=== PATIENT | male | born 1980 | race African-American/Black ===

== ENCOUNTER 2022-10-16 18:13 | Inpatient (IN) | payer OTHER, SELFPAY ==
[2022-10-16] VITALS (7 sets, daily range): BP systolic 97–111; BP diastolic 53–78; PULSE 119–149; RESP 14–24; TEMP 37.5; O2SAT 94–99
--- NOTE | ~2022-10-16 | XR_ITS ---
EXAMINATION: XR chest 1V portable DATE: 10/25/2022 06:12 INDICATION: Intubated. TECHNIQUE: A single frontal view of the chest was obtained. COMPARISON: Chest single view 10/24/2022, CT abdomen and pelvis 11/15/2022 FINDINGS: There are airspace opacities in the mid and lower lung zones. No pleural effusion or pneumo thorax. The heart size is normal. The endotracheal tube tip is 2.5 cm above the chel. The nasogastr ic tube tip is in the stomach. A right internal jugular central venous catheter is seen with tip at t he superior cavoatrial junction. IMPRESSION: 1. Airspace opacities in the mid and lower lung zones with improvement on the right, consistent with atelectasis versus pneumonia. Reviewed, dictated and finalized at location A. D WASTE COLLECTOR IMPRESSION: 1. Airspace opacities in the mid and lower lung zones with improvement on the r ight, consistent with atelectasis versus pneumonia.
--- NOTE | ~2022-10-16 | XR_ITS ---
XR chest 1V portable 10/27/2022 06:39 Indication: Respiratory failure Procedure: AP portable chest Comparison: Comparison to multiple prior studies sequentially, with oldest reviewed study dated 09/26. Findings: Endotracheal tube tip 2.8 cm above the chel. NG tube in the stomach. Right IJ central alejandra e tip near the cavoatrial junction. Heart size normal. Right perihilar and bibasilar airspace disease . Small right pleural effusion. No pneumothorax. Impression: 1: Stable right perihilar and bibasilar airspace disease which may represent pneumonia and/or atelect asis 2: Small right pleural effusion.. Reviewed, dictated and finalized at location A. ISH PROFESSOR Impression: 1: Stable right perihilar and bibasilar airspace disease which may represent pn eumonia and/or atelectasis 2: Small right pleural effusion..
--- NOTE | ~2022-10-16 | XR_ITS ---
EXAMINATION: XR chest 1V portable DATE: 10/28/2022 06:26 INDICATION: Respiratory failure TECHNIQUE: frontal view of the chest was obtained. COMPARISON: Chest radiograph dated 10/27/2022 FINDINGS: Endotracheal tube tip 2.5 cm above the chel. Nasogastric tube tip in proximal side port in the body of the stomach. Right internal jugular central venous catheter with distal tip at the superior cavoa trial junction. Opacities in the bilateral mid and lower lung zones with interval increase in the left perihilar cyndi on. No pneumothorax or definitive pleural effusion. The cardiomediastinal silhouette is within normal limits conifer rightward rotation of the patient. IMPRESSION: 1. Opacities in the bilateral mid and lower lung zones with increasing left perihilar region which co uld represent pneumonia, pulmonary edema, atelectasis or some combination thereof. Reviewed, dictated and finalized at location A. COORDINATOR IMPRESSION: 1. Opacities in the bilateral mid and lower lung zones with increasing left per ihilar region which could represent pneumonia, pulmonary edema, atelectasis or some combination thereof.
--- NOTE | ~2022-10-16 | XR_ITS ---
EXAMINATION: XR chest 1V portable DATE: 10/30/2022 06:19 INDICATION: Respiratory failure TECHNIQUE: frontal view of the chest was obtained. COMPARISON: Chest radiograph dated 10/29/22 FINDINGS: Reason increased lucency with architectural distortion prominent than the left lung and right upper l raul zone consistent with emphysema. Subtle increased opacities in the right lower lung zone. Mild alejandra ear atelectasis/scarring at the left lung base. No pleural effusion or pneumothorax. The cardiomedias tinal silhouette is normal. IMPRESSION: 1. Opacities in the right lower lung zone consistent with atelectasis and/or pneumonia. 2. Emphysema. Reviewed, dictated and finalized at location A. OWNER OPERATOR IMPRESSION: 1. Opacities in the right lower lung zone consistent with atelectasis and/or pn eumonia. 2. Emphysema.
--- NOTE | ~2022-10-16 | XR_ITS ---
EXAMINATION: XR chest 1V portable INDICATION: Central line position assessment TECHNIQUE: Portable AP chest at 0409 hours COMPARISON: 10/30/2022 FINDINGS: A right internal jugular central venous catheter is partially retracted but remains in the proximal superior vena cava. There is a small right pleural effusion. No pneumothorax is identified. Right basilar airspace opacities persist with slight worsening. The cardiomediastinal silhouette is s table. The patient is rotated. IMPRESSION: 1. Partially retracted right internal jugular central venous catheter with its tip in the proximal bird perior vena cava. 2. Small right pleural effusion. 3. Right basilar airspace opacity with slight worsening, consistent with atelectasis versus pneumonia . Reviewed, dictated and finalized at location A. TH ASSESSMENT AND TREATMENT TEACHER IMPRESSION: 1. Partially retracted right internal jugular central venous catheter with its tip in the proximal superior vena cava. 2. Small right pleural effusion. 3. Right basilar airspace opacity with slight worsening, consistent with atelec tasis versus pneumonia.
--- NOTE | ~2022-10-16 | XR_ITS ---
EXAMINATION: XR chest 1V portable DATE: 10/31/2022 09:04 INDICATION: Central line adjustment. TECHNIQUE: A single frontal view of the chest was obtained. COMPARISON: Chest single view at 8:42 AM FINDINGS: There are lucencies and interstitial opacities in the lungs, consistent with emphysema. The re are airspace opacities at the lung bases. There are small pleural effusions. No pneumothorax. The heart size is normal. The heart is centered in the right chest, which is chronic. A right upper extre mity peripherally inserted central venous catheter (PICC) is seen with tip in the superior cavoatrial junction. IMPRESSION: 1. PICC tip at the superior cavoatrial junction. 2. Stable airspace opacities at the lung bases, consistent with atelectasis versus pneumonia. 3. Stable small pleural effusions. 4. Emphysema. Reviewed, dictated and finalized at location E. ETING ENGINEER IMPRESSION: 1. PICC tip at the superior cavoatrial junction. 2. Stable airspace opacities at the lung bases, consistent with atelectasis tavo jose pneumonia. 3. Stable small pleural effusions. 4. Emphysema.
--- NOTE | ~2022-10-16 | XR_ITS ---
EXAMINATION: XR chest 1V portable Exam Date/Time: 10/16/2022 20:50 TEXTILE ENGRAVER HISTORY: ams Comparison: CT abdomen and pelvis, same date. RESULT: Lines, tubes, and devices: None. Lungs and pleura: Medial bullae, larger in the left lung. Right basilar linear and subsegmental opac ities. Left medial basal subsegmental atelectasis/consolidation. Cardiomediastinal silhouette: Stable. Other: No acute osseous or upper abdominal finding. IMPRESSION: Anteromedial pulmonary bullae. Right basilar scar/atelectasis. Left medial basal atelectasis/consolid ation. Reviewed, dictated and finalized at location K. ILE ENGRAVER IMPRESSION: Anteromedial pulmonary bullae. Right basilar scar/atelectasis. Left medial basa l atelectasis/consolidation.
--- NOTE | ~2022-10-16 | CT_ITS ---
EXAMINATION: CT abdomen pelvis wo con DATE: 10/16/2022 20:49 INDICATION: Abdominal pain in an autistic, nonverbal patient. TECHNIQUE: Computed tomography (CT) of the abdomen and pelvis was performed without intravenous contr ast. Automated exposure control and iterative reconstruction technique were employed. The dose-length product was 427.12 mGy-cm. COMPARISON: None. FINDINGS: Lower thorax: Anteromedial pulmonary air cysts and bullae, large and extensive on the left. Left basi lar atelectasis/consolidation Liver: Normal. Biliary/Gallbladder: Gallbladder is normal. No bile duct dilation. Pancreas: No mass or duct dilation. Spleen: Normal. Adrenals:No mass. Kidneys: No suspicious mass, stone, or hydronephrosis. Left lower pole simple cyst. GI tract: Severe distal sigmoid and rectal dilation up to 9.4 cm, with a large volume of formed stool . Severe distal sigmoid and rectal wall edema with mild surrounding inflammatory change. No small bow el dilation. Normal appendix. Mesentery/Peritoneum: No ascites, mass, or free air. Retroperitoneum: No mass. Pelvis: Pelvic organs are within normal limits. Soft Tissues: Soft tissues and body wall unremarkable. Bones: No acute osseous finding. IMPRESSION: Marked fecal impaction of the sigmoid and rectum, with CT findings concerning for stercoral colitis. Reviewed, dictated and finalized at location K. INSTRUCTOR IMPRESSION: Marked fecal impaction of the sigmoid and rectum, with CT findings concerning f or stercoral colitis.
--- NOTE | ~2022-10-16 | XR_ITS ---
XR abdomen NG/feed tube insert DATE: 10/19/2022 13:54 INDICATION: Reinsertion of NG tube after patient pulling out the tube TECHNIQUE: Portable AP view on 10/19/2022 at 1349 hours COMPARISON: 10/18/2022 KUB at 2256 hours FINDINGS: NG tube is present within the body of the stomach, the proximal side-port well beyond the d iaphragmatic hiatus. [place] overlie the abdomen. Right internal jugular central venous ET tube in satisfactory position. Catheter tip overlies the right atrium. Heart size is normal. There is atelectasis of the right lung with rightward shift of heart and mediastinum. IMPRESSION: NG tube in body of stomach in satisfactory position Reviewed, dictated and finalized at Location A. Reviewed, dictated and finalized at location A. E HOST
--- NOTE | ~2022-10-16 | CT_ITS ---
EXAMINATION: CT chest abdomen pelvis w con DATE: 11/01/2022 09:21 INDICATION: Leukocytosis. Cutaneous drainage of a prior postoperative abscess. TECHNIQUE: Computed tomography (CT) of the chest, abdomen, and pelvis was performed without intraveno us contrast. Automated exposure control and iterative reconstruction technique were employed. The dos e-length product was 335.71 mGy-cm. COMPARISON: CT dated 10/25/2022 FINDINGS: CHEST CT: Emphysema with prominent bullous changes at the apices and along the anterior margins of the right up per lobe lobes and anterior margin of the entire left lung patchy consolidation groundglass opacities in the right lower lobe and dependent right middle lobe with appearance and distribution suggesting aspiration and/or pneumonia. Small left pleural effusion. Opacities at the posterior medial left lowe r lobe more likely related to compressive atelectasis. Heart size is normal. No pericardial effusion. Thoracic aorta is normal in caliber with no dissection. Mild likely reactive bilateral hilar and med iastinal lymphadenopathy. Small sliding-type hiatal hernia. Bones are unremarkable. Right upper extre mity peripherally inserted central venous catheter (PICC) tip at the superior cavoatrial junction.. ABDOMEN/PELVIS CT: Portal venous thrombosis in a branch of the right portal vein supplying segment 5 of the liver. 9 mm low-attenuation lesion also in segment 5 of the liver most likely hepatic cyst or hemangioma. Decompr essed gallbladder, spleen, pancreas, bilateral adrenal glands and right kidney are normal. 1.2 cm lef t renal cyst. Gas and a Cardona catheter within the decompressed bladder which appears to demonstrate a dditional wall thickening with some surrounding inflammatory stranding suspicious for cystitis. Posto perative change of recent partial sigmoid colon resection with suture line along a Lowe's pouch co ntaining a small amount of residual stool in the pelvis. There is a left lower quadrant and colostomy with associated parastomal herniation of fat. Midline skin lencho along the anterior abdomen and pe lvis. Diffuse wall thickening of the remaining colon consistent with colitis. No dilated bowel to sug gest obstruction. A percutaneous abscess drain remains in place with no residual abscess or extra-ali mentaric gas. There is edema in the mesenteric and extraperitoneal fat in the pelvis with minimal non loculated ascites. There is enhancement of the draining veins arising from the distal colon at the an astomosis which meets a nonopacified vein arising from deep in the pelvis likely associated with the Lowe's pouch before draining into the patent inferior mesenteric vein. It is unclear whether the n onopacified veins are related to phase of contrast or additional venous thrombosis. No pathologically enlarged abdominal or pelvic lymphadenopathy. Bones are unremarkable. IMPRESSION: 1. Consolidation and groundglass opacities in the dependent right middle and lower lobes which could represent aspiration and/or pneumonia. 2. Severe bullous emphysema. 3. Small left pleural effusion with mild dependent consolidation the left lower lobe with appearance favoring atelectasis over pneumonia. 4. Portal venous thrombosis of a portal vein branch supplying segment 5 of the liver. Possible additi onal portal venous thrombosis along the branches of the inferior mesenteric vein draining the sigmoid colon distal to the site of recent partial sigmoid colectomy with left lower quadrant and colostomy. 5. Pelvic abscess drain remains in place with no residual abscess. 6. Diffuse wall thickening of the colon consistent with colitis which could be infectious, inflammato ry or ischemic in etiology. Reviewed, dictated and finalized at location A. OGRAPHIC SPOTTER IMPRESSION:
--- NOTE | ~2022-10-16 | XR_ITS ---
EXAMINATION: XR chest 1V portable DATE: 10/18/2022 14:42 INDICATION: Hypoxia TECHNIQUE: frontal view of the chest was obtained. COMPARISON: Chest radiograph dated 10/17/[address] dated 10/16/2022 FINDINGS: Right internal jugular central venous catheter with distal tip at the high right atrium. Nasogastric tube with tip in proximal side port in the body of the stomach. There is rightward deviation of the h eart and mediastinum and increased lucency at the medial left lung which on prior CT results from emp hysema with a large paramediastinal bulla with subtle curvilinear atelectasis along its lateral venessa n in the right lower lung zone. Additional lucencies likely related to emphysema at the right lung ba se and along the mid right side of the mediastinum. No focal airspace opacities, pulmonary edema, ple ural effusion or pneumothorax. Heart size is normal. IMPRESSION: 1. Emphysema with mild linear atelectasis left lower lung zone along the margin of a large paramedias tinal bulla are appreciated on prior CT. Reviewed, dictated and finalized at location A. RUCTIONAL SPECIALIST IMPRESSION: 1. Emphysema with mild linear atelectasis left lower lung zone along the margin of a large paramediastinal bulla are appreciated on prior CT.
--- NOTE | ~2022-10-16 | XR_ITS ---
EXAMINATION: XR chest 1V portable DATE: 10/23/2022 06:18 INDICATION: Respiratory failure. TECHNIQUE: A single frontal view of the chest was obtained. COMPARISON: Chest single view 10/22/2022 FINDINGS: There are airspace opacities in the mid and lower lung zones with a perihilar predominance. There are lucencies in the lungs, consistent with emphysema. No pleural effusion or pneumothorax. Th e heart size is normal. The heart is centered in the right chest, which is chronic. The endotracheal tube tip is 2.2 cm above the chel. The nasogastric tube tip is in the stomach. A right internal jug ular central venous catheter is seen with tip in the right atrium. IMPRESSION: 1. Stable airspace opacities in the mid and lower lung zones with a perihilar predominance, consisten t with atelectasis versus pneumonia. 2. Emphysema. Reviewed, dictated and finalized at location A. T HOLE PUNCHER IMPRESSION: 1. Stable airspace opacities in the mid and lower lung zones with a perihilar p redominance, consistent with atelectasis versus pneumonia. 2. Emphysema.
--- NOTE | ~2022-10-16 | XR_ITS ---
EXAMINATION: XR chest 1V portable INDICATION: Respiratory failure TECHNIQUE: Portable AP chest at 0533 hours COMPARISON: 10/23/2022 FINDINGS: The endotracheal tube ends approximately 1.9 cm above the chel. The nasogastric tube is i n the stomach. A right internal jugular catheter ends with its tip in the right atrium. The heart siz e is normal. There is mild elevation of the right hemidiaphragm. No pleural effusion or pneumothorax identified. Airspace opacities persist in the mid and lower lung zones without significant change. IMPRESSION: 1. Stable airspace opacities of the mid and lower lung zones, consistent with atelectasis versus pneu monia. Reviewed, dictated and finalized at location A. MBLY DEPARTMENT SUPERVISOR IMPRESSION: 1. Stable airspace opacities of the mid and lower lung zones, consistent with a telectasis versus pneumonia.
--- NOTE | ~2022-10-16 | US_ITS ---
EXAMINATION: US abdomen limited DATE: 10/24/2022 08:31 INDICATION: Abnormal liver function tests. TECHNIQUE: Multiple grayscale and Doppler ultrasound images of the abdomen were obtained. COMPARISON: CT abdomen and pelvis 10/16/2022 FINDINGS: The pancreas is obscured by bowel gas. The liver is normal without focal lesion. There is n ormal flow in main portal vein. The gallbladder is contracted. No gallstones, gallbladder wall thicke krish, or sonographic Gill sign. The common duct is normal and measures 3 mm. IMPRESSION: 1. No etiology for abnormal liver function tests. Reviewed, dictated and finalized at location A. OL COMMANDER
--- NOTE | ~2022-10-16 | XR_ITS ---
EXAMINATION: XR chest PICC line DATE: 10/31/2022 09:04 INDICATION: Central line placement. TECHNIQUE: A single frontal view of the chest was obtained. COMPARISON: Chest single view at 4:30 AM, CT abdomen and pelvis 10/25/2022 FINDINGS: There are lucencies and interstitial opacities in the lungs, consistent with emphysema. The re are airspace opacities at the lung bases. There are small pleural effusions. No pneumothorax. The heart size is normal. The heart is centered in the right chest, which is chronic. A right upper extre mity peripherally inserted central venous catheter (PICC) is seen with tip in the proximal right atri um. IMPRESSION: 1. PICC tip in the proximal right atrium. 2. Stable airspace opacities at the lung bases, consistent with atelectasis versus pneumonia. 3. Emphysema. Reviewed, dictated and finalized at location E. DENT CARE AID IMPRESSION: 1. PICC tip in the proximal right atrium. 2. Stable airspace opacities at the lung bases, consistent with atelectasis tavo jose pneumonia. 3. Emphysema.
--- NOTE | ~2022-10-16 | XR_ITS ---
EXAMINATION: XR abdomen obstructive series DATE: 10/23/2022 09:01 INDICATION: Abdominal distention. TECHNIQUE: Upright and supine views of the abdomen were obtained. COMPARISON: Abdomen radiographs 10/19/2022 FINDINGS: The small bowel is normal caliber. There is distention of the colon. No free intraperitonea l gas. Skin lencho are noted. The nasogastric tube tip is in the stomach. The endotracheal tube tip is 2.1 cm above the chel. There is a central venous catheter tip in right atrium. IMPRESSION: 1. Distended colon, consistent with adynamic ileus. Reviewed, dictated and finalized at location A. ICAL SAFETY MANAGER
--- NOTE | ~2022-10-16 | XR_ITS ---
XR chest 1V portable DATE: 10/20/2022 06:03 INDICATION: Mechanical ventilation. Respiratory failure. TECHNIQUE: Portable AP chest on 10/20/2022 0545 hours COMPARISON: 10/19/2022 portable AP chest at 0922 hours FINDINGS: ET tube in satisfactory position 2.5 cm above chel. NG tube in satisfactory position in g astric fundus. Right internal jugular central venous catheter tip overlies the right atrium. There is right lung volume loss and infiltrate and/atelectasis in the right mid and lower lung zones, with mild improvement since 10/19/2022. Minimal infiltrate or atelectasis left mid and lower lung zones. IMPRESSION: Right lung volume loss and right lung infiltrate/atelectasis, mildly improved since 10/19 Reviewed, dictated and finalized at location A. ING MACHINE OPERATOR IMPRESSION: Right lung volume loss and right lung infiltrate/atelectasis, mildl y improved since 10/19/2022
--- NOTE | ~2022-10-16 | XR_ITS ---
XR chest 1V portable DATE: 10/19/2022 09:00 INDICATION: Respiratory failure TECHNIQUE: Portable supine AP chest on 10/19/2022 0856 hours COMPARISON: 10/18/2022 portable AP chest at 1437 hours FINDINGS: There is interval right lung atelectasis and infiltrate with rightward shift of heart and m ediastinum since 10/18/2022. NG tube in satisfactory position in stomach. Right internal jugular central venous catheter with tip overlying right atrium. Heart size is normal. No pneumothorax. Diffuse osteopenia. IMPRESSION: Right lung atelectasis with rightward shift of heart and mediastinum Reviewed, dictated and finalized at location A. M SECURITY OR SURVEILLANCE MONITOR IMPRESSION: Right lung atelectasis with rightward shift of heart and mediastinu m
--- NOTE | ~2022-10-16 | XR_ITS ---
EXAM: XR abdomen obstructive series DATE: 10/30/2022 14:31 HISTORY: Multiple episodes of vomiting . COMPARISON: None available. FINDINGS: A drain or catheter projects over the lower midline abdomen. Left lower quadrant ostomy. Mu ltiple midline skin lencho Clear lung bases. Normal bowel gas pattern. No organomegaly. No abnormal abdominal calcification. Lumbar scoliosis. IMPRESSION: No radiographic evidence of obstruction or ileus. Reviewed, dictated and finalized at location K. AL MEDIA SPECIALIST
--- NOTE | ~2022-10-16 | XR_ITS ---
XR chest 1V portable 10/26/2022 06:16 Indication: Respiratory distress. Intubation. Procedure: AP portable chest Comparison: 10/25/2022 and 10/24/2022 Findings: Endotracheal tube tip just above the chel. Recommend retraction 3 cm. Bibasilar infiltrat es may represent atelectasis or pneumonia. Right IJ central line tip in the SVC near the cavoatrial j unction. NG tube in the stomach. No pneumothorax. Impression: 1: Bibasilar infiltrates may represent atelectasis and/or pneumonia. 2: Endotracheal tube just above the chel. Recommend retraction approximately 3 cm. Reviewed, dictated and finalized at location A. MBLY INSPECTOR Impression: 1: Bibasilar infiltrates may represent atelectasis and/or pneumonia. 2: Endotracheal tube just above the chel. Recommend retraction approximately 3 cm.
--- NOTE | ~2022-10-16 | XR_ITS ---
. XR chest ET placement DATE: 10/17/2022 01:07 INDICATION: ET and NG tube placement TECHNIQUE: Portable AP chest on 10/13/2022 at 0102 hours COMPARISON: 10/16/2022 portable AP chest at 2051 hours FINDINGS: ET tube in satisfactory position 4.5 cm above chel. NG tube in gastric fundus, the proxim al side-port 7 cm distal to the diaphragmatic hiatus. Right internal jugular central venous catheter tip is situated in the lower superior vena cava. Bilateral bullous emphysema, some associated rightward shift of the heart mediastinum due to a promin ent bulla along the left cardiac margin. There is mild atelectasis at the lung bases. The lungs otherwise appear clear of consolidation. No pl eural effusion or pneumothorax is evident. IMPRESSION: ET and NG tubes in satisfactory position Right internal jugular central venous catheter in lower superior vena cava Bibasilar atelectasis Reviewed, dictated and finalized at Location A. Reviewed, dictated and finalized at location A. ICAL CARE NURSE SPECIALIST
--- NOTE | ~2022-10-16 | US_ITS ---
EXAMINATION:US venous doppler LE BI INDICATION:Evaluate for deep venous thrombosis TECHNIQUE: Multiple grayscale, color flow and Doppler images of the right and left lower extremity de ep venous systems were obtained and reviewed. COMPARISON:No prior studies for comparison. FINDINGS: The common femoral, superficial femoral and popliteal veins demonstrate normal respiratory variation, augmentation and compressibility. Color flow is also seen within the posterior tibial, pe roneal, greater saphenous and profunda veins. IMPRESSION: 1: No lower extremity deep venous thrombosis. Reviewed, dictated and finalized at location A. ER TIRE CURER
--- NOTE | ~2022-10-16 | CT_ITS ---
EXAMINATION: CT guide absc cath placement DATE: 10/25/2022 17:11 INDICATION: Abdominal abscess. Valorie pouch anastomosis leak. TECHNIQUE: Consent was obtained. The skin overlying the abdomen was prepped and draped in usual steri le fashion. Anesthetic was administered with 1% lidocaine subcutaneously. An 18 gauge trochar needle was inserted into the abdominal abscess with CT guidance. The needle was exchanged over a wire for 6 Namibian, 8 Namibian, and 9 Namibian dilators and then for an 8.5 Namibian pigtail catheter. The catheter wa s stitched to the skin, and a sterile dressing was applied. The mA was adjusted according to patient size. Iterative reconstruction technique was employed. The dose-length product was 177.03 mGy-cm. The re were no immediate complications. FINDINGS: CT images demonstrate the catheter within the abdominal abscess. Fluid was not sent for cul ture. IMPRESSION: 1. Successful CT-guided abscess drainage adjacent to the Valorie pouch. Reviewed, dictated and finalized at location A. ATANT DIVER QUALIFIED
--- NOTE | ~2022-10-16 | XR_ITS ---
EXAMINATION: XR abdomen NG/feed tube insert DATE: 10/18/2022 23:00 INDICATION: Nasogastric tube insertion TECHNIQUE: A supine view of the abdomen and lower chest was obtained for evaluation of feeding tube placement. COMPARISON: CT dated 10/16/2022 FINDINGS: Is a gastric tube tip in proximal side port in the body of the stomach. Surgical clips along the midl ine of the lower abdominal wall. Multiple loops of gas-filled large and small bowel without madhu dil ation and would favor postoperative ileus over obstruction. Mild discoid atelectasis at the lateral l eft lung base. Heart size is normal. IMPRESSION: 1. Nasogastric tube in the stomach with likely postoperative ileus. Reviewed, dictated and finalized at location A. STRETCHER
--- NOTE | ~2022-10-16 | XR_ITS ---
EXAMINATION: XR chest 1V portable DATE: 10/22/2022 05:46 INDICATION: Respiratory failure. TECHNIQUE: A single frontal view of the chest was obtained. COMPARISON: Chest single view 10/21/2022 FINDINGS: There are lucencies in the lungs, consistent with emphysema. There are airspace opacities i n the mid and lower lung zones. No pleural effusion or pneumothorax. The heart size is normal. The he art is centered in the right chest, which is chronic. The endotracheal tube tip is 2.0 cm above the c marianela. The nasogastric tube tip is in the stomach. A right internal jugular central venous catheter i s seen with tip at the superior cavoatrial junction. IMPRESSION: 1. Mildly worsened airspace opacities in the mid and lower lung zones, consistent with atelectasis ve rsus pneumonia. 2. Emphysema. Reviewed, dictated and finalized at location A. LAYER IMPRESSION: 1. Mildly worsened airspace opacities in the mid and lower lung zones, consiste nt with atelectasis versus pneumonia. 2. Emphysema.
--- NOTE | ~2022-10-16 | XR_ITS ---
EXAMINATION: XR chest 1V portable INDICATION: Respiratory failure TECHNIQUE: Portable AP chest at 0510 hours COMPARISON: 10/28/2022 FINDINGS: The endotracheal tube ends approximately 3.0 cm above the chel. The nasogastric tube is i n the stomach. A right internal jugular central venous catheter ends with this tip in the distal supe rior vena cava. No pleural effusion or pneumothorax. Airspace opacities in the right mid and lower leonie ng zones demonstrates slight interval worsening. Opacities of the left mid and lower lung zones have improved. IMPRESSION: 1. Improved airspace opacities of the left mid and lower lung zones and worsening airspace opacities of the right mid and lower lung zones, consistent with atelectasis versus pneumonia versus pulmonary edema. Reviewed, dictated and finalized at location A. SHOP FLOORPERSON IMPRESSION: 1. Improved airspace opacities of the left mid and lower lung zones and worseni ng airspace opacities of the right mid and lower lung zones, consistent with at electasis versus pneumonia versus pulmonary edema.
--- NOTE | ~2022-10-16 | XR_ITS ---
EXAMINATION: XR chest 1V portable DATE: 10/21/2022 05:42 INDICATION: Respiratory failure. TECHNIQUE: A single frontal view of the chest was obtained. COMPARISON: Chest single view 10/20/2022, CT abdomen and pelvis 10/16/2022 FINDINGS: The patient is rotated to his right. There are lucencies in the lungs, consistent with emph ysema. There are airspace opacities in right mid and lower lung zones and left lower lung zone. No pl eural effusion or pneumothorax. The heart size is normal. The endotracheal tube tip is in 2.6 cm abov e the chel. A nasogastric tube tip is in the stomach. A right internal jugular central venous charo ter is seen with tip in the right atrium. Abdominal skin lencho are noted. IMPRESSION: 1. Stable airspace opacities in right mid and lower lung zones and left lower lung zone, consistent w ith atelectasis versus pneumonia. 2. Emphysema. Reviewed, dictated and finalized at location A. NITIES INSTRUCTOR IMPRESSION: 1. Stable airspace opacities in right mid and lower lung zones and left lower l raul zone, consistent with atelectasis versus pneumonia. 2. Emphysema.
--- NOTE | ~2022-10-16 | CT_ITS ---
EXAMINATION: CT abdomen pelvis wo con DATE: 10/25/2022 13:07 INDICATION: Sepsis. TECHNIQUE: Computed tomography (CT) of the abdomen and pelvis was performed without intravenous contr ast. The dose-length product was 331.23 mGy-cm. Automated exposure control and iterative reconstructi on technique were employed. COMPARISON: CT dated 10/16/2022. FINDINGS: Interval partial colon resection with colostomy in the left mid abdomen. There is a gas col lection adjacent to the anastomotic site, suspicious for abscess. There is mild surrounding phlegmono us change. Heart size normal. There is an NG tube in the stomach. There are bullous emphysematous changes in the lung bases. There is bibasilar atelectasis. Small pleural effusions. The liver, spleen, pancreas, adrenal glands and kidneys are unremarkable. Gallbladder is present. No biliary dilatation. No acute osseous abnormality. IMPRESSION: 1. Interval partial colectomy. New development of gas collection with surrounding phlegmonous change adjacent to the anastomotic site, suspicious for developing infection with possible leak 2: Small pleural effusions. Bibasilar dependent airspace disease which may represent atelectasis or developing pneumonia.. Reviewed, dictated and finalized at location A. MICS AX TECHNICAL ARCHITECT IMPRESSION: 1. Interval partial colectomy. New development of gas collection with surroundi ng phlegmonous change adjacent to the anastomotic site, suspicious for developi ng infection with possible leak 2: Small pleural effusions. Bibasilar dependent airspace disease which may rep resent atelectasis or developing pneumonia..
--- NOTE | ~2022-10-16 | XR_ITS ---
XR chest ET placement DATE: 10/19/2022 09:28 INDICATION: Intubation TECHNIQUE: Portable AP view on 10/19/2022 at 0922 hours COMPARISON: 10/19/2022 portable AP chest at 0856 hours FINDINGS: There is ET tube placement, the tip 2.4 cm above the chel. NG tube in stomach. Right internal jugular central venous catheter tip overlies the upper right atrium. No pneumothorax. There is increased right lung infiltrate and atelectasis since 0856 hours with rightward shift of the heart mediastinum. IMPRESSION: ET tube placement in satisfactory position Right lung atelectasis and infiltrate, rightward shift of heart and mediastinum Reviewed, dictated and finalized at Location A. Reviewed, dictated and finalized at location A. ON WRAPPER
[2022-10-16 18:51] LABS: Hemoglobin 15.3 g/dL (14.0-18.0); Mean Corpuscular HGB Conc 29.4 g/dl (32-36); Mean Corpuscular Hemoglobin 24.1 pg (26-34); Mean Platelet Volume 8.6 fl (7.4-10.4); Platelet Count Result 456 k/mm3 (150-375); Red Blood Count 6.34 M/mm3 (4.6-6.20); Red Cell Distribution Width 19.7 % (11.5-14.5); White Blood Count 37.1 K/mm3 (4.5-10.0)
--- NOTE | 2022-10-16 19:04 | ED.GENADULT ---
HPI - General Adult General Chief complaint: Nausea/Vomiting/Diarrhea Stated complaint: n/v/d Time Seen by Provider: 10/16/22 18:59 Source: RN notes reviewed History of Present Illness HPI narrative: Patient presents emergency department from [facility] via EMS for nausea vomiting. Per staff the patient has autism is nonverbal at baseline. The patient has been noted to have nausea and vomiting as well as a distended abdomen per the staff the patient also was noted to be having loose stools. Patient currently is unable to give any history as he is nonverbal at baseline. No measured fevers per staff at [facility] Related Data Home Medications Medication Instructions Recorded Confirmed bisacodyl 5 mg tablet,delayed 5 mg PO DAILY PRN Constipation 10/16/22 10/17/22 release pantoprazole 40 mg tablet,delayed 40 mg PO DAILY 10/16/22 10/17/22 release Allergies Allergy/AdvReac Type Severity Reaction Status Date / Time No Known Allergies Allergy Verified 10/16/22 19:27 Review of Systems Review of Systems: Unable to obtain review of systems secondary to nonverbal baseline ROS unobtainable: Yes unobtainable due to medical condition [facility] Past Medical History Medical History (Updated 10/17/22 @ 05:27 by Westley Myles DO) Autism Social History Social History (Updated 10/16/22 @ 19:05 by Westley Myles DO) Smoking status: Never smoker Alcohol intake: never Substance use: never Spiritual care concerns: No Exam Narrative: APPEARANCE: No acute distress, nontoxic, resting in bed EYES: EOMI HEENT: Normocephalic, atraumatic, OMM RESPIRATORY: No respiratory distress Clear to auscultation bilaterally with no rhonchi wheezing or rales. CARDIOVASCULAR: Tachycardic and regular without murmurs rubs or gallops. ABDOMINAL: Soft, nontender, nondistended, no rebound or guarding MUSCULOSKELETAl: Moves all extremities. No clubbing, cyanosis or edema. NEURO: Laying in bed with eyes open nonverbal, does not follow commands SKIN:: Warm, dry. No rashes lesions or abrasions PSYCHIATRIC: Normal affect/mood, Course Course Emergency Course: Patient is uncooperative with lines of attempt to start IVs continually moving in bed unable to be redirected he is awake but does not follow commands will give Ativan at this time Called and discussed with patient's sister Samia updated on results of work-up and need for OR she states that the patient is a full code and that the family would want everything done states that her father Man is the POA I called discussed with Man he also reiterates that the patient is a full code Discussed with Dr. Perez who come to emergency department to evaluate the patient with plan to take patient to the OR Patient has had blood work drawn x2 both times blood work has coagulated and need for redraw. Patient this time is very agitated with any attempts at drawing blood and uncooperative with arm having to be held Dr. Perez in emergency room to evaluate patient. At this time will take patient to the ER he states he will place central line or line in OR Vital Signs Vital signs: Vital Signs Pulse Rate 138 H 10/16/22 18:36 Respiratory Rate 24 H 10/16/22 18:36 Blood Pressure 97/65 L 10/16/22 18:36 Pulse Oximetry 98 10/16/22 18:36 Oxygen Delivery Room Air 10/16/22 18:36 Temperature 98.1 F 10/17/22 04:00 Pulse Rate 119 H 10/17/22 05:14 Respiratory Rate 18 10/17/22 04:00 Blood Pressure 94/58 L 10/17/22 04:00 Pulse Oximetry 100 10/17/22 05:14 Oxygen Delivery Mechanical Ventilation 10/17/22 05:14 Fraction of Inspired Oxygen 50 10/17/22 05:14 Medical Decision Making Vital Signs Vital Signs: Vital Signs Pulse Rate 138 H 10/16/22 18:36 Respiratory Rate 24 H 10/16/22 18:36 Blood Pressure 97/65 L 10/16/22 18:36 Pulse Oximetry 98 10/16/22 18:36 Oxygen Delivery Room Air 10/16/22 18:36 Temperature 98.1 F 10/17/22 04:00 Pulse Rate 119
--- NOTE | 2022-10-16 19:05 | ECG_ITS ---
Measurements Intervals [place] Rate: 141 P: 53 NH: 128 QRS: 63 QRSD: 72 T: 80 QT: 256 QTc: 393 Interpretive Statements SINUS TACHYCARDIA BORDERLINE T WAVE ABNORMALITY- HIGH LATERAL LEADS ABNORMAL ECG NO PREVIOUS ECG AVAILABLE FOR COMPARISON Electronically Signed On 10-17-2022 8:22:49 RECRUIT INSTRUCTOR by Jose Cruz Nunez D.O.
[2022-10-16 19:08] LABS: Band Neutrophils Percent 15 % (0-6); Lymphocytes Absolute Manual 2.59 K/mm3 (1.1-4.5); Monocytes Absolute Manual 1.85 K/mm3 (0.1-0.90); Monocytes Percent Manual 5 % (3-9); Neutrophils Absolute Manual 32.64 K/mm3 (1.3-6.7); Neutrophils Percent Manual 73 % (46-73); Total Cells Counted 100
[2022-10-16 19:09] LABS: Anisocytosis 2+ (NORMAL); Platelet Estimate Increased (Adequate); Schistocytes None Seen (NORMAL)
[2022-10-16 19:10] LABS: Hypochromasia 1+ (NORMAL)
--- NOTE | 2022-10-16 19:17 | PC.NURSE ---
attempted IV x2, pt combative and uncooperative for IV attempt. Dr. Sorensen notified
[2022-10-16] MEDS: LORazepam INJ (*CRX) 2 MG/ML VIAL 0.5 MG IM (19:30)
[2022-10-16 19:36] LABS: Lactic Acid Reflex 5.1 mmol/L (0.7-2.0)
[2022-10-16 19:55] LABS: Influenza A QL RT-PCR Positive (Negative); Influenza B QL RT-PCR Negative (Negative); SARS-CoV-2 RNA PCR Negative
[2022-10-16] MEDS: SODIUM CHLORIDE 0.9% IV 1,000 ML 999 ML IV CONT ×2 (20:27→21:39)
--- NOTE | 2022-10-16 22:09 | WPDANESEPPF ---
Anes - Initial Pre Proc Eval Procedure: Operation Date: 10/16/22 22:00 Proposed Procedures p Exploratory Laparotomy, Pos Bowel Resec - Minnie Perez MD Date/Time: 10/16/22 22:09 Surgeon: Minnie Perez MD Pre Op Diagnosis: n/v/d Patient Data Age: 42 Gender: M Height: 1.65 m Weight: 54.5 kg Last Vital Signs Temp 37.5 C 10/16/22 19:11 Pulse 119 H 10/16/22 21:45 Resp 14 10/16/22 21:45 BP 97/53 L 10/16/22 21:45 Pulse Ox 99 10/16/22 21:45 O2 Del Method Room Air 10/16/22 18:36 Allergies Allergy/AdvReac Type Severity Reaction Status Date / Time No Known Allergies Allergy Verified 10/16/22 19:27 Home Medications Medication Instructions Recorded Confirmed Type bisacodyl 5 mg tablet,delayed mg PO 10/16/22 History release pantoprazole 40 mg tablet,delayed mg PO 10/16/22 History release Laboratory Tests 10/16/22 10/16/22 10/16/22 18:44 18:44 19:09 WBC 37.1 K/mm3 H K/mm3 (4.5-10.0) RBC 6.34 M/mm3 H M/mm3 (4.6-6.20) Hgb 15.3 g/dL g/dL (14.0-18.0) Hct 52.0 % % (42.0-52.0) MCV 82.0 fl fl (80-100) MCH 24.1 pg L pg (26-34) MCHC 29.4 g/dl L g/dl (32-36) RDW 19.7 % H % (11.5-14.5) Plt Count 456 k/mm3 H k/mm3 (150-375) MPV 8.6 fl fl (7.4-10.4) Immature Gran % (Auto) Not Reportable Neut % (Auto) Not Reportable Lymph % (Auto) Not Reportable [place] % (Auto) Not Reportable Eos % (Auto) Not Reportable Baso % (Auto) Not Reportable Lymph # (Auto) Not Reportable [place] # (Auto) Not Reportable Eos # (Auto) Not Reportable Baso # (Auto) Not Reportable Abs Immat Gran (auto) Not Reportable Absolute Neuts (auto) Not Reportable Absolute Nucleated RBC Not Reportable Total Counted 100 Neutrophils % (Manual) 73 % % (46-73) Band Neutrophils % 15 % H % (0-6) Lymphocytes % (Manual) 7.0 % L % (18-44) Monocytes % (Manual) 5 % % (3-9) Nucleated RBC % Not Reportable Abs Neuts (Manual) 32.64 K/mm3 H K/mm3 (1.3-6.7) Abs Lymphs (Manual) 2.59 K/mm3 K/mm3 (1.1-4.5) Abs Monocytes (Manual) 1.85 K/mm3 H K/mm3 (0.1-0.90) Platelet Estimate Increased (Adequate) Hypochromasia 1+ (NORMAL) Anisocytosis 2+ (NORMAL) Schistocytes None seen (NORMAL) Sodium Pending Potassium Pending Chloride Pending Carbon Dioxide Pending Anion Gap Pending BUN Pending Creatinine Pending Estim Creat Clear Calc Pending Estimated GFR Pending Glucose Pending Lactic Acid 5.1 mmol/L H* mmol/L (0.7-2.0) Calcium Pending Total Bilirubin Pending AST Pending ALT Pending Alkaline Phosphatase Pending Total Protein Pending Albumin Pending Lipase Pending Influenza A (RT-PCR) Influenza B (RT-PCR) SARS-CoV-2 RNA (RT-PCR) Blood Type Antibody Screen 10/16/22 10/16/22 19:09 21:37 WBC RBC Hgb Hct MCV MCH MCHC RDW Plt Count MPV Immature Gran % (Auto) Neut % (Auto) Lymph % (Auto) [place] % (Auto) Eos % (Auto) Baso % (Auto) Lymph # (Auto) [place] # (Auto) Eos # (Auto) Baso # (Auto) Abs Immat Gran (auto) Absolute Neuts (auto) Absolute Nucleated RBC Total Counted Neutrophils % (Manual) Band Neutrophils %
--- NOTE | 2022-10-16 22:12 | PM.IMHP ---
H&P: HPI History of Present Illness Date/Time: 10/16/22 22:12 Chief Complaint: stercoral colitis Narrative: Pt is a 42 y/o M c h/o developmental delay, autism, non-verbal presenting from [facility] c N/V, abd pain/distention over last wk. Pt apparently has had poor appetite and diarrhea over this time. Pt does not have anyone present at this time and all history is obtained via chart. Pt found to be in shock in ED and imaging and workup suggestive of massive fecal impaction, stercoral colitis, possible ischemic colitis. Review of Systems Review of Systems: ROS unobtainable: Yes unobtainable due to mental status PMFSH Past Medical History Medical History (Updated 10/16/22 @ 22:26 by Minnie Perez MD) Autism Social History Social History (Updated 10/16/22 @ 19:05 by Westley Myles DO) Smoking status: Never smoker Comments unobtainable Meds Home Medications and Allergies Home Medications Medication Instructions Recorded Confirmed Type bisacodyl 5 mg tablet,delayed mg PO 10/16/22 History release pantoprazole 40 mg tablet,delayed mg PO 10/16/22 History release Allergies Allergy/AdvReac Type Severity Reaction Status Date / Time No Known Allergies Allergy Verified 10/16/22 19:27 Vital Signs Vital Signs - 24 hr 10/16/22 18:36 10/16/22 19:11 10/16/22 20:07 Temperature 37.5 C Pulse Rate 138 H 149 H 147 H Respiratory Rate 24 H 20 19 Blood Pressure 97/65 L 105/78 Pulse Oximetry 98 99 Oxygen Delivery Room Air 10/16/22 20:30 10/16/22 21:00 10/16/22 21:35 Temperature Pulse Rate 135 H 130 H 124 H Respiratory Rate 18 17 22 H Blood Pressure 105/67 99/67 L 111/74 Pulse Oximetry 94 97 97 Oxygen Delivery 10/16/22 21:45 Temperature Pulse Rate 119 H Respiratory Rate 14 Blood Pressure 97/53 L Pulse Oximetry 99 Oxygen Delivery Exam Const: General: acute distress severe, ill appearing, lethargic, uncomfortable, cachectic and malnourished Nutritional Appearance: cachectic and malnourished Orientation/consciousness: patient obtunded and lethargic Limitations: behavioral limitations HENMT: Head: normal to inspection, normocephalic and atraumatic Eyes: General: appearance normal, both eyes and all related structures Neck: Neck: normal visual inspection, full ROM and no lymphadenopathy Resp: Auscultation: clear to auscultation bilaterally Cardio: Rate: tachycardic Rhythm: regular rhythm GI: Inspection: normal to inspection and distended GI Palp: Yes abdominal tenderness, Yes Soft to palpation, Yes Firmness to palpation present (GI), Yes Tenderness to palpation present (GI) and Yes Rigid due to palpation Skin: General skin exam: normal color and no rashes or lesions noted Neuro: General: moves all extremities Extrem: General: normal to inspection and full ROM H&P: Results Labs Labs: Short CBC 10/16/22 Range/Units 18:44 WBC 37.1 H (4.5-10.0) K/mm3 Hgb 15.3 (14.0-18.0) g/dL Hct 52.0 (42.0-52.0) % Plt Count 456 H (150-375) k/mm3 Assessment and Plan Assessment and plan (1) Stercoral colitis: Code(s): K52.89 - Other specified noninfective gastroenteritis and colitis Status: Acute Assessment and Plan: massive impaction causing shock, ischemia, d/w father (POA) and wishes to proceed c surgical intervention and likely resection, ostomy (2) Septic shock: Code(s): A41.9 - Sepsis, unspecified organism; R65.21 - Severe sepsis with septic shock Status: Acute Assessment and Plan: secondary to colitis, emergent OR, cont resus, IV abx
[2022-10-16 22:17] LABS: Reflex Lactic Acid Yes or No Add Lactic
--- NOTE | 2022-10-16 22:29 | WPDHPUPDATE1 ---
History and Physical Update Update Date/Time: 10/16/22 22:29 History and Physical has been reviewed, including an updated exam of the patient. There are NO changes in the patient's condition. Risks, benefits, and alternatives have been discussed and questions answered. Patient agrees to proceed with procedure.
--- NOTE | 2022-10-16 23:35 | WPDANESACPN ---
Arterial Cath Proc Note Consent: I have discussed with the patient/family/POA, the non-emergent placement of an arterial catheter, including its clinical necessity/indication and associated potential risks and complications. The patient/family/POA and/or understand(s) and acknowledge(s) the need to proceed with the arterial catheter insertion as an important element of the patient's clinical management. Given emergent patient conditions, temporal constraints may have precluded informed consent. Time-Out: A pre-procedural Time-Out was completed immediately before starting the procedure and confirmed: Patient Identification, Site, Procedure, Patient Position and the Availability of Requisite Equipment. Procedure Note Problems: hypotension Patient position: supine Insertion site: left radial Method of insertion: surface landmarks Advertising Sales Agent prep: sterile gloves, mask and hat Site prep: chlorahexadine Skin anesthesia: general anesthesia Gauge: 20 gauge Length (cm): 4.4 cm Closure/Dressing: antimicrobial disc and tegaderm Complications: None immediately noted/suspected.
--- NOTE | 2022-10-16 23:36 | P.PCNANE_ITS ---
Anes - Cent Venous Cath Note Consent: I have discussed with the patient/family/POA, the non-emergent placement of a central venous catheter, including its clinical necessity/indication and associated potential risks and complications. The patient/family/POA understand(s) and acknowledge(s) the need to proceed with central venous catheter insertion as an important element of the patient's clinical management given emergent patient conditions, temporal constraints may have precluded informed consent. Time-Out: A pre-procedural Time-Out was completed immediately before starting the procedure and confirmed: Patient Identification, Site, Procedure, Patient Position and the Availability of Requisite Equipment. Procedure Note Clinical Indications: sepsis, anticipated hypotension Patient position: trendelenburg Central venous catheter insertion site: right internal jugular CVC method of insertion: ultrasound-guided Hand hygiene/Aseptic technique: Hand hygiene procedures were performed. Aseptic technique was maintained throughout the procedure. Sterile barrier precautions: Maximal sterile barrier precautions, including use of a cap, mask, sterile gown, sterile gloves and a sterile full body drape. Site prep: chlorhexidine Skin anesthesia: placed under general anesthesia Filipino: 7 Lumen: 3 Length (cm): 20 cm Depth of insertion (cm): 16 Closure/Dressing: suture, biopatch and tegaderm Complications: None immediately noted/suspected. Chest X Ray: Ordered/review to follow.
[2022-10-17] VITALS (33 sets, daily range): BP systolic 82–135; BP diastolic 58–87; PULSE 93–129; RESP 13–20; TEMP 36.3–37.7; O2SAT 93–100; BMI 14.5
[2022-10-17 00:21] LABS: Alanine Aminotransferase 37 U/L (6-50); Albumin Level 3.3 g/dL (3.5-5.1); Alkaline Phosphatase 76 U/L (38-126); Anion Gap 10 mmol/L (8-16); Aspartate Amino Transferase 33 U/L (17-59); Bilirubin,Total 0.8 mg/dL (0.2-1.3); Blood Urea Nitrogen 29 mg/dL (9-20); Calcium 7.3 mg/dL (8.4-10.2); Carbon Dioxide 22 mmol/L (22-30); Chloride 103 mmol/L (98-107); Estimated CRCL calculation 80 ml/min; Estimated Glomerular Filt Rate > 60; Glucose 122 mg/dL (65-110); Lipase 32 U/L (23-300); Potassium 4.8 mmol/L (3.4-5.0); Sodium 135 mmol/L (137-145)
[2022-10-17 00:22] LABS: Lactic Acid 2.6 mmol/L (0.7-2.0)
[2022-10-17 00:24] LABS: INR 1.4; Prothrombin Time 16.6 Seconds (11.1-14.7)
[2022-10-17 00:25] LABS: Partial Thromboplastin Time 35.3 SECONDS (22.3-36.8)
--- NOTE | 2022-10-17 00:34 | P.OP_ITS ---
Procedure Note - Detailed Date of Procedure 10/17/22 Pre-op Diagnosis Septic shock, ischemic stercoral colitis Post-op Diagnosis Same Procedure Performed Exploratory laparotomy, sigmoid colectomy, creation of end colostomy Surgeon Minnie Perez MD Anesthesia General Indications 42-year-old male with developmental delay, autism presenting from residential with septic shock. Workup, including imaging, significant for fecal impaction with massively distended colon causing ischemic stercoral colitis Findings Massively distended sigmoid colon with evidence of ischemia, colitis Description of Procedure The patient was taken to the operating room placed in the supine position. After adequate induction of general anesthesia, the patient was prepped and draped in the normal sterile fashion. A time-out was done to verify the patient's identity, as well as the procedure being performed. Prior to the procedure being started, Anesthesia placed a arterial line as well as a central line. I then made a generous midline incision through a previous scar. This was carried down into the peritoneal cavity. Once into the peritoneal cavity, there was noted to be a massively dilated sigmoid colon. There was noted to be ischemic changes near the distal sigmoid colon, upper rectum given the amount of distention and inflammation. The proximal sigmoid colon was also very distended although not ischemic. The rest of the colon was examined and noted to be largely unremarkable, although slightly and distended. Given these findings, the decision was made to perform a sigmoid colectomy and end colostomy. I then took down the lateral attachments to the sigmoid colon along the white line of Toldt using the Bovie cautery. I then used the LigaSure to take down the mesenteric attachments to the sigmoid colon, making sure to stay close to the colon. Once to the distal sigmoid, upper rectum I was able to circumferentially get around this area. Using the echelon 60 stapler I transected this area. Of note given the massive distention, this took approximately 5 staple loads. The upper rectum looked to be viable after transection. I then transected the proximal sigmoid distal descending colon with the echelon staple load. The specimen was then sent to pathology for further review. I then made a circular incision in the left mid abdomen taking a disc of skin and subcutaneous tissue. I then open the fascia in a crucifix manner and split the rectus in the direction of its fibers. The posterior fascia was also then opened. I enlarged the incision to allow 2 finger breaths. The descending colon was then brought through this incision and prepared for colostomy creation. I then copiously irrigated the abdomen and no other pathology was noted. I then closed the fascia of the midline incision with a running looped 0 PDS suture. The skin was then closed with skin lencho. I then matured the colostomy with interrupted 2- 0 Vicryl sutures in a [place] fashion. Ostomy appliance was then placed and sterile dressing was placed on the wound. The patient tolerated the procedure relatively well and will be transferred to the ICU in critical condition. Estimated Blood Loss 50 Drains No Packing No Pathology Yes Complications No immediate complications Condition Critical Disposition ICU [facility] Billing Surgery - Charge Forward: Surgery Billing
--- NOTE | 2022-10-17 00:50 | ADMGEN ---
This patient, Ricky Swanson, was admitted to Intensive Care Unit-10. Patient/family oriented to hospital policies and general routines including ID bracelet, bed and alarms, visiting hours, pain management, procedures, bathroom and other care routines, personal items, smoking policy, room service/diet, and visiting hours. Information on how to activate the Rapid Response Team has been discussed. Patient/Family are encouraged to report perceived risks to care and to ask questions if they do not understand what they are told or what they should do.
--- NOTE | 2022-10-17 01:04 | PCRCNOTE ---
Received pt from surgery, placed on C2 vent. Settings vt 400/peep 5/rate [address] Esteban.
[2022-10-17] MEDS: LACTATED RINGERS 1,000 ML 125 ML IV CONT ×3 (01:30→18:14)
[2022-10-17] MEDS: FENTANYL 2,500MCG/NS250ML(*CRX 2,500 MCG/250 ML BAG IV CONT (01:43)
[2022-10-17] MEDS: MIDAZOLAM 100MG/NS 100ML(*CRX) 100 MG/100 ML BAG IV CONT (01:44)
[2022-10-17] MEDS: NOREPINEPHRINE 8 MG/D5W 250 ML 8 MG/250 ML BAG 9.38 MG IV CONT (02:14)
[2022-10-17 02:16] LABS: Alveolar/Arterial O2 Gradient 152.9 mmHg; Base Excess ABG -3.1 mEq/l (+/-2.0); Carboxyhemoglobin 0.6 % THb (0-2.0); Fractional Inspired Oxygen 45 %; Methemoglobin ABG 0.3 %THb (0-1.5); Oxygen Content ABG 17.2 %vol (16.0-22.0); Oxygen Saturation ABG 98.8 % (95.0-100.0); Oxyhemoglobin 97.5 % THb (90.0-100.0); PO2 ABG 133.8 mmHg (80.0-100.0); PO2 FiO2 Ratio Arterial Blood 2.97 %; Reduced Hemoglobin 1.6 %THb (0-5.0); Total Hemoglobin 12.4 g/dL (12.0-18.0); pH ABG 7.441 (7.350-7.450)
[2022-10-17 02:17] LABS: Device VENTILATOR; Modified Allen's Test Unable to perform; Site Drawn ARTLINE
[2022-10-17 02:18] LABS: Arterial Blood Gas PEEP 5 cmH2O; Arterial Blood Gas Tidal Volume 400 ml; Arterial Blood Gas Vent Mode CMV; Arterial Blood Gas Ventilator rate 18 /MIN
[2022-10-17 05:29] LABS: Base Excess ABG -0.4 mEq/l (+/-2.0); Carboxyhemoglobin 0.7 % THb (0-2.0); Fractional Inspired Oxygen 35 %; Methemoglobin ABG 0.3 %THb (0-1.5); Oxygen Content ABG 16.7 %vol (16.0-22.0); Oxygen Saturation ABG 98.5 % (95.0-100.0); Oxyhemoglobin 97.1 % THb (90.0-100.0); PCO2 ABG 29.5 mmHg (35.0-45.0); PO2 ABG 114.3 mmHg (80.0-100.0); PO2 FiO2 Ratio Arterial Blood 3.27 %; Reduced Hemoglobin 1.9 %THb (0-5.0); Total Hemoglobin 12.1 g/dL (12.0-18.0); pH ABG 7.491 (7.350-7.450)
[2022-10-17 05:30] LABS: Arterial Blood Gas PEEP 5 cmH2O; Arterial Blood Gas Tidal Volume 400 ml; Arterial Blood Gas Vent Mode CMV; Arterial Blood Gas Ventilator rate 16 /MIN; Device VENTILATOR; Modified Allen's Test Unable to perform; Site Drawn ARTLINE
[2022-10-17 05:43] LABS: Add Urine Microscopic? YES; Appearance Urine Turbid (Clear); Bilirubin Urine 1+ (Negative); Blood Urine 2+ (Negative); Color Urine Brown (Yellow); Glucose Urine UA Negative (Negative); Ketones Urine Trace mg/dL (Negative); Leukocyte Esterase Ur Negative LEU/UL (Negative); Nitrate Urine Negative (Negative); Protein Urine Trace mg/dL (Negative); Specific Grav Ur 1.025 (1.001-1.035); pH Urine 5.5 (5.0-9.0)
[2022-10-17 05:45] LABS: Hematocrit 35.8 % (42.0-52.0); Hemoglobin 11.3 g/dL (14.0-18.0); Mean Corpuscular HGB Conc 31.6 g/dl (32-36); Mean Platelet Volume 8.4 fl (7.4-10.4); Platelet Count Result 353 k/mm3 (150-375); Red Blood Count 4.71 M/mm3 (4.6-6.20); Red Cell Distribution Width 17.7 % (11.5-14.5); White Blood Count 22.1 K/mm3 (4.5-10.0)
[2022-10-17 05:47] LABS: Bacteria Urine Trace /hpf; Mucus Urine Rare /lpf; RBC Urine 21-50 /hpf (0-2); WBC Urine 0-3 /hpf
[2022-10-17 05:51] LABS: Anion Gap 12 mmol/L (8-16); Blood Urea Nitrogen 20 mg/dL (9-20); Calcium 7.4 mg/dL (8.4-10.2); Carbon Dioxide 19 mmol/L (22-30); Chloride 102 mmol/L (98-107); Estimated CRCL calculation 88 ml/min; Estimated Glomerular Filt Rate > 60; Glucose 170 mg/dL (65-110); Magnesium 2.6 mg/dL (1.6-2.3); Phosphorus 3.5 mg/dL (2.5-4.5); Potassium 3.9 mmol/L (3.4-5.0); Sodium 133 mmol/L (137-145)
[2022-10-17] MEDS: LACTATED RINGERS 1,000 ML 999 ML IV CONT (08:13)
[2022-10-17] MEDS: dexmedeTOMIDine 400 MCG/100 ML 400 MCG/100 ML BAG 5.75 MCG IV CONT (08:22)
[2022-10-17] MEDS: ENOXAPARIN 40 MG/0.4 ML SYRINGE SUB-Q (08:32)
[2022-10-17] MEDS: FAMOTIDINE 20 MG/2 ML VIAL IV PUSH ×2 (08:32→21:38)
[2022-10-17] MEDS: CALCIUM GLUC 2,000 MG/NS 100ML 2,000 MG/100 ML BAG 100 MG IVPB (08:44)
[2022-10-17] MEDS: polyethylene glycoL 3350 17 GM POWD.PACK PO (08:59)
[2022-10-17] MEDS: OSELTAMIVIR PHOSPHATE 75 MG CAPSULE PO ×2 (08:59→21:38)
[2022-10-17] MEDS: MINERAL OIL/WHITE PETROLATUM OINTMENT 1 APPLIC EACH EYE ×2 (11:22→21:38)
--- NOTE | 2022-10-17 11:23 | WPDANESPN ---
Anes - Prog Note Post-Op Date/Time: 10/17/22 11:23 Cardiovascular status: other (Tachycardic) Respiratory status: other (pt self extubated today, 6L NC SpO2 100%) Airway patency: other (6L NC) Mental status: other (sedated on Precedex infusion) Post-Op hydration status: other (management per ICU team) Vital Signs: Last Vital Signs Temp 37.1 C 10/17/22 06:00 Pulse 119 H 10/17/22 10:00 Resp 16 10/17/22 10:00 BP 124/75 10/17/22 10:00 Pulse Ox 99 10/17/22 10:00 O2 Del Method Mechanical Ventilation 10/17/22 08:25 FiO2 50 10/17/22 08:25 Pain Score (VAS): 12/03, sedated I/O: Intake & Output 10/16/22 10/17/22 10/17/22 23:59 07:59 15:59 Intake Total 2150 50 1150 Output Total 550 Balance 2150 -500 1150 Laboratory Tests 10/17/22 05:23 10/17/22 05:23 10/16/22 10/16/22 10/16/22 18:44 19:09 19:09 WBC 37.1 H RBC 6.34 H Hgb 15.3 Hct 52.0 MCV 82.0 MCH 24.1 L MCHC 29.4 L RDW 19.7 H Plt Count 456 H MPV 8.6 Immature Gran % (Auto) Not Reportable Neut % (Auto) Not Reportable Lymph % (Auto) Not Reportable [place] % (Auto) Not Reportable Eos % (Auto) Not Reportable Baso % (Auto) Not Reportable Lymph # (Auto) Not Reportable [place] # (Auto) Not Reportable Eos # (Auto) Not Reportable Baso # (Auto) Not Reportable Abs Immat Gran (auto) Not Reportable Absolute Neuts (auto) Not Reportable Absolute Nucleated RBC Not Reportable Total Counted 100 Neutrophils % (Manual) 73 Band Neutrophils % 15 H Lymphocytes % (Manual) 7.0 L Monocytes % (Manual) 5 Nucleated RBC % Not Reportable Abs Neuts (Manual) 32.64 H Abs Lymphs (Manual) 2.59 Abs Monocytes (Manual) 1.85 H Platelet Estimate Increased Hypochromasia 1+ Anisocytosis 2+ Schistocytes None seen PT INR APTT Puncture Site ABG pH ABG pCO2 ABG pO2 ABG PO2/FiO2 Ratio ABG HCO3 ABG O2 Saturation ABG O2 Content ABG Base Excess A-a Gradient Oxyhemoglobin Carboxyhemoglobin Methemoglobin Reduced Hemoglobin Total Hemoglobin O2 Delivery Device O2 Liters/Min Minute Volume Vent Rate Vent Mode FiO2 Tidal Volume PEEP Peak Inspir Pressure Pressure Support Sodium Potassium Chloride Carbon Dioxide Anion Gap BUN Creatinine Estim Creat Clear Calc Estimated GFR Glucose Lactic Acid 5.1 H* Calcium Phosphorus Magnesium Total Bilirubin AST ALT Alkaline Phosphatase Total Protein Albumin Lipase Urine Color Urine Appearance Urine pH Ur Specific [place] Urine Protein Urine Glucose (UA) Urine Ketones Ur Blood (Man) Urine Nitrate Urine Bilirubin Urine Urobilinogen Leukocyte Esterase Rfl Urine RBC Urine WBC Urine Bacteria Hyaline Casts Urine Mucus Influenza A (RT-PCR) Positive Influenza B (RT-PCR) Negative SARS-CoV-2 RNA (RT-PCR) Negative Blood Type Antibody Screen 10/16/22 10/16/22 10/16/22 21:37 23:48 23:48 WBC RBC Hgb Hct MCV MCH MCHC RDW Plt Count MPV Immature Gran % (Auto) Neut % (Auto) Lymph % (Auto) [place] % (Auto) Eos % (Auto) Baso % (Auto) Lymph # (Auto) [place] # (Auto) Eos # (Auto) Baso # (Auto) Abs Immat Gran (auto) Absolute Neuts (auto) Absolute Nucleated RBC Total Counted Neutrophils % (Manual) Band Neutrophils % Lymphocytes % (Manual) Monocytes % (Manual) Nucleated RBC % Abs Neuts (Manual) Abs Lymphs (Manual) Abs Monocytes (Manual) Platelet Estimate Hypochromasia Anisocytosis Schistocytes PT 16.6 H INR 1.4 APTT 35.3 Puncture Site ABG pH ABG pCO2 ABG pO2 ABG PO2/FiO2 Ratio ABG HCO3 ABG O2 Saturation ABG O2 Content ABG Base Excess A-a Gradie
--- NOTE | 2022-10-17 11:24 | WPDCNINT ---
Assessment and Plan Assessment and plan (1) Stercoral colitis: Code(s): K52.89 - Other specified noninfective gastroenteritis and colitis Status: Acute Assessment and Plan: Ischemic stercoral colitis secondary to chronic constipation and dilation of sigmoid colon Now status post Exploratory laparotomy, sigmoid colectomy, creation of end colostomy Management per General surgery Dr. Thompson has evaluated and examined the colostomy today Pain control MiraLax and Dulcolax for chronic constipation (2) Septic shock: Code(s): A41.9 - Sepsis, unspecified organism; R65.21 - Severe sepsis with septic shock Status: Acute Assessment and Plan: Secondary to ischemic colitis Patient received 3 L of IV fluid bolus on admission and on LR Will give additional 1 L bolus this morning as patient is still fairly tachycardic which could be from pain Check lactic acid level Continue Zosyn Cultures are pending (3) Acute respiratory failure: Code(s): J96.00 - Acute respiratory failure, unspecified whether with hypoxia or hypercapnia Status: Acute Assessment and Plan: Patient was intubated and placed on mechanical ventilation for general anesthesia Chest x-ray ABG and vent settings were reviewed this morning I placed patient on PSV SBT weaning trial but patient became apneic hence he was placed back on CMV. Sedation was discontinued and patient was started on Precedex for anxiety lytic defect as patient is nonverbal with severe autism understand staff and directions. Patient eventually woke up and self-extubated himself. No stridor on exam patient maintaining his saturation with nasal cannula. I will continue to monitor closely and I hope the patient will stay off the ventilator and will not require intubation. Continue NPO (4) Influenza A: Code(s): J10.1 - Influenza due to other identified influenza virus with other respiratory manifestations Status: Acute Assessment and Plan: Patient tested positive for influenza A. Not sure if it is symptomatic as patient is unable to provide history Will start five-day course of Tamiflu Plan DVT prophylaxis -Lovenox Stress ulcer prophylaxis -Pepcid Nutrition -NPO Code Status - Full Code Total Critical Care Time - 35 minutes Due to a high probability of clinically significant, life threatening deterioration, the patient required my highest level of preparedness to intervene emergently and I personally spent this critical care time directly and personally managing the patient. This critical care time included obtaining a history; examining the patient; pulse oximetry; ordering and review of studies; arranging urgent treatment with development of a management plan; evaluation of patient's response to treatment; frequent reassessment; and discussions with other providers. It was exclusive of separately billable procedures and treating other patients and teaching time. Please see Assessment and Plan section and the rest of the note for further information on patient assessment and treatment Disease Case Manager Rn Consult Note Consult date: 10/17/22 Reason for consult: Acute respiratory failure, sepsis HPI: Ricky Swanson is a 42 year old male with past medical history of constipation, developmental delay, autism, non-verbal who is a resident of [facility] presented to ER with chief complaint of N/V, abd pain/distention over last wk.? CT scan of the abdomen showed Marked fecal impaction of the sigmoid and rectum, with CT findings concerning for stercoral colitis. Patient had elevated WBC count and lactic acid level suggesting ischemic colitis. Patient was uncooperative and would not follow commands. He was unable to provide any meaningful history Was emergently taken to operating room where he underwent central venous catheter and arterial line placement. Patient underwent Exploratory laparotomy, sigmoid colectomy, creation of end colostomy. Postop patient was ad
--- NOTE | 2022-10-17 11:25 | PC.NURSE ---
Pt self extubated. Pt oxygenated via bag mask and SPO2 around 98%. RT, primary RN, and MD at bedside. Pt placed on NC at 6L and maintained saturations. Pt agitated and per MD increase Precedex to 0.7. Artline discontinued per order. pressure held for 5 mins, and pressure dressing applied to site. RT titrated oxygen down to 4L NC and pt remaining at 97%.
--- NOTE | 2022-10-17 11:30 | PCRCNOTE ---
pt self extubated around 10:45 AM, currently on 4L nasal cannula
--- NOTE | 2022-10-17 12:19 | PM.PNGS ---
Progress Note: A&P Assessment and Plan (1) Stercoral colitis: Code(s): K52.89 - Other specified noninfective gastroenteritis and colitis Status: Acute Assessment and Plan: s/p sigmoid colectomy, end colostomy, labs and vitals improved, cont to await ostomy fxn, cont abx (2) Septic shock: Code(s): A41.9 - Sepsis, unspecified organism; R65.21 - Severe sepsis with septic shock Status: Acute Assessment and Plan: improved, cont abx Subjective Subjective Date/Time Seen: 10/17/22 12:19 self extubated this am Review of Systems Review of Systems: ROS unobtainable: Yes unobtainable due to medical condition and unobtainable due to mental status Exam Const: General: ill appearing and uncomfortable Resp: Auscultation: diminished lung sounds Cardio: Rate: tachycardic Rhythm: regular rhythm GI: Inspection: normal to inspection, distended and incision GI Palp: Yes abdominal tenderness, Yes Soft to palpation, Yes Tenderness to palpation present (GI), No Guarding due to palpation present (GI) and No Rigid due to palpation Other: ostomy - pink/viable Objective Data Vital Signs Vital Signs: Vital Signs - 24 hr 10/16/22 18:36 10/16/22 19:11 10/16/22 20:07 Temperature 37.5 C Pulse Rate 138 H 149 H 147 H Respiratory Rate 24 H 20 19 Blood Pressure 97/65 L 105/78 Pulse Oximetry 98 99 Oxygen Delivery Room Air Fraction of Inspired Oxygen 10/16/22 20:30 10/16/22 21:00 10/16/22 21:35 Temperature Pulse Rate 135 H 130 H 124 H Respiratory Rate 18 17 22 H Blood Pressure 105/67 99/67 L 111/74 Pulse Oximetry 94 97 97 Oxygen Delivery Fraction of Inspired Oxygen 10/16/22 21:45 10/17/22 01:00 10/17/22 01:34 Temperature 36.3 C L Pulse Rate 119 H 102 H 98 Respiratory Rate 14 18 Blood Pressure 97/53 L 85/71 L Pulse Oximetry 99 99 100 Oxygen Delivery Mechanical Ventilation Fraction of Inspired Oxygen 50 10/17/22 01:38 10/17/22 01:38 10/17/22 01:43 Temperature Pulse Rate 98 98 98 Respiratory Rate 18 18 Blood Pressure 135/81 Pulse Oximetry 100 Oxygen Delivery Fraction of Inspired Oxygen 10/17/22 01:44 10/17/22 02:12 10/17/22 02:14 Temperature 36.3 C L Pulse Rate 98 97 98 Respiratory Rate 18 18 Blood Pressure 119/74 82/71 L Pulse Oximetry 100 Oxygen Delivery Fraction of Inspired Oxygen 10/17/22 02:15 10/17/22 02:15 10/17/22 02:04 Temperature Pulse Rate 98 98 98 Respiratory Rate 20 Blood Pressure 122/76 Pulse Oximetry 100 Oxygen Delivery Mechanical Ventilation Fraction of Inspired Oxygen 50 10/17/22 04:00 10/17/22 04:00 10/17/22 04:00 Temperature Pulse Rate 113 H 115 H Respiratory Rate 18 Blood Pressure Pulse Oximetry Oxygen Delivery Mechanical Ventilation Fraction of Inspired Oxygen 35 35 10/17/22 04:00 10/17/22 05:14 10/17/22 06:00 Temperature 36.7 C Pulse Rate 115 H 119 H 123 H Respiratory Rate 18 Blood Pressure 94/58 L Pulse Oximetry 100 100 Oxygen Delivery Mechanical Ventilation Fraction of Inspired Oxygen 50 10/17/22 06:00 10/17/22 06:14 10/17/22 08:22 Temperature 37.1 C Pulse Rate 122 H 125 H 129 H Respiratory Rate 16 16 Blood Pressure 127/78 127/77 Pulse Oximetry 100 Oxygen Delivery Fraction of Inspired Oxygen 10/17/22 08:25 10/17/22 09:11 10/17/22 09:11 Temperature Pulse Rate 128 H 126 H 123 H Respiratory Rate 16 16 Blood Pressure Pulse Oximetry 98 Oxygen Delivery Mechanical Ventilation Fraction of Inspired Oxygen 50 10/17/22 08:00 10/17/22 08:00 10/17/22 09:22 Temperature Pulse Rate 123 H 123 H Respiratory Rate 16 16 Blood Pressure Pulse Oximetry 98 Oxygen Delivery Mechanical Ventilation Fraction of Inspired Oxygen 50 50 10/17/22 08:00 10/17/22 08:00 10/17/22 10:00 Temperature Pulse Rate 128 H 128 H 119 H Respiratory Rate 16 16 Blood Pressure 114/87 124/75 Pulse Oxime
[2022-10-17] MEDS: MORPHINE SULFATE (*CRX) 2 MG/ML INJ IV PUSH ×2 (13:31→18:17)
[2022-10-17] MEDS: ACETAMINOPHEN ELIXIR 325 MG/10.15 ML UDC 650 MG PO (15:51)
[2022-10-18] VITALS (21 sets, daily range): BP systolic 92–122; BP diastolic 60–77; PULSE 94–128; RESP 13–20; TEMP 36.8–38.3; O2SAT 92–100; BMI 14.5
[2022-10-18] MEDS: dexmedeTOMIDine 400 MCG/100 ML 400 MCG/100 ML BAG 5.75 MCG IV CONT (00:41)
[2022-10-18] MEDS: MORPHINE SULFATE (*CRX) 4 MG/ML INJ IV PUSH ×4 (02:36→22:34)
[2022-10-18] MEDS: LACTATED RINGERS 1,000 ML 125 ML IV CONT (02:43)
[2022-10-18 05:12] LABS: Hematocrit 28.3 % (42.0-52.0); Hemoglobin 8.6 g/dL (14.0-18.0); Mean Corpuscular HGB Conc 30.4 g/dl (32-36); Mean Corpuscular Hemoglobin 23.6 pg (26-34); Mean Corpuscular Volume 77.7 fl (80-100); Mean Platelet Volume 9.4 fl (7.4-10.4); Platelet Count Result 235 k/mm3 (150-375); Red Blood Count 3.64 M/mm3 (4.6-6.20); Red Cell Distribution Width 17.4 % (11.5-14.5); White Blood Count 19.3 K/mm3 (4.5-10.0)
[2022-10-18 05:14] LABS: Alanine Aminotransferase 25 U/L (6-50); Albumin Level 2.6 g/dL (3.5-5.1); Alkaline Phosphatase 72 U/L (38-126); Anion Gap 4 mmol/L (8-16); Aspartate Amino Transferase 41 U/L (17-59); Blood Urea Nitrogen 10 mg/dL (9-20); Calcium 7.4 mg/dL (8.4-10.2); Carbon Dioxide 28 mmol/L (22-30); Chloride 102 mmol/L (98-107); Estimated CRCL calculation 67 ml/min; Estimated Glomerular Filt Rate > 60; Glucose 108 mg/dL (65-110); Phosphorus 2.9 mg/dL (2.5-4.5); Potassium 3.8 mmol/L (3.4-5.0); Sodium 134 mmol/L (137-145)
[2022-10-18 06:41] LABS: Band Neutrophils Percent 7 % (0-6); Lymphocytes Absolute Manual 1.54 K/mm3 (1.1-4.5); Monocytes Absolute Manual 1.15 K/mm3 (0.1-0.90); Monocytes Percent Manual 6 % (3-9); Neutrophils Absolute Manual 16.59 K/mm3 (1.3-6.7); Neutrophils Percent Manual 79 % (46-73); Platelet Estimate Adequate (Adequate); Schistocytes None Seen (NORMAL); Total Cells Counted 100
[2022-10-18] MEDS: ACETAMINOPHEN ELIXIR 325 MG/10.15 ML UDC 650 MG PO ×2 (08:48→15:34)
[2022-10-18] MEDS: KCL 20 MEQ/D5/0.45% SOD CHL 1,000 ML 75 ML IV CONT ×2 (08:48→21:42)
[2022-10-18] MEDS: FAMOTIDINE 20 MG/2 ML VIAL IV PUSH ×2 (08:50→21:36)
[2022-10-18] MEDS: OSELTAMIVIR PHOSPHATE 75 MG CAPSULE PO ×2 (08:50→21:39)
[2022-10-18] MEDS: ENOXAPARIN 40 MG/0.4 ML SYRINGE SUB-Q (08:50)
[2022-10-18] MEDS: polyethylene glycoL 3350 17 GM POWD.PACK PO (08:52)
[2022-10-18] MEDS: MORPHINE SULFATE (*CRX) 2 MG/ML INJ IV PUSH (09:22)
--- NOTE | 2022-10-18 09:39 | WPDINTPN ---
Progress Note: A&P Assessment and Plan (1) Stercoral colitis: Code(s): K52.89 - Other specified noninfective gastroenteritis and colitis Status: Acute Assessment and Plan: Ischemic stercoral colitis secondary to chronic constipation and dilation of sigmoid colon Now status post Exploratory laparotomy, sigmoid colectomy, creation of end colostomy Minimal serosanguineous liquid output from ostomy and ostomy appears slightly prolapse. -Management per General surgery Pain control MiraLax and Dulcolax for chronic constipation (2) Septic shock: Code(s): A41.9 - Sepsis, unspecified organism; R65.21 - Severe sepsis with septic shock Status: Acute Assessment and Plan: Secondary to ischemic colitis Patient received 3 L of IV fluid bolus on admission and was on LR. He was given additional fluid bolus in the ICU Continue Zosyn Cultures are negative for now Continue but decrease IV fluids (3) Acute respiratory failure: Code(s): J96.00 - Acute respiratory failure, unspecified whether with hypoxia or hypercapnia Status: Acute Assessment and Plan: Patient was intubated and placed on mechanical ventilation for general anesthesia 10/17 extubated Maintaining oxygenation on nasal cannula Monitor Patient will not be able to do incentive spirometry (4) Influenza A: Code(s): J10.1 - Influenza due to other identified influenza virus with other respiratory manifestations Status: Acute Assessment and Plan: Patient tested positive for influenza A. Not sure if it is symptomatic as patient is unable to provide history Continue five-day course of Tamiflu Plan DVT prophylaxis -Lovenox Stress ulcer prophylaxis -Pepcid Nutrition -NPO. Diet per General surgery Code Status - Full Code Transfer out of ICU today Subjective Date/time seen: 10/18/22 Patient extubated yesterday. Overnight events reviewed. Hemodynamically stable. Adequate urine output. Afebrile Minimal output from ostomy Patient is unable to provide any meaningful history. He just nodes his head to every question, is nonverbal, does not follow directions or commands and tries to resist exam Review of Systems Review of Systems: ROS unobtainable: Yes unobtainable due to medical condition Exam Narrative: General: Pt is awake and in NAD. Nonverbal Lungs/Chest: Trachea central Clear BS B/L, No crackles or wheezing. Cardiac: RRR. Normal S1 S2. No murmurs Circulation: Feet are warm : Cardona in place Neurologic: Patient is awake, moves all 4 extremity, does not answer any question or follow any commands, resists exam PERRL Skin: No Rash Abdomen: Decreased but bowel sounds. Will left lower quadrant colostomy with serosanguineous watery output. Soft. Mild diffuse tenderness to palpation, mildly distended Extremities: No clubbing, cyanosis or edema. Warm right IJ central venous catheter Objective Data Vital Signs Vital Signs: Vital Signs - 24 hr 10/17/22 10:00 10/17/22 10:00 10/17/22 11:00 Temperature Pulse Rate 119 H 119 H 116 H Respiratory Rate 16 16 Blood Pressure 124/75 Pulse Oximetry 99 Oxygen Delivery Oxygen Flow Rate 10/17/22 12:00 10/17/22 12:00 10/17/22 12:00 Temperature 36.7 C Pulse Rate 112 H 111 H 112 H Respiratory Rate 13 16 Blood Pressure 99/67 L Pulse Oximetry 97 99 Oxygen Delivery Nasal Cannula Oxygen Flow Rate 4 10/17/22 13:44 10/17/22 14:00 10/17/22 14:00 Temperature 37.7 C H Pulse Rate 108 H 110 H 110 H Respiratory Rate 17 19 Blood Pressure 97/73 L Pulse Oximetry 98 Oxygen Delivery Oxygen Flow Rate 10/17/22 14:52 10/17/22 15:38 10/17/22 15:51 Temperature 37.7 C H Pulse Rate 107 H 106 H Respiratory Rate 16 16 Blood Pressure Pulse Oximetry 97 Oxygen Delivery Nasal Cannula Oxygen Flow Rate 4 10/17/22 16:00 10/17/22 16:00 10/17/22 18:00 Temperature Pulse Rate 105 H 105 H 97 Respiratory Rate
--- NOTE | 2022-10-18 11:58 | PM.PNGS ---
Progress Note: A&P Assessment and Plan (1) Stercoral colitis: Code(s): K52.89 - Other specified noninfective gastroenteritis and colitis Status: Acute Assessment and Plan: slowly improving, await ostomy fxn, cont abx, ok to transfer to IMU Subjective Subjective Date/Time Seen: 10/18/22 11:58 extubated yesterday, no acute issues Review of Systems Review of Systems: ROS unobtainable: Yes unobtainable due to mental status Exam Const: General: cooperative, comfortable and no acute distress Resp: Auscultation: clear to auscultation bilaterally Cardio: Rate: tachycardic Rhythm: regular rhythm GI: Inspection: normal to inspection, distended and incision GI Palp: Yes abdominal tenderness, Yes Soft to palpation, Yes Tenderness to palpation present (GI), No Guarding due to palpation present (GI) and No Rigid due to palpation Other: ostomy - pink, viable Objective Data Vital Signs Vital Signs: Vital Signs - 24 hr 10/17/22 12:00 10/17/22 12:00 10/17/22 12:00 Temperature 36.7 C Pulse Rate 112 H 111 H 112 H Respiratory Rate 13 16 Blood Pressure 99/67 L Pulse Oximetry 97 99 Oxygen Delivery Nasal Cannula Oxygen Flow Rate 4 10/17/22 13:44 10/17/22 14:00 10/17/22 14:00 Temperature 37.7 C H Pulse Rate 108 H 110 H 110 H Respiratory Rate 17 19 Blood Pressure 97/73 L Pulse Oximetry 98 Oxygen Delivery Oxygen Flow Rate 10/17/22 14:52 10/17/22 15:38 10/17/22 15:51 Temperature 37.7 C H Pulse Rate 107 H 106 H Respiratory Rate 16 16 Blood Pressure Pulse Oximetry 97 Oxygen Delivery Nasal Cannula Oxygen Flow Rate 4 10/17/22 16:00 10/17/22 16:00 10/17/22 18:00 Temperature Pulse Rate 105 H 105 H 97 Respiratory Rate 17 Blood Pressure 99/62 L Pulse Oximetry 98 Oxygen Delivery Oxygen Flow Rate 10/17/22 18:00 10/17/22 18:30 10/17/22 18:50 Temperature 36.7 C Pulse Rate 97 93 Respiratory Rate 14 13 Blood Pressure 106/63 Pulse Oximetry 100 97 Oxygen Delivery Nasal Cannula Oxygen Flow Rate 3 10/17/22 20:00 10/17/22 20:00 10/17/22 20:00 Temperature 36.9 C Pulse Rate 93 93 101 H Respiratory Rate 13 14 Blood Pressure 97/70 L Pulse Oximetry 97 93 Oxygen Delivery Nasal Cannula Oxygen Flow Rate 3 10/17/22 22:00 10/17/22 22:00 10/17/22 23:52 Temperature 37.6 C Pulse Rate 97 99 101 H Respiratory Rate 13 Blood Pressure 92/63 L Pulse Oximetry 94 Oxygen Delivery Oxygen Flow Rate 10/18/22 00:00 10/18/22 00:00 10/18/22 00:41 Temperature 37.0 C Pulse Rate 101 H 98 97 Respiratory Rate 13 14 13 Blood Pressure 105/74 Pulse Oximetry 94 96 Oxygen Delivery Nasal Cannula Oxygen Flow Rate 3 10/18/22 02:00 10/18/22 02:00 10/18/22 03:51 Temperature Pulse Rate 97 99 99 Respiratory Rate 14 Blood Pressure 100/74 Pulse Oximetry 94 Oxygen Delivery Oxygen Flow Rate 10/18/22 03:54 10/18/22 03:57 10/18/22 06:00 Temperature 36.8 C Pulse Rate 99 94 105 H Respiratory Rate 14 14 Blood Pressure 102/68 Pulse Oximetry 96 96 Oxygen Delivery Nasal Cannula Oxygen Flow Rate 3 10/18/22 06:00 10/18/22 08:00 10/18/22 08:00 Temperature 37.2 C 37.0 C Pulse Rate 105 H 105 H 113 H Respiratory Rate 20 20 14 Blood Pressure 102/72 112/69 Pulse Oximetry 99 99 97 Oxygen Delivery Nasal Cannula Oxygen Flow Rate 3 Intake/Output Intake/Output: Intake & Output 10/15/22 10/16/22 10/17/22 10/18/22 23:59 23:59 23:59 23:59 Intake Total 2150 3300 1200 Output Total 1750 1550 Balance 2150 1550 -350 Meds/Results Medications: Active Medications Generic Name Dose Route Start Last Admin Trade Name Freq PRN Reason Stop Dose Admin Acetaminophen 650 mg 10/17/22 15:36 10/18/22 08:48 Acetaminophen Elixir 325 Mg/10.15 Ml Udc PO 650 mg Q4H PRN Administration Mild Pain (1-3) or Fever Bisacodyl 5 mg 10/17/22 07:31 Bisacodyl 5 Mg Tablet Ec
[2022-10-18 13:46] LABS: Hematocrit 29.7 % (42.0-52.0)
[2022-10-18] MEDS: ONDANSETRON INJ 4 MG/2 ML VIAL IV PUSH (15:38)
[2022-10-18] MEDS: LACTATED RINGERS 500 ML 999 ML IV CONT (16:34)
[2022-10-18 17:45] LABS: Hematocrit 29.7 % (42.0-52.0); Hemoglobin 8.8 g/dL (14.0-18.0)
--- NOTE | 2022-10-18 18:03 | PC.NURSE ---
Multiple attempts by this nurse during this shift to off mouth care/ice chips. Patient refused, turned face away from nurse, would not open mouth.
--- NOTE | 2022-10-18 19:45 | PC.NURSE ---
Attempted to change ostomy device, per wound nurse instructions, but I was unable to change device. The two-piece devise was not wide enough to adequately fit the stoma site. The initial, one-piece device was left in place. Reported this to oncoming RN.
[2022-10-18] MEDS: MINERAL OIL/WHITE PETROLATUM OINTMENT 1 APPLIC EACH EYE (21:39)
[2022-10-19] VITALS (90 sets, daily range): BP systolic 63–125; BP diastolic 50–86; PULSE 83–146; RESP 16–42; TEMP 36.5–38.9; O2SAT 86–100
--- NOTE | 2022-10-19 00:33 | PC.NURSE ---
10/18/22 at 2200. While I was in another patient's room, sitter notified me that patient had pulled out his NG tube despite having restraints in place. The restraints had been assessed when I made my initial rounds. Attempted to replace a new NG tube, but patient is very strong and combative, thrashing in the bed. Morphine 4mg IV given for sedation. NG was again attempted with the assist of 2 RNs and a tech. Successfully placed through left nare. Taped at 60cm. Placement verified by auscultation and aspiration. KUB of the abdomen obtained, and the report shows the tip to be in the stomach.
[2022-10-19] MEDS: MORPHINE SULFATE (*CRX) 4 MG/ML INJ IV PUSH (02:57)
[2022-10-19 05:47] LABS: Hemoglobin 8.6 g/dL (14.0-18.0); Mean Corpuscular HGB Conc 29.7 g/dl (32-36); Mean Corpuscular Hemoglobin 23.8 pg (26-34); Mean Corpuscular Volume 80.3 fl (80-100); Platelet Count Result 237 k/mm3 (150-375); Red Blood Count 3.61 M/mm3 (4.6-6.20); Red Cell Distribution Width 17.4 % (11.5-14.5); White Blood Count 21.3 K/mm3 (4.5-10.0)
[2022-10-19 06:00] LABS: Alanine Aminotransferase 26 U/L (6-50); Alkaline Phosphatase 90 U/L (38-126); Anion Gap 5 mmol/L (8-16); Aspartate Amino Transferase 42 U/L (17-59); Blood Urea Nitrogen 5 mg/dL (9-20); Calcium 7.5 mg/dL (8.4-10.2); Carbon Dioxide 31 mmol/L (22-30); Chloride 100 mmol/L (98-107); Estimated CRCL calculation 88 ml/min; Estimated Glomerular Filt Rate > 60; Glucose 126 mg/dL (65-110); Phosphorus 2.6 mg/dL (2.5-4.5); Potassium 3.5 mmol/L (3.4-5.0); Sodium 136 mmol/L (137-145)
[2022-10-19] MEDS: FENTANYL 2,500MCG/NS250ML(*CRX 2,500 MCG/250 ML BAG IV CONT (09:10)
[2022-10-19] MEDS: ETOMIDATE 20 MG/10 ML AMPUL IV PUSH (09:32)
[2022-10-19] MEDS: SUCCINYLCHOLINE CHLORIDE 20 MG/ML 10 ML VIAL 99.8 MG IV PUSH (09:32)
[2022-10-19] MEDS: LORazepam INJ (*CRX) 2 MG/ML VIAL IV PUSH (09:33)
[2022-10-19] MEDS: dexmedeTOMIDine 400 MCG/100 ML 400 MCG/100 ML BAG 6.24 MCG IV CONT (09:33)
[2022-10-19] MEDS: MIDAZOLAM HCL (*CRX) 2 MG/2 ML VIAL 4 MG IV PUSH (09:34)
--- NOTE | 2022-10-19 09:35 | WPDINTPN ---
Progress Note: A&P Assessment and Plan (1) Acute respiratory failure: Code(s): J96.00 - Acute respiratory failure, unspecified whether with hypoxia or hypercapnia Status: Acute Assessment and Plan: Patient was intubated and placed on mechanical ventilation for general anesthesia 10/17 extubated 10/18 downgraded to step-down unit, CPT was ordered 10/19 Increased oxygen requirement overnight. Hypoxic this morning. Patient has been pulling off his oxygen repeatedly bite restrained. He also pulled NG tube out. He has not been clearing his secretions. He resists any attempts to suction him. On my arrival patient was hypoxic with low saturation. Despite placement of Airvo, sats remain low. Secretions could be easily heard in his upper airway. Patient clench his teeth whenever we try to suction him. Decreased air movement throughout lungs on exam. Patient was given some sedatives which did allow suction was oral airway but his saturations remained low. Patient is full code and decision was made to intubate patient at this time to protect his airway and treat his hypoxia Patient was reintubated. She chest x-ray shows ET tube in acceptable position with right lung atelectasis and infiltrate which could have progress to pneumonia Patient placed on CMV 350 tidal volume 16 rate 10 of PEEP 100% FiO2 Check ABG Continue Zosyn which should cover for any aspiration (2) Stercoral colitis: Code(s): K52.89 - Other specified noninfective gastroenteritis and colitis Status: Acute Assessment and Plan: Ischemic stercoral colitis secondary to chronic constipation and dilation of sigmoid colon Now status post Exploratory laparotomy, sigmoid colectomy, creation of end colostomy Minimal serosanguineous liquid output from ostomy and ostomy appears slightly prolapse. -Management per General surgery Pain control MiraLax and Dulcolax for chronic constipation Will start tube feeds if okay with General surgery (3) Septic shock: Code(s): A41.9 - Sepsis, unspecified organism; R65.21 - Severe sepsis with septic shock Status: Acute Assessment and Plan: Secondary to ischemic colitis Patient received 3 L of IV fluid bolus on admission and was on LR. He was given additional fluid bolus in the ICU Continue Zosyn Cultures are negative for now Hold IV fluids (4) Influenza A: Code(s): J10.1 - Influenza due to other identified influenza virus with other respiratory manifestations Status: Acute Assessment and Plan: Patient tested positive for influenza A. Not sure if it is symptomatic as patient is unable to provide history Continue five-day course of Tamiflu Plan DVT prophylaxis -Lovenox Stress ulcer prophylaxis -Pepcid Nutrition -NPO. Diet per General surgery Code Status - Full Code I spoke to patient's sister Samia by phone and updated her with patient's current status including re-intubation from worsening respiratory failure and current treatment. I answered all her questions Total Critical Care Time - 35 minutes Due to a high probability of clinically significant, life threatening deterioration, the patient required my highest level of preparedness to intervene emergently and I personally spent this critical care time directly and personally managing the patient. This critical care time included obtaining a history; examining the patient; pulse oximetry; ordering and review of studies; arranging urgent treatment with development of a management plan; evaluation of patient's response to treatment; frequent reassessment; and discussions with other providers. It was exclusive of separately billable procedures and treating other patients and teaching time. Please see Assessment and Plan section and the rest of the note for further information on patient assessment and treatment Subjective Date/time seen: 10/19/22 Patient was downgraded to step-down unit yesterday. Increased oxygen requi
[2022-10-19] MEDS: fentaNYL CITRATE INJ (*CRX) 100 MCG/2 ML VIAL 50 MCG IV PUSH (09:36)
--- NOTE | 2022-10-19 09:49 | WPDPROCEDUR ---
Procedures Intubation Intubation Date: 10/19/22 Intubation Time: 09:00 Consent: Patient was full code, he is unable to provide any consent as he is disabled and nonverbal. Procedure was done as medical necessity A pre-procedural Time-Out was completed immediately before starting the procedure and confirmed: Patient Identification, Site, Procedure, Patient Position and the Availability of Requisite Equipment: Yes Sedative: etomidate Mg given: 20 Paralytic: succinylcholine Mg given: 100 Laryngoscope: fiber optic video scope Assist device used: fiber optic device ET tube size: cuffed Tube secured depth (cm): 23 Tube secured location: lips Tube placement confirmation: visualized tube passing through cords, equal breath sounds bilaterally, no breath sounds over epigastrium and confirmation by capnometry Patient tolerated procedure: well Intubation complications: hypoxia Additional comments: Chest x-ray reviewed. ET tube in good position
[2022-10-19] MEDS: MINERAL OIL/WHITE PETROLATUM OINTMENT 1 APPLIC EACH EYE ×2 (10:02→20:20)
[2022-10-19] MEDS: OSELTAMIVIR PHOSPHATE 75 MG CAPSULE PO ×2 (10:02→20:21)
[2022-10-19] MEDS: ENOXAPARIN 40 MG/0.4 ML SYRINGE SUB-Q (10:03)
[2022-10-19] MEDS: FAMOTIDINE 20 MG/2 ML VIAL IV PUSH ×2 (10:03→20:20)
[2022-10-19] MEDS: polyethylene glycoL 3350 17 GM POWD.PACK PO (10:15)
[2022-10-19 10:29] LABS: Alveolar/Arterial O2 Gradient 566.2 mmHg; Base Excess ABG 2.5 mEq/l (+/-2.0); Fractional Inspired Oxygen 100 %; HCO3 ABG 27.6 mEq/l (22.0-26.0); Oxygen Content ABG 14.7 %vol (16.0-22.0); Oxygen Saturation ABG 97.7 % (95.0-100.0); Oxyhemoglobin 96.7 % THb (90.0-100.0); PCO2 ABG 44.7 mmHg (35.0-45.0); PO2 ABG 102.1 mmHg (80.0-100.0); PO2 FiO2 Ratio Arterial Blood 1.02 %; Total Hemoglobin 10.7 g/dL (12.0-18.0); pH ABG 7.408 (7.350-7.450)
[2022-10-19 10:31] LABS: Device VENTILATOR; Site Drawn LEFT BRACHIAL
[2022-10-19 10:32] LABS: Arterial Blood Gas PEEP 10 cmH2O; Arterial Blood Gas Pressure Support 0 cmH2O; Arterial Blood Gas Tidal Volume 350 ml; Arterial Blood Gas Vent Mode CMV; Arterial Blood Gas Ventilator rate 16 /MIN
[2022-10-19] MEDS: LACTATED RINGERS 1,000 ML 999 ML IV CONT (11:51)
--- NOTE | 2022-10-19 11:58 | PM.PNGS ---
Progress Note: A&P Assessment and Plan (1) Stercoral colitis: Code(s): K52.89 - Other specified noninfective gastroenteritis and colitis Status: Acute Assessment and Plan: await GI fxn, will start trophic feeds thru NG (2) Acute respiratory failure: Code(s): J96.00 - Acute respiratory failure, unspecified whether with hypoxia or hypercapnia Status: Acute Assessment and Plan: reintubated, mgmt per knuckle bender Subjective Subjective Date/Time Seen: 10/19/22 11:58 events noted, now intubated, sedated Review of Systems Review of Systems: ROS unobtainable: Yes unobtainable due to endotracheal tube, unobtainable due to medical condition and unobtainable due to mental status Exam Const: General: ill appearing Resp: Auscultation: diminished lung sounds Cardio: Rate: regular rate Rhythm: regular rhythm GI: Inspection: normal to inspection, distended and incision GI Palp: Yes abdominal tenderness, Yes Soft to palpation, Yes Tenderness to palpation present (GI), No Guarding due to palpation present (GI) and No Rigid due to palpation Other: ostomy - pink/viable, little output Objective Data Vital Signs Vital Signs: Vital Signs - 24 hr 10/18/22 12:00 10/18/22 14:00 10/18/22 14:00 Temperature 37.0 C Pulse Rate 114 H 116 H 117 H Respiratory Rate 15 Blood Pressure 112/72 Pulse Oximetry 98 Oxygen Delivery Oxygen Flow Rate Fraction of Inspired Oxygen 10/18/22 14:37 10/18/22 17:28 10/18/22 17:00 Temperature 38.3 C H Pulse Rate 117 H 124 H Respiratory Rate 15 16 Blood Pressure 118/76 Pulse Oximetry 98 99 99 Oxygen Delivery High Flow Nasal Cannula Nasal Cannula Oxygen Flow Rate 7 5 Fraction of Inspired Oxygen 10/18/22 16:00 10/18/22 18:00 10/18/22 16:00 Temperature Pulse Rate 126 H 128 H 123 H Respiratory Rate 17 Blood Pressure Pulse Oximetry 100 Oxygen Delivery Nasal Cannula Oxygen Flow Rate 5 Fraction of Inspired Oxygen 10/18/22 19:07 10/18/22 19:37 10/18/22 20:00 Temperature 38.3 C H 37.2 C Pulse Rate 126 H Respiratory Rate Blood Pressure Pulse Oximetry Oxygen Delivery Oxygen Flow Rate Fraction of Inspired Oxygen 10/18/22 20:00 10/18/22 20:00 10/18/22 22:00 Temperature 37.2 C Pulse Rate 110 H 110 H 124 H Respiratory Rate 17 17 Blood Pressure 122/77 Pulse Oximetry 92 92 Oxygen Delivery Nasal Cannula Oxygen Flow Rate 5 Fraction of Inspired Oxygen 10/19/22 00:00 10/19/22 00:00 10/19/22 00:00 Temperature 37.3 C Pulse Rate 127 H 127 H 125 H Respiratory Rate 20 20 Blood Pressure 114/80 Pulse Oximetry 99 99 Oxygen Delivery Nasal Cannula Oxygen Flow Rate 5 Fraction of Inspired Oxygen 10/19/22 02:00 10/19/22 02:00 10/19/22 03:59 Temperature 38.3 C H Pulse Rate 126 H 126 H Respiratory Rate 24 H Blood Pressure 120/82 Pulse Oximetry 94 Oxygen Delivery Oxygen Flow Rate Fraction of Inspired Oxygen 10/19/22 04:00 10/19/22 04:00 10/19/22 04:00 Temperature 38.3 C H Pulse Rate 127 H 125 H 125 H Respiratory Rate 24 H 24 H Blood Pressure 125/86 Pulse Oximetry 95 95 Oxygen Delivery High Flow Nasal Cannula Oxygen Flow Rate 10 Fraction of Inspired Oxygen 10/18/22 20:20 10/19/22 05:00 10/19/22 04:29 Temperature 36.5 C Pulse Rate Respiratory Rate Blood Pressure Pulse Oximetry 93 94 Oxygen Delivery Nasal Cannula High Flow Nasal Cannula Oxygen Flow Rate 5 8 Fraction of Inspired Oxygen 10/19/22 06:00 10/19/22 08:00 10/19/22 08:00 Temperature 38.1 C H Pulse Rate 123 H 108 H Respiratory Rate 22 H Blood Pressure 110/77 Pulse Oximetry 98 95 Oxygen Delivery High Flow Nasal Cannula Oxygen Flow Rate 10 Fraction of Inspired Oxygen 10/19/22 08:52 10/19/22 09:10 10/19/22 09:25 Temperature Pulse Rate 136 H 133 H 143 H Respiratory Rate 19 16 21 H Blood Pressure 111/82 Pu
--- NOTE | 2022-10-19 11:59 | PC.NURSE ---
Addendum entered by Sissy Bryant RN 10/19/22 12:07: Time for this event was 0840. Original Note: apparatus engineering technologist taking vitals and spO2 was 77%-82%. Tech notified RN, and RN to bedside and place patient on 15L HF. RN notified Respiratory, who came with an airvo. RN notified Dr. webster. RN apply venteri mask on top of 15L HF NC. Oxygen saturation came up to 88%. Airvo applied. Chest Xray taken. Oxygenation not improving. Dr. webster decided to intubate patient. Patient placed on vent CMV TV- 350, Rate-16, FiO2 -100%, Peep-10. Will continue to monitor per ICU protocols.
--- NOTE | 2022-10-19 14:06 | PM.IMCN ---
Assessment and Plan Assessment and plan (1) Acute respiratory failure: Code(s): J96.00 - Acute respiratory failure, unspecified whether with hypoxia or hypercapnia Status: Acute Assessment and Plan: patient was hypoxic on emergently intubated (2) Stercoral colitis: Code(s): K52.89 - Other specified noninfective gastroenteritis and colitis Status: Acute Assessment and Plan: Ricky Swanson is a 42 year old male with mental illiness, developmentally delay, autism, non-verbal was sent to ER with abdominal pain and distention, poor appetite and diarrhea, CT scan abdomen concerning for massive fecal impaction, stercoral colitis, possible ischemic colitis. patient was seen by general surgeon and had post Exploratory laparotomy, sigmoid colectomy, creation of end colostomy POD # 2, today patient was hypoxic in ICU and was intubated by slab polisher and emergent necessity and currently on vent and uable to provide and history or ROS, we are consulted for medical management, patient seen by slab polisher and appreciate HPI Data of Consult Consult date: 10/19/22 Requesting Physician: Minnie Perez MD Primary Care Provider: Harmony PalmaMD Consult Narrative Narrative: Ricky Swanson is a 42 year old male with mental illiness, developmentally delay, autism, non-verbal was sent to ER with abdominal pain and distention, poor appetite and diarrhea, CT scan abdomen concerning for massive fecal impaction, stercoral colitis, possible ischemic colitis. patient was seen by general surgeon and had post Exploratory laparotomy, sigmoid colectomy, creation of end colostomy POD # 2, today patient was hypoxic in ICU and was intubated by slab polisher and emergent necessity and currently on vent and uable to provide and history or ROS, we are consulted for medical management, Review of Systems Review of Systems: ROS unobtainable: Yes unobtainable due to endotracheal tube PMFSH Past Medical History Medical History Autism Social History Social History Smoking status: Never smoker Alcohol intake: never Substance use: never Spiritual care concerns: No Meds Home Medications and Allergies Home Medications Medication Instructions Recorded Confirmed Type bisacodyl 5 mg tablet,delayed 5 mg PO DAILY PRN Constipation 10/16/22 10/17/22 History release pantoprazole 40 mg tablet,delayed 40 mg PO DAILY 10/16/22 10/17/22 History release lactulose 10 gram/15 mL oral 20 g PO TID 10/17/22 10/17/22 History solution Allergies Allergy/AdvReac Type Severity Reaction Status Date / Time No Known Allergies Allergy Verified 10/16/22 19:27 Vital Signs Vital Signs - 24 hr 10/18/22 14:37 10/18/22 17:28 10/18/22 17:00 Temperature 101.0 F H Pulse Rate 117 H 124 H Respiratory Rate 15 16 Blood Pressure 118/76 Pulse Oximetry 98 99 99 Oxygen Delivery High Flow Nasal Cannula Nasal Cannula Oxygen Flow Rate 7 5 Fraction of Inspired Oxygen 10/18/22 16:00 10/18/22 18:00 10/18/22 16:00 Temperature Pulse Rate 126 H 128 H 123 H Respiratory Rate 17 Blood Pressure Pulse Oximetry 100 Oxygen Delivery Nasal Cannula Oxygen Flow Rate 5 Fraction of Inspired Oxygen 10/18/22 19:07 10/18/22 19:37 10/18/22 20:00 Temperature 101.0 F H 99 F Pulse Rate 126 H Respiratory Rate Blood Pressure Pulse Oximetry Oxygen Delivery Oxygen Flow Rate Fraction of Inspired Oxygen 10/18/22 20:00 10/18/22 20:00 10/18/22 22:00 Temperature 99.0 F Pulse Rate 110 H 110 H 124 H Respiratory Rate 17 17 Blood Pressure 122/77 Pulse Oximetry 92 92 Oxygen Delivery Nasal Cannula Oxygen Flow Rate 5 Fraction of Inspired Oxygen 10/19/22 00:00 10/19/22 00:00 10/19/22 00:00 Temperature 99.1 F Pulse Rate 127 H 127 H 125 H Respiratory Rate 20 20
[2022-10-19] MEDS: MIDAZOLAM HCL (*CRX) 2 MG/2 ML VIAL IV PUSH (15:10)
[2022-10-19] MEDS: MIDAZOLAM 100MG/NS 100ML(*CRX) 100 MG/100 ML BAG IV CONT (15:49)
[2022-10-20] VITALS (29 sets, daily range): BP systolic 99–120; BP diastolic 57–79; PULSE 100–135; RESP 14–17; TEMP 36.8–38.4; O2SAT 91–100
[2022-10-20 05:03] LABS: Hematocrit 24.3 % (42.0-52.0); Hemoglobin 7.2 g/dL (14.0-18.0); Mean Corpuscular HGB Conc 29.6 g/dl (32-36); Platelet Count Result 292 k/mm3 (150-375)
[2022-10-20 05:17] LABS: Alanine Aminotransferase 24 U/L (6-50); Albumin Level 2.6 g/dL (3.5-5.1); Alkaline Phosphatase 77 U/L (38-126); Anion Gap 5 mmol/L (8-16); Aspartate Amino Transferase 49 U/L (17-59); Bilirubin,Total 0.8 mg/dL (0.2-1.3); Blood Urea Nitrogen 7 mg/dL (9-20); Calcium 6.7 mg/dL (8.4-10.2); Carbon Dioxide 28 mmol/L (22-30); Chloride 103 mmol/L (98-107); Estimated CRCL calculation 112 ml/min; Estimated Glomerular Filt Rate > 60; Glucose 132 mg/dL (65-110); Magnesium 2.2 mg/dL (1.6-2.3); Phosphorus 1.8 mg/dL (2.5-4.5); Potassium 3.3 mmol/L (3.4-5.0); Sodium 136 mmol/L (137-145)
[2022-10-20 05:17] LABS: Alveolar/Arterial O2 Gradient 285.6 mmHg; Base Excess ABG 7.4 mEq/l (+/-2.0); Carboxyhemoglobin 0.3 % THb (0-2.0); Fractional Inspired Oxygen 60 %; HCO3 ABG 31.6 mEq/l (22.0-26.0); Methemoglobin ABG 0.7 %THb (0-1.5); Oxygen Content ABG 6.2 %vol (16.0-22.0); Oxygen Saturation ABG 97.6 % (95.0-100.0); PCO2 ABG 43.6 mmHg (35.0-45.0); PO2 ABG 94.2 mmHg (80.0-100.0); PO2 FiO2 Ratio Arterial Blood 1.57 %; pH ABG 7.478 (7.350-7.450)
[2022-10-20 05:18] LABS: Device VENTILATOR; Modified Allen's Test Unable to perform; Site Drawn RIGHT RADIAL
[2022-10-20 05:19] LABS: Arterial Blood Gas PEEP 10 cmH2O; Arterial Blood Gas Tidal Volume 350 ml; Arterial Blood Gas Vent Mode CMV; Arterial Blood Gas Ventilator rate 16 /MIN
--- NOTE | 2022-10-20 08:14 | WPDINTPN ---
Progress Note: A&P Assessment and Plan (1) Acute respiratory failure: Code(s): J96.00 - Acute respiratory failure, unspecified whether with hypoxia or hypercapnia Status: Acute Assessment and Plan: Patient was intubated and placed on mechanical ventilation for general anesthesia 10/17 extubated 10/18 downgraded to step-down unit, CPT was ordered 10/19 Increased oxygen requirement overnight. Hypoxic this morning. Patient has been pulling off his oxygen repeatedly bite restrained. He also pulled NG tube out. He has not been clearing his secretions. He resists any attempts to suction him. On my arrival patient was hypoxic with low saturation. Despite placement of Airvo, sats remain low. Secretions could be easily heard in his upper airway. Patient clench his teeth whenever we try to suction him. Decreased air movement throughout lungs on exam. Patient was given some sedatives which did allow suction was oral airway but his saturations remained low. Patient is full code and decision was made to intubate patient at this time to protect his airway and treat his hypoxia Patient was reintubated. She chest x-ray shows ET tube in acceptable position with right lung atelectasis and infiltrate which could have progress to pneumonia Patient placed on CMV 350 tidal volume 16 rate 10 of PEEP 100% FiO2 10/20 ABG reviewed Wean FiO2 to 50% continue PEEP of 10 at this time. Decrease rate to 14 Chest x-ray reviewed Continue Zosyn which should cover for any aspiration (2) Stercoral colitis: Code(s): K52.89 - Other specified noninfective gastroenteritis and colitis Status: Acute Assessment and Plan: Ischemic stercoral colitis secondary to chronic constipation and dilation of sigmoid colon Now status post Exploratory laparotomy, sigmoid colectomy, creation of end colostomy Brown liquid output from ostomy and ostomy appears slightly prolapse. -Management per General surgery Pain control MiraLax and Dulcolax for chronic constipation Continue tube feeds and advance if okay with General surgery (3) Septic shock: Code(s): A41.9 - Sepsis, unspecified organism; R65.21 - Severe sepsis with septic shock Status: Acute Assessment and Plan: Secondary to ischemic colitis Patient received 3 L of IV fluid bolus on admission and was on LR. He was given additional fluid bolus in the ICU Continue Zosyn Cultures are negative for now Continue IV fluids Continue Levophed titration to maintain map (4) Influenza A: Code(s): J10.1 - Influenza due to other identified influenza virus with other respiratory manifestations Status: Acute Assessment and Plan: Patient tested positive for influenza A. Not sure if it is symptomatic as patient is unable to provide history Continue five-day course of Tamiflu (5) Electrolyte abnormality: Code(s): E87.8 - Other disorders of electrolyte and fluid balance, not elsewhere classified Status: Acute Assessment and Plan: Replace low potassium calcium and phosphate Plan DVT prophylaxis -Lovenox Stress ulcer prophylaxis -Pepcid Nutrition -on trickle tube feeds Code Status - Full Code 10/19 I spoke to patient's sister Samia by phone and updated her with patient's current status including re-intubation from worsening respiratory failure and current treatment. I answered all her questions Total Critical Care Time - 32 minutes Due to a high probability of clinically significant, life threatening deterioration, the patient required my highest level of preparedness to intervene emergently and I personally spent this critical care time directly and personally managing the patient. This critical care time included obtaining a history; examining the patient; pulse oximetry; ordering and review of studies; arranging urgent treatment with development of a management plan; evaluation of patient's response to treatment; frequent reassessment; and discussions w
[2022-10-20] MEDS: FAMOTIDINE 20 MG/2 ML VIAL IV PUSH ×2 (08:52→20:07)
[2022-10-20] MEDS: OSELTAMIVIR PHOSPHATE 75 MG CAPSULE PO ×2 (08:52→20:08)
[2022-10-20] MEDS: MINERAL OIL/WHITE PETROLATUM OINTMENT 1 APPLIC EACH EYE ×2 (08:52→20:07)
[2022-10-20] MEDS: ENOXAPARIN 40 MG/0.4 ML SYRINGE SUB-Q (08:52)
[2022-10-20] MEDS: polyethylene glycoL 3350 17 GM POWD.PACK PO (09:03)
[2022-10-20] MEDS: POTASSIUM CHLORIDE 20 MEQ PACKET (FOR LIQUID) 40 MEQ FEED TUBE (09:03)
[2022-10-20] MEDS: CALCIUM GLUC 2,000 MG/NS 100ML 2,000 MG/100 ML BAG 100 MG IVPB (09:07)
[2022-10-20] MEDS: FENTANYL 2,500MCG/NS250ML(*CRX 2,500 MCG/250 ML BAG 10 MCG IV CONT (09:31)
[2022-10-20 12:15] LABS: Glucose Point of Care 100 mg/dl (65-105)
--- NOTE | 2022-10-20 14:47 | PM.PNGS ---
Progress Note: A&P Assessment and Plan (1) Stercoral colitis: Code(s): K52.89 - Other specified noninfective gastroenteritis and colitis Status: Acute Assessment and Plan: exam benign, +ostomy output, yin trophic feeds, slowly up feeds to goal (2) Septic shock: Code(s): A41.9 - Sepsis, unspecified organism; R65.21 - Severe sepsis with septic shock Status: Acute Assessment and Plan: likely now secondary to aspiration PNA, cont abx (3) Acute respiratory failure: Code(s): J96.00 - Acute respiratory failure, unspecified whether with hypoxia or hypercapnia Status: Acute Assessment and Plan: see above, vent mgmt per bilingual student tutor Subjective Subjective Date/Time Seen: 10/20/22 14:47 a little better today, off pressors Review of Systems Review of Systems: ROS unobtainable: Yes unobtainable due to endotracheal tube, unobtainable due to medical condition and unobtainable due to mental status Exam Const: General: ill appearing Other: intubated, sedated Resp: Auscultation: diminished lung sounds Cardio: Rate: tachycardic Rhythm: regular rhythm GI: Inspection: normal to inspection, distended and incision GI Palp: Yes abdominal tenderness Other: ostomy - + fxn Objective Data Vital Signs Vital Signs: Vital Signs - 24 hr 10/19/22 14:48 10/19/22 15:01 10/19/22 15:49 Temperature 37.7 C H Pulse Rate 98 99 97 Respiratory Rate 16 16 Blood Pressure 106/67 Pulse Oximetry 100 100 Oxygen Delivery Mechanical Ventilation Fraction of Inspired Oxygen 70 10/19/22 16:00 10/19/22 17:12 10/19/22 16:00 Temperature Pulse Rate 88 83 Respiratory Rate Blood Pressure Pulse Oximetry 96 96 Oxygen Delivery Mechanical Ventilation Mechanical Ventilation Fraction of Inspired Oxygen 70 60 10/19/22 18:00 10/19/22 18:00 10/19/22 20:00 Temperature 37.2 C 37.3 C Pulse Rate 98 96 117 H Respiratory Rate 16 19 Blood Pressure 112/81 118/72 Pulse Oximetry 100 97 Oxygen Delivery Fraction of Inspired Oxygen 10/19/22 20:47 10/19/22 20:00 10/19/22 20:00 Temperature Pulse Rate 115 H 115 H 115 H Respiratory Rate 19 Blood Pressure Pulse Oximetry 99 99 Oxygen Delivery Mechanical Ventilation Mechanical Ventilation Fraction of Inspired Oxygen 60 60 10/19/22 22:36 10/19/22 22:36 10/19/22 22:43 Temperature 38.8 C H Pulse Rate 135 H 135 H Respiratory Rate 17 Blood Pressure Pulse Oximetry 91 91 Oxygen Delivery Mechanical Ventilation Fraction of Inspired Oxygen 60 10/19/22 22:00 10/19/22 22:00 10/19/22 23:05 Temperature Pulse Rate 135 H 133 H 135 H Respiratory Rate 16 Blood Pressure 100/69 100/69 Pulse Oximetry 99 Oxygen Delivery Fraction of Inspired Oxygen 10/20/22 00:00 10/20/22 00:00 10/20/22 00:00 Temperature 38.4 C H Pulse Rate 122 H 135 H 121 H Respiratory Rate 17 16 Blood Pressure 103/68 Pulse Oximetry 91 100 Oxygen Delivery Mechanical Ventilation Fraction of Inspired Oxygen 60 10/20/22 02:00 10/20/22 02:00 10/20/22 02:37 Temperature Pulse Rate 107 H 107 H 109 H Respiratory Rate 16 Blood Pressure 102/66 Pulse Oximetry 100 100 Oxygen Delivery Mechanical Ventilation Fraction of Inspired Oxygen 60 10/20/22 04:00 10/20/22 04:00 10/20/22 04:00 Temperature 36.8 C Pulse Rate 106 H 109 H 106 H Respiratory Rate 16 16 Blood Pressure 119/71 Pulse Oximetry 100 100 Oxygen Delivery Mechanical Ventilation Fraction of Inspired Oxygen 60 10/20/22 04:30 10/20/22 06:18 10/20/22 06:00 Temperature Pulse Rate 102 H 100 100 Respiratory Rate Blood Pressure 114/75 Pulse Oximetry 100 Oxygen Delivery Mechanical Ventilation Fraction of Inspired Oxygen 60 10/20/22 06:00 10/20/22 08:31 10/20/22 08:00 Temperature 36.9 C Pulse Rate 100 112 H 103 H Respiratory Rate 16 16 Blood Pressure 114/75 110/72 Pulse Oximetry 100 99 1
[2022-10-20] MEDS: MIDAZOLAM 100MG/NS 100ML(*CRX) 100 MG/100 ML BAG IV CONT (16:01)
[2022-10-20 17:43] LABS: Glucose Point of Care 129 mg/dl (65-105)
[2022-10-21] VITALS (29 sets, daily range): BP systolic 104–127; BP diastolic 69–86; PULSE 105–132; RESP 14–21; TEMP 36.9–38.3; O2SAT 95–99; BMI 16.5
[2022-10-21 00:21] LABS: Glucose Point of Care 110 mg/dl (65-105)
[2022-10-21 04:49] LABS: Mean Corpuscular HGB Conc 29.2 g/dl (32-36); Mean Corpuscular Hemoglobin 23.8 pg (26-34); Mean Corpuscular Volume 81.6 fl (80-100); Mean Platelet Volume 9.5 fl (7.4-10.4); Platelet Count Result 314 k/mm3 (150-375); Red Blood Count 2.94 M/mm3 (4.6-6.20); Red Cell Distribution Width 18.3 % (11.5-14.5); White Blood Count 16.1 K/mm3 (4.5-10.0)
[2022-10-21 04:58] LABS: Alanine Aminotransferase 25 U/L (6-50); Albumin Level 2.7 g/dL (3.5-5.1); Alkaline Phosphatase 228 U/L (38-126); Anion Gap 3 mmol/L (8-16); Aspartate Amino Transferase 37 U/L (17-59); Bilirubin,Total 0.5 mg/dL (0.2-1.3); Blood Urea Nitrogen 7 mg/dL (9-20); Calcium 7.3 mg/dL (8.4-10.2); Carbon Dioxide 30 mmol/L (22-30); Chloride 107 mmol/L (98-107); Estimated CRCL calculation 96 ml/min; Estimated Glomerular Filt Rate > 60; Glucose 136 mg/dL (65-110); Potassium 3.7 mmol/L (3.4-5.0); Sodium 140 mmol/L (137-145)
[2022-10-21 04:59] LABS: Base Excess ABG 7.1 mEq/l (+/-2.0); Carboxyhemoglobin 0.5 % THb (0-2.0); Fractional Inspired Oxygen 35 %; HCO3 ABG 31.6 mEq/l (22.0-26.0); Methemoglobin ABG 0.2 %THb (0-1.5); Oxygen Content ABG 10.9 %vol (16.0-22.0); Oxygen Saturation ABG 95.9 % (95.0-100.0); Oxyhemoglobin 94.5 % THb (90.0-100.0); PCO2 ABG 45.4 mmHg (35.0-45.0); PO2 ABG 76.8 mmHg (80.0-100.0); PO2 FiO2 Ratio Arterial Blood 2.19 %; Reduced Hemoglobin 4.8 %THb (0-5.0); Total Hemoglobin 8.1 g/dL (12.0-18.0); pH ABG 7.461 (7.350-7.450)
[2022-10-21 05:00] LABS: Device VENTILATOR; Modified Allen's Test Unable to perform; Site Drawn RIGHT RADIAL
[2022-10-21 05:01] LABS: Arterial Blood Gas PEEP 10 cmH2O; Arterial Blood Gas Tidal Volume 350 ml; Arterial Blood Gas Vent Mode CMV; Arterial Blood Gas Ventilator rate 14 /MIN
[2022-10-21 05:02] LABS: Magnesium 2.1 mg/dL (1.6-2.3); Phosphorus 2.5 mg/dL (2.5-4.5)
[2022-10-21 05:30] LABS: Glucose Point of Care 113 mg/dl (65-105)
--- NOTE | 2022-10-21 09:02 | WPDINTPN ---
Progress Note: A&P Assessment and Plan (1) Acute respiratory failure: Code(s): J96.00 - Acute respiratory failure, unspecified whether with hypoxia or hypercapnia Status: Acute Assessment and Plan: Patient was intubated and placed on mechanical ventilation for general anesthesia 10/17 extubated 10/18 downgraded to step-down unit, CPT was ordered 10/19 Increased oxygen requirement overnight. Hypoxic this morning. Patient has been pulling off his oxygen repeatedly bite restrained. He also pulled NG tube out. He has not been clearing his secretions. He resists any attempts to suction him. On my arrival patient was hypoxic with low saturation. Despite placement of Airvo, sats remain low. Secretions could be easily heard in his upper airway. Patient clench his teeth whenever we try to suction him. Decreased air movement throughout lungs on exam. Patient was given some sedatives which did allow suction was oral airway but his saturations remained low. Patient is full code and decision was made to intubate patient at this time to protect his airway and treat his hypoxia Patient was reintubated. She chest x-ray shows ET tube in acceptable position with right lung atelectasis and infiltrate which could have progress to pneumonia Patient placed on CMV 350 tidal volume 14 rate 10 of PEEP 135% FiO2 10/20 ABG reviewed decrease PEEP to 8 Chest x-ray reviewed Continue Zosyn which should cover for any aspiration (2) Stercoral colitis: Code(s): K52.89 - Other specified noninfective gastroenteritis and colitis Status: Acute Assessment and Plan: Ischemic stercoral colitis secondary to chronic constipation and dilation of sigmoid colon Now status post Exploratory laparotomy, sigmoid colectomy, creation of end colostomy Brown liquid output from ostomy and ostomy appears slightly prolapse. -Management per General surgery Pain control MiraLax and Dulcolax for chronic constipation Continue tube feeds and advance Roshan with General surgery (3) Septic shock: Code(s): A41.9 - Sepsis, unspecified organism; R65.21 - Severe sepsis with septic shock Status: Acute Assessment and Plan: Secondary to ischemic colitis and pneumonia Blood cultures are growing 1/2 Leuconostoc mesenteroides ssp cremoris which is likely contaminant Off Levophed WBCs improving as patient is afebrile this morning Continue IV fluids Continue Zosyn Continue Levophed titration to maintain map (4) Influenza A: Code(s): J10.1 - Influenza due to other identified influenza virus with other respiratory manifestations Status: Acute Assessment and Plan: Patient tested positive for influenza A. Not sure if it is symptomatic as patient is unable to provide history Continue five-day course of Tamiflu (5) Electrolyte abnormality: Code(s): E87.8 - Other disorders of electrolyte and fluid balance, not elsewhere classified Status: Acute Assessment and Plan: Replace low potassium calcium (6) Anemia: Code(s): D64.9 - Anemia, unspecified Status: Acute Assessment and Plan: Hemoglobin has been trending down No obvious signs of bleeding Recheck CBC later in the day Transfuse if needed Repeat coags Plan DVT prophylaxis -Lovenox Stress ulcer prophylaxis -Pepcid Nutrition - tube feeds Code Status - Full Code 10/19 I spoke to patient's sister Samia by phone and updated her with patient's current status including re-intubation from worsening respiratory failure and current treatment. I answered all her questions Total Critical Care Time - 30 minutes Due to a high probability of clinically significant, life threatening deterioration, the patient required my highest level of preparedness to intervene emergently and I personally spent this critical care time directly and personally managing the patient. This critical care time included obtaining a history; examining the patient; pulse oxi
[2022-10-21] MEDS: POTASSIUM CHLORIDE 20 MEQ PACKET (FOR LIQUID) 40 MEQ FEED TUBE (09:15)
[2022-10-21] MEDS: ENOXAPARIN 40 MG/0.4 ML SYRINGE SUB-Q (09:15)
[2022-10-21] MEDS: MINERAL OIL/WHITE PETROLATUM OINTMENT 1 APPLIC EACH EYE ×2 (09:15→21:11)
[2022-10-21] MEDS: FAMOTIDINE 20 MG/2 ML VIAL IV PUSH ×2 (09:16→21:12)
[2022-10-21] MEDS: OSELTAMIVIR PHOSPHATE 75 MG CAPSULE PO ×2 (09:16→21:12)
[2022-10-21] MEDS: CALCIUM GLUC 2,000 MG/NS 100ML 2,000 MG/100 ML BAG 100 MG IVPB (09:51)
--- NOTE | 2022-10-21 10:27 | PCFNICU ---
ICU Rounding Note: Pt current nutrition is Vital 1.2 @ 30 ml/h. Nutrition recommendation: Advance to goal rate. New goal rate of 55 ml/h to meet protein energy needs. Provides 1450 kcals, 91 g protein, 981 ml free water. Flushes 30 ml q 4 hours. Total water 1160 ml/day. Last recorded weight is 52.1 kg. Bowel Motility: + BMs per ostomy. Liquid and formed stool. Labs Reviewed: hGB 7.0, hCT 24.0, aLB 2.7, bun 7, cREAT 0.6, gLU 136 Meds Noted: Fentanyl, versed Skin: incision to abdomen Additional Notes: Intubated and started on Vital 1.2 AF. No pressors. MAP 84. New goal rate Vital 1.2 AF @ goal rate 55 ml/h to provides 100% of EER and estimated protein needs. Following daily in ICU rounds. Monitoring plan of care, weights, labs, intakes, tolerance
[2022-10-21] MEDS: MIDAZOLAM 100MG/NS 100ML(*CRX) 100 MG/100 ML BAG IV CONT (11:35)
[2022-10-21] MEDS: FENTANYL 2,500MCG/NS250ML(*CRX 2,500 MCG/250 ML BAG 10 MCG IV CONT (11:36)
[2022-10-21] MEDS: polyethylene glycoL 3350 17 GM POWD.PACK PO (11:37)
--- NOTE | 2022-10-21 11:47 | PM.PNGS ---
Progress Note: A&P Assessment and Plan (1) Stercoral colitis: Code(s): K52.89 - Other specified noninfective gastroenteritis and colitis Status: Acute Assessment and Plan: POD4 and ostomy is functioning well, continue to increase tube feeding to goal. Wound care going by today to re-evaluate ostomy appliance for 2-piece with the prolapse. (2) Septic shock: Code(s): A41.9 - Sepsis, unspecified organism; R65.21 - Severe sepsis with septic shock Status: Acute Assessment and Plan: Secondary to ischemic stercoral colitis vs pneumonia vs multifactorial, continue antibiotics, off vasopressors, WBC trending down (3) Acute respiratory failure: Code(s): J96.00 - Acute respiratory failure, unspecified whether with hypoxia or hypercapnia Status: Acute Assessment and Plan: On mechanical ventilator in ICU. Wean vent as tolerated per Vice President Of Marketing. Plan I have discussed the patient's case and plan of care with Dr. Perez. Subjective Subjective Date/Time Seen: 10/21/22 11:47 Post Op day: 4 (Ex lap, sigmoidectomy with creation end colostomy) Interval history: Chart reviewed. Patient seen in the ICU. He is on the mechanical ventilator and unable to answer questions. Per nursing, no acute events overnight or issues this morning. Tolerating tube feedings at 40 mL/hr. Ostomy functioning well. The nurse changed the midline incision dressing this morning and reports the incision was dry and lencho intact without any concerns. Review of Systems Review of Systems: ROS unobtainable: Yes unobtainable due to endotracheal tube Exam Const: General: ill appearing Orientation/consciousness: patient obtunded (sedated on a vent) Resp: Effort & Inspection: abnormal respiratory pattern (mechanical ventilator) Cardio: Rate: tachycardic Rhythm: regular rhythm GI: Inspection: distended and incision (dressing dry and intact) GI Palp: Yes Soft to palpation and No Guarding due to palpation present (GI) Other: Ostomy with stoma slightly prolapsed but viable and functioning well with large amount of stool in bag Urinary Catheter: Urinary Catheter: patent and draining and urine clear Objective Data Vital Signs Vital Signs: Vital Signs - 24 hr 10/20/22 12:00 10/20/22 12:00 10/20/22 12:17 Temperature 100.7 F H Pulse Rate 130 H Respiratory Rate Blood Pressure Pulse Oximetry 99 Oxygen Delivery Mechanical Ventilation Fraction of Inspired Oxygen 45 10/20/22 14:20 10/20/22 14:00 10/20/22 14:00 Temperature Pulse Rate 123 H 130 H 130 H Respiratory Rate 14 Blood Pressure 99/57 L Pulse Oximetry 99 99 Oxygen Delivery Mechanical Ventilation Fraction of Inspired Oxygen 35 10/20/22 16:00 10/20/22 16:00 10/20/22 12:00 Temperature 99.0 F Pulse Rate 119 H 129 H Respiratory Rate 17 14 Blood Pressure 110/65 Pulse Oximetry 97 97 Oxygen Delivery Mechanical Ventilation Fraction of Inspired Oxygen 35 10/20/22 14:00 10/20/22 16:00 10/20/22 16:00 Temperature Pulse Rate 129 H 120 H 116 H Respiratory Rate 14 16 Blood Pressure Pulse Oximetry Oxygen Delivery Fraction of Inspired Oxygen 10/20/22 17:21 10/20/22 18:00 10/20/22 18:00 Temperature Pulse Rate 120 H 116 H 116 H Respiratory Rate 15 Blood Pressure 107/69 Pulse Oximetry 98 97 Oxygen Delivery Mechanical Ventilation Fraction of Inspired Oxygen 35 10/20/22 19:59 10/20/22 20:00 10/20/22 20:00 Temperature 98.8 F Pulse Rate 116 H 116 H Respiratory Rate 15 Blood Pressure 107/68 Pulse Oximetry 99 99 Oxygen Delivery Mechanical Ventilation Fraction of Inspired Oxygen 35 10/20/22 20:50 10/20/22 22:00 10/20/22 22:00 Temperature Pulse Rate 120 H 119 H 119 H Respiratory Rate 15 Blood Pressure 105/63 Pulse Oximetry 96 96 Oxygen Delivery Mechanical Ventilation Fraction of Inspired Oxygen 35 10/20/22 22:49 10/21/22 00:00 10/21/22
[2022-10-21 13:09] LABS: Glucose Point of Care 98 mg/dl (65-105)
[2022-10-21 13:58] LABS: Total Hemoglobin 4.4 g/dL (12.0-18.0)
[2022-10-21 14:32] LABS: Hematocrit 26.5 % (42.0-52.0); Hemoglobin 7.7 g/dL (14.0-18.0); Mean Corpuscular HGB Conc 29.1 g/dl (32-36); Mean Corpuscular Hemoglobin 23.1 pg (26-34); Mean Corpuscular Volume 79.3 fl (80-100); Mean Platelet Volume 9.8 fl (7.4-10.4); Platelet Count Result 357 k/mm3 (150-375); Red Blood Count 3.34 M/mm3 (4.6-6.20); Red Cell Distribution Width 18.6 % (11.5-14.5); White Blood Count 19.8 K/mm3 (4.5-10.0)
[2022-10-21 14:37] LABS: INR 1.1; Prothrombin Time 13.8 Seconds (11.1-14.7)
[2022-10-21] MEDS: CENTRAL LINE FLUSH 10 ML IV PUSH ×3 (14:41→21:11)
[2022-10-21 18:57] LABS: Glucose Point of Care 118 mg/dl (65-105)
[2022-10-21 23:29] LABS: Glucose Point of Care 115 mg/dl (65-105)
[2022-10-22] VITALS (54 sets, daily range): BP systolic 97–122; BP diastolic 64–77; PULSE 108–132; RESP 14–20; TEMP 37.1–37.4; O2SAT 90–98
[2022-10-22 04:28] LABS: Hematocrit 25.7 % (42.0-52.0); Hemoglobin 7.4 g/dL (14.0-18.0); Mean Corpuscular HGB Conc 28.8 g/dl (32-36); Mean Corpuscular Hemoglobin 23.6 pg (26-34); Mean Corpuscular Volume 82.1 fl (80-100); Mean Platelet Volume 10.4 fl (7.4-10.4); Platelet Count Result 381 k/mm3 (150-375); Red Blood Count 3.13 M/mm3 (4.6-6.20); Red Cell Distribution Width 18.6 % (11.5-14.5); White Blood Count 15.8 K/mm3 (4.5-10.0)
[2022-10-22 04:46] LABS: Alanine Aminotransferase 33 U/L (6-50); Alkaline Phosphatase 116 U/L (38-126); Anion Gap 8 mmol/L (8-16); Aspartate Amino Transferase 41 U/L (17-59); Bilirubin,Total 0.4 mg/dL (0.2-1.3); Blood Urea Nitrogen 10 mg/dL (9-20); Calcium 7.5 mg/dL (8.4-10.2); Carbon Dioxide 29 mmol/L (22-30); Chloride 102 mmol/L (98-107); Estimated CRCL calculation 117 ml/min; Estimated Glomerular Filt Rate > 60; Glucose 133 mg/dL (65-110); Phosphorus 3.2 mg/dL (2.5-4.5); Potassium 3.8 mmol/L (3.4-5.0); Sodium 139 mmol/L (137-145)
[2022-10-22] MEDS: CENTRAL LINE FLUSH 10 ML IV PUSH ×4 (05:01→20:50)
[2022-10-22 05:53] LABS: Alveolar/Arterial O2 Gradient 117.4 mmHg; Base Excess ABG 6.5 mEq/l (+/-2.0); Carboxyhemoglobin 0.6 % THb (0-2.0); Fractional Inspired Oxygen 35 %; HCO3 ABG 30.5 mEq/l (22.0-26.0); Methemoglobin ABG 0.1 %THb (0-1.5); Oxygen Content ABG 11.4 %vol (16.0-22.0); Oxygen Saturation ABG 96.9 % (95.0-100.0); Oxyhemoglobin 95.6 % THb (90.0-100.0); PCO2 ABG 41.7 mmHg (35.0-45.0); PO2 ABG 83.7 mmHg (80.0-100.0); PO2 FiO2 Ratio Arterial Blood 2.39 %; Reduced Hemoglobin 3.7 %THb (0-5.0); Total Hemoglobin 8.4 g/dL (12.0-18.0); pH ABG 7.482 (7.350-7.450)
[2022-10-22 05:54] LABS: Device VENTILATOR; Modified Allen's Test Pass; Site Drawn RIGHT RADIAL
[2022-10-22 05:55] LABS: Arterial Blood Gas PEEP 8 cmH2O; Arterial Blood Gas Tidal Volume 350 ml; Arterial Blood Gas Vent Mode CMV; Arterial Blood Gas Ventilator rate 14 /MIN
[2022-10-22 06:38] LABS: Glucose Point of Care 107 mg/dl (65-105)
[2022-10-22] MEDS: MIDAZOLAM 100MG/NS 100ML(*CRX) 100 MG/100 ML BAG IV CONT (07:44)
[2022-10-22] MEDS: FENTANYL 2,500MCG/NS250ML(*CRX 2,500 MCG/250 ML BAG 12.5 MCG IV CONT (07:45)
--- NOTE | 2022-10-22 09:38 | WPDINTPN ---
Progress Note: A&P Assessment and Plan (1) Acute respiratory failure: Code(s): J96.00 - Acute respiratory failure, unspecified whether with hypoxia or hypercapnia Status: Acute Assessment and Plan: Patient was intubated and placed on mechanical ventilation for general anesthesia 10/17 extubated 10/18 downgraded to step-down unit, CPT was ordered 10/19 Increased oxygen requirement overnight. Hypoxic this morning. Patient has been pulling off his oxygen repeatedly bite restrained. He also pulled NG tube out. He has not been clearing his secretions. He resists any attempts to suction him. On my arrival patient was hypoxic with low saturation. Despite placement of Airvo, sats remain low. Secretions could be easily heard in his upper airway. Patient clench his teeth whenever we try to suction him. Decreased air movement throughout lungs on exam. Patient was given some sedatives which did allow suction was oral airway but his saturations remained low. Patient is full code and decision was made to intubate patient at this time to protect his airway and treat his hypoxia Patient was reintubated. She chest x-ray shows ET tube in acceptable position with right lung atelectasis and infiltrate which could have progress to pneumonia Patient on CMV. Will decrease PEEP to 5 and tidal volume to 320. Currently on FiO2 of 35% ABG reviewed Chest x-ray reviewed Continue Zosyn which should cover for any aspiration (2) Stercoral colitis: Code(s): K52.89 - Other specified noninfective gastroenteritis and colitis Status: Acute Assessment and Plan: Ischemic stercoral colitis secondary to chronic constipation and dilation of sigmoid colon Now status post Exploratory laparotomy, sigmoid colectomy, creation of end colostomy Brown liquid output from ostomy and ostomy appears slightly prolapse. -Management per General surgery Pain control MiraLax and Dulcolax for chronic constipation Continue tube feeds and advance to goal (3) Septic shock: Code(s): A41.9 - Sepsis, unspecified organism; R65.21 - Severe sepsis with septic shock Status: Acute Assessment and Plan: Secondary to ischemic colitis and pneumonia Blood cultures are growing 1/2 Leuconostoc mesenteroides ssp cremoris which is likely contaminant Off Levophed WBCs improving as patient is afebrile this morning Continue IV fluids Continue Zosyn Continue Levophed titration to maintain map (4) Influenza A: Code(s): J10.1 - Influenza due to other identified influenza virus with other respiratory manifestations Status: Acute Assessment and Plan: Patient tested positive for influenza A. Not sure if it is symptomatic as patient is unable to provide history Completed a five-day course of Tamiflu (5) Electrolyte abnormality: Code(s): E87.8 - Other disorders of electrolyte and fluid balance, not elsewhere classified Status: Acute Assessment and Plan: Replace low potassium calcium (6) Anemia: Code(s): D64.9 - Anemia, unspecified Status: Acute Assessment and Plan: Hemoglobin has been trending down No obvious signs of bleeding Recheck CBC later in the day Transfuse if needed Coags normal Plan DVT prophylaxis -Lovenox Stress ulcer prophylaxis -Pepcid Nutrition - tube feeds Code Status - Full Code 10/19 I spoke to patient's sister Samia by phone and updated her with patient's current status including re-intubation from worsening respiratory failure and current treatment. I answered all her questions Total Critical Care Time - 30 minutes Due to a high probability of clinically significant, life threatening deterioration, the patient required my highest level of preparedness to intervene emergently and I personally spent this critical care time directly and personally managing the patient. This critical care time included obtaining a history; examining the patient; pulse oximetry; ordering an
[2022-10-22] MEDS: POTASSIUM CHLORIDE 20 MEQ PACKET (FOR LIQUID) FEED TUBE (10:08)
[2022-10-22] MEDS: ENOXAPARIN 40 MG/0.4 ML SYRINGE SUB-Q (10:08)
[2022-10-22] MEDS: CALCIUM GLUC 2,000 MG/NS 100ML 2,000 MG/100 ML BAG 100 MG IVPB (10:08)
[2022-10-22] MEDS: FAMOTIDINE 20 MG/2 ML VIAL IV PUSH ×2 (10:08→20:50)
[2022-10-22] MEDS: polyethylene glycoL 3350 17 GM POWD.PACK PO (10:09)
[2022-10-22] MEDS: MINERAL OIL/WHITE PETROLATUM OINTMENT 1 APPLIC EACH EYE ×2 (10:09→20:50)
--- NOTE | 2022-10-22 12:12 | PM.PNGS ---
Progress Note: A&P Assessment and Plan (1) Stercoral colitis: Code(s): K52.89 - Other specified noninfective gastroenteritis and colitis Status: Acute Assessment and Plan: POD5 and ostomy is functioning well. Tolerating tube feeding at goal. Continues daily gauze dressing changes to incision. (2) Septic shock: Code(s): A41.9 - Sepsis, unspecified organism; R65.21 - Severe sepsis with septic shock Status: Acute Assessment and Plan: Secondary to ischemic stercoral colitis vs pneumonia vs multifactorial, continue antibiotics, off vasopressors, WBC trending down, afebrile this morning (3) Acute respiratory failure: Code(s): J96.00 - Acute respiratory failure, unspecified whether with hypoxia or hypercapnia Status: Acute Assessment and Plan: On mechanical ventilator in ICU. Wean vent as tolerated per Celery Packer. Plan I have discussed the patient's case and plan of care with Dr. Perez. Subjective Subjective Date/Time Seen: 10/22/22 12:12 Interval history: Patient seen in the ICU. He is on the mechanical ventilator and unable to answer questions. Per nursing, no acute events overnight or issues this morning. Tolerating tube feedings at goal. Ostomy functioning well. Review of Systems Review of Systems: ROS unobtainable: Yes unobtainable due to endotracheal tube Exam Const: General: ill appearing and patient obtunded (sedated on a vent) GI: Inspection: non-distended and incision (lencho intact, scant amount of atwood drainage below umbilicus, no erythema) GI Palp: Yes Soft to palpation and No Guarding due to palpation present (GI) Auscultation: normal bowel sounds Other: Ostomy with stoma slightly prolapsed but viable and functioning well with large amount of stool in bag Urinary Catheter: Urinary Catheter: patent and draining and urine clear Neuro: General: patient obtunded (sedated on a vent) Objective Data Vital Signs Vital Signs: Vital Signs - 24 hr 10/21/22 14:23 10/21/22 14:00 10/21/22 14:00 Temperature Pulse Rate 120 H 126 H 127 H Respiratory Rate 15 Blood Pressure 127/77 Pulse Oximetry 96 96 Oxygen Delivery Mechanical Ventilation Fraction of Inspired Oxygen 35 10/21/22 12:30 10/21/22 12:30 10/21/22 14:45 Temperature Pulse Rate 130 H 130 H 120 H Respiratory Rate 20 20 15 Blood Pressure Pulse Oximetry Oxygen Delivery Fraction of Inspired Oxygen 10/21/22 14:45 10/21/22 16:00 10/21/22 16:00 Temperature 100.8 F H Pulse Rate 120 H 121 H 121 H Respiratory Rate 15 14 14 Blood Pressure 121/73 Pulse Oximetry 96 97 Oxygen Delivery Mechanical Ventilation Fraction of Inspired Oxygen 35 10/21/22 16:29 10/21/22 16:29 10/21/22 16:00 Temperature Pulse Rate 120 H 120 H 120 H Respiratory Rate 14 14 Blood Pressure Pulse Oximetry Oxygen Delivery Fraction of Inspired Oxygen 10/21/22 17:13 10/21/22 18:00 10/21/22 18:00 Temperature Pulse Rate 124 H 120 H 124 H Respiratory Rate 16 Blood Pressure 110/72 Pulse Oximetry 98 97 Oxygen Delivery Mechanical Ventilation Fraction of Inspired Oxygen 35 10/21/22 20:00 10/21/22 20:00 10/21/22 21:00 Temperature 100.3 F H Pulse Rate 115 H 115 H 114 H Respiratory Rate 16 Blood Pressure 113/71 Pulse Oximetry 96 96 Oxygen Delivery Mechanical Ventilation Fraction of Inspired Oxygen 35 10/21/22 20:00 10/21/22 20:00 10/21/22 22:57 Temperature Pulse Rate 115 H 115 H 112 H Respiratory Rate 16 Blood Pressure Pulse Oximetry 95 95 Oxygen Delivery Mechanical Ventilation Mechanical Ventilation Fraction of Inspired Oxygen 35 35 10/21/22 22:00 10/21/22 22:00 10/22/22 00:00 Temperature 98.9 F Pulse Rate 114 H 114 H 115 H Respiratory Rate 16 Blood Pressure 104/69 Pulse Oximetry 97 Oxygen Delivery Fraction of Inspired Oxygen 10/22/22 00:00 10/22/22 00:00 10/22/22 03:11 Temperature 99.2
--- NOTE | 2022-10-22 12:37 | PCNFU ---
Nutrition Follow-Up Complete: Inadequate oral intake related to altered GI function as evidenced by recent colectomy with end colostomy. Goal: Meet estimated nutrition needs when medically able Patient is meeting current goal. We will continue current goal. Pt current nutrition is Vital AF 1.2 at 55 ml/hr Last recorded weight is 52.9 kg, up from 46 kg on admit. Bowel Motility: ostomy Labs Reviewed:Glu 133, Cr 0.5, Alb 3.0,Hct 25.7,Hgb 7.4 Meds Noted:Zosyn,Versed, Fentanyl, Miralax,Lovenox, Pepcid. Skin: WNL Additional Notes: Patient remains on mechanical vent and tube feedings of Vital AF 1.2 at 55 ml/hr and tolerating. Current tube feeding is providing 1452 kcals/91 gms protein/980 ml water. Meeting 93% caloric needs at 30 kcal/kg and 100% protein needs. Flush 30 ml q 4hours. Monitoring plan of care, weights, labs, intakes, tolerance every Friday and Friday. Follow up daily in ICU rounds
[2022-10-23] VITALS (71 sets, daily range): BP systolic 109–138; BP diastolic 62–100; PULSE 107–131; RESP 12–34; TEMP 36.8–38; O2SAT 94–100
[2022-10-23 00:06] LABS: Glucose Point of Care 113 mg/dl (65-105)
--- NOTE | 2022-10-23 00:29 | PC.NURSE ---
10/22 1945 New ostomy bag applied due to current bag leaking. Drsg removed from mid abdominal incision. Incision cleansed and left open to air.
[2022-10-23] MEDS: MIDAZOLAM 100MG/NS 100ML(*CRX) 100 MG/100 ML BAG IV CONT ×2 (02:10→22:02)
[2022-10-23] MEDS: FENTANYL 2,500MCG/NS250ML(*CRX 2,500 MCG/250 ML BAG 15 MCG IV CONT ×2 (02:12→18:47)
[2022-10-23 05:19] LABS: Alanine Aminotransferase 62 U/L (6-50); Albumin Level 3.2 g/dL (3.5-5.1); Alkaline Phosphatase 106 U/L (38-126); Anion Gap 4 mmol/L (8-16); Aspartate Amino Transferase 78 U/L (17-59); Bilirubin,Total 0.3 mg/dL (0.2-1.3); Blood Urea Nitrogen 8 mg/dL (9-20); Calcium 7.7 mg/dL (8.4-10.2); Carbon Dioxide 30 mmol/L (22-30); Chloride 97 mmol/L (98-107); Estimated CRCL calculation 119 ml/min; Estimated Glomerular Filt Rate > 60; Glucose 124 mg/dL (65-110); Phosphorus 3.2 mg/dL (2.5-4.5); Potassium 3.8 mmol/L (3.4-5.0); Sodium 131 mmol/L (137-145)
[2022-10-23 05:31] LABS: Hemoglobin 7.6 g/dL (14.0-18.0); Mean Corpuscular HGB Conc 29.2 g/dl (32-36); Mean Corpuscular Hemoglobin 23.6 pg (26-34); Mean Corpuscular Volume 80.7 fl (80-100); Mean Platelet Volume 9.8 fl (7.4-10.4); Platelet Count Result 425 k/mm3 (150-375); Red Blood Count 3.22 M/mm3 (4.6-6.20); Red Cell Distribution Width 18.6 % (11.5-14.5); White Blood Count 15.6 K/mm3 (4.5-10.0)
[2022-10-23 05:50] LABS: Alveolar/Arterial O2 Gradient 142.4 mmHg; Base Excess ABG 4.7 mEq/l (+/-2.0); Carboxyhemoglobin 0.3 % THb (0-2.0); Fractional Inspired Oxygen 35 %; HCO3 ABG 28.5 mEq/l (22.0-26.0); Methemoglobin ABG 0.1 %THb (0-1.5); Oxygen Content ABG 11.6 %vol (16.0-22.0); Oxygen Saturation ABG 93.2 % (95.0-100.0); Oxyhemoglobin 90.9 % THb (90.0-100.0); PCO2 ABG 39.1 mmHg (35.0-45.0); PO2 ABG 61.7 mmHg (80.0-100.0); PO2 FiO2 Ratio Arterial Blood 1.76 %; Reduced Hemoglobin 8.7 %THb (0-5.0); pH ABG 7.481 (7.350-7.450)
[2022-10-23 05:52] LABS: Arterial Blood Gas Ventilator rate 14 /MIN; Device VENTILATOR; Modified Allen's Test Pass; Site Drawn RIGHT BRACHIAL
[2022-10-23 05:53] LABS: Arterial Blood Gas PEEP 5 cmH2O; Arterial Blood Gas Tidal Volume 320 ml; Arterial Blood Gas Vent Mode CMV
[2022-10-23] MEDS: CENTRAL LINE FLUSH 10 ML IV PUSH ×4 (06:18→22:56)
[2022-10-23] MEDS: ENOXAPARIN 40 MG/0.4 ML SYRINGE SUB-Q (08:17)
[2022-10-23] MEDS: FAMOTIDINE 20 MG/2 ML VIAL IV PUSH ×2 (08:17→22:56)
[2022-10-23] MEDS: MINERAL OIL/WHITE PETROLATUM OINTMENT 1 APPLIC EACH EYE ×2 (08:17→22:55)
[2022-10-23] MEDS: polyethylene glycoL 3350 17 GM POWD.PACK PO (08:18)
--- NOTE | 2022-10-23 10:40 | PM.PNGS ---
Progress Note: A&P Assessment and Plan (1) Stercoral colitis: Code(s): K52.89 - Other specified noninfective gastroenteritis and colitis Status: Acute Assessment and Plan: Patient doing well from surgical standpoint. Tolerating tube feeding at goal. Incision healing well. (2) Septic shock: Code(s): A41.9 - Sepsis, unspecified organism; R65.21 - Severe sepsis with septic shock Status: Acute Assessment and Plan: Secondary to ischemic stercoral colitis vs pneumonia vs multifactorial, continue antibiotics, WBC trending down, afebrile since 10/21 (3) Acute respiratory failure: Code(s): J96.00 - Acute respiratory failure, unspecified whether with hypoxia or hypercapnia Status: Acute Assessment and Plan: On mechanical ventilator in ICU. Wean vent as tolerated per Sleever. Plan I have discussed the patient's case and plan of care with Dr. Perez. Subjective Subjective Date/Time Seen: 10/23/22 10:07 Post Op day: 6 (exploratory laparotomy, sigmoidectomy with end colostomy) Interval history: Patient seen in the ICU. He is on the mechanical ventilator and unable to answer questions. Per nursing, no acute events overnight or issues this morning. Tolerating tube feedings at goal. Ostomy functioning well. Review of Systems Review of Systems: ROS unobtainable: Yes unobtainable due to endotracheal tube Exam Const: General: ill appearing and patient obtunded (sedated on a vent) GI: Inspection: non-distended and incision (dry and lencho intact, no erthema) GI Palp: Yes Soft to palpation Auscultation: normal bowel sounds Other: Ostomy with stoma slightly prolapsed but viable and functioning well with large amount of stool in bag Urinary Catheter: Urinary Catheter: patent and draining and urine clear Neuro: General: patient obtunded (sedated on a vent) Objective Data Vital Signs Vital Signs: Vital Signs - 24 hr 10/22/22 11:25 10/22/22 12:00 10/22/22 12:00 Temperature Pulse Rate 109 H 116 H 116 H Respiratory Rate 16 Blood Pressure Pulse Oximetry 94 92 Oxygen Delivery Mechanical Ventilation Mechanical Ventilation Fraction of Inspired Oxygen 35 35 10/22/22 12:00 10/22/22 12:00 10/22/22 12:00 Temperature 99.3 F Pulse Rate 116 H 116 H 116 H Respiratory Rate 16 16 16 Blood Pressure 117/69 Pulse Oximetry 92 Oxygen Delivery Fraction of Inspired Oxygen 10/22/22 14:00 10/22/22 14:00 10/22/22 14:50 Temperature Pulse Rate 113 H 113 H 113 H Respiratory Rate 16 Blood Pressure 117/73 Pulse Oximetry 92 90 Oxygen Delivery Mechanical Ventilation Fraction of Inspired Oxygen 35 10/22/22 16:00 10/22/22 16:00 10/22/22 16:00 Temperature 98.7 F Pulse Rate 117 H 117 H 117 H Respiratory Rate 17 17 Blood Pressure 112/68 Pulse Oximetry 95 95 Oxygen Delivery Mechanical Ventilation Fraction of Inspired Oxygen 35 10/22/22 16:00 10/22/22 16:30 10/22/22 17:40 Temperature Pulse Rate 113 H 116 H 111 H Respiratory Rate 16 16 Blood Pressure Pulse Oximetry 97 Oxygen Delivery Mechanical Ventilation Fraction of Inspired Oxygen 35 10/22/22 18:00 10/22/22 18:00 10/22/22 20:00 Temperature 99.2 F Pulse Rate 122 H 117 H 128 H Respiratory Rate 17 18 Blood Pressure 117/75 112/71 Pulse Oximetry 95 95 Oxygen Delivery Fraction of Inspired Oxygen 10/22/22 20:00 10/22/22 20:00 10/22/22 20:31 Temperature Pulse Rate 128 H 128 H 132 H Respiratory Rate 18 18 Blood Pressure Pulse Oximetry 95 Oxygen Delivery Mechanical Ventilation Fraction of Inspired Oxygen 35 10/22/22 21:07 10/22/22 22:00 10/22/22 22:00 Temperature Pulse Rate 118 H 122 H 122 H Respiratory Rate 16 Blood Pressure 117/76 Pulse Oximetry 95 96 Oxygen Delivery Mechanical Ventilation Fraction of Inspired Oxygen 35 10/22/22 23:46 10/23/22 00:00 10/23/22 00:00 Temperature 98.3 F Pulse Rate
--- NOTE | 2022-10-23 11:20 | PCFNICU ---
ICU Rounding Note: Pt current nutrition is Vital AF 1.2 at 55 ml/hr. Last recorded weight is 49.9 kg. Bowel Motility: ostomy Labs Reviewed:Glu 133, Cr 0.5,Alb 3.0,Hgb 7.4,Hct 25.7 Meds Noted:Zosyn,Versed, Fentanyl, Miralax,Lovenox, Pepcid. Skin: WNL Additional Notes: Patient remains on mechanical vent and tube feedings of Vital AF 1.2 at 55 ml/hr and tolerating per nursing. Flush 30 ml q 4 hours. Agree with diet orders. Following daily in ICU rounds. Monitoring plan of care, weights, labs, intakes, tolerance every Friday and Friday.
[2022-10-23 11:56] LABS: Glucose Point of Care 123 mg/dl (65-105)
--- NOTE | 2022-10-23 13:22 | WPDINTPN ---
Progress Note: A&P Assessment and Plan (1) Acute respiratory failure: Code(s): J96.00 - Acute respiratory failure, unspecified whether with hypoxia or hypercapnia Status: Acute Assessment and Plan: Patient was intubated and placed on mechanical ventilation for general anesthesia 10/17 extubated 10/18 downgraded to step-down unit, CPT was ordered 10/19 Increased oxygen requirement overnight. Patient was hypoxic and pulling is oxygenating and biting on his restraints. He was re-intubated was unable to clear his secretions, was hypoxic on Airvo, he was also resisting suctioning for secretions. -chest x-ray this morning shows Stable airspace opacities in the mid and lower lung zones with a perihilar predominance, consistent with atelectasis versus pneumonia.. Emphysema - Patient on CMV. Currently on peep of 5, 35% FiO2 ABG reviewed Continue Zosyn (10/17) which should for aspiration pneumonia (2) Stercoral colitis: Code(s): K52.89 - Other specified noninfective gastroenteritis and colitis Status: Acute Assessment and Plan: Ischemic stercoral colitis secondary to chronic constipation and dilation of sigmoid colon 10/17/2022 status post Exploratory laparotomy, sigmoid colectomy, creation of end colostomy Brown liquid output from ostomy and ostomy appears slightly prolapsed, surgery aware Pain control MiraLax and Dulcolax for chronic constipation Continue tube feeds and advance to goal (3) Septic shock: Code(s): A41.9 - Sepsis, unspecified organism; R65.21 - Severe sepsis with septic shock Status: Acute Assessment and Plan: Secondary to ischemic colitis and pneumonia Blood cultures are growing 1/2 Leuconostoc mesenteroides ssp cremoris which is likely contaminant Off Levophed WBCs improving as patient is afebrile this morning Continue IV fluids Continue Zosyn (4) Influenza A: Code(s): J10.1 - Influenza due to other identified influenza virus with other respiratory manifestations Status: Acute Assessment and Plan: Patient tested positive for influenza A. Not sure if it is symptomatic as patient is unable to provide history Completed a five-day course of Tamiflu (5) Electrolyte abnormality: Code(s): E87.8 - Other disorders of electrolyte and fluid balance, not elsewhere classified Status: Acute Assessment and Plan: Potassium normalized after replacement (6) Anemia: Code(s): D64.9 - Anemia, unspecified Status: Acute Assessment and Plan: Hemoglobin has been trending down No obvious signs of bleeding Hemoglobin has been stable Transfuse if hemoglobin < 7.0 Coags normal Plan DVT prophylaxis -Lovenox Stress ulcer prophylaxis -Pepcid Nutrition - tube feeds, tolerating Code Status - Full Code 10/19 I spoke to patient's sister Samia by phone and updated her with patient's current status including re-intubation from worsening respiratory failure and current treatment. I answered all her questions Total Critical Care Time - 34 minutes Due to a high probability of clinically significant, life threatening deterioration, the patient required my highest level of preparedness to intervene emergently and I personally spent this critical care time directly and personally managing the patient. This critical care time included obtaining a history; examining the patient; pulse oximetry; ordering and review of studies; arranging urgent treatment with development of a management plan; evaluation of patient's response to treatment; frequent reassessment; and discussions with other providers. It was exclusive of separately billable procedures and treating other patients and teaching time. Please see Assessment and Plan section and the rest of the note for further information on patient assessment and treatment Subjective Date/time seen: 10/23/22 13:22 Interval history: Reason for consult: 10/17/2022: Status post Exploratory la
[2022-10-23 18:26] LABS: Glucose Point of Care 120 mg/dl (65-105)
[2022-10-23] MEDS: ACETAMINOPHEN ELIXIR 325 MG/10.15 ML UDC 650 MG PO (18:46)
[2022-10-24] VITALS (83 sets, daily range): BP systolic 108–136; BP diastolic 65–82; PULSE 102–134; RESP 14–23; TEMP 37.5–37.7; O2SAT 91–100
[2022-10-24 00:56] LABS: Glucose Point of Care 119 mg/dl (65-105)
[2022-10-24] MEDS: CENTRAL LINE FLUSH 10 ML IV PUSH ×4 (05:43→20:05)
[2022-10-24 06:05] LABS: Alveolar/Arterial O2 Gradient 116.1 mmHg; Base Excess ABG 7.3 mEq/l (+/-2.0); Carboxyhemoglobin 0.5 % THb (0-2.0); Fractional Inspired Oxygen 35 %; HCO3 ABG 32.3 mEq/l (22.0-26.0); Methemoglobin ABG 0.1 %THb (0-1.5); Oxygen Content ABG 10.5 %vol (16.0-22.0); Oxygen Saturation ABG 95.4 % (95.0-100.0); Oxyhemoglobin 93.9 % THb (90.0-100.0); PCO2 ABG 49.5 mmHg (35.0-45.0); PO2 ABG 75.9 mmHg (80.0-100.0); PO2 FiO2 Ratio Arterial Blood 2.17 %; Reduced Hemoglobin 5.5 %THb (0-5.0); Total Hemoglobin 7.9 g/dL (12.0-18.0); pH ABG 7.433 (7.350-7.450)
[2022-10-24 06:06] LABS: Arterial Blood Gas PEEP 5 cmH2O; Arterial Blood Gas Tidal Volume 320 ml; Arterial Blood Gas Vent Mode CMV; Arterial Blood Gas Ventilator rate 14 /MIN; Device VENTILATOR; Modified Allen's Test Pass; Site Drawn RIGHT RADIAL
[2022-10-24 06:46] LABS: Alanine Aminotransferase 147 U/L (6-50); Albumin Level 3.1 g/dL (3.5-5.1); Alkaline Phosphatase 116 U/L (38-126); Anion Gap 1 mmol/L (8-16); Aspartate Amino Transferase 169 U/L (17-59); Bilirubin,Total 0.2 mg/dL (0.2-1.3); Blood Urea Nitrogen 11 mg/dL (9-20); Calcium 7.8 mg/dL (8.4-10.2); Carbon Dioxide 32 mmol/L (22-30); Chloride 99 mmol/L (98-107); Estimated CRCL calculation 111 ml/min; Estimated Glomerular Filt Rate > 60; Glucose 121 mg/dL (65-110); Magnesium 2.2 mg/dL (1.6-2.3); Phosphorus 2.9 mg/dL (2.5-4.5); Potassium 4.2 mmol/L (3.4-5.0); Sodium 132 mmol/L (137-145)
[2022-10-24 07:03] LABS: Hemoglobin 7.6 g/dL (14.0-18.0); Mean Corpuscular HGB Conc 29.2 g/dl (32-36); Mean Corpuscular Volume 78.8 fl (80-100); Mean Platelet Volume 10.7 fl (7.4-10.4); Platelet Count Result 474 k/mm3 (150-375); Red Cell Distribution Width 18.8 % (11.5-14.5); White Blood Count 15.5 K/mm3 (4.5-10.0)
[2022-10-24] MEDS: ENOXAPARIN 40 MG/0.4 ML SYRINGE SUB-Q (08:37)
[2022-10-24] MEDS: FAMOTIDINE 20 MG/2 ML VIAL IV PUSH ×2 (08:37→20:01)
[2022-10-24] MEDS: MINERAL OIL/WHITE PETROLATUM OINTMENT 1 APPLIC EACH EYE ×2 (08:37→20:01)
[2022-10-24 08:45] LABS: Hepatitis B Surface Antigen Negative (Negative)
[2022-10-24 08:51] LABS: HAV RESULT Negative (Negative); Hepatitis B Core IgM Result Negative (Negative)
[2022-10-24] MEDS: polyethylene glycoL 3350 17 GM POWD.PACK PO (08:51)
[2022-10-24 09:02] LABS: Hepatitis C Virus Antibody Negative (Negative)
--- NOTE | 2022-10-24 11:33 | PM.PNGS ---
Progress Note: A&P Assessment and Plan (1) Stercoral colitis: Code(s): K52.89 - Other specified noninfective gastroenteritis and colitis Status: Acute Assessment and Plan: Patient doing well from surgical standpoint. Tolerating tube feeding at goal. Incision healing well. LFTs noted to be up slightly yesterday and today, RUQ US this morning normal. (2) Septic shock: Code(s): A41.9 - Sepsis, unspecified organism; R65.21 - Severe sepsis with septic shock Status: Acute Assessment and Plan: Secondary to ischemic stercoral colitis vs pneumonia vs multifactorial, continue antibiotics, WBC still at 15,000 today, started to have a low grade fever yesterday and this morning. (3) Acute respiratory failure: Code(s): J96.00 - Acute respiratory failure, unspecified whether with hypoxia or hypercapnia Status: Acute Assessment and Plan: On mechanical ventilator in ICU. Wean vent as tolerated per Or Rn. Plan I have discussed the patient's case and plan of care with Dr. Perez. Subjective Subjective Date/Time Seen: 10/24/22 11:33 Post Op day: 7 (exploratory laparotomy, sigmoidectomy with end colostomy) Interval history: Patient seen in the ICU. He is on the mechanical ventilator and unable to answer questions. Per nursing, no acute events overnight or issues this morning. Tolerating tube feedings at goal. Ostomy functioning well. Review of Systems Review of Systems: ROS unobtainable: Yes unobtainable due to endotracheal tube Exam Const: General: ill appearing Orientation/consciousness: patient obtunded (sedated on a vent) GI: Inspection: non-distended and incision (dry and lencho intact, no erthema) GI Palp: Yes Soft to palpation Auscultation: normal bowel sounds Other: Ostomy with stoma slightly prolapsed but viable and functioning well with large amount of stool in bag Urinary Catheter: Urinary Catheter: patent and draining and urine clear Neuro: General: patient obtunded (sedated on a vent) Extrem: General: normal to inspection Objective Data Vital Signs Vital Signs: Vital Signs - 24 hr 10/23/22 11:50 10/23/22 12:00 10/23/22 12:00 Temperature Pulse Rate 119 H 120 H 120 H Respiratory Rate 14 Blood Pressure Pulse Oximetry 99 97 Oxygen Delivery Mechanical Ventilation Mechanical Ventilation Fraction of Inspired Oxygen 35 35 10/23/22 14:00 10/23/22 12:00 10/23/22 14:04 Temperature 99.7 F H Pulse Rate 120 H 120 H 129 H Respiratory Rate 15 Blood Pressure 121/71 Pulse Oximetry 97 97 Oxygen Delivery Mechanical Ventilation Fraction of Inspired Oxygen 35 10/23/22 11:46 10/23/22 13:09 10/23/22 13:15 Temperature Pulse Rate 123 H 117 H 116 H Respiratory Rate 16 15 15 Blood Pressure Pulse Oximetry 98 96 97 Oxygen Delivery Fraction of Inspired Oxygen 10/23/22 14:00 10/23/22 16:00 10/23/22 14:15 Temperature Pulse Rate 128 H 122 H 128 H Respiratory Rate 17 19 16 Blood Pressure 138/100 H Pulse Oximetry 95 98 96 Oxygen Delivery Mechanical Ventilation Fraction of Inspired Oxygen 35 10/23/22 15:22 10/23/22 16:37 10/23/22 16:51 Temperature Pulse Rate 127 H 119 H 118 H Respiratory Rate 34 H 15 Blood Pressure Pulse Oximetry 97 97 Oxygen Delivery Mechanical Ventilation Fraction of Inspired Oxygen 35 10/23/22 18:00 10/23/22 17:08 10/23/22 17:15 Temperature Pulse Rate 109 H 115 H 117 H Respiratory Rate 15 14 Blood Pressure Pulse Oximetry 97 98 Oxygen Delivery Fraction of Inspired Oxygen 10/23/22 17:30 10/23/22 17:45 10/23/22 18:00 Temperature Pulse Rate 113 H 112 H 109 H Respiratory Rate 14 14 14 Blood Pressure 109/69 Pulse Oximetry 97 98 98 Oxygen Delivery Fraction of Inspired Oxygen 10/23/22 18:01 10/23/22 18:15 10/23/22 18:46 Temperature 100.4 F H Pulse Rate 108 H 107 H Respiratory Rate 14 14 Blood Pressure Pulse Oximetry 98 98
--- NOTE | 2022-10-24 11:55 | PCFNICU ---
ICU Rounding Note: Pt current nutrition is Vital AF 1.2 at 55 ml/hr. Last recorded weight is 49.5 kg. Bowel Motility:ostomy Labs Reviewed:Glu 121, Cr 0.5,Alb 3.1,Na 132, Hct 6.0,Hgb 7.6 Meds Noted:Fentanyl, Versed, Zosyn, Pepcid, Miralax. Skin: WNL Additional Notes: Patient remains on mechanical vent and tube feedings of Vital AF 1.2 at 55 ml/hr and tolerating per nursing. Flush 30 ml q 4 hours. Agree with diet orders. Following daily in ICU rounds. Monitoring plan of care, weights, labs, intakes, tolerance every Friday and Friday.
[2022-10-24] MEDS: FENTANYL 2,500MCG/NS250ML(*CRX 2,500 MCG/250 ML BAG 15 MCG IV CONT (12:15)
[2022-10-24] MEDS: FUROSEMIDE INJ 40 MG/4 ML VIAL IV PUSH (12:18)
--- NOTE | 2022-10-24 13:22 | WPDINTPN ---
Progress Note: A&P Assessment and Plan (1) Acute respiratory failure: Code(s): J96.00 - Acute respiratory failure, unspecified whether with hypoxia or hypercapnia Status: Acute Assessment and Plan: Patient was intubated and placed on mechanical ventilation for general anesthesia 10/17 extubated 10/18 downgraded to step-down unit, CPT was ordered 10/19 Increased oxygen requirement overnight. Patient was hypoxic and pulling is oxygenating and biting on his restraints. He was re-intubated was unable to clear his secretions, was hypoxic on Airvo, he was also resisting suctioning for secretions. -chest x-ray this morning shows Stable airspace opacities of the mid and lower lung zones, consistent with atelectasis versus pneumonia - Patient on CMV. Currently on peep of 5, 35% FiO2 ABG reviewed Continue Zosyn (10/17) which should cover for aspiration pneumonia (2) Stercoral colitis: Code(s): K52.89 - Other specified noninfective gastroenteritis and colitis Status: Acute Assessment and Plan: Ischemic stercoral colitis secondary to chronic constipation and dilation of sigmoid colon 10/17/2022 status post Exploratory laparotomy, sigmoid colectomy, creation of end colostomy Brown liquid output from ostomy and ostomy appears slightly prolapsed, surgery aware Pain control MiraLax and Dulcolax for chronic constipation Continue tube feeds and advance to goal (3) Septic shock: Code(s): A41.9 - Sepsis, unspecified organism; R65.21 - Severe sepsis with septic shock Status: Acute Assessment and Plan: Secondary to ischemic colitis and pneumonia Blood cultures are growing 1/2 Leuconostoc mesenteroides ssp cremoris which is likely contaminant Off Levophed WBCs improving as patient is afebrile this morning Continue IV fluids Continue Zosyn (4) Influenza A: Code(s): J10.1 - Influenza due to other identified influenza virus with other respiratory manifestations Status: Acute Assessment and Plan: Patient tested positive for influenza A. Not sure if it is symptomatic as patient is unable to provide history Completed a five-day course of Tamiflu (5) Electrolyte abnormality: Code(s): E87.8 - Other disorders of electrolyte and fluid balance, not elsewhere classified Status: Acute Assessment and Plan: Potassium normalized after replacement (6) Anemia: Code(s): D64.9 - Anemia, unspecified Status: Acute Assessment and Plan: Hemoglobin has been trending down No obvious signs of bleeding Hemoglobin has been stable Transfuse if hemoglobin < 7.0 Coags normal (7) Elevated LFTs: Code(s): R79.89 - Other specified abnormal findings of blood chemistry Status: Acute Assessment and Plan: Right upper quadrant ultrasound with no etiology for abnormal liver function tests -hepatitis panel was negative -continue to monitor liver enzymes Plan DVT prophylaxis -Lovenox Stress ulcer prophylaxis -Pepcid Nutrition - tube feeds, tolerating Code Status - Full Code 10/19 Dr Esteban spoke to patient's sister Samia by phone and updated her with patient's current status including re-intubation from worsening respiratory failure and current treatment. I answered all her questions Total Critical Care Time - 33 minutes Due to a high probability of clinically significant, life threatening deterioration, the patient required my highest level of preparedness to intervene emergently and I personally spent this critical care time directly and personally managing the patient. This critical care time included obtaining a history; examining the patient; pulse oximetry; ordering and review of studies; arranging urgent treatment with development of a management plan; evaluation of patient's response to treatment; frequent reassessment; and discussions with other providers. It was exclusive of separately billable procedures and treating other patients and t
[2022-10-24] MEDS: MIDAZOLAM 100MG/NS 100ML(*CRX) 100 MG/100 ML BAG IV CONT (15:07)
[2022-10-25] VITALS (30 sets, daily range): BP systolic 102–140; BP diastolic 68–94; PULSE 76–130; RESP 14–20; TEMP 36.6–38.2; O2SAT 90–100
[2022-10-25 00:44] LABS: Glucose Point of Care 134 mg/dl (65-105)
[2022-10-25] MEDS: FENTANYL 2,500MCG/NS250ML(*CRX 2,500 MCG/250 ML BAG 17.5 MCG IV CONT ×2 (03:31→17:49)
[2022-10-25] MEDS: CENTRAL LINE FLUSH 10 ML IV PUSH ×4 (05:14→21:32)
[2022-10-25 05:29] LABS: Alveolar/Arterial O2 Gradient 88.2 mmHg; Base Excess ABG 8.9 mEq/l (+/-2.0); Fractional Inspired Oxygen 35 %; HCO3 ABG 34.1 mEq/l (22.0-26.0); Oxygen Content ABG 12.3 %vol (16.0-22.0); Oxygen Saturation ABG 97.8 % (95.0-100.0); Oxyhemoglobin 97.2 % THb (90.0-100.0); PCO2 ABG 50.6 mmHg (35.0-45.0); PO2 ABG 102.5 mmHg (80.0-100.0); PO2 FiO2 Ratio Arterial Blood 2.93 %; Total Hemoglobin 8.9 g/dL (12.0-18.0); pH ABG 7.446 (7.350-7.450)
[2022-10-25 05:38] LABS: Hematocrit 26.5 % (42.0-52.0); Hemoglobin 7.7 g/dL (14.0-18.0); Mean Corpuscular HGB Conc 29.1 g/dl (32-36); Mean Corpuscular Hemoglobin 23.3 pg (26-34); Mean Corpuscular Volume 80.3 fl (80-100); Mean Platelet Volume 10.8 fl (7.4-10.4); Platelet Count Result 524 k/mm3 (150-375); Red Cell Distribution Width 18.9 % (11.5-14.5)
[2022-10-25 05:41] LABS: Alanine Aminotransferase 246 U/L (6-50); Albumin Level 3.5 g/dL (3.5-5.1); Alkaline Phosphatase 167 U/L (38-126); Anion Gap 6 mmol/L (8-16); Aspartate Amino Transferase 177 U/L (17-59); Bilirubin,Total 0.3 mg/dL (0.2-1.3); Blood Urea Nitrogen 16 mg/dL (9-20); Calcium 8.4 mg/dL (8.4-10.2); Carbon Dioxide 33 mmol/L (22-30); Chloride 96 mmol/L (98-107); Estimated CRCL calculation 113 ml/min; Estimated Glomerular Filt Rate > 60; Glucose 156 mg/dL (65-110); Potassium 3.8 mmol/L (3.4-5.0); Sodium 135 mmol/L (137-145)
[2022-10-25 05:52] LABS: Device VENTILATOR; Modified Allen's Test Pass; Site Drawn RIGHT RADIAL
[2022-10-25 05:53] LABS: Arterial Blood Gas PEEP 5 cmH2O; Arterial Blood Gas Tidal Volume 320 ml; Arterial Blood Gas Vent Mode CMV; Arterial Blood Gas Ventilator rate 14 /MIN
[2022-10-25] MEDS: MIDAZOLAM 100MG/NS 100ML(*CRX) 100 MG/100 ML BAG 6 MG IV CONT (06:32)
[2022-10-25 08:54] LABS: Glucose Point of Care 143 mg/dl (65-105)
[2022-10-25] MEDS: polyethylene glycoL 3350 17 GM POWD.PACK PO (09:38)
[2022-10-25] MEDS: ENOXAPARIN 40 MG/0.4 ML SYRINGE SUB-Q (09:38)
[2022-10-25] MEDS: MINERAL OIL/WHITE PETROLATUM OINTMENT 1 APPLIC EACH EYE ×2 (09:38→21:32)
[2022-10-25] MEDS: FAMOTIDINE 20 MG/2 ML VIAL IV PUSH ×2 (09:38→21:31)
--- NOTE | 2022-10-25 11:17 | PM.PNGS ---
Progress Note: A&P Assessment and Plan (1) Stercoral colitis: Code(s): K52.89 - Other specified noninfective gastroenteritis and colitis Status: Acute Assessment and Plan: exam benign, +bowel fxn, yin TFs at goal, increasing leukocytosis, will get CT to r/o intraabdominal source Subjective Subjective Date/Time Seen: 10/25/22 11:17 no acute issues, still intubated, sedated Review of Systems Review of Systems: ROS unobtainable: Yes unobtainable due to endotracheal tube and unobtainable due to mental status Exam Narrative: intubated, sedated Resp: Auscultation: diminished lung sounds Cardio: Rate: tachycardic Rhythm: regular rhythm GI: Inspection: normal to inspection, non-distended and incision GI Palp: No abdominal tenderness and Yes Soft to palpation Other: ostomy - +fxn, wound looks good, no s/s infection Objective Data Vital Signs Vital Signs: Vital Signs - 24 hr 10/24/22 12:00 10/24/22 12:00 10/24/22 14:00 Temperature Pulse Rate 104 H 134 H Respiratory Rate 14 Blood Pressure Pulse Oximetry 99 Oxygen Delivery Mechanical Ventilation Fraction of Inspired Oxygen 35 35 10/24/22 11:27 10/24/22 12:15 10/24/22 12:00 Temperature Pulse Rate 126 H 126 H 110 H Respiratory Rate 23 H 23 H Blood Pressure Pulse Oximetry 95 Oxygen Delivery Mechanical Ventilation Fraction of Inspired Oxygen 35 10/24/22 14:51 10/24/22 15:07 10/24/22 15:07 Temperature Pulse Rate 118 H 123 H 123 H Respiratory Rate 14 14 Blood Pressure Pulse Oximetry 95 Oxygen Delivery Mechanical Ventilation Fraction of Inspired Oxygen 35 10/24/22 11:43 10/24/22 12:30 10/24/22 12:45 Temperature Pulse Rate 118 H 111 H 116 H Respiratory Rate 17 15 14 Blood Pressure Pulse Oximetry 94 96 96 Oxygen Delivery Fraction of Inspired Oxygen 10/24/22 14:04 10/24/22 14:15 10/24/22 14:30 Temperature Pulse Rate 123 H 126 H 126 H Respiratory Rate 14 14 14 Blood Pressure Pulse Oximetry 95 95 96 Oxygen Delivery Fraction of Inspired Oxygen 10/24/22 14:45 10/24/22 17:13 10/24/22 16:00 Temperature Pulse Rate 125 H 128 H 128 H Respiratory Rate 15 16 Blood Pressure Pulse Oximetry 97 95 93 Oxygen Delivery Mechanical Ventilation Mechanical Ventilation Fraction of Inspired Oxygen 35 35 10/24/22 16:00 10/24/22 16:00 10/24/22 16:00 Temperature Pulse Rate 128 H 130 H Respiratory Rate 15 Blood Pressure 131/76 Pulse Oximetry 95 Oxygen Delivery Fraction of Inspired Oxygen 35 10/24/22 16:01 10/24/22 16:33 10/24/22 17:03 Temperature Pulse Rate 130 H 131 H 127 H Respiratory Rate 17 15 15 Blood Pressure Pulse Oximetry 93 93 93 Oxygen Delivery Fraction of Inspired Oxygen 10/24/22 18:00 10/24/22 18:00 10/24/22 19:52 Temperature Pulse Rate 128 H 128 H 133 H Respiratory Rate 15 22 H Blood Pressure 132/75 Pulse Oximetry 94 Oxygen Delivery Fraction of Inspired Oxygen 10/24/22 19:52 10/24/22 20:22 10/24/22 20:00 Temperature Pulse Rate 133 H 134 H 133 H Respiratory Rate 22 H 19 Blood Pressure Pulse Oximetry Oxygen Delivery Fraction of Inspired Oxygen 10/24/22 20:00 10/24/22 20:00 10/24/22 20:00 Temperature 37.5 C Pulse Rate 134 H Respiratory Rate 17 Blood Pressure 136/81 Pulse Oximetry 98 98 Oxygen Delivery Mechanical Ventilation Fraction of Inspired Oxygen 35 35 10/24/22 22:00 10/24/22 22:00 10/25/22 00:00 Temperature 38.2 C H Pulse Rate 127 H 127 H 128 H Respiratory Rate 14 14 Blood Pressure 119/77 116/72 Pulse Oximetry 93 96 Oxygen Delivery Fraction of Inspired Oxygen 10/25/22 00:00 10/25/22 00:00 10/25/22 00:00 Temperature Pulse Rate 128 H Respiratory Rate Blood Pressure Pulse Oximetry 96 Oxygen Delivery Mechanical Ventilation Fraction of Inspired Oxygen 35 35 10/25/22 00:00 10/25/22 00:00 12
[2022-10-25 11:29] LABS: Glucose Point of Care 126 mg/dl (65-105)
--- NOTE | 2022-10-25 12:06 | PCNFU ---
Nutrition Follow-Up Complete: Inadequate oral intake related to altered GI function as evidenced by recent colectomy with end colostomy. Goal:Meet estimated nutrition needs when medically able Patient is progressing towards goal. We will continue current goal. Pt current nutrition is Vital AF 1.2 at 55 ml/hr. Last recorded weight is 50.3 kg. Bowel Motility:ostomy Labs Reviewed: Glu 156, Cr 0.5, Na 135 Meds Noted:Fentanyl, Versed, Zosyn, Pepcid, Miralax. Skin: WNL Additional Notes: Patient remains on mechanical vent. Tube feedings on hold for CT scan. Tube feedings at goal rate are providing 1452 kcals/91 gms protein/ 981 ml water. Meeting 93% caloric needs and 100% protein needs at 30 kcal/kg. 30 ml flush q 4 hours. Agree with diet orders. Monitoring plan of care, weights, labs, intakes, tolerance every Friday and Friday. Follow up daily in ICU rounds
--- NOTE | 2022-10-25 14:44 | WPDINTPN ---
Progress Note: A&P Assessment and Plan (1) Acute respiratory failure: Code(s): J96.00 - Acute respiratory failure, unspecified whether with hypoxia or hypercapnia Status: Acute Assessment and Plan: Patient was intubated and placed on mechanical ventilation for general anesthesia 10/17 extubated 10/18 downgraded to step-down unit, CPT was ordered 10/19 Increased oxygen requirement overnight. Patient was hypoxic and pulling is oxygenating and biting on his restraints. He was re-intubated was unable to clear his secretions, was hypoxic on Airvo, he was also resisting suctioning for secretions. -chest x-ray this morning shows Stable airspace opacities of the mid and lower lung zones, consistent with atelectasis versus pneumonia - Patient on CMV. Currently on peep of 5, 35% FiO2 ABG reviewed (2) Stercoral colitis: Code(s): K52.89 - Other specified noninfective gastroenteritis and colitis Status: Acute Assessment and Plan: Ischemic stercoral colitis secondary to chronic constipation and dilation of sigmoid colon 10/17/2022 status post Exploratory laparotomy, sigmoid colectomy, creation of end colostomy Brown liquid output from ostomy and ostomy appears slightly prolapsed, surgery aware Pain control MiraLax and Dulcolax for chronic constipation -will hold tube feeds, NG to low intermittent suction (3) Septic shock: Code(s): A41.9 - Sepsis, unspecified organism; R65.21 - Severe sepsis with septic shock Status: Acute Assessment and Plan: Secondary to ischemic colitis and pneumonia Blood cultures are growing 1/2 Leuconostoc mesenteroides ssp cremoris which is likely contaminant Off Levophed WBCs improving as patient is afebrile this morning Continue IV fluids 10/25/2022 CT scan of the abdomen: ?Interval partial colectomy. New development of gas collection with surrounding phlegmonous change adjacent to the anastomotic site, suspicious for developing infection with possible leak.? Small pleural effusions. Bibasilar dependent airspace disease which may represent atelectasis or developing pneumonia. Discussed with surgery, recommended percutaneous drainage by IR -discontinue Zosyn, will switch to imipenem and vancomycin (10/25) (4) Influenza A: Code(s): J10.1 - Influenza due to other identified influenza virus with other respiratory manifestations Status: Acute Assessment and Plan: Patient tested positive for influenza A. Not sure if it is symptomatic as patient is unable to provide history Completed a five-day course of Tamiflu (5) Electrolyte abnormality: Code(s): E87.8 - Other disorders of electrolyte and fluid balance, not elsewhere classified Status: Acute Assessment and Plan: Potassium normalized after replacement (6) Anemia: Code(s): D64.9 - Anemia, unspecified Status: Acute Assessment and Plan: Hemoglobin has been trending down No obvious signs of bleeding Hemoglobin has been stable Transfuse if hemoglobin < 7.0 Coags normal (7) Elevated LFTs: Code(s): R79.89 - Other specified abnormal findings of blood chemistry Status: Acute Assessment and Plan: Right upper quadrant ultrasound with no etiology for abnormal liver function tests -hepatitis panel was negative -continue to monitor liver enzymes Plan DVT prophylaxis -Lovenox Stress ulcer prophylaxis -Pepcid Nutrition - tube feeds, tolerating Discussed with surgery Code Status - Full Code Total Critical Care Time - 33 minutes Due to a high probability of clinically significant, life threatening deterioration, the patient required my highest level of preparedness to intervene emergently and I personally spent this critical care time directly and personally managing the patient. This critical care time included obtaining a history; examining the patient; pulse oximetry; ordering and review of studies; arranging urgent treatment with
[2022-10-25 17:48] LABS: Glucose Point of Care 102 mg/dl (65-105)
[2022-10-25] MEDS: LORazepam INJ (*CRX) 2 MG/ML VIAL IV PUSH (18:48)
[2022-10-25] MEDS: MIDAZOLAM 100MG/NS 100ML(*CRX) 100 MG/100 ML BAG 8 MG IV CONT (22:49)
[2022-10-25 23:12] LABS: Glucose Point of Care 130 mg/dl (65-105)
[2022-10-26] VITALS (37 sets, daily range): BP systolic 100–116; BP diastolic 59–79; PULSE 90–112; RESP 1–16; TEMP 37–37.2; O2SAT 95–100
[2022-10-26 04:47] LABS: Hematocrit 23.1 % (42.0-52.0); Mean Corpuscular HGB Conc 29.4 g/dl (32-36); Mean Corpuscular Hemoglobin 23.7 pg (26-34); Mean Corpuscular Volume 80.5 fl (80-100); Platelet Count Result 603 k/mm3 (150-375); Red Blood Count 2.87 M/mm3 (4.6-6.20); Red Cell Distribution Width 19.2 % (11.5-14.5); White Blood Count 20.8 K/mm3 (4.5-10.0)
[2022-10-26] MEDS: LORazepam INJ (*CRX) 2 MG/ML VIAL IV PUSH (04:55)
[2022-10-26 04:57] LABS: Alanine Aminotransferase 205 U/L (6-50); Albumin Level 3.4 g/dL (3.5-5.1); Alkaline Phosphatase 157 U/L (38-126); Anion Gap 6 mmol/L (8-16); Aspartate Amino Transferase 118 U/L (17-59); Bilirubin,Total 0.3 mg/dL (0.2-1.3); Blood Urea Nitrogen 12 mg/dL (9-20); Calcium 8.3 mg/dL (8.4-10.2); Carbon Dioxide 31 mmol/L (22-30); Chloride 97 mmol/L (98-107); Estimated CRCL calculation 113 ml/min; Estimated Glomerular Filt Rate > 60; Glucose 104 mg/dL (65-110); Potassium 3.9 mmol/L (3.4-5.0); Sodium 134 mmol/L (137-145)
[2022-10-26 05:05] LABS: Hemoglobin 6.8 g/dL (14.0-18.0)
[2022-10-26 06:15] LABS: Alveolar/Arterial O2 Gradient 12.8 mmHg; Base Excess ABG 6.7 mEq/l (+/-2.0); HCO3 ABG 31.3 mEq/l (22.0-26.0); Oxygen Content ABG 10.7 %vol (16.0-22.0); Oxygen Saturation ABG 96.6 % (95.0-100.0); Oxyhemoglobin 95.4 % THb (90.0-100.0); PCO2 ABG 45.2 mmHg (35.0-45.0); PO2 ABG 82.8 mmHg (80.0-100.0); PO2 FiO2 Ratio Arterial Blood 3.94 %; Total Hemoglobin 7.9 g/dL (12.0-18.0); pH ABG 7.458 (7.350-7.450)
[2022-10-26 06:17] LABS: Arterial Blood Gas PEEP 5 cmH2O; Arterial Blood Gas Tidal Volume 320 ml; Arterial Blood Gas Vent Mode CMV; Arterial Blood Gas Ventilator rate 14 /MIN; Device VENTILATOR; Fractional Inspired Oxygen 40 %; Modified Allen's Test Pass; Site Drawn LEFT RADIAL
[2022-10-26] MEDS: CENTRAL LINE FLUSH 10 ML IV PUSH ×4 (06:19→20:30)
[2022-10-26] MEDS: FENTANYL 2,500MCG/NS250ML(*CRX 2,500 MCG/250 ML BAG 20 MCG IV CONT ×2 (06:20→18:58)
[2022-10-26] MEDS: SODIUM CHLORIDE 0.9% IV 250 ML 30 ML IV CONT (08:55)
[2022-10-26] MEDS: MINERAL OIL/WHITE PETROLATUM OINTMENT 1 APPLIC EACH EYE ×2 (08:56→20:29)
[2022-10-26] MEDS: FAMOTIDINE 20 MG/2 ML VIAL IV PUSH ×2 (08:57→20:29)
[2022-10-26] MEDS: polyethylene glycoL 3350 17 GM POWD.PACK PO (09:00)
[2022-10-26] MEDS: MIDAZOLAM 100MG/NS 100ML(*CRX) 100 MG/100 ML BAG 8 MG IV CONT ×2 (10:51→23:51)
[2022-10-26] MEDS: SCOPOLAMINE 1.5 MG PATCH TRANSDERM (11:24)
[2022-10-26 12:24] LABS: Glucose Point of Care 115 mg/dl (65-105)
--- NOTE | 2022-10-26 13:34 | WPDINTPN ---
Progress Note: A&P Assessment and Plan (1) Acute respiratory failure: Code(s): J96.00 - Acute respiratory failure, unspecified whether with hypoxia or hypercapnia Status: Acute Assessment and Plan: Patient was intubated and placed on mechanical ventilation for general anesthesia 10/17 extubated 10/18 downgraded to step-down unit, CPT was ordered 10/19 Increased oxygen requirement overnight. Patient was hypoxic and pulling is oxygenating and biting on his restraints. He was re-intubated was unable to clear his secretions, was hypoxic on Airvo, he was also resisting suctioning for secretions. -chest x-ray this morning shows Bibasilar infiltrates may represent atelectasis and/or pneumonia.:? Endotracheal tube just above the chel. Recommend retraction approximately 3 cm -10/26: endotracheal tube was retracted - Patient on CMV. Currently on peep of 5, 40% FiO2 ABG reviewed Requiring increasing amount of fentanyl Versed infusion (2) Stercoral colitis: Code(s): K52.89 - Other specified noninfective gastroenteritis and colitis Status: Acute Assessment and Plan: Ischemic stercoral colitis secondary to chronic constipation and dilation of sigmoid colon 10/17/2022 status post Exploratory laparotomy, sigmoid colectomy, creation of end colostomy Brown liquid output from ostomy and ostomy appears slightly prolapsed, surgery aware Pain control MiraLax and Dulcolax for chronic constipation -will hold tube feeds, NG/OG to low intermittent suction (3) Septic shock: Code(s): A41.9 - Sepsis, unspecified organism; R65.21 - Severe sepsis with septic shock Status: Acute Assessment and Plan: Secondary to ischemic colitis and pneumonia Blood cultures are growing 1/2 Leuconostoc mesenteroides ssp cremoris which is likely contaminant Off Levophed Leukocytosis improving Place on maintenance IV fluids since patient off tube feeds 10/25/2022 CT scan of the abdomen: ?Interval partial colectomy. New development of gas collection with surrounding phlegmonous change adjacent to the anastomotic site, suspicious for developing infection with possible leak.? Small pleural effusions. Bibasilar dependent airspace disease which may represent atelectasis or developing pneumonia. 10/25/[address]-guided abscess drainage adjacent Valorie pouch with catheter placement -discontinue Zosyn, will switch to imipenem and vancomycin (10/25) (4) Influenza A: Code(s): J10.1 - Influenza due to other identified influenza virus with other respiratory manifestations Status: Acute Assessment and Plan: Patient tested positive for influenza A. Not sure if it is symptomatic as patient is unable to provide history Completed a five-day course of Tamiflu (5) Electrolyte abnormality: Code(s): E87.8 - Other disorders of electrolyte and fluid balance, not elsewhere classified Status: Acute Assessment and Plan: Potassium normalized after replacement (6) Anemia: Code(s): D64.9 - Anemia, unspecified Status: Acute Assessment and Plan: Hemoglobin has been trending down No obvious signs of bleeding Hemoglobin has been stable Transfuse if hemoglobin < 7.0 10/26/2022: Hemoglobin 6.8 this morning, 1 unit of packed RBCs being transfused Will repeat coags in the morning (7) Elevated LFTs: Code(s): R79.89 - Other specified abnormal findings of blood chemistry Status: Acute Assessment and Plan: Right upper quadrant ultrasound with no etiology for abnormal liver function tests -hepatitis panel was negative -LFTs trending down, continue to monitor (8) Intra-abdominal abscess: Code(s): K65.1 - Peritoneal abscess Status: Acute Assessment and Plan: CT scan of the abdomen and pelvis as above -10/25/[address]-guided abscess drainage adjacent Valorie pouch with catheter placement -surgery following the patient -antibioti
[2022-10-26] MEDS: SODIUM CHLORIDE 0.9% IV 1,000 ML 75 ML IV CONT (14:40)
--- NOTE | 2022-10-26 15:08 | PM.IMPN ---
Progress Note: A&P Assessment and Plan (1) Acute respiratory failure: Code(s): J96.00 - Acute respiratory failure, unspecified whether with hypoxia or hypercapnia Status: Acute Assessment and Plan: Patient was intubated and placed on mechanical ventilation for general anesthesia 10/17 extubated 10/18 downgraded to step-down unit, CPT was ordered 10/19 Increased oxygen requirement overnight. Patient was hypoxic and pulling is oxygenating and biting on his restraints. He was re-intubated was unable to clear his secretions, was hypoxic on Airvo, he was also resisting suctioning for secretions. patient remains intubated. On full ventilatory support Vent management per extension course counselor. (2) Stercoral colitis: Code(s): K52.89 - Other specified noninfective gastroenteritis and colitis Status: Acute Assessment and Plan: Ischemic stercoral colitis secondary to chronic constipation and dilation of sigmoid colon 10/17/2022 status post Exploratory laparotomy, sigmoid colectomy, creation of end colostomy Brown liquid output from ostomy and ostomy appears slightly prolapsed, surgery aware Pain control MiraLax and Dulcolax for chronic constipation -will hold tube feeds, NG/OG to low intermittent suction (3) Septic shock: Code(s): A41.9 - Sepsis, unspecified organism; R65.21 - Severe sepsis with septic shock Status: Acute Assessment and Plan: Secondary to ischemic colitis and pneumonia Blood cultures are growing 1/2 Leuconostoc mesenteroides ssp cremoris which is likely contaminant Off Levophed Leukocytosis improving 10/25/2022 CT scan of the abdomen: ?Interval partial colectomy. New development of gas collection with surrounding phlegmonous change adjacent to the anastomotic site, suspicious for developing infection with possible leak.? Small pleural effusions. Bibasilar dependent airspace disease which may represent atelectasis or developing pneumonia. 10/25/[address]-guided abscess drainage adjacent Valorie pouch with catheter placement -discontinue Zosyn, Antibiotics switched to imipenem and vancomycin (10/25) (4) Influenza A: Code(s): J10.1 - Influenza due to other identified influenza virus with other respiratory manifestations Status: Acute Assessment and Plan: Patient tested positive for influenza A. Not sure if it is symptomatic as patient is unable to provide history Completed a five-day course of Tamiflu (5) Electrolyte abnormality: Code(s): E87.8 - Other disorders of electrolyte and fluid balance, not elsewhere classified Status: Acute Assessment and Plan: Potassium normalized after replacement (6) Anemia: Code(s): D64.9 - Anemia, unspecified Status: Acute Assessment and Plan: Hemoglobin trended down. H&H 6.8 and planned for 1 unit of PRBC transfusion No obvious signs of bleeding Hemoglobin has been stable Transfuse if hemoglobin < 7.0 (7) Elevated LFTs: Code(s): R79.89 - Other specified abnormal findings of blood chemistry Status: Acute Assessment and Plan: Right upper quadrant ultrasound with no etiology for abnormal liver function tests -hepatitis panel was negative -LFTs trending down, continue to monitor (8) Intra-abdominal abscess: Code(s): K65.1 - Peritoneal abscess Status: Acute Assessment and Plan: CT scan of the abdomen and pelvis as above -10/25/[address]-guided abscess drainage adjacent Valorie pouch with catheter placement -surgery following the patient -antibiotics as above Plan DVT prophylaxis -Lovenox currently on hold due to anemia, continue SCDs Stress ulcer prophylaxis -Pepcid Nutrition -tube feeds currently on hold, NG/OG to suction Code Status - Full Code Subjective Date/time seen: 10/26/22 15:08 Interval history: Chart reviewed. Discussed with extension course counselor. Intubated and sedated on vent. Drain placed yesterday f
--- NOTE | 2022-10-26 16:14 | PM.PNGS ---
Progress Note: A&P Assessment and Plan (1) Intra-abdominal abscess: Code(s): K65.1 - Peritoneal abscess Status: Acute Assessment and Plan: adjacent to rectal stump status post Valorie procedure. No output recorded. Serosanguineous fluid in the drain at present. White blood cell count has decreased from 22,000 to 20,800 today. Continue antibiotics and critical care management. Subjective Subjective Date/Time Seen: 10/26/22 16:14 Patient reports: other ( Nonverbal, nonresponsive) Review of Systems Review of Systems: ROS unobtainable: Yes unobtainable due to medical condition Exam GI: Inspection: incision ( dry and healing well) and other ( good colostomy output, serosanguineous drain output) GI Palp: Yes Soft to palpation Objective Data Vital Signs Vital Signs: Vital Signs - 24 hr 10/25/22 17:26 10/25/22 17:49 10/25/22 17:49 Temperature Pulse Rate 126 H 123 H 123 H Respiratory Rate 14 14 Blood Pressure Pulse Oximetry 92 Oxygen Delivery Mechanical Ventilation Fraction of Inspired Oxygen 35 10/25/22 18:00 10/25/22 18:00 10/25/22 19:40 Temperature Pulse Rate 121 H 121 H 130 H Respiratory Rate 14 18 Blood Pressure 111/76 Pulse Oximetry 93 Oxygen Delivery Fraction of Inspired Oxygen 10/25/22 20:45 10/25/22 20:50 10/25/22 21:30 Temperature Pulse Rate 125 H 120 H 130 H Respiratory Rate 20 18 Blood Pressure Pulse Oximetry 90 Oxygen Delivery Mechanical Ventilation Fraction of Inspired Oxygen 40 10/25/22 20:00 10/25/22 20:00 10/25/22 20:00 Temperature 37.3 C Pulse Rate 126 H 126 H 130 H Respiratory Rate 14 18 Blood Pressure 126/94 H Pulse Oximetry 94 90 Oxygen Delivery Mechanical Ventilation Fraction of Inspired Oxygen 40 10/25/22 22:00 10/25/22 22:00 10/25/22 20:00 Temperature Pulse Rate 76 118 H Respiratory Rate 14 Blood Pressure 109/76 Pulse Oximetry 100 Oxygen Delivery Fraction of Inspired Oxygen 40 10/25/22 22:28 10/25/22 22:42 10/25/22 22:49 Temperature Pulse Rate 116 H 113 H 112 H Respiratory Rate 14 16 16 Blood Pressure Pulse Oximetry Oxygen Delivery Fraction of Inspired Oxygen 10/25/22 23:46 10/26/22 00:00 10/26/22 00:00 Temperature 37.1 C Pulse Rate 108 H 108 H Respiratory Rate 14 14 Blood Pressure 107/75 Pulse Oximetry 100 100 Oxygen Delivery Mechanical Ventilation Fraction of Inspired Oxygen 40 40 10/26/22 00:00 10/26/22 00:42 10/26/22 00:42 Temperature Pulse Rate 109 H 107 H 108 H Respiratory Rate 14 14 Blood Pressure Pulse Oximetry Oxygen Delivery Fraction of Inspired Oxygen 10/25/22 23:44 10/26/22 02:00 10/26/22 02:00 Temperature Pulse Rate 125 H 112 H 110 H Respiratory Rate 14 Blood Pressure 107/73 Pulse Oximetry 100 100 Oxygen Delivery Mechanical Ventilation Fraction of Inspired Oxygen 45 10/26/22 02:45 10/26/22 02:45 10/26/22 04:00 Temperature 37.1 C Pulse Rate 112 H 112 H 110 H Respiratory Rate 14 14 15 Blood Pressure 114/68 Pulse Oximetry 100 Oxygen Delivery Fraction of Inspired Oxygen 10/26/22 04:00 10/26/22 04:00 10/26/22 06:00 Temperature 37.1 C Pulse Rate 110 H 106 H Respiratory Rate 15 14 Blood Pressure 101/63 Pulse Oximetry 100 100 Oxygen Delivery Mechanical Ventilation Fraction of Inspired Oxygen 40 40 10/26/22 06:20 10/26/22 06:20 10/26/22 03:00 Temperature Pulse Rate 108 H 107 H 104 H Respiratory Rate 14 14 Blood Pressure Pulse Oximetry 100 Oxygen Delivery Mechanical Ventilation Fraction of Inspired Oxygen 45 10/26/22 06:05 10/26/22 04:00 10/26/22 06:00 Temperature Pulse Rate 106 H 105 H 102 H Respiratory Rate Blood Pressure Pulse Oximetry 99 Oxygen Delivery Mechanical Ventilation Fraction of Inspired Oxygen 40 10/26/22 04:15 10/26/22 06:05 10/26/22 07:00 Temperature Pulse Rate 105
[2022-10-26 18:53] LABS: Glucose Point of Care 97 mg/dl (65-105)
[2022-10-27] VITALS (34 sets, daily range): BP systolic 95–108; BP diastolic 56–74; PULSE 83–108; RESP 14–17; TEMP 37.2–37.7; O2SAT 94–100
[2022-10-27 05:12] LABS: Alveolar/Arterial O2 Gradient 103.2 mmHg; Base Excess ABG 3.2 mEq/l (+/-2.0); Carboxyhemoglobin 0.3 % THb (0-2.0); Fractional Inspired Oxygen 30 %; HCO3 ABG 27.3 mEq/l (22.0-26.0); Oxygen Content ABG 11.2 %vol (16.0-22.0); Oxygen Saturation ABG 93.7 % (95.0-100.0); Oxyhemoglobin 92.2 % THb (90.0-100.0); PCO2 ABG 39.2 mmHg (35.0-45.0); PO2 ABG 64.6 mmHg (80.0-100.0); PO2 FiO2 Ratio Arterial Blood 2.15 %; Reduced Hemoglobin 7.5 %THb (0-5.0); Total Hemoglobin 8.6 g/dL (12.0-18.0)
[2022-10-27] MEDS: CENTRAL LINE FLUSH 10 ML IV PUSH ×4 (05:35→20:09)
[2022-10-27 05:49] LABS: Hematocrit 25.5 % (42.0-52.0); Hemoglobin 7.5 g/dL (14.0-18.0); Mean Corpuscular HGB Conc 29.4 g/dl (32-36); Mean Corpuscular Hemoglobin 24.4 pg (26-34); Mean Corpuscular Volume 83.1 fl (80-100); Mean Platelet Volume 9.8 fl (7.4-10.4); Platelet Count Result 586 k/mm3 (150-375); Red Blood Count 3.07 M/mm3 (4.6-6.20); White Blood Count 16.4 K/mm3 (4.5-10.0)
[2022-10-27 06:00] LABS: INR 1.2; Prothrombin Time 15.2 Seconds (11.1-14.7)
[2022-10-27 06:01] LABS: Partial Thromboplastin Time 41.1 SECONDS (22.3-36.8)
[2022-10-27 06:26] LABS: Alanine Aminotransferase 124 U/L (6-50); Alkaline Phosphatase 107 U/L (38-126); Anion Gap 6 mmol/L (8-16); Aspartate Amino Transferase 51 U/L (17-59); Band Neutrophils Percent 4 % (0-6); Bilirubin,Total 0.3 mg/dL (0.2-1.3); Blood Urea Nitrogen 6 mg/dL (9-20); Calcium 7.8 mg/dL (8.4-10.2); Carbon Dioxide 26 mmol/L (22-30); Chloride 101 mmol/L (98-107); Estimated CRCL calculation 106 ml/min; Estimated Glomerular Filt Rate > 60; Glucose 88 mg/dL (65-110); Monocytes Absolute Manual 0.32 K/mm3 (0.1-0.90); Monocytes Percent Manual 2 % (3-9); Neutrophils Absolute Manual 14.26 K/mm3 (1.3-6.7); Neutrophils Percent Manual 83 % (46-73); Phosphorus 3.2 mg/dL (2.5-4.5); Potassium 3.5 mmol/L (3.4-5.0); Sodium 133 mmol/L (137-145); Total Cells Counted 100
[2022-10-27 06:27] LABS: Anisocytosis 1+ (NORMAL); Hypochromasia 1+ (NORMAL); Macrocytosis 1+ (NORMAL); Platelet Estimate Increased (Adequate); Polychromasia 1+ (NORMAL); Schistocytes None Seen (NORMAL)
[2022-10-27] MEDS: MIDAZOLAM 100MG/NS 100ML(*CRX) 100 MG/100 ML BAG 8 MG IV CONT ×2 (08:09→19:56)
[2022-10-27] MEDS: FENTANYL 2,500MCG/NS250ML(*CRX 2,500 MCG/250 ML BAG 20 MCG IV CONT ×2 (08:10→19:55)
[2022-10-27] MEDS: MINERAL OIL/WHITE PETROLATUM OINTMENT 1 APPLIC EACH EYE ×2 (08:22→20:09)
[2022-10-27] MEDS: FAMOTIDINE 20 MG/2 ML VIAL IV PUSH ×2 (08:23→20:09)
[2022-10-27] MEDS: polyethylene glycoL 3350 17 GM POWD.PACK PO (08:29)
--- NOTE | 2022-10-27 11:39 | WPDINTPN ---
Progress Note: A&P Assessment and Plan (1) Acute respiratory failure: Code(s): J96.00 - Acute respiratory failure, unspecified whether with hypoxia or hypercapnia Status: Acute Assessment and Plan: Patient was intubated and placed on mechanical ventilation for general anesthesia 10/17 extubated 10/18 downgraded to step-down unit, CPT was ordered 10/19 Increased oxygen requirement overnight. Patient was hypoxic and pulling is oxygenating and biting on his restraints. He was re-intubated was unable to clear his secretions, was hypoxic on Airvo, he was also resisting suctioning for secretions. -chest x-ray this morning shows: Stable right perihilar and bibasilar airspace disease which may represent pneumonia and/or atelectasis.? Small right pleural effusion.. -10/26: endotracheal tube was retracted - Patient on CMV. Currently on peep of 5, 30% FiO2 ABG reviewed Requiring increasing amount of fentanyl Versed infusion (2) Stercoral colitis: Code(s): K52.89 - Other specified noninfective gastroenteritis and colitis Status: Acute Assessment and Plan: Ischemic stercoral colitis secondary to chronic constipation and dilation of sigmoid colon 10/17/2022 status post Exploratory laparotomy, sigmoid colectomy, creation of end colostomy Brown liquid output from ostomy and ostomy appears slightly prolapsed, surgery aware Pain control MiraLax and Dulcolax for chronic constipation -NG currently to suction, abdominal distension has decreased, improved bowel sounds -will restart tube feeds today (3) Septic shock: Code(s): A41.9 - Sepsis, unspecified organism; R65.21 - Severe sepsis with septic shock Status: Acute Assessment and Plan: Secondary to ischemic colitis and pneumonia Blood cultures are growing 1/2 Leuconostoc mesenteroides ssp cremoris which is likely contaminant Off Levophed Leukocytosis improving Place on maintenance IV fluids since patient off tube feeds 10/25/2022 CT scan of the abdomen: ?Interval partial colectomy. New development of gas collection with surrounding phlegmonous change adjacent to the anastomotic site, suspicious for developing infection with possible leak.? Small pleural effusions. Bibasilar dependent airspace disease which may represent atelectasis or developing pneumonia. 10/25/[address]-guided abscess drainage adjacent Valorie pouch with catheter placement -continue imipenem and vancomycin (10/25) (4) Influenza A: Code(s): J10.1 - Influenza due to other identified influenza virus with other respiratory manifestations Status: Acute Assessment and Plan: Patient tested positive for influenza A. Not sure if it is symptomatic as patient is unable to provide history Completed a five-day course of Tamiflu (5) Electrolyte abnormality: Code(s): E87.8 - Other disorders of electrolyte and fluid balance, not elsewhere classified Status: Acute Assessment and Plan: Potassium normalized after replacement (6) Anemia: Code(s): D64.9 - Anemia, unspecified Status: Acute Assessment and Plan: Hemoglobin has been trending down No obvious signs of bleeding Hemoglobin has been stable Transfuse if hemoglobin < 7.0 10/26/2022: Hemoglobin 6.8 this morning, 1 unit of packed RBCs being transfused 10/27: Hemoglobin stable, INR 1.2 (7) Elevated LFTs: Code(s): R79.89 - Other specified abnormal findings of blood chemistry Status: Acute Assessment and Plan: Right upper quadrant ultrasound with no etiology for abnormal liver function tests -hepatitis panel was negative -LFTs trending down, continue to monitor (8) Intra-abdominal abscess: Code(s): K65.1 - Peritoneal abscess Status: Acute Assessment and Plan: CT scan of the abdomen and pelvis as above -10/25/[address]-guided abscess drainage adjacent Valorie pouch with catheter placement -surgery followi
[2022-10-27 12:26] LABS: Glucose Point of Care 118 mg/dl (65-105)
[2022-10-27] MEDS: ALTEPLASE 2 MG VIAL (CATHFLO) IV PUSH (13:53)
--- NOTE | 2022-10-27 15:14 | PM.PNGS ---
Progress Note: A&P Assessment and Plan (1) Intra-abdominal abscess: Code(s): K65.1 - Peritoneal abscess Status: Acute Assessment and Plan: Little output from drain. Probably not having much affect. Continue IV antibiotics. White blood cell count down to 16,000 today. Remains intubated. Subjective Subjective Date/Time Seen: 10/27/22 15:14 Patient reports: other ( intubated, no response to verbal or physical stimulus) Review of Systems Review of Systems: ROS unobtainable: Yes unobtainable due to endotracheal tube and unobtainable due to medical condition Exam Const: General: patient obtunded GI: Inspection: incision ( dry and healing, colostomy working well), scaphoid and other ( serosanguineous in pigtail catheter, no output yesterday either.) GI Palp: Yes Firmness to palpation present (GI) Objective Data Vital Signs Vital Signs: Vital Signs - 24 hr 10/26/22 15:30 10/26/22 17:00 10/26/22 16:00 Temperature Pulse Rate 102 H 109 H 99 Respiratory Rate Blood Pressure Pulse Oximetry 100 99 Oxygen Delivery Mechanical Ventilation Mechanical Ventilation Fraction of Inspired Oxygen 40 40 10/26/22 16:00 10/26/22 16:00 10/26/22 16:00 Temperature 37.1 C Pulse Rate 99 99 Respiratory Rate 14 14 Blood Pressure 112/74 Pulse Oximetry 100 100 Oxygen Delivery Mechanical Ventilation Fraction of Inspired Oxygen 40 40 10/26/22 18:00 10/26/22 18:00 10/26/22 16:00 Temperature Pulse Rate 105 H 105 H 98 Respiratory Rate 14 14 Blood Pressure 112/66 Pulse Oximetry 100 Oxygen Delivery Fraction of Inspired Oxygen 10/26/22 17:00 10/26/22 18:00 10/26/22 18:58 Temperature Pulse Rate 99 103 H 107 H Respiratory Rate 14 14 14 Blood Pressure Pulse Oximetry Oxygen Delivery Fraction of Inspired Oxygen 10/26/22 16:00 10/26/22 17:00 10/26/22 18:00 Temperature Pulse Rate 96 99 103 H Respiratory Rate 14 14 14 Blood Pressure Pulse Oximetry Oxygen Delivery Fraction of Inspired Oxygen 10/26/22 18:51 10/26/22 18:58 10/26/22 20:00 Temperature 37.2 C Pulse Rate 107 H 107 H 97 Respiratory Rate 14 14 16 Blood Pressure 105/66 Pulse Oximetry 99 Oxygen Delivery Fraction of Inspired Oxygen 10/26/22 20:00 10/26/22 20:00 10/26/22 20:00 Temperature Pulse Rate 97 97 Respiratory Rate 16 Blood Pressure Pulse Oximetry 99 Oxygen Delivery Mechanical Ventilation Fraction of Inspired Oxygen 40 40 10/26/22 21:18 10/26/22 22:00 10/26/22 22:00 Temperature Pulse Rate 101 H 101 H 101 H Respiratory Rate 16 Blood Pressure 100/59 L Pulse Oximetry 100 95 Oxygen Delivery Mechanical Ventilation Fraction of Inspired Oxygen 40 10/26/22 23:22 10/26/22 23:51 10/27/22 00:00 Temperature Pulse Rate 91 91 100 Respiratory Rate 14 14 Blood Pressure Pulse Oximetry Oxygen Delivery Fraction of Inspired Oxygen 10/27/22 00:00 10/27/22 00:00 10/27/22 00:00 Temperature 37.3 C Pulse Rate 91 100 Respiratory Rate 14 15 Blood Pressure 102/71 Pulse Oximetry 95 100 Oxygen Delivery Mechanical Ventilation Fraction of Inspired Oxygen 40 40 10/27/22 02:00 10/27/22 02:00 10/26/22 23:36 Temperature Pulse Rate 92 92 94 Respiratory Rate 14 Blood Pressure 95/56 L Pulse Oximetry 94 99 Oxygen Delivery Mechanical Ventilation Fraction of Inspired Oxygen 40 10/27/22 03:15 10/27/22 04:00 10/27/22 04:00 Temperature Pulse Rate 86 95 86 Respiratory Rate 14 Blood Pressure Pulse Oximetry 94 94 Oxygen Delivery Mechanical Ventilation Mechanical Ventilation Fraction of Inspired Oxygen 40 40 10/27/22 04:00 10/27/22 04:00 10/27/22 05:20 Temperature 37.3 C Pulse Rate 96 83 Respiratory Rate 17 Blood Pressure 107/66 Pulse Oximetry 96 95 Oxygen Delivery Mechanical Ventilation Fraction of Inspired Oxygen 40 40 10/27/22 06:00 10/27/22
[2022-10-27 17:57] LABS: Glucose Point of Care 83 mg/dl (65-105)
[2022-10-28] VITALS (40 sets, daily range): BP systolic 90–111; BP diastolic 53–78; PULSE 72–119; RESP 14–19; TEMP 37.2–39.6; O2SAT 92–100
[2022-10-28 05:01] LABS: Basophils Absolute Auto 0.1 K/mm3 (0.0-0.1); Basophils Percent Auto 0.4 % (0.2-1.2); Eosinophils Absolute Auto 0.2 K/mm3 (0-0.3); Eosinophils Percent Auto 1.7 % (0-4.4); Hemoglobin 7.7 g/dL (14.0-18.0); Immature Granulocyte Absolute 0.63 K/mm3 (0.00-0.031); Immature Granulocyte Percent A 4.5 % (0-0.5); Lymphocytes Absolute Auto 1.83 K/mm3 (0.9-3.2); Lymphocytes Percent Auto 13.2 % (18.3-44.2); Mean Corpuscular HGB Conc 29.6 g/dl (32-36); Mean Corpuscular Hemoglobin 24.5 pg (26-34); Mean Corpuscular Volume 82.8 fl (80-100); Mean Platelet Volume 9.8 fl (7.4-10.4); Monocytes Absolute Auto 0.9 K/mm3 (0.1-0.6); Monocytes Percent Auto 6.5 % (2.6-8.5); Neutrophils Absolute Auto 10.2 K/mm3 (1.3-6.7); Neutrophils Percent Auto 73.7 % (45.5-73.1); Nucleated Red Blood Cells Absolute Auto 0.1 K/mm3 (0.0-0.012); Nucleated Red Blood Cells Perc 0.5 % (0.0-0.2); Platelet Count Result 580 k/mm3 (150-375); Red Blood Count 3.14 M/mm3 (4.6-6.20); Red Cell Distribution Width 18.9 % (11.5-14.5); White Blood Count 13.9 K/mm3 (4.5-10.0)
[2022-10-28 05:24] LABS: Alanine Aminotransferase 92 U/L (6-50); Albumin Level 2.9 g/dL (3.5-5.1); Alkaline Phosphatase 106 U/L (38-126); Anion Gap 5 mmol/L (8-16); Aspartate Amino Transferase 44 U/L (17-59); Bilirubin,Total 0.2 mg/dL (0.2-1.3); Blood Urea Nitrogen 7 mg/dL (9-20); Calcium 7.7 mg/dL (8.4-10.2); Carbon Dioxide 27 mmol/L (22-30); Chloride 103 mmol/L (98-107); Estimated CRCL calculation 139 ml/min; Estimated Glomerular Filt Rate > 60; Glucose 108 mg/dL (65-110); Magnesium 1.8 mg/dL (1.6-2.3); Phosphorus 3.1 mg/dL (2.5-4.5); Potassium 3.2 mmol/L (3.4-5.0); Sodium 135 mmol/L (137-145)
[2022-10-28 05:35] LABS: Anisocytosis 2+ (NORMAL); Hypochromasia 1+ (NORMAL); Macrocytosis 1+ (NORMAL); Microcytosis 2+ (NORMAL)
[2022-10-28 05:36] LABS: Poikilocytosis 1+ (NORMAL)
[2022-10-28 05:37] LABS: Platelet Estimate Increased (Adequate); Schistocytes 1+ (NORMAL)
[2022-10-28 05:38] LABS: Alveolar/Arterial O2 Gradient 109.6 mmHg; Base Excess ABG 6.9 mEq/l (+/-2.0); Carboxyhemoglobin 0.6 % THb (0-2.0); Fractional Inspired Oxygen 30 %; HCO3 ABG 31.2 mEq/l (22.0-26.0); Methemoglobin ABG 0.3 %THb (0-1.5); Oxygen Content ABG 14.5 %vol (16.0-22.0); Oxygen Saturation ABG 89.8 % (95.0-100.0); PCO2 ABG 43.1 mmHg (35.0-45.0); PO2 ABG 53.7 mmHg (80.0-100.0); PO2 FiO2 Ratio Arterial Blood 1.79 %; Reduced Hemoglobin 13.3 %THb (0-5.0); pH ABG 7.477 (7.350-7.450)
[2022-10-28 05:42] LABS: Device VENTILATOR; Modified Allen's Test Unable to perform; Oxyhemoglobin 85.8 % THb (90.0-100.0); Site Drawn LEFT RADIAL
[2022-10-28 05:43] LABS: Arterial Blood Gas PEEP 5 cmH2O; Arterial Blood Gas Tidal Volume 320 ml; Arterial Blood Gas Vent Mode CMV; Arterial Blood Gas Ventilator rate 14 /MIN
[2022-10-28] MEDS: CENTRAL LINE FLUSH 10 ML IV PUSH ×4 (05:45→20:14)
[2022-10-28] MEDS: FENTANYL 2,500MCG/NS250ML(*CRX 2,500 MCG/250 ML BAG 20 MCG IV CONT (08:42)
[2022-10-28] MEDS: MIDAZOLAM 100MG/NS 100ML(*CRX) 100 MG/100 ML BAG 8 MG IV CONT (08:42)
[2022-10-28] MEDS: FUROSEMIDE INJ 40 MG/4 ML VIAL IV PUSH (08:46)
[2022-10-28] MEDS: MAGNESIUM SULF 2 GM/WATER 50ML 2 GM/50 ML BAG IVPB (08:46)
[2022-10-28] MEDS: POTASSIUM CHLORIDE 20 MEQ PACKET (FOR LIQUID) 40 MEQ FEED TUBE (08:46)
[2022-10-28] MEDS: MINERAL OIL/WHITE PETROLATUM OINTMENT 1 APPLIC EACH EYE ×2 (08:52→20:14)
[2022-10-28] MEDS: polyethylene glycoL 3350 17 GM POWD.PACK PO (08:52)
[2022-10-28] MEDS: FAMOTIDINE 20 MG/2 ML VIAL IV PUSH ×2 (08:52→20:14)
[2022-10-28] MEDS: dexmedeTOMIDine 400 MCG/100 ML 400 MCG/100 ML BAG 6.25 MCG IV CONT (11:46)
--- NOTE | 2022-10-28 12:24 | PCFNICU ---
ICU Rounding Note: Pt current nutrition is Vital 1.2 @ 55 ml/h with flushes 30 ml H2O q 4 h. Nutrition recommendation: Continue same tube feeding orders and care plan Last recorded weight is 50 kg. Up from 46 kg 10/18/22. +8.8 lb Bowel Motility: No BMs charted Labs Reviewed: Hgb 7.7, Hct 26.0, Alb 2.9, Na 135, K+ 3.2, BUN 7, Creat 0.4 Meds Noted: Sedation with Versed, precedex, Fentanyl, ativan Skin: Incision to abdomen Additional Notes: Patient remains on mechanical vent. Tube feedings at goal rate are providing 1452 kcals/91 gms protein/ 981 ml water. 30 ml flush q 4 hours. Tolerating TF. Agree with diet orders. Following daily in ICU rounds. Monitoring plan of care, weights, labs, intakes, tolerance Follow up daily in ICU rounds.
[2022-10-28 12:25] LABS: Vancomycin Trough 10.5 ug/mL (10.0-20.0)
[2022-10-28 13:08] LABS: Glucose Point of Care 132 mg/dl (65-105)
--- NOTE | 2022-10-28 13:27 | WPDINTPN ---
Progress Note: A&P Assessment and Plan (1) Acute respiratory failure: Code(s): J96.00 - Acute respiratory failure, unspecified whether with hypoxia or hypercapnia Status: Acute Assessment and Plan: Patient was intubated and placed on mechanical ventilation for general anesthesia 10/17 extubated 10/18 downgraded to step-down unit, CPT was ordered 10/19 Increased oxygen requirement overnight. Patient was hypoxic and pulling is oxygenating and biting on his restraints. He was re-intubated was unable to clear his secretions, was hypoxic on Airvo, he was also resisting suctioning for secretions. -chest x-ray this morning shows:Opacities in the bilateral mid and lower lung zones with increasing left perihilar region which could represent pneumonia, pulmonary edema, atelectasis or some combination thereof. -10/26: endotracheal tube was retracted - Patient on CMV. Currently on peep of 5, 30% FiO2 ABG reviewed Requiring increasing amount of fentanyl and Versed infusion. Will start Precedex infusion wean fentanyl and Versed, once he is more awake will put him on a breathing trial (2) Stercoral colitis: Code(s): K52.89 - Other specified noninfective gastroenteritis and colitis Status: Acute Assessment and Plan: Ischemic stercoral colitis secondary to chronic constipation and dilation of sigmoid colon 10/17/2022 status post Exploratory laparotomy, sigmoid colectomy, creation of end colostomy Brown liquid output from ostomy and ostomy appears slightly prolapsed, surgery aware Pain control MiraLax and Dulcolax for chronic constipation -NG currently to suction, abdominal distension has decreased, improved bowel sounds -tube feeds have been restarted, tolerating (3) Septic shock: Code(s): A41.9 - Sepsis, unspecified organism; R65.21 - Severe sepsis with septic shock Status: Acute Assessment and Plan: Secondary to ischemic colitis and pneumonia Blood cultures are growing 1/2 Leuconostoc mesenteroides ssp cremoris which is likely contaminant Off Levophed 10/25/2022, patient developed leukocytosis, abdominal distension 10/25/2022 CT scan of the abdomen: ?Interval partial colectomy. New development of gas collection with surrounding phlegmonous change adjacent to the anastomotic site, suspicious for developing infection with possible leak.? Small pleural effusions. Bibasilar dependent airspace disease which may represent atelectasis or developing pneumonia. 10/25/[address]-guided abscess drainage adjacent Valorie pouch with catheter placement -continue imipenem and vancomycin (10/25) -10/23/2022 blood cultures negative x2 -10/26/2022: Sputum cultures growing normal oropharyngeal nayeli -11/22/2022 urine culture negative -10/28/2022 blood cultures pending 10/28/2022 WBC count trending down (4) Influenza A: Code(s): J10.1 - Influenza due to other identified influenza virus with other respiratory manifestations Status: Acute Assessment and Plan: Patient tested positive for influenza A. Not sure if it is symptomatic as patient is unable to provide history Completed a five-day course of Tamiflu (5) Electrolyte abnormality: Code(s): E87.8 - Other disorders of electrolyte and fluid balance, not elsewhere classified Status: Acute Assessment and Plan: Replace potassium (6) Anemia: Code(s): D64.9 - Anemia, unspecified Status: Acute Assessment and Plan: Hemoglobin has been trending down No obvious signs of bleeding Hemoglobin has been stable Transfuse if hemoglobin < 7.0 10/26/2022: Hemoglobin 6.8 this morning, 1 unit of packed RBCs being transfused 10/28: Hemoglobin stable (7) Elevated LFTs: Code(s): R79.89 - Other specified abnormal findings of blood chemistry Status: Acute Assessment and Plan: Right upper quadrant ultrasound with no etiology for abnormal liver function tests -hepatitis panel
--- NOTE | 2022-10-28 15:02 | PM.PNGS ---
Progress Note: A&P Assessment and Plan (1) Stercoral colitis: Code(s): K52.89 - Other specified noninfective gastroenteritis and colitis Status: Acute Assessment and Plan: stable, clinically cont to slowly improved, TF at goal, ostomy working well, plan for weaning trails soon Subjective Subjective Date/Time Seen: 10/28/22 15:02 no acute issues, cont to be intubated, sedated Review of Systems Review of Systems: ROS unobtainable: Yes unobtainable due to endotracheal tube, unobtainable due to medical condition and unobtainable due to mental status Exam Const: General: comfortable Other: intubated, sedated Resp: Auscultation: diminished lung sounds Cardio: Rate: regular rate Rhythm: regular rhythm GI: Inspection: normal to inspection GI Palp: Yes Soft to palpation Other: drain c minimal s/s drainage, ostomy - +fxn Objective Data Vital Signs Vital Signs: Vital Signs - 24 hr 10/27/22 15:27 10/27/22 15:27 10/27/22 16:00 Temperature Pulse Rate 96 96 96 Respiratory Rate 14 14 14 Blood Pressure Pulse Oximetry 94 Oxygen Delivery Mechanical Ventilation Fraction of Inspired Oxygen 40 10/27/22 16:00 10/27/22 16:00 10/27/22 16:00 Temperature 37.2 C Pulse Rate 86 85 Respiratory Rate 14 Blood Pressure 108/74 Pulse Oximetry 99 Oxygen Delivery Fraction of Inspired Oxygen 40 10/27/22 16:10 10/27/22 16:10 10/27/22 17:03 Temperature Pulse Rate 85 85 83 Respiratory Rate 14 14 14 Blood Pressure Pulse Oximetry Oxygen Delivery Fraction of Inspired Oxygen 10/27/22 17:03 10/27/22 18:00 10/27/22 18:00 Temperature Pulse Rate 83 90 90 Respiratory Rate 14 14 Blood Pressure 108/73 Pulse Oximetry 98 Oxygen Delivery Fraction of Inspired Oxygen 10/27/22 18:00 10/27/22 18:00 10/27/22 17:40 Temperature Pulse Rate 90 90 93 Respiratory Rate 14 14 Blood Pressure Pulse Oximetry 98 Oxygen Delivery Mechanical Ventilation Fraction of Inspired Oxygen 30 10/27/22 18:51 10/27/22 18:51 10/27/22 19:55 Temperature Pulse Rate 96 96 92 Respiratory Rate 14 14 14 Blood Pressure Pulse Oximetry Oxygen Delivery Fraction of Inspired Oxygen 10/27/22 19:55 12/04/22 19:56 10/27/22 19:56 Temperature Pulse Rate 92 96 96 Respiratory Rate 14 14 14 Blood Pressure Pulse Oximetry Oxygen Delivery Fraction of Inspired Oxygen 10/27/22 20:00 10/27/22 20:00 10/27/22 20:00 Temperature 37.7 C H Pulse Rate 100 100 100 Respiratory Rate 17 17 Blood Pressure 101/59 L Pulse Oximetry 97 97 Oxygen Delivery Mechanical Ventilation Fraction of Inspired Oxygen 30 10/27/22 20:00 10/27/22 21:32 10/27/22 21:32 Temperature Pulse Rate 96 96 Respiratory Rate 14 Blood Pressure Pulse Oximetry 98 98 Oxygen Delivery Mechanical Ventilation Mechanical Ventilation Fraction of Inspired Oxygen 30 30 30 10/27/22 22:00 10/27/22 22:00 10/28/22 00:00 Temperature Pulse Rate 92 92 99 Respiratory Rate 14 Blood Pressure 100/62 Pulse Oximetry 95 Oxygen Delivery Fraction of Inspired Oxygen 10/28/22 00:00 10/28/22 00:00 10/28/22 00:00 Temperature 37.5 C Pulse Rate 92 99 Respiratory Rate 14 17 Blood Pressure 106/62 Pulse Oximetry 95 97 Oxygen Delivery Mechanical Ventilation Fraction of Inspired Oxygen 30 30 10/28/22 00:17 10/28/22 00:17 10/28/22 02:00 Temperature Pulse Rate 102 H 102 H 96 Respiratory Rate 15 Blood Pressure Pulse Oximetry 96 96 Oxygen Delivery Mechanical Ventilation Mechanical Ventilation Fraction of Inspired Oxygen 30 30 10/28/22 02:00 10/28/22 02:32 10/28/22 02:32 Temperature Pulse Rate 96 96 96 Respiratory Rate 15 15 Blood Pressure 98/53 L Pulse Oximetry 93 99 99 Oxygen Delivery Mechanical Ventilation Mechanical Ventilation Fraction of Inspired Oxygen 30 30 10/28/22 04:00 10/28/22 04:00
[2022-10-28] MEDS: ONDANSETRON INJ 4 MG/2 ML VIAL IV PUSH (16:50)
[2022-10-28] MEDS: ACETAMINOPHEN ELIXIR 325 MG/10.15 ML UDC 650 MG PO (16:53)
[2022-10-28 18:29] LABS: Glucose Point of Care 114 mg/dl (65-105)
[2022-10-28] MEDS: dexmedeTOMIDine 400 MCG/100 ML 400 MCG/100 ML BAG 18.75 MCG IV CONT ×2 (19:06→23:51)
[2022-10-28 23:49] LABS: Glucose Point of Care 109 mg/dl (65-105)
[2022-10-29] VITALS (49 sets, daily range): BP systolic 92–107; BP diastolic 56–70; PULSE 66–95; RESP 12–30; TEMP 36.6–37.1; O2SAT 91–100
[2022-10-29] MEDS: dexmedeTOMIDine 400 MCG/100 ML 400 MCG/100 ML BAG 18.75 MCG IV CONT ×3 (04:52→16:06)
[2022-10-29 05:05] LABS: Alanine Aminotransferase 85 U/L (6-50); Albumin Level 3.2 g/dL (3.5-5.1); Alkaline Phosphatase 106 U/L (38-126); Anion Gap 7 mmol/L (8-16); Aspartate Amino Transferase 73 U/L (17-59); Bilirubin,Total 0.3 mg/dL (0.2-1.3); Blood Urea Nitrogen 10 mg/dL (9-20); Calcium 8.2 mg/dL (8.4-10.2); Carbon Dioxide 29 mmol/L (22-30); Chloride 101 mmol/L (98-107); Estimated CRCL calculation 95 ml/min; Estimated Glomerular Filt Rate > 60; Glucose 95 mg/dL (65-110); Magnesium 2.2 mg/dL (1.6-2.3); Phosphorus 3.8 mg/dL (2.5-4.5); Potassium 3.9 mmol/L (3.4-5.0); Sodium 137 mmol/L (137-145)
[2022-10-29 05:26] LABS: Alveolar/Arterial O2 Gradient 101.9 mmHg; Base Excess ABG 5.9 mEq/l (+/-2.0); Carboxyhemoglobin 0.1 % THb (0-2.0); Fractional Inspired Oxygen 30 %; Methemoglobin ABG 0.3 %THb (0-1.5); Oxygen Content ABG 11.6 %vol (16.0-22.0); Oxygen Saturation ABG 93.5 % (95.0-100.0); Oxyhemoglobin 90.5 % THb (90.0-100.0); PCO2 ABG 41.6 mmHg (35.0-45.0); PO2 ABG 63.1 mmHg (80.0-100.0); Reduced Hemoglobin 9.1 %THb (0-5.0); Total Hemoglobin 9.1 g/dL (12.0-18.0); pH ABG 7.476 (7.350-7.450)
[2022-10-29 05:29] LABS: Device VENTILATOR; Modified Allen's Test Pass; Site Drawn RIGHT RADIAL
[2022-10-29 05:30] LABS: Arterial Blood Gas PEEP 5 cmH2O; Arterial Blood Gas Tidal Volume 320 ml; Arterial Blood Gas Vent Mode CMV; Arterial Blood Gas Ventilator rate 14 /MIN
[2022-10-29 05:32] LABS: Basophils Absolute Auto 0.1 K/mm3 (0.0-0.1); Basophils Percent Auto 0.4 % (0.2-1.2); Eosinophils Absolute Auto 0.2 K/mm3 (0-0.3); Eosinophils Percent Auto 1.2 % (0-4.4); Hematocrit 26.8 % (42.0-52.0); Immature Granulocyte Absolute 0.28 K/mm3 (0.00-0.031); Immature Granulocyte Percent A 2.1 % (0-0.5); Mean Corpuscular HGB Conc 29.9 g/dl (32-36); Mean Corpuscular Hemoglobin 23.7 pg (26-34); Mean Corpuscular Volume 79.5 fl (80-100); Mean Platelet Volume 9.8 fl (7.4-10.4); Monocytes Percent Auto 7.5 % (2.6-8.5); Neutrophils Absolute Auto 10.6 K/mm3 (1.3-6.7); Neutrophils Percent Auto 77.8 % (45.5-73.1); Nucleated Red Blood Cells Perc 0.1 % (0.0-0.2); Platelet Count Result 539 k/mm3 (150-375); Red Blood Count 3.37 M/mm3 (4.6-6.20); Red Cell Distribution Width 18.9 % (11.5-14.5); White Blood Count 13.6 K/mm3 (4.5-10.0)
[2022-10-29] MEDS: CENTRAL LINE FLUSH 10 ML IV PUSH ×3 (06:13→23:09)
[2022-10-29 06:39] LABS: Platelet Estimate Adequate (Adequate)
[2022-10-29 06:40] LABS: Anisocytosis 1+ (NORMAL); Helmet Cells 1+ (NORMAL); Hypochromasia 2+ (NORMAL); Ovalocytes 2+ (NORMAL); Target Cells 1+ (NORMAL); Tear Drop Cells 1+ (NORMAL)
[2022-10-29 06:41] LABS: Schistocytes 1+ (NORMAL)
[2022-10-29] MEDS: FAMOTIDINE 20 MG/2 ML VIAL IV PUSH ×2 (09:11→21:38)
[2022-10-29] MEDS: MINERAL OIL/WHITE PETROLATUM OINTMENT 1 APPLIC EACH EYE ×2 (09:11→21:38)
[2022-10-29] MEDS: SCOPOLAMINE 1.5 MG PATCH TRANSDERM (09:12)
[2022-10-29] MEDS: polyethylene glycoL 3350 17 GM POWD.PACK PO (09:14)
--- NOTE | 2022-10-29 10:19 | PM.PNGS ---
Progress Note: A&P Assessment and Plan (1) Stercoral colitis: Code(s): K52.89 - Other specified noninfective gastroenteritis and colitis Status: Acute Assessment and Plan: stable, ostomy working well, yin TFs at goal, exam benign (2) Intra-abdominal abscess: Code(s): K65.1 - Peritoneal abscess Status: Acute Assessment and Plan: s/p drain, WBC improving, cont abx (3) Acute respiratory failure: Code(s): J96.00 - Acute respiratory failure, unspecified whether with hypoxia or hypercapnia Status: Acute Assessment and Plan: wean and mgmt per commodity lead Subjective Subjective Date/Time Seen: 10/29/22 10:20 intubated, sedated Review of Systems Review of Systems: ROS unobtainable: Yes unobtainable due to endotracheal tube, unobtainable due to medical condition and unobtainable due to mental status Exam Const: Other: intubated, sedated Resp: Auscultation: diminished lung sounds Cardio: Rate: regular rate Rhythm: regular rhythm GI: Inspection: normal to inspection and incision Other: ostomy - +fxn, drain - minimal s/s drainage Objective Data Vital Signs Vital Signs: Vital Signs - 24 hr 10/28/22 11:46 10/28/22 12:30 10/28/22 12:30 Temperature Pulse Rate 117 H 114 H 114 H Respiratory Rate 14 14 14 Blood Pressure Pulse Oximetry Oxygen Delivery Fraction of Inspired Oxygen 10/28/22 12:30 10/28/22 11:00 10/28/22 11:00 Temperature Pulse Rate 114 H 119 H 119 H Respiratory Rate 14 14 14 Blood Pressure Pulse Oximetry Oxygen Delivery Fraction of Inspired Oxygen 10/28/22 12:00 10/28/22 12:00 10/28/22 12:45 Temperature Pulse Rate 118 H 118 H 103 H Respiratory Rate 14 14 14 Blood Pressure Pulse Oximetry Oxygen Delivery Fraction of Inspired Oxygen 10/28/22 13:00 10/28/22 13:00 10/28/22 13:00 Temperature Pulse Rate 104 H 104 H 104 H Respiratory Rate 14 14 14 Blood Pressure Pulse Oximetry Oxygen Delivery Fraction of Inspired Oxygen 10/28/22 13:30 10/28/22 13:30 10/28/22 13:30 Temperature Pulse Rate 97 97 97 Respiratory Rate 14 14 14 Blood Pressure Pulse Oximetry Oxygen Delivery Fraction of Inspired Oxygen 10/28/22 12:00 10/28/22 14:00 10/28/22 12:00 Temperature 37.9 C H Pulse Rate 117 H 96 117 H Respiratory Rate 14 14 Blood Pressure 111/76 97/66 L Pulse Oximetry 92 94 Oxygen Delivery Fraction of Inspired Oxygen 10/28/22 14:00 10/28/22 12:00 10/28/22 12:00 Temperature Pulse Rate 96 117 H Respiratory Rate 14 Blood Pressure Pulse Oximetry 92 Oxygen Delivery Mechanical Ventilation Fraction of Inspired Oxygen 30 30 10/28/22 14:00 10/28/22 14:00 10/28/22 14:30 Temperature Pulse Rate 96 96 85 Respiratory Rate 14 14 14 Blood Pressure Pulse Oximetry Oxygen Delivery Fraction of Inspired Oxygen 10/28/22 14:30 10/28/22 15:00 10/28/22 15:00 Temperature Pulse Rate 85 82 82 Respiratory Rate 14 14 14 Blood Pressure Pulse Oximetry Oxygen Delivery Fraction of Inspired Oxygen 10/28/22 15:00 10/28/22 15:38 10/28/22 14:00 Temperature Pulse Rate 82 95 99 Respiratory Rate 14 14 Blood Pressure Pulse Oximetry 95 Oxygen Delivery Mechanical Ventilation Fraction of Inspired Oxygen 30 10/28/22 11:03 10/28/22 16:53 10/28/22 17:00 Temperature 39.0 C H Pulse Rate 97 84 Respiratory Rate Blood Pressure Pulse Oximetry 100 97 Oxygen Delivery Mechanical Ventilation Mechanical Ventilation Fraction of Inspired Oxygen 30 30 10/28/22 16:00 10/28/22 16:00 10/28/22 17:53 Temperature 37.4 C Pulse Rate 97 Respiratory Rate Blood Pressure Pulse Oximetry Oxygen Delivery Fraction of Inspired Oxygen 30 10/28/22 17:15 10/28/22 17:15 10/28/22 17:15 Temperature Pulse Rate 101 H 101 H 101 H Respiratory Rate 14 14 14 Blood Pressure
--- NOTE | 2022-10-29 11:52 | PCNFU ---
Nutrition Follow-Up Complete: Inadequate oral intake related to altered GI function as evidenced by recent colectomy with end colostomy. goal: Meet estimated nutrition needs when medically able Patient is meeting current goal. Pt current nutrition is Vital AF 1.2 at 55 ml/hr. Last recorded weight is 46.9 kg. Bowel Motility:ostomy Labs Reviewed:Cr 0.6,Alb 3.2, Hct 26.8, Hgb 8.0 Meds Noted:Miralax, Vancomycin,Imipenem, Precedex,Versed Skin: WNL Additional Notes: Patient remains on mechanical vent and tube feedings of Vital AF 1.2 at 55 ml/hr and tolerating. Tube feedings are providing 1452 kcals/91 gms protein/981 ml water. Meeting 100% protein needs at 30 kcal/kg. 100% protein needs at 1.6 gm/kg protein. Flush 30 ml q 4 hours. Agree with diet orders. Monitoring plan of care, weights, labs, intakes, tolerance Follow up daily in ICU rounds
[2022-10-29] MEDS: ACETAMINOPHEN ELIXIR 325 MG/10.15 ML UDC 650 MG PO (13:25)
[2022-10-29] MEDS: ONDANSETRON INJ 4 MG/2 ML VIAL IV PUSH (13:25)
[2022-10-29 16:25] LABS: Glucose Point of Care 148 mg/dl (65-105)
--- NOTE | 2022-10-29 17:06 | PCRCNOTE ---
pt self extubated, currently on 50% 15L venturi mask. Saturations are 99%
[2022-10-29] MEDS: dexmedeTOMIDine 400 MCG/100 ML 400 MCG/100 ML BAG 11.25 MCG IV CONT (22:58)
[2022-10-29] MEDS: DEXAMETHASONE SOD PHOS INJ 4 MG/ML VIAL IV PUSH (23:09)
[2022-10-30] VITALS (37 sets, daily range): BP systolic 100–117; BP diastolic 61–67; PULSE 73–129; RESP 14–35; TEMP 37.4–37.9; O2SAT 92–100
[2022-10-30 00:23] LABS: Glucose Point of Care 166 mg/dl (65-105)
[2022-10-30 01:25] LABS: Vancomycin Trough 16.2 ug/mL (10.0-20.0)
[2022-10-30] MEDS: DEXAMETHASONE SOD PHOS INJ 4 MG/ML VIAL IV PUSH ×3 (04:47→17:43)
[2022-10-30] MEDS: CENTRAL LINE FLUSH 10 ML IV PUSH ×3 (04:48→21:36)
[2022-10-30 05:00] LABS: Basophils Percent Auto 0.2 % (0.2-1.2); Hematocrit 30.3 % (42.0-52.0); Hemoglobin 8.8 g/dL (14.0-18.0); Immature Granulocyte Absolute 0.32 K/mm3 (0.00-0.031); Immature Granulocyte Percent A 2.2 % (0-0.5); Lymphocytes Absolute Auto 0.87 K/mm3 (0.9-3.2); Lymphocytes Percent Auto 6.1 % (18.3-44.2); Mean Corpuscular Hemoglobin 23.8 pg (26-34); Mean Corpuscular Volume 82.1 fl (80-100); Mean Platelet Volume 9.6 fl (7.4-10.4); Monocytes Absolute Auto 0.3 K/mm3 (0.1-0.6); Monocytes Percent Auto 2.2 % (2.6-8.5); Neutrophils Absolute Auto 12.7 K/mm3 (1.3-6.7); Neutrophils Percent Auto 89.3 % (45.5-73.1); Platelet Count Result 612 k/mm3 (150-375); Red Blood Count 3.69 M/mm3 (4.6-6.20); Red Cell Distribution Width 19.1 % (11.5-14.5); White Blood Count 14.3 K/mm3 (4.5-10.0)
[2022-10-30 05:13] LABS: Alanine Aminotransferase 73 U/L (6-50); Albumin Level 3.4 g/dL (3.5-5.1); Alkaline Phosphatase 94 U/L (38-126); Anion Gap 5 mmol/L (8-16); Aspartate Amino Transferase 55 U/L (17-59); Bilirubin,Total 0.2 mg/dL (0.2-1.3); Blood Urea Nitrogen 11 mg/dL (9-20); Calcium 8.3 mg/dL (8.4-10.2); Carbon Dioxide 29 mmol/L (22-30); Chloride 102 mmol/L (98-107); Estimated CRCL calculation 90 ml/min; Estimated Glomerular Filt Rate > 60; Glucose 160 mg/dL (65-110); Magnesium 2.2 mg/dL (1.6-2.3); Phosphorus 3.4 mg/dL (2.5-4.5); Potassium 3.9 mmol/L (3.4-5.0); Sodium 136 mmol/L (137-145)
[2022-10-30 05:17] LABS: Anisocytosis 1+ (NORMAL); Macrocytosis 1+ (NORMAL); Microcytosis 1+ (NORMAL); Ovalocytes 1+ (NORMAL); Platelet Estimate Increased (Adequate); Poikilocytosis 1+ (NORMAL)
[2022-10-30 05:18] LABS: Hypochromasia 1+ (NORMAL); Schistocytes Rare (NORMAL)
[2022-10-30] MEDS: METOCLOPRAMIDE HCL INJ 10 MG/2 ML VIAL 5 MG IV PUSH ×3 (11:05→23:33)
--- NOTE | 2022-10-30 11:41 | PCSTNOTE ---
Bedside Swallow Evaluation attempted; patient vomited after one sip of water. Testing terminated. Will attempt again tomorrow.
--- NOTE | 2022-10-30 12:00 | PM.PNGS ---
Progress Note: A&P Assessment and Plan (1) Stercoral colitis: Code(s): K52.89 - Other specified noninfective gastroenteritis and colitis Status: Acute Assessment and Plan: exam benign, ostomy working well, yin TF at goal Subjective Subjective Date/Time Seen: 10/30/22 12:00 self extubated yesterday, no acute issues Review of Systems Review of Systems: ROS unobtainable: Yes unobtainable due to medical condition and unobtainable due to mental status Exam Const: General: ill appearing Other: baseline mental status Resp: Auscultation: diminished lung sounds Cardio: Rate: tachycardic Rhythm: regular rhythm GI: Inspection: normal to inspection and incision GI Palp: Yes abdominal tenderness, Yes Soft to palpation, No Guarding due to palpation present (GI) and No Rigid due to palpation Other: ostomy - +fxn drain - s/s drainage Objective Data Vital Signs Vital Signs: Vital Signs - 24 hr 10/29/22 13:15 10/29/22 14:15 10/29/22 14:00 Temperature Pulse Rate 77 69 78 Respiratory Rate 16 14 Blood Pressure Pulse Oximetry 95 Oxygen Delivery Mechanical Ventilation Oxygen Flow Rate Fraction of Inspired Oxygen 30 10/29/22 14:00 10/29/22 14:49 10/29/22 16:06 Temperature Pulse Rate 69 81 72 Respiratory Rate 15 12 Blood Pressure Pulse Oximetry Oxygen Delivery Oxygen Flow Rate Fraction of Inspired Oxygen 10/29/22 16:45 10/29/22 16:45 10/29/22 16:00 Temperature Pulse Rate 90 90 74 Respiratory Rate 22 H 22 H Blood Pressure Pulse Oximetry Oxygen Delivery Oxygen Flow Rate Fraction of Inspired Oxygen 10/29/22 18:00 10/29/22 14:00 10/29/22 16:00 Temperature Pulse Rate 84 66 84 Respiratory Rate 12 22 H Blood Pressure Pulse Oximetry 94 95 Oxygen Delivery Mechanical Ventilation Oxygen Flow Rate Fraction of Inspired Oxygen 30 10/29/22 16:00 10/29/22 16:00 10/29/22 18:00 Temperature 36.9 C Pulse Rate 70 76 Respiratory Rate 13 Blood Pressure 102/61 Pulse Oximetry 93 Oxygen Delivery Oxygen Flow Rate Fraction of Inspired Oxygen 30 10/29/22 20:02 10/29/22 20:06 10/29/22 20:00 Temperature Pulse Rate 69 73 77 Respiratory Rate 21 H 21 H 20 Blood Pressure Pulse Oximetry 98 Oxygen Delivery Nasal Cannula Oxygen Flow Rate 2 Fraction of Inspired Oxygen 10/29/22 20:00 10/29/22 20:00 10/29/22 20:00 Temperature 37.1 C Pulse Rate 74 73 73 Respiratory Rate 21 H 23 H Blood Pressure 104/58 L Pulse Oximetry 98 96 Oxygen Delivery Nasal Cannula Oxygen Flow Rate 2 Fraction of Inspired Oxygen 10/29/22 22:00 10/29/22 22:00 10/29/22 22:58 Temperature Pulse Rate 79 77 76 Respiratory Rate 30 H 26 H Blood Pressure 101/67 Pulse Oximetry 97 Oxygen Delivery Oxygen Flow Rate Fraction of Inspired Oxygen 10/29/22 22:58 10/30/22 00:00 10/30/22 00:00 Temperature 37.9 C H Pulse Rate 71 86 86 Respiratory Rate 25 H 22 H 22 H Blood Pressure 105/67 Pulse Oximetry 99 99 Oxygen Delivery Nasal Cannula Oxygen Flow Rate 2 Fraction of Inspired Oxygen 10/30/22 00:00 10/30/22 02:00 10/30/22 02:00 Temperature Pulse Rate 82 73 76 Respiratory Rate 28 H Blood Pressure 101/62 Pulse Oximetry 98 Oxygen Delivery Oxygen Flow Rate Fraction of Inspired Oxygen 10/30/22 04:00 10/30/22 04:00 10/30/22 04:00 Temperature 37.4 C Pulse Rate 84 84 79 Respiratory Rate 28 H 28 H Blood Pressure 100/61 Pulse Oximetry 97 97 Oxygen Delivery Nasal Cannula Oxygen Flow Rate 2 Fraction of Inspired Oxygen 10/30/22 06:00 10/30/22 06:00 10/30/22 06:34 Temperature Pulse Rate 74 74 79 Respiratory Rate 25 H 26 H Blood Pressure 106/62 Pulse Oximetry 96 Oxygen Delivery Oxygen Flow Rate Fraction of Inspired Oxygen 10/30/22 06:41 10/30/22 08:33 Temperature Pulse Rate 75 Respiratory Rate 28 H Blood
[2022-10-30 12:14] LABS: Device VENTILATOR
[2022-10-30 12:15] LABS: Arterial Blood Gas PEEP 5 cmH2O; Arterial Blood Gas Tidal Volume 320 ml; Arterial Blood Gas Vent Mode CMV; Arterial Blood Gas Ventilator rate 14 /MIN
--- NOTE | 2022-10-30 12:49 | PCFNICU ---
ICU Rounding Note: Pt current nutrition is NPO. Last recorded weight is 46.7 kg. Bowel Motility: ostomy Labs Reviewed:Glu 160, Cr 0.6,Alb 3.4,Na 136, Hgb 8.8,Hct 30.3 Meds Noted:Reglan,Vancomycin,Imipenem, Zofran Skin: WNL Additional Notes: Patient self extubated. Vomiting noted today. Speech Therapy evaluation terminated due to vomiting. Plans to attempt testing tomorrow. At this time patient is NPO. Agree with diet orders. Following daily in ICU rounds. Monitoring plan of care, weights, labs, intakes, tolerance every 3 days.
--- NOTE | 2022-10-30 14:11 | WPDINTPN ---
Progress Note: A&P Assessment and Plan (1) Acute respiratory failure: Code(s): J96.00 - Acute respiratory failure, unspecified whether with hypoxia or hypercapnia Status: Acute Assessment and Plan: Patient was intubated and placed on mechanical ventilation for general anesthesia 10/17 extubated 10/18 downgraded to step-down unit, CPT was ordered 10/19 Increased oxygen requirement overnight. Patient was hypoxic and pulling is oxygenating and biting on his restraints. He was re-intubated was unable to clear his secretions, was hypoxic on Airvo, he was also resisting suctioning for secretions. 10/29: Self extubated, initially was on Ventimask but was placed on 2 L nasal cannula and has been tolerating. Patient has been allowing the bedside RN to do suctioning and oral care -chest x-ray this morning shows:Opacities in the right lower lung zone consistent with atelectasis and/or pneumonia. Emphysema. -continue aggressive pulmonary toilet, even if patient has to be on CPT (2) Stercoral colitis: Code(s): K52.89 - Other specified noninfective gastroenteritis and colitis Status: Acute Assessment and Plan: Ischemic stercoral colitis secondary to chronic constipation and dilation of sigmoid colon 10/17/2022 status post Exploratory laparotomy, sigmoid colectomy, creation of end colostomy Brown liquid output from ostomy and ostomy appears slightly prolapsed, surgery aware Pain control MiraLax and Dulcolax for chronic constipation -patient has been extubated, NG tube is also, at with that -patient has had episodes of vomiting, obtain obstructive series - added small dose of Reglan -will have speech evaluation for bedside swallow (3) Septic shock: Code(s): A41.9 - Sepsis, unspecified organism; R65.21 - Severe sepsis with septic shock Status: Acute Assessment and Plan: Secondary to ischemic colitis and pneumonia Blood cultures are growing 1/2 Leuconostoc mesenteroides ssp cremoris which is likely contaminant Off Levophed 10/25/2022, patient developed leukocytosis, abdominal distension 10/25/2022 CT scan of the abdomen: ?Interval partial colectomy. New development of gas collection with surrounding phlegmonous change adjacent to the anastomotic site, suspicious for developing infection with possible leak.? Small pleural effusions. Bibasilar dependent airspace disease which may represent atelectasis or developing pneumonia. 10/25/[address]-guided abscess drainage adjacent Valorie pouch with catheter placement -continue imipenem and vancomycin (10/25) -10/23/2022 blood cultures negative x2 -10/26/2022: Sputum cultures growing normal oropharyngeal nayeli -11/22/2022 urine culture negative -10/28/2022 blood cultures negative WBC count stable (4) Influenza A: Code(s): J10.1 - Influenza due to other identified influenza virus with other respiratory manifestations Status: Acute Assessment and Plan: Patient tested positive for influenza A. Not sure if it is symptomatic as patient is unable to provide history Completed a five-day course of Tamiflu (5) Electrolyte abnormality: Code(s): E87.8 - Other disorders of electrolyte and fluid balance, not elsewhere classified Status: Acute Assessment and Plan: Potassium normalized after replacement (6) Anemia: Code(s): D64.9 - Anemia, unspecified Status: Acute Assessment and Plan: Hemoglobin has been trending down No obvious signs of bleeding Hemoglobin has been stable Transfuse if hemoglobin < 7.0 10/26/2022: Hemoglobin 6.8 this morning, 1 unit of packed RBCs being transfused Hemoglobin remains stable (7) Elevated LFTs: Code(s): R79.89 - Other specified abnormal findings of blood chemistry Status: Acute Assessment and Plan: Right upper quadrant ultrasound with no etiology for abnormal liver function tests -hepatitis panel was negative -LFTs trending down,
[2022-10-30] MEDS: FAMOTIDINE 20 MG/2 ML VIAL IV PUSH (21:36)
[2022-10-30] MEDS: ONDANSETRON INJ 4 MG/2 ML VIAL IV PUSH (22:27)
[2022-10-31] VITALS (12 sets, daily range): BP systolic 109–151; BP diastolic 64–74; PULSE 74–123; RESP 18–30; TEMP 36.4–38.1; O2SAT 94–100
[2022-10-31 00:38] LABS: Glucose Point of Care 151 mg/dl (65-105)
--- NOTE | 2022-10-31 01:55 | PC.NURSE ---
This patient, Ricky Swanson, was received from ICU 10 on 10/31/22 at 0155. Patient/family oriented to unit policies and routines.
--- NOTE | 2022-10-31 02:05 | PC.NURSE ---
This patient, Ricky Swanson, was transferred to [[id number]] on 10/31/22 at 0155. Personal belongings sent with patient. Report given to [TARYN Robison]. Appropriate documentation sent with patient.
[2022-10-31] MEDS: METOCLOPRAMIDE HCL INJ 10 MG/2 ML VIAL 5 MG IV PUSH ×2 (05:39→19:44)
[2022-10-31] MEDS: CENTRAL LINE FLUSH 10 ML IV PUSH ×4 (05:41→21:40)
[2022-10-31 05:49] LABS: Basophils Absolute Auto 0.1 K/mm3 (0.0-0.1); Basophils Percent Auto 0.2 % (0.2-1.2); Hematocrit 27.8 % (42.0-52.0); Immature Granulocyte Absolute 0.28 K/mm3 (0.00-0.031); Immature Granulocyte Percent A 1.1 % (0-0.5); Lymphocytes Absolute Auto 1.86 K/mm3 (0.9-3.2); Lymphocytes Percent Auto 7.3 % (18.3-44.2); Mean Corpuscular HGB Conc 28.8 g/dl (32-36); Mean Corpuscular Hemoglobin 23.3 pg (26-34); Mean Platelet Volume 9.6 fl (7.4-10.4); Monocytes Absolute Auto 2.1 K/mm3 (0.1-0.6); Monocytes Percent Auto 8.4 % (2.6-8.5); Neutrophils Absolute Auto 21.2 K/mm3 (1.3-6.7); Platelet Count Result 593 k/mm3 (150-375); Red Blood Count 3.43 M/mm3 (4.6-6.20); Red Cell Distribution Width 19.1 % (11.5-14.5); White Blood Count 25.5 K/mm3 (4.5-10.0)
[2022-10-31 05:52] LABS: Alanine Aminotransferase 91 U/L (6-50); Albumin Level 3.3 g/dL (3.5-5.1); Alkaline Phosphatase 95 U/L (38-126); Anion Gap 6 mmol/L (8-16); Aspartate Amino Transferase 70 U/L (17-59); Bilirubin,Total 0.4 mg/dL (0.2-1.3); Blood Urea Nitrogen 12 mg/dL (9-20); Carbon Dioxide 30 mmol/L (22-30); Chloride 105 mmol/L (98-107); Estimated CRCL calculation 89 ml/min; Estimated Glomerular Filt Rate > 60; Glucose 121 mg/dL (65-110); Magnesium 2.3 mg/dL (1.6-2.3); Phosphorus 2.8 mg/dL (2.5-4.5); Potassium 2.9 mmol/L (3.4-5.0); Sodium 141 mmol/L (137-145)
[2022-10-31 07:53] LABS: Hypochromasia 2+ (NORMAL); Platelet Estimate Increased (Adequate); Poikilocytosis 1+ (NORMAL)
[2022-10-31 07:54] LABS: Large Platelets Present; Macrocytosis 1+ (NORMAL)
[2022-10-31 07:55] LABS: Polychromasia 1+ (NORMAL); Schistocytes 1+ (NORMAL)
--- NOTE | 2022-10-31 09:57 | PM.IMPN ---
Progress Note: A&P Assessment and Plan (1) Acute respiratory failure: Code(s): J96.00 - Acute respiratory failure, unspecified whether with hypoxia or hypercapnia Status: Acute Assessment and Plan: Patient was intubated and placed on mechanical ventilation for general anesthesia 10/17 extubated 10/18 downgraded to step-down unit, CPT was ordered 10/19 Increased oxygen requirement overnight. Patient was hypoxic and pulling is oxygenating and biting on his restraints. He was re-intubated was unable to clear his secretions, was hypoxic on Airvo, he was also resisting suctioning for secretions. 10/29: Self extubated, initially was on Ventimask but was placed on 2 L nasal cannula and has been tolerating. Patient has been allowing the bedside RN to do suctioning and oral care 10/31 CXR stable (2) Stercoral colitis: Code(s): K52.89 - Other specified noninfective gastroenteritis and colitis Status: Acute Assessment and Plan: Ischemic stercoral colitis secondary to chronic constipation and dilation of sigmoid colon 10/17/2022 status post Exploratory laparotomy, sigmoid colectomy, creation of end colostomy 10/31 Failed BSS, reattempt tomorrow (3) Septic shock: Code(s): A41.9 - Sepsis, unspecified organism; R65.21 - Severe sepsis with septic shock Status: Acute Assessment and Plan: Secondary to ischemic colitis and pneumonia Blood cultures are growing 1/2 Leuconostoc mesenteroides ssp cremoris which is likely contaminant Off Levophed 10/25/2022, patient developed leukocytosis, abdominal distension 10/25/2022 CT scan of the abdomen: ?Interval partial colectomy. New development of gas collection with surrounding phlegmonous change adjacent to the anastomotic site, suspicious for developing infection with possible leak.? Small pleural effusions. Bibasilar dependent airspace disease which may represent atelectasis or developing pneumonia. 10/25/[address]-guided abscess drainage adjacent Valorie pouch with catheter placement -continue imipenem and vancomycin (10/25) -10/23/2022 blood cultures negative x2 -10/26/2022 Sputum cultures growing normal oropharyngeal nayeli -11/22/2022 urine culture negative -10/28/2022 blood cultures negative 10/31: WBC increased from 12 to 25, unsure of etiology, still on vanc + imipenem, will d/w ID pharm, recheck CT abd/pelvis d/t prior abscess (4) Influenza A: Code(s): J10.1 - Influenza due to other identified influenza virus with other respiratory manifestations Status: Acute Assessment and Plan: Patient tested positive for influenza A. Not sure if it is symptomatic as patient is unable to provide history Completed a five-day course of Tamiflu (5) Electrolyte abnormality: Code(s): E87.8 - Other disorders of electrolyte and fluid balance, not elsewhere classified Status: Acute Assessment and Plan: Potassium normalized after replacement (6) Anemia: Code(s): D64.9 - Anemia, unspecified Status: Acute Assessment and Plan: Hemoglobin has been trending down No obvious signs of bleeding Hemoglobin has been stable Transfuse if hemoglobin < 7.0 10/26/2022: Hemoglobin 6.8 this morning, 1 unit of packed RBCs being transfused Hemoglobin remains stable (7) Elevated LFTs: Code(s): R79.89 - Other specified abnormal findings of blood chemistry Status: Acute Assessment and Plan: Right upper quadrant ultrasound with no etiology for abnormal liver function tests -hepatitis panel was negative 10/31 LFTs trending back up slightly, monitor, unsure of etiology, consider GI consult? (8) Intra-abdominal abscess: Code(s): K65.1 - Peritoneal abscess Status: Acute Assessment and Plan: CT scan of the abdomen and pelvis as above -10/25/[address]-guided abscess drainage adjacent Valorie pouch with catheter placement -surgery following the patient -antibioti
--- NOTE | 2022-10-31 10:23 | PCSTNOTE ---
Therapist spoke with TARYN Saha, who reported that patient had vomited twice already this morning and recommended against attempting BSS today.
--- NOTE | 2022-10-31 11:45 | PM.PNGS ---
Progress Note: A&P Assessment and Plan (1) Stercoral colitis: Code(s): K52.89 - Other specified noninfective gastroenteritis and colitis Status: Acute Assessment and Plan: Multiple episodes of vomiting yesterday and today. Unable to complete bedside swallow with speech due to vomiting. Also with significant increase in WBC count this morning with fevers. Ostomy still functioning. Incision healing well. Keep NPO, start IV fluids, and may need to consider TPN if unable to tolerate oral intake over the next few days. Agree with CT abd/pelvis, will await results. (2) Intra-abdominal abscess: Code(s): K65.1 - Peritoneal abscess Status: Acute Assessment and Plan: Continue perc drain. Repeat CT abd/pelvis today to re-evaluate given elevated WBC count. (3) Leukocytosis: Code(s): D72.829 - Elevated white blood cell count, unspecified Status: Acute Assessment and Plan: WBC up to 25.5 from 14 with fevers. Agree with repeating CT abd/pelvis today, will await results. Continue IV antibiotics. Plan I have discussed the patient's case and plan of care with Dr. Perez. Subjective Subjective Date/Time Seen: 10/31/22 11:45 Post Op day: 14 Patient reports: vomiting and fever Interval history: Chart reviewed since last seen. Patient seen and examined with no family at the bedside. Spoke to nursing who reports patient has vomited x 2 this morning already and vomited multiple times yesterday. Bedside swallow was terminated yesterday due to patient vomiting after only taking in water. Speech recommending to not reattempt swallow study today due to persistent vomiting. Low grade fever overnight. Still having liquid output from ostomy. No other acute issues at this time. Review of Systems Review of Systems: ROS unobtainable: Yes unobtainable due to endotracheal tube Exam Const: General: comfortable, no acute distress and alert Orientation/consciousness: Other orientation findings (nonverbal) Other: baseline mental status GI: Inspection: non-distended and incision (dry and lencho intact) GI Palp: Yes Soft to palpation, No Tenderness to palpation present (GI) (unable to answer if pain but no grimacing) and No Guarding due to palpation present (GI) Auscultation: normal bowel sounds Other: ostomy functioning well Objective Data Vital Signs Vital Signs: Vital Signs - 24 hr 10/30/22 12:00 10/30/22 14:00 10/30/22 16:00 Temperature Pulse Rate 105 H 117 H 105 H Respiratory Rate Blood Pressure Pulse Oximetry Oxygen Delivery Oxygen Flow Rate Fraction of Inspired Oxygen 10/30/22 12:00 10/30/22 16:00 10/30/22 18:00 Temperature Pulse Rate 106 H 106 H 112 H Respiratory Rate 30 H 30 H Blood Pressure Pulse Oximetry 95 95 Oxygen Delivery Nasal Cannula Nasal Cannula Oxygen Flow Rate 2 2 Fraction of Inspired Oxygen 30 10/30/22 11:52 10/30/22 12:00 10/30/22 12:16 Temperature Pulse Rate 111 H 109 H 107 H Respiratory Rate 31 H 34 H 32 H Blood Pressure Pulse Oximetry 98 100 Oxygen Delivery Oxygen Flow Rate Fraction of Inspired Oxygen 10/30/22 12:30 10/30/22 13:29 10/30/22 13:30 Temperature Pulse Rate 129 H 117 H 117 H Respiratory Rate 27 H 31 H 20 Blood Pressure Pulse Oximetry 99 94 95 Oxygen Delivery Oxygen Flow Rate Fraction of Inspired Oxygen 10/30/22 13:45 10/30/22 14:00 10/30/22 14:01 Temperature Pulse Rate 128 H 111 H 113 H Respiratory Rate 30 H 30 H 29 H Blood Pressure 117/65 Pulse Oximetry 95 95 96 Oxygen Delivery Oxygen Flow Rate Fraction of Inspired Oxygen 10/30/22 14:15 10/30/22 14:30 10/30/22 17:05 Temperature Pulse Rate 111 H 107 H 109 H Respiratory Rate 25 H 33 H 32 H Blood Pressure Pulse Oximetry 96 95 94 Oxygen Delivery Oxygen Flow Rate Fraction of Inspired Oxygen 10/30/22 17:15 10/30/22 17:30 10/30/22 17:45 Temperature Pulse
[2022-10-31] MEDS: PANTOPRAZOLE SODIUM IV 40 MG VIAL IV PUSH (12:11)
[2022-10-31] MEDS: POTASSIUM CHLORIDE INJ 40 MEQ in SODIUM CHLORIDE 0.9% IV 500 ML 130 MEQ IVPB (12:12)
[2022-10-31 12:24] LABS: Glucose Point of Care 140 mg/dl (65-105)
[2022-10-31 16:43] LABS: Glucose Point of Care 152 mg/dl (65-105)
[2022-10-31] MEDS: KCL 20 MEQ/D5/0.9% SOD CHL 1,000 ML 100 ML IV CONT (17:17)
[2022-10-31] MEDS: FAMOTIDINE 20 MG/2 ML VIAL IV PUSH ×2 (18:54→21:40)
[2022-11-01] VITALS (12 sets, daily range): BP systolic 121–144; BP diastolic 60–78; PULSE 75–112; RESP 16–18; TEMP 37.3–38.3; O2SAT 95–100
[2022-11-01] MEDS: METOCLOPRAMIDE HCL INJ 10 MG/2 ML VIAL 5 MG IV PUSH ×5 (00:34→23:39)
[2022-11-01 00:36] LABS: Glucose Point of Care 151 mg/dl (65-105)
[2022-11-01] MEDS: KCL 20 MEQ/D5/0.9% SOD CHL 1,000 ML 100 ML IV CONT ×2 (03:57→18:17)
[2022-11-01] MEDS: CENTRAL LINE FLUSH 10 ML IV PUSH ×4 (05:49→20:01)
[2022-11-01 05:55] LABS: Basophils Absolute Auto 0.1 K/mm3 (0.0-0.1); Basophils Percent Auto 0.3 % (0.2-1.2); Eosinophils Percent Auto 0.1 % (0-4.4); Hematocrit 27.8 % (42.0-52.0); Hemoglobin 7.8 g/dL (14.0-18.0); Immature Granulocyte Absolute 0.36 K/mm3 (0.00-0.031); Immature Granulocyte Percent A 1.4 % (0-0.5); Mean Corpuscular HGB Conc 28.1 g/dl (32-36); Mean Corpuscular Hemoglobin 23.7 pg (26-34); Mean Corpuscular Volume 84.5 fl (80-100); Mean Platelet Volume 9.2 fl (7.4-10.4); Monocytes Absolute Auto 1.4 K/mm3 (0.1-0.6); Monocytes Percent Auto 5.1 % (2.6-8.5); Neutrophils Absolute Auto 23.1 K/mm3 (1.3-6.7); Neutrophils Percent Auto 87.1 % (45.5-73.1); Platelet Count Result 486 k/mm3 (150-375); Red Blood Count 3.29 M/mm3 (4.6-6.20); Red Cell Distribution Width 19.1 % (11.5-14.5); White Blood Count 26.5 K/mm3 (4.5-10.0)
[2022-11-01 06:05] LABS: Alanine Aminotransferase 92 U/L (6-50); Albumin Level 3.1 g/dL (3.5-5.1); Alkaline Phosphatase 85 U/L (38-126); Anion Gap 2 mmol/L (8-16); Aspartate Amino Transferase 44 U/L (17-59); Bilirubin,Total 0.5 mg/dL (0.2-1.3); Blood Urea Nitrogen 7 mg/dL (9-20); Calcium 7.8 mg/dL (8.4-10.2); Carbon Dioxide 30 mmol/L (22-30); Chloride 111 mmol/L (98-107); Estimated CRCL calculation 108 ml/min; Estimated Glomerular Filt Rate > 60; Glucose 134 mg/dL (65-110); Potassium 3.7 mmol/L (3.4-5.0); Sodium 143 mmol/L (137-145)
--- NOTE | 2022-11-01 07:52 | PM.IMPN ---
Progress Note: A&P Assessment and Plan (1) Acute respiratory failure: Code(s): J96.00 - Acute respiratory failure, unspecified whether with hypoxia or hypercapnia Status: Acute Assessment and Plan: Patient was intubated and placed on mechanical ventilation for general anesthesia 10/17 extubated 10/18 downgraded to step-down unit, CPT was ordered 10/19 Increased oxygen requirement overnight. Patient was hypoxic and pulling is oxygenating and biting on his restraints. He was re-intubated was unable to clear his secretions, was hypoxic on Airvo, he was also resisting suctioning for secretions. 10/29: Self extubated, initially was on Ventimask but was placed on 2 L nasal cannula and has been tolerating. Patient has been allowing the bedside RN to do suctioning and oral care 10/31 CXR stable 11/01 96% on 5L nc (2) Stercoral colitis: Code(s): K52.89 - Other specified noninfective gastroenteritis and colitis Status: Acute Assessment and Plan: Ischemic stercoral colitis secondary to chronic constipation and dilation of sigmoid colon 10/17/2022 status post Exploratory laparotomy, sigmoid colectomy, creation of end colostomy 10/31 Failed BSS, reattempt tomorrow 11/01 Unable to assess swallowing, cannot cooperate with examiner (3) Septic shock: Code(s): A41.9 - Sepsis, unspecified organism; R65.21 - Severe sepsis with septic shock Status: Acute Assessment and Plan: Secondary to ischemic colitis and pneumonia Blood cultures are growing 1/2 [place] mesenteroides ssp cremoris which is likely contaminant Off Levophed 10/25/2022, patient developed leukocytosis, abdominal distension 10/25/2022 CT scan of the abdomen: ?Interval partial colectomy. New development of gas collection with surrounding phlegmonous change adjacent to the anastomotic site, suspicious for developing infection with possible leak.? Small pleural effusions. Bibasilar dependent airspace disease which may represent atelectasis or developing pneumonia. 10/25/[address]-guided abscess drainage adjacent Valorie pouch with catheter placement -continue imipenem and vancomycin (10/25) -10/23/2022 blood cultures negative x2 -10/26/2022 Sputum cultures growing normal oropharyngeal nayeli -11/22/2022 urine culture negative -10/28/2022 blood cultures negative 10/31: WBC increased from 12 to 25, unsure of etiology, still on vanc + imipenem, will d/w ID pharm, recheck CT abd/pelvis d/t prior abscess 11/01: WBC increased again from 25 to 26, CT did not show any overt infection, unsure of etiology? will change abx today to vanc + cefepime + flagyl for possible abscess formation and aspiration PNA, d/c imipenem (4) Influenza A: Code(s): J10.1 - Influenza due to other identified influenza virus with other respiratory manifestations Status: Acute Assessment and Plan: Patient tested positive for influenza A. Not sure if it is symptomatic as patient is unable to provide history Completed a five-day course of Tamiflu (5) Electrolyte abnormality: Code(s): E87.8 - Other disorders of electrolyte and fluid balance, not elsewhere classified Status: Acute Assessment and Plan: Potassium normalized after replacement (6) Anemia: Code(s): D64.9 - Anemia, unspecified Status: Acute Assessment and Plan: Hemoglobin has been trending down No obvious signs of bleeding Hemoglobin has been stable Transfuse if hemoglobin < 7.0 10/26/2022: Hemoglobin 6.8 this morning, 1 unit of packed RBCs being transfused Hemoglobin remains stable (7) Elevated LFTs: Code(s): R79.89 - Other specified abnormal findings of blood chemistry Status: Acute Assessment and Plan: Right upper quadrant ultrasound with no etiology for abnormal liver function tests -hepatitis panel was negative 10/31 LFTs trending back up slightly, monitor, unsure of etiology, consider GI consult? 11/01 LFTs simba
[2022-11-01 08:11] LABS: Platelet Estimate Increased (Adequate)
[2022-11-01 08:12] LABS: Anisocytosis 3+ (NORMAL); Poikilocytosis 3+ (NORMAL); Schistocytes 2+ (NORMAL); Target Cells 2+ (NORMAL)
[2022-11-01] MEDS: SCOPOLAMINE 1.5 MG PATCH TRANSDERM (10:08)
[2022-11-01] MEDS: metroNIDAZOLE 500 MG/ISO 100ML 500 MG/100 ML BAG 100 MG IVPB ×2 (10:08→19:57)
[2022-11-01] MEDS: PANTOPRAZOLE SODIUM IV 40 MG VIAL IV PUSH (10:08)
[2022-11-01] MEDS: FAMOTIDINE 20 MG/2 ML VIAL IV PUSH ×2 (10:08→20:01)
--- NOTE | 2022-11-01 10:20 | PCSTNOTE ---
Please refer to the Bedside Swallow Evaluation in the EMR. Please note, silent aspiration cannot be ruled out at bedside.
--- NOTE | 2022-11-01 10:38 | PM.PNGS ---
Progress Note: A&P Assessment and Plan (1) Stercoral colitis: Code(s): K52.89 - Other specified noninfective gastroenteritis and colitis Status: Acute Assessment and Plan: abd CT reviewed c radiology, abscess resolved, some mild colitis, needs nutrition and will d/w primary team (2) Aspiration pneumonia: Code(s): J69.0 - Pneumonitis due to inhalation of food and vomit Status: Acute Assessment and Plan: cont abx, mgmt per primary team Subjective Subjective Date/Time Seen: 11/01/22 10:38 no acute issues, NPO since yest for emesis Review of Systems Review of Systems: ROS unobtainable: Yes unobtainable due to medical condition and unobtainable due to mental status Exam Const: General: no acute distress and ill appearing Resp: Auscultation: diminished lung sounds GI: Inspection: normal to inspection and incision GI Palp: No abdominal tenderness, Yes Soft to palpation, No Firmness to palpation present (GI), No Tenderness to palpation present (GI), No Guarding due to palpation present (GI) and No Rigid due to palpation Other: ostomy - +fxn, ELIA minimal s/s Objective Data Vital Signs Vital Signs: Vital Signs - 24 hr 10/31/22 12:00 10/31/22 16:00 10/31/22 12:00 Temperature 37.7 C H 37.7 C H Pulse Rate 113 H 117 H 110 H Respiratory Rate 24 H 24 H Blood Pressure 146/66 H 151/74 H Pulse Oximetry 99 100 Oxygen Delivery Oxygen Flow Rate 10/31/22 14:00 10/31/22 12:00 10/31/22 16:00 Temperature Pulse Rate 115 H Respiratory Rate Blood Pressure Pulse Oximetry 100 94 Oxygen Delivery Nasal Cannula Nasal Cannula Oxygen Flow Rate 5 4 10/31/22 16:00 10/31/22 18:00 10/31/22 20:00 Temperature 38.1 C H Pulse Rate 119 H 120 H 111 H Respiratory Rate 18 Blood Pressure 143/68 H Pulse Oximetry 96 Oxygen Delivery Oxygen Flow Rate 10/31/22 20:00 10/31/22 20:00 10/31/22 22:00 Temperature Pulse Rate 112 H 112 H 123 H Respiratory Rate 18 Blood Pressure Pulse Oximetry 96 Oxygen Delivery Nasal Cannula Oxygen Flow Rate 5 11/01/22 00:00 11/01/22 00:00 11/01/22 00:00 Temperature 37.4 C Pulse Rate 108 H 109 H 112 H Respiratory Rate 18 18 Blood Pressure 122/60 Pulse Oximetry 99 96 Oxygen Delivery Nasal Cannula Oxygen Flow Rate 5 11/01/22 02:00 11/01/22 04:00 11/01/22 04:00 Temperature Pulse Rate 102 H 95 95 Respiratory Rate 18 Blood Pressure Pulse Oximetry 96 Oxygen Delivery Nasal Cannula Oxygen Flow Rate 5 11/01/22 04:00 11/01/22 06:00 11/01/22 08:00 Temperature 37.3 C 38.3 C H Pulse Rate 97 102 H 91 Respiratory Rate 18 16 Blood Pressure 144/65 H 140/65 Pulse Oximetry 98 100 Oxygen Delivery Oxygen Flow Rate Intake/Output Intake/Output: Intake & Output 10/29/22 10/30/22 10/31/22 11/01/22 23:59 23:59 23:59 23:59 Intake Total 2215 1300 1465 1600 Output Total 2550 4300 1525 825 Balance -335 -3000 -60 775 Meds/Results Medications: Active Medications Generic Name Dose Route Start Last Admin Trade Name Freq PRN Reason Stop Dose Admin Bisacodyl 5 mg 10/17/22 07:31 Bisacodyl 5 Mg Tablet Ec PO QAM PRN Constipation Enoxaparin Sodium 40 mg 10/17/22 09:00 10/25/22 09:38 Enoxaparin 40 Mg/0.4 Ml Syringe SUB-Q 40 mg DAILY FARZAD Administration Famotidine 20 mg 10/17/22 09:00 11/01/22 10:08 Famotidine 20 Mg/2 Ml Vial IV PUSH 20 mg Q12HR FARZAD Administration Vancomycin HCl 1,750 mg in 500 mls @ 250 mls/hr 10/28/22 13:00 11/01/22 02:33 Vancomycin 1,750 Mg/D5w 500 Ml IVPB Infused Q12H FARZAD Infusion Potassium Chloride/Dextrose/Sod Cl 1,000 mls @ 100 mls/hr 10/31/22 13:15 11/01/22 03:57 Kcl 20 Meq/D5/0.9% Sod Chl IV CONT 100 mls/hr .Q10H FARZAD Administration Acetaminophen 650 mg in 65 mls @ 260 mls/hr 10/31/22 21:15 10/31/22 21:55 Ofirmev 650 Mg Ivpb IVPB 11/01/22 21:14 Infused Q6H PRN Infusion Chuy
--- NOTE | 2022-11-01 12:46 | PCNFU ---
Nutrition Follow-Up Complete: Inadequate oral intake related to altered GI function as evidenced by recent colectomy with end colostomy. Goal: Meet estimated nutrition needs when medically able - not meeting goal Pt current nutrition is NPO. Nutrition recommendation: Initiate TPN Clinmix 5/15@ 50 ml/h with lipids: 1350 kcals, 60 g protein, 1450 ml total volume. Monitor triglycerides Last recorded weight is 48.1 kg. Bowel Motility: Last BM 10/31/22 per ostomy Labs Reviewed: Hgb 7.8, Hct 27.8, Alb 3.1, Cre 0.5 Meds Noted: Miralax, Zofran, Reglan Skin: incision to abdomen Additional Notes: Spoke to RN re: patient feeding. He self-extubated and was moved to IMU. He is likely to pull out an NG. Per RN, PEG is being discussed. In the meantime, TPN recommended until PEG access can be established to start tube feeding. Recommend Clinmix 5/15 @ 50 ml/h with lipids, 1350 kcals, 60g protein, 1450 ml total volume Monitoring plan of care, weights, labs, intakes, tolerance Follow up daily in ICU rounds
[2022-11-01 14:23] LABS: Glucose Point of Care 139 mg/dl (65-105)
[2022-11-01 17:54] LABS: Glucose Point of Care 117 mg/dl (65-105)
[2022-11-02] VITALS (11 sets, daily range): BP systolic 118–129; BP diastolic 59–68; PULSE 60–106; RESP 16–20; TEMP 36.7–37.4; O2SAT 95–100
[2022-11-02 01:48] LABS: Glucose Point of Care 137 mg/dl (65-105)
[2022-11-02 05:18] LABS: Glucose Point of Care 138 mg/dl (65-105)
[2022-11-02] MEDS: KCL 20 MEQ/D5/0.9% SOD CHL 1,000 ML 100 ML IV CONT ×2 (05:53→18:35)
[2022-11-02] MEDS: METOCLOPRAMIDE HCL INJ 10 MG/2 ML VIAL 5 MG IV PUSH ×3 (05:53→23:37)
[2022-11-02] MEDS: metroNIDAZOLE 500 MG/ISO 100ML 500 MG/100 ML BAG 100 MG IVPB ×3 (05:54→21:40)
[2022-11-02] MEDS: CENTRAL LINE FLUSH 10 ML IV PUSH ×4 (05:54→21:41)
[2022-11-02 06:11] LABS: Estimated CRCL calculation 108 ml/min; Estimated Glomerular Filt Rate > 60
--- NOTE | 2022-11-02 08:05 | PM.PNGS ---
Progress Note: A&P Assessment and Plan (1) Stercoral colitis: Code(s): K52.89 - Other specified noninfective gastroenteritis and colitis Status: Acute Assessment and Plan: abd CT reviewed c radiology, abscess resolved, some mild colitis, needs nutrition and was d/w primary team. At this time it appears discussions were undertaken with the patient's POA and considerations are being made for comfort care and hospice in view of the multiple medical problems revealed including some hepatic vein thrombosis, persistent colitis, repeat pneumonitis secondary to aspiration and evidence of emphysema. (2) Aspiration pneumonia: Code(s): J69.0 - Pneumonitis due to inhalation of food and vomit Status: Acute Assessment and Plan: cont abx, mgmt per primary team If comfort care and hospice not selected and continued pleural care needed would recommend initial start of TPN via PICC line. Keep and patient NPO, and then consider PEG tube for future nutrition when pacing shows that he is stable. Subjective Subjective Date/Time Seen: 11/02/22 08:05 Post Op day: POD# 16 Patient reports: other (Unable to communicate) Interval history: nurses report not much change overnight. Did appear to the night nurse that the ostomy was going to begin leaking so she did change that. CT scan report noted and notes from hospitalist regarding hospice consult and poor prognosis noted. Exam Const: General: no acute distress and ill appearing Resp: Auscultation: diminished lung sounds GI: Inspection: normal to inspection and incision GI Palp: No abdominal tenderness, Yes Soft to palpation, No Firmness to palpation present (GI), No Tenderness to palpation present (GI), No Guarding due to palpation present (GI) and No Rigid due to palpation Other: ostomy - +fxn, ELIA minimal s/s Discussed with nurse regarding better security on the left lower quadrant percutaneous drain since patient has history of pulling on tubes. If family decides to pursue comfort care and hospice this can probably be removed since CT showed the abscess that it was draining is completely collapsed. Objective Data Vital Signs Vital Signs: Vital Signs - 24 hr 11/01/22 12:00 11/01/22 10:00 11/01/22 12:00 Temperature 37.8 C H Pulse Rate 89 95 97 Respiratory Rate 16 Blood Pressure 127/78 Pulse Oximetry 100 Oxygen Delivery Oxygen Flow Rate 11/01/22 14:00 11/01/22 16:00 11/01/22 12:00 Temperature Pulse Rate 92 92 Respiratory Rate Blood Pressure Pulse Oximetry 96 Oxygen Delivery Nasal Cannula Oxygen Flow Rate 4 11/01/22 16:00 11/01/22 16:00 11/01/22 18:00 Temperature 37.4 C Pulse Rate 108 H 100 Respiratory Rate 18 Blood Pressure 128/63 Pulse Oximetry 97 98 Oxygen Delivery Nasal Cannula Oxygen Flow Rate 4 11/01/22 20:00 11/02/22 00:00 11/01/22 20:00 Temperature 37.3 C 37.4 C Pulse Rate 85 80 Respiratory Rate 16 18 Blood Pressure 121/72 125/67 Pulse Oximetry 100 100 99 Oxygen Delivery Nasal Cannula Oxygen Flow Rate 4 11/02/22 00:00 11/01/22 20:00 11/01/22 22:00 Temperature Pulse Rate 75 78 Respiratory Rate Blood Pressure Pulse Oximetry 100 Oxygen Delivery Nasal Cannula Oxygen Flow Rate 4 11/02/22 00:00 11/02/22 01:59 11/02/22 04:00 Temperature 37.3 C Pulse Rate 71 73 72 Respiratory Rate 16 Blood Pressure 123/68 Pulse Oximetry 100 Oxygen Delivery Oxygen Flow Rate 11/02/22 04:00 11/02/22 06:00 11/02/22 04:00 Temperature Pulse Rate 75 60 Respiratory Rate Blood Pressure Pulse Oximetry 99 Oxygen Delivery Nasal Cannula Oxygen Flow Rate 3 Intake/Output Intake/Output: Intake & Output 10/30/22 10/31/22 11/01/22 11/02/22 23:59 23:59 23:59 23:59 Intake Total 1300 1465 3400 1250 Output Total 4300 1525 2000 835 Balance -3000 -60 1400 415 Meds/Results Medications: Active Medications Generic Name Do
[2022-11-02] MEDS: PANTOPRAZOLE SODIUM IV 40 MG VIAL IV PUSH (09:07)
[2022-11-02] MEDS: FAMOTIDINE 20 MG/2 ML VIAL IV PUSH ×2 (09:07→21:39)
--- NOTE | 2022-11-02 11:50 | PM.IMPN ---
Progress Note: A&P Assessment and Plan (1) Acute respiratory failure: Code(s): J96.00 - Acute respiratory failure, unspecified whether with hypoxia or hypercapnia Status: Acute Assessment and Plan: patient self extubated himself currently on 2 L of oxygen saturating well no acute distress (2) Stercoral colitis: Code(s): K52.89 - Other specified noninfective gastroenteritis and colitis Status: Acute Assessment and Plan: Ischemic stercoral colitis secondary to chronic constipation and dilation of sigmoid colon 10/17/2022 status post Exploratory laparotomy, sigmoid colectomy, creation of end colostomy 10/31 Failed BSS, reattempt tomorrow 11/01 Unable to assess swallowing, cannot cooperate with examiner patient not a candidate for a PEG tube placement as he is will likely pull the tube out (3) Septic shock: Code(s): A41.9 - Sepsis, unspecified organism; R65.21 - Severe sepsis with septic shock Status: Acute Assessment and Plan: patient had high leukocyte count and abdominal distention for which he underwent partial colectomy. Status post CT-guided abscess drainage from the adjacent Valorie's pouch catheter was placed there is no drainage from the site anymore. Blood cultures so far negative. WBC count continues to increase etiology of infection is still unclear currently on vancomycin cefepime and Flagyl. Possible cause aspiration pneumonia due to patient's a medical condition (4) Influenza A: Code(s): J10.1 - Influenza due to other identified influenza virus with other respiratory manifestations Status: Acute Assessment and Plan: Patient tested positive for influenza A. Completed a five-day course of Tamiflu (5) Electrolyte abnormality: Code(s): E87.8 - Other disorders of electrolyte and fluid balance, not elsewhere classified Status: Acute Assessment and Plan: back to baseline (6) Anemia: Code(s): D64.9 - Anemia, unspecified Status: Acute Assessment and Plan: Hemoglobin has been trending down No obvious signs of bleeding Hemoglobin has been stable Transfuse if hemoglobin < 7.0 10/26/2022: Hemoglobin 6.8 this morning, 1 unit of packed RBCs being transfused Hemoglobin remains stable will recheck labs in the morning possible cause of anemia could be nutritional (7) Elevated LFTs: Code(s): R79.89 - Other specified abnormal findings of blood chemistry Status: Acute Assessment and Plan: liver ultrasound normal. Monitor liver functions (8) Intra-abdominal abscess: Code(s): K65.1 - Peritoneal abscess Status: Acute Assessment and Plan: as above Plan DVT prophylaxis with Lovenox GI prophylaxis with PPI Code status full code patient has continued to worsen over time his nutritional status is poor also poor respiratory toilet, has severe emphysema risk of aspiration pneumonia, concerned about the G-tube, keeping all of the factors in play, I discussed with family about possible hospice care and comfort measures Hospice consult is ordered and family would like to speak with them tomorrow about options before making any code status decisions. s. Time Spent With Patient Time with patient: 25 - 35 minutes Subjective Date/time seen: 11/02/22 11:50 Interval history: Patient nonverbal lying comfortably in bed eyes wide open little agitated and asking questions Review of Systems Review of Systems: ROS unobtainable: Yes unobtainable due to mental status Exam Const: General: comfortable Other: in a position HENMT: Mouth: Yes moist mucous membranes Eyes: General: appearance normal, both eyes and all related structures Neck: Neck: supple and no JVD Resp: Effort & Inspection: normal respiratory effort Cardio: Rate: regular rate GI: GI Palp: Yes Soft to palpation Auscultation: normal bowel sounds Neuro: Motor exam (neuro): Abno
[2022-11-02 12:02] LABS: Glucose Point of Care 115 mg/dl (65-105)
[2022-11-02 13:06] LABS: Hematocrit 28.5 % (42.0-52.0); Hemoglobin 8.1 g/dL (14.0-18.0); Mean Corpuscular HGB Conc 28.4 g/dl (32-36); Mean Corpuscular Hemoglobin 23.5 pg (26-34); Mean Corpuscular Volume 82.8 fl (80-100); Mean Platelet Volume 9.3 fl (7.4-10.4); Platelet Count Result 474 k/mm3 (150-375); Red Blood Count 3.44 M/mm3 (4.6-6.20); Red Cell Distribution Width 18.5 % (11.5-14.5); White Blood Count 15.1 K/mm3 (4.5-10.0)
[2022-11-02 16:18] LABS: Alanine Aminotransferase 66 U/L (6-50); Albumin Level 2.7 g/dL (3.5-5.1); Alkaline Phosphatase 72 U/L (38-126); Anion Gap 8 mmol/L (8-16); Aspartate Amino Transferase 33 U/L (17-59); Bilirubin,Total 0.4 mg/dL (0.2-1.3); Blood Urea Nitrogen 4 mg/dL (9-20); Calcium 7.2 mg/dL (8.4-10.2); Carbon Dioxide 24 mmol/L (22-30); Chloride 107 mmol/L (98-107); Estimated CRCL calculation 131 ml/min; Estimated Glomerular Filt Rate > 60; Glucose 100 mg/dL (65-110); Potassium 3.5 mmol/L (3.4-5.0); Sodium 139 mmol/L (137-145)
[2022-11-02 17:48] LABS: Glucose Point of Care 121 mg/dl (65-105)
[2022-11-02 23:30] LABS: Glucose Point of Care 108 mg/dl (65-105)
[2022-11-03] VITALS (13 sets, daily range): BP systolic 113–154; BP diastolic 56–72; PULSE 67–103; RESP 14–20; TEMP 36.3–37; O2SAT 91–100
[2022-11-03] MEDS: METOCLOPRAMIDE HCL INJ 10 MG/2 ML VIAL 5 MG IV PUSH ×4 (05:52→23:39)
[2022-11-03] MEDS: metroNIDAZOLE 500 MG/ISO 100ML 500 MG/100 ML BAG 100 MG IVPB ×3 (05:53→21:35)
[2022-11-03] MEDS: CENTRAL LINE FLUSH 10 ML IV PUSH ×4 (05:53→21:36)
[2022-11-03 06:10] LABS: Glucose Point of Care 123 mg/dl (65-105)
[2022-11-03] MEDS: PANTOPRAZOLE SODIUM IV 40 MG VIAL IV PUSH (09:43)
[2022-11-03] MEDS: FAMOTIDINE 20 MG/2 ML VIAL IV PUSH ×2 (09:43→21:35)
[2022-11-03 09:50] LABS: Basophils Absolute Auto 0.1 K/mm3 (0.0-0.1); Basophils Percent Auto 0.4 % (0.2-1.2); Eosinophils Absolute Auto 0.5 K/mm3 (0-0.3); Eosinophils Percent Auto 3.3 % (0-4.4); Hematocrit 28.9 % (42.0-52.0); Hemoglobin 8.4 g/dL (14.0-18.0); Immature Granulocyte Absolute 0.09 K/mm3 (0.00-0.031); Immature Granulocyte Percent A 0.7 % (0-0.5); Lymphocytes Percent Auto 13.8 % (18.3-44.2); Mean Corpuscular HGB Conc 29.1 g/dl (32-36); Mean Corpuscular Hemoglobin 23.9 pg (26-34); Mean Corpuscular Volume 82.3 fl (80-100); Mean Platelet Volume 9.5 fl (7.4-10.4); Monocytes Absolute Auto 0.7 K/mm3 (0.1-0.6); Monocytes Percent Auto 4.9 % (2.6-8.5); Neutrophils Absolute Auto 10.6 K/mm3 (1.3-6.7); Neutrophils Percent Auto 76.9 % (45.5-73.1); Platelet Count Result 541 k/mm3 (150-375); Red Blood Count 3.51 M/mm3 (4.6-6.20); Red Cell Distribution Width 18.3 % (11.5-14.5); White Blood Count 13.8 K/mm3 (4.5-10.0)
[2022-11-03 10:04] LABS: Magnesium 1.9 mg/dL (1.6-2.3)
[2022-11-03] MEDS: KCL 20 MEQ/D5/0.9% SOD CHL 1,000 ML 100 ML IV CONT (11:01)
[2022-11-03 11:51] LABS: Glucose Point of Care 109 mg/dl (65-105)
--- NOTE | 2022-11-03 11:58 | PM.IMPN ---
Progress Note: A&P Assessment and Plan (1) Acute respiratory failure: Code(s): J96.00 - Acute respiratory failure, unspecified whether with hypoxia or hypercapnia Status: Acute Assessment and Plan: patient self extubated himself currently on 2 L of oxygen saturating well no acute distress (2) Stercoral colitis: Code(s): K52.89 - Other specified noninfective gastroenteritis and colitis Status: Acute Assessment and Plan: Ischemic stercoral colitis secondary to chronic constipation and dilation of sigmoid colon 10/17/2022 status post Exploratory laparotomy, sigmoid colectomy, creation of end colostomy 10/31 Failed BSS, reattempt tomorrow 11/01 Unable to assess swallowing, cannot cooperate with examiner patient not a candidate for a PEG tube placement as he is will likely pull the tube out patient continues to appear guarded GI consult from surgery noted plan is to do TPN via PICC line initially and possibly go to pact team placement. Patient not swallowing at all patient needs hall clerk air will call the family that the sister Crystal and discussed further long-term care plans. (3) Septic shock: Code(s): A41.9 - Sepsis, unspecified organism; R65.21 - Severe sepsis with septic shock Status: Acute Assessment and Plan: WBC count continues to increase etiology of infection is still unclear currently on vancomycin cefepime and Flagyl. Possible cause aspiration pneumonia due to patient's a medical condition 11/03 patient not in any septic shock continue current antibiotics vital signs are stable (4) Influenza A: Code(s): J10.1 - Influenza due to other identified influenza virus with other respiratory manifestations Status: Acute Assessment and Plan: Patient tested positive for influenza A. Completed a five-day course of Tamiflu (5) Electrolyte abnormality: Code(s): E87.8 - Other disorders of electrolyte and fluid balance, not elsewhere classified Status: Acute Assessment and Plan: back to baseline (6) Anemia: Code(s): D64.9 - Anemia, unspecified Status: Acute Assessment and Plan: No obvious signs of bleeding Hemoglobin has been stable last hemoglobin and hematocrit 8.1/28.5 Transfuse if hemoglobin < 7.0 will recheck labs in the morning possible cause of anemia could be nutritional (7) Elevated LFTs: Code(s): R79.89 - Other specified abnormal findings of blood chemistry Status: Acute Assessment and Plan: liver ultrasound normal. Monitor liver functions (8) Intra-abdominal abscess: Code(s): K65.1 - Peritoneal abscess Status: Acute Assessment and Plan: as above Plan DVT prophylaxis with Lovenox GI prophylaxis with PPI Code status full code patient has continued to worsen over time his nutritional status is poor also poor respiratory toilet, has severe emphysema risk of aspiration pneumonia, concerned about the G-tube, keeping all of the factors in play, I discussed with family about possible hospice care and comfort measures would like to speak with them tomorrow about options before making any code status decisions. s. Time Spent With Patient Time with patient: 25 - 35 minutes Subjective Date/time seen: 11/03/22 11:58 Interval history: Patient is still nonverbal follows commands may try giving him ice chips , he was unable swallow. Review of Systems Review of Systems: ROS unobtainable: Yes unobtainable due to mental status Exam Narrative: GENERAL: no acute distress. HEAD: Normocephalic, atraumatic. NECK: Supple. No adenopathy, no masses. RESPIRATORY: Airway patent, respirations nonlabored. Clear to auscultation bilaterally, no rales, rhonchi, wheezing. CARDIOVASCULAR: Regular rate and rhythm without murmurs, rubs, or gallops. Peripheral pulses 2+ and equal bilaterally. ABDOMINAL: Soft, nontender, nondistended, no hepatosplenomegaly.
--- NOTE | 2022-11-03 16:55 | PM.PNGS ---
Progress Note: A&P Assessment and Plan (1) Stercoral colitis: Code(s): K52.89 - Other specified noninfective gastroenteritis and colitis Status: Acute Assessment and Plan: abd /pelvic CT showed abscess in pelvis resolved, some mild colitis throughout the colon, needs nutrition and was d/w primary team on Friday by Dr. Perez. At this time it appears discussions were undertaken with the patient's POA and considerations are being made for comfort care and hospice in view of the multiple medical problems revealed including some hepatic vein thrombosis, persistent colitis, repeat pneumonitis secondary to aspiration and evidence of emphysema. repairs the patient will not be able to go back to oral intake. He may meet need evaluation by GI for PEG tube placement full efforts are to be made to continue to treat him. (2) Aspiration pneumonia: Code(s): J69.0 - Pneumonitis due to inhalation of food and vomit Status: Acute Assessment and Plan: cont abx, mgmt per primary team If comfort care and hospice not selected and continued Complete medical care needed would recommend initial start of TPN via his current PICC line. Keep and patient NPO, and then consider GI consultation possiblePEG tube for future nutrition when medically stable to proceed for endoscopic placement. (3) Intra-abdominal abscess: Code(s): K65.1 - Peritoneal abscess Status: Acute Assessment and Plan: CT last Friday showed abscess cavity collapsed down around the drain. Nurses documented 20 cc out for 24 hours on 11/02. Nothing yet documented for 11 03. Possibly could be removed specially if family is deciding patient will go to hospice. Will wait Dr. Miranda decision on Friday has he is more familiar with the patient and will have another 24 hours to see how much drainage is happening.. Subjective Subjective Date/Time Seen: 11/03/22 16:55 Post Op day: POD #17 Patient reports: other ( Patient does not communicate ) Interval history: nurse reports that family was unavailable to make decisions yesterday and they will try again today. Apparently consideration is given to comfort care and hospice at this point. Will await disposition on this. Review of Systems Review of Systems: ROS unobtainable: Yes unobtainable due to medical condition Exam Const: General: no acute distress and ill appearing Resp: Auscultation: diminished lung sounds GI: Inspection: normal to inspection and incision GI Palp: No abdominal tenderness, Yes Soft to palpation, No Firmness to palpation present (GI), No Tenderness to palpation present (GI), No Guarding due to palpation present (GI) and No Rigid due to palpation Auscultation: normal bowel sounds Other: ostomy : [place] and- +fxn, left lower quadrant percutaneous drain minimal out and probably can be removed tomorrow (check with Dr. Perez) Yesterday I discussed with nurse regarding better security on the left lower quadrant percutaneous drain since patient has history of pulling on tubes. It is taped in position better today. If family decides to pursue comfort care and hospice this can probably be removed since CT showed the abscess that it was draining is completely collapsed. Objective Data Vital Signs Vital Signs: Vital Signs - 24 hr 11/02/22 20:00 11/03/22 00:00 11/02/22 20:00 Temperature 37.4 C 37.0 C Pulse Rate 106 H 67 98 Respiratory Rate 18 18 Blood Pressure 127/59 L 120/56 L Pulse Oximetry 97 98 Oxygen Delivery Oxygen Flow Rate 11/02/22 22:00 11/03/22 00:00 11/02/22 20:00 Temperature Pulse Rate 90 75 Respiratory Rate Blood Pressure Pulse Oximetry 96 Oxygen Delivery Nasal Cannula Oxygen Flow Rate 2 11/03/22 00:00 11/03/22 02:00 11/03/22 04:00 Temperature Pulse Rate 86 Respiratory Rate Blood Pressure Pulse Oximetry 95 97 Oxygen Delivery Nasal Cannula Nasal Cannula Oxygen Flow Rate 2 2 10/24
[2022-11-03 18:59] LABS: Glucose Point of Care 124 mg/dl (65-105)
[2022-11-03 23:59] LABS: Glucose Point of Care 103 mg/dl (65-105)
[2022-11-04] VITALS (14 sets, daily range): BP systolic 111–120; BP diastolic 60–71; PULSE 65–101; RESP 14–20; TEMP 36.6–37.2; O2SAT 94–100; BMI 14.7
[2022-11-04] MEDS: KCL 20 MEQ/D5/0.9% SOD CHL 1,000 ML 100 ML IV CONT ×2 (01:19→13:58)
[2022-11-04 05:02] LABS: Estimated CRCL calculation 105 ml/min; Estimated Glomerular Filt Rate > 60
[2022-11-04] MEDS: metroNIDAZOLE 500 MG/ISO 100ML 500 MG/100 ML BAG 100 MG IVPB ×3 (05:11→21:06)
[2022-11-04] MEDS: METOCLOPRAMIDE HCL INJ 10 MG/2 ML VIAL 5 MG IV PUSH ×2 (05:11→12:00)
[2022-11-04] MEDS: CENTRAL LINE FLUSH 10 ML IV PUSH ×4 (05:12→21:06)
[2022-11-04 06:18] LABS: Glucose Point of Care 165 mg/dl (65-105)
[2022-11-04] MEDS: PANTOPRAZOLE SODIUM IV 40 MG VIAL IV PUSH (10:09)
[2022-11-04] MEDS: FAMOTIDINE 20 MG/2 ML VIAL IV PUSH ×2 (10:09→21:06)
[2022-11-04] MEDS: SCOPOLAMINE 1.5 MG PATCH TRANSDERM (10:10)
--- NOTE | 2022-11-04 10:37 | PM.IMPN ---
Progress Note: A&P Assessment and Plan (1) Aspiration pneumonia: Code(s): J69.0 - Pneumonitis due to inhalation of food and vomit Status: Acute Assessment and Plan: cont abx, mgmt per primary team If comfort care and hospice not selected and continued Complete medical care needed would recommend initial start of TPN via his current PICC line. Keep and patient NPO, and then consider GI consultation possiblePEG tube for future nutrition when medically stable to proceed for endoscopic placement. (2) Intra-abdominal abscess: Code(s): K65.1 - Peritoneal abscess Status: Acute Assessment and Plan: CT last Friday showed abscess cavity collapsed down around the drain. Nurses documented 20 cc out for 24 hours on 11/02. Nothing yet documented for 11 03. Possibly could be removed specially if family is deciding patient will go to hospice. Will wait Dr. Miranda decision on Friday has he is more familiar with the patient and will have another 24 hours to see how much drainage is happening.. (3) Acute respiratory failure: Code(s): J96.00 - Acute respiratory failure, unspecified whether with hypoxia or hypercapnia Status: Acute Assessment and Plan: patient self extubated himself currently on 2 L of oxygen saturating well no acute distress (4) Septic shock: Code(s): A41.9 - Sepsis, unspecified organism; R65.21 - Severe sepsis with septic shock Status: Acute Assessment and Plan: WBC count continues to increase etiology of infection is still unclear currently on vancomycin cefepime and Flagyl. Possible cause aspiration pneumonia due to patient's a medical condition 11/03 patient not in any septic shock continue current antibiotics vital signs are stable (5) Influenza A: Code(s): J10.1 - Influenza due to other identified influenza virus with other respiratory manifestations Status: Acute Assessment and Plan: Patient tested positive for influenza A. Completed a five-day course of Tamiflu (6) Electrolyte abnormality: Code(s): E87.8 - Other disorders of electrolyte and fluid balance, not elsewhere classified Status: Acute Assessment and Plan: back to baseline (7) Anemia: Code(s): D64.9 - Anemia, unspecified Status: Acute Assessment and Plan: No obvious signs of bleeding Hemoglobin has been stable last hemoglobin and hematocrit 8.1/28.5 Transfuse if hemoglobin < 7.0 will recheck labs in the morning possible cause of anemia could be nutritional (8) Elevated LFTs: Code(s): R79.89 - Other specified abnormal findings of blood chemistry Status: Acute Assessment and Plan: liver ultrasound normal. Monitor liver functions (9) Stercoral colitis: Code(s): K52.89 - Other specified noninfective gastroenteritis and colitis Status: Acute Assessment and Plan: Ischemic stercoral colitis secondary to chronic constipation and dilation of sigmoid colon 10/17/2022 status post Exploratory laparotomy, sigmoid colectomy, creation of end colostomy 10/31 Failed BSS, reattempt tomorrow 11/01 Unable to assess swallowing, cannot cooperate with examiner patient not a candidate for a PEG tube placement as he is will likely pull the tube out patient continues to appear guarded GI consult is to do TPN via PICC line initially and possibly go to pact team placement. Patient not swallowing at all patient needs warrant clerk air will call the family that the sister Crystal and discussed further long-term care plans. 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
[2022-11-04 11:09] LABS: Alanine Aminotransferase 46 U/L (6-50); Albumin Level 3.1 g/dL (3.5-5.1); Alkaline Phosphatase 73 U/L (38-126); Anion Gap 6 mmol/L (8-16); Aspartate Amino Transferase 33 U/L (17-59); Bilirubin,Total 0.4 mg/dL (0.2-1.3); Blood Urea Nitrogen 5 mg/dL (9-20); Calcium 7.9 mg/dL (8.4-10.2); Carbon Dioxide 26 mmol/L (22-30); Chloride 108 mmol/L (98-107); Estimated CRCL calculation 105 ml/min; Estimated Glomerular Filt Rate > 60; Glucose 118 mg/dL (65-110); Potassium 3.5 mmol/L (3.4-5.0); Sodium 140 mmol/L (137-145)
[2022-11-04 11:16] LABS: Hematocrit 29.5 % (42.0-52.0); Hemoglobin 8.5 g/dL (14.0-18.0); Mean Corpuscular HGB Conc 28.8 g/dl (32-36); Mean Corpuscular Hemoglobin 23.3 pg (26-34); Mean Corpuscular Volume 80.8 fl (80-100); Mean Platelet Volume 9.2 fl (7.4-10.4); Platelet Count Result 562 k/mm3 (150-375); Red Blood Count 3.65 M/mm3 (4.6-6.20); Red Cell Distribution Width 18.1 % (11.5-14.5); White Blood Count 12.8 K/mm3 (4.5-10.0)
[2022-11-04 11:56] LABS: Glucose Point of Care 127 mg/dl (65-105)
--- NOTE | 2022-11-04 13:09 | PM.PNGS ---
Progress Note: A&P Assessment and Plan (1) Stercoral colitis: Code(s): K52.89 - Other specified noninfective gastroenteritis and colitis Status: Acute Assessment and Plan: Over 2 weeks post-op from ex lap, sigmoid colectomy with creation end colostomy. Ostomy functioning well. Still NPO as patient was vomiting last week and has now failed swallow evals. Family and Hospitalist still having conversations regarding comfort measures versus continued aggressive treatment. Patient's father will be visiting today and the patient will have a repeat swallow eval or possibly modified barium swallow as he has been without nutrition for several days. Will need alternate means of nutrition if he fails his swallow and family wants to continue medical treatment. (2) Aspiration pneumonia: Code(s): J69.0 - Pneumonitis due to inhalation of food and vomit Status: Acute Assessment and Plan: Continue abx and management per primary service. (3) Intra-abdominal abscess: Code(s): K65.1 - Peritoneal abscess Status: Acute Assessment and Plan: CT 11/01/22 showed perc drain in place with no residual abscess, but mild colitis throughout the colon. No output from perc drain x [address] Perez and he requested this to be removed. I removed the perc drain at the bedside today without any issues. Continue with medical management for colitis. Plan I have discussed the patient's case and plan of care with Dr. Perez. Subjective Subjective Date/Time Seen: 11/04/22 13:09 Patient reports: afebrile (since 11/01/22) Interval history: Patient seen and examined, no family at the bedside. Chart reviewed. No acute changes overnight. Nursing reports patient is to have a swallow eval today with his father present to installer helper in decision making for plan of care. Still NPO. Ostomy functioning well with the bag leaking upon arrival to the room. No output from perc drain since 11/02/22. Review of Systems Review of Systems: ROS unobtainable: Yes unobtainable due to medical condition Exam Const: General: comfortable and no acute distress Orientation/consciousness: Other orientation findings (at baseline ) GI: Inspection: non-distended and incision (dry and lencho intact, healing well) GI Palp: Yes Soft to palpation, No Tenderness to palpation present (GI) (difficult to assess d/t baselin mental status, no grimacing with palpation) and No Guarding due to palpation present (GI) Other: ostomy functioning well with liquid stool in bag, stoma pink and viable Urinary Catheter: Urinary Catheter: patent and draining Extrem: Other: contracted Psych: Insight: Limited insight present (Psych) Judgement: Limited judgement present (Psych) Objective Data Vital Signs Vital Signs: Vital Signs - 24 hr 11/03/22 14:00 11/03/22 16:00 11/03/22 16:00 Temperature 97.4 F L Pulse Rate 88 97 97 Respiratory Rate 20 Blood Pressure 128/64 Pulse Oximetry 91 Oxygen Delivery Oxygen Flow Rate 11/03/22 16:00 11/03/22 18:00 11/03/22 20:00 Temperature 98.5 F Pulse Rate 101 H 99 Respiratory Rate 14 Blood Pressure 113/71 Pulse Oximetry 97 95 Oxygen Delivery Nasal Cannula Oxygen Flow Rate 2 11/03/22 20:00 11/03/22 20:00 11/03/22 22:00 Temperature Pulse Rate 93 103 H Respiratory Rate Blood Pressure Pulse Oximetry 95 Oxygen Delivery Nasal Cannula Oxygen Flow Rate 2 11/03/22 23:58 11/04/22 00:00 11/04/22 00:00 Temperature 98.1 F Pulse Rate 94 83 Respiratory Rate 18 Blood Pressure 148/72 H Pulse Oximetry 95 95 Oxygen Delivery Nasal Cannula Oxygen Flow Rate 2 11/04/22 02:00 11/04/22 04:00 11/04/22 04:00 Temperature Pulse Rate 93 101 H Respiratory Rate Blood Pressure Pulse Oximetry 97 Oxygen Delivery Nasal Cannula Oxygen Flow Rate 2 11/04/22 04:00 11/04/22 06:00 11/04/22 08:00 Temperature 98.4 F 97.8 F Pulse Rate 94
--- NOTE | 2022-11-04 13:25 | PCNFU ---
Nutrition Follow-Up Complete: Inadequate oral intake related to altered GI function as evidenced by recent colectomy with end colostomy. Goal: Meet estimated nutrition needs when medically able _ not meeting goal, NPO Pt current nutrition is NPO. day 4. Nutrition recommendation: Awaiting decision from family whether to proceed with TPN or PEG placement. Last recorded weight is 46.5 kg. Bowel Motility: Output per ostomy Labs Reviewed: Hgb 8.5, Hct 29.5, Alb 3.1, BUN 5, Cre 0.5 Meds Noted: cefepime, flagyl, protonix, zofran, vanco Skin: incision Additional Notes: To have a repeat swallow eval and decision from family regarding plan of care. TPN recommendations: Clinmix 04/07 E @ 50 ml/h, 1352 kcals, 60 g protein, 1450 ml total volume Monitoring plan of care, weights, labs, intakes, tolerance Follow up daily in ICU rounds
--- NOTE | 2022-11-04 15:30 | PC.NURSE ---
Family to bedside, Dr. Navarro notified. MD currently in ED, states I can get there in 3o minutes. Family updated on when MD will arrive.
[2022-11-04 18:33] LABS: Glucose Point of Care 153 mg/dl (65-105)
[2022-11-04 23:12] LABS: Glucose Point of Care 96 mg/dl (65-105)
[2022-11-05] VITALS (14 sets, daily range): BP systolic 102–123; BP diastolic 49–70; PULSE 68–95; RESP 12–20; TEMP 36.3–37.1; O2SAT 97–100
[2022-11-05] MEDS: KCL 20 MEQ/D5/0.9% SOD CHL 1,000 ML 100 ML IV CONT ×2 (03:07→13:00)
[2022-11-05] MEDS: metroNIDAZOLE 500 MG/ISO 100ML 500 MG/100 ML BAG 100 MG IVPB ×3 (05:23→21:10)
[2022-11-05] MEDS: CENTRAL LINE FLUSH 10 ML IV PUSH ×4 (05:23→21:10)
--- NOTE | 2022-11-05 07:04 | WPDGICN ---
Assessment and Plan Assessment and plan (1) Aspiration pneumonia: Code(s): J69.0 - Pneumonitis due to inhalation of food and vomit Status: Acute Assessment and Plan: he remains on antibiotics and NPO Due to the lack of nutrition he will have PEG tube placement today. (2) Stercoral colitis: Code(s): K52.89 - Other specified noninfective gastroenteritis and colitis Status: Acute Assessment and Plan: he underwent sigmoid colon resection and end colostomy. He subsequently developed a pelvic abscess which has been drained. (3) Septic shock: Code(s): A41.9 - Sepsis, unspecified organism; R65.21 - Severe sepsis with septic shock Status: Acute Assessment and Plan: This was due to the colonic ischemia, peritonitis. He remains on antibiotics. (4) Autism: Code(s): F84.0 - Autistic disorder Status: Acute Assessment and Plan: Is unable to communicate with me. GI Consult Note Consult date/time: 11/05/22 07:04 HPI: Ricky Swanson is a 42 year old Unfortunate male who is a alf resident. He was brought in with septic shock. He had been found have a massive impaction of stool causing ischemic colitis. He had surgical colectomy with end colostomy by Dr. Valverde. He had an abscess cavity that has been drained. He has been on antibiotics, cefepime and metronidazole. He is nonverbal. He has had apparently very poor nutrition and poor oral intake. Nutritional status has been an issue. He could not do a swallow evaluation . He has also developed pneumonia, probably due to aspiration TPN and or tube feedings have been considered in the family I understand his now grade to percutaneous endoscopic gastrostomy. This would then allow for placement in addition to providing nutrition and means of providing medication. Review of Systems Review of Systems: All systems reviewed & are unremarkable except as noted in HPI and below PMFSH Past Medical History Medical History Autism Social History Social History Smoking status: Never smoker Alcohol intake: never Substance use: never Spiritual care concerns: No Meds Home Medications and Allergies Home Medications Medication Instructions Recorded Confirmed Type bisacodyl 5 mg tablet,delayed 5 mg PO DAILY PRN Constipation 10/16/22 10/17/22 History release pantoprazole 40 mg tablet,delayed 40 mg PO DAILY 10/16/22 10/17/22 History release lactulose 10 gram/15 mL oral 20 g PO TID 10/17/22 10/17/22 History solution Allergies Allergy/AdvReac Type Severity Reaction Status Date / Time No Known Allergies Allergy Verified 10/16/22 19:27 Vital Signs Vital Signs - 24 hr 11/04/22 08:00 11/04/22 08:00 11/04/22 08:00 Temperature 36.6 C Pulse Rate 82 83 Respiratory Rate 14 Blood Pressure 117/71 Pulse Oximetry 97 97 Oxygen Delivery Nasal Cannula Oxygen Flow Rate 2 11/04/22 10:00 11/04/22 12:00 11/04/22 12:00 Temperature Pulse Rate 95 65 Respiratory Rate Blood Pressure Pulse Oximetry 97 Oxygen Delivery Nasal Cannula Oxygen Flow Rate 2 11/04/22 14:00 11/04/22 12:00 11/04/22 16:00 Temperature 36.6 C 37.2 C Pulse Rate 77 79 86 Respiratory Rate 14 14 Blood Pressure 113/62 118/70 Pulse Oximetry 100 96 Oxygen Delivery Oxygen Flow Rate 11/04/22 16:00 11/04/22 18:00 11/04/22 16:00 Temperature Pulse Rate 96 90 Respiratory Rate Blood Pressure Pulse Oximetry 97 Oxygen Delivery Nasal Cannula Oxygen Flow Rate 2 11/04/22 20:16 11/04/22 20:00 11/04/22 23:42 Temperature 37.1 C 37.1 C Pulse Rate 84 69 Respiratory Rate 20 20 Blood Pressure 120/60 118/60 Pulse Oximetry 98 97 94 Oxygen Delivery Nasal Cannula Oxygen Flow Rate 2 11/04/22 20:00 11/04/22 22:00 11/05/22 00:00 Temperat
--- NOTE | 2022-11-05 09:00 | PM.IMPN ---
Progress Note: A&P Assessment and Plan (1) Aspiration pneumonia: Code(s): J69.0 - Pneumonitis due to inhalation of food and vomit Status: Acute Assessment and Plan: Complete medical care needed would recommend initial start of TPN via his current PICC line. Keep and patient NPO, and then consider GI consultation possiblePEG tube for future nutrition when medically stable to proceed for endoscopic placement. patient is high risk of aspiration had extensive discussion family yesterday discussed all risks and benefits and he would like to try PEG tube. Spoke to GI patient is scheduled for procedure today (2) Intra-abdominal abscess: Code(s): K65.1 - Peritoneal abscess Status: Acute Assessment and Plan: peritoneal abscess being managed surgically patient has a drain in place (3) Acute respiratory failure: Code(s): J96.00 - Acute respiratory failure, unspecified whether with hypoxia or hypercapnia Status: Acute Assessment and Plan: patient appears very comfortable no signs of acute respiratory failure no jugular anemia lungs good air entry bilaterally (4) Influenza A: Code(s): J10.1 - Influenza due to other identified influenza virus with other respiratory manifestations Status: Acute Assessment and Plan: Patient tested positive for influenza A. Completed a five-day course of Tamiflu (5) Electrolyte abnormality: Code(s): E87.8 - Other disorders of electrolyte and fluid balance, not elsewhere classified Status: Acute Assessment and Plan: back to baseline (6) Anemia: Code(s): D64.9 - Anemia, unspecified Status: Acute Assessment and Plan: No obvious signs of bleeding Hemoglobin has been stable last hemoglobin and hematocrit 8.5/28.5 Transfuse if hemoglobin < 7.0 will recheck labs in the morning possible cause of anemia could be nutritional (7) Elevated LFTs: Code(s): R79.89 - Other specified abnormal findings of blood chemistry Status: Acute Assessment and Plan: liver ultrasound normal. Monitor liver functions (8) Stercoral colitis: Code(s): K52.89 - Other specified noninfective gastroenteritis and colitis Status: Acute Assessment and Plan: Ischemic stercoral colitis secondary to chronic constipation and dilation of sigmoid colon 10/17/2022 status post Exploratory laparotomy, sigmoid colectomy, creation of end colostomy 10/31 Failed BSS, reattempt tomorrow 11/01 Unable to assess swallowing, cannot cooperate with examiner patient not a candidate for a PEG tube placement as he is will likely pull the tube out patient continues to appear guarded GI consult is to do TPN via PICC line initially and possibly go to pact team placement. Patient not swallowing at all patient needs tag clerk air will call the family that the sister Samia and discussed further long-term care plans. 11/05 family decided not to go with hospice have decided to get a PEG tube placed for nutritional. Patient is at risk of pulling the PEG tube out will use strains, eventually being discharged to a long term facility for long-term care Plan DVT prophylaxis with Lovenox GI prophylaxis with PPI Code status full code patient has continued to worsen over time his nutritional status is poor also poor respiratory toilet, has severe risk of aspiration pneumonia, concerned about the G-tube, keeping all of the factors in play, I discussed with family about possible hospice care and comfort measures s. Time Spent With Patient Time with patient: 25 - 35 minutes Subjective Date/time seen: 11/05/22 09:00 Interval history: Patient appears comfortable in bed still nonverbal Review of Systems Review of Systems: ROS unobtainable: Yes unobtainable due to mental status Exam Const: General: underweight and other ( Does not respond verbally.) Orientation/consciousness: patient
[2022-11-05] MEDS: PANTOPRAZOLE SODIUM IV 40 MG VIAL IV PUSH (09:09)
[2022-11-05] MEDS: FAMOTIDINE 20 MG/2 ML VIAL IV PUSH ×2 (09:10→21:11)
--- NOTE | 2022-11-05 09:59 | PCSTNOTE ---
Per nurse patient's family has decided to agree to g-tube placement and bedside swallowing evaluation is cancelled.
[2022-11-05 12:12] LABS: Glucose Point of Care 117 mg/dl (65-105)
--- NOTE | 2022-11-05 13:15 | PCNFU ---
Nutrition Follow-Up Complete: Inadequate oral intake related to altered GI function as evidenced by recent colectomy with end colostomy. Goal:Meet estimated nutrition needs when medically able. Pt not meeting goal. Pt current nutrition is NPO. 5 days now. Nutrition recommendation: Initiate nutrition support Last recorded weight is 46.3 kg - stable Bowel Motility: +BM 11/02 Labs Reviewed: Hgb:8.5, HCT:29.5, BUN:5 Meds Noted: zofran, miralax Skin: no pressure areas Additional Notes: Pt remains NPO, Family has decided to proceed with PEG placement, awaiting GI. Recommend to initiate tube feedings once placed. Recommend Jevity 1.2 at a goal rate of 60ml/hr to provide 1584kcals, 73g protein, 1065ml. Flushes 150ml q 6hrs for a total of 1665ml. *Initiate tube feeding at 20ml/hr, advance by 10ml/hr q 4 hrs until goal. Monitoring plan of care, weights, labs, intakes, tolerance Follow up every /Friday
--- NOTE | 2022-11-05 13:40 | PM.PNGS ---
Progress Note: A&P Assessment and Plan (1) Stercoral colitis: Code(s): K52.89 - Other specified noninfective gastroenteritis and colitis Status: Acute Assessment and Plan: Over 2 weeks post-op from ex lap, sigmoid colectomy with creation end colostomy. Ostomy functioning well. Failed bedside swallow study with speech therapy. Family has decided to proceed with G-tube placement. GI evaluating patient for PEG tube placement. (2) Aspiration pneumonia: Code(s): J69.0 - Pneumonitis due to inhalation of food and vomit Status: Acute Assessment and Plan: Continue abx and management per primary service. (3) Intra-abdominal abscess: Code(s): K65.1 - Peritoneal abscess Status: Acute Assessment and Plan: CT 11/01/22 showed perc drain in place with no residual abscess, but mild colitis throughout the colon. Perc drain removed yesterday. Continue with medical management for colitis. Plan I have discussed the patient's case and plan of care with Dr. Perez. Subjective Subjective Date/Time Seen: 11/05/22 11:40 Interval history: Patient seen and examined, no family at the bedside. Chart reviewed. No acute changes overnight. Ostomy functioning well. Failed bedside swallow eval with speech therapy yesterday. Review of Systems Review of Systems: ROS unobtainable: Yes unobtainable due to mental status Exam Const: General: comfortable and no acute distress Other: baseline mental status GI: Inspection: non-distended and incision (dry and lencho intact, healing well) GI Palp: Yes Soft to palpation, No Tenderness to palpation present (GI) (no grimacing with palpation, limited exam d/t baseline mental status) and No Guarding due to palpation present (GI) Auscultation: normal bowel sounds Other: ostomy functioning well with liquid stool in bag, stoma pink and viable Urinary Catheter: Urinary Catheter: patent and draining Psych: Insight: Limited insight present (Psych) Judgement: Limited judgement present (Psych) Objective Data Vital Signs Vital Signs: Vital Signs - 24 hr 11/04/22 14:00 11/04/22 16:00 11/04/22 16:00 Temperature 99 F Pulse Rate 77 86 96 Respiratory Rate 14 Blood Pressure 118/70 Pulse Oximetry 96 Oxygen Delivery Oxygen Flow Rate 11/04/22 18:00 11/04/22 16:00 11/04/22 20:16 Temperature 98.7 F Pulse Rate 90 84 Respiratory Rate 20 Blood Pressure 120/60 Pulse Oximetry 97 98 Oxygen Delivery Nasal Cannula Oxygen Flow Rate 2 11/04/22 20:00 11/04/22 23:42 11/04/22 20:00 Temperature 98.7 F Pulse Rate 69 80 Respiratory Rate 20 Blood Pressure 118/60 Pulse Oximetry 97 94 Oxygen Delivery Nasal Cannula Oxygen Flow Rate 2 11/04/22 22:00 11/05/22 00:00 11/05/22 00:00 Temperature Pulse Rate 86 74 Respiratory Rate Blood Pressure Pulse Oximetry 97 Oxygen Delivery Nasal Cannula Oxygen Flow Rate 2 11/05/22 02:00 11/05/22 04:00 11/05/22 04:00 Temperature Pulse Rate 92 90 Respiratory Rate Blood Pressure Pulse Oximetry 97 Oxygen Delivery Nasal Cannula Oxygen Flow Rate 2 11/05/22 05:08 11/05/22 06:00 11/05/22 08:00 Temperature 98.6 F 98.4 F Pulse Rate 89 85 71 Respiratory Rate 20 14 Blood Pressure 122/63 123/49 L Pulse Oximetry 97 98 Oxygen Delivery Oxygen Flow Rate 11/05/22 08:00 11/05/22 10:00 11/05/22 08:00 Temperature Pulse Rate 71 69 Respiratory Rate Blood Pressure Pulse Oximetry 98 Oxygen Delivery Room Air Oxygen Flow Rate 11/05/22 12:00 Temperature 98.4 F Pulse Rate 90 Respiratory Rate 12 Blood Pressure 121/70 Pulse Oximetry 100 Oxygen Delivery Oxygen Flow Rate Intake/Output Intake/Output: Intake & Output 11/02/22 11/03/22 11/04/22 11/05/22 23:59 23:59 23:59 23:59 Intake Total 3800 3100 3550 2200 Output Total 3770 3350 3375 900 Balance 30 -049 451 3513 Meds/Results Medications: Active M
[2022-11-05 18:44] LABS: Glucose Point of Care 149 mg/dl (65-105)
[2022-11-06] VITALS (19 sets, daily range): BP systolic 100–134; BP diastolic 46–73; PULSE 16–105; RESP 14–98; TEMP 36.3–37.6; O2SAT 93–100
[2022-11-06 01:11] LABS: Glucose Point of Care 120 mg/dl (65-105)
[2022-11-06] MEDS: KCL 20 MEQ/D5/0.9% SOD CHL 1,000 ML 100 ML IV CONT ×2 (04:22→21:48)
[2022-11-06] MEDS: metroNIDAZOLE 500 MG/ISO 100ML 500 MG/100 ML BAG 100 MG IVPB ×2 (04:25→22:13)
[2022-11-06 04:53] LABS: Hematocrit 29.8 % (42.0-52.0); Hemoglobin 8.6 g/dL (14.0-18.0); Mean Corpuscular HGB Conc 28.9 g/dl (32-36); Mean Corpuscular Hemoglobin 24.1 pg (26-34); Mean Corpuscular Volume 83.5 fl (80-100); Mean Platelet Volume 9.6 fl (7.4-10.4); Platelet Count Result 456 k/mm3 (150-375); Red Blood Count 3.57 M/mm3 (4.6-6.20); Red Cell Distribution Width 19.5 % (11.5-14.5); White Blood Count 12.4 K/mm3 (4.5-10.0)
[2022-11-06 05:06] LABS: Alanine Aminotransferase 31 U/L (6-50); Albumin Level 3.2 g/dL (3.5-5.1); Alkaline Phosphatase 74 U/L (38-126); Anion Gap 4 mmol/L (8-16); Aspartate Amino Transferase 32 U/L (17-59); Bilirubin,Total 0.4 mg/dL (0.2-1.3); Blood Urea Nitrogen 3 mg/dL (9-20); Calcium 7.9 mg/dL (8.4-10.2); Carbon Dioxide 27 mmol/L (22-30); Chloride 104 mmol/L (98-107); Estimated CRCL calculation 104 ml/min; Estimated Glomerular Filt Rate > 60; Glucose 94 mg/dL (65-110); Potassium 3.7 mmol/L (3.4-5.0); Sodium 135 mmol/L (137-145)
[2022-11-06 06:02] LABS: Vancomycin Trough 18.4 ug/mL (10.0-20.0)
[2022-11-06] MEDS: CENTRAL LINE FLUSH 10 ML IV PUSH ×4 (06:05→21:51)
[2022-11-06] MEDS: FAMOTIDINE 20 MG/2 ML VIAL IV PUSH ×2 (08:27→21:50)
[2022-11-06] MEDS: PANTOPRAZOLE SODIUM IV 40 MG VIAL IV PUSH (08:27)
--- NOTE | 2022-11-06 11:09 | PM.IMPN ---
Progress Note: A&P Assessment and Plan (1) Aspiration pneumonia: Code(s): J69.0 - Pneumonitis due to inhalation of food and vomit Status: Acute Assessment and Plan: Complete medical care needed would recommend initial start of TPN via his current PICC line. Keep and patient NPO, and then consider GI consultation possiblePEG tube for future nutrition when medically stable to proceed for endoscopic placement. patient is high risk of aspiration had extensive discussion family yesterday discussed all risks and benefits and he would like to try PEG tube. Spoke to GI patient is scheduled for procedure today 11/06/22- planned for PEG today. Appreciate recommendations from GI. (2) Intra-abdominal abscess: Code(s): K65.1 - Peritoneal abscess Status: Acute Assessment and Plan: Drain removed. Stable. Patient still on cefepime, vancomycin and metronidazole. Will discuss about discontinuation. Appreciate recommendations from General Surgery. (3) Acute respiratory failure: Code(s): J96.00 - Acute respiratory failure, unspecified whether with hypoxia or hypercapnia Status: Acute Assessment and Plan: Adequate oxygen saturation on room air. Will monitor. (4) Influenza A: Code(s): J10.1 - Influenza due to other identified influenza virus with other respiratory manifestations Status: Acute Assessment and Plan: Patient tested positive for influenza A. Completed a five-day course of Tamiflu (5) Electrolyte abnormality: Code(s): E87.8 - Other disorders of electrolyte and fluid balance, not elsewhere classified Status: Acute Assessment and Plan: back to baseline (6) Anemia: Code(s): D64.9 - Anemia, unspecified Status: Acute Assessment and Plan: No obvious signs of bleeding Hemoglobin has been stable last hemoglobin and hematocrit 8.5/28.5 Transfuse if hemoglobin < 7.0 11/06/22 - Hemoglobin stable. (7) Elevated LFTs: Code(s): R79.89 - Other specified abnormal findings of blood chemistry Status: Acute Assessment and Plan: liver ultrasound normal. Monitor liver functions (8) Stercoral colitis: Code(s): K52.89 - Other specified noninfective gastroenteritis and colitis Status: Acute Assessment and Plan: Ischemic stercoral colitis secondary to chronic constipation and dilation of sigmoid colon 10/17/2022 status post Exploratory laparotomy, sigmoid colectomy, creation of end colostomy 10/31 Failed BSS, reattempt tomorrow 11/01 Unable to assess swallowing, cannot cooperate with examiner patient not a candidate for a PEG tube placement as he is will likely pull the tube out patient continues to appear guarded GI consult is to do TPN via PICC line initially and possibly go to pact team placement. Patient not swallowing at all patient needs compilation clerk air will call the family that the sister Crystal and discussed further long-term care plans. 11/05 family decided not to go with hospice have decided to get a PEG tube placed for nutritional. Patient is at risk of pulling the PEG tube out will use strains, eventually being discharged to a longterm facility for long-term care Subjective Date/time seen: 11/06/22 12:09 Patient is nonverbal. Review of Systems Review of Systems: ROS unobtainable: Yes other Constitutional: Comments: Patient nonverbal Exam Narrative: GENERAL: NAD, thin HEENT: Normocephalic, atraumatic, anicteric, nares clear, bitemporal wasting NECK:Supple CV: Normal S1, S2, RRR, No MRG RESP: CTAB, Normal work of breathing. Abdomen: midline incision c/d/i with stable. ostomy with dark liquid output. stoma pink. EXTREMITIES: Warm and well perfused, no clubbing, cyanosis, or edema. Bilateral upper extremities with wrist restraints. SKIN: warm, dry and intact. NEURO: Awake, alert. Objective Data Vital Signs Vital Si
[2022-11-06 12:22] LABS: Glucose Point of Care 99 mg/dl (65-105)
--- NOTE | 2022-11-06 12:29 | SUR.PREOP ---
No additional antibiotic orders for PEG tube placement per Dr Henning.
[2022-11-06] MEDS: LACTATED RINGERS 1,000 ML 150 ML IV CONT (13:27)
--- NOTE | 2022-11-06 13:50 | WPDANESEPPF ---
Anes - Initial Pre Proc Eval Procedure: Operation Date: 10/16/22 22:00 Proposed Procedures p Exploratory Laparotomy, Pos Bowel Resec - Minnie Perez MD Operation Date: 11/06/22 14:45 Proposed Procedures p Percutaneous Endoscopic Gastrostomy - Stone Henning MD Date/Time: 11/06/22 13:50 Surgeon: Minnie Perez MD Pre Op Diagnosis: Ischemic Stercoral Colitis Patient Data Age: 42 Gender: M Height: 1.78 m Weight: 43.8 kg Last Vital Signs Temp 99.6 F 11/06/22 13:24 Pulse 93 11/06/22 13:24 Resp 18 11/06/22 13:24 BP 115/60 11/06/22 13:24 Pulse Ox 94 11/06/22 13:24 O2 Del Method Room Air 11/06/22 13:24 O2 Flow Rate 2 11/06/22 08:00 FiO2 30 10/30/22 12:00 Allergies Allergy/AdvReac Type Severity Reaction Status Date / Time No Known Allergies Allergy Verified 11/06/22 13:21 Home Medications Medication Instructions Recorded Confirmed Type bisacodyl 5 mg tablet,delayed 5 mg PO DAILY PRN Constipation 10/16/22 10/17/22 History release pantoprazole 40 mg tablet,delayed 40 mg PO DAILY 10/16/22 10/17/22 History release lactulose 10 gram/15 mL oral 20 g PO TID 10/17/22 10/17/22 History solution Laboratory Tests 11/05/22 11/05/22 11/06/22 18:23 23:19 04:43 WBC 12.4 K/mm3 H K/mm3 (4.5-10.0) RBC 3.57 M/mm3 L M/mm3 (4.6-6.20) Hgb 8.6 g/dL L g/dL (14.0-18.0) Hct 29.8 % L % (42.0-52.0) MCV 83.5 fl fl (80-100) MCH 24.1 pg L pg (26-34) MCHC 28.9 g/dl L g/dl (32-36) RDW 19.5 % H % (11.5-14.5) Plt Count 456 k/mm3 H k/mm3 (150-375) MPV 9.6 fl fl (7.4-10.4) Sodium Potassium Chloride Carbon Dioxide Anion Gap BUN Creatinine Estim Creat Clear Calc Estimated GFR Glucose POC Capillary Glucose 149 mg/dl H mg/dl 120 mg/dl H mg/dl (65-105) (65-105) Calcium Total Bilirubin AST ALT Alkaline Phosphatase Total Protein Albumin Vancomycin Trough 11/06/22 11/06/22 11/06/22 04:43 04:44 12:07 WBC RBC Hgb Hct MCV MCH MCHC RDW Plt Count MPV Sodium 135 mmol/L L mmol/L (137-145) Potassium 3.7 mmol/L mmol/L (3.4-5.0) Chloride 104 mmol/L mmol/L (98-107) Carbon Dioxide 27 mmol/L mmol/L (22-30) Anion Gap 4 mmol/L L mmol/L (8-16) BUN 3 mg/dL L mg/dL (9-20) Creatinine 0.50 mg/dL L mg/dL (0.7-1.3) Estim Creat Clear Calc 104 ml/min ml/min Estimated GFR > 60 (59 - ) Glucose 94 mg/dL mg/dL (65-110) POC Capillary Glucose 99 mg/dl mg/dl (65-105) Calcium 7.9 mg/dL L mg/dL (8.4-10.2) Total Bilirubin 0.4 mg/dL mg/dL (0.2-1.3) AST 32 U/L U/L (17-59) ALT 31 U/L U/L (6-50) Alkaline Phosphatase 74 U/L U/L (38-126) Total Protein 7.0 g/dL g/dL (6.3-8.2) Albumin 3.2 g/dL L g/dL (3.5-5.1) Vancomycin Trough 18.4 ug/mL ug/mL (10.0-20.0) Patient hx anesthesia problems: none Family hx anesthesia problems: none Results Review: All pre-operative results and documents have been reviewed as part of the pre-operative evaluation. [facility] Past Medical History Medical History Autism Social History Social History Smoking status: Never smoker Alcohol intake: never Substance use: never Spiritual care concerns: No Anes - Eval Final PreProcedure Day of Procedure 11/06/22 13:50 Patient weight:
--- NOTE | 2022-11-06 14:32 | PM.PNGS ---
Progress Note: A&P Assessment and Plan (1) Stercoral colitis: Code(s): K52.89 - Other specified noninfective gastroenteritis and colitis Status: Acute Assessment and Plan: Almost 3 weeks post-op from ex lap, sigmoid colectomy with creation end colostomy. Ostomy functioning well. Will have nurse remove lencho. Failed bedside swallow study with speech therapy. GI proceeding with PEG tube placement today. (2) Aspiration pneumonia: Code(s): J69.0 - Pneumonitis due to inhalation of food and vomit Status: Acute Assessment and Plan: Continue abx and management per primary service. (3) Intra-abdominal abscess: Code(s): K65.1 - Peritoneal abscess Status: Acute Assessment and Plan: CT 11/01/22 showed perc drain in place with no residual abscess, but mild colitis throughout the colon. Perc drain removed yesterday. Continue with medical management for colitis. Plan I have discussed the patient's case and plan of care with Dr. Perez. Subjective Subjective Date/Time Seen: 11/06/22 10:22 Interval history: Patient seen and examined, no family at the bedside. Chart reviewed. No acute changes overnight. Ostomy functioning well. Review of Systems Review of Systems: ROS unobtainable: Yes unobtainable due to mental status Exam Const: General: no acute distress and awake Other: baseline mental status GI: Inspection: non-distended and incision (dry and lencho intact, healing well) GI Palp: Yes Soft to palpation, No Tenderness to palpation present (GI) and No Guarding due to palpation present (GI) Auscultation: normal bowel sounds Other: ostomy functioning well with liquid stool in bag, stoma pink and viable Psych: Insight: Limited insight present (Psych) Judgement: Limited judgement present (Psych) Objective Data Vital Signs Vital Signs: Vital Signs - 24 hr 11/05/22 16:00 11/05/22 16:00 11/05/22 16:00 Temperature 98.7 F Pulse Rate 73 95 Respiratory Rate 18 Blood Pressure 119/64 Pulse Oximetry 98 98 Oxygen Delivery Room Air Oxygen Flow Rate 11/05/22 18:00 11/05/22 20:00 11/05/22 20:00 Temperature 97.7 F Pulse Rate 75 68 73 Respiratory Rate 16 Blood Pressure 113/61 Pulse Oximetry 99 98 Oxygen Delivery Nasal Cannula Oxygen Flow Rate 2 11/05/22 20:00 11/05/22 22:00 11/05/22 23:36 Temperature 97.4 F L Pulse Rate 73 85 75 Respiratory Rate 16 Blood Pressure 102/53 L Pulse Oximetry 100 Oxygen Delivery Oxygen Flow Rate 11/06/22 00:00 11/06/22 00:00 11/06/22 04:00 Temperature 97.3 F L Pulse Rate 78 78 97 Respiratory Rate 15 Blood Pressure 106/66 Pulse Oximetry 99 100 Oxygen Delivery Nasal Cannula Oxygen Flow Rate 2 11/06/22 04:00 11/06/22 04:00 11/06/22 07:53 Temperature 97.9 F Pulse Rate 78 74 92 Respiratory Rate 14 Blood Pressure 118/60 Pulse Oximetry 99 100 Oxygen Delivery Nasal Cannula Oxygen Flow Rate 2 11/06/22 08:00 11/06/22 08:00 11/06/22 12:00 Temperature 97.9 F Pulse Rate 81 75 Respiratory Rate 14 Blood Pressure 109/66 Pulse Oximetry 100 96 Oxygen Delivery Nasal Cannula Oxygen Flow Rate 2 11/06/22 13:24 Temperature 99.6 F Pulse Rate 93 Respiratory Rate 18 Blood Pressure 115/60 Pulse Oximetry 94 Oxygen Delivery Room Air Oxygen Flow Rate Intake/Output Intake/Output: Intake & Output 11/03/22 11/04/22 11/05/22 11/06/22 23:59 23:59 23:59 23:59 Intake Total 3100 3550 3950 150 Output Total 3350 3375 2550 2125 Balance -500 114 9798 -1975 Meds/Results Medications: Active Medications Generic Name Dose Route Start Last Admin Trade Name Shaneq PRN Reason Stop Dose Admin Enoxaparin Sodium 40 mg 10/17/22 09:00 10/25/22 09:38 Enoxaparin 40 Mg/0.4 Ml Syringe SUB-Q 40 mg DAILY FARZAD Administration Famotidine 20 mg 10/17/22 09:00 11/06/22 08:27 Famotidine 20 Mg/2 Ml Vial IV PUSH 20 mg Q12HR FARZAD Administratio
[2022-11-06 18:54] LABS: Glucose Point of Care 172 mg/dl (65-105)
[2022-11-07] VITALS (13 sets, daily range): BP systolic 109–159; BP diastolic 60–71; PULSE 77–116; RESP 14–20; TEMP 36.3–36.9; O2SAT 93–97
[2022-11-07 00:10] LABS: Glucose Point of Care 135 mg/dl (65-105)
[2022-11-07 05:00] LABS: Basophils Absolute Auto 0.1 K/mm3 (0.0-0.1); Basophils Percent Auto 0.5 % (0.2-1.2); Eosinophils Absolute Auto 0.4 K/mm3 (0-0.3); Hematocrit 29.4 % (42.0-52.0); Hemoglobin 8.6 g/dL (14.0-18.0); Immature Granulocyte Absolute 0.24 K/mm3 (0.00-0.031); Lymphocytes Absolute Auto 1.86 K/mm3 (0.9-3.2); Lymphocytes Percent Auto 15.1 % (18.3-44.2); Mean Corpuscular HGB Conc 29.3 g/dl (32-36); Mean Corpuscular Volume 81.9 fl (80-100); Mean Platelet Volume 9.8 fl (7.4-10.4); Monocytes Absolute Auto 1.2 K/mm3 (0.1-0.6); Monocytes Percent Auto 10.1 % (2.6-8.5); Neutrophils Absolute Auto 8.5 K/mm3 (1.3-6.7); Neutrophils Percent Auto 69.3 % (45.5-73.1); Platelet Count Result 492 k/mm3 (150-375); Red Blood Count 3.59 M/mm3 (4.6-6.20); Red Cell Distribution Width 19.5 % (11.5-14.5); White Blood Count 12.3 K/mm3 (4.5-10.0)
[2022-11-07 05:22] LABS: Anisocytosis 1+ (NORMAL); Hypochromasia 1+ (NORMAL); Platelet Estimate Increased (Adequate)
[2022-11-07 05:23] LABS: Ovalocytes 1+ (NORMAL); Schistocytes 1+ (NORMAL)
[2022-11-07 05:27] LABS: Alanine Aminotransferase 27 U/L (6-50); Albumin Level 3.2 g/dL (3.5-5.1); Alkaline Phosphatase 80 U/L (38-126); Anion Gap 5 mmol/L (8-16); Aspartate Amino Transferase 22 U/L (17-59); Bilirubin,Total 0.4 mg/dL (0.2-1.3); Blood Urea Nitrogen 3 mg/dL (9-20); Carbon Dioxide 25 mmol/L (22-30); Chloride 108 mmol/L (98-107); Estimated CRCL calculation 98 ml/min; Estimated Glomerular Filt Rate > 60; Glucose 126 mg/dL (65-110); Potassium 3.3 mmol/L (3.4-5.0); Sodium 138 mmol/L (137-145)
[2022-11-07] MEDS: metroNIDAZOLE 500 MG/ISO 100ML 500 MG/100 ML BAG 100 MG IVPB ×2 (05:32→15:40)
[2022-11-07] MEDS: CENTRAL LINE FLUSH 10 ML IV PUSH ×3 (05:39→21:15)
[2022-11-07] MEDS: KCL 20 MEQ/D5/0.9% SOD CHL 1,000 ML 100 ML IV CONT (08:36)
[2022-11-07] MEDS: ENOXAPARIN 40 MG/0.4 ML SYRINGE SUB-Q (08:40)
[2022-11-07] MEDS: SCOPOLAMINE 1.5 MG PATCH TRANSDERM (08:41)
[2022-11-07] MEDS: PANTOPRAZOLE SODIUM IV 40 MG VIAL IV PUSH (08:41)
[2022-11-07] MEDS: FAMOTIDINE 20 MG/2 ML VIAL IV PUSH (10:00)
[2022-11-07] MEDS: POTASSIUM CHLORIDE INJ 40 MEQ in SODIUM CHLORIDE 0.9% IV 500 ML 130 MEQ IVPB (10:54)
[2022-11-07 11:47] LABS: Glucose Point of Care 117 mg/dl (65-105)
--- NOTE | 2022-11-07 12:06 | PM.IMPN ---
Progress Note: A&P Assessment and Plan (1) Aspiration pneumonia: Code(s): J69.0 - Pneumonitis due to inhalation of food and vomit Status: Acute Assessment and Plan: Complete medical care needed would recommend initial start of TPN via his current PICC line. Keep and patient NPO, and then consider GI consultation possiblePEG tube for future nutrition when medically stable to proceed for endoscopic placement. patient is high risk of aspiration had extensive discussion family yesterday discussed all risks and benefits and he would like to try PEG tube. Spoke to GI patient is scheduled for procedure today 11/06/22- planned for PEG today. Appreciate recommendations from GI. 11/07/22 PEG has tube feeds going at this time. Will need to coordinate with caustics loader what tube feeds are appropriate for discharge. (2) Intra-abdominal abscess: Code(s): K65.1 - Peritoneal abscess Status: Acute Assessment and Plan: Drain removed. Stable. Patient still on cefepime, vancomycin and metronidazole. Discussed antibiotic de-escalation with Surgery, who would like consult with ID pharmacist. Spoke with ID pharmacist, who recommended cefdinir and metronidazole for 7 days starting from the day the drain was removed (11/06). -Cefdinir 300 mg BID per PEG ordered -Metronidazole 500 q8h per PEG ordered -Vancomycin, cefepime and IV metronidazole discontinued (3) Acute respiratory failure: Code(s): J96.00 - Acute respiratory failure, unspecified whether with hypoxia or hypercapnia Status: Acute Assessment and Plan: Adequate oxygen saturation on room air. Will monitor. (4) Influenza A: Code(s): J10.1 - Influenza due to other identified influenza virus with other respiratory manifestations Status: Acute Assessment and Plan: Patient tested positive for influenza A. Completed a five-day course of Tamiflu (5) Electrolyte abnormality: Code(s): E87.8 - Other disorders of electrolyte and fluid balance, not elsewhere classified Status: Acute Assessment and Plan: back to baseline (6) Anemia: Code(s): D64.9 - Anemia, unspecified Status: Acute Assessment and Plan: No obvious signs of bleeding Hemoglobin has been stable. (7) Elevated LFTs: Code(s): R79.89 - Other specified abnormal findings of blood chemistry Status: Acute Assessment and Plan: liver ultrasound normal. Monitor liver functions (8) Stercoral colitis: Code(s): K52.89 - Other specified noninfective gastroenteritis and colitis Status: Acute Assessment and Plan: Ischemic stercoral colitis secondary to chronic constipation and dilation of sigmoid colon 10/17/2022 status post Exploratory laparotomy, sigmoid colectomy, creation of end colostomy 10/31 Failed BSS, reattempt tomorrow 11/01 Unable to assess swallowing, cannot cooperate with examiner patient not a candidate for a PEG tube placement as he is will likely pull the tube out patient continues to appear guarded GI consult is to do TPN via PICC line initially and possibly go to pact team placement. Patient not swallowing at all patient needs insurance clerk air will call the family that the sister Crystal and discussed further long-term care plans. 11/05 family decided not to go with hospice have decided to get a PEG tube placed for nutritional. Patient is at risk of pulling the PEG tube out will use strains, eventually being discharged to a long term facility for long-term care Subjective Date/time seen: 11/07/22 21:06 Patient is nonverbal and again in restraints. Discussed restrains with nursing. Advised that patient restraints need to be removed and should not be renewed under my name. Review of Systems Review of Systems: ROS unobtainable: Yes other Constitutional: Comments: Patient is nonverbal. Exam Narrative: GENERAL: NAD, t
--- NOTE | 2022-11-07 13:49 | PM.PNGS ---
Progress Note: A&P Assessment and Plan (1) Stercoral colitis: Code(s): K52.89 - Other specified noninfective gastroenteritis and colitis Status: Acute Assessment and Plan: Patient is 3 weeks post-op from ex lap, sigmoid colectomy with creation end colostomy. Ostomy functioning well. Incision healing well. S/p PEG tube placement, tolerating tube feeding at current rate, continue advancing per dietitian's recommendations (2) Intra-abdominal abscess: Code(s): K65.1 - Peritoneal abscess Status: Acute Assessment and Plan: Discussed antibiotics with Hospitalist today regarding narrowing treatment. He was on Primaxin/Vancomycin starting 10/25 until 11/01 when he was switched to Cefepime, metronidazole with vancomycin. Recommend ID pharmacist consult. (3) Aspiration pneumonia: Code(s): J69.0 - Pneumonitis due to inhalation of food and vomit Status: Acute Assessment and Plan: Continue abx and management per primary service. Plan I have discussed the patient's case and plan of care with Dr. Perez. Subjective Subjective Date/Time Seen: 11/07/22 13:49 Interval history: Patient seen and examined, no family at the bedside. Chart reviewed. No acute changes overnight. Ostomy functioning well. Plan to take soft wrist restraints off today. Review of Systems Review of Systems: ROS unobtainable: Yes unobtainable due to mental status Exam Const: General: comfortable, no acute distress and awake Other: baseline mental status GI: Inspection: non-distended and incision (dry and healing well, lencho were removed yesterday) GI Palp: Yes Soft to palpation and No Guarding due to palpation present (GI) Auscultation: normal bowel sounds Other: ostomy functioning well with liquid stool in bag Neuro: General: moves all extremities Psych: Insight: Limited insight present (Psych) Judgement: Limited judgement present (Psych) Objective Data Vital Signs Vital Signs: Vital Signs - 24 hr 11/06/22 14:30 11/06/22 14:40 11/06/22 14:50 Temperature Pulse Rate 100 105 H 84 Respiratory Rate 17 23 H 27 H Blood Pressure 105/69 134/46 L 104/61 Pulse Oximetry 98 95 93 Oxygen Delivery Room Air Room Air Room Air Fraction of Inspired Oxygen 11/06/22 16:00 11/06/22 16:00 11/06/22 15:15 Temperature 97.7 F 97.8 F Pulse Rate 92 104 H Respiratory Rate 16 16 Blood Pressure 100/61 111/73 Pulse Oximetry 96 96 100 Oxygen Delivery Room Air Fraction of Inspired Oxygen 30 11/06/22 15:30 11/06/22 16:00 11/06/22 18:00 Temperature 97.7 F Pulse Rate 92 100 102 H Respiratory Rate 16 Blood Pressure 100/61 Pulse Oximetry 96 Oxygen Delivery Fraction of Inspired Oxygen 11/06/22 16:00 11/06/22 16:30 11/06/22 17:30 Temperature 99 F 98.8 F 98.6 F Pulse Rate 16 L 98 95 Respiratory Rate 98 H 16 16 Blood Pressure 104/61 104/60 101/62 Pulse Oximetry 98 96 99 Oxygen Delivery Fraction of Inspired Oxygen 11/06/22 18:30 11/06/22 20:00 11/07/22 00:00 Temperature 98.8 F 97.3 F L 98.4 F Pulse Rate 101 H 94 105 H Respiratory Rate 16 16 16 Blood Pressure 107/62 114/60 124/63 Pulse Oximetry 96 93 93 Oxygen Delivery Fraction of Inspired Oxygen 11/06/22 20:00 11/07/22 00:00 11/06/22 20:00 Temperature Pulse Rate 90 Respiratory Rate Blood Pressure Pulse Oximetry Oxygen Delivery Room Air Room Air Fraction of Inspired Oxygen 11/06/22 22:00 11/07/22 00:00 11/07/22 02:00 Temperature Pulse Rate 95 108 H 82 Respiratory Rate Blood Pressure Pulse Oximetry Oxygen Delivery Fraction of Inspired Oxygen 11/07/22 04:00 11/07/22 04:00 11/07/22 04:00 Temperature 97.9 F Pulse Rate 102 H 77 Respiratory Rate 16 Blood Pressure 135/71 Pulse Oximetry 95 Oxygen Delivery Room Air Fraction of Inspired Oxygen 11/07/22 06:00 11/07/22 08:00 11/07/22 11:45 Temperature 97.4 F L 98.3 F Pulse Rate 93 1
[2022-11-07 14:00] LABS: Glucose Point of Care 108 mg/dl (65-105)
--- NOTE | 2022-11-07 14:51 | IDPHARM ---
Addendum entered by Salazar Diallo PharmD 11/07/22 15:06: Addend the A/R/D section. Potential oral options include cefdinir and metronidazole to continue to cover common GI pathogens like E. coli, Klebsiella spp. and B. fragilis. Original Note: Subjective Pharmacy was consulted by Alcira Miller regarding infectious diseases for Ricky Swanson. Ricky Swanson is a 42 year old M with concerns regarding intra-abdominal infection. Background The patient is currently receiving Cefepime/Metronidazole/Vancomycin. This patient has had a long stay at the hospital with, notably, a percutaneous drain placed for an abscess. This drain was pulled on 11/06 and no culture was obtained. Per the provider, the abscess is seen to be resolved. Additionally, the patient's WBC has come down significantly, but has been stable around 12-13 in the last 4-5 days. Assessment/Recommendation/Discussion Discussed with consulting provider regarding this case. 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 IDSA guidance and STOP-IT trial guidance were reviewed, however it appears that the STOP-IT trial primarily focused on community-based intra-abdominal infections. Thank you for the interesting consult. Salazar Diallo, Katie Infectious Disease/Antimicrobial Stewardship Pharmacist 11/07/22; [id number]
[2022-11-07 18:09] LABS: Glucose Point of Care 138 mg/dl (65-105)
[2022-11-07] MEDS: metroNIDAZOLE 250 MG TABLET 500 MG FEED TUBE (22:09)
[2022-11-08] VITALS (9 sets, daily range): BP systolic 110–121; BP diastolic 55–62; PULSE 57–114; RESP 18–20; TEMP 36.6–37.2; O2SAT 96–100
[2022-11-08 00:59] LABS: Glucose Point of Care 109 mg/dl (65-105)
[2022-11-08 04:58] LABS: Basophils Absolute Auto 0.1 K/mm3 (0.0-0.1); Basophils Percent Auto 0.7 % (0.2-1.2); Eosinophils Absolute Auto 0.4 K/mm3 (0-0.3); Eosinophils Percent Auto 3.8 % (0-4.4); Hematocrit 30.1 % (42.0-52.0); Hemoglobin 8.9 g/dL (14.0-18.0); Immature Granulocyte Absolute 0.29 K/mm3 (0.00-0.031); Immature Granulocyte Percent A 2.8 % (0-0.5); Lymphocytes Absolute Auto 1.87 K/mm3 (0.9-3.2); Lymphocytes Percent Auto 17.8 % (18.3-44.2); Mean Corpuscular HGB Conc 29.6 g/dl (32-36); Mean Corpuscular Hemoglobin 24.2 pg (26-34); Mean Corpuscular Volume 81.8 fl (80-100); Mean Platelet Volume 9.3 fl (7.4-10.4); Monocytes Absolute Auto 1.5 K/mm3 (0.1-0.6); Neutrophils Absolute Auto 6.4 K/mm3 (1.3-6.7); Neutrophils Percent Auto 60.9 % (45.5-73.1); Platelet Count Result 452 k/mm3 (150-375); Red Blood Count 3.68 M/mm3 (4.6-6.20); Red Cell Distribution Width 20.5 % (11.5-14.5); White Blood Count 10.5 K/mm3 (4.5-10.0)
[2022-11-08 05:08] LABS: Alanine Aminotransferase 24 U/L (6-50); Albumin Level 3.3 g/dL (3.5-5.1); Alkaline Phosphatase 85 U/L (38-126); Anion Gap 5 mmol/L (8-16); Aspartate Amino Transferase 32 U/L (17-59); Bilirubin,Total 0.3 mg/dL (0.2-1.3); Blood Urea Nitrogen 4 mg/dL (9-20); Carbon Dioxide 25 mmol/L (22-30); Chloride 103 mmol/L (98-107); Estimated CRCL calculation 106 ml/min; Estimated Glomerular Filt Rate > 60; Glucose 126 mg/dL (65-110); Potassium 3.7 mmol/L (3.4-5.0); Sodium 133 mmol/L (137-145)
[2022-11-08] MEDS: CENTRAL LINE FLUSH 10 ML IV PUSH (05:12)
[2022-11-08] MEDS: metroNIDAZOLE 250 MG TABLET 500 MG FEED TUBE (05:12)
--- NOTE | 2022-11-08 09:11 | PCNFU ---
Nutrition Follow-Up Complete: Inadequate oral intake related to altered GI function as evidenced by recent colectomy with end colostomy. Goal:Meet estimated nutrition needs when medically able. Pt is meeting goal, continue with current goal. Pt current nutrition is Jevity 1.2 @ 60ml/hr. Nutrition recommendation: Continue with current plan of care. Last recorded weight is 46.1 kg - stable at this time. Bowel Motility: No BM recorded at this time Labs Reviewed: NA:133, BUN:4, Cr:0.5, Glu:126, Alb:3.3 Meds Noted: miralax, zofran, reglan Skin: incision Additional Notes: Pt has PEG placed, started on tube feedings, currently running Jevity 1.2 at a goal rate of 60ml/hr to provide 1584kcals, 73g protein, 1065ml per previous RD recommendation. Pt is tolerating. Agree with orders. Monitoring plan of care, weights, labs, intakes, tolerance Follow up every Friday/Friday.
--- NOTE | 2022-11-08 09:19 | PM.IMPN ---
Progress Note: A&P Assessment and Plan (1) Aspiration pneumonia: Code(s): J69.0 - Pneumonitis due to inhalation of food and vomit Status: Acute Assessment and Plan: Complete medical care needed would recommend initial start of TPN via his current PICC line. Keep and patient NPO, and then consider GI consultation possiblePEG tube for future nutrition when medically stable to proceed for endoscopic placement. patient is high risk of aspiration had extensive discussion family yesterday discussed all risks and benefits and he would like to try PEG tube. Spoke to GI patient is scheduled for procedure today 11/06/22- planned for PEG today. Appreciate recommendations from GI. 11/07/22 PEG has tube feeds going at this time. Will need to coordinate with photo finish photographer what tube feeds are appropriate for discharge. (2) Intra-abdominal abscess: Code(s): K65.1 - Peritoneal abscess Status: Acute Assessment and Plan: Drain removed. Stable. Patient still on cefepime, vancomycin and metronidazole. Discussed antibiotic de-escalation with Surgery, who would like consult with ID pharmacist. Spoke with ID pharmacist, who recommended cefdinir and metronidazole for 7 days starting from the day the drain was removed (11/06). -Cefdinir 300 mg BID per PEG ordered -Metronidazole 500 q8h per PEG ordered -Vancomycin, cefepime and IV metronidazole discontinued (3) Acute respiratory failure: Code(s): J96.00 - Acute respiratory failure, unspecified whether with hypoxia or hypercapnia Status: Acute Assessment and Plan: Adequate oxygen saturation on room air. Will monitor. (4) Influenza A: Code(s): J10.1 - Influenza due to other identified influenza virus with other respiratory manifestations Status: Acute Assessment and Plan: Patient tested positive for influenza A. Completed a five-day course of Tamiflu (5) Electrolyte abnormality: Code(s): E87.8 - Other disorders of electrolyte and fluid balance, not elsewhere classified Status: Acute Assessment and Plan: back to baseline (6) Anemia: Code(s): D64.9 - Anemia, unspecified Status: Acute Assessment and Plan: No obvious signs of bleeding Hemoglobin has been stable. (7) Elevated LFTs: Code(s): R79.89 - Other specified abnormal findings of blood chemistry Status: Acute Assessment and Plan: liver ultrasound normal. Monitor liver functions (8) Stercoral colitis: Code(s): K52.89 - Other specified noninfective gastroenteritis and colitis Status: Acute Assessment and Plan: Ischemic stercoral colitis secondary to chronic constipation and dilation of sigmoid colon 10/17/2022 status post Exploratory laparotomy, sigmoid colectomy, creation of end colostomy 10/31 Failed BSS, reattempt tomorrow 11/01 Unable to assess swallowing, cannot cooperate with examiner patient not a candidate for a PEG tube placement as he is will likely pull the tube out patient continues to appear guarded GI consult is to do TPN via PICC line initially and possibly go to pact team placement. Patient not swallowing at all patient needs cash accounting clerk air will call the family that the sister Crystal and discussed further long-term care plans. 11/05 family decided not to go with hospice have decided to get a PEG tube placed for nutritional. Patient is at risk of pulling the PEG tube out will use strains, eventually being discharged to a long-term facility for long-term care Subjective Date/time seen: 11/08/22 09:19 Interval history: Patient is nonverbal lying in bed. Review of Systems Review of Systems: ROS unobtainable: Yes unobtainable due to mental status and other Exam Narrative: GENERAL: NAD, thin HEENT: Normocephalic, atraumatic, anicteric, nares clear, bitemporal wasting NECK:Supple CV: Normal S1, S2, RRR, No MRG RESP: CTAB,
[2022-11-08] MEDS: CEFDINIR 300 MG CAPSULE FEED TUBE (09:55)
[2022-11-08] MEDS: ENOXAPARIN 40 MG/0.4 ML SYRINGE SUB-Q (09:55)
[2022-11-08] MEDS: FAMOTIDINE 20 MG TABLET FEED TUBE (09:55)
--- NOTE | 2022-11-08 11:08 | PM.PNGS ---
Progress Note: A&P Assessment and Plan (1) Stercoral colitis: Code(s): K52.89 - Other specified noninfective gastroenteritis and colitis Status: Acute Assessment and Plan: doing well, yin TFs at goal, exam benign, +ostomy fxn, no further acute surgical issues, ok to dc to ECF from surgical standpoint Subjective Subjective Date/Time Seen: 11/08/22 11:08 no acute issues Review of Systems Review of Systems: ROS unobtainable: Yes unobtainable due to mental status Exam Const: General: comfortable and no acute distress Resp: Auscultation: diminished lung sounds Cardio: Rate: regular rate Rhythm: regular rhythm GI: Inspection: normal to inspection and incision GI Palp: No abdominal tenderness, Yes Soft to palpation, No Tenderness to palpation present (GI), No Guarding due to palpation present (GI) and No Rigid due to palpation Other: ostomy - +fxn PEG - C/D/I Objective Data Vital Signs Vital Signs: Vital Signs - 24 hr 11/07/22 11:45 11/07/22 12:00 11/07/22 12:00 Temperature 36.8 C 36.8 C Pulse Rate 94 81 94 Respiratory Rate 14 14 Blood Pressure 114/63 114/63 Pulse Oximetry 93 93 Oxygen Delivery 11/07/22 14:00 11/07/22 16:00 11/07/22 12:00 Temperature 36.9 C Pulse Rate 97 113 H Respiratory Rate 16 Blood Pressure 109/60 Pulse Oximetry 97 Oxygen Delivery Room Air 11/07/22 16:00 11/07/22 16:00 11/07/22 18:00 Temperature Pulse Rate 116 H 101 H Respiratory Rate Blood Pressure Pulse Oximetry Oxygen Delivery Room Air 11/07/22 20:00 11/07/22 20:00 11/07/22 20:00 Temperature 36.8 C Pulse Rate 88 102 H Respiratory Rate 18 Blood Pressure 159/61 H Pulse Oximetry 95 Oxygen Delivery Room Air 11/07/22 22:00 11/08/22 00:35 11/08/22 00:45 Temperature 36.9 C Pulse Rate 106 H 107 H Respiratory Rate 18 Blood Pressure 121/62 Pulse Oximetry 97 Oxygen Delivery Room Air 11/08/22 00:00 11/08/22 02:00 11/08/22 04:00 Temperature Pulse Rate 108 H 78 Respiratory Rate Blood Pressure Pulse Oximetry Oxygen Delivery Room Air 11/08/22 04:00 11/08/22 04:00 11/08/22 06:00 Temperature 36.6 C Pulse Rate 114 H 103 H 102 H Respiratory Rate 18 Blood Pressure 110/55 L Pulse Oximetry 100 Oxygen Delivery 11/08/22 08:00 11/08/22 08:00 11/08/22 10:00 Temperature 37.2 C Pulse Rate 57 L 114 H 97 Respiratory Rate 20 Blood Pressure 111/61 Pulse Oximetry 96 Oxygen Delivery 11/08/22 08:00 Temperature Pulse Rate Respiratory Rate Blood Pressure Pulse Oximetry Oxygen Delivery Room Air Intake/Output Intake/Output: Intake & Output 11/05/22 11/06/22 11/07/22 11/08/22 23:59 23:59 23:59 23:59 Intake Total 3950 2550 2963 Output Total 2550 3125 2400 1800 Balance 1400 -575 563 -1800 Meds/Results Medications: Active Medications Generic Name Dose Route Start Last Admin Trade Name Freq PRN Reason Stop Dose Admin Cefdinir 300 mg 11/08/22 09:00 11/08/22 09:55 Cefdinir 300 Mg Capsule FEED TUBE 300 mg Q12HR FARZAD Administration Enoxaparin Sodium 40 mg 10/17/22 09:00 11/08/22 09:55 Enoxaparin 40 Mg/0.4 Ml Syringe SUB-Q 40 mg DAILY FARZAD Administration Famotidine 20 mg 11/08/22 09:00 11/08/22 09:55 Famotidine 20 Mg Tablet FEED TUBE 20 mg Q12HR FARZAD Administration Metronidazole 500 mg 11/07/22 22:00 11/08/22 05:12 Metronidazole 250 Mg Tablet FEED TUBE 500 mg Q8HR FARZAD Administration Naloxone HCl 0.1 mg 10/17/22 00:53 Naloxone Hcl 0.4 Mg/Ml Vial IV PUSH Q2M PRN Opiate Reversal Ondansetron HCl 4 mg 10/17/22 00:53 10/30/22 22:27 Ondansetron Inj 4 Mg/2 Ml Vial IV PUSH 4 mg Q4H PRN Administration Nausea And Vomiting Scopolamine 1.5 mg 10/26/22 09:00 11/07/22 08:41 Scopolamine 1.5 Mg Patch TRANSDERM 1.5 mg Q72HR FARZAD Administration Sodium Chloride 10 ml 10/21/22 14:00 11/08/22 05:12 Usman
[2022-11-08 12:46] LABS: Glucose Point of Care 114 mg/dl (65-105)
[2022-11-08 14:05] LABS: EDCOVIDSCREEN Negative (Negative)
--- NOTE | 2022-11-08 15:40 | PC.NURSE ---
Report called to Tess Doe LPN at [facility].
--- NOTE | 2022-12-05 10:24 | PM.DS ---
DS: Admitting Diagnosis Discharge Date 11/08/22 Admitting Diagnosis stercoral/ischemic colitis DS: Discharge Diagnosis Discharge Diagnosis (1) Stercoral colitis: Code(s): K52.89 - Other specified noninfective gastroenteritis and colitis Status: Acute Assessment and Plan: s/p resection and end colostomy, ostomy working well, yin TF (2) Septic shock: Code(s): A41.9 - Sepsis, unspecified organism; R65.21 - Severe sepsis with septic shock Status: Acute Assessment and Plan: resolved at time of discharge (3) Aspiration pneumonia: Code(s): J69.0 - Pneumonitis due to inhalation of food and vomit Status: Acute Assessment and Plan: resolved, had PEG placed, yin TF at goal (4) Autism: Code(s): F84.0 - Autistic disorder Status: Acute Assessment and Plan: poor function overall, non verbal, baseline DS: Summary Hospital Course Reason for hospitalization: sepsis, stercoral colitis Hospital Course: Pt is a 42 y/o M c severe mental delay presenting from [facility] c sepsis, colitis. Given shock, pt taken emergently to OR and sigmoid colectomy and end colostomy done. Please see full operative report for details. Pt transferred to ICU postop c treatment for cont sepsis. Pt did self extubate POD 1, but had aspiration event requiring reintubation. Pt also noted to have intraabdominal abscess requiring perc drain by IR. Pt was eventually able to be extubated and subsequent swallow studies showed cont aspiration. Given this, GI was consulted and PEG was placed. Pt was able to be transferred to floor. Pt was able to yin TF at goal and ostomy was working s issue. Pt will now be transferred to [facility]. Status at Discharge Functional status at discharge: bed bound Overall status at discharge: patient is progressing back to baseline Time Spent with Patient Time attestation: Total time spent providing and/or coordinating discharge services: Exam Const: General: comfortable, no acute distress and ill appearing Resp: Auscultation: clear to auscultation bilaterally Cardio: Rate: regular rate Rhythm: regular rhythm GI: Inspection: normal to inspection, non-distended and incision GI Palp: No abdominal tenderness, Yes Soft to palpation, No Tenderness to palpation present (GI), No Guarding due to palpation present (GI) and No Rigid due to palpation Other: ostomy - working well DS: Data Data Completed and Pending Completed studies during hospitalization: Pending at discharge 10/17/22 00:07 Surgical [PTH] Routine Discharge Plan Discharge Consulting providers: Romain Garcia ; Navjot Esteban ; Stone Henning ; Trenton Silver ; Vivek Navarro ; Miranda Miller ; Juan Pablo Henderson ; Luciano Pantoja ; Shahzad Ramos ; Donald Moseley ; Jose Cruz Nunez ; Rick Renee ; Ilya*,Earle Mcdowell ; Carmen Mcneil ; Thomas Montenegro ; Rosanna Bloom ; Collin Zavala V. ; Karen Cohen Discharging Clinician: Minnie Perez Patient Disposition: OR Fpc/Asst Living Activity: as tolerated Diet: NPO Discharge Instructions: Antibiotics are to be taken until completed. The PEG tube will need to be kept clean and dry. The correction will have to keep the supplies to keep the PEG clean and dry. Patient Instructions: Antibiotic Form, Colostomy Care (GEN) Patient Language: Arabic Stand Alone Forms: General Discharge Information Follow-up/Referrals: Minerva,Harmony Munguia MD [Primary Care Provider] - 1 Week Discharge Medications: New cefdinir 300 mg Capsule 300 mg feeding tube Q12HR 5 Days Qty: 10 0RF metronidazole 250 mg Tablet 500 mg feeding tube Q8HR 5 Days Qty: 30 0RF famotidine 20 mg Tablet 20 mg feeding tube Q12HR 30 Days Qty: 60 0RF Discontinued pantoprazole 40 mg tablet,delayed release (DR/EC) 40 mg PO DAILY bisacodyl 5 mg tablet,delayed release (DR/EC) 5 mg PO DAILY PRN (Reason: Constipation) lactulose 10 gr
== END 2022-11-08 15:06 | DRG 710 ==
LOC: ANHED 20:49 → ANHSURGERY 21:30 → ANHICU 10-17 00:56 → ANHIMU 10-31 01:48
PROVIDERS: Emergency Medicine; Family Medicine; Internal Medicine; Internal Medicine Gastroenterology; Nurse Practitioner Family; Admitting Provider Surgery; Emergency Provider Emergency Medicine; PCP Internal Medicine; Visit Provider Surgery
PROC: (CPT 49000; principal; 2022-10-16 22:00)
PROC: 0DH63UZ Insertion of Feeding Device into Stomach, Percutaneous Approach (ICD-10-PCS; CPT 43246; principal; 2022-11-06 14:45)
DX: A41.9 Sepsis, unspecified organism (principal); J96.01 Acute respiratory failure with hypoxia; J69.0 Pneumonitis due to inhalation of food and vomit; R65.21 Severe sepsis with septic shock; K65.1 Peritoneal abscess; J43.9 Emphysema, unspecified; K55.9 Vascular disorder of intestine, unspecified; F84.0 Autistic disorder; F41.9 Anxiety disorder, unspecified; K59.09 Other constipation; D64.9 Anemia, unspecified; J10.1 Influenza due to other identified influenza virus with other respiratory manifestations; Z20.822 Contact with and (suspected) exposure to COVID-19; R79.89 Other specified abnormal findings of blood chemistry
CPT/HCPCS: 31500; 36415; 36430; 36569; 36600; 43246; 71045; 71260; 74019; 74176; 74177; 75989; 76705; 80048; 80053; 80074; 80202; 81001; 82375; 82565; 82805; 82948; 83050; 83605; 83690; 83735; 84100; 84443; 85014; 85018; 85025; 85027; 85610; 85730; 86850; 86900; 86901; 86923; 87040; 87070; 87077; 87086; 87205; 87426; 87636; 88307; 92610; 93005; 93970; 94002; 94003; 94667; 94669; 96361; 96365; 96372; 96375; 99291; A9270; C1729; C1751; C9113; C9803; J0131; J0330; J0610; J0692; J0743; J1100; J1650; J1940; J2060; J2250; J2270; J2405; J2543; J2704; J2765; J2997; J3010; J3370; J3475; J3480; J7030; J7040; J7050; J7120; P9016; Q9967

== ENCOUNTER 2022-12-13 21:58 | Emergency (ER) | payer OTHER, SELFPAY ==
[2022-12-13] VITALS (8 sets, daily range): BP systolic 99–120; BP diastolic 73–79; PULSE 75–92; RESP 19; TEMP 36.8; O2SAT 92–96
--- NOTE | ~2022-12-13 | XR_ITS ---
EXAMINATION: XR G tube replacement w image DATE: 12/13/2022 23:34 INDICATION: Gastrostomy tube replacement. TECHNIQUE: A supine view of the abdomen was obtained. COMPARISON: Abdomen radiographs 10/30/2022 FINDINGS: The lower abdomen is a slight. There are no dilated loops of bowel. The gastrostomy tube is in the body of the stomach. There is contrast within the stomach and proximal small bowel. No extral uminal contrast. IMPRESSION: 1. Gastrostomy tube in the body of the stomach. Reviewed, dictated and finalized at location A. [facility] FIT[facility]
[2022-12-14] VITALS (10 sets, daily range): BP systolic 95–119; BP diastolic 63–86; PULSE 72; O2SAT 99
--- NOTE | 2022-12-14 00:28 | ED.GENADULT ---
HPI - General Adult General Chief complaint: Unspecified Stated complaint: CLOGGED, BROKEN G-TUBE Time Seen by Provider: 12/13/22 22:51 History of Present Illness HPI narrative: Patient 42-year-old gentleman who presents the emergency department with chief complaint of PEG tube malfunction. The patient has a PEG tube that was placed over a month ago and the tubing had a crack that developed in it. Patient was sent to the emergency department for replacement of the PEG tube. Related Data Allergies Allergy/AdvReac Type Severity Reaction Status Date / Time No Known Allergies Allergy Verified 11/06/22 13:21 Review of Systems Review of Systems: A 10 system review of systems was completed on the patient and is negative except for what is stated in the HPI. Nursing and ancillary documentation was reviewed. PMFSH Past Medical History Medical History Autism Social History Social History Smoking status: Never smoker Alcohol intake: never Substance use: never Spiritual care concerns: No Exam Narrative: GENERAL: Well-appearing, well-nourished, and in no acute distress. HEAD: Normocephalic, atraumatic. EYES: PERRLA and EOMI. ENT: Nares clear, no rhinorrhea or epistaxis. Mucous membranes moist. NECK: Supple. CHEST: Clear to auscultation. No respiratory distress. HEART: Regular rate and rhythm. No murmur heard. Normal peripheral pulses. ABDOMEN: Soft, nontender, nondistended, normal active bowel sounds. Colostomy site present in the left lower quadrant, PEG tube present in the upper abdomen. There is a crack in the tube EXTREMITIES: Normal range of motion. No edema. SKIN: Warm, dry, no rash. NEURO: No focal deficits. Alert to baseline. PSYCH: Normal mood and affect. Course Vital Signs Vital signs: Vital Signs Temperature 36.8 C 12/13/22 22:38 Pulse Rate 92 12/13/22 22:38 Respiratory Rate 19 12/13/22 22:38 Blood Pressure 99/73 L 12/13/22 22:38 Pulse Oximetry 96 12/13/22 22:38 Temperature 36.8 C 12/13/22 22:38 Pulse Rate 92 12/13/22 22:38 Respiratory Rate 19 12/13/22 22:38 Blood Pressure 99/73 L 12/13/22 22:38 Pulse Oximetry 96 12/13/22 22:38 Procedures Feeding Tube Replacement Feeding Tube #1: Feeding Tube Placement Date: 12/14/22 Feeding Tube Placement Time: 00:31 Type of Tube: gastrostomy Insertion Site Prior to Procedure: clean Tube Used for Reinsertion: other (20 Polish PEG tube) Polish Tube Size (F): 20 Balloon size (mL): 20 Verification of Placement: KUB and gastrografin injection Tube Secured by: tape/dressing Patient Tolerated Procedure: well and no complications Medical Decision Making MDM Narrative Medical decision making narrative: Patient's PEG tube showed evidence of a malfunction is approximately 1 month old. The previous PEG tube was a 20 Polish. The old tube was removed and a new 1 was placed Gastrografin tube study was performed which showed Gastrografin in the stomach and adequate placement of the tube. Vital Signs Vital Signs: Vital Signs Temperature 36.8 C 12/13/22 22:38 Pulse Rate 92 12/13/22 22:38 Respiratory Rate 19 12/13/22 22:38 Blood Pressure 99/73 L 12/13/22 22:38 Pulse Oximetry 96 12/13/22 22:38 Temperature 36.8 C 12/13/22 22:38 Pulse Rate 92 12/13/22 22:38 Respiratory Rate 19 12/13/22 22:38 Blood Pressure 99/73 L 12/13/22 22:38 Pulse Oximetry 96 12/13/22 22:38 Discharge Plan Discharge Clinical Impression: Malfunction of percutaneous endoscopic gastrostomy (PEG) tube Patient Disposition: Home, Self-Care Condition: Stable Instructions: Antibiotic Form, How to Use and Care for Your PEG Tube (ED), PEG Tube Insertion (DC) Prescriptions: No Action cefdinir 300 mg Capsule 300 mg feedi
--- NOTE | 2022-12-14 01:23 | PC.NURSE ---
Spoke with patient prison and staff aware of patient coming back per EMS. no questions at time of report.
== END 2022-12-14 04:40 ==
PROVIDERS: Emergency Provider Emergency Medicine; PCP Internal Medicine
DX: K94.23 Gastrostomy malfunction (principal)
CPT/HCPCS: 49450; 99284

== ENCOUNTER 2023-02-18 13:43 | Observation (INO) | payer OTHER, SELFPAY ==
[2023-02-18 13:44] VITALS: BP 129/92; PULSE 110; RESP 15; TEMP 37.1; O2SAT 99
--- NOTE | 2023-02-18 14:31 | ED.ABDPAIN ---
HPI - Abdominal Pain General Chief Complaint: Abdominal Pain Stated Complaint: pulled G tube out Time Seen by Provider: 02/18/23 14:30 Source: patient History of Present Illness HPI narrative: Feeding tube pulled around 9 AM, patient came to the ED 5 hours later. Patient in the feeding tube stoma is closed with scab Related Data Home Medications Medication Instructions Recorded Confirmed hydrocortisone 0.25 % topical cream 1 applic topical TID 02/18/23 02/18/23 ondansetron 4 mg disintegrating See Rx Instructions .Route 02/18/23 02/18/23 tablet .COMPLEX PRN Nausea Allergies Allergy/AdvReac Type Severity Reaction Status Date / Time No Known Allergies Allergy Verified 02/18/23 18:03 Review of Systems Review of Systems: ROS unobtainable: Yes unobtainable due to medical condition and unobtainable due to mental status PMF Past Medical History Medical History (Updated 02/18/23 @ 17:23 by Kelly Hawkins PA-C) Autism Cognitive developmental delay Surgical History Surgical History (Updated 02/18/23 @ 17:20 by Kelly Hawkins PA-C) History of exploratory laparotomy (09/2022) Exploratory laparotomy with sigmoid colon resection and colostomy for ischemic bowel. History of gastrostomy tube placement Family History Family History Other Family history unknown Social History Social History (Updated 02/18/23 @ 17:21 by Kelly Hawkins PA-C) Social History: Surrogate medical decision maker: Man Swanson, father or Samia Hale, sister. Code status: Full code. Smoking status: Never smoker Alcohol intake: never Substance use: never Additional living arrangements comments: Resident at [facility]. Spiritual care concerns: No Exam Narrative: General appearance: Well-developed Skin: Normal color Eyes: Clear conjunctiva Abdomen: Soft, nontender, no organomegaly, quiet bowel sounds, feeding tube stoma is closed with healing scab Neurologic: Alert, disoriented x4 Course Consultations Consultation #1: Dr. Henning Admit to hospitalist Date: 02/18/23 Time: 16:19 Vital Signs Vital signs: Vital Signs Temperature 37.1 C 02/18/23 13:44 Pulse Rate 110 H 02/18/23 13:44 Respiratory Rate 15 02/18/23 13:44 Blood Pressure 129/92 H 02/18/23 13:44 Pulse Oximetry 99 02/18/23 13:44 Oxygen Delivery Room Air 02/18/23 13:44 Temperature 37.1 C 02/18/23 13:44 Pulse Rate 110 H 02/18/23 13:44 Respiratory Rate 15 02/18/23 13:44 Blood Pressure 129/92 H 02/18/23 13:44 Pulse Oximetry 99 02/18/23 13:44 Oxygen Delivery Room Air 02/18/23 13:44 MDM - Abdominal Pain Differential Diagnosis Differential diagnosis: Likely other (Feeding tube rePlacement) Critical Care Time Critical Care Time Critical Care Time: Yes Total Critical Care Time: 30 Discharge Plan Discharge Clinical Impression: Encounter for feeding tube placement Patient Disposition: Still a Patient Condition: Stable
--- NOTE | 2023-02-18 15:56 | PC.NURSE ---
Provider unable to replace G-tube.
--- NOTE | 2023-02-18 16:00 | PC.NURSE ---
This RN spoke with TARYN Devries from [facility] and she states the G-tube was in place at 0830 when she gave him his medications and when she went back in at 1100, the G-tube was out. She is unsure exactly what time it was removed.
[2023-02-18] MEDS: SODIUM CHLORIDE 0.9% IV 1,000 ML 100 ML IV CONT (16:42)
--- NOTE | 2023-02-18 17:15 | PM.IMHP ---
H&P: HPI History of Present Illness Date/Time: 02/18/23 17:15 Chief Complaint: Dislodged G-tube. Narrative: This is a none for 42-year-old male with developmental delay and autism who presented to the emergency department via EMS from [facility] his alf after was discovered that his G-tube became dislodged. He is unable to provide any history. According to documentation his G-tube was found to be dislodged at about 09:00 but unfortunately nothing was inserted into the stoma to keep it open. He was sent to the ED 5 hours later and is being admitted in this setting for G-tube placement tomorrow. At the time my evaluation he is alert and is mostly cooperative although he pushes my hands away when I attempt to examine his abdomen. He does not seem to be in any pain. He is afebrile with stable vital signs. Review of Systems Review of Systems: Unable to assess as he is nonverbal. [facility] Past Medical History Medical History (Updated 02/18/23 @ 17:23 by Kelly Hawkins PA-C) Autism Cognitive developmental delay Surgical History Surgical History (Updated 02/18/23 @ 17:20 by Kelly Hawkins PA-C) History of exploratory laparotomy (09/2022) Exploratory laparotomy with sigmoid colon resection and colostomy for ischemic bowel. History of gastrostomy tube placement Family History Family History (Updated 02/18/23 @ 17:20 by Kelly Hawkins PA-C) Other Family history unknown Social History Social History (Updated 02/18/23 @ 17:21 by Kelly Hawkins PA-C) Social History: Surrogate medical decision maker: Man Swanson, father or Samia Hale, sister. Code status: Full code. Smoking status: Never smoker Alcohol intake: never Substance use: never Additional living arrangements comments: Resident at [facility]. Spiritual care concerns: No Meds Home Medications and Allergies Home Medications Medication Instructions Recorded Confirmed Type cefdinir 300 mg capsule 300 mg feeding tube Q12HR 5 days 11/08/22 Rx #10 caps famotidine 20 mg tablet 20 mg feeding tube Q12HR 30 days 11/08/22 Rx #60 tabs metronidazole 250 mg tablet 500 mg feeding tube Q8HR 5 days 11/08/22 Rx #30 tabs Allergies Allergy/AdvReac Type Severity Reaction Status Date / Time No Known Allergies Allergy Verified 11/06/22 13:21 Vital Signs Vital Signs - 24 hr 02/18/23 13:44 Temperature 98.8 F Pulse Rate 110 H Respiratory Rate 15 Blood Pressure 129/92 H Pulse Oximetry 99 Oxygen Delivery Room Air Exam Narrative: General: Chronically ill-appearing male in the semi-Bob position in bed. Weight: 58.97 kg. HEENT: PERRL. Sclera anicteric. Oral exam not performed as she would not open his mouth. Neck: Supple. Respiratory: Respirations are nonlabored. Lung sounds diminished due to poor effort but are otherwise clear to auscultation anteriorly. Cardiovascular: Regular rate and rhythm with S1-S2. Gastrointestinal: Abdomen is soft and flat. Positive bowel sounds. Colostomy bag contains soft brown stool. G-tube site is closed. Skin: Warm and dry. No rash or lesions on limited exam. Extremities: No cyanosis, clubbing, or edema. Radial and pedal pulses intact. Contractures of the lower extremities. Neurological: Alert. Cranial nerves 2-12 are grossly intact. He does not participate in the neurologic exam. Psychiatric: Cooperative. Unable to assess as he is nonverbal with developmental delay. Assessment and Plan Assessment and plan (1) Dislodged gastrostomy tube: Code(s): T85.528A - Displacement of other gastrointestinal prosthetic devices, implants and grafts, initial encounter Status: Acute (2) Autism: Code(s): F84.0 - Autistic disorder Status: Acute Plan The patient presented to the ED after was discovered his G-tube became dislodged. He will of course be NPO for G-tube placement tomorrow per Dr. Henning. Baseline labs ordered t
[2023-02-18 18:05] VITALS: BMI 18.6
--- NOTE | 2023-02-18 18:15 | ADMGEN ---
This patient, Ricky Swanson, was admitted to Medical Room 256-. Patient/family oriented to hospital policies and general routines including ID bracelet, bed and alarms, visiting hours, pain management, procedures, bathroom and other care routines, personal items, smoking policy, room service/diet, and visiting hours. Information on how to activate the Rapid Response Team has been discussed. Patient/Family are encouraged to report perceived risks to care and to ask questions if they do not understand what they are told or what they should do.
[2023-02-18] MEDS: SODIUM CHLORIDE 0.9% IV 1,000 ML 125 ML IV CONT (18:28)
[2023-02-18 20:02] VITALS: BP 119/85; PULSE 113; RESP 18; TEMP 38.6; O2SAT 95
[2023-02-18 20:50] LABS: Hematocrit 44.9 % (42.0-52.0); Hemoglobin 14.2 g/dL (14.0-18.0); Mean Corpuscular HGB Conc 31.6 g/dl (32-36); Mean Corpuscular Hemoglobin 26.2 pg (26-34); Mean Corpuscular Volume 82.7 fl (80-100); Mean Platelet Volume 10.1 fl (7.4-10.4); Platelet Count Result 242 k/mm3 (150-375); Red Blood Count 5.43 M/mm3 (4.6-6.20); Red Cell Distribution Width 17.2 % (11.5-14.5)
[2023-02-18 21:00] LABS: Anion Gap 9 mmol/L (8-16); Blood Urea Nitrogen 10 mg/dL (9-20); Calcium 8.9 mg/dL (8.4-10.2); Carbon Dioxide 28 mmol/L (22-30); Chloride 99 mmol/L (98-107); Estimated CRCL calculation 161 ml/min; Estimated Glomerular Filt Rate > 60; Glucose 110 mg/dL (65-110); Potassium 5.1 mmol/L (3.4-5.0); Sodium 136 mmol/L (137-145)
[2023-02-18 21:23] VITALS: TEMP 38.6
[2023-02-18 21:53] VITALS: TEMP 37.1
--- NOTE | 2023-02-19 02:52 | PC.NURSE ---
PT PULLED OUT IV ACCESS. PT FIDGETING AND PULLING AT ALL DEVICES ADMITTED FOR PULLING OUT G TUBE. PT HAS VERY LIMITED VEINS FOR IV ACCESS. PT ASSESSED BY 2 NURSES MYSELF AND CHARGE NURSE GUERRERO WELL SAMPLE COLLECTOR. WE WERE ALL UNABLE TO FIND IV ACCESS. IT WAS DECIDED THAT SINCE PT IS RESTLESS AND PULLING AT EVERYTHING IT IS BEST TO WAIT UNTIL CLOSER TO HIS PROCEDURE TO OBTAIN IV ACCESS.
[2023-02-19 06:00] VITALS: BP 122/84; PULSE 107; RESP 18; TEMP 36.4; O2SAT 96
--- NOTE | 2023-02-19 07:04 | WPDGICN ---
Assessment and Plan Assessment and plan (1) Dislodged gastrostomy tube: Code(s): T85.528A - Displacement of other gastrointestinal prosthetic devices, implants and grafts, initial encounter Status: Acute Assessment and Plan: peg tube placement will be done today. Because of the delay in getting to the emergency room his previous G-tube site had closed up completely. (2) Encounter for feeding tube placement: Code(s): Z46.59 - Encounter for fitting and adjustment of other gastrointestinal appliance and device Status: Acute Assessment and Plan: He had tolerated G-tube placement in October. We will place another G-tube today. (3) Autism: Code(s): F84.0 - Autistic disorder Status: Acute Assessment and Plan: he is nonverbal, but watching TV and in no distress. GI Consult Note Consult date/time: 02/19/23 07:04 HPI: Ricky Swanson is a 42 year old male [facility] who is nonverbal. He was hospitalized a few months ago with septic shock. It was noted that his nutrition is very poor. He subsequently had G-tube placement. He was doing well but yesterday morning apparently pulled out his G-tube. He was brought to the emergency room later today. By that point the G-tube site had completely closed, and the staff was unable to insert even a small Cardona catheter. He therefore was admitted and rehydrated and will need replacement of a G-tube today. Review of Systems Review of Systems: All systems reviewed & are unremarkable except as noted in HPI and below PMFSH Past Medical History Medical History Autism Cognitive developmental delay Surgical History Surgical History History of exploratory laparotomy (09/2022) Exploratory laparotomy with sigmoid colon resection and colostomy for ischemic bowel. History of gastrostomy tube placement Family History Family History Other Family history unknown Social History Social History Social History: Surrogate medical decision maker: Man Swanson, father or Samia Hale, sister. Code status: Full code. Smoking status: Never smoker Alcohol intake: never Substance use: never Additional living arrangements comments: Resident at [facility]. Spiritual care concerns: No Meds Home Medications and Allergies Home Medications Medication Instructions Recorded Confirmed Type famotidine 20 mg tablet 20 mg feeding tube Q12HR 30 days 11/08/22 02/18/23 Rx #60 tabs hydrocortisone 0.25 % topical cream 1 applic topical TID 02/18/23 02/18/23 History ondansetron 4 mg disintegrating See Rx Instructions .Route 02/18/23 02/18/23 History tablet .COMPLEX PRN Nausea Allergies Allergy/AdvReac Type Severity Reaction Status Date / Time No Known Allergies Allergy Verified 02/18/23 19:32 Vital Signs Vital Signs - 24 hr 02/18/23 13:44 02/18/23 18:30 02/18/23 20:02 Temperature 37.1 C 38.6 C H Pulse Rate 110 H 113 H Respiratory Rate 15 18 Blood Pressure 129/92 H 119/85 Pulse Oximetry 99 95 Oxygen Delivery Room Air Room Air 02/18/23 21:23 02/18/23 20:00 02/18/23 21:53 Temperature 38.6 C H 37.1 C Pulse Rate Respiratory Rate Blood Pressure Pulse Oximetry Oxygen Delivery Room Air 02/19/23 06:00 Temperature 36.4 C L Pulse Rate 107 H Respiratory Rate 18 Blood Pressure 122/84 Pulse Oximetry 96 Oxygen Delivery Exam Const: General: awake and other ( Unable to communicate) Orientation/consciousness: Other orientation findings ( unable to assess) Resp: Auscultation: clear to auscultation bilaterally Cardio: Rhythm: regular rhythm GI: Inspection: incision ( a small dressing cover C ostomy site which has a small black sca
[2023-02-19 09:21] LABS: Basophils Percent Auto 0.2 % (0.2-1.2); Eosinophils Absolute Auto 0.1 K/mm3 (0-0.3); Eosinophils Percent Auto 0.6 % (0-4.4); Hematocrit 44.9 % (42.0-52.0); Hemoglobin 14.3 g/dL (14.0-18.0); Immature Granulocyte Absolute 0.04 K/mm3 (0.00-0.031); Immature Granulocyte Percent A 0.3 % (0-0.5); Lymphocytes Absolute Auto 1.81 K/mm3 (0.9-3.2); Lymphocytes Percent Auto 11.5 % (18.3-44.2); Mean Corpuscular HGB Conc 31.8 g/dl (32-36); Mean Corpuscular Hemoglobin 26.7 pg (26-34); Mean Corpuscular Volume 83.9 fl (80-100); Mean Platelet Volume 10.7 fl (7.4-10.4); Monocytes Absolute Auto 1.3 K/mm3 (0.1-0.6); Neutrophils Absolute Auto 12.5 K/mm3 (1.3-6.7); Neutrophils Percent Auto 79.4 % (45.5-73.1); Platelet Count Result 211 k/mm3 (150-375); Red Blood Count 5.35 M/mm3 (4.6-6.20); Red Cell Distribution Width 17.5 % (11.5-14.5); White Blood Count 15.8 K/mm3 (4.5-10.0)
[2023-02-19 09:34] LABS: Alanine Aminotransferase 44 U/L (6-50); Albumin Level 4.1 g/dL (3.5-5.1); Alkaline Phosphatase 115 U/L (38-126); Anion Gap 8 mmol/L (8-16); Aspartate Amino Transferase 29 U/L (17-59); Bilirubin,Total 1.1 mg/dL (0.2-1.3); Blood Urea Nitrogen 11 mg/dL (9-20); Calcium 9.1 mg/dL (8.4-10.2); Carbon Dioxide 25 mmol/L (22-30); Chloride 102 mmol/L (98-107); Estimated CRCL calculation 121 ml/min; Estimated Glomerular Filt Rate > 60; Glucose 91 mg/dL (65-110); Potassium 4.7 mmol/L (3.4-5.0); Sodium 135 mmol/L (137-145)
[2023-02-19 10:06] VITALS: BMI 13.9
--- NOTE | 2023-02-19 11:05 | PC.NURSE ---
pt to GI lab via silke
[2023-02-19 11:16] VITALS: BP 117/73; PULSE 116; RESP 20; TEMP 37.1; O2SAT 95
[2023-02-19] MEDS: ceFAZolin 1 GM/NS 50 ML 1 GM/50 ML BAG IVPB (12:27)
[2023-02-19] MEDS: LACTATED RINGERS 1,000 ML 150 ML IV CONT (12:28)
[2023-02-19 12:57] VITALS: BP 98/69; PULSE 111; RESP 24; O2SAT 99
[2023-02-19 13:07] VITALS: BP 116/65; PULSE 109; RESP 20; O2SAT 100
[2023-02-19 13:17] VITALS: BP 118/76; PULSE 113; RESP 22; O2SAT 97
--- NOTE | 2023-02-19 13:28 | PC.NURSE ---
pt returned from GI lab, reviewed plan of care and MD orders, pt transferred to bed and is resting comfortably
--- NOTE | 2023-02-19 14:32 | PM.IMPN ---
Progress Note: A&P Assessment and Plan (1) Dislodged gastrostomy tube: Code(s): T85.528A - Displacement of other gastrointestinal prosthetic devices, implants and grafts, initial encounter Status: Acute Assessment and Plan: The patient presented to the ED after was discovered his G-tube became dislodged. G-tube placement 02/19/[address] Henning. Initiate aspiration precautions. Elevate head of bed. His home medications are currently on hold, transitioned to IV form if possible. Patient started on IV Protonix and p.r.n. IV Zofran IV fluids continued. Patient is tachycardic during this hospital stay but this seems to be his baseline due to previous hospitalization recordings. (2) Autism: Code(s): F84.0 - Autistic disorder Status: Chronic Assessment and Plan: Patient is nonverbal and can be combative. Subjective Date/time seen: 02/19/23 14:32 Interval history: Patient is nonverbal but does not appear to be any distress. Review of Systems Review of Systems: All systems reviewed & are unremarkable except as noted in HPI and below Exam Narrative: GENERAL: Comfortable, no acute distress EYES: EOM intact b/l NECK: no lymphadenopathy RESPIRATORY: clear to auscultation CARDIO: RRR GI: Colostomy bag present and bandage over previous G-tube site, abdomen soft and nontender, bowel sounds present SKIN: no rashes EXTREMITIES: no edema, redness or tenderness Objective Data Vital Signs Vital Signs: Vital Signs - 24 hr 02/18/23 18:30 02/18/23 20:02 02/18/23 21:23 Temperature 101.4 F H 101.4 F H Pulse Rate 113 H Respiratory Rate 18 Blood Pressure 119/85 Pulse Oximetry 95 Oxygen Delivery Room Air Oxygen Flow Rate 02/18/23 20:00 02/18/23 21:53 02/19/23 06:00 Temperature 98.8 F 97.5 F L Pulse Rate 107 H Respiratory Rate 18 Blood Pressure 122/84 Pulse Oximetry 96 Oxygen Delivery Room Air Oxygen Flow Rate 02/19/23 11:16 02/19/23 12:57 02/19/23 13:07 Temperature 98.8 F Pulse Rate 116 H 111 H 109 H Respiratory Rate 20 24 H 20 Blood Pressure 117/73 98/69 L 116/65 Pulse Oximetry 95 99 100 Oxygen Delivery Room Air Nasal Cannula Nasal Cannula Oxygen Flow Rate 2 2 02/19/23 13:17 Temperature Pulse Rate 113 H Respiratory Rate 22 H Blood Pressure 118/76 Pulse Oximetry 97 Oxygen Delivery Room Air Oxygen Flow Rate Intake/Output Intake/Output: Intake & Output 02/16/23 02/17/23 02/18/23 02/19/23 23:59 23:59 23:59 23:59 Intake Total 520 100 Output Total 1050 300 Balance -530 -200 Meds/Results Medications: Active Medications Generic Name Dose Route Start Last Admin Trade Name Freq PRN Reason Stop Dose Admin Acetaminophen 1,000 mg in 100 mls @ 400 mls/hr 02/18/23 16:13 02/18/23 21:38 Ofirmev 1,000 Mg Ivpb IVPB 02/19/23 16:12 Infused Q6H PRN Infusion Mild Pain (1-3) or Fever Sodium Chloride 1,000 mls @ 125 mls/hr 02/18/23 16:15 02/19/23 07:00 Normal Saline Iv IV CONT 0 mls/hr .Q8H FARZAD Infusion Ondansetron HCl 4 mg 02/18/23 16:13 Ondansetron Inj 4 Mg/2 Ml Vial IV PUSH Q4H PRN Nausea Ondansetron HCl 4 mg 02/19/23 08:21 Ondansetron Hcl Odt 4 Mg Tablet XX Q6H PRN Nausea Pantoprazole Sodium 40 mg 02/19/23 09:00 Pantoprazole Sodium Iv 40 Mg Vial IV PUSH Q12HR FARZAD Labs Labs: Laboratory Results - last 24 hr 02/18/23 02/18/23 02/19/23 20:40 20:40 09:14 WBC 22.0 H 15.8 H RBC 5.43 5.35 Hgb 14.2 D 14.3 Hct 44.9 44.9 MCV 82.7 83.9 MCH 26.2 26.7 MCHC 31.6 L 31.8 L RDW 17.2 H 17.5 H Plt Count 242 211 MPV 10.1 10.7 H Immature Gran % (Auto) 0.3 Neut % (Auto) 79.4 H Lymph % (Auto) 11.5 L Sumner % (Auto) 8.0 Eos % (Auto) 0.6 Baso % (Auto) 0.2 Lymph # (Auto) 1.81 Sumner # (Auto) 1.3 H Eos # (Auto) 0.1 Baso # (Auto) 0.0 Abs Immat Gran (auto) 0.04 H Absolute Neuts (au
[2023-02-19] MEDS: ONDANSETRON INJ 4 MG/2 ML VIAL IV PUSH (18:21)
[2023-02-19] MEDS: SODIUM CHLORIDE 0.9% IV 1,000 ML 125 ML IV CONT (18:36)
[2023-02-19] MEDS: PANTOPRAZOLE SODIUM IV 40 MG VIAL IV PUSH (20:05)
[2023-02-20] MEDS: SODIUM CHLORIDE 0.9% IV 1,000 ML 125 ML IV CONT ×2 (02:25→10:59)
[2023-02-20] MEDS: PANTOPRAZOLE SODIUM IV 40 MG VIAL IV PUSH (07:41)
[2023-02-20 08:00] VITALS: PULSE 113; RESP 22; O2SAT 97
[2023-02-20 08:25] VITALS: BP 120/75; PULSE 108; RESP 17; TEMP 37.3; O2SAT 93
[2023-02-20 08:44] LABS: Hematocrit 43.7 % (42.0-52.0); Hemoglobin 13.4 g/dL (14.0-18.0); Mean Corpuscular HGB Conc 30.7 g/dl (32-36); Mean Corpuscular Hemoglobin 26.5 pg (26-34); Mean Corpuscular Volume 86.5 fl (80-100); Platelet Count Result 244 k/mm3 (150-375); Red Blood Count 5.05 M/mm3 (4.6-6.20); Red Cell Distribution Width 17.2 % (11.5-14.5); White Blood Count 16.6 K/mm3 (4.5-10.0)
[2023-02-20 08:47] LABS: Anion Gap 14 mmol/L (8-16); Blood Urea Nitrogen 11 mg/dL (9-20); Calcium 8.3 mg/dL (8.4-10.2); Carbon Dioxide 23 mmol/L (22-30); Chloride 105 mmol/L (98-107); Estimated CRCL calculation 82 ml/min; Estimated Glomerular Filt Rate > 60; Glucose 110 mg/dL (65-110); Potassium 4.4 mmol/L (3.4-5.0); Sodium 142 mmol/L (137-145)
--- NOTE | 2023-02-20 09:45 | WPDANESPN ---
Anes - Prog Note Post-Op Date/Time: 02/20/23 09:45 Cardiovascular status: normal Respiratory status: normal Airway patency: baseline Mental status: baseline Post-Op hydration status: normal Vital Signs: Last Vital Signs Temp 37.3 C 02/20/23 08:25 Pulse 108 H 02/20/23 08:25 Resp 17 02/20/23 08:25 BP 120/75 02/20/23 08:25 Pulse Ox 93 02/20/23 08:25 O2 Del Method Room Air 02/20/23 08:00 O2 Flow Rate 2 02/19/23 13:07 Pain Score (VAS): Patient asleep, no nonverbal signs of pain present at this time. I/O: Intake & Output 02/19/23 02/20/23 02/20/23 23:59 07:59 15:59 Intake Total 1000 1000 Output Total 900 Balance 1000 100 Laboratory Tests 02/20/23 08:02 02/20/23 02/20/23 08:02 08:02 WBC Pending RBC Pending Hgb Pending Hct Pending MCV Pending MCH Pending MCHC Pending RDW Pending Plt Count Pending MPV Pending Sodium 142 Potassium 4.4 Chloride 105 Carbon Dioxide 23 Anion Gap 14 BUN 11 Creatinine 0.60 L Estim Creat Clear Calc 82 Estimated GFR > 60 Glucose 110 Calcium 8.3 L Post-procedural complaints: none Patient Feedback: Patient satisfied with anesthetic care.
--- NOTE | 2023-02-20 11:30 | PM.IMPN ---
Progress Note: A&P Assessment and Plan (1) Dislodged gastrostomy tube: Code(s): T85.528A - Displacement of other gastrointestinal prosthetic devices, implants and grafts, initial encounter Status: Acute Assessment and Plan: The patient presented to the ED after was discovered his G-tube became dislodged. G-tube placement 02/19/[address] Henning. Initiate aspiration precautions. Elevate head of bed. His home medications are currently on hold, transitioned to IV form if possible. Patient started on IV Protonix and p.r.n. IV Zofran IV fluids continued. Patient is tachycardic during this hospital stay but this seems to be his baseline due to previous hospitalization recordings. (2) Autism: Code(s): F84.0 - Autistic disorder Status: Chronic Assessment and Plan: Patient is nonverbal and can be combative. Subjective Date/time seen: 02/20/23 11:30 Exam Narrative: GENERAL: Comfortable, no acute distress EYES: EOM intact b/l NECK: no lymphadenopathy RESPIRATORY: clear to auscultation CARDIO: RRR GI: Colostomy bag present and bandage over previous G-tube site, abdomen soft and nontender, bowel sounds present SKIN: no rashes EXTREMITIES: no edema, redness or tenderness Objective Data Vital Signs Vital Signs: Vital Signs - 24 hr 02/19/23 12:57 02/19/23 13:07 02/19/23 13:17 Temperature Pulse Rate 111 H 109 H 113 H Respiratory Rate 24 H 20 22 H Blood Pressure 98/69 L 116/65 118/76 Pulse Oximetry 99 100 97 Oxygen Delivery Nasal Cannula Nasal Cannula Room Air Oxygen Flow Rate 2 2 02/19/23 20:00 02/20/23 08:25 02/20/23 08:00 Temperature 99.1 F Pulse Rate 108 H 113 H Respiratory Rate 17 22 H Blood Pressure 120/75 Pulse Oximetry 93 97 Oxygen Delivery Room Air Room Air Oxygen Flow Rate Intake/Output Intake/Output: Intake & Output 02/17/23 02/18/23 02/19/23 02/20/23 23:59 23:59 23:59 23:59 Intake Total 520 1100 2000 Output Total 1050 900 900 Balance -173 913 1936 Meds/Results Medications: Active Medications Generic Name Dose Route Start Last Admin Trade Name Freq PRN Reason Stop Dose Admin Sodium Chloride 1,000 mls @ 125 mls/hr 02/18/23 16:15 02/20/23 10:59 Normal Saline Iv IV CONT 125 mls/hr .Q8H FARZAD Administration Ondansetron HCl 4 mg 02/18/23 16:13 02/19/23 18:21 Ondansetron Inj 4 Mg/2 Ml Vial IV PUSH 4 mg Q4H PRN Administration Nausea Ondansetron HCl 4 mg 02/19/23 08:21 Ondansetron Hcl Odt 4 Mg Tablet XX Q6H PRN Nausea Pantoprazole Sodium 40 mg 02/19/23 09:00 02/20/23 07:41 Pantoprazole Sodium Iv 40 Mg Vial IV PUSH 40 mg Q12HR FARZAD Administration Labs Labs: Laboratory Results - last 24 hr 02/20/23 02/20/23 08:02 08:02 WBC 16.6 H RBC 5.05 Hgb 13.4 L Hct 43.7 MCV 86.5 MCH 26.5 MCHC 30.7 L RDW 17.2 H Plt Count 244 MPV 11.0 H Sodium 142 Potassium 4.4 Chloride 105 Carbon Dioxide 23 Anion Gap 14 BUN 11 Creatinine 0.60 L Estim Creat Clear Calc 82 Estimated GFR > 60 Glucose 110 Calcium 8.3 L
--- NOTE | 2023-02-20 11:32 | PM.DS ---
DS: Admitting Diagnosis Discharge Date 02/20/23 Admitting Diagnosis G-tube dislodgement DS: Discharge Diagnosis Discharge Diagnosis (1) Dislodged gastrostomy tube: Code(s): T85.528A - Displacement of other gastrointestinal prosthetic devices, implants and grafts, initial encounter Status: Acute Assessment and Plan: The patient presented to the ED after was discovered his G-tube became dislodged. G-tube placement 02/19/[address] Henning. Initiate aspiration precautions. Elevate head of bed. His home medications are currently on hold, transitioned to IV form if possible. Patient started on IV Protonix and p.r.n. IV Zofran IV fluids continued. Patient is tachycardic during this hospital stay but this seems to be his baseline due to previous hospitalization recordings. (2) Autism: Code(s): F84.0 - Autistic disorder Status: Chronic Assessment and Plan: Patient is nonverbal and can be combative. DS: Summary Hospital Course Reason for hospitalization: G-tube displacement Hospital Course: This is a 42-year-old male with history of developmental delay and autism presents to the ED from [facility] after patient was found with his G-tube dislodged. Patient is nonverbal and unable to provide history. Patient was admitted in evaluated by GI. Patient had G-tube reinserted on 02/19/2023. It is recommended that patient be put in an abdominal binder to help prevent G-tube removal from reoccurring. Patient was mildly tachycardic during his hospital stay although when looking back at previous stays this seems to be normal for him. Patient is stable after procedure performed and after discussing with GI he has been cleared to be discharged back into the care of his detention. Time Spent with Patient Time attestation: Total time spent providing and/or coordinating discharge services: Exam Narrative: GENERAL: Comfortable, no acute distress EYES: EOM intact b/l NECK: no lymphadenopathy RESPIRATORY: clear to auscultation CARDIO: RRR GI: Colostomy bag present and bandage over previous G-tube site, abdomen soft and nontender, bowel sounds present SKIN: no rashes EXTREMITIES: no edema, redness or tenderness DS: Data Data Completed and Pending Labs on day of discharge: Labs from last 24 hours 02/20/23 02/20/23 08:02 08:02 WBC 16.6 H RBC 5.05 Hgb 13.4 L Hct 43.7 MCV 86.5 MCH 26.5 MCHC 30.7 L RDW 17.2 H Plt Count 244 MPV 11.0 H Sodium 142 Potassium 4.4 Chloride 105 Carbon Dioxide 23 Anion Gap 14 BUN 11 Creatinine 0.60 L Estim Creat Clear Calc 82 Estimated GFR > 60 Glucose 110 Calcium 8.3 L Discharge Plan Discharge Attending physician on discharge: Almas Daly Consulting providers: Stone Henning Discharging Clinician: Shayy Sanchez Patient Disposition: NH Usp/Asst Living Activity: as tolerated Diet: tube feeding Discharge Instructions: Discharge disposition: Take medications as prescribed Monitor blood pressures Avoid social areas, you wear a mask when in social settings Encouraged to continue with yearly vaccinations Return to the emergency department if he developed sudden shortness of breath, chest pain, nausea, vomiting, upset stomach or intractable diarrhea Return to the emergency department if you develop fever greater than 100.4 Follow-up with the primary care physician within 1-2 weeks Thank you for [facility] for your healthcare needs Patient Instructions: Antibiotic Form Stand Alone Forms: General Discharge Information Follow-up/Referrals: Minerva,Harmony Munguia MD [Primary Care Provider] - Discharge Medications: Continued famotidine 20 mg Tablet 20 mg feeding tube Q12HR 30 Days Qty: 60 0RF ondansetron 4 mg Tablet,Disintegrating See Rx Instructions .ROUTE .COMPLEX PRN (Reason: Nausea) Rx Instructions: 4 mg via
[2023-02-20 12:24] LABS: EDCOVIDSCREEN Negative (Negative)
[2023-02-20 14:36] VITALS: BP 130/77; PULSE 100; RESP 17; TEMP 37.3; O2SAT 94
[2023-02-20 20:00] VITALS: BP 121/77; PULSE 104; RESP 18; TEMP 37.2; O2SAT 93
== END 2023-02-21 01:07 ==
LOC: ANHED 16:02 → ANH2MED 17:26
PROVIDERS: Internal Medicine Critical Care Medicine; Internal Medicine Gastroenterology; Physician Assistant; Admitting Provider Student in an Organized Health Care Education/Training Program; Emergency Provider Emergency Medicine; PCP Internal Medicine; Visit Provider Internal Medicine
PROC: 0DH63UZ Insertion of Feeding Device into Stomach, Percutaneous Approach (ICD-10-PCS; CPT 43246; principal; 2023-02-19 13:15)
DX: T85.528A Displacement of other gastrointestinal prosthetic devices, implants and grafts, initial encounter (principal); Z46.59 Encounter for fitting and adjustment of other gastrointestinal appliance and device; R13.19 Other dysphagia; F84.0 Autistic disorder; F81.9 Developmental disorder of scholastic skills, unspecified; Z20.822 Contact with and (suspected) exposure to COVID-19; Z79.899 Other long term (current) drug therapy
CPT/HCPCS: 36415; 43246; 80048; 80053; 83735; 85025; 85027; 87426; 96360; 96361; 96374; 99285; A9270; C9113; C9803; G0378; G0379; J0131; J0690; J2405; J2704; J7030; J7120

== ENCOUNTER 2023-03-01 06:00 | Emergency (ER) | payer OTHER, SELFPAY ==
--- NOTE | ~2023-03-01 | XR_ITS ---
XR G tube replacement w image DATE: 03/01/2023 07:32 INDICATION: Gastrostomy tube replacement TECHNIQUE: Portable supine AP view on March 01, 2023 and 0710 hours COMPARISON: December 13, 2022 portable supine AP view FINDINGS: Gastrostomy tube overlies the body of the stomach. Contrast material in the tube and gastri c lumen in very proximal duodenum. No extravasated contrast material is noted. Prominent fecal material in the colon. IMPRESSION: Gastrostomy tube in stomach Reviewed, dictated and finalized at [facility] Reviewed, dictated and finalized at [facility]. IMPRESSION: Gastrostomy tube in stomach
[2023-03-01 06:03] VITALS: BP 125/85; PULSE 105; RESP 18; TEMP 36.6; O2SAT 95
--- NOTE | 2023-03-01 06:15 | ED.GENADULT ---
HPI - General Adult General Chief complaint: Unspecified <Naeem Beach MD - Last Filed: 03/01/23 06:45> Stated complaint: removed g tube <Naeem Beach MD - Last Filed: 03/01/23 06:45> History of Present Illness HPI narrative: Nonverbal 42-year-old male presenting ED for removed G-tube. No other information was provided from the group home. The patient is nonverbal. G-tube was placed Three months ago and should have a mature tract. <Naeem Beach MD - Last Filed: 03/01/23 06:45> Related Data Home medications: Home Medications Medication Instructions Recorded Confirmed hydrocortisone 0.25 % topical cream 1 applic topical TID 02/18/23 02/18/23 ondansetron 4 mg disintegrating See Rx Instructions .Route 02/18/23 02/18/23 tablet .COMPLEX PRN Nausea <Naeem Beach MD - Last Filed: 03/01/23 06:45> Allergies/adverse reactions: Allergies Allergy/AdvReac Type Severity Reaction Status Date / Time No Known Allergies Allergy Verified 02/19/23 11:15 <Naeem Beach MD - Last Filed: 03/01/23 06:45> [facility] Past Medical History Medical History: Medical History Autism Cognitive developmental delay <Naeem Beach MD - Last Filed: 03/01/23 06:45> Surgical History Surgical History: Surgical History History of exploratory laparotomy (09/2022) Exploratory laparotomy with sigmoid colon resection and colostomy for ischemic bowel. History of gastrostomy tube placement <Naeem Beach MD - Last Filed: 03/01/23 06:45> Family History Family History: Family History Other Family history unknown <Naeem Beach MD - Last Filed: 03/01/23 06:45> Social History Social History: Social History Social History: Surrogate medical decision maker: Man Swanson, father or Samia Hale, sister. Code status: Full code. Smoking status: Never smoker Alcohol intake: never Substance use: never Additional living arrangements comments: Resident at [facility]. Spiritual care concerns: No <Naeem Beach MD - Last Filed: 03/01/23 06:45> Exam Narrative: APPEARANCE: No apparent distress. Head: atraumatic. EYES: EOMI, NOSE: Atraumatic NECK: Trachea midline RESPIRATORY: No increased rate of breathing, clear to auscultation CARDIOVASCULAR: regular rate and rhythm ABDOMINAL: G-tube in place, no surrounding erythema or cellulitis. Colostomy bag in place. Abdomen is soft nontender. MUSCULOSKELETAl: Contracted NEURO: Alert. Alert moving 4 4 extremities. Nonverbal SKIN:: Warm, dry. Normal color PSYCHIATRIC: autistic/nonverbal <Naeem Beach MD - Last Filed: 03/01/23 06:45> Course Reevaluation(s) Reevaluation #1: Patient care was signed out to me by Dr. Beach with anticipated discharge after confirmation of a functioning G-tube. Patient is a 42-year-old male presenting from [facility] for evaluation of a G-tube. Patient's G-tube was found to be functional and a confirming x-ray showed proper G-tube placement. Patient was discharged back to his care facility. <Gabo Boswell MD - Last Filed: 03/01/23 18:49> Vital Signs Vital signs: Vital Signs Temperature 97.9 F 03/01/23 06:03 Pulse Rate 105 H 03/01/23 06:03 Respiratory Rate 18 03/01/23 06:03 Blood Pressure 125/85 03/01/23 06:03 Pulse Oximetry 95 03/01/23 06:03 Oxygen Delivery Room Air 03/01/23 06:03 Temperature 97.9 F 03/01/23 06:03 Pulse Rate 85 03/01/23 10:16 Respiratory Rate 16 03/01/23 10:16 Blood Pressure 122/77 03/01/23 10:16 Pulse Oximetry 100 03/01/23 10:16 Oxygen Delivery Room Air 03/01/23 06:03 <Naeem Beach MD - Last Filed: 03/01/23 06:45> Vital Signs Temperature
[2023-03-01 10:16] VITALS: BP 122/77; PULSE 85; RESP 16; O2SAT 100
== END 2023-03-01 10:52 ==
PROVIDERS: Emergency Provider Emergency Medicine; PCP Internal Medicine
DX: K94.23 Gastrostomy malfunction (principal); F84.0 Autistic disorder
CPT/HCPCS: 49450; 99283

== ENCOUNTER 2023-09-05 10:13 | Inpatient (IN) | payer OTHER, SELFPAY ==
[2023-09-05] VITALS (10 sets, daily range): BP systolic 115–138; BP diastolic 73–82; PULSE 115–139; RESP 18–26; TEMP 36.4–37.2; O2SAT 94–98
--- NOTE | ~2023-09-05 | CT_ITS ---
EXAMINATION: CT abdomen pelvis wo con DATE: 09/05/2023 12:20 INDICATION: Weakness, renal failure TECHNIQUE: Computed tomography (CT) of the abdomen and pelvis was performed without intravenous contr ast. The dose-length product (DLP) was 11/01/2022 mGy-cm. Automated exposure control and iterative rec onstruction technique were employed. COMPARISON: 11/01/2022 FINDINGS: Minimal dependent atelectasis is present in the lung bases. The heart size is normal. Emphy sema and large bullae are again noted in the visualized lower lobes. There is a small sliding hiatal hernia. There is a 3 mm cyst of the liver. The spleen, pancreas, gallbladder, and adrenal glands are normal. A gastrostomy tube is noted. There is mild bilateral hydroureteronephrosis. The right ureter traverses and unexpected course crossing the midline to the left abdomen in its proximal portion. The re is a moderate volume of urine in the bladder. A Cardona catheter is also noted. There is mild fat st randing surrounding the urinary bladder. There is a small volume of stool in the rectal stump. There is a left lower quadrant ostomy. IMPRESSION: 1. Moderate distention of the urinary bladder with surrounding fat stranding suspicious for cystitis. Reviewed, dictated and finalized at location B. IMPRESSION: 1. Moderate distention of the urinary bladder with surrounding fat stranding bird spicious for cystitis.
--- NOTE | ~2023-09-05 | XR_ITS ---
EXAMINATION: XR abdomen gastric tube rechec DATE: 09/06/2023 11:44 INDICATION: Gastrostomy tube placement. TECHNIQUE: A supine view of the abdomen was obtained. COMPARISON: Abdomen radiograph 03/01/2023, CT abdomen and pelvis 09/05/2023 FINDINGS: There is a gastrostomy tube in expected position overlying the stomach. There are mildly di lated loops of small bowel in left abdomen. The colon is normal in caliber. IMPRESSION: 1. Gastrostomy tube in expected position overlying the stomach. 2. Dilated small bowel in left abdomen, likely adynamic ileus. Reviewed, dictated and finalized at location A.
--- NOTE | ~2023-09-05 | XR_ITS ---
Portable chest x-ray Comparison: 10/31/2022 Clinical History: Weakness Findings: Probable linear scar or atelectasis the right lung base. No other definite pulmonary abnor mality seen. Cardiomediastinal silhouette is stable. Bones and soft tissues are unremarkable. Impression: Linear scar or atelectasis right lung base, otherwise clear lungs. Reviewed, dictated and finalized at location . Impression: Linear scar or atelectasis right lung base, otherwise clear lungs.
--- NOTE | ~2023-09-05 | XR_ITS ---
EXAMINATION: XR abdomen gastric tube rechec DATE: 09/06/2023 17:16 INDICATION: Potentially miss placed percutaneous gastrostomy tube TECHNIQUE: A supine view of the abdomen and lower chest was obtained for evaluation of feeding tube placement. COMPARISON: 09/06/2023 FINDINGS: Percutaneous gastrostomy tube bulb projects over the body the stomach. The injected contrast seen maximilian nissa at the proximal body of the stomach with small amount of contrast extending to the region of t he pylorus. No extraluminal extravasation of contrast. There is additional gas scattered throughout s everal not frankly dilated loops of bowel. Round opacity projecting over the left abdomen likely repr esenting an ostomy. Lungs are clear with no pleural effusion or pneumothorax. Heart size is normal. IMPRESSION: 1. Percutaneous gastrostomy tube bulb and injected contrast within the stomach. No extraluminal contr ast extravasation. Reviewed, dictated and finalized at location A. IMPRESSION: 1. Percutaneous gastrostomy tube bulb and injected contrast within the stomach. No extraluminal contrast extravasation.
--- NOTE | ~2023-09-05 | US_ITS ---
EXAMINATION: US renal BI DATE: 09/06/2023 11:17 INDICATION: Acute kidney injury. TECHNIQUE: Multiple ultrasound grayscale images of the kidneys were obtained. COMPARISON: CT abdomen and pelvis 09/05/2023 FINDINGS: The right kidney measures 9.4 x 3.6 x 4.3 cm. The left kidney measures 10.1 x 5.5 x 5.1 cm. The kidne ys demonstrate normal parenchymal echogenicity. There is no hydronephrosis. The bladder is decompress ed by a Cardona catheter. IMPRESSION: 1. Normal kidneys. No hydronephrosis. Reviewed, dictated and finalized at location A.
[2023-09-05 11:28] LABS: Basophils Absolute Auto 0.1 K/mm3 (0.0-0.1); Basophils Percent Auto 0.2 % (0.2-1.2); Hematocrit 47.3 % (42.0-52.0); Hemoglobin 15.3 g/dL (14.0-18.0); Immature Granulocyte Absolute 0.92 K/mm3 (0.00-0.031); Immature Granulocyte Percent A 2.4 % (0-0.5); Lymphocytes Absolute Auto 0.75 K/mm3 (0.9-3.2); Lymphocytes Percent Auto 1.9 % (18.3-44.2); Mean Corpuscular HGB Conc 32.3 g/dl (32-36); Mean Corpuscular Hemoglobin 28.3 pg (26-34); Mean Corpuscular Volume 87.6 fl (80-100); Mean Platelet Volume 8.7 fl (7.4-10.4); Monocytes Absolute Auto 3.1 K/mm3 (0.1-0.6); Monocytes Percent Auto 7.9 % (2.6-8.5); Neutrophils Percent Auto 87.6 % (45.5-73.1); Platelet Count Result 382 k/mm3 (150-375); Red Cell Distribution Width 14.5 % (11.5-14.5); White Blood Count 38.9 K/mm3 (4.5-10.0)
[2023-09-05] MEDS: SODIUM CHLORIDE 0.9% IV 1,000 ML 999 ML IV CONT ×2 (11:28→14:35)
--- NOTE | 2023-09-05 11:28 | ED.WEAKNESS ---
HPI - Weakness General Chief complaint: Weakness <Radha Valdes PA-C - Last Filed: 09/05/23 19:38> Stated complaint: n/v <Radha Valdes PA-C - Last Filed: 09/05/23 19:38> Time Seen by Provider: 09/05/23 10:21 <Radha Valdes PA-C - Last Filed: 09/05/23 19:38> Source: patient and EMS <Radha Valdes PA-C - Last Filed: 09/05/23 19:38> Mode of arrival: EMS <Radha Valdes PA-C - Last Filed: 09/05/23 19:38> Limitations: other (patient is nonverbal, history of autism) <Radha Valdes PA-C - Last Filed: 09/05/23 19:38> History of Present Illness HPI Narrative: This is a 43-year-old male that presents to the emergency department for lethargy. Ongoing over the last 2 days. Patient is nonverbal with history of autism, he provides no further history. <Radha Valdes PA-C - Last Filed: 09/05/23 19:38> Related Data Home medications: Home Medications Medication Instructions Recorded Confirmed ondansetron 4 mg disintegrating See Rx Instructions .Route 02/18/23 09/05/23 tablet .COMPLEX PRN Nausea <Radha Valdes PA-C - Last Filed: 09/05/23 19:38> Allergies/Adverse reactions: Allergies Allergy/AdvReac Type Severity Reaction Status Date / Time No Known Allergies Allergy Verified 09/05/23 12:24 <Radha Valdes PA-C - Last Filed: 09/05/23 19:38> Review of Systems Review of Systems: ROS unobtainable: Yes unobtainable due to medical condition <Radha Valdes PA-C - Last Filed: 09/05/23 19:38> PMFSH Past Medical History Medical History: Medical History Autism Cognitive developmental delay <Radha Valdes PA-C - Last Filed: 09/05/23 19:38> Surgical History Surgical History: Surgical History History of exploratory laparotomy (09/2022) Exploratory laparotomy with sigmoid colon resection and colostomy for ischemic bowel. History of gastrostomy tube placement <Radha Valdes PA-C - Last Filed: 09/05/23 19:38> Family History Family History: Family History Other Family history unknown <Radha Valdes PA-C - Last Filed: 09/05/23 19:38> Social History Social History: Social History Social History: Surrogate medical decision maker: Man Swanson, father or Samia Hale, sister. Code status: Full code. Smoking status: Never smoker Alcohol intake: never Substance use: never Additional living arrangements comments: Resident at [facility]. <Radha Valdes PA-C - Last Filed: 09/05/23 19:38> Exam Narrative: GENERAL: Lethargic, thin, and in no acute distress. HEAD: Normocephalic, atraumatic. EYES: EOMI. CHEST: Clear to auscultation. No respiratory distress. No wheezes rales or rhonchi HEART: Regular rate and rhythm. No murmur heard. Normal peripheral pulses. ABDOMEN: Soft, nontender, nondistended, normal active bowel sounds. No CVA tenderness EXTREMITIES: Normal range of motion. No edema. SKIN: Warm, dry, no rash. NEURO: No focal deficits. Lethargic, will follow some commands. Moving extremities <Radha Valdes PA-C - Last Filed: 09/05/23 19:38> Course Course Emergency Course: Cardona catheter exchanged while in the ED <Radha Valdes PA-C - Last Filed: 09/05/23 19:38> KELLER MACHINE OPERATOR/PA Physician Supervision For this patient encounter, I reviewed the KELLER MACHINE OPERATOR or PA documentation, treatment plan, and I was responsible for the medical decision making; and I had [id number] time with this patient. <Gabo Boswell MD - Last Filed: 09/06/23 06:57> Consultations Consultation #1: Spoke with hospitalist about patient and workup who accepts admission <Radha Valdes PA-C - Last Filed: 09/05/23 19:38> Date: 09/05/23 <Radha Valdes PA-C - Last Filed:
--- NOTE | 2023-09-05 11:35 | ECG_ITS ---
Measurements Intervals [place] Rate: 122 P: 57 MD: 136 QRS: 57 QRSD: 66 T: 70 QT: 317 QTc: 453 Interpretive Statements SINUS TACHYCARDIA SEPTAL MYOCARDIAL INFARCTION , OF INDETERMINATE AGE [40+ ms Q WAVE IN V1/V2] ABNORMAL ECG COMPARED TO ECG 10/16/2022 19:18:30 MYOCARDIAL INFARCT FINDING NOW PRESENT Electronically Signed On 09-05-2023 14:07:56 CDT by Desean Arce M.D.
[2023-09-05 11:39] LABS: Lactic Acid Reflex 2.4 mmol/L (0.7-2.0)
[2023-09-05 11:41] LABS: Alanine Aminotransferase 25 U/L (6-50); Albumin Level 4.6 g/dL (3.5-5.1); Alkaline Phosphatase 103 U/L (38-126); Anion Gap 14 mmol/L (8-16); Aspartate Amino Transferase 39 U/L (17-59); Bilirubin,Total 0.9 mg/dL (0.2-1.3); Blood Urea Nitrogen 35 mg/dL (9-20); Calcium 9.6 mg/dL (8.4-10.2); Carbon Dioxide 20 mmol/L (22-30); Chloride 108 mmol/L (98-107); Estimated CRCL calculation 17 ml/min; Estimated Glomerular Filt Rate 25; Glucose 147 mg/dL (65-110); Lipase 21 U/L (23-300); Potassium 4.3 mmol/L (3.4-5.0); Sodium 142 mmol/L (137-145)
[2023-09-05 11:54] LABS: CRP 17.6 mg/dL (<1.0)
--- NOTE | 2023-09-05 12:09 | PC.NURSE ---
Patient to car scan at this time
[2023-09-05 12:39] LABS: Appearance Urine Turbid (Clear); Bacteria Urine 4+ /hpf; Bilirubin Urine Negative (Negative); Blood Urine 3+ (Negative); Color Urine Yellow (Yellow); Glucose Urine UA Negative (Negative); Ketones Urine Trace mg/dL (Negative); Leukocyte Esterase Ur 3+ LEU/UL (Negative); Mucus Urine Present /lpf; Nitrate Urine Negative (Negative); Non Pathogenic Casts >20; Protein Urine 3+ mg/dL (Negative); RBC Urine >100 /hpf (0-2); Specific Grav Ur 1.014 (1.001-1.035); Squamous Epithelial Cell Urine None seen /hpf (Few); Urobilinogen Urine 0.2 mg/dL (<2.0); WBC Urine >100 /hpf; pH Urine 8.5 (5.0-9.0)
[2023-09-05 12:42] LABS: Add Urine Microscopic? YES
[2023-09-05] MEDS: SODIUM CHLORIDE 0.9% IV 500 ML 999 ML IV CONT (13:04)
[2023-09-05 14:23] LABS: Reflex Lactic Acid Yes or No Add Lactic
--- NOTE | 2023-09-05 14:28 | PM.IMHP ---
H&P: HPI History of Present Illness Date/Time: 09/05/23 14:00 Chief Complaint: Lethargy and vomiting. Narrative: This is a 43-year-old male with developmental delay and autism who presented to the emergency department via EMS from [facility] for evaluation of lethargy and vomiting. He is unable to provide any history. According to documentation he has been less interactive and lethargic the past 48 hours and this morning he had an episode of emesis and he was brought in for evaluation. The patient is not able to express any concerns but he does guard when trying to examine his abdomen. Temperature was 99? on arrival to the ED. Blood pressures have been stable. He has been consistently tachycardic in the 1 teens to 120s. Labs were significant for a WBC count of 38.9, BUN 35, creatinine 3.30, CRP 17.6. Urine was grossly purulent with 3+ leukocyte esterase, greater than 100 wbc's, and 4+ bacteria. Chest x-ray shows linear scar atelectasis in right lung base, otherwise clear lungs. CT of the abdomen pelvis showed moderate distention of the urinary bladder with surrounding fat stranding suspicious for cystitis. He received 2 L normal saline and 1 g of ceftriaxone he is being admitted in this setting for further antibiotics. Review of Systems Review of Systems: Unable to obtain as he is nonverbal as above. [facility] Past Medical History Medical History Autism Cognitive developmental delay Surgical History Surgical History History of exploratory laparotomy (09/2022) Exploratory laparotomy with sigmoid colon resection and colostomy for ischemic bowel. History of gastrostomy tube placement Family History Family History Other Family history unknown Social History Social History Social History: Surrogate medical decision maker: Man Swanson, father or Samia Hale, sister. Code status: Full code. Smoking status: Never smoker Alcohol intake: never Substance use: never Additional living arrangements comments: Resident at [facility]. Spiritual care concerns: No Meds Home Medications and Allergies Home Medications Medication Instructions Recorded Confirmed Type famotidine 20 mg tablet 20 mg feeding tube Q12HR 30 days 11/08/22 02/18/23 Rx #60 tabs hydrocortisone 0.25 % topical cream 1 applic topical TID 02/18/23 02/18/23 History ondansetron 4 mg disintegrating See Rx Instructions .Route 02/18/23 02/18/23 History tablet .COMPLEX PRN Nausea Allergies Allergy/AdvReac Type Severity Reaction Status Date / Time No Known Allergies Allergy Verified 09/05/23 12:24 Vital Signs Vital Signs - 24 hr 09/05/23 10:14 Temperature 99 F Pulse Rate 130 H Respiratory Rate 20 Blood Pressure 127/75 Pulse Oximetry 95 Oxygen Delivery Room Air Exam Narrative: General: Mildly ill-appearing male lying on his right side in bed in no distress. He is nontoxic in appearance. Weight: 46.8 kg. BMI: 19.5. HEENT: Normocephalic, atraumatic. PERRL, EOMI. Sclera anicteric. Oral exam not performed as he would not open his mouth. Neck: Supple. Respiratory: Lungs are clear to auscultation bilaterally. Cardiovascular: Tachycardic with normal S1-S2. Gastrointestinal: Abdomen is soft, nontender, and nondistended with positive bowel sounds. Ostomy bag with minimal output. Cardona catheter draining grossly purulent urine. Skin: Warm and dry. Extremities: No cyanosis, clubbing, or edema. Radial and pedal pulses intact. Neurological: Alert. Cranial nerves 2-12 are grossly intact. He does not participate in the neurologic exam. Psychiatric: Unable to assess. H&P: Results Labs Labs: Short CBC 09/05/23 Range/Units 11:17 WBC 38.9 H (4.5-10.0) K/mm3 Hgb
--- NOTE | 2023-09-05 16:47 | ADMGEN ---
This patient, Ricky Swanson, was admitted to Medical Room 346-01. Patient/family oriented to hospital policies and general routines including ID bracelet, bed and alarms, visiting hours, pain management, procedures, bathroom and other care routines, personal items, smoking policy, room service/diet, and visiting hours. Information on how to activate the Rapid Response Team has been discussed. Patient/Family are encouraged to report perceived risks to care and to ask questions if they do not understand what they are told or what they should do.
[2023-09-05] MEDS: LACTATED RINGERS 1,000 ML 75 ML IV CONT (17:17)
[2023-09-05] MEDS: ONDANSETRON INJ 4 MG/2 ML VIAL IV PUSH (20:56)
[2023-09-06] VITALS (9 sets, daily range): BP systolic 118–130; BP diastolic 76–85; PULSE 102–123; RESP 16–18; TEMP 36.5–36.9; O2SAT 94–96
[2023-09-06] MEDS: MEROPENEM 1 GM/NS 100 ML 1 GM/100 ML BAG IVPB ×3 (00:03→21:39)
[2023-09-06] MEDS: LACTATED RINGERS 1,000 ML 75 ML IV CONT (06:20)
--- NOTE | 2023-09-06 11:20 | PM.IMPN ---
Progress Note: A&P Assessment and Plan (1) Sepsis: Code(s): A41.9 - Sepsis, unspecified organism Status: Acute Assessment and Plan: Present on admission supported by fever, tachycardia, leukocytosis, and elevated lactic acid level. He also has an acute kidney injury. Related to UTI. vital signs stable. Lactic acid level normal. blood and urine cultures pending. Repeat labs pending (2) Urinary tract infection: Code(s): N39.0 - Urinary tract infection, site not specified Status: Acute Assessment and Plan: Patient with a chronic indwelling Cardona catheter. UA noted. Cardona catheter has been exchanged. meropenem has been started. Follow-up on blood and urine cultures. (3) Acute kidney injury: Code(s): N17.9 - Acute kidney failure, unspecified Status: Acute Assessment and Plan: Likely due to a combination of poorly draining Cardona catheter (purulent urine noted when Cardona catheter was replaced), possible ATN from sepsis, dehydration. Renal ultrasound pending. CT scan did show mild bilateral hydroureteronephrosis. Suspect this is related to Cardona obstruction. The right ureter also traverses and expected course. Continue judicious IV fluid rehydration. Avoid nephrotoxic agents. Repeat labs pending (4) Dislodged gastrostomy tube: Code(s): T85.528A - Displacement of other gastrointestinal prosthetic devices, implants and grafts, initial encounter Status: Acute Assessment and Plan: G-tube may be displaced. Check imaging. Resuming tube feeding if GTube in place. Subjective Date/time seen: 09/06/23 11:20 Interval history: 43-year-old male with developmental delay and autism who presented to the emergency department via EMS from [facility] for evaluation of lethargy and vomiting.? Patient unable to provide history. Nursing staff is concerned the G-tube has been pulled out. Review of Systems Review of Systems: ROS unobtainable: Yes unobtainable due to mental status Exam Narrative: AF 97.7 130/77 115 18 94% ra Gen - NARD Chest - clear anteriorly to quiet respirations CV - RRR S1/S2 Abd -soft. Multiple well-healed scars noted. G-tube in place at the 4 cm crys. No surrounding erythema. Ostomy with stool in ostomy bag noted in the left lower quadrant. +BS -fully secured draining clear yellow urine Ext - No pedal edema Neuro -awake and alert. He is nonverbal. He resists most of the exam. Skin - Warm and dry Objective Data Vital Signs Vital Signs: Vital Signs - 24 hr 09/05/23 14:40 09/05/23 11:46 09/05/23 13:30 Temperature Pulse Rate 120 H 129 H Respiratory Rate 18 22 H 20 Blood Pressure 115/79 135/82 Pulse Oximetry 98 Oxygen Delivery 09/05/23 14:30 09/05/23 14:31 09/05/23 16:24 Temperature 98.2 F Pulse Rate 119 H 115 H 130 H Respiratory Rate 20 20 18 Blood Pressure 115/79 138/81 Pulse Oximetry 96 98 Oxygen Delivery 09/05/23 20:42 09/05/23 20:00 09/05/23 20:00 Temperature 97.6 F Pulse Rate 118 H 119 H Respiratory Rate 18 Blood Pressure 138/77 Pulse Oximetry 97 Oxygen Delivery Room Air 09/06/23 00:00 09/06/23 04:00 09/06/23 05:03 Temperature 97.7 F Pulse Rate 108 H 107 H 115 H Respiratory Rate 18 Blood Pressure 130/77 Pulse Oximetry 94 Oxygen Delivery Intake/Output Intake/Output: Intake & Output 09/03/23 09/04/23 09/05/23 09/06/23 23:59 23:59 23:59 23:59 Intake Total 2550 1200 Output Total 1000 1050 Balance 1550 150 Meds/Results Medications: Active Medications Generic Name Dose Route Start Last Admin Trade Name Freq PRN Reason Stop Dose Admin Acetaminophen 650 mg 09/05/23 15:55 Acetaminophen 325 Mg Tablet PO Q6H PRN Mild Pain (1-3) or Fever Enoxaparin Sodium 30 mg 09/06/23 09:00 09/06/23 08:46 Enoxaparin 30 Mg/0.3 Ml Syringe SUB-Q Not Given DAILY FARZAD Lactated Ringer's ,00
[2023-09-06 13:45] LABS: Hematocrit 43.1 % (42.0-52.0); Hemoglobin 13.4 g/dL (14.0-18.0); Mean Corpuscular HGB Conc 31.1 g/dl (32-36); Mean Corpuscular Hemoglobin 28.5 pg (26-34); Mean Corpuscular Volume 91.7 fl (80-100); Mean Platelet Volume 9.2 fl (7.4-10.4); Platelet Count Result 318 k/mm3 (150-375); Red Cell Distribution Width 14.6 % (11.5-14.5)
[2023-09-06 14:23] LABS: Anion Gap 12 mmol/L (8-16); Blood Urea Nitrogen 19 mg/dL (9-20); Calcium 8.8 mg/dL (8.4-10.2); Carbon Dioxide 26 mmol/L (22-30); Chloride 112 mmol/L (98-107); Estimated CRCL calculation 70 ml/min; Estimated Glomerular Filt Rate > 60; Glucose 88 mg/dL (65-110); Magnesium 2.6 mg/dL (1.6-2.3); Sodium 150 mmol/L (137-145)
[2023-09-06 14:35] LABS: Band Neutrophils Percent 3 % (0-6); Lymphocytes Absolute Manual 2.24 K/mm3 (1.1-4.5); Monocytes Absolute Manual 0.32 K/mm3 (0.1-0.90); Monocytes Percent Manual 1 % (3-9); Neutrophils Absolute Manual 29.44 K/mm3 (1.3-6.7); Neutrophils Percent Manual 89 % (46-73); Total Cells Counted 100
[2023-09-06 14:36] LABS: Anisocytosis 1+ (NORMAL); Hypochromasia 1+ (NORMAL); Platelet Estimate Adequate (Adequate); Schistocytes None Seen (NORMAL)
[2023-09-06] MEDS: DEXTROSE 5%/0.45% SOD CHL 1,000 ML 70 ML IV CONT (17:19)
[2023-09-07] VITALS (7 sets, daily range): BP systolic 128–131; BP diastolic 69–91; PULSE 99–119; RESP 18; TEMP 36.2–36.6; O2SAT 94
[2023-09-07] MEDS: MEROPENEM 1 GM/NS 100 ML 1 GM/100 ML BAG IVPB ×2 (08:05→21:42)
[2023-09-07] MEDS: FAMOTIDINE 20 MG TABLET FEED TUBE ×2 (08:05→21:43)
--- NOTE | 2023-09-07 11:42 | PM.IMPN ---
Progress Note: A&P Assessment and Plan (1) Sepsis: Code(s): A41.9 - Sepsis, unspecified organism Status: Acute Assessment and Plan: Present on admission supported by tachycardia, leukocytosis, and elevated lactic acid level. He also has an acute kidney injury. Related to UTI possibly but UCx negative. Vital signs stable now. Lactic acid level normal. Repeat labs pending. Okay to stop tele (2) Urinary tract infection: Code(s): N39.0 - Urinary tract infection, site not specified Status: Acute Assessment and Plan: Patient with a chronic indwelling Cardona catheter. UA noted. Cardona catheter has been exchanged. Meropenem was started. UCx negative. BCx NGTD Symptoms related to obstruction and not infection? Continue abx for now. (3) Acute kidney injury: Code(s): N17.9 - Acute kidney failure, unspecified Status: Acute Assessment and Plan: Cr 3.3 on admission. Normal baseline renal function. Likely due to a combination of poorly draining Cardona catheter (purulent urine noted when Cardona catheter was replaced), possible ATN from sepsis, dehydration. CT scan did show mild bilateral hydroureteronephrosis. Renal ultrasound showing no acute findings. Suspect the hydronephrosis is related to Cardona obstruction and now resolved. Cr back to normal. Stop IV fluids. Repeat labs pending. (4) Dislodged gastrostomy tube: Code(s): T85.528A - Displacement of other gastrointestinal prosthetic devices, implants and grafts, initial encounter Status: Acute Assessment and Plan: Concern G-tube displacement. Imaging showing GTube in position. TF resumed. Monitor. Subjective Date/time seen: 09/07/23 11:42 Interval history: 43-year-old male with developmental delay and autism who presented to the ED via EMS from [facility] for evaluation of lethargy and vomiting.? Patient unable to provide history. TF resumed last night (he gets TF only at night) and he tolerated this well. Exam Narrative: AF 97.8 128/69 112 18 94% ra Gen - NARD Chest - clear anteriorly to quiet respirations CV - RRR S1/S2 Abd -soft. G-tube in place. Ostomy with stool in ostomy bag noted in the left lower quadrant. +BS - Cardona secured draining clear yellow urine Ext - No pedal edema Neuro -awake and alert. He is nonverbal. He resists most of the exam. Skin - Warm and dry Objective Data Vital Signs Vital Signs: Vital Signs - 24 hr 09/06/23 12:00 09/06/23 14:00 09/06/23 16:00 Temperature 98.4 F Pulse Rate 104 H 116 H 102 H Respiratory Rate 16 Blood Pressure 118/85 Pulse Oximetry 95 Oxygen Delivery 09/06/23 20:36 09/06/23 20:00 09/06/23 20:00 Temperature 97.8 F Pulse Rate 110 H 123 H Respiratory Rate 18 Blood Pressure 123/76 Pulse Oximetry 96 Oxygen Delivery Room Air 09/07/23 00:00 09/07/23 04:00 09/07/23 06:00 Temperature 97.8 F Pulse Rate 115 H 119 H 112 H Respiratory Rate 18 Blood Pressure 128/69 Pulse Oximetry 94 Oxygen Delivery Intake/Output Intake/Output: Intake & Output 09/04/23 09/05/23 09/06/23 09/07/23 23:59 23:59 23:59 23:59 Intake Total 2550 1300 897 Output Total 1000 1300 450 Balance 1550 0 447 Meds/Results Medications: Active Medications Generic Name Dose Route Start Last Admin Trade Name Freq PRN Reason Stop Dose Admin Acetaminophen 650 mg 09/05/23 15:55 Acetaminophen 325 Mg Tablet PO Q6H PRN Mild Pain (1-3) or Fever Enoxaparin Sodium 30 mg 09/06/23 09:00 09/07/23 08:17 Enoxaparin 30 Mg/0.3 Ml Syringe SUB-Q Not Given DAILY FARZAD Famotidine 20 mg 09/07/23 09:00 09/07/23 08:05 Famotidine 20 Mg Tablet FEED TUBE 20 mg Q12HR FARZAD Administration Meropenem 1 gm in 100 mls @ 200 mls/hr 09/05/23 23:30 09/07/23 08:35 IVPB Infused Q12HR FARZAD Infusion Ondansetron HCl 4 mg 09/05/23 15:55 09/05/23 20:56 Ondansetron In
[2023-09-07 13:30] LABS: Basophils Absolute Auto 0.1 K/mm3 (0.0-0.1); Basophils Percent Auto 0.3 % (0.2-1.2); Eosinophils Absolute Auto 0.2 K/mm3 (0-0.3); Eosinophils Percent Auto 0.7 % (0-4.4); Hematocrit 41.7 % (42.0-52.0); Hemoglobin 12.5 g/dL (14.0-18.0); Immature Granulocyte Absolute 0.11 K/mm3 (0.00-0.031); Immature Granulocyte Percent A 0.5 % (0-0.5); Lymphocytes Absolute Auto 3.48 K/mm3 (0.9-3.2); Lymphocytes Percent Auto 16.6 % (18.3-44.2); Mean Corpuscular Hemoglobin 28.4 pg (26-34); Mean Corpuscular Volume 94.8 fl (80-100); Monocytes Absolute Auto 1.4 K/mm3 (0.1-0.6); Monocytes Percent Auto 6.8 % (2.6-8.5); Neutrophils Absolute Auto 15.7 K/mm3 (1.3-6.7); Neutrophils Percent Auto 75.1 % (45.5-73.1); Platelet Count Result 302 k/mm3 (150-375); Red Cell Distribution Width 14.4 % (11.5-14.5); White Blood Count 20.9 K/mm3 (4.5-10.0)
[2023-09-07 13:44] LABS: Albumin Level 3.5 g/dL (3.5-5.1); Anion Gap 8 mmol/L (8-16); Blood Urea Nitrogen 14 mg/dL (9-20); Calcium 8.9 mg/dL (8.4-10.2); Carbon Dioxide 29 mmol/L (22-30); Chloride 111 mmol/L (98-107); Estimated CRCL calculation 90 ml/min; Estimated Glomerular Filt Rate > 60; Glucose 100 mg/dL (65-110); Phosphorus 2.2 mg/dL (2.5-4.5); Sodium 148 mmol/L (137-145)
[2023-09-07] MEDS: POTASSIUM/PHOSPHORUS/SODIUM 1.5 GM PACKET 1 PACKET FEED TUBE (18:06)
[2023-09-08 05:18] VITALS: BP 127/68; PULSE 102; RESP 16; TEMP 36.4; O2SAT 94
[2023-09-08 06:13] LABS: Basophils Absolute Auto 0.1 K/mm3 (0.0-0.1); Basophils Percent Auto 0.5 % (0.2-1.2); Eosinophils Absolute Auto 0.4 K/mm3 (0-0.3); Eosinophils Percent Auto 2.8 % (0-4.4); Hematocrit 47.1 % (42.0-52.0); Immature Granulocyte Absolute 0.05 K/mm3 (0.00-0.031); Immature Granulocyte Percent A 0.4 % (0-0.5); Lymphocytes Absolute Auto 3.27 K/mm3 (0.9-3.2); Lymphocytes Percent Auto 25.4 % (18.3-44.2); Mean Corpuscular HGB Conc 29.7 g/dl (32-36); Mean Corpuscular Hemoglobin 28.5 pg (26-34); Mean Corpuscular Volume 95.9 fl (80-100); Mean Platelet Volume 9.2 fl (7.4-10.4); Monocytes Percent Auto 7.4 % (2.6-8.5); Neutrophils Absolute Auto 8.2 K/mm3 (1.3-6.7); Neutrophils Percent Auto 63.5 % (45.5-73.1); Platelet Count Result 309 k/mm3 (150-375); Red Blood Count 4.91 M/mm3 (4.6-6.20); Red Cell Distribution Width 14.3 % (11.5-14.5); White Blood Count 12.9 K/mm3 (4.5-10.0)
[2023-09-08 06:30] LABS: Albumin Level 4.2 g/dL (3.5-5.1); Anion Gap 10 mmol/L (8-16); Blood Urea Nitrogen 14 mg/dL (9-20); Calcium 9.3 mg/dL (8.4-10.2); Carbon Dioxide 32 mmol/L (22-30); Chloride 109 mmol/L (98-107); Estimated CRCL calculation 90 ml/min; Estimated Glomerular Filt Rate > 60; Glucose 99 mg/dL (65-110); Magnesium 2.3 mg/dL (1.6-2.3); Phosphorus 3.8 mg/dL (2.5-4.5); Potassium 4.2 mmol/L (3.4-5.0); Sodium 151 mmol/L (137-145)
[2023-09-08] MEDS: MEROPENEM 1 GM/NS 100 ML 1 GM/100 ML BAG IVPB (08:11)
[2023-09-08] MEDS: FAMOTIDINE 20 MG TABLET FEED TUBE (08:11)
--- NOTE | 2023-09-08 12:52 | PM.DS ---
DS: Admitting Diagnosis Discharge Date 09/08/23 Admitting Diagnosis Lethargy and n/v DS: Discharge Diagnosis Discharge Diagnosis (1) Sepsis: Code(s): A41.9 - Sepsis, unspecified organism Status: Acute (2) Urinary tract infection: Code(s): N39.0 - Urinary tract infection, site not specified Status: Acute (3) Acute kidney injury: Code(s): N17.9 - Acute kidney failure, unspecified Status: Acute (4) Dislodged gastrostomy tube: Code(s): T85.528A - Displacement of other gastrointestinal prosthetic devices, implants and grafts, initial encounter Status: Acute (5) Hypernatremia: Code(s): E87.0 - Hyperosmolality and hypernatremia Status: Acute DS: Summary Hospital Course Reason for hospitalization: 43-year-old male with developmental delay and autism who presented to the ED via EMS from [facility] for evaluation of lethargy and vomiting.?Please see H&P for details. Hospital Course: Sepsis symptoms present on admission supported by tachycardia, leukocytosis and elevated lactic acid level. He also had an acute kidney injury.? Related to UTI possibly but UCx negative. Vital signs stable now.? Lactic acid level normal. Patient with a chronic indwelling Cardona catheter.? Cardona catheter was exchanged. Meropenem was started. BCx NGTD. Symptoms also related to obstruction. Cr 3.3 on admission. he has a normal baseline renal function. RACQUEL likely due to obstruction from poorly draining Cardona catheter (purulent urine noted when Cardona catheter was replaced), ATN from sepsis and dehydration.?CT scan did show mild bilateral hydroureteronephrosis.? Renal ultrasound performed after Cardona exchanged showing no acute findings.?Suspect the hydronephrosis was related to Cardona obstruction and now resolved.?Cr normalized. Nursing was concerned that the G-tube was displaced. Imaging performed showing GTube in position. TF resumed. Mild hypernatremia noted so free water flushes advanced. He had clinical improvement. He was able to be discharged on 09/08/23. Discussed with family and they were updated. Status at Discharge Cognitive/behavioral status at discharge: stable Time Spent with Patient Time attestation: Total time spent providing and/or coordinating discharge services:38 minutes Time spent: Greater than 30 minutes Exam Narrative: AF 97.6 127/68 102 16 94% ra Gen - NARD Chest - clear anteriorly to quiet respirations CV - RRR S1/S2 Abd -soft. G-tube in place. Ostomy with stool in ostomy bag noted in the left lower quadrant. +BS - Cardona secured draining clear yellow urine Ext - No pedal edema Neuro -awake and alert. He is nonverbal. He resists the exam. Skin - Warm and dry DS: Data Data Completed and Pending Labs on day of discharge: Labs from last 24 hours 09/08/23 09/07/23 05:49 13:05 WBC 12.9 H 20.9 H RBC 4.91 4.40 L Hgb 14.0 12.5 L Hct 47.1 41.7 L MCV 95.9 94.8 MCH 28.5 28.4 MCHC 29.7 L 30.0 L RDW 14.3 14.4 Plt Count 309 302 MPV 9.2 9.0 Immature Gran % (Auto) 0.4 0.5 Neut % (Auto) 63.5 75.1 H Lymph % (Auto) 25.4 16.6 L [place] % (Auto) 7.4 6.8 Eos % (Auto) 2.8 0.7 Baso % (Auto) 0.5 0.3 Lymph # (Auto) 3.27 H 3.48 H [place] # (Auto) 1.0 H 1.4 H Eos # (Auto) 0.4 H 0.2 Baso # (Auto) 0.1 0.1 Abs Immat Gran (auto) 0.05 H 0.11 H Absolute Neuts (auto) 8.2 H 15.7 H Absolute Nucleated RBC 0.0 0.0 Nucleated RBC % 0.0 0.0 Sodium 151 H 148 H Potassium 4.2 4.0 Chloride 109 H 111 H Carbon Dioxide 32 H 29 Anion Gap 10 8 BUN 14 14 D Creatinine 0.60 L 0.60 L Estim Creat Clear Calc 90 90 Estimated GFR > 60 > 60 Glucose 99 100 Calcium 9.3 8.9 Phosphorus 3.8 2.2 L Magnesium 2.3 Albumin 4.2 3.5 Preliminary micro results at discharge 09/05/23 11:17 Blood Culture - Preliminary Blood 09/05/23 11:17 Blood Culture - Preliminary Blood Discharge Plan
[2023-09-08 14:00] VITALS: BP 121/87; PULSE 96; RESP 16; TEMP 36.8; O2SAT 95
[2023-09-08 15:17] LABS: SARS-CoV-2 RNA PCR Negative (Negative)
--- NOTE | 2023-09-12 07:03 | PC.NURSE ---
Blood cx are negative. Dr. Malika pat.
== END 2023-09-08 17:00 | DRG 720 ==
LOC: ANHED 16:32 → ANH3MED 16:36
PROVIDERS: Physician Assistant; Admitting Provider Internal Medicine; Emergency Provider Physician Assistant; PCP Hospitalist; Visit Provider Internal Medicine
DX: A41.9 Sepsis, unspecified organism (principal); N13.6 Pyonephrosis; T83.091A Other mechanical complication of indwelling urethral catheter, initial encounter; E87.0 Hyperosmolality and hypernatremia; E86.0 Dehydration; F84.0 Autistic disorder; Z11.52 Encounter for screening for COVID-19; Z93.1 Gastrostomy status; N17.9 Acute kidney failure, unspecified
CPT/HCPCS: 36415; 71045; 74176; 76775; 80048; 80053; 80069; 81001; 83605; 83690; 83735; 85025; 86140; 87040; 87086; 87088; 87635; 93005; 96361; 96365; 99285; A9270; G0378; G0379; J0696; J1650; J2185; J2405; J7030; J7040; J7120

== ENCOUNTER 2023-11-13 12:23 | Inpatient (IN) | payer OTHER, SELFPAY ==
--- NOTE | ~2023-11-13 | CT_ITS ---
EXAMINATION: CT abdomen pelvis w con INDICATION: Coffee-ground emesis TECHNIQUE: Computed tomographic images of the abdomen and pelvis were obtained after the administrati on of 100 cc of Omnipaque 350 intravenous contrast. The dose-length product (DLP) was 338.14 mGy-cm. Automated exposure control and iterative reconstruction technique were employed. COMPARISON: 09/05/2023 FINDINGS: Emphysema and large bullae are again noted in the lower lobes. There is dependent atelectas is of the visualized lung bases. The heart size is normal. There is a small sliding hiatal hernia. A gastrostomy is present in expected position. There is mild wall thickening of the stomach. There is a 3 mm cyst of the liver. The spleen, pancreas, gallbladder, and adrenal glands are normal. Cysts of t he kidneys measure up to 1.4 cm on the left. There is diffuse wall thickening of the urinary bladder. There is mild urothelial enhancement of the distal right ureter. There is a Cardona catheter in the bl adder. A left lower quadrant ostomy is noted. No pathologically enlarged abdominal or pelvic lymph no sharan are identified. No free intraperitoneal gas or evidence of bowel obstruction. IMPRESSION: 1. Mild wall thickening of the stomach which could reflect gastritis. 2. Diffuse wall thickening of the urinary bladder with mild urothelial enhancement of the distal righ t ureter. Findings could reflect cystitis with ascending urinary tract infection. Reviewed, dictated and finalized at location [employer] IMPRESSION: 1. Mild wall thickening of the stomach which could reflect gastritis. 2. Diffuse wall thickening of the urinary bladder with mild urothelial enhancem ent of the distal right ureter. Findings could reflect cystitis with ascending urinary tract infection.
[2023-11-13 12:27] VITALS: BP 113/71; PULSE 130; RESP 19; TEMP 37.2; O2SAT 99
--- NOTE | 2023-11-13 13:54 | PC.NURSE ---
G tube irrigated with water, water returned upon draw back with no evidence of coffee ground substance. Scant gastric contents noted.
[2023-11-13 14:12] VITALS: BP 125/82; PULSE 142; RESP 21; TEMP 37.3
[2023-11-13] MEDS: SODIUM CHLORIDE 0.9% IV 1,000 ML 999 ML IV CONT ×2 (14:33→15:54)
[2023-11-13 14:48] LABS: Basophils Percent Auto 0.2 % (0.2-1.2); Hematocrit 46.3 % (42.0-52.0); Hemoglobin 14.5 g/dL (14.0-18.0); Immature Granulocyte Absolute 0.11 K/mm3 (0.00-0.031); Immature Granulocyte Percent A 0.5 % (0-0.5); Lymphocytes Absolute Auto 1.32 K/mm3 (0.9-3.2); Lymphocytes Percent Auto 5.9 % (18.3-44.2); Mean Corpuscular HGB Conc 31.3 g/dl (32-36); Mean Corpuscular Hemoglobin 27.6 pg (26-34); Mean Corpuscular Volume 88.2 fl (80-100); Mean Platelet Volume 8.5 fl (7.4-10.4); Monocytes Absolute Auto 1.1 K/mm3 (0.1-0.6); Monocytes Percent Auto 5.1 % (2.6-8.5); Neutrophils Absolute Auto 19.8 K/mm3 (1.3-6.7); Neutrophils Percent Auto 88.3 % (45.5-73.1); Platelet Count Result 307 k/mm3 (150-375); Red Blood Count 5.25 M/mm3 (4.6-6.20); Red Cell Distribution Width 13.7 % (11.5-14.5); White Blood Count 22.5 K/mm3 (4.5-10.0)
[2023-11-13 14:55] LABS: Lactic Acid Reflex 2.5 mmol/L (0.7-2.0)
[2023-11-13 14:56] LABS: Potassium 3.8 mmol/L (3.4-5.0)
[2023-11-13 14:58] LABS: Alanine Aminotransferase 24 U/L (6-50); Albumin Level 4.6 g/dL (3.5-5.1); Alkaline Phosphatase 109 U/L (38-126); Anion Gap 11 mmol/L (8-16); Aspartate Amino Transferase 29 U/L (17-59); Bilirubin,Total 0.8 mg/dL (0.2-1.3); Blood Urea Nitrogen 12 mg/dL (9-20); Calcium 9.4 mg/dL (8.4-10.2); Carbon Dioxide 23 mmol/L (22-30); Chloride 102 mmol/L (98-107); Estimated CRCL calculation 78 ml/min; Estimated Glomerular Filt Rate > 60; Glucose 108 mg/dL (65-110); Sodium 136 mmol/L (137-145)
[2023-11-13 15:00] LABS: INR 1.1; Prothrombin Time 14.1 Seconds (11.1-14.7)
[2023-11-13 15:01] LABS: Partial Thromboplastin Time 34.1 SECONDS (22.3-36.8)
--- NOTE | 2023-11-13 15:47 | PC.NURSE ---
Urine bag changed
[2023-11-13 16:19] LABS: Appearance Urine Turbid (Clear); Bacteria Urine 2+ /hpf; Bilirubin Urine Negative (Negative); Blood Urine 2+ (Negative); Color Urine Yellow (Yellow); Glucose Urine UA Negative (Negative); Ketones Urine Trace mg/dL (Negative); Leukocyte Esterase Ur 2+ LEU/UL (Negative); Need Manual Microscopic Reviewed; Nitrate Urine Negative (Negative); Protein Urine Trace mg/dL (Negative); RBC Urine 21-50 /hpf (0-2); Specific Grav Ur 1.059 (1.001-1.035); Squamous Epithelial Cell Urine None seen /hpf (Few); Urobilinogen Urine 0.2 mg/dL (<2.0); WBC Urine >100 /hpf
[2023-11-13 16:20] LABS: Add Urine Microscopic? YES
--- NOTE | 2023-11-13 16:49 | ED.GENADULT ---
HPI - General Adult General Chief complaint: GI Bleed Stated complaint: GI Bleed Time Seen by Provider: 11/13/23 13:30 History of Present Illness HPI narrative: Patient is a 43-year-old male with history of autism who presents ER with concerns for possible coffee-ground emesis. Patient receives feeds through a G-tube. He also has a colostomy. No reports of bloody stool. Patient can provide no history. Patient also has chronic indwelling Cardona catheter. Patient tachycardic on arrival. He appears to be in no distress. Related Data Home Medications Medication Instructions Recorded Confirmed ondansetron 4 mg disintegrating See Rx Instructions .Route 02/18/23 09/05/23 tablet .COMPLEX PRN Nausea Allergies Allergy/AdvReac Type Severity Reaction Status Date / Time No Known Allergies Allergy Verified 09/05/23 12:24 Review of Systems Review of Systems: ROS unobtainable: Yes unobtainable due to medical condition PMFSH Past Medical History Medical History Autism Cognitive developmental delay Surgical History Surgical History History of exploratory laparotomy (09/2022) Exploratory laparotomy with sigmoid colon resection and colostomy for ischemic bowel. History of gastrostomy tube placement Family History Family History Other Family history unknown Social History Social History Social History: Surrogate medical decision maker: Man Swanson, father or Samia Hale, sister. Code status: Full code. Smoking status: Never smoker Alcohol intake: never Substance use: never Additional living arrangements comments: Resident at [facility]. Exam Narrative: GENERAL: Chronically ill- appearing, well-nourished, and in no acute distress. HEAD: Normocephalic, atraumatic. EYES: PERRL and EOMI. ENT: Mucous membranes moist. NECK: Supple. CHEST: Clear to auscultation. No respiratory distress. HEART: Regular rate and rhythm. Normal peripheral pulses. ABDOMEN: Soft, nontender, nondistended. No irritation to G-tube site, LLQ colostomy. EXTREMITIES: Normal range of motion. No edema. SKIN: Warm, dry, no rash. NEURO: Awake alert, intermittently follows commands. At neurologic baseline. Course Course Emergency Course: Admit to hospitalist service. IV antibiotics ordered. Patient with 2 L IV fluid with improvement of heart rate. G-tube flushed and no coffee-ground material. Vital Signs Vital signs: Vital Signs Temperature 99 F 11/13/23 12:27 Pulse Rate 130 H 11/13/23 12:27 Respiratory Rate 19 11/13/23 12:27 Blood Pressure 113/71 11/13/23 12:27 Pulse Oximetry 99 11/13/23 12:27 Oxygen Delivery Room Air 11/13/23 12:27 Temperature 98.9 F 11/13/23 17:42 Pulse Rate 93 11/13/23 19:10 Respiratory Rate 13 11/13/23 19:10 Blood Pressure 110/64 11/13/23 19:10 Pulse Oximetry 98 11/13/23 19:10 Oxygen Delivery Room Air 11/13/23 12:27 Medical Decision Making Vital Signs Vital Signs: Vital Signs Temperature 99 F 11/13/23 12:27 Pulse Rate 130 H 11/13/23 12:27 Respiratory Rate 19 11/13/23 12:27 Blood Pressure 113/71 11/13/23 12:27 Pulse Oximetry 99 11/13/23 12:27 Oxygen Delivery Room Air 11/13/23 12:27 Temperature 98.9 F 11/13/23 17:42 Pulse Rate 93 11/13/23 19:10 Respiratory Rate 13 11/13/23 19:10 Blood Pressure 110/64 11/13/23 19:10 Pulse Oximetry 98 11/13/23 19:10 Oxygen Delivery Room Air 11/13/23 12:27 Lab Data 11/13/23 14:30 11/13/23 14:30 Labs: Lab Results 11/13/23 11/13/23 11/13/23 Range/Units 14:28 14:30 15:48 WBC 22.5 H (4.5-10.0) K/mm3 RBC 5.25 (4.6-6.20) M/mm3 Hgb 14.5 (14.0-18.0) g/dL Hct 46.3 (4
[2023-11-13] MEDS: PANTOPRAZOLE SODIUM IV 40 MG VIAL IV PUSH (17:39)
[2023-11-13] MEDS: SODIUM CHLORIDE 0.9% IV 1,000 ML 125 ML IV CONT (17:41)
[2023-11-13 17:42] VITALS: BP 112/64; PULSE 109; RESP 15; TEMP 37.2; O2SAT 98
[2023-11-13 17:43] LABS: Reflex Lactic Acid Yes or No Add Lactic
[2023-11-13 19:10] VITALS: BP 110/64; PULSE 93; RESP 13; O2SAT 98
--- NOTE | 2023-11-13 20:19 | PM.IMHP ---
H&P: HPI History of Present Illness Date/Time: 11/13/23 20:19 Chief Complaint: Nonverbal Narrative: This is a 43-year-old male who is non verbal past medical history significant for autism patient with PEG tube, colostomy chronic indwelling Cardona catheter. Was brought to the emergency room for evaluation after noted to have coffee-ground emesis. Preliminary workup was significant for urinalysis was numerous WBCs present. EXAMINATION: CT abdomen pelvis w con INDICATION: Coffee-ground emesis TECHNIQUE: Computed tomographic images of the abdomen and pelvis were obtained after the administration of 100 cc of Omnipaque 350 intravenous contrast. The dose-length product (DLP) was 338.14 mGy-cm. Automated exposure control and iterative reconstruction technique were employed. COMPARISON: 09/05/2023 FINDINGS: Emphysema and large bullae are again noted in the lower lobes. There is dependent atelectasis of the visualized lung bases. The heart size is normal. There is a small sliding hiatal hernia. A gastrostomy is present in expected position. There is mild wall thickening of the stomach. There is a 3 mm cyst of the liver. The spleen, pancreas, gallbladder, and adrenal glands are normal. Cysts of the kidneys measure up to 1.4 cm on the left. There is diffuse wall thickening of the urinary bladder. There is mild urothelial enhancement of the distal right ureter. There is a Cardona catheter in the bladder. A left lower quadrant ostomy is noted. No pathologically enlarged abdominal or pelvic lymph nodes are identified. No free intraperitoneal gas or evidence of bowel obstruction. IMPRESSION: 1. Mild wall thickening of the stomach which could reflect gastritis. 2. Diffuse wall thickening of the urinary bladder with mild urothelial enhancement of the distal right ureter. Findings could reflect cystitis with ascending urinary tract infection. Review of Systems Review of Systems: Patient is non verbal [facility] Past Medical History Medical History Autism Cognitive developmental delay Surgical History Surgical History History of exploratory laparotomy (09/2022) Exploratory laparotomy with sigmoid colon resection and colostomy for ischemic bowel. History of gastrostomy tube placement Family History Family History Other Family history unknown Social History Social History Social History: Surrogate medical decision maker: Man Swanson, father or Samia Hale, sister. Code status: Full code. Smoking status: Never smoker Second hand tobacco smoke exposure: No Alcohol intake: never Substance use: never Additional living arrangements comments: Resident at [facility]. Spiritual care concerns: No Meds Home Medications and Allergies Home Medications Medication Instructions Recorded Confirmed Type famotidine 20 mg tablet 20 mg feeding tube Q12HR 30 days 11/08/22 11/13/23 Rx #60 tabs Allergies Allergy/AdvReac Type Severity Reaction Status Date / Time No Known Allergies Allergy Verified 09/05/23 12:24 Vital Signs Vital Signs - 24 hr 11/13/23 12:27 11/13/23 14:12 11/13/23 17:42 Temperature 99 F 99.2 F 98.9 F Pulse Rate 130 H 142 H 109 H Respiratory Rate 19 21 H 15 Blood Pressure 113/71 125/82 112/64 Pulse Oximetry 99 98 Oxygen Delivery Room Air 11/13/23 19:10 Temperature Pulse Rate 93 Respiratory Rate 13 Blood Pressure 110/64 Pulse Oximetry 98 Oxygen Delivery Exam Narrative: Laying in a stretcher Const: General: comfortable, no acute distress, well developed, alert, awake and average body habitus Nutritional Appearance: thin Orientation/consciousness: Other orientation findings (Autism, nonverbal) Limitations: other limitations (Autism,
[2023-11-13 22:32] VITALS: BP 109/86; PULSE 104; RESP 12; TEMP 36.4; O2SAT 93
--- NOTE | 2023-11-13 23:11 | ADMGEN ---
This patient, Ricky Swanson, was admitted to [facility] Room 312-01 at 22:50. Patient oriented to hospital policies and general routines including ID bracelet, bed and alarms, visiting hours, pain management, procedures, bathroom and other care routines, personal items, smoking policy, room service/diet, and visiting hours. Information on how to activate the Rapid Response Team has been discussed. Patient/Family are encouraged to report perceived risks to care and to ask questions if they do not understand what they are told or what they should do.
[2023-11-13 23:20] VITALS: BP 133/77; PULSE 105; RESP 20; TEMP 37.6; O2SAT 98; BMI 19.6
[2023-11-14] MEDS: SODIUM CHLORIDE 0.9% IV 1,000 ML 125 ML IV CONT ×3 (02:00→17:34)
[2023-11-14 03:56] LABS: Lactic Acid 3.2 mmol/L (0.7-2.0)
[2023-11-14 06:00] VITALS: BP 112/91; PULSE 106; RESP 16; TEMP 37.3; O2SAT 96
[2023-11-14] MEDS: PANTOPRAZOLE SODIUM IV 40 MG VIAL IV PUSH ×2 (09:38→17:34)
[2023-11-14] MEDS: FAMOTIDINE 20 MG TABLET FEED TUBE ×2 (09:38→21:12)
[2023-11-14 12:35] VITALS: BMI 19.6
[2023-11-14 14:00] VITALS: BP 127/82; PULSE 100; RESP 14; TEMP 36.8; O2SAT 96
--- NOTE | 2023-11-14 14:26 | PM.IMPN ---
Progress Note: A&P Assessment and Plan (1) Acute UTI: Code(s): N39.0 - Urinary tract infection, site not specified Status: Acute Assessment and Plan: Urine appears infected with turbid appearance, 2+ blood, 2+ LE, 21-50 rbc's, greater than 100 wbc's and 2+ bacteria. Patient has chronic indwelling Cardona catheter and has been hospitalized multiple times for suspected UTI. Patient's previous urine cultures have all come up clear. Patient started on Rocephin. Urine cultures pending. (2) Gastritis: Code(s): K29.70 - Gastritis, unspecified, without bleeding Status: Acute Assessment and Plan: CT scan showing gastritis. Pantoprazole IV b.i.d. (3) Autism: Code(s): F84.0 - Autistic disorder Status: Chronic Assessment and Plan: Supportive care (4) Colostomy care: Code(s): Z43.3 - Encounter for attention to colostomy Status: Acute Assessment and Plan: Colostomy care (5) Chronic indwelling Cardona catheter: Code(s): Z97.8 - Presence of other specified devices Status: Acute Assessment and Plan: Cardona exchange in the ED (6) Status post insertion of percutaneous endoscopic gastrostomy (PEG) tube: Code(s): Z93.1 - Gastrostomy status Status: Acute Assessment and Plan: Continue tube feedings Subjective Date/time seen: 11/14/23 14:26 Interval history: Patient presented to the ED due to coffee ground emesis. patient has not had any episodes of this while in the hospital. After speaking to my nurse she said that she aspirated patient's G-tube and there was no signs of any bleeding. CT of the abdomen pelvis showing possible gastritis. Patient is nonverbal and unable to participate in his care. Exam Narrative: GENERAL: Comfortable, no acute distress EYES: EOM intact b/l RESPIRATORY: clear to auscultation CARDIO: RRR GI: soft, nontender, bowel sounds present , G-tube in place, colostomy in place SKIN: no rashes EXTREMITIES: no edema, redness or tenderness Objective Data Vital Signs Vital Signs: Vital Signs - 24 hr 11/13/23 17:42 11/13/23 19:10 11/13/23 22:32 Temperature 98.9 F 97.5 F L Pulse Rate 109 H 93 104 H Respiratory Rate 15 13 12 Blood Pressure 112/64 110/64 109/86 Pulse Oximetry 98 98 93 Oxygen Delivery 11/13/23 23:20 11/13/23 22:48 11/14/23 06:00 Temperature 99.6 F 99.2 F Pulse Rate 105 H 106 H Respiratory Rate 20 16 Blood Pressure 133/77 112/91 H Pulse Oximetry 98 96 Oxygen Delivery Room Air Intake/Output Intake/Output: Intake & Output 11/11/23 11/12/23 11/13/23 11/14/23 23:59 23:59 23:59 23:59 Intake Total 2049 1999 Output Total 1000 Balance 2049 1000 Meds/Results Medications: Active Medications Generic Name Dose Route Start Last Admin Trade Name Freq PRN Reason Stop Dose Admin Acetaminophen 650 mg 11/13/23 16:58 Acetaminophen 650 Mg Suppository RECTAL Q6H PRN Mild Pain (1-3) or Fever Enoxaparin Sodium 40 mg 11/14/23 09:00 11/14/23 09:38 Enoxaparin 40 Mg/0.4 Ml Syringe SUB-Q Not Given DAILY FARZAD Famotidine 20 mg 11/14/23 09:00 11/14/23 09:38 Famotidine 20 Mg Tablet FEED TUBE 20 mg Q12HR FARZAD Administration Ceftriaxone Sodium 1 gm in 50 mls @ 100 mls/hr 11/14/23 12:00 11/14/23 11:48 Rocephin 1 Gm/Ns 50 Ml IVPB 100 mls/hr Q24H FARZAD Administration Sodium Chloride 1,000 mls @ 125 mls/hr 11/13/23 17:00 11/14/23 09:38 Normal Saline Iv IV CONT 125 mls/hr .Q8H FARZAD Administration Ondansetron HCl 4 mg 11/13/23 16:58 Ondansetron Inj 4 Mg/2 Ml Vial IV PUSH Q4H PRN Nausea Pantoprazole Sodium 40 mg 11/13/23 17:00 11/14/23 09:38 Pantoprazole Sodium Iv 40 Mg Vial IV PUSH 40 mg BID FARZAD Administration Radiology Results: ITS Impressions Abdomen/Pelvis CT 11/13/23 15:32 IMPRESSION: 1. Mild wall thickening of the stomach which could re
[2023-11-14 22:00] VITALS: BP 142/94; PULSE 96; RESP 14; TEMP 36.3; O2SAT 96
--- NOTE | 2023-11-15 04:20 | PC.NURSE ---
pt has a chronic lopez, was replaced in the ER, time of placement unknown
[2023-11-15] MEDS: SODIUM CHLORIDE 0.9% IV 1,000 ML 125 ML IV CONT ×3 (04:54→20:45)
[2023-11-15 05:23] VITALS: BP 138/89; PULSE 96; RESP 12; TEMP 36.9; O2SAT 100
[2023-11-15 08:16] LABS: Basophils Percent Auto 0.3 % (0.2-1.2); Eosinophils Absolute Auto 0.2 K/mm3 (0-0.3); Eosinophils Percent Auto 2.1 % (0-4.4); Hemoglobin 14.3 g/dL (14.0-18.0); Immature Granulocyte Absolute 0.03 K/mm3 (0.00-0.031); Immature Granulocyte Percent A 0.3 % (0-0.5); Immature Platelet Fraction Pct 2.1 % (0.9-11.2); Lymphocytes Absolute Auto 2.11 K/mm3 (0.9-3.2); Lymphocytes Percent Auto 22.8 % (18.3-44.2); Mean Corpuscular HGB Conc 30.4 g/dl (32-36); Mean Corpuscular Hemoglobin 28.1 pg (26-34); Mean Corpuscular Volume 92.5 fl (80-100); Monocytes Absolute Auto 0.8 K/mm3 (0.1-0.6); Monocytes Percent Auto 8.2 % (2.6-8.5); Neutrophils Absolute Auto 6.1 K/mm3 (1.3-6.7); Neutrophils Percent Auto 66.3 % (45.5-73.1); Platelet Count Result 250 k/mm3 (150-375); Red Blood Count 5.08 M/mm3 (4.6-6.20); Red Cell Distribution Width 13.8 % (11.5-14.5); White Blood Count 9.2 K/mm3 (4.5-10.0)
[2023-11-15] MEDS: FAMOTIDINE 20 MG TABLET FEED TUBE ×2 (09:01→20:42)
[2023-11-15] MEDS: PANTOPRAZOLE SODIUM IV 40 MG VIAL IV PUSH ×2 (09:01→16:27)
--- NOTE | 2023-11-15 10:29 | PM.IMPN ---
Progress Note: A&P Assessment and Plan (1) Acute UTI: Code(s): N39.0 - Urinary tract infection, site not specified Status: Acute Assessment and Plan: Urine appears infected with turbid appearance, 2+ blood, 2+ LE, 21-50 rbc's, greater than 100 wbc's and 2+ bacteria. Patient has chronic indwelling Cardona catheter and has been hospitalized multiple times for suspected UTI. Patient's previous urine cultures have all come up clear. Patient started on Rocephin. Urine cultures came back with mixed genital nayeli. Gram-positive cocci in cluster positive in 1 blood culture bottle. Possible contaminant. Will continue to watch. (2) Gastritis: Code(s): K29.70 - Gastritis, unspecified, without bleeding Status: Acute Assessment and Plan: CT scan showing gastritis. Famotidine 20 mg p.o. b.i.d. (3) Autism: Code(s): F84.0 - Autistic disorder Status: Chronic Assessment and Plan: Supportive care (4) Colostomy care: Code(s): Z43.3 - Encounter for attention to colostomy Status: Acute Assessment and Plan: Colostomy care (5) Chronic indwelling Cardona catheter: Code(s): Z97.8 - Presence of other specified devices Status: Acute Assessment and Plan: Cardona exchange in the ED (6) Status post insertion of percutaneous endoscopic gastrostomy (PEG) tube: Code(s): Z93.1 - Gastrostomy status Status: Acute Assessment and Plan: Continue tube feedings Subjective Date/time seen: 11/15/23 10:29 Interval history: patient nonverbal and history unable to be obtained. Plan is to discharge patient home on p.o. antibiotics. Will wait for blood cultures to come back. Blood culture with gram-positive cocci is likely a contaminant. If other bottle remains negative tomorrow will discharge home and monitor further growth and blood cultures. Exam Narrative: GENERAL: Comfortable, no acute distress EYES: EOM intact b/l RESPIRATORY: clear to auscultation CARDIO: RRR GI: soft, nontender, bowel sounds present , G-tube in place, colostomy in place SKIN: no rashes EXTREMITIES: no edema, redness or tenderness Objective Data Vital Signs Vital Signs: Vital Signs - 24 hr 11/14/23 14:00 11/14/23 22:00 11/15/23 05:23 Temperature 98.2 F 97.4 F L 98.5 F Pulse Rate 100 96 96 Respiratory Rate 14 14 12 Blood Pressure 127/82 142/94 H 138/89 Pulse Oximetry 96 96 100 Oxygen Delivery 11/15/23 08:00 Temperature Pulse Rate Respiratory Rate Blood Pressure Pulse Oximetry Oxygen Delivery Room Air Intake/Output Intake/Output: Intake & Output 11/12/23 11/13/23 11/14/23 11/15/23 23:59 23:59 23:59 23:59 Intake Total 2050 3285 1370 Output Total 2800 2785 Balance 2049 485 1415 Meds/Results Medications: Active Medications Generic Name Dose Route Start Last Admin Trade Name Freq PRN Reason Stop Dose Admin Acetaminophen 650 mg 11/13/23 16:58 Acetaminophen 650 Mg Suppository RECTAL Q6H PRN Mild Pain (1-3) or Fever Enoxaparin Sodium 40 mg 11/14/23 09:00 11/15/23 08:59 Enoxaparin 40 Mg/0.4 Ml Syringe SUB-Q Not Given DAILY FARZAD Famotidine 20 mg 11/14/23 09:00 11/15/23 09:01 Famotidine 20 Mg Tablet FEED TUBE 20 mg Q12HR FARZAD Administration Ceftriaxone Sodium 1 gm in 50 mls @ 100 mls/hr 11/14/23 12:00 11/14/23 12:18 Rocephin 1 Gm/Ns 50 Ml IVPB Infused Q24H FARZAD Infusion Sodium Chloride 1,000 mls @ 125 mls/hr 11/13/23 17:00 11/15/23 04:54 Normal Saline Iv IV CONT 125 mls/hr .Q8H FARZAD Administration Ondansetron HCl 4 mg 11/13/23 16:58 Ondansetron Inj 4 Mg/2 Ml Vial IV PUSH Q4H PRN Nausea Pantoprazole Sodium 40 mg 11/13/23 17:00 11/15/23 09:01 Pantoprazole Sodium Iv 40 Mg Vial IV PUSH 40 mg BID FARZAD Administration Radiology Results: ITS Impressions Abdomen/Pelvis CT 11/13/23 15:32 IMPRESSION:
[2023-11-15 13:01] LABS: Alanine Aminotransferase 17 U/L (6-50); Albumin Level 3.7 g/dL (3.5-5.1); Alkaline Phosphatase 77 U/L (38-126); Anion Gap 9 mmol/L (8-16); Aspartate Amino Transferase 26 U/L (17-59); Bilirubin,Total 0.5 mg/dL (0.2-1.3); Blood Urea Nitrogen 5 mg/dL (9-20); Calcium 8.7 mg/dL (8.4-10.2); Carbon Dioxide 22 mmol/L (22-30); Chloride 109 mmol/L (98-107); Estimated CRCL calculation 86 ml/min; Estimated Glomerular Filt Rate > 60; Glucose 93 mg/dL (65-110); Potassium 3.7 mmol/L (3.4-5.0); Sodium 140 mmol/L (137-145)
[2023-11-15 14:00] VITALS: BP 132/92; PULSE 105; RESP 14; TEMP 36.7; O2SAT 96
[2023-11-15 21:36] VITALS: BP 142/93; PULSE 98; RESP 14; TEMP 36.6; O2SAT 96
[2023-11-16] MEDS: SODIUM CHLORIDE 0.9% IV 1,000 ML 125 ML IV CONT (05:27)
[2023-11-16 06:00] VITALS: BP 132/84; PULSE 80; RESP 14; TEMP 36.6; O2SAT 96
[2023-11-16] MEDS: PANTOPRAZOLE SODIUM IV 40 MG VIAL IV PUSH (10:07)
[2023-11-16] MEDS: ENOXAPARIN 40 MG/0.4 ML SYRINGE SUB-Q (10:11)
[2023-11-16] MEDS: FAMOTIDINE 20 MG TABLET FEED TUBE (11:01)
--- NOTE | 2023-11-16 12:06 | PM.DS ---
DS: Admitting Diagnosis Discharge Date 11/16/23 Admitting Diagnosis Nausea vomiting DS: Discharge Diagnosis Discharge Diagnosis (1) Acute UTI: Code(s): N39.0 - Urinary tract infection, site not specified Status: Acute (2) Gastritis: Code(s): K29.70 - Gastritis, unspecified, without bleeding Status: Acute (3) Autism: Code(s): F84.0 - Autistic disorder Status: Chronic (4) Colostomy care: Code(s): Z43.3 - Encounter for attention to colostomy Status: Acute (5) Chronic indwelling Cardona catheter: Code(s): Z97.8 - Presence of other specified devices Status: Acute (6) Status post insertion of percutaneous endoscopic gastrostomy (PEG) tube: Code(s): Z93.1 - Gastrostomy status Status: Acute DS: Summary Hospital Course Hospital Course: This is a 43-year-old male who is nonverbal with past medical history of autism with PEG tube, colostomy and chronic indwelling Cardona catheter the presented to the ED on 11/13/2023 after noted to of had coffee-ground emesis. Preliminary workup revealing gastritis and diffuse wall thickening of the urinary bladder. Patient was started on mode meeting 20 mg b.i.d.. UA appeared infectious and patient was started on Rocephin. Urine culture came back negative for acute infection. Blood culture came back positive with Staph epidermis in 1 bottle and after 72 hours no further growth was noted in 2nd bottle. this is likely contaminant. Patient did have elevated white count upon admission but next day white count was within normal limits. When inspecting patient's previous white blood cell counts it does appear that he could have chronic white blood cell count elevation. Patient could not receive labs every day due to difficulty with drawing them. Patient became very combative. Patient's Cardona catheter was exchanged in the ED. His labs and vital signs did stabilize. Patient is medically clear for discharge at this time. Time Spent with Patient Time attestation: Total time spent providing and/or coordinating discharge services: Exam Narrative: GENERAL: Comfortable, no acute distress EYES: EOM intact b/l RESPIRATORY: clear to auscultation CARDIO: RRR GI: soft, nontender, bowel sounds present , G-tube in place, colostomy in place SKIN: no rashes EXTREMITIES: no edema, redness or tenderness DS: Data Data Completed and Pending Labs on day of discharge: Labs from last 24 hours 11/15/23 12:20 Sodium 140 Potassium 3.7 Chloride 109 H Carbon Dioxide 22 Anion Gap 9 BUN 5 L D Creatinine 0.60 L Estim Creat Clear Calc 86 Estimated GFR > 60 Glucose 93 Calcium 8.7 Total Bilirubin 0.5 AST 26 ALT 17 Alkaline Phosphatase 77 Total Protein 8.0 Albumin 3.7 Preliminary micro results at discharge 11/13/23 17:07 Blood Culture - Preliminary Blood Staphylococcus epidermidis 11/13/23 17:02 Blood Culture - Preliminary Blood Discharge Plan Discharge Attending physician on discharge: Almas Daly Discharging Clinician: Shayy Sanchez Patient Disposition: NH Half-Way/Asst Living Activity: as tolerated Diet: tube feeding Discharge Instructions: Exchange Cardona catheter every 4-6 weeks. Will send home on 3 days of cefdinir. Discharge disposition: Take medications as prescribed Monitor blood pressures Avoid social areas, you wear a mask when in social settings Encouraged to continue with yearly vaccinations Return to the emergency department if he developed sudden shortness of breath, chest pain, nausea, vomiting, upset stomach or intractable diarrhea Return to the emergency department if you develop fever greater than 100.4 Follow-up with the primary care physician within 1-2 weeks Thank you for [facility] for your healthcare needs Patient Instructions: Antibiotic Form Stand Alone Forms: General Discharge Information Follow-up/Refe
[2023-11-16 14:01] LABS: SARS-CoV-2 RNA PCR Negative (Negative)
== END 2023-11-16 16:15 | DRG 241 ==
LOC: ANHED 16:56 → ANH3MEDSUR 22:35
PROVIDERS: Admitting Provider General Practice; Emergency Provider Emergency Medicine; PCP Hospitalist; Visit Provider Internal Medicine Critical Care Medicine
DX: K29.70 Gastritis, unspecified, without bleeding (principal); F84.0 Autistic disorder; Z87.440 Personal history of urinary (tract) infections; Z11.52 Encounter for screening for COVID-19; Z93.1 Gastrostomy status; Z93.3 Colostomy status; E44.0 Moderate protein-calorie malnutrition; Z68.1 Body mass index [BMI] 19.9 or less, adult
CPT/HCPCS: 36415; 74177; 80053; 81001; 83605; 85025; 85055; 85610; 85730; 86850; 86900; 86901; 87040; 87086; 87088; 87147; 87181; 87186; 87635; 96361; 96365; 96375; 99285; A9270; C9113; G0378; G0379; J0696; J1650; J7030; Q9967

== ENCOUNTER 2024-01-09 12:32 | Inpatient (IN) | payer OTHER, SELFPAY ==
[2024-01-09] VITALS (25 sets, daily range): BP systolic 103–147; BP diastolic 68–98; PULSE 90–148; RESP 14–24; TEMP 36.6–37.9; O2SAT 96–100; BMI 19.3
--- NOTE | ~2024-01-09 | CT_ITS ---
EXAMINATION: CT abdomen pelvis w con DATE: 01/09/2024 14:10 INDICATION: Nausea and vomiting TECHNIQUE: Computed tomography (CT) of the abdomen and pelvis was performed with 100 CC Omnipaque 350 intravenous contrast. Automated exposure control and iterative reconstruction technique were employe d. Exam dose: 634.97 mGy-cm total exam DLP. COMPARISON: 11/13/2023 CT abdomen pelvis FINDINGS: Rotation due to suboptimal patient positioning and motion. Prominent bullae of both lungs a re noted. Heart size is normal. No pericardial or pleural effusion. There are some atelectasis and/or consolida tion at the lung bases. Moderately large sliding hiatal hernia. Normal splenic size. The liver is not completely imaged due to positioning and motion artifact. No ob vious hepatic lesion is evident. No intrahepatic or extra hepatic bile duct dilatation or pancreatic duct dilatation is evident. No pancreatic mass lesion or calcification. Normal morphology of the adrenal glands. No urinary tract calculus or hydroureteronephrosis. Approximately 1.3 cm upper pole left renal cyst. 1.2 cm lower pole left renal cyst. There is a Cardona catheter within the urinary bladder. The bladder wall is very prominently thickened throughout, which may be due to neurogenic bladder, cystitis and/or prostatomegaly/bladder outlet obs truction. Prostatomegaly. Normal caliber of the abdominal aorta. No intraperitoneal or retroperitoneal or pelvic mass lesion or adenopathy or ascites. Gastrostomy tube is noted within the gastric lumen. Left lower quadrant colostomy. No bowel obstruction or intraperitoneal free air is detected. No suspicious osteolytic or osteoblastic lesions are noted. IMPRESSION: Limited examination due to positioning and patient motion No bowel obstruction is evident; left lower quadrant colostomy Cardona catheter within urinary bladder There are prominent diffuse thickening of the urinary bladder wall, which may be due to any combinati on of neurogenic bladder, cystitis, prostatomegaly/bladder outlet obstruction Reviewed, dictated and finalized at [facility]. Reviewed, dictated and finalized at location B. VE TAILOR IMPRESSION: Limited examination due to positioning and patient motion No bowel obstruction is evident; left lower quadrant colostomy Cardona catheter within urinary bladder There are prominent diffuse thickening of the urinary bladder wall, which may b e due to any combination of neurogenic bladder, cystitis, prostatomegaly/bladde r outlet obstruction
--- NOTE | ~2024-01-09 | US_ITS ---
EXAMINATION: US abdomen limited DATE: 01/09/2024 17:21 INDICATION: Sepsis, nausea, vomiting and abnormal liver function tests. TECHNIQUE: Multiple grayscale and Doppler ultrasound images of the abdomen were obtained. COMPARISON: CT dated 01/09/2024 FINDINGS: Region of the pancreas is obscured by shadowing bowel gas. Liver has normal echogenicity and contour, with a smooth surface. No liver lesion identified. No intrahepatic biliary duct dilation suspected. Portal venous flow was seen in the hepatopetal, normal direction and has normal Doppler waveform. The gallbladder is incompletely distended along with some shadowing from the or anterior ribs limits jeffery luation. There appears to be some hypoechoic material in the dependent gallbladder. No shadowing chol elithiasis. Normal common bile duct diameter of 1 mm. Per discussion with the waste collection driver a Gill si gn was unable to be reliably assessed as the patient was continually guarding throughout the examinat ion at all locations. IMPRESSION: 1. Small amount of non shadowing hypoechoic material along the dependent wall of the nondilated gallb ladder this likely represents sludge although differential would include a polyp or focal gallbladder wall thickening. Recommend follow-up ultrasound or MRCP when patient's condition improves is more co operative with imaging. 2. No cholelithiasis or intra or extrahepatic biliary ductal dilation. Reviewed, dictated and finalized at location A. RAM MANAGEMENT PROFESSIONAL IMPRESSION: 1. Small amount of non shadowing hypoechoic material along the dependent wall o f the nondilated gallbladder this likely represents sludge although differentia l would include a polyp or focal gallbladder wall thickening. Recommend follow- up ultrasound or MRCP when patient's condition improves is more cooperative wit h imaging. 2. No cholelithiasis or intra or extrahepatic biliary ductal dilation.
--- NOTE | ~2024-01-09 | XR_ITS ---
XR chest 1V portable DATE: 01/09/2024 14:56 INDICATION: Sepsis workup TECHNIQUE: Portable upright AP chest on January 09, 2024 at 1452 hours COMPARISON: 09/22/2023 AP chest 11/01/2022 CT chest abdomen pelvis FINDINGS: There is chronic rightward shift of the heart, stable since 09/05/2023. Bilateral bullous c hanges demonstrated to better advantage on 11/01/2022 CT thorax. No active infiltrate or consolidation, pleural effusion or pulmonary vascular congestion or pneumotho rax is detected. Diffuse osteopenia. Bilateral renal excretion of contrast material is noted. IMPRESSION: No active cardiopulmonary disease Reviewed, dictated and finalized at location B. UTE COORDINATOR
[2024-01-09 13:06] LABS: Hematocrit 50.2 % (42.0-52.0); Hemoglobin 15.6 g/dL (14.0-18.0); Mean Corpuscular HGB Conc 31.1 g/dl (32-36); Mean Corpuscular Volume 86.9 fl (80-100); Mean Platelet Volume 9.5 fl (7.4-10.4); Platelet Count Result 397 k/mm3 (150-375); Red Blood Count 5.78 M/mm3 (4.6-6.20); Red Cell Distribution Width 14.1 % (11.5-14.5); White Blood Count 38.6 K/mm3 (4.5-10.0)
[2024-01-09 13:07] LABS: Alanine Aminotransferase 142 U/L (6-50); Albumin Level 4.7 g/dL (3.5-5.1); Alkaline Phosphatase 185 U/L (38-126); Anion Gap 18 mmol/L (8-16); Aspartate Amino Transferase 51 U/L (17-59); Bilirubin,Total 1.4 mg/dL (0.2-1.3); Blood Urea Nitrogen 23 mg/dL (9-20); Calcium 10.3 mg/dL (8.4-10.2); Carbon Dioxide 29 mmol/L (22-30); Chloride 98 mmol/L (98-107); Estimated Glomerular Filt Rate > 60; Glucose 150 mg/dL (65-110); Lipase 58 U/L (23-300); Potassium 4.3 mmol/L (3.4-5.0); Sodium 145 mmol/L (137-145)
--- NOTE | 2024-01-09 13:14 | ECG_ITS ---
Measurements Intervals [place] Rate: 149 P: MD: 0 QRS: 61 QRSD: 76 T: 78 QT: 271 QTc: 427 Interpretive Statements SINUS TACHYCARDIA ABNORMAL RHYTHM ECG COMPARED TO ECG 09/05/2023 12:30:36 HEART RATE IS INCREASED Electronically Signed On 01-09-2024 15:28:40 SCRAP CUTTER by Dread Correa M.D.
--- NOTE | 2024-01-09 13:15 | ED.NAVMDI ---
HPI - Nausea/Vomiting/Diarrhea General Chief complaint: Nausea/Vomiting/Diarrhea <Sayda Garcia PA-C - Last Filed: 01/09/24 17:36> Stated complaint: N/V <Sayda Garcia PA-C - Last Filed: 01/09/24 17:36> Time Seen by Provider: 01/09/24 12:41 <Sayda Garcia PA-C - Last Filed: 01/09/24 17:36> Source: patient, RN notes reviewed and old records reviewed <Sayda Garcia PA-C - Last Filed: 01/09/24 17:36> Mode of arrival: EMS <Sayda Garcia PA-C - Last Filed: 01/09/24 17:36> Limitations: language barrier and clinical condition <Sayda Garcia PA-C - Last Filed: 01/09/24 17:36> History of Present Illness HPI Narrative: Patient is a 43 y/o male, with pmh of developmental delay and autism/nonverbal status, G-tube, chronic indwelling Cardona catheter, colostomy, who presents to the ED via EMS from [facility] with report of vomiting. [facility] The emesis was described as bile like and green in color. He was then sent here for further evaluation. Patient unable to provide any information. History of frequent UTIs per records. <Sayda Garcia PA-C - Last Filed: 01/09/24 17:36> Related Data Allergies/Adverse reactions: Allergies Allergy/AdvReac Type Severity Reaction Status Date / Time No Known Allergies Allergy Verified 09/05/23 12:24 <Sayda Garcia PA-C - Last Filed: 01/09/24 17:36> Review of Systems Review of Systems: ROS unobtainable: Yes unobtainable due to medical condition <Sayda Garcia PA-C - Last Filed: 01/09/24 17:36> PMFSH Past Medical History Medical History: Medical History Autism Cognitive developmental delay <Sayda Garcia PA-C - Last Filed: 01/09/24 17:36> Surgical History Surgical History: Surgical History History of exploratory laparotomy (09/2022) Exploratory laparotomy with sigmoid colon resection and colostomy for ischemic bowel. History of gastrostomy tube placement <Sayda Garcia PA-C - Last Filed: 01/09/24 17:36> Family History Family History: Family History Other Family history unknown <Syada Garcia PA-C - Last Filed: 01/09/24 17:36> Social History Social History: Social History Social History: Surrogate medical decision maker: Man Swanson, father or Samia Hale, sister. Code status: Full code. Smoking status: Never smoker Second hand tobacco smoke exposure: No Alcohol intake: never Substance use: never Additional living arrangements comments: Resident at [facility]. Spiritual care concerns: No <Sayda Garcia PA-C - Last Filed: 01/09/24 17:36> Exam Narrative: GENERAL: Chronically ill, thin, non-toxic, in no acute distress. HEAD: Normocephalic, atraumatic. RESPIRATORY: Airway patent, respirations nonlabored, tachypneic. Clear to auscultation bilaterally, no rales, rhonchi, wheezing. CARDIOVASCULAR: Tachycardic with regular rhythm without murmurs, rubs, or gallops. ABDOMINAL: Soft, unable to appreciate any tenderness or abdomen, nondistended. G-tube in place. Colostomy in place. MUSCULOSKELETAL: Contractures of extremities. SKIN: Warm, dry, normal color. NEURO: Alert. Nonverbal. Does not follow commands. No ataxic movements. PSYCHIATRIC: Nonverbal <Sayda Garcia PA-C - Last Filed: 01/09/24 17:36> Course CEMETERY MANAGER/PA Physician Supervision This visit was performed by both a physician and an APC. I performed all aspects of the MDM as documented. <Shahid Gutierrez MD - Last Filed: 01/09/24 19:46> Vital Signs Vital signs: Vital Signs Temperature 100
[2024-01-09 13:33] LABS: Band Neutrophils Percent 1 % (0-6); Lymphocytes Absolute Manual 1.15 K/mm3 (1.1-4.5); Monocytes Absolute Manual 1.54 K/mm3 (0.1-0.90); Monocytes Percent Manual 4 % (3-9); Neutrophils Absolute Manual 35.89 K/mm3 (1.3-6.7); Neutrophils Percent Manual 92 % (46-73); Schistocytes None Seen (NORMAL); Total Cells Counted 100
[2024-01-09] MEDS: ONDANSETRON INJ 4 MG/2 ML VIAL IV PUSH (13:44)
[2024-01-09] MEDS: SODIUM CHLORIDE 0.9% IV 1,000 ML 999 ML IV CONT ×2 (13:46→13:47)
[2024-01-09] MEDS: ACETAMINOPHEN 650 MG SUPPOSITORY RECTAL (13:47)
[2024-01-09 14:48] LABS: Appearance Urine Cloudy (Clear); Bacteria Urine Rare /hpf; Bilirubin Urine Negative (Negative); Blood Urine 3+ (Negative); Color Urine Yellow (Yellow); Glucose Urine UA Negative (Negative); Ketones Urine Trace mg/dL (Negative); Leukocyte Esterase Ur 1+ LEU/UL (Negative); Need Manual Microscopic Reviewed; Nitrate Urine Negative (Negative); Protein Urine 2+ mg/dL (Negative); RBC Urine >100 /hpf (0-2); Squamous Epithelial Cell Urine None seen /hpf (Few); Urobilinogen Urine 0.2 mg/dL (<2.0); WBC Urine >100 /hpf
[2024-01-09 14:54] LABS: Add Urine Microscopic? YES
[2024-01-09 15:05] LABS: Influenza A QL RT-PCR Negative (Negative); Influenza B QL RT-PCR Negative (Negative); RSV RNA, RT-PCR Negative (Negative); SARS-CoV-2 RNA PCR Negative (Negative)
[2024-01-09 15:35] LABS: Magnesium 2.9 mg/dL (1.6-2.3)
[2024-01-09 15:47] LABS: Troponin I < 0.012 ng/mL (0.000-0.034)
[2024-01-09 16:11] LABS: Lactic Acid Reflex 2.5 mmol/L (0.7-2.0)
[2024-01-09 16:18] LABS: INR 1.2; Prothrombin Time 15.8 Seconds (11.1-14.7)
[2024-01-09 16:19] LABS: Partial Thromboplastin Time 37.4 SECONDS (22.3-36.8)
--- NOTE | 2024-01-09 17:01 | PM.IMHP ---
H&P: HPI History of Present Illness Date/Time: 01/09/24 18:45 Chief Complaint: Vomiting. Narrative: This is a 43-year-old male with developmental delay and autism who presented to the emergency department via EMS from [facility] for evaluation of vomiting. He is unable to provide any history and thus all of the following is obtained via a review of his EMR. The patient is known to myself and the hospitalist service from previous admissions. According to documentation, he was brought in today for evaluation of dark green emesis. In the ED he was hesitant to allow examination, which was limited. He does not answer questions or follow commands. He had a low-grade fever on arrival and has been tachypneic since presentation. Blood pressures have remained stable. Labs were significant for WBC count of 30.6, BUN 23, lactic acid 2.5, calcium 10.3, total bilirubin 1.4, ALT 142, alkaline phosphatase 185, total protein 11.0. Urine was cloudy with 2+ protein, trace ketones, 3+ blood, 1+ leukocyte esterase, greater than 100 RBC and WBC, and rare bacteria were noted on microscopy. He was negative for influenza, RSV, and COVID. Chest x-ray showed no acute findings. CT of the abdomen pelvis was limited due to positioning and patient motion. Prominent, diffuse thickening of the urinary bladder wall was noted. Review of Systems Review of Systems: Unable to obtain given clinical condition. [facility] Past Medical History Medical History Autism Cognitive developmental delay Surgical History Surgical History History of exploratory laparotomy (09/2022) Exploratory laparotomy with sigmoid colon resection and colostomy for ischemic bowel. History of gastrostomy tube placement Family History Family History Other Family history unknown Social History Social History Social History: Surrogate medical decision maker: Man Swanson, father or Samia Hale, sister. Code status: Full code. Smoking status: Never smoker Second hand tobacco smoke exposure: No Alcohol intake: never Substance use: never Additional living arrangements comments: Resident at [facility]. Spiritual care concerns: No Meds Home Medications and Allergies Home Medications Medication Instructions Recorded Confirmed Type famotidine 20 mg tablet 20 mg feeding tube Q12HR 30 days 11/08/22 11/13/23 Rx #60 tabs cefdinir 300 mg capsule 300 mg PO Q12H #6 caps 11/16/23 Rx ondansetron HCl 4 mg tablet 4 mg PO Q6H PRN nausea and 11/16/23 Rx vomiting #60 tabs Allergies Allergy/AdvReac Type Severity Reaction Status Date / Time No Known Allergies Allergy Verified 09/05/23 12:24 Vital Signs Vital Signs - 24 hr 01/09/24 13:00 01/09/24 14:10 01/09/24 14:19 Temperature 100.3 F H Pulse Rate 148 H 122 H 122 H Respiratory Rate 24 H 20 20 Blood Pressure 120/82 144/98 H 120/78 Pulse Oximetry 96 100 98 Oxygen Delivery Room Air 01/09/24 15:03 01/09/24 15:29 01/09/24 15:46 Temperature 100.1 F H 100.0 F H Pulse Rate 117 H 118 H 120 H Respiratory Rate 20 20 16 Blood Pressure 122/86 118/96 H 147/81 H Pulse Oximetry 97 98 97 Oxygen Delivery 01/09/24 16:31 Temperature Pulse Rate 116 H Respiratory Rate 20 Blood Pressure 119/70 Pulse Oximetry 97 Oxygen Delivery Exam Narrative: General: Moderately ill-appearing male in the semi-Bob position in bed. He is contracted. Weight: 45 kg. BMI: 19.4. HEENT:??PERRL, EOMI. Sclera anicteric. Oral exam not performed as he would not open his mouth. Neck:??Supple. Respiratory:?Lungs are clear to auscultation bilaterally. Cardiovascular:?Tachycardic with normal S1-S2. Gastrointestinal:??Abdomen is soft it does not appear tender or distended.
[2024-01-09] MEDS: SODIUM CHLORIDE 0.9% IV 1,000 ML 100 ML IV CONT (17:35)
[2024-01-09 18:59] LABS: Reflex Lactic Acid Yes or No Add Lactic
--- NOTE | 2024-01-09 23:12 | ADMGEN ---
This patient, Ricky Swanson, was admitted to Medical Room 253-01. Patient/family oriented to hospital policies and general routines including ID bracelet, bed and alarms, visiting hours, pain management, procedures, bathroom and other care routines, personal items, smoking policy, room service/diet, and visiting hours. Information on how to activate the Rapid Response Team has been discussed. Patient/Family are encouraged to report perceived risks to care and to ask questions if they do not understand what they are told or what they should do.
[2024-01-10] VITALS (10 sets, daily range): BP systolic 107–137; BP diastolic 61–69; PULSE 97–119; RESP 16–18; TEMP 36.6–37.1; O2SAT 93–95
--- NOTE | 2024-01-10 05:07 | PC.NURSE ---
PT UNCOMFORTABLE BEING TOUCHED. ATTEMPTED TO HELP LAB GET BLOOD FROM PT. PT CONTINUED TO FIGHT AND SQUIRM HIS HANDS AWAY FROM STAFF. PT ALSO DIGGING NAILS INTO ANYONE TRYING TO TOUCH HIM. NURSES AND PHLEBOTOMY IN ED ALSO HAD THIS PROBLEM WITH THE PT SO LABS WERE CANCELED. MORNING LABS WERE ALSO NOT ABLE TO BE DRAWN.
[2024-01-10] MEDS: polyethylene glycoL 3350 17 GM POWD.PACK FEED TUBE (09:19)
[2024-01-10] MEDS: ENOXAPARIN 40 MG/0.4 ML SYRINGE SUB-Q (09:19)
[2024-01-10] MEDS: FAMOTIDINE 20 MG TABLET FEED TUBE ×2 (09:19→20:01)
[2024-01-10] MEDS: SENNA/DOCUSATE SODIUM TABLET 1 TAB PO ×2 (09:19→18:36)
--- NOTE | 2024-01-10 10:14 | PM.IMPN ---
Progress Note: A&P Assessment and Plan (1) Sepsis: Code(s): A41.9 - Sepsis, unspecified organism Status: Acute Assessment and Plan: - sepsis criteria with fever, tachycardia, leukocytosis, and lactic acidosis, suspect source of infection could be urinary tract. Lactic acid elevated 2.5 negative for influenza, RSV, and COVID. Chest x-ray showed no acute findings. CT of the abdomen pelvis was limited due to positioning and patient motion. Prominent, diffuse thickening of the urinary bladder wall was noted. - repeat Lactic acid per protocol -continue fluid resuscitation -initiate Zosyn 3.375 (2) Dehydration: Code(s): E86.0 - Dehydration Status: Acute Assessment and Plan: -continue fluid resuscitation -LR @100ML/Hr -recheck CBC, CMP in a.m. -monitor/record I&O (3) Abnormal urinalysis: Code(s): R82.90 - Unspecified abnormal findings in urine Status: Acute Assessment and Plan: See UTI (4) Vomiting: Code(s): R11.10 - Vomiting, unspecified Status: Acute Assessment and Plan: -continue fluid resuscitation -initiate aspiration precautions -advance diet as tolerated (5) Elevated LFTs: Code(s): R79.89 - Other specified abnormal findings of blood chemistry Status: Acute Assessment and Plan: ALT 142, alk phos 185 Abdomen ultrasound reveals: Small amount of non shadowing hypoechoic material along the dependent wall of the nondilated gallbladder this likely represents sludge although differential would include a polyp or focal gallbladder wall thickening. Recommend follow-up ultrasound or MRCP when patient's condition improves is more cooperative with imaging. 2. No cholelithiasis or intra or extrahepatic biliary ductal dilation. (6) UTI (urinary tract infection): Qualifiers: Encounter type: initial encounter Indwelling urinary catheter type: indwelling urethral catheter Urinary tract infection type: catheter-associated UTI Qualified Code(s): T83.511A - Infection and inflammatory reaction due to indwelling urethral catheter, initial encounter; N39.0 - Urinary tract infection, site not specified Code(s): N39.0 - Urinary tract infection, site not specified Status: Acute Assessment and Plan: -patient chronic indwelling Cardona catheter ?Urine was cloudy with 2+ protein, trace ketones, 3+ blood, 1+ leukocyte esterase, greater than 100 RBC and WBC, and rare bacteria were noted on microscopy. Urine culture pending -initiate Cardona catheter exchange (7) Lactic acidosis: Code(s): E87.20 - Acidosis, unspecified Status: Acute Assessment and Plan: -recheck labs (8) Autism: Code(s): F84.0 - Autistic disorder Status: Chronic Assessment and Plan: Patient is nonverbal, often does not allow for exam -initiate fall precaution -PT eval and treat (9) Chronic indwelling Cardona catheter: Code(s): Z97.8 - Presence of other specified devices Status: Acute (10) Leukocytosis: Code(s): D72.829 - Elevated white blood cell count, unspecified Status: Acute Assessment and Plan: chronic, last admission pt was found to have elevated WBC suspect secondary to urinary tract infection -repeat CBC, CMP in the a.m. Plan The patient presented to the emergency department from his care facility for evaluation of vomiting as per HPI Continue home medications: VTE Prophylaxis: Enoxaparin subQ DIET: Liquid Anticipated hospital stay: >2 days Code Status: Full Subjective Date/time seen: 01/10/24 10:14 Interval history: Patient unable to provide history Per chart review This is a 43-year-old male with developmental delay and autism who presented to the emergency department via EMS from [facility] for evaluation of vomiting. He is unable to provide any history and thus all of the following is obtained via a review of his EMR. The patient is
[2024-01-10 10:23] LABS: Hematocrit 42.6 % (42.0-52.0); Hemoglobin 12.7 g/dL (14.0-18.0); Mean Corpuscular HGB Conc 29.8 g/dl (32-36); Mean Corpuscular Hemoglobin 26.8 pg (26-34); Mean Corpuscular Volume 89.9 fl (80-100); Mean Platelet Volume 9.3 fl (7.4-10.4); Platelet Count Result 301 k/mm3 (150-375); Red Blood Count 4.74 M/mm3 (4.6-6.20); Red Cell Distribution Width 13.9 % (11.5-14.5); White Blood Count 30.5 K/mm3 (4.5-10.0)
[2024-01-10 10:34] LABS: Lactic Acid Reflex 3.1 mmol/L (0.7-2.0)
[2024-01-10 10:48] LABS: Anion Gap 10 mmol/L (8-16); Blood Urea Nitrogen 11 mg/dL (9-20); Calcium 8.5 mg/dL (8.4-10.2); Carbon Dioxide 24 mmol/L (22-30); Chloride 106 mmol/L (98-107); Estimated CRCL calculation 85 ml/min; Estimated Glomerular Filt Rate > 60; Glucose 134 mg/dL (65-110); Potassium 3.3 mmol/L (3.4-5.0); Sodium 140 mmol/L (137-145)
[2024-01-10] MEDS: SODIUM CHLORIDE 0.9% IV 1,000 ML 100 ML IV CONT (12:37)
[2024-01-10 13:21] LABS: Reflex Lactic Acid Yes or No Add Lactic
[2024-01-10 15:04] LABS: Lactic Acid 4.9 mmol/L (0.7-2.0)
--- NOTE | 2024-01-10 15:30 | PC.NURSE ---
Sample Dye Mixer reviewed and agrees with all assessment findings charted by student, Chris Bryant.
[2024-01-10] MEDS: PIPERACILLN/TAZ 3.375GM/NS50ML 3.375 GM/50 ML BAG IVPB ×2 (16:51→23:06)
[2024-01-10] MEDS: LACTATED RINGERS 1,000 ML 100 ML IV CONT (17:30)
[2024-01-10 21:13] LABS: Lactic Acid Reflex 3.7 mmol/L (0.7-2.0)
[2024-01-11] VITALS (10 sets, daily range): BP systolic 124–152; BP diastolic 74–82; PULSE 98–107; RESP 12–16; TEMP 36.6–36.7; O2SAT 92–94
[2024-01-11] MEDS: LACTATED RINGERS 1,000 ML 100 ML IV CONT ×2 (03:26→16:17)
[2024-01-11] MEDS: PIPERACILLN/TAZ 3.375GM/NS50ML 3.375 GM/50 ML BAG IVPB ×4 (05:06→23:13)
[2024-01-11 08:30] LABS: Basophils Absolute Auto 0.1 K/mm3 (0.0-0.1); Basophils Percent Auto 0.5 % (0.2-1.2); Eosinophils Absolute Auto 0.3 K/mm3 (0-0.3); Eosinophils Percent Auto 1.8 % (0-4.4); Hematocrit 41.8 % (42.0-52.0); Hemoglobin 12.7 g/dL (14.0-18.0); Immature Granulocyte Absolute 0.09 K/mm3 (0.00-0.031); Immature Granulocyte Percent A 0.5 % (0-0.5); Lymphocytes Absolute Auto 2.93 K/mm3 (0.9-3.2); Lymphocytes Percent Auto 15.9 % (18.3-44.2); Mean Corpuscular HGB Conc 30.4 g/dl (32-36); Mean Corpuscular Hemoglobin 27.4 pg (26-34); Mean Corpuscular Volume 90.1 fl (80-100); Mean Platelet Volume 9.2 fl (7.4-10.4); Monocytes Absolute Auto 1.4 K/mm3 (0.1-0.6); Monocytes Percent Auto 7.3 % (2.6-8.5); Neutrophils Absolute Auto 13.7 K/mm3 (1.3-6.7); Platelet Count Result 279 k/mm3 (150-375); Red Blood Count 4.64 M/mm3 (4.6-6.20); Red Cell Distribution Width 14.1 % (11.5-14.5); White Blood Count 18.5 K/mm3 (4.5-10.0)
[2024-01-11 08:41] LABS: Lactic Acid Reflex 1.7 mmol/L (0.7-2.0)
[2024-01-11 08:42] LABS: Alanine Aminotransferase 35 U/L (6-50); Albumin Level 3.6 g/dL (3.5-5.1); Alkaline Phosphatase 112 U/L (38-126); Anion Gap 5 mmol/L (8-16); Aspartate Amino Transferase 24 U/L (17-59); Bilirubin,Total 1.6 mg/dL (0.2-1.3); Blood Urea Nitrogen 4 mg/dL (9-20); Calcium 8.5 mg/dL (8.4-10.2); Carbon Dioxide 28 mmol/L (22-30); Chloride 105 mmol/L (98-107); Estimated CRCL calculation 86 ml/min; Estimated Glomerular Filt Rate > 60; Glucose 104 mg/dL (65-110); Potassium 3.7 mmol/L (3.4-5.0); Sodium 138 mmol/L (137-145)
[2024-01-11 09:29] LABS: Procalcitonin 0.3 ng/mL
[2024-01-11] MEDS: SENNA/DOCUSATE SODIUM TABLET 1 TAB PO ×2 (09:34→16:41)
[2024-01-11] MEDS: FAMOTIDINE 20 MG TABLET FEED TUBE ×2 (09:34→21:16)
[2024-01-11] MEDS: ENOXAPARIN 40 MG/0.4 ML SYRINGE SUB-Q (09:34)
[2024-01-11] MEDS: polyethylene glycoL 3350 17 GM POWD.PACK FEED TUBE (09:34)
[2024-01-11] MEDS: PANTOPRAZOLE SODIUM IV 40 MG VIAL IV PUSH ×2 (09:35→21:16)
--- NOTE | 2024-01-11 11:30 | PM.IMPN ---
Progress Note: A&P Assessment and Plan (1) Sepsis: Code(s): A41.9 - Sepsis, unspecified organism Status: Resolved Assessment and Plan: Lactic acid has normalized negative for influenza, RSV, and COVID. Chest x-ray showed no acute findings. CT of the abdomen pelvis was limited due to positioning and patient motion. Prominent, diffuse thickening of the urinary bladder wall was noted. -continue Zosyn 3.375 (2) Dehydration: Code(s): E86.0 - Dehydration Status: Resolved Assessment and Plan: -continue fluid resuscitation -LR @100ML/Hr -recheck CBC, CMP in a.m. -monitor/record I&O (3) Abnormal urinalysis: Code(s): R82.90 - Unspecified abnormal findings in urine Status: Acute Assessment and Plan: See UTI (4) Vomiting: Code(s): R11.10 - Vomiting, unspecified Status: Resolved Assessment and Plan: -continue fluid resuscitation -initiate aspiration precautions -advance diet as tolerated (5) Elevated LFTs: Code(s): R79.89 - Other specified abnormal findings of blood chemistry Status: Acute Assessment and Plan: ALT 142, alk phos 185 Abdomen ultrasound reveals: Small amount of non shadowing hypoechoic material along the dependent wall of the nondilated gallbladder this likely represents sludge although differential would include a polyp or focal gallbladder wall thickening. Recommend follow-up ultrasound or MRCP when patient's condition improves is more cooperative with imaging. 2. No cholelithiasis or intra or extrahepatic biliary ductal dilation. (6) UTI (urinary tract infection): Qualifiers: Encounter type: initial encounter Indwelling urinary catheter type: indwelling urethral catheter Urinary tract infection type: catheter-associated UTI Qualified Code(s): T83.511A - Infection and inflammatory reaction due to indwelling urethral catheter, initial encounter; N39.0 - Urinary tract infection, site not specified Code(s): N39.0 - Urinary tract infection, site not specified Status: Acute Assessment and Plan: -patient chronic indwelling Cardona catheter ?Urine was cloudy with 2+ protein, trace ketones, 3+ blood, 1+ leukocyte esterase, greater than 100 RBC and WBC, and rare bacteria were noted on microscopy. Urine culture pending -continue Cardona care (7) Lactic acidosis: Code(s): E87.20 - Acidosis, unspecified Status: Resolved Assessment and Plan: -recheck labs (8) Autism: Code(s): F84.0 - Autistic disorder Status: Chronic Assessment and Plan: Patient is nonverbal, often does not allow for exam -initiate fall precaution -PT eval and treat (9) Chronic indwelling Cardona catheter: Code(s): Z97.8 - Presence of other specified devices Status: Acute (10) Leukocytosis: Code(s): D72.829 - Elevated white blood cell count, unspecified Status: Acute Assessment and Plan: WBC initially 38.6 on arrival, now today WBC is 18.5 chronic, last admission pt was found to have elevated WBC suspect secondary to urinary tract infection -repeat CBC, CMP in the a.m. Plan Continue home medications: VTE Prophylaxis: Enoxaparin subQ DIET: Liquid Anticipated hospital stay: >2 days Code Status: Full Subjective Date/time seen: 01/11/24 11:30 Interval history: Interval history: Patient unable to provide history Per chart review This is a 43-year-old male with developmental delay and autism who presented to the emergency department via EMS from [facility] for evaluation of vomiting. He is unable to provide any history and thus all of the following is obtained via a review of his EMR. The patient is known to myself and the hospitalist service from previous admissions. According to documentation, he was brought in today for evaluation of dark green emesis. In the ED he was hesitant to allow examination, which was limited. He
[2024-01-12] VITALS (9 sets, daily range): BP systolic 124–135; BP diastolic 76–81; PULSE 87–102; RESP 16; TEMP 36.6–37.1; O2SAT 94–96; BMI 20.3
[2024-01-12] MEDS: LACTATED RINGERS 1,000 ML 100 ML IV CONT (04:15)
[2024-01-12] MEDS: PIPERACILLN/TAZ 3.375GM/NS50ML 3.375 GM/50 ML BAG IVPB ×3 (05:11→18:00)
[2024-01-12 05:33] LABS: Basophils Absolute Auto 0.1 K/mm3 (0.0-0.1); Basophils Percent Auto 0.5 % (0.2-1.2); Eosinophils Absolute Auto 0.3 K/mm3 (0-0.3); Eosinophils Percent Auto 2.3 % (0-4.4); Hematocrit 39.1 % (42.0-52.0); Hemoglobin 11.9 g/dL (14.0-18.0); Immature Granulocyte Absolute 0.11 K/mm3 (0.00-0.031); Immature Granulocyte Percent A 0.8 % (0-0.5); Lymphocytes Absolute Auto 2.45 K/mm3 (0.9-3.2); Mean Corpuscular HGB Conc 30.4 g/dl (32-36); Mean Corpuscular Hemoglobin 26.7 pg (26-34); Mean Corpuscular Volume 87.7 fl (80-100); Mean Platelet Volume 9.5 fl (7.4-10.4); Monocytes Absolute Auto 1.2 K/mm3 (0.1-0.6); Neutrophils Absolute Auto 10.3 K/mm3 (1.3-6.7); Neutrophils Percent Auto 71.4 % (45.5-73.1); Platelet Count Result 365 k/mm3 (150-375); Red Blood Count 4.46 M/mm3 (4.6-6.20); Red Cell Distribution Width 13.6 % (11.5-14.5); White Blood Count 14.4 K/mm3 (4.5-10.0)
[2024-01-12 05:44] LABS: Alanine Aminotransferase 33 U/L (6-50); Albumin Level 3.7 g/dL (3.5-5.1); Alkaline Phosphatase 106 U/L (38-126); Anion Gap 6 mmol/L (8-16); Aspartate Amino Transferase 26 U/L (17-59); Bilirubin,Total 1.1 mg/dL (0.2-1.3); Blood Urea Nitrogen 3 mg/dL (9-20); Calcium 8.8 mg/dL (8.4-10.2); Carbon Dioxide 26 mmol/L (22-30); Chloride 105 mmol/L (98-107); Estimated CRCL calculation 86 ml/min; Estimated Glomerular Filt Rate > 60; Glucose 100 mg/dL (65-110); Potassium 3.7 mmol/L (3.4-5.0); Sodium 137 mmol/L (137-145)
[2024-01-12] MEDS: FAMOTIDINE 20 MG TABLET FEED TUBE ×2 (09:57→22:20)
[2024-01-12] MEDS: SENNA/DOCUSATE SODIUM TABLET 1 TAB PO ×2 (09:57→17:59)
[2024-01-12] MEDS: PANTOPRAZOLE SODIUM IV 40 MG VIAL IV PUSH ×2 (09:57→22:20)
[2024-01-12] MEDS: polyethylene glycoL 3350 17 GM POWD.PACK FEED TUBE (10:01)
--- NOTE | 2024-01-12 10:21 | PM.IMPN ---
Progress Note: A&P Assessment and Plan (1) Sepsis: Code(s): A41.9 - Sepsis, unspecified organism Status: Resolved Assessment and Plan: Lactic acid has normalized negative for influenza, RSV, and COVID. Chest x-ray showed no acute findings. CT of the abdomen pelvis was limited due to positioning and patient motion. Prominent, diffuse thickening of the urinary bladder wall was noted. -continue Zosyn 3.375 (2) Dehydration: Code(s): E86.0 - Dehydration Status: Resolved Assessment and Plan: -d/c IV -recheck CBC, CMP in a.m. -monitor/record I&O (3) Abnormal urinalysis: Code(s): R82.90 - Unspecified abnormal findings in urine Status: Acute Assessment and Plan: See UTI (4) Vomiting: Code(s): R11.10 - Vomiting, unspecified Status: Resolved Assessment and Plan: -continue aspiration precautions -advance diet as tolerated (5) Elevated LFTs: Code(s): R79.89 - Other specified abnormal findings of blood chemistry Status: Acute Assessment and Plan: Abdomen ultrasound reveals: Small amount of non shadowing hypoechoic material along the dependent wall of the nondilated gallbladder this likely represents sludge although differential would include a polyp or focal gallbladder wall thickening. Recommend follow-up ultrasound or MRCP when patient's condition improves is more cooperative with imaging. 2. No cholelithiasis or intra or extrahepatic biliary ductal dilation. AST, Total bulmaro, AST and ALT have all normalized (6) UTI (urinary tract infection): Qualifiers: Encounter type: initial encounter Indwelling urinary catheter type: indwelling urethral catheter Urinary tract infection type: catheter-associated UTI Qualified Code(s): T83.511A - Infection and inflammatory reaction due to indwelling urethral catheter, initial encounter; N39.0 - Urinary tract infection, site not specified Code(s): N39.0 - Urinary tract infection, site not specified Status: Acute Assessment and Plan: -patient chronic indwelling Lopez catheter urine culture, final reveals superficial bacteria not indicative of uti -continue Lopez care -discussed with ID Pharm, will de-escalate abx in the a.m. to PO (7) Lactic acidosis: Code(s): E87.20 - Acidosis, unspecified Status: Resolved Assessment and Plan: -resolved (8) Autism: Code(s): F84.0 - Autistic disorder Status: Chronic Assessment and Plan: Patient is nonverbal, -initiate fall precaution -PT eval and treat (9) Chronic indwelling Lopez catheter: Code(s): Z97.8 - Presence of other specified devices Status: Chronic Assessment and Plan: -continue lopez care (10) Leukocytosis: Qualifiers: Leukocytosis type: other Qualified Code(s): D72.828 - Other elevated white blood cell count Code(s): D72.829 - Elevated white blood cell count, unspecified Status: Acute Assessment and Plan: WBC continues to trend down today 14.4 chronic, suspect secondary to urinary tract infection -continue to monitor CBC, CMP in the a.m. Plan Continue home medications: VTE Prophylaxis: Enoxaparin subQ DIET: Liquid Anticipated hospital stay: >2 days Code Status: Full Subjective Date/time seen: 01/12/24 10:21 Interval history: Interval history: Patient unable to provide history Per chart review This is a 43-year-old male with developmental delay and autism who presented to the emergency department via EMS from [facility] for evaluation of vomiting. He is unable to provide any history and thus all of the following is obtained via a review of his EMR. The patient is known to myself and the hospitalist service from previous admissions. According to documentation, he was brought in today for evaluation of dark green emesis. In the ED he was hesitant to allow examination, which was
--- NOTE | 2024-01-12 11:33 | PCSTNOTE ---
Please refer to the Bedside Swallow Evaluation in the EMR. Please note, silent aspiration cannot be ruled out at bedside.
--- NOTE | 2024-01-12 12:06 | WPDGICN ---
Assessment and Plan Assessment and plan (1) Hyperbilirubinemia: Code(s): E80.6 - Other disorders of bilirubin metabolism Status: Acute Assessment and Plan: Bilirubin had been elevated but now has normalized. likewise alkaline phosphatase, which was slightly elevated is also normal now. I think it is unlikely at this point that he has common bile duct stones. If sepsis is from biliary tract that would be most likely his gallbladder. If he had cholangitis bilirubin would be elevated consequently, I do not see the need for an MRCP at this time and it would probably be of limited value because it would be so susceptible to motion which was an issue with his previous imaging studies. (2) Lactic acidosis: Code(s): E87.20 - Acidosis, unspecified Status: Resolved Assessment and Plan: on admission he had lactic acid level of 4.9. It has since normalized. (3) Nausea and vomiting: Qualifiers: Vomiting type: unspecified Qualified Code(s): R11.2 - Nausea with vomiting, unspecified Code(s): R11.2 - Nausea with vomiting, unspecified Status: Acute Assessment and Plan: He has lunch tray and is picking at it. (4) Sepsis: Qualifiers: Sepsis acute organ dysfunction status: unspecified Sepsis type: sepsis due to unspecified organism Qualified Code(s): A41.9 - Sepsis, unspecified organism Code(s): A41.9 - Sepsis, unspecified organism Status: Acute Assessment and Plan: He has been started on antibiotics. White blood count has come down from 38,ooo two days ago to 14,000 now. (5) Status post insertion of percutaneous endoscopic gastrostomy (PEG) tube: Code(s): Z93.1 - Gastrostomy status Status: Acute Assessment and Plan: Site looks good Plan given his normalization of enzymes and bilirubin I do not think that MRCP would help us in terms of looking for common bile duct stones. In other words I do not think there is a likely cabrera of him having common bile duct stones. Could it be helpful in terms of looking for cholecystitis? I do not know but I doubt that he would be able to cooperative. GI Consult Note Consult date/time: 01/12/24 12:06 HPI: Ricky Swanson is a 43 year old male Who due to developmental delays and autism is not communicative. He appears comfortable. I was able to get him to nod yes and no to some questions. When examine his abdomen he denied having pain. He was admitted a couple of days ago with elevated lactic acid, marked leukocytosis and suspicion of sepsis. I am asked to see him because of elevation of liver enzymes and the possible need for MRCP. CT scan that was done on admission reveals: FINDINGS: Rotation due to suboptimal patient positioning and motion. Prominent bullae of both lungs are noted. Heart size is normal. No pericardial or pleural effusion. There are some atelectasis and/or consolidation at the lung bases. Moderately large sliding hiatal hernia. Normal splenic size. The liver is not completely imaged due to positioning and motion artifact. No obvious hepatic lesion is evident. No intrahepatic or extra hepatic bile duct dilatation or pancreatic duct dilatation is evident. No pancreatic mass lesion or calcification. Normal morphology of the adrenal glands. No urinary tract calculus or hydroureteronephrosis. Approximately 1.3 cm upper pole left renal cyst. 1.2 cm lower pole left renal cyst. There is a Cardona catheter within the urinary bladder. The bladder wall is very prominently thickened throughout, which may be due to neurogenic bladder, cystitis and/or prostatomegaly/bladder outlet obstruction. Prostatomegaly. Normal caliber of the abdominal aorta. No intraperitoneal or retroperitoneal or pelvic mass lesion or adenopathy or ascites. Gastrostomy tube is noted within the gastric lumen. Left lower quadrant colostomy. No bowel obstruction or intraperitoneal free air is detected.
--- NOTE | 2024-01-12 12:16 | PM.CNGS ---
Assessment and Plan Assessment and plan (1) Abnormal findings on diagnostic imaging of gallbladder: Code(s): R93.2 - Abnormal findings on diagnostic imaging of liver and biliary tract Status: Acute Assessment and Plan: I reviewed the imaging and assessed the patient. I cannot appreciate any abdominal tenderness on exam. He appears to be eating without any worsening symptoms and white blood count has come down with current treatment. Due to his medical history and prior abdominal surgeries, I would not recommend any surgery unless there are clear signs or high suspicion of cholecystitis on imaging. Continue medical treatment for current infection. Okay to return to shelter facility from surgical standpoint. (2) Sepsis: Qualifiers: Sepsis acute organ dysfunction status: unspecified Sepsis type: sepsis due to unspecified organism Qualified Code(s): A41.9 - Sepsis, unspecified organism Code(s): A41.9 - Sepsis, unspecified organism Status: Acute (3) UTI (urinary tract infection): Qualifiers: Encounter type: initial encounter Indwelling urinary catheter type: indwelling urethral catheter Urinary tract infection type: catheter-associated UTI Qualified Code(s): T83.511A - Infection and inflammatory reaction due to indwelling urethral catheter, initial encounter; N39.0 - Urinary tract infection, site not specified Code(s): N39.0 - Urinary tract infection, site not specified Status: Acute (4) Nausea and vomiting: Qualifiers: Vomiting type: unspecified Qualified Code(s): R11.2 - Nausea with vomiting, unspecified Code(s): R11.2 - Nausea with vomiting, unspecified Status: Acute History of Present Illness Consult details Consult date: 01/12/24 Reason for consult: other (abnormal gallbladder imaging) Requesting physician: Beatriz Schroeder, JOCY Narrative: This is a 43-year-old man who I am asked to see for abnormal gallbladder imaging. He has autism and is nonverbal. History is obtained from the chart. He presented to the emergency department from the nursing facility on 01/09/2024 with nausea and vomiting. He was found to have signs of sepsis and a urinary tract infection and was admitted for further workup and treatment. A CT was done in the ED, but imaging was somewhat limited by motion artifact. A gallbladder ultrasound was also obtained which showed likely sludge, but no signs of cholelithiasis or dilated common bile duct. His liver enzymes were slightly elevated on admission but are now normal. He has been eating since being admitted. He does not appear to be tender on exam. Review of Systems Review of Systems: ROS unobtainable: Yes unobtainable due to medical condition and unobtainable due to mental status PMFSH Past Medical History Medical History Autism Cognitive developmental delay Surgical History Surgical History History of exploratory laparotomy (09/2022) Exploratory laparotomy with sigmoid colon resection and colostomy for ischemic bowel. History of gastrostomy tube placement Family History Family History Other Family history unknown Social History Social History Social History: Surrogate medical decision maker: Man Swanson, father or Samia Hale, sister. Code status: Full code. Smoking status: Never smoker Second hand tobacco smoke exposure: No Alcohol intake: never Substance use: never Substance use type: does not use Additional living arrangements comments: Resident at [facility]. Spiritual care concerns: No Meds Home Medications and Allergies Home Medications Medication Instructions Recorded Confirmed Type famotidine 20 mg tablet 20 m
--- NOTE | 2024-01-12 14:54 | PCPTNOTE ---
attempted PT evaluation x2, unable to get any information about past physical ability or consent for physical therapy d/t pt being non-verbal, spoke with case coordination about past physical ability, they are also uncertain of physical ability, care coordination note states he used a lift for mobility at his facility
[2024-01-13] VITALS (11 sets, daily range): BP systolic 111–133; BP diastolic 72–85; PULSE 92–109; RESP 14–18; TEMP 36.2–36.9; O2SAT 94–97
[2024-01-13] MEDS: PIPERACILLN/TAZ 3.375GM/NS50ML 3.375 GM/50 ML BAG IVPB ×2 (00:33→05:45)
--- NOTE | 2024-01-13 05:49 | PC.NURSE ---
Pt removed tube feeding line at unknown time, unknown quantity of tube feed lost during that time. 428ml intake recorded from pump
[2024-01-13 06:03] LABS: Basophils Absolute Auto 0.1 K/mm3 (0.0-0.1); Basophils Percent Auto 0.6 % (0.2-1.2); Eosinophils Absolute Auto 0.4 K/mm3 (0-0.3); Eosinophils Percent Auto 2.6 % (0-4.4); Hematocrit 40.3 % (42.0-52.0); Hemoglobin 12.6 g/dL (14.0-18.0); Immature Granulocyte Absolute 0.11 K/mm3 (0.00-0.031); Immature Granulocyte Percent A 0.8 % (0-0.5); Lymphocytes Absolute Auto 2.57 K/mm3 (0.9-3.2); Lymphocytes Percent Auto 17.9 % (18.3-44.2); Mean Corpuscular HGB Conc 31.3 g/dl (32-36); Mean Corpuscular Volume 86.5 fl (80-100); Mean Platelet Volume 9.3 fl (7.4-10.4); Monocytes Absolute Auto 1.2 K/mm3 (0.1-0.6); Monocytes Percent Auto 8.1 % (2.6-8.5); Neutrophils Absolute Auto 10.1 K/mm3 (1.3-6.7); Platelet Count Result 343 k/mm3 (150-375); Red Blood Count 4.66 M/mm3 (4.6-6.20); Red Cell Distribution Width 13.6 % (11.5-14.5); White Blood Count 14.4 K/mm3 (4.5-10.0)
[2024-01-13 06:09] LABS: Alanine Aminotransferase 32 U/L (6-50); Albumin Level 3.7 g/dL (3.5-5.1); Alkaline Phosphatase 87 U/L (38-126); Anion Gap 6 mmol/L (8-16); Aspartate Amino Transferase 31 U/L (17-59); Bilirubin,Total 0.7 mg/dL (0.2-1.3); Blood Urea Nitrogen 6 mg/dL (9-20); Calcium 8.7 mg/dL (8.4-10.2); Carbon Dioxide 27 mmol/L (22-30); Chloride 106 mmol/L (98-107); Estimated CRCL calculation 89 ml/min; Estimated Glomerular Filt Rate > 60; Glucose 126 mg/dL (65-110); Potassium 3.8 mmol/L (3.4-5.0); Sodium 139 mmol/L (137-145)
[2024-01-13] MEDS: levoFLOXacin 750 MG TABLET FEED TUBE (09:52)
[2024-01-13] MEDS: polyethylene glycoL 3350 17 GM POWD.PACK FEED TUBE (09:55)
--- NOTE | 2024-01-13 11:07 | PM.DS ---
DS: Admitting Diagnosis Discharge Date 01/13/2024 Admitting Diagnosis Vomiting DS: Discharge Diagnosis Discharge Diagnosis (1) Abnormal findings on diagnostic imaging of gallbladder: Code(s): R93.2 - Abnormal findings on diagnostic imaging of liver and biliary tract Status: Acute (2) Elevated LFTs: Code(s): R79.89 - Other specified abnormal findings of blood chemistry Status: Acute (3) Sepsis: Qualifiers: Sepsis acute organ dysfunction status: unspecified Sepsis type: sepsis due to unspecified organism Qualified Code(s): A41.9 - Sepsis, unspecified organism Code(s): A41.9 - Sepsis, unspecified organism Status: Acute (4) UTI (urinary tract infection): Qualifiers: Encounter type: initial encounter Indwelling urinary catheter type: indwelling urethral catheter Urinary tract infection type: catheter-associated UTI Qualified Code(s): T83.511A - Infection and inflammatory reaction due to indwelling urethral catheter, initial encounter; N39.0 - Urinary tract infection, site not specified Code(s): N39.0 - Urinary tract infection, site not specified Status: Acute (5) Lactic acidosis: Code(s): E87.20 - Acidosis, unspecified Status: Resolved (6) Hyperbilirubinemia: Code(s): E80.6 - Other disorders of bilirubin metabolism Status: Acute (7) Nausea and vomiting: Qualifiers: Vomiting type: unspecified Qualified Code(s): R11.2 - Nausea with vomiting, unspecified Code(s): R11.2 - Nausea with vomiting, unspecified Status: Acute (8) Dehydration: Code(s): E86.0 - Dehydration Status: Resolved DS: Summary Hospital Course Reason for hospitalization: This is a 43-year-old male with developmental delay and autism who presented to the emergency department via EMS from [facility] for evaluation of vomiting Hospital Course: Pt is not able to provide reliable HPI: information gathered through chart review Narrative from admission He is unable to provide any history and thus all of the following is obtained via a review of his EMR. The patient is known to myself and the hospitalist service from previous admissions. According to documentation, he was brought in today for evaluation of dark green emesis. In the ED he was hesitant to allow examination, which was limited. He does not answer questions or follow commands. He had a low-grade fever on arrival and has been tachypneic since presentation. Blood pressures have remained stable. Labs were significant for WBC count of 30.6, BUN 23, lactic acid 2.5, calcium 10.3, total bilirubin 1.4, ALT 142, alkaline phosphatase 185, total protein 11.0. Urine was cloudy with 2+ protein, trace ketones, 3+ blood, 1+ leukocyte esterase, greater than 100 RBC and WBC, and rare bacteria were noted on microscopy. He was negative for influenza, RSV, and COVID. Chest x-ray showed no acute findings. CT of the abdomen pelvis was limited due to positioning and patient motion. Prominent, diffuse thickening of the urinary bladder wall was noted. ED Work-up revealed:? Pt had a low-grade fever on arrival and has been tachypneic since presentation. Blood pressures have remained stable. Labs were significant for WBC count of 30.6, BUN 23, lactic acid 2.5, calcium 10.3, total bilirubin 1.4, ALT 142, alkaline phosphatase 185, total protein 11.0. Urine was cloudy with 2+ protein, trace ketones, 3+ blood, 1+ leukocyte esterase, greater than 100 RBC and WBC, and rare bacteria were noted on microscopy. He was negative for influenza, RSV, and COVID. Chest x-ray showed no acute findings. CT of the abdomen pelvis was limited due to positioning and patient motion. Prominent, diffuse thickening of the urinary bladder wall was noted. Interval Hx: 01/10/2024: Pt seen this morning, he is awake, staff is by the bedside. Pt appears in no acute distress, he is self serving himself a drink, he allows for a limited exa
--- NOTE | 2024-01-13 12:51 | PCNFU ---
Nutrition Follow-Up Complete: Inadequate oral intake related to chronic loss of appetite as evidenced by PEG tube and need for supplemental tube feeding Meet estimated nutrition needs Tolerate tube feeding at goal rate Goal: Goals are being met with current tube feeding rate. Continue same goals Pt current nutrition is Rgular diet. Supplemental tube feeding 8 pm-4 am Jevity 1.5@ 60 ml/h. Nutrition recommendation: No new recommendations. Continue current nutrition care plan and orders. Agree with orders. Last recorded weight is 47.2 kg. Bowel Motility:+1 BM 01/12/24 FMS, colostomy Labs Reviewed: Hgb 12. 6, Hct 40.3, BUN 6, Cre 0.6, Glu 126 Meds Noted: Lovenox, Zofran, Protonix, Miralax, Senna Skin: WNL Additional Notes: Meeting about 50% nutrition needs with tube feeding. Oral intakes 50-75% meals. Nutritional ice cream BID for additional 290 kcal and 9 g protein each. Jevity 1.5 @ 60 ml/h (8 hours): 720 kcal, 30 g protein, 364 ml free water. monitoring intakes, weights, labs, tube feeding orders, plan of care Follow up Tuesdays and Fridays per policy
[2024-01-13 17:44] LABS: SARS-CoV-2 RNA PCR Negative (Negative)
[2024-01-14 05:10] LABS: Legionella pneumophila Ag Ur Not Detected (Not Detected)
== END 2024-01-13 21:49 | DRG 466 ==
LOC: ANHED 17:36 → ANH2MED 01-12 09:57 → ANH3MEDSUR 01-14 10:45
PROVIDERS: Emergency Medicine; Admitting Provider Hospitalist; Emergency Provider Physician Assistant; PCP Hospitalist; Visit Provider Nurse Practitioner
DX: T83.511A Infection and inflammatory reaction due to indwelling urethral catheter, initial encounter (principal); A41.9 Sepsis, unspecified organism; N39.0 Urinary tract infection, site not specified; E87.20 Acidosis, unspecified; E80.6 Other disorders of bilirubin metabolism; R93.2 Abnormal findings on diagnostic imaging of liver and biliary tract; E86.0 Dehydration; R11.2 Nausea with vomiting, unspecified; F84.0 Autistic disorder; F81.89 Other developmental disorders of scholastic skills; Z20.822 Contact with and (suspected) exposure to COVID-19; Z93.1 Gastrostomy status
CPT/HCPCS: 36415; 71045; 74177; 76705; 80048; 80053; 81001; 83605; 83690; 83735; 84145; 84484; 85025; 85027; 85610; 85730; 87040; 87086; 87449; 87635; 87637; 92610; 93005; 96361; 96365; 96375; 99285; A9270; C9113; G0378; G0379; J0696; J1650; J2405; J2543; J7030; J7120; Q9967

== ENCOUNTER 2024-03-05 22:44 | Emergency (ER) | payer OTHER, SELFPAY ==
--- NOTE | ~2024-03-05 | XR_ITS ---
EXAMINATION: XR abdomen gastric tube insert DATE: 03/06/2024 00:48 INDICATION: G-tube placement TECHNIQUE: A supine view of the abdomen and lower chest was obtained for evaluation of feeding tube placement. COMPARISON: None. FINDINGS: Percutaneous gastrostomy tube tip and some injected contrast within the proximal body of the stomach. Multiple gas-filled but not frankly dilated loops of bowel. Left lower quadrant ostomy. IMPRESSION: 1. Percutaneous gastrostomy tube tip and injected contrast in the stomach. Reviewed, dictated and finalized at location A.
[2024-03-05 22:42] VITALS: BP 136/80; PULSE 96; RESP 20; TEMP 36.3; O2SAT 95
--- NOTE | 2024-03-05 23:00 | ED.GENADULT ---
HPI - General Adult General Chief complaint: Unspecified Stated complaint: g tube related Time Seen by Provider: 03/05/24 22:50 Source: patient Mode of arrival: ambulatory Limitations: clinical condition History of Present Illness HPI narrative: This is a 43-year-old male with PMH of autism, nonverbal, indwelling Cardona catheter, peg tube who presents to the ED via EMS from [facility] for G-tube dislodgement. Patient is unable to provide any history. Per chart review G-tube has been in place for well over a year and should have mature tract. Related Data Home Medications Medication Instructions Recorded Confirmed polyethylene glycol 3350 17 17 g feeding tube DAILY 01/09/24 01/09/24 gram/dose oral powder (Miralax) sennosides 8.6 mg-docusate sodium 1 tablet PO BID 01/09/24 01/09/24 50 mg tablet (Senna Plus) Allergies Allergy/AdvReac Type Severity Reaction Status Date / Time No Known Allergies Allergy Verified 09/05/23 12:24 Review of Systems Review of Systems: All systems as dictated in [facility] Past Medical History Medical History Autism Cognitive developmental delay Surgical History Surgical History History of exploratory laparotomy (09/2022) Exploratory laparotomy with sigmoid colon resection and colostomy for ischemic bowel. History of gastrostomy tube placement Family History Family History Other Family history unknown Social History Social History Social History: Surrogate medical decision maker: Man Swanson, father or Samia Hale, sister. Code status: Full code. Smoking status: Never smoker Second hand tobacco smoke exposure: No Alcohol intake: never Substance use: never Substance use type: does not use Additional living arrangements comments: Resident at [facility]. Spiritual care concerns: No Exam Narrative: GENERAL: Well-appearing, well-nourished, and in no acute distress. HEAD: Normocephalic, atraumatic. EYES: PERRLA and EOMI. ENT: Nares clear, no rhinorrhea or epistaxis. Mucous membranes moist. Oropharynx without tonsillar hypertrophy exudate or other lesions. NECK: Supple. No adenopathy or masses. CHEST: No respiratory distress. Clear to auscultation. No wheezes rales or rhonchi HEART: Regular rate and rhythm. No murmur heard. Normal peripheral pulses. ABDOMEN: Open G-tube site. Tube has been dislodged. No surrounding erythema. No purulence. Soft, nontender, nondistended, normal active bowel sounds. MSK: Normal range of motion. No edema. SKIN: Warm, dry, no rash. NEURO: Alert. Moving all 4 extremities. PSYCH: Autistic/nonverbal. Course Vital Signs Vital signs: Vital Signs Temperature 97.3 F L 03/05/24 22:42 Pulse Rate 96 03/05/24 22:42 Respiratory Rate 20 03/05/24 22:42 Blood Pressure 136/80 03/05/24 22:42 Pulse Oximetry 95 03/05/24 22:42 Oxygen Delivery Room Air 03/05/24 22:42 Temperature 97.3 F L 03/05/24 22:42 Pulse Rate 86 03/06/24 01:22 Respiratory Rate 16 03/06/24 01:22 Blood Pressure 101/71 03/06/24 01:22 Pulse Oximetry 100 03/06/24 01:22 Oxygen Delivery Room Air 03/05/24 22:42 Procedures Feeding Tube Replacement Feeding Tube #1: Feeding Tube Placement Date: 03/06/24 Feeding Tube Placement Time: 00:57 Type of Tube: gastrostomy Insertion Site Prior to Procedure: clean Tube Used for Reinsertion: other Armenian Tube Size (F): 16 Balloon size (mL): 5 Verification of Placement: KUB and gastrografin injection Tube Secured by: tape/dressing Patient Tolerated Procedure: well and no complications Medical Decision Making MDM Narrative Medical decision making narrative: This is a
[2024-03-05] MEDS: LORazepam INJ (*CRX) 2 MG/ML VIAL 0.5 MG IM (23:27)
[2024-03-06] MEDS: HALOPERIDOL LACTATE 5 MG/ML VIAL IM (00:05)
[2024-03-06] MEDS: LORazepam INJ (*CRX) 2 MG/ML VIAL 0.5 MG IM (00:06)
--- NOTE | 2024-03-06 00:36 | PC.NURSE ---
pt arrived with g tube out of place. facility is unaware of how long g tube has been removed. pt is combative and not willing to let medical staff assess tube site. pt began hitting/ kicking/ pinching staff. pt has urinary catheter in place prior to arrival along with colostomy bag.
[2024-03-06 01:22] VITALS: BP 101/71; PULSE 86; RESP 16; O2SAT 100
== END 2024-03-06 02:00 ==
PROVIDERS: Emergency Provider Physician Assistant; PCP Hospitalist
DX: Z43.1 Encounter for attention to gastrostomy (principal); F84.0 Autistic disorder
CPT/HCPCS: 43762; 96372; 99284; J1630; J2060

== ENCOUNTER 2024-04-06 11:39 | Emergency (ER) | payer OTHER, SELFPAY ==
--- NOTE | ~2024-04-06 | XR_ITS ---
EXAMINATION: XR abdomen gastric tube rechec DATE: 04/06/2024 12:32 INDICATION: G-tube placement TECHNIQUE: A supine view of the abdomen and lower chest was obtained for evaluation of feeding tube placement. COMPARISON: 09/06/2023 FINDINGS: Percutaneous gastrostomy tube likely in the body of the stomach but now projecting over the right upp er quadrant likely due to rightward rotation of the patient. The injected contrast can be seen extend ing throughout multiple loops of normal-appearing small bowel. Lung bases are clear. IMPRESSION: 1. Percutaneous gastrostomy tube likely in the stomach with injected contrast extending throughout mu ltiple loops of small bowel. Reviewed, dictated and finalized at location B. IMPRESSION: 1. Percutaneous gastrostomy tube likely in the stomach with injected contrast e xtending throughout multiple loops of small bowel.
[2024-04-06 11:48] VITALS: BP 124/71; PULSE 92; RESP 18; TEMP 36.4; O2SAT 94
[2024-04-06 11:50] VITALS: O2SAT 94
--- NOTE | 2024-04-06 12:03 | ED.GENADULT ---
HPI - General Adult General Chief complaint: Recheck/Abnormal Lab/Rx Stated complaint: removed g tube Time Seen by Provider: 04/06/24 11:53 History of Present Illness HPI narrative: [age] old male presenting to the emergency department for evaluation for having his G-tube removed. [facility] states that he did removehis G-tube last night. On examination patient does have an intact G-tube with the balloon currently filled. Related Data Home Medications Medication Instructions Recorded Confirmed polyethylene glycol 3350 17 17 g feeding tube DAILY 01/09/24 01/09/24 gram/dose oral powder (Miralax) sennosides 8.6 mg-docusate sodium 1 tablet PO BID 01/09/24 01/09/24 50 mg tablet (Senna Plus) Allergies Allergy/AdvReac Type Severity Reaction Status Date / Time No Known Allergies Allergy Verified 09/05/23 12:24 Review of Systems Review of Systems: All systems reviewed & are unremarkable except as noted in HPI and below PMFSH Past Medical History Medical History Autism Cognitive developmental delay Surgical History Surgical History History of exploratory laparotomy (09/2022) Exploratory laparotomy with sigmoid colon resection and colostomy for ischemic bowel. History of gastrostomy tube placement Family History Family History Other Family history unknown Social History Social History Social History: Surrogate medical decision maker: Man Swanson, father or Samia Hale, sister. Code status: Full code. Smoking status: Never smoker Second hand tobacco smoke exposure: No Alcohol intake: never Substance use: never Substance use type: does not use Additional living arrangements comments: Resident at [facility]. Spiritual care concerns: No Exam Narrative: APPEARANCE: Well appearing, no pain, no distress, well-nourished. HEAD: normocephalic, atraumatic. EYES: PERRLA/EOMI, conjunctivae clear. NOSE: Normal no drainage EARS:TMS clear with good light reflex. THROAT: Pharynx clear, no exudate. NECK: Supple. No adenopathy, no masses. RESPIRATORY: Airway patent, respirations nonlabored. Clear to auscultation bilaterally, no rales, rhonchi, wheezing. CARDIOVASCULAR: Regular rate and rhythm without murmurs rubs or gallops. ABDOMINAL: Soft, nontender, nondistended, normal bowel sounds MUSCULOSKELETAL: Moves all extremities. Strength/ROM intact, No edema, No calf tenderness. NEURO: Normal verbal and at baseline SKIN: Warm, dry. Normal Color Course Course Emergency Course: Patient's G-tube was intact and patient was discharged back to his care facility Vital Signs Vital signs: Vital Signs Temperature 97.5 F L 04/06/24 11:48 Pulse Rate 92 04/06/24 11:48 Respiratory Rate 18 04/06/24 11:48 Blood Pressure 124/71 04/06/24 11:48 Pulse Oximetry 94 04/06/24 11:48 Temperature 97.8 F 04/06/24 13:11 Pulse Rate 90 04/06/24 13:11 Respiratory Rate 18 04/06/24 13:11 Blood Pressure 130/76 04/06/24 13:11 Pulse Oximetry 95 04/06/24 13:11 Medical Decision Making MDM Narrative Medical decision making narrative: [age] old male presenting emergency department for evaluation for a suspected dislodged G-tube. On physical exam patient is G2 is in place and ballooned does feel inflated. X-ray does show expected proper placement of the G-tube. Patient was discharged back to his care facility. Differential Diagnosis Differential Diagnosis: Dislodged G-tube, intact G-tube Vital Signs Vital Signs: Vital Signs Temperature 97.5 F L 04/06/24 11:48 Pulse Rate 92 04/06/24 11:48 Respiratory Rate 18 04/06/24 11:48 Blood Pressure 124/71 04/06/24 11:48 Pulse Oximetry 94 04/06/24 11:48 Temperature 97.8 F
[2024-04-06 13:11] VITALS: BP 130/76; PULSE 90; RESP 18; TEMP 36.6; O2SAT 95
== END 2024-04-06 13:11 ==
PROVIDERS: Emergency Provider Emergency Medicine; PCP Hospitalist
DX: Z43.1 Encounter for attention to gastrostomy (principal); F84.0 Autistic disorder
CPT/HCPCS: 43762; 99283

== ENCOUNTER 2024-05-03 13:28 | Inpatient (IN) | payer OTHER, SELFPAY ==
[2024-05-03] VITALS (14 sets, daily range): BP systolic 111–162; BP diastolic 54–100; PULSE 108–129; RESP 16–24; TEMP 36.7–38.3; O2SAT 95–98
--- NOTE | ~2024-05-03 | CT_ITS ---
EXAMINATION: CT abdomen pelvis w con DATE: 05/03/2024 16:21 INDICATION: nonlocalized abdominal pain TECHNIQUE: Computed tomography (CT) of the abdomen and pelvis was performed with 100 mL Omnipaque-350 intravenous contrast. Automated exposure control and iterative reconstruction technique were employe d. The dose-length product was 592.71 mGy-cm. COMPARISON: 01/09/2024. FINDINGS: Exam limited by beam hardening from arm down positioning. Lower thorax: Stable large bilateral bullae. Dependent atelectasis. Liver: Simple left lobe cyst. Additional subcentimeter hypodensities that are too small to characteri ze. Biliary/Gallbladder: Gallbladder is normal. No bile duct dilation. Pancreas: Atrophy. No mass or duct dilation. Spleen: Normal. Adrenals:No mass. Kidneys: Multiple simple left renal cysts. Mild bilateral pelviectasis and ureterectasis with urothel ial enhancement. GI tract: Uncomplicated appearing G tube. Mild distal esophageal and gastric wall edema. Left lower q uadrant colostomy, with unchanged herniation. No small or large bowel dilation. Appendix not confiden tly visualized. Mesentery/Peritoneum: No ascites, mass, or free air. Retroperitoneum: No mass. Pelvis: Severe urinary bladder wall thickening with surrounding inflammatory changes, increased since the prior study. Moderate urinary bladder distention despite the presence of a Cardona catheter. Cardona balloon is not visualized. Increased size and edematous change in the seminal vesicles. Soft Tissues: Soft tissues and body wall unremarkable. Bones: No acute osseous finding. IMPRESSION: Mild esophagitis/gastritis. Worsening cystitis, with findings concerning for ascending infection. Increasing perinephric strandin g/inflammation around the left kidney could represent pyelonephritis in the appropriate clinical cont ext. Possible seminal vesiculitis. Cardona catheter balloon is not visualized and the bladder is moderately distended, correlate with tube function. Reviewed, dictated and finalized at location K. IMPRESSION: Mild esophagitis/gastritis. Worsening cystitis, with findings concerning for ascending infection. Increasin g perinephric stranding/inflammation around the left kidney could represent leslie lonephritis in the appropriate clinical context. Possible seminal vesiculitis. Cardona catheter balloon is not visualized and the bladder is moderately distende d, correlate with tube function.
--- NOTE | ~2024-05-03 | XR_ITS ---
EXAMINATION: XR chest 1V portable Exam Date/Time: 05/03/2024 14:45 CDT HISTORY: AMS Comparison: 01/09/2024. RESULT: Lines, tubes, and devices: G-tube over the stomach. Lungs and pleura: Chronic right lung volume loss with hyperexpansion on the left, no pneumothorax, e ffusion, or focal consolidation. Bilateral bullae, greater on the left. Minimal bibasilar scar Cardiomediastinal silhouette: Stable rightward mediastinal shift. Other: No acute osseous or upper abdominal finding. IMPRESSION: No acute cardiopulmonary process. Reviewed, dictated and finalized at location K.
--- NOTE | 2024-05-03 14:46 | PC.NURSE ---
Colostomy bag changed. large amount of soft brown stool. Stoma protruding, moist pink.
[2024-05-03 15:19] LABS: Hematocrit 47.7 % (42.0-52.0); Hemoglobin 15.3 g/dL (14.0-18.0); Mean Corpuscular HGB Conc 32.1 g/dl (32-36); Mean Corpuscular Hemoglobin 26.9 pg (26-34); Mean Platelet Volume 8.9 fl (7.4-10.4); Platelet Count Result 305 k/mm3 (150-375); Red Blood Count 5.68 M/mm3 (4.6-6.20); Red Cell Distribution Width 15.1 % (11.5-14.5); White Blood Count 27.5 K/mm3 (4.5-10.0)
[2024-05-03 15:36] LABS: Alanine Aminotransferase 28 U/L (6-50); Albumin Level 4.8 g/dL (3.5-5.1); Alkaline Phosphatase 103 U/L (38-126); Anion Gap 12 mmol/L (4-12); Aspartate Amino Transferase 39 U/L (17-59); Bilirubin,Total 0.6 mg/dL (0.2-1.3); Blood Urea Nitrogen 32 mg/dL (9-20); Calcium 9.5 mg/dL (8.4-10.2); Carbon Dioxide 22 mmol/L (22-30); Chloride 108 mmol/L (98-107); Estimated CRCL calculation 39 ml/min; Estimated Glomerular Filt Rate > 60; Glucose 142 mg/dL (65-110); Lactic Acid Reflex 2.6 mmol/L (0.7-2.0); Potassium 4.8 mmol/L (3.4-5.0); Sodium 142 mmol/L (137-145)
[2024-05-03 15:42] LABS: Band Neutrophils Percent 1 % (0-6); Monocytes Percent Manual 8 % (3-9); Neutrophils Percent Manual 87 % (46-73); Nucleated Red Blood Cells 1 %; Total Cells Counted 100
[2024-05-03 15:43] LABS: Anisocytosis 1+; Platelet Estimate Adequate (Adequate); Schistocytes None Seen
--- NOTE | 2024-05-03 15:58 | ED_ITS ---
HPI - General Adult General Chief complaint: Altered Mental Status Stated complaint: AMS, tachycardia, nonverbal Time Seen by Provider: 05/03/24 14:14 History of Present Illness HPI narrative: Patient is a 43-year-old male who presents ER with altered mental status. Patient is nonverbal and has autism. He also has a G-tube, a Cardona catheter, and a colostomy bag. The Cardona bag has bloody cloudy urine. He is tender in his lower abdomen. There is no other history that can be provided. Patient is tachycardic on arrival. Related Data Home Medications Medication Instructions Recorded Confirmed polyethylene glycol 3350 17 17 g feeding tube DAILY 01/09/24 01/09/24 gram/dose oral powder (Miralax) sennosides 8.6 mg-docusate sodium 1 tablet PO BID 01/09/24 01/09/24 50 mg tablet (Senna Plus) Allergies Allergy/AdvReac Type Severity Reaction Status Date / Time No Known Allergies Allergy Verified 05/03/24 15:35 Review of Systems Review of Systems: ROS unobtainable: Yes unobtainable due to medical condition PMFSH Past Medical History Medical History Autism Cognitive developmental delay Surgical History Surgical History History of exploratory laparotomy (09/2022) Exploratory laparotomy with sigmoid colon resection and colostomy for ischemic bowel. History of gastrostomy tube placement Family History Family History Other Family history unknown Social History Social History Social History: Surrogate medical decision maker: Man Swanson, father or Samia Hale, sister. Code status: Full code. Smoking status: Never smoker Second hand tobacco smoke exposure: No Alcohol intake: never Substance use: never Substance use type: does not use Additional living arrangements comments: Resident at [facility]. Spiritual care concerns: No Exam Narrative: GENERAL: Chronically ill-appearing, well-nourished, and in no acute distress. HEAD: Normocephalic, atraumatic. ENT: Mucous membranes moist. CHEST: Clear to auscultation. No respiratory distress. HEART: tachycardic regular. Normal peripheral pulses. ABDOMEN: Soft, n Tender to palpation right lower quadrant mildly distended. EXTREMITIES: Normal range of motion. No edema. SKIN: Warm, dry, no rash. NEURO: Awake and alert and at neurologic baseline. PSYCH: Normal mood and affect. Course Course Emergency Course: admit to hospitalist service for RACQUEL and pyelonephritis. Aggressive fluid hydration ordered. Patient has received Tylenol through his G-tube. Vital Signs Vital signs: Vital Signs Temperature 98.2 F 05/03/24 13:29 Pulse Rate 118 H 05/03/24 13:29 Respiratory Rate 23 H 05/03/24 13:29 Blood Pressure 162/100 H 05/03/24 13:29 Pulse Oximetry 98 05/03/24 13:29 Oxygen Delivery Room Air 05/03/24 13:29 Temperature 99.8 F H 05/03/24 16:31 Pulse Rate 124 H 05/03/24 16:31 Respiratory Rate 24 H 05/03/24 16:31 Blood Pressure 155/82 H 05/03/24 16:31 Pulse Oximetry 96 05/03/24 16:31 Oxygen Delivery Room Air 05/03/24 15:30 Medical Decision Making Vital Signs Vital Signs: Vital Signs Temperature 98.2 F 05/03/24 13:29 Pulse Rate 118 H 05/03/24 13:29 Respiratory Rate 23 H 05/03/24 13:29 Blood Pressure 162/100 H 05/03/24 13:29 Pulse Oximetry 98 05/03/24 13:29 Oxygen Delivery Room Air 05/03/24 13:29 Temperature 99.8 F H 05/03/24 16:31 Pulse Rate 124 H 05/03/24 16:31 Respiratory Rate 24 H 05/03/24 16:31 Blood Pressure 155/82 H 05/03/24 16:31 Pulse Oximetry 96 05/03/24 16:31 Oxygen Delivery Room Air 05/03/24 15:30 Lab Data 05/03/24 15:10 05/03/24 15:10 Labs: Lab Results 05/03/24 05/03/24 Range/Units 15:10 15:36 WBC 27.5 H (4.5-10.0) K/mm3 RBC 5.68 (4.6-6.20) M/mm3 Hgb 15.3 (14.0-18.0) g/dL Hct 47.7 (42.0-52.0) % MCV 84.0 (80-100) fl MCH 26.9 (26-34) pg MCHC 32.1 (32-36) g/dl RDW 15.1 H (11.5-14.5) % Plt Count 305 (150-375) k/mm3 MPV 8.9 (7.4-10.4) fl Immature Gran % (Auto) Not Reportable Neut % (Auto) Not Reportable Lymph % (Auto) Not Reportable [place] % (Auto) Not Reportable Eos % (Auto) Not Reportable Baso % (Auto) Not Reportable Lymph # (Auto) Not Reportable [place] # (Auto) Not Reportable Eos # (Auto) Not Reportable Baso # (Auto) Not Reportable Abs Immat Gran (auto) Not Reportable Absolute Neuts (auto) Not Reportable Absolute Nucleated RBC Not Reportable Total Counted 100 Neutrophils % (Manual) 87 H (46-73) % Band Neutrophils % 1 (0-6) % Lymphocytes % (Manual) 4.0 L (18-44) % Monocytes % (Manual) 8 (3-9) % Nucleated RBC % Not Reportable Abs Neuts (Manual) 24.20 H (1.3-6.7) K/mm3 Abs Lymphs (Manual) 1.10 (1.1-4.5) K/mm3 Abs Monocytes (Manual) 2.20 H (0.1-0.90) K/mm3 Nucleated RBCs 1 % Platelet Estimate Adequate (Adequate) Anisocytosis 1+ Schistocytes None seen Sodium 142 (137-145) mmol/L Potassium 4.8 (3.4-5.0) mmol/L Chloride 108 H (98-107) mmol/L Carbon Dioxide 22 (22-30) mmol/L Anion Gap 12 (4-12) mmol/L BUN 32 H D (9-20) mg/dL Creatinine 1.50 H (0.7-1.3) mg/dL Estim Creat Clear Calc 39 ml/min Estimated GFR > 60 (59 - ) Glucose 142 H (65-110) mg/dL Lactic Acid 2.6 H (0.7-2.0) mmol/L Calcium 9.5 (8.4-10.2) mg/dL Total Bilirubin 0.6 (0.2-1.3) mg/dL AST 39 (17-59) U/L ALT 28 (6-50) U/L Alkaline Phosphatase 103 (38-126) U/L Total Protein 9.0 H (6.3-8.2) g/dL Albumin 4.8 (3.5-5.1) g/dL Urine Color Red H (Yellow) Urine Appearance Cloudy H (Clear) Urine pH 8.5 (5.0-9.0) Ur Specific [place] 1.013 (1.001-1.035) Urine Protein 3+ H (Negative) mg/dL Urine Glucose (UA) Negative (Negative) mg/dL Urine Ketones Trace H (Negative) mg/dL Ur Blood (Man) 3+ H (Negative) Urine Nitrate Negative (Negative) Urine Bilirubin Negative (Negative) Urine Urobilinogen 0.2 (<2.0) mg/dL Add Ur Microanalysis Reviewed Leukocyte Esterase Rfl 3+ H (Negative) ELLIS/UL Urine RBC >100 H (0-2) /hpf Urine WBC >100 H (0-3) /hpf Ur Squamous Epith Cells Moderate (Few) /hpf Urine Bacteria 4+ /hpf Urine Casts >20 Urine Characteristics Mucus Threads,Purulent,Sediment Imaging Data Radiologist's impression: ITS Impressions Chest X-Ray 05/03/24 15:25 IMPRESSION: No acute cardiopulmonary process. Abdomen/Pelvis CT 05/03/24 16:21 IMPRESSION: Mild esophagitis/gastritis. Worsening cystitis, with findings concerning for ascending infection. Increasing perinephric stranding/inflammation around the left kidney could represent pyelonephritis in the appropriate clinical context. Possible seminal vesiculitis. Cardona catheter balloon is not visualized and the bladder is moderately distended, correlate with tube function. Critical Care Time Critical Care Time Critical Care Time: Yes Total Critical Care Time: 35 Discharge Plan Discharge Clinical Impression: Pyelonephritis, RACQUEL (acute kidney injury) Patient Disposition: Still a Patient Condition: Serious
[2024-05-03 16:13] LABS: Appearance Urine Cloudy (Clear); Bacteria Urine 4+ /hpf; Bilirubin Urine Negative (Negative); Blood Urine 3+ (Negative); Glucose Urine UA Negative (Negative); Ketones Urine Trace mg/dL (Negative); Leukocyte Esterase Ur 3+ LEU/UL (Negative); Need Manual Microscopic Reviewed; Nitrate Urine Negative (Negative); Non Pathogenic Casts >20; Protein Urine 3+ mg/dL (Negative); RBC Urine >100 /hpf (0-2); Specific Grav Ur 1.013 (1.001-1.035); Squamous Epithelial Cell Urine Moderate /hpf (Few); Urobilinogen Urine 0.2 mg/dL (<2.0); WBC Urine >100 /hpf (0-3); pH Urine 8.5 (5.0-9.0)
[2024-05-03 16:14] LABS: Color Urine Red (Yellow)
[2024-05-03 16:15] LABS: Add Urine Microscopic? YES
[2024-05-03] MEDS: ACETAMINOPHEN 325 MG TABLET 650 MG FEED TUBE (16:28)
--- NOTE | 2024-05-03 17:10 | PC.NURSE ---
RN assessed lopez balloon to be functioning appropriately. Dr. Gutierrez informed
--- NOTE | 2024-05-03 17:33 | PC.NURSE ---
Pt more animated at this time. Playing with puppet. Cardona draining clear yellow urine
--- NOTE | 2024-05-03 17:40 | P.HP_ITS ---
H&P: HPI History of Present Illness Date/Time: 05/03/24 17:40 Chief Complaint: altered mental status Narrative: This is a 43-year-old male patient history of severe autism mostly nonverbal G- tube place colostomy in place chronic indwelling Cardona catheter in place patient with altered mental status today found to have sepsis likely of urogenital source. Imaging suggests ascending urinary tract infection/pyelonephritis. Patient started on IV antibiotics and cultures are pending. He is nonverbal unable to provide any further information no family present. Review of Systems Review of Systems: ROS unobtainable: Yes unobtainable due to medical condition and unobtainable due to mental status PMFSH Past Medical History Medical History Autism Cognitive developmental delay Surgical History Surgical History History of exploratory laparotomy (09/2022) Exploratory laparotomy with sigmoid colon resection and colostomy for ischemic bowel. History of gastrostomy tube placement Family History Family History Other Family history unknown Social History Social History Social History: Surrogate medical decision maker: Man Lambws, father or Samia Hale, sister. Code status: Full code. Smoking status: Never smoker Second hand tobacco smoke exposure: No Alcohol intake: never Substance use: never Substance use type: does not use Additional living arrangements comments: Resident at [facility]. Spiritual care concerns: No Meds Home Medications and Allergies Home Medications Medication Instructions Recorded Confirmed Type famotidine 20 mg tablet 20 mg feeding tube Q12HR 30 days 11/08/22 01/09/24 Rx #60 tabs ondansetron HCl 4 mg tablet 4 mg PO Q6H PRN nausea and 11/16/23 01/09/24 Rx vomiting #60 tabs polyethylene glycol 3350 17 17 g feeding tube DAILY 01/09/24 01/09/24 History gram/dose oral powder (Miralax) sennosides 8.6 mg-docusate sodium 1 tablet PO BID 01/09/24 01/09/24 History 50 mg tablet (Senna Plus) levofloxacin 750 mg tablet 750 mg PO DAILY #4 tabs 01/13/24 Rx Allergies Allergy/AdvReac Type Severity Reaction Status Date / Time No Known Allergies Allergy Verified 05/03/24 15:35 Vital Signs Vital Signs - 24 hr 05/03/24 13:29 05/03/24 15:30 05/03/24 16:31 Temperature 36.8 C 37.7 C H Pulse Rate 118 H 124 H Respiratory Rate 23 H 24 H Blood Pressure 162/100 H 155/82 H Pulse Oximetry 98 98 96 Oxygen Delivery Room Air Room Air 05/03/24 13:30 05/03/24 15:35 05/03/24 15:00 Temperature 38.3 C H 37.2 C Pulse Rate 124 H 127 H 129 H Respiratory Rate 20 24 H Blood Pressure 124/75 155/100 H Pulse Oximetry 96 96 Oxygen Delivery 05/03/24 14:30 05/03/24 16:00 Temperature 37.2 C 38.3 C H Pulse Rate 118 H 115 H Respiratory Rate 23 H 20 Blood Pressure 149/92 H 126/88 Pulse Oximetry 96 96 Oxygen Delivery Exam 2 Narrative: GENERAL: Chronically ill-appearing, no acute distress. HEAD: Normocephalic, atraumatic. ENT: Mucous membranes dry. CHEST: Clear to auscultation. No respiratory distress. HEART: tachycardic rate regular rhythm. Normal peripheral pulses. ABDOMEN: Soft, tender to palpation right lower quadrant, mildly distended. Genitourinary: Cardona catheter in place, large chronic dehiscence at the urinary meatus no active bleeding or purulent drainage EXTREMITIES: Normal range of motion. No edema. SKIN: Warm, dry, no rash. NEURO: Awake and alert and at neurologic baseline. H&P: Results Labs Labs: Short CBC 05/03/24 Range/Units 15:10 WBC 27.5 H (4.5-10.0) K/mm3 Hgb 15.3 (14.0-18.0) g/dL Hct 47.7 (42.0-52.0) % Plt Count 305 (150-375) k/mm3 BMP 05/03/24 15:10 Sodium 142 Potassium 4.8 Chloride 108 H Carbon Dioxide 22 BUN 32 H D Creatinine 1.50 H Glucose 142 H Calcium 9.5 Liver Function 05/03/24 Range/Units 15:10 Total Bilirubin 0.6 (0.2-1.3) mg/dL AST 39 (17-59) U/L ALT 28 (6-50) U/L Alkaline Phosphatase 103 (38-126) U/L Albumin 4.8 (3.5-5.1) g/dL Urine 05/03/24 Range/Units 15:36 Urine Color Red H (Yellow) Urine Appearance Cloudy H (Clear) Urine pH 8.5 (5.0-9.0) Ur Specific [place] 1.013 (1.001-1.035) Urine Protein 3+ H (Negative) mg/dL Urine Glucose (UA) Negative (Negative) mg/dL Pulse Oximetry SpO2 results: 94-98% on room air Attestation: I personally reviewed and interpreted this pulse oximetry as follows: Interpretation: No need for supplemental oxygenation at this time Imaging Chest x-ray: Radiologist's impression: EXAMINATION: XR chest 1V portable Exam Date/Time: 05/03/2024 14:45 CDT HISTORY: AMS Comparison: 01/09/2024. RESULT: Lines, tubes, and devices: G-tube over the stomach. Lungs and pleura: Chronic right lung volume loss with hyperexpansion on the left, no pneumothorax, effusion, or focal consolidation. Bilateral bullae, greater on the left. Minimal bibasilar scar Cardiomediastinal silhouette: Stable rightward mediastinal shift. Other: No acute osseous or upper abdominal finding. IMPRESSION: No acute cardiopulmonary process. Reviewed, dictated and finalized at location K. CT scan - abdomen: Radiologist's impression: EXAMINATION: CT abdomen pelvis w con DATE: 05/03/2024 16:21 INDICATION: nonlocalized abdominal pain TECHNIQUE: Computed tomography (CT) of the abdomen and pelvis was performed with 100 mL Omnipaque-350 intravenous contrast. Automated exposure control and iterative reconstruction technique were employed. The dose-length product was 592.71 mGy-cm. COMPARISON: 01/09/2024. FINDINGS: Exam limited by beam hardening from arm down positioning. Lower thorax: Stable large bilateral bullae. Dependent atelectasis. Liver: Simple left lobe cyst. Additional subcentimeter hypodensities that are too small to characterize. Biliary/Gallbladder: Gallbladder is normal. No bile duct dilation. Pancreas: Atrophy. No mass or duct dilation. Spleen: Normal. Adrenals:No mass. Kidneys: Multiple simple left renal cysts. Mild bilateral pelviectasis and ureterectasis with urothelial enhancement. GI tract: Uncomplicated appearing G tube. Mild distal esophageal and gastric wall edema. Left lower quadrant colostomy, with unchanged herniation. No small or large bowel dilation. Appendix not confidently visualized. Mesentery/Peritoneum: No ascites, mass, or free air. Retroperitoneum: No mass. Pelvis: Severe urinary bladder wall thickening with surrounding inflammatory changes, increased since the prior study. Moderate urinary bladder distention despite the presence of a Cardona catheter. Cardona balloon is not visualized. Increased size and edematous change in the seminal vesicles. Soft Tissues: Soft tissues and body wall unremarkable. Bones: No acute osseous finding. IMPRESSION: Mild esophagitis/gastritis. Worsening cystitis, with findings concerning for ascending infection. Increasing perinephric stranding/inflammation around the left kidney could represent pyelonephritis in the appropriate clinical context. Possible seminal vesiculitis. Cardona catheter balloon is not visualized and the bladder is moderately distended, correlate with tube function. Reviewed, dictated and finalized at location K. Assessment and Plan Assessment and plan (1) Sepsis: Qualifiers: Sepsis acute organ dysfunction status: unspecified Sepsis type: sepsis due to unspecified organism Qualified Code(s): A41.9 - Sepsis, unspecified organism Code(s): A41.9 - Sepsis, unspecified organism Status: Acute Assessment and Plan: White blood cell count 27, lactic acid elevated tachycardia tachypnea fever and altered mental status present. Q sofa score 2 Suspected urogenic source, chronic indwelling Cardona catheter. Imaging concern for ascending urinary tract infection as well as distended bladder despite catheter in place. Replace Cardona catheter. Blood cultures urine culture in process Continue IV antibiotics pending culture results Status post IV fluid resuscitation 30 milliliters/kilogram (2) Pyelonephritis: Code(s): N12 - Tubulo-interstitial nephritis, not specified as acute or chronic Status: Acute Assessment and Plan: See above (3) RACQUEL (acute kidney injury): Code(s): N17.9 - Acute kidney failure, unspecified Status: Acute Assessment and Plan: Baseline creatinine 0.6, creatinine 1.5 on admission Continue IV fluids at approximately 2 milliliters/kilogram per hour after IV fluid bolus (4) Status post insertion of percutaneous endoscopic gastrostomy (PEG) tube: Code(s): Z93.1 - Gastrostomy status Status: Acute Assessment and Plan: Stable G-tube in place. Continue tube feedings as appropriate (5) Chronic indwelling Cardona catheter: Code(s): Z97.8 - Presence of other specified devices Status: Chronic Assessment and Plan: Replace Cardona catheter, see above (6) Colostomy care: Code(s): Z43.3 - Encounter for attention to colostomy Status: Acute Assessment and Plan: Continue routine maintenance colostomy care (7) Autism: Code(s): F84.0 - Autistic disorder Status: Chronic Assessment and Plan: Severe autism with cognitive delay G-tube and colostomy present Continue usual care as much as possible Plan Admit to IMU Medication reconciliation not completed Tube feeding not yet restarted, dietitian consult in place Quality VTE Prophylaxis VTE prophylaxis: pharmacologic ordered Hospitalist MIPS Advance Care Plan I have confirmed that the patient's Advanced Care Plan is present, code status is documented, or surrogate decision maker is listed in patient medical record.: Yes Medication Reconciliation I have utilized all available resources to obtain, update and review the patients current medications (includes all prescriptions, OTC, herbals, cannabis, and nutritional supplements).: No The patient is not eligible for med reconciliation; the patient is in a emergent medical situation where delaying treatment would jeopardize the patients health.: Yes
[2024-05-03 18:17] LABS: Reflex Lactic Acid Yes or No Add Lactic
[2024-05-03 19:15] LABS: Lactic Acid 2.6 mmol/L (0.7-2.0)
--- NOTE | 2024-05-03 19:16 | ADMGEN ---
This patient, Ricky Swanson, was admitted to IMU Room 204-01 at 1835. Patient/family oriented to hospital policies and general routines including ID bracelet, bed and alarms, visiting hours, pain management, procedures, bathroom and other care routines, personal items, smoking policy, room service/diet, and visiting hours. Information on how to activate the Rapid Response Team has been discussed. Patient/Family are encouraged to report perceived risks to care and to ask questions if they do not understand what they are told or what they should do.
[2024-05-04] VITALS (16 sets, daily range): BP systolic 117–153; BP diastolic 67–91; PULSE 78–116; RESP 15–20; TEMP 36.9–37.7; O2SAT 95–98; BMI 17.2
[2024-05-04] MEDS: SODIUM CHLORIDE 0.9% IV 1,000 ML 100 ML IV CONT (01:00)
[2024-05-04 04:47] LABS: Basophils Absolute Auto 0.1 K/mm3 (0.0-0.1); Basophils Percent Auto 0.2 % (0.2-1.2); Hemoglobin 13.5 g/dL (14.0-18.0); Immature Granulocyte Absolute 0.21 K/mm3 (0.00-0.031); Immature Granulocyte Percent A 0.9 % (0-0.5); Lymphocytes Absolute Auto 2.22 K/mm3 (0.9-3.2); Lymphocytes Percent Auto 9.2 % (18.3-44.2); Mean Corpuscular HGB Conc 30.7 g/dl (32-36); Mean Corpuscular Hemoglobin 26.7 pg (26-34); Monocytes Absolute Auto 1.8 K/mm3 (0.1-0.6); Monocytes Percent Auto 7.6 % (2.6-8.5); Neutrophils Absolute Auto 19.8 K/mm3 (1.3-6.7); Neutrophils Percent Auto 82.1 % (45.5-73.1); Platelet Count Result 293 k/mm3 (150-375); Red Blood Count 5.06 M/mm3 (4.6-6.20); Red Cell Distribution Width 15.4 % (11.5-14.5); White Blood Count 24.1 K/mm3 (4.5-10.0)
[2024-05-04 05:02] LABS: Alanine Aminotransferase 22 U/L (6-50); Albumin Level 4.1 g/dL (3.5-5.1); Alkaline Phosphatase 87 U/L (38-126); Anion Gap 10 mmol/L (4-12); Aspartate Amino Transferase 30 U/L (17-59); Bilirubin,Total 0.7 mg/dL (0.2-1.3); Blood Urea Nitrogen 19 mg/dL (9-20); Calcium 8.4 mg/dL (8.4-10.2); Carbon Dioxide 23 mmol/L (22-30); Chloride 117 mmol/L (98-107); Estimated CRCL calculation 57 ml/min; Estimated Glomerular Filt Rate > 60; Glucose 102 mg/dL (65-110); Magnesium 2.3 mg/dL (1.6-2.3); Potassium 4.2 mmol/L (3.4-5.0); Sodium 150 mmol/L (137-145)
[2024-05-04 05:27] LABS: Anisocytosis 1+; Burr Cells 1+; Platelet Estimate Adequate (Adequate); Schistocytes None Seen
[2024-05-04] MEDS: ENOXAPARIN 30 MG/0.3 ML SYRINGE SUB-Q (09:47)
[2024-05-04] MEDS: DEXTROSE 5%/0.45% SOD CHL 1,000 ML 100 ML IV CONT (10:55)
--- NOTE | 2024-05-04 12:43 | PCDIET ---
Recommend to change tube feeding orders to 8pm to 8am for a 12hr period to provide 1080kcals, 45g protein and meet 75% of estimated needs, 100% of protein needs. Jevity 1.5 for formula.
--- NOTE | 2024-05-04 13:27 | PM.IMPN ---
Progress Note: A&P Assessment and Plan (1) Pyelonephritis: Code(s): N12 - Tubulo-interstitial nephritis, not specified as acute or chronic Status: Acute (2) RACQUEL (acute kidney injury): Code(s): N17.9 - Acute kidney failure, unspecified Status: Acute Plan 43-year-old male patient history of severe autism mostly nonverbal G-tube place, colostomy in place chronic indwelling Cardona catheter in place presented with altered mental status, found to have sepsis likely of urogenital source. Imaging suggests ascending urinary tract infection/pyelonephritis. 1. Acute pyelonephritis: Continue with ceftriaxone Follow blood culture Follow-up urine culture for Follow-up leukocytosis 2. RACQUEL: Resolved 3. Mild hypernatremia: She switch IV fluids with D5 Recheck BMP in a.m. 4. Mild tachycardia: Will add low-dose metoprolol 5. DVT prophylaxis: Lovenox 6. Code status: Full 7. Disposition: Pending improvement Time Spent With Patient Time with patient: 15 - 25 minutes Subjective Date/time seen: 05/04/24 13:27 Interval history: No acute events overnight Review of Systems Review of Systems: ROS unobtainable: Yes unobtainable due to medical condition and unobtainable due to mental status Exam Narrative: GENERAL: Chronically ill-appearing, no acute distress. HEAD: Normocephalic, atraumatic. ENT: Mucous membranes dry. CHEST: Clear to auscultation. No respiratory distress. HEART: tachycardic rate regular rhythm. ABDOMEN: Soft, tender to palpation right lower quadrant, mildly distended. Genitourinary: Cardona catheter in place, large chronic dehiscence at the urinary meatus no active bleeding or purulent drainage EXTREMITIES: Normal range of motion. No edema. SKIN: Warm, dry, no rash. NEURO: Awake and alert and at neurologic baseline. Objective Data Vital Signs Vital Signs: Vital Signs - 24 hr 05/03/24 13:29 05/03/24 15:30 05/03/24 16:31 Temperature 98.2 F 99.8 F H Pulse Rate 118 H 124 H Respiratory Rate 23 H 24 H Blood Pressure 162/100 H 155/82 H Pulse Oximetry 98 98 96 Oxygen Delivery Room Air Room Air Fraction of Inspired Oxygen 05/03/24 13:30 05/03/24 15:35 05/03/24 15:00 Temperature 101 F H 98.9 F Pulse Rate 124 H 127 H 129 H Respiratory Rate 20 24 H Blood Pressure 124/75 155/100 H Pulse Oximetry 96 96 Oxygen Delivery Fraction of Inspired Oxygen 05/03/24 14:30 05/03/24 16:00 05/03/24 18:49 Temperature 98.9 F 101 F H 100.1 F H Pulse Rate 118 H 115 H 124 H Respiratory Rate 23 H 20 20 Blood Pressure 149/92 H 126/88 115/54 L Pulse Oximetry 96 96 96 Oxygen Delivery Fraction of Inspired Oxygen 05/03/24 19:14 05/03/24 19:44 05/03/24 23:24 Temperature 98.6 F 98.1 F 98.5 F Pulse Rate 126 H 108 H 114 H Respiratory Rate 20 18 16 Blood Pressure 151/89 H 123/76 111/69 Pulse Oximetry 95 96 95 Oxygen Delivery Fraction of Inspired Oxygen 05/04/24 00:00 05/04/24 03:47 05/03/24 20:00 Temperature 98.7 F Pulse Rate 114 H 112 H 111 H Respiratory Rate 16 16 Blood Pressure 117/76 Pulse Oximetry 95 96 Oxygen Delivery Room Air Fraction of Inspired Oxygen 05/03/24 22:00 05/04/24 00:00 05/04/24 02:00 Temperature Pulse Rate 115 H 113 H 100 Respiratory Rate Blood Pressure Pulse Oximetry Oxygen Delivery Fraction of Inspired Oxygen 05/04/24 04:00 05/04/24 04:00 05/04/24 06:00 Temperature Pulse Rate 105 H 105 H 99 Respiratory Rate 16 Blood Pressure Pulse Oximetry 96 Oxygen Delivery Room Air Fraction of Inspired Oxygen 05/04/24 07:59 05/04/24 09:07 05/04/24 08:00 Temperature 98.4 F Pulse Rate 114 H 111 H Respiratory Rate 15 Blood Pressure 123/76 Pulse Oximetry 98 97 Oxygen Delivery Room Air Fraction of Inspired Oxygen 21 05/04/24 10:00 05/04/24 08:00 05/04/24 11:58 Temperature 99.3 F Pulse Rate 116 H 115 H Respiratory Rate 16 Blood Pressure 133/67 Pulse Oximetry 95 Oxygen Delivery Room Air Fraction of Inspired Oxygen 05/04/24 12:00 Temperature Pulse Rate 109 H Respiratory Rate Blood Pressure Pulse Oximetry Oxygen Delivery Fraction of Inspired Oxygen Intake/Output Intake/Output: Intake & Output 05/01/24 05/02/24 05/03/24 05/04/24 23:59 23:59 23:59 23:59 Intake Total 1550 0 Output Total 1000 1650 Balance 550 -1650 Meds/Results Medications: Active Medications Generic Name Dose Route Start Last Admin Trade Name Freq PRN Reason Stop Dose Admin Acetaminophen 650 mg 05/03/24 17:13 Acetaminophen 325 Mg Tablet FEED TUBE Q4H PRN Mild Pain (1-3) or Fever Enoxaparin Sodium 30 mg 05/04/24 09:00 05/04/24 09:47 Enoxaparin 30 Mg/0.3 Ml Syringe SUB-Q 30 mg DAILY FARZAD Administration Ceftriaxone Sodium 1 gm in 50 mls @ 100 mls/hr 05/04/24 16:00 Rocephin 1 Gm/Ns 50 Ml IVPB Q24H FARZAD Dextrose/Sodium Chloride 1,000 mls @ 100 mls/hr 05/04/24 10:00 05/04/24 10:55 Dextrose 5% Sodium Chloride 0.45% IV CONT 100 mls/hr .Q10H FARZAD Administration Ondansetron HCl 4 mg 05/03/24 17:13 Ondansetron Inj 4 Mg/2 Ml Vial IV PUSH Q4H PRN Nausea Radiology Results: ITS Impressions Chest X-Ray 05/03/24 15:25 IMPRESSION: No acute cardiopulmonary process. Abdomen/Pelvis CT 05/03/24 16:21 IMPRESSION: Mild esophagitis/gastritis. Worsening cystitis, with findings concerning for ascending infection. Increasing perinephric stranding/inflammation around the left kidney could represent pyelonephritis in the appropriate clinical context. Possible seminal vesiculitis. Cardona catheter balloon is not visualized and the bladder is moderately distended, correlate with tube function. Labs Labs: Laboratory Results - last 24 hr 05/03/24 05/03/24 05/03/24 15:10 15:36 18:50 WBC 27.5 H RBC 5.68 Hgb 15.3 Hct 47.7 MCV 84.0 MCH 26.9 MCHC 32.1 RDW 15.1 H Plt Count 305 MPV 8.9 Immature Gran % (Auto) Not Reportable Neut % (Auto) Not Reportable Lymph % (Auto) Not Reportable [place] % (Auto) Not Reportable Eos % (Auto) Not Reportable Baso % (Auto) Not Reportable Lymph # (Auto) Not Reportable [place] # (Auto) Not Reportable Eos # (Auto) Not Reportable Baso # (Auto) Not Reportable Abs Immat Gran (auto) Not Reportable Absolute Neuts (auto) Not Reportable Absolute Nucleated RBC Not Reportable Total Counted 100 Neutrophils % (Manual) 87 H Band Neutrophils % 1 Lymphocytes % (Manual) 4.0 L Monocytes % (Manual) 8 Nucleated RBC % Not Reportable Abs Neuts (Manual) 24.20 H Abs Lymphs (Manual) 1.10 Abs Monocytes (Manual) 2.20 H Nucleated RBCs 1 Platelet Estimate Adequate Anisocytosis 1+ [place] Cells Schistocytes None seen Sodium 142 Potassium 4.8 Chloride 108 H Carbon Dioxide 22 Anion Gap 12 BUN 32 H D Creatinine 1.50 H Estim Creat Clear Calc 39 Estimated GFR > 60 Glucose 142 H Lactic Acid 2.6 H 2.6 H Calcium 9.5 Magnesium Total Bilirubin 0.6 AST 39 ALT 28 Alkaline Phosphatase 103 Total Protein 9.0 H Albumin 4.8 Urine Color Red H Urine Appearance Cloudy H Urine pH 8.5 Ur Specific [place] 1.013 Urine Protein 3+ H Urine Glucose (UA) Negative Urine Ketones Trace H Ur Blood (Man) 3+ H Urine Nitrate Negative Urine Bilirubin Negative Urine Urobilinogen 0.2 Add Ur Microanalysis Reviewed Leukocyte Esterase Rfl 3+ H Urine RBC >100 H Urine WBC >100 H Ur Squamous Epith Cells Moderate Urine Bacteria 4+ Urine Casts >20 05/04/24 04:33 WBC 24.1 H RBC 5.06 Hgb 13.5 L Hct 44.0 MCV 87.0 MCH 26.7 MCHC 30.7 L RDW 15.4 H Plt Count 293 MPV 9.0 Immature Gran % (Auto) 0.9 H Neut % (Auto) 82.1 H Lymph % (Auto) 9.2 L [place] % (Auto) 7.6 Eos % (Auto) 0.0 Baso % (Auto) 0.2 Lymph # (Auto) 2.22 [place] # (Auto) 1.8 H Eos # (Auto) 0.0 Baso # (Auto) 0.1 Abs Immat Gran (auto) 0.21 H Absolute Neuts (auto) 19.8 H Absolute Nucleated RBC 0.000 Total Counted Neutrophils % (Manual) Band Neutrophils % Lymphocytes % (Manual) Monocytes % (Manual) Nucleated RBC % 0.0 Abs Neuts (Manual) Abs Lymphs (Manual) Abs Monocytes (Manual) Nucleated RBCs Platelet Estimate Adequate Anisocytosis 1+ [place] Cells 1+ Schistocytes None seen Sodium 150 H Potassium 4.2 Chloride 117 H Carbon Dioxide 23 Anion Gap 10 BUN 19 D Creatinine 1.00 Estim Creat Clear Calc 57 Estimated GFR > 60 Glucose 102 Lactic Acid Calcium 8.4 Magnesium 2.3 Total Bilirubin 0.7 AST 30 ALT 22 Alkaline Phosphatase 87 Total Protein 8.0 Albumin 4.1 Urine Color Urine Appearance Urine pH Ur Specific [place] Urine Protein Urine Glucose (UA) Urine Ketones Ur Blood (Man) Urine Nitrate Urine Bilirubin Urine Urobilinogen Add Ur Microanalysis Leukocyte Esterase Rfl Urine RBC Urine WBC Ur Squamous Epith Cells Urine Bacteria Urine Casts Quality VTE Prophylaxis VTE prophylaxis: pharmacologic ordered
[2024-05-04] MEDS: METOPROLOL TARTRATE 6.25 MG TABLET PO (21:42)
--- NOTE | 2024-05-04 23:03 | PC.NURSE ---
This patient, Ricky Swanson, was transferred to [[id number]] on 05/04/24 at 2304. Personal belongings sent with patient. Report given to [Treasure franco ]. Appropriate documentation sent with patient.
[2024-05-05] VITALS (9 sets, daily range): BP systolic 120–136; BP diastolic 71–90; PULSE 81–113; RESP 16–18; TEMP 36.7–37.1; O2SAT 92–95
[2024-05-05 05:52] LABS: Basophils Absolute Auto 0.1 K/mm3 (0.0-0.1); Basophils Percent Auto 0.5 % (0.2-1.2); Eosinophils Absolute Auto 0.1 K/mm3 (0-0.3); Hematocrit 56.3 % (42.0-52.0); Hemoglobin 15.7 g/dL (14.0-18.0); Immature Granulocyte Absolute 0.05 K/mm3 (0.00-0.031); Immature Granulocyte Percent A 0.4 % (0-0.5); Lymphocytes Absolute Auto 2.31 K/mm3 (0.9-3.2); Mean Corpuscular HGB Conc 27.9 g/dl (32-36); Mean Corpuscular Volume 96.7 fl (80-100); Mean Platelet Volume 9.2 fl (7.4-10.4); Monocytes Percent Auto 7.8 % (2.6-8.5); Neutrophils Absolute Auto 9.3 K/mm3 (1.3-6.7); Neutrophils Percent Auto 72.3 % (45.5-73.1); Platelet Count Result 220 k/mm3 (150-375); Red Blood Count 5.82 M/mm3 (4.6-6.20); Red Cell Distribution Width 16.4 % (11.5-14.5); White Blood Count 12.8 K/mm3 (4.5-10.0)
[2024-05-05 08:58] LABS: Alanine Aminotransferase 21 U/L (6-50); Albumin Level 4.2 g/dL (3.5-5.1); Alkaline Phosphatase 83 U/L (38-126); Anion Gap 8 mmol/L (4-12); Aspartate Amino Transferase 24 U/L (17-59); Bilirubin,Total 0.5 mg/dL (0.2-1.3); Blood Urea Nitrogen 12 mg/dL (9-20); Calcium 9.1 mg/dL (8.4-10.2); Carbon Dioxide 30 mmol/L (22-30); Chloride 114 mmol/L (98-107); Estimated CRCL calculation 74 ml/min; Estimated Glomerular Filt Rate > 60; Glucose 103 mg/dL (65-110); Magnesium 2.5 mg/dL (1.6-2.3); Potassium 3.6 mmol/L (3.4-5.0); Sodium 152 mmol/L (137-145)
--- NOTE | 2024-05-05 09:50 | PC.NURSE ---
call to pharm for missing dose of metoprolol, they will send
[2024-05-05] MEDS: ACETAMINOPHEN 325 MG TABLET 650 MG FEED TUBE (10:01)
[2024-05-05] MEDS: ENOXAPARIN 30 MG/0.3 ML SYRINGE SUB-Q (10:02)
[2024-05-05] MEDS: METOPROLOL TARTRATE 6.25 MG TABLET PO (10:03)
--- NOTE | 2024-05-05 12:00 | PM.IMPN ---
Progress Note: A&P Assessment and Plan (1) Pyelonephritis: Code(s): N12 - Tubulo-interstitial nephritis, not specified as acute or chronic Status: Acute (2) RACQUEL (acute kidney injury): Code(s): N17.9 - Acute kidney failure, unspecified Status: Acute Plan 43-year-old male patient history of severe autism mostly nonverbal G-tube place, colostomy in place chronic indwelling Cardona catheter in place presented with altered mental status, found to have sepsis likely of urogenital source. Imaging suggests ascending urinary tract infection/pyelonephritis. 1. Acute pyelonephritis: Continue with ceftriaxone Follow blood culture Urine culture growing Gram-negative rods Follow-up leukocytosis, improving 2. RACQUEL: Resolved 3. hypernatremia: Not sure why on following D5 based fluid was stopped last night Sodium levels 152 this morning Will start on D5W at 100 cc an hour Recheck BMP in a.m. 4. Mild tachycardia: Continue with low-dose metoprolol 5. DVT prophylaxis: Lovenox 6. Code status: Full 7. Disposition: Pending improvement Time Spent With Patient Time with patient: 15 - 25 minutes Subjective Date/time seen: 05/05/24 12:00 Interval history: No major change clinically, no acute events overnight Review of Systems Review of Systems: ROS unobtainable: Yes unobtainable due to medical condition and unobtainable due to mental status Exam Narrative: GENERAL: Chronically ill-appearing, no acute distress. HEAD: Normocephalic, atraumatic. ENT: Mucous membranes dry. CHEST: Clear to auscultation. No respiratory distress. HEART: tachycardic rate regular rhythm. ABDOMEN: Soft, tender to palpation right lower quadrant, mildly distended. Genitourinary: Cardona catheter in place, large chronic dehiscence at the urinary meatus no active bleeding or purulent drainage EXTREMITIES: Normal range of motion. No edema. SKIN: Warm, dry, no rash. NEURO: Awake and alert and at neurologic baseline. Objective Data Vital Signs Vital Signs: Vital Signs - 24 hr 05/04/24 16:10 05/04/24 16:00 05/04/24 20:25 Temperature 99.9 F H 99.6 F Pulse Rate 109 H 90 109 H Respiratory Rate 20 20 Blood Pressure 153/84 H 132/91 H Pulse Oximetry 95 95 Oxygen Delivery Fraction of Inspired Oxygen 05/04/24 21:42 05/04/24 20:00 05/04/24 20:00 Temperature Pulse Rate 78 107 H 107 H Respiratory Rate 20 Blood Pressure Pulse Oximetry 95 Oxygen Delivery Room Air Fraction of Inspired Oxygen 21 05/05/24 04:00 05/05/24 00:00 05/05/24 04:00 Temperature 98.1 F Pulse Rate 104 H 113 H 90 Respiratory Rate 18 Blood Pressure 121/79 Pulse Oximetry 92 Oxygen Delivery Fraction of Inspired Oxygen 05/05/24 10:03 Temperature Pulse Rate 102 H Respiratory Rate Blood Pressure Pulse Oximetry Oxygen Delivery Fraction of Inspired Oxygen Intake/Output Intake/Output: Intake & Output 05/02/24 05/03/24 05/04/24 05/05/24 23:59 23:59 23:59 23:59 Intake Total 1550 50 602 Output Total 1000 1975 700 Balance 550 -1925 -98 Meds/Results Medications: Active Medications Generic Name Dose Route Start Last Admin Trade Name Freq PRN Reason Stop Dose Admin Acetaminophen 650 mg 05/03/24 17:13 05/05/24 10:01 Acetaminophen 325 Mg Tablet FEED TUBE 650 mg Q4H PRN Administration Mild Pain (1-3) or Fever Enoxaparin Sodium 30 mg 05/04/24 09:00 05/05/24 10:02 Enoxaparin 30 Mg/0.3 Ml Syringe SUB-Q 30 mg DAILY FARZAD Administration Ceftriaxone Sodium 1 gm in 50 mls @ 100 mls/hr 05/04/24 16:00 05/04/24 17:30 Rocephin 1 Gm/Ns 50 Ml IVPB Infused Q24H FARZAD Infusion Dextrose 1,000 mls @ 100 mls/hr 05/05/24 12:00 Dextrose 5% 1,000 Ml IV CONT .Q10H FARZAD Metoprolol Tartrate 6.25 mg 05/04/24 21:00 05/05/24 10:03 Metoprolol Tartrate 6.25 Mg Tablet PO 6.25 mg Q12HR FARZAD Administration Ondansetron HCl 4 mg 05/03/24 17:13 Ondansetron Inj 4 Mg/2 Ml Vial IV PUSH Q4H PRN Nausea Radiology Results: ITS Impressions Chest X-Ray 05/03/24 15:25 IMPRESSION: No acute cardiopulmonary process. Abdomen/Pelvis CT 05/03/24 16:21 IMPRESSION: Mild esophagitis/gastritis. Worsening cystitis, with findings concerning for ascending infection. Increasing perinephric stranding/inflammation around the left kidney could represent pyelonephritis in the appropriate clinical context. Possible seminal vesiculitis. Cardona catheter balloon is not visualized and the bladder is moderately distended, correlate with tube function. Labs Labs: Laboratory Results - last 24 hr 05/05/24 05/05/24 05:36 08:24 WBC 12.8 H RBC 5.82 Hgb 15.7 Hct 56.3 H MCV 96.7 D MCH 27.0 MCHC 27.9 L RDW 16.4 H Plt Count 220 MPV 9.2 Immature Gran % (Auto) 0.4 Neut % (Auto) 72.3 Lymph % (Auto) 18.0 L [place] % (Auto) 7.8 Eos % (Auto) 1.0 Baso % (Auto) 0.5 Lymph # (Auto) 2.31 [place] # (Auto) 1.0 H Eos # (Auto) 0.1 Baso # (Auto) 0.1 Abs Immat Gran (auto) 0.05 H Absolute Neuts (auto) 9.3 H Absolute Nucleated RBC 0.000 Nucleated RBC % 0.0 Sodium 152 H Potassium 3.6 Chloride 114 H Carbon Dioxide 30 Anion Gap 8 BUN 12 D Creatinine 0.70 Estim Creat Clear Calc 74 Estimated GFR > 60 Glucose 103 Calcium 9.1 Magnesium 2.5 H Total Bilirubin 0.5 AST 24 ALT 21 Alkaline Phosphatase 83 Total Protein 8.0 Albumin 4.2 Quality VTE Prophylaxis VTE prophylaxis: pharmacologic ordered
[2024-05-05] MEDS: DEXTROSE 5% 1,000 ML 1,000 ML 100 ML IV CONT ×2 (12:11→22:55)
[2024-05-05] MEDS: METOPROLOL TARTRATE 12.5 MG TABLET PO (20:15)
[2024-05-06] VITALS: BP 128/83; PULSE 89; PULSE 94; RESP 18; TEMP 36.8; O2SAT 93
[2024-05-06 04:00] VITALS: BP 128/83; PULSE 105; PULSE 89; RESP 18; TEMP 36.8; O2SAT 93
[2024-05-06 07:05] LABS: Basophils Percent Auto 0.3 % (0.2-1.2); Eosinophils Absolute Auto 0.5 K/mm3 (0-0.3); Eosinophils Percent Auto 4.2 % (0-4.4); Hematocrit 51.3 % (42.0-52.0); Hemoglobin 15.5 g/dL (14.0-18.0); Immature Granulocyte Absolute 0.07 K/mm3 (0.00-0.031); Immature Granulocyte Percent A 0.6 % (0-0.5); Lymphocytes Absolute Auto 2.97 K/mm3 (0.9-3.2); Lymphocytes Percent Auto 24.4 % (18.3-44.2); Mean Corpuscular HGB Conc 30.2 g/dl (32-36); Mean Corpuscular Volume 89.2 fl (80-100); Monocytes Absolute Auto 0.8 K/mm3 (0.1-0.6); Monocytes Percent Auto 6.7 % (2.6-8.5); Neutrophils Absolute Auto 7.8 K/mm3 (1.3-6.7); Neutrophils Percent Auto 63.8 % (45.5-73.1); Red Blood Count 5.75 M/mm3 (4.6-6.20); Red Cell Distribution Width 15.7 % (11.5-14.5); White Blood Count 12.2 K/mm3 (4.5-10.0)
[2024-05-06 07:22] LABS: Platelet Estimate Adequate (Adequate); Schistocytes None Seen
[2024-05-06 08:00] VITALS: BP 127/85; PULSE 71; PULSE 78; RESP 18; TEMP 36.4; O2SAT 95
[2024-05-06 09:03] VITALS: PULSE 72
[2024-05-06] MEDS: METOPROLOL TARTRATE 12.5 MG TABLET PO (09:03)
[2024-05-06] MEDS: ENOXAPARIN 30 MG/0.3 ML SYRINGE SUB-Q (09:05)
[2024-05-06] MEDS: ACETAMINOPHEN 325 MG TABLET 650 MG FEED TUBE (09:05)
[2024-05-06] MEDS: DEXTROSE 5% 1,000 ML 1,000 ML 100 ML IV CONT (09:06)
[2024-05-06 12:00] VITALS: PULSE 66
[2024-05-06 13:20] LABS: Alanine Aminotransferase 28 U/L (6-50); Albumin Level 3.9 g/dL (3.5-5.1); Alkaline Phosphatase 66 U/L (38-126); Anion Gap 11 mmol/L (4-12); Aspartate Amino Transferase 118 U/L (17-59); Bilirubin,Total 0.8 mg/dL (0.2-1.3); Blood Urea Nitrogen 10 mg/dL (9-20); Calcium 8.8 mg/dL (8.4-10.2); Carbon Dioxide 24 mmol/L (22-30); Chloride 103 mmol/L (98-107); Estimated CRCL calculation 100 ml/min; Estimated Glomerular Filt Rate > 60; Glucose 94 mg/dL (65-110); Magnesium 1.7 mg/dL (1.6-2.3); Potassium 4.1 mmol/L (3.4-5.0); Sodium 138 mmol/L (137-145)
--- NOTE | 2024-05-06 13:45 | PM.DS ---
DS: Admitting Diagnosis Discharge Date 05/06/24 Admitting Diagnosis Acute pyelonephritis DS: Discharge Diagnosis Discharge Diagnosis (1) Pyelonephritis: Code(s): N12 - Tubulo-interstitial nephritis, not specified as acute or chronic Status: Acute (2) RACQUEL (acute kidney injury): Code(s): N17.9 - Acute kidney failure, unspecified Status: Acute DS: Summary Hospital Course Reason for hospitalization: Acute pyelonephritis Hypernatremia Hospital Course: 43-year-old male patient history of severe autism mostly nonverbal G-tube place, colostomy in place chronic indwelling Cardona catheter in place presented with altered mental status, found to have sepsis likely of urogenital source. Imaging suggests ascending urinary tract infection/pyelonephritis. Was started on ceftriaxone, urine culture grew Proteus, was transitioned to Augmentin for additional 10 days upon discharge. Also had hypernatremia, treated with D5W hypernatremia resolved prior to discharge. Also had RACQUEL upon presentation which resolved with IV fluid and supportive treatment. Discharge back to intermediate stable condition. Status at Discharge Functional status at discharge: bed bound Overall status at discharge: patient is progressing back to baseline Time Spent with Patient Time attestation: Total time spent providing and/or coordinating discharge services: Time spent: Greater than 30 minutes Exam Narrative: GENERAL: Chronically ill-appearing, no acute distress. HEAD: Normocephalic, atraumatic. ENT: Mucous membranes dry. CHEST: Clear to auscultation. No respiratory distress. HEART: tachycardic rate regular rhythm. ABDOMEN: Soft, tender to palpation right lower quadrant, mildly distended. Genitourinary: Cardona catheter in place, large chronic dehiscence at the urinary meatus no active bleeding or purulent drainage EXTREMITIES: Normal range of motion. No edema. SKIN: Warm, dry, no rash. NEURO: Awake and alert and at neurologic baseline. DS: Data Data Completed and Pending Labs on day of discharge: Labs from last 24 hours 05/06/24 05/06/24 11:09 06:40 WBC 12.2 H RBC 5.75 Hgb 15.5 Hct 51.3 MCV 89.2 D MCH 27.0 MCHC 30.2 L RDW 15.7 H Plt Count TNP MPV TNP Immature Gran % (Auto) 0.6 H Neut % (Auto) 63.8 Lymph % (Auto) 24.4 [place] % (Auto) 6.7 Eos % (Auto) 4.2 Baso % (Auto) 0.3 Lymph # (Auto) 2.97 [place] # (Auto) 0.8 H Eos # (Auto) 0.5 H Baso # (Auto) 0.0 Abs Immat Gran (auto) 0.07 H Absolute Neuts (auto) 7.8 H Absolute Nucleated RBC 0.000 Nucleated RBC % 0.0 Platelet Estimate Adequate Schistocytes None seen Sodium 138 Potassium 4.1 Chloride 103 Carbon Dioxide 24 Anion Gap 11 BUN 10 Creatinine 0.50 L Estim Creat Clear Calc 100 Estimated GFR > 60 Glucose 94 Calcium 8.8 Magnesium 1.7 Total Bilirubin 0.8 AST 118 H ALT 28 Alkaline Phosphatase 66 Total Protein 8.0 Albumin 3.9 Preliminary micro results at discharge 05/03/24 15:10 Blood Culture - Preliminary Blood 05/03/24 15:10 Blood Culture - Preliminary Blood Discharge Plan Discharge Attending physician on discharge: Chantelle Dumont Discharging Clinician: Chantelle Dumont Anticipated Discharge Date/Time: 05/06/24 13:44 Patient Disposition: [facility] Activity: as tolerated Diet: tube feeding Patient Instructions: Antibiotic Form Stand Alone Forms: General Discharge Information Follow-up/Referrals: Ty Maria MD [Primary Care Provider] - 2 Weeks Discharge Medications: New amoxicillin-pot clavulanate 875-125 mg tablet 1 tablet feeding tube Q12H Qty: 20 0RF Continued famotidine 20 mg Tablet 20 mg feeding tube Q12HR 30 Days Qty: 60 0RF ondansetron HCl 4 mg tablet 4 mg PO Q6H PRN (Reason: nausea and vomiting) Qty: 60 0RF Hold Instructions: Resume on 01/18/24. Hold while taking PO Levofloxacin sennosides-docusate sodium [Senna Plus] 8.6-50 mg Tablet 1 tablet PO BID polyethylene glycol 3350 [Miralax] 17 gram/dose Powder 17 g feeding tube DAILY Date of admission: 05/04/24 10:03 Primary Care Provider: Ty Maria Admitting Provider: Romain Garcia Attending physician on admission: Romain Garcia Condition: Improved
[2024-05-06 15:14] LABS: SARS-CoV-2 RNA PCR Negative (Negative)
[2024-05-06 16:00] VITALS: PULSE 71
== END 2024-05-06 17:43 | DRG 466 ==
LOC: ANHED 14:14 → ANHIMU 18:04 → ANH3MEDSUR 05-04 23:05
PROVIDERS: Nurse Practitioner; Admitting Provider Internal Medicine; Emergency Provider Emergency Medicine; PCP Hospitalist; Visit Provider Internal Medicine
DX: T83.511A Infection and inflammatory reaction due to indwelling urethral catheter, initial encounter (principal); A41.9 Sepsis, unspecified organism; N10 Acute pyelonephritis; N17.9 Acute kidney failure, unspecified; R00.0 Tachycardia, unspecified; F84.0 Autistic disorder; Z11.52 Encounter for screening for COVID-19; Z99.3 Dependence on wheelchair; Z93.1 Gastrostomy status; Z93.3 Colostomy status
CPT/HCPCS: 36415; 71045; 74177; 80053; 81001; 83605; 83735; 85025; 87040; 87077; 87086; 87088; 87186; 87635; 96361; 96365; 96372; 99285; A9270; G0378; J0696; J1650; J7030; J7070; Q9967

== ENCOUNTER 2024-06-05 01:28 | Observation (INO) | payer OTHER, SELFPAY ==
[2024-06-05] VITALS (9 sets, daily range): BP systolic 116–152; BP diastolic 65–110; PULSE 98–120; RESP 14–22; TEMP 36.7–36.9; O2SAT 91–98; BMI 19.1
--- NOTE | ~2024-06-05 | CT_ITS ---
EXAMINATION: CT chest abdomen pelvis w con DATE: 06/05/2024 13:06 INDICATION: Sepsis. Nausea and vomiting. TECHNIQUE: Computed tomography (CT) of the chest, abdomen, and pelvis was performed with 100 mL Omnip aque-350 intravenous contrast. Automated exposure control and iterative reconstruction technique were employed. The dose-length product was 442.35 mGy-cm. COMPARISON: CT dated 05/03/2024 and 11/01/2022 FINDINGS: CHEST CT: Emphysema with prominent bullous changes at the apices and along the anterior margins of the right up per lobe lobes and anterior margin of the entire left lung. Unchanged dependent atelectasis/scarring at the bilateral lower lobes. Unchanged mild discoid atelectasis/scarring in the right middle lobe. H eart size is normal. No pericardial effusion. Thoracic aorta is normal in caliber with no dissection. No pathologically enlarged thoracic lymphadenopathy. Small sliding-type hiatal hernia. There is dif fuse mild wall thickening of the distal esophagus which can be seen with esophagitis such as in the s etting of reflux. Bones are unremarkable. ABDOMEN/PELVIS CT: Percutaneous gastrostomy tube bulb in the body the stomach. 1 cm low-attenuation cyst versus hemangio ma in segment 5 of the liver. Gallbladder, spleen, pancreas, bilateral adrenal glands and right kidne y are normal. 1.6 cm left renal cyst. Status post partial colectomy with left lower quadrant and colo stomy and stool-filled Lowe's pouch in the deep pelvis. No bowel obstruction. There is prominent w all thickening in the bladder which is decompressed around a Cardona catheter. There is also prominent inflammatory stranding in the fat surrounding the bladder suggestive of cystitis. No free intraperito hortencia gas or fluid. No pathologically enlarged abdominal or pelvic lymphadenopathy. Mild thoracolumbar dextroscoliosis with mild spondylosis. IMPRESSION: 1. Prominent bladder wall thickening and surrounding inflammatory stranding suggestive of cystitis. 2. Small sliding-type hiatal hernia with wall thickening the distal esophagus suggesting esophagitis potentially related to reflux. 3. Severe bullous emphysema with chronic atelectasis/scarring at the bilateral lower lungs. Reviewed, dictated and finalized at location A. IMPRESSION: 1. Prominent bladder wall thickening and surrounding inflammatory stranding sug gestive of cystitis. 2. Small sliding-type hiatal hernia with wall thickening the distal esophagus s uggesting esophagitis potentially related to reflux. 3. Severe bullous emphysema with chronic atelectasis/scarring at the bilateral lower lungs.
--- NOTE | ~2024-06-05 | XR_ITS ---
EXAMINATION: XR abdomen/kub 1V DATE: 06/05/2024 11:25 INDICATION: Vomiting TECHNIQUE: A supine view of the abdomen was obtained. COMPARISON: CT dated 05/03/2024 FINDINGS: Percutaneous gastrostomy tube projects over the proximal body of the stomach. Left lower quadrant ost bridget. Moderate amount of stool scattered throughout the colon. No dilated loops of gas-filled bowel to suggest obstruction. Mild upper lumbar dextrocurvature with sacralized L5 segment. IMPRESSION: 1. No dilated bowel to suggest obstruction. Reviewed, dictated and finalized at location A.
--- NOTE | ~2024-06-05 | XR_ITS ---
EXAMINATION: XR chest 1V portable DATE: 06/05/2024 11:26 INDICATION: Sepsis TECHNIQUE: frontal view of the chest was obtained. COMPARISON: Chest radiograph dated 05/03/2024 FINDINGS: Again seen is emphysema with increased lucency and architectural distortion at the right apex and in the paramediastinal anterior lungs, left greater than right. There is mild bandlike discoid atelectas is/scarring at the right costophrenic angle. No other airspace opacities, pulmonary edema, pleural ef fusion or pneumothorax. Heart size is normal with unchanged mild rightward shift likely resulting fro m the left lung predominant emphysema. Scans gastrostomy tube injection of the proximal body of the s tomach. Visualized bones and soft tissues are unremarkable. IMPRESSION: 1. Emphysema with bandlike atelectasis/scarring at the lateral left lung base. Reviewed, dictated and finalized at location A.
--- NOTE | 2024-06-05 02:32 | ED.NAVMDI ---
HPI - Nausea/Vomiting/Diarrhea General Chief complaint: Nausea/Vomiting/Diarrhea Stated complaint: vomiting Time Seen by Provider: 06/05/24 01:45 History of Present Illness HPI Narrative: 43 old male presents to the emergency department for evaluation for nausea vomiting. Patient was transported emergency department by EMS. Upon arrival to the ED patient only had 1 episode emesis. Patient has a Cardona catheter that has a lot of sediment. Patient is nonverbal at baseline. Related Data Home Medications Medication Instructions Recorded Confirmed polyethylene glycol 3350 17 17 g feeding tube DAILY 01/09/24 06/05/24 gram/dose oral powder (Miralax) sennosides 8.6 mg-docusate sodium 1 tablet PO Q12H 01/09/24 06/05/24 50 mg tablet (Senna Plus) Allergies Allergy/AdvReac Type Severity Reaction Status Date / Time No Known Allergies Allergy Verified 05/03/24 15:35 Review of Systems Review of Systems: All systems reviewed & are unremarkable except as noted in HPI and below PMFSH Past Medical History Medical History Autism Cognitive developmental delay Surgical History Surgical History History of exploratory laparotomy (09/2022) Exploratory laparotomy with sigmoid colon resection and colostomy for ischemic bowel. History of gastrostomy tube placement Family History Family History Other Family history unknown Social History Social History Social History: Surrogate medical decision maker: Man Swanson, father or Samia Hale, sister. Code status: Full code. Smoking status: Never smoker Second hand tobacco smoke exposure: No Alcohol intake: never Substance use: never Substance use type: does not use Additional living arrangements comments: Resident at [facility]. Spiritual care concerns: No Exam Narrative: APPEARANCE: nontoxic-appearing HEAD: normocephalic, atraumatic. EYES: PERRLA/EOMI, conjunctivae clear. NOSE: Normal no drainage EARS:TMS clear with good light reflex. THROAT: Pharynx clear, no exudate. NECK: Supple. No adenopathy, no masses. RESPIRATORY: Airway patent, respirations nonlabored. Clear to auscultation bilaterally, no rales, rhonchi, wheezing. CARDIOVASCULAR: Regular rate and rhythm without murmurs rubs or gallops. ABDOMINAL: Soft, nontender, nondistended, normal bowel sounds MUSCULOSKELETAL: Moves all extremities. Strength/ROM intact, No edema, No calf tenderness. NEURO: Alert, nonverbal. Cranial nerves II through XII intact. grossly intact SKIN: Warm, dry. Normal Color Course Course Emergency Course: patient was admitted for pyelonephritis. Patient was initially started on Rocephin was switched to Merrem. Vital Signs Vital signs: Vital Signs Temperature 98.0 F 06/05/24 01:31 Pulse Rate 120 H 06/05/24 01:31 Respiratory Rate 16 06/05/24 01:31 Blood Pressure 152/110 H 06/05/24 01:31 Pulse Oximetry 98 06/05/24 01:31 Oxygen Delivery Room Air 06/05/24 01:31 Temperature 98.5 F 06/05/24 20:50 Pulse Rate 103 H 06/05/24 20:50 Respiratory Rate 16 06/05/24 20:50 Blood Pressure 126/65 06/05/24 20:50 Pulse Oximetry 91 06/05/24 20:50 Oxygen Delivery Room Air 06/05/24 21:00 Fraction of Inspired Oxygen 21 06/05/24 08:20 MDM - Nausea/Vomiting/Diarrhea MDM Narrative Medical decision making narrative: [age] old male that is nonverbal with autism presents emergency department for evaluation for nausea and vomiting. Patient did have emesis the emergency department that was not concerning for coffee-ground emesis. Patient's urine was concerning for a urinary tract infection, patient's Cardona catheter was exchanged. Patient was started on antibiotics in the emergency departme
[2024-06-05 02:33] LABS: Basophils Absolute Auto 0.1 K/mm3 (0.0-0.1); Basophils Percent Auto 0.2 % (0.2-1.2); Hematocrit 46.5 % (42.0-52.0); Hemoglobin 15.1 g/dL (14.0-18.0); Immature Granulocyte Absolute 0.15 K/mm3 (0.00-0.031); Immature Granulocyte Percent A 0.6 % (0-0.5); Lymphocytes Percent Auto 7.6 % (18.3-44.2); Mean Corpuscular HGB Conc 32.5 g/dl (32-36); Mean Corpuscular Hemoglobin 27.2 pg (26-34); Mean Corpuscular Volume 83.6 fl (80-100); Mean Platelet Volume 9.2 fl (7.4-10.4); Monocytes Absolute Auto 2.2 K/mm3 (0.1-0.6); Monocytes Percent Auto 8.7 % (2.6-8.5); Neutrophils Absolute Auto 20.6 K/mm3 (1.3-6.7); Neutrophils Percent Auto 82.9 % (45.5-73.1); Platelet Count Result 277 k/mm3 (150-375); Red Blood Count 5.56 M/mm3 (4.6-6.20); Red Cell Distribution Width 15.2 % (11.5-14.5); White Blood Count 24.9 K/mm3 (4.5-10.0)
[2024-06-05 02:43] LABS: INR 1.1; Prothrombin Time 14.4 Seconds (11.1-14.7)
[2024-06-05 02:44] LABS: Partial Thromboplastin Time 32.8 Seconds (22.3-36.8)
[2024-06-05 02:53] LABS: Alanine Aminotransferase 25 U/L (6-50); Albumin Level 5.2 g/dL (3.5-5.1); Alkaline Phosphatase 109 U/L (38-126); Anion Gap 16 mmol/L (4-12); Aspartate Amino Transferase 39 U/L (17-59); Blood Urea Nitrogen 14 mg/dL (9-20); Calcium 9.6 mg/dL (8.4-10.2); Carbon Dioxide 28 mmol/L (22-30); Chloride 99 mmol/L (98-107); Estimated CRCL calculation 80 ml/min; Estimated Glomerular Filt Rate > 60; Glucose 124 mg/dL (65-110); Potassium 4.3 mmol/L (3.4-5.0); Sodium 143 mmol/L (137-145)
[2024-06-05 02:54] LABS: Add Urine Microscopic? YES; Appearance Urine Turbid (Clear); Bacteria Urine 4+ /hpf; Bilirubin Urine Negative (Negative); Blood Urine 2+ (Negative); Color Urine Yellow (Yellow); Glucose Urine UA Negative (Negative); Ketones Urine 2+ mg/dL (Negative); Leukocyte Esterase Ur 3+ LEU/UL (Negative); Mucus Urine Present /lpf; Need Manual Microscopic Reviewed; Nitrate Urine Negative (Negative); Non Pathogenic Casts >20; Protein Urine 2+ mg/dL (Negative); Specific Grav Ur 1.019 (1.001-1.035); Squamous Epithelial Cell Urine Occasional /hpf (Few); Urobilinogen Urine 0.2 mg/dL (<2.0); WBC Urine >100 /hpf (0-3); pH Urine 8.5 (5.0-9.0)
[2024-06-05] MEDS: ONDANSETRON INJ 4 MG/2 ML VIAL IV PUSH ×2 (03:03→13:06)
[2024-06-05] MEDS: SODIUM CHLORIDE 0.9% IV 1,000 ML 999 ML IV CONT ×2 (03:04→03:12)
[2024-06-05] MEDS: METOCLOPRAMIDE HCL INJ 10 MG/2 ML VIAL IV PUSH (03:11)
--- NOTE | 2024-06-05 03:20 | PC.NURSE ---
original catheter that patient arrived from facility with was a temp lopez that the temp cord was cut off. it appears old as if not changed for a while .pt had lots of thick sediment lining the entire bag as well as the catheter tubing. New lopez placed with the assistance of 5 people.
--- NOTE | 2024-06-05 03:23 | PC.NURSE ---
pt had 1 large episode of green emesis at this time. pt bed linens changed and pt placed in new gown.
--- NOTE | 2024-06-05 04:40 | PC.NURSE ---
rocephin order d/c changed to meropenum
--- NOTE | 2024-06-05 04:41 | PC.NURSE ---
ok to not draw blood cultures per erp judi
[2024-06-05] MEDS: MEROPENEM 1 GM/NS 100 ML 1 GM/100 ML BAG IVPB ×3 (04:44→20:58)
[2024-06-05] MEDS: SODIUM CHLORIDE 0.9% IV 1,000 ML 125 ML IV CONT ×3 (05:25→20:58)
[2024-06-05 05:31] LABS: Reflex Lactic Acid Yes or No Add Lactic
--- NOTE | 2024-06-05 07:07 | PC.NURSE ---
second bag of NS infused, called for lab to draw lactic.
--- NOTE | 2024-06-05 07:54 | ADMGEN ---
This patient, Ricky Swanson, was admitted to [facility] Surg Room 302-01. Patient/family oriented to hospital policies and general routines including ID bracelet, bed and alarms, visiting hours, pain management, procedures, bathroom and other care routines, personal items, smoking policy, room service/diet, and visiting hours. Information on how to activate the Rapid Response Team has been discussed. Patient/Family are encouraged to report perceived risks to care and to ask questions if they do not understand what they are told or what they should do.
--- NOTE | 2024-06-05 09:17 | PC.NURSE ---
Per patient's detention records from [facility], patient is on Jevity 1.5 tube feedings 60mL/hr from 20:00-04:00. Flush with 100 mL water @ 20:00 and 04:00. May substitute with Isosource 1.5 until supply complete. Use 2 cartons of Isosource or Jevity per day. Diet orders: Regular solids/thin liquids: 1:1 assistance at meals, fortified pudding at breakfast and lunch, ice cream at supper, chocolate milk at every meal
--- NOTE | 2024-06-05 10:36 | PM.IMHP ---
H&P: HPI History of Present Illness Date/Time: 06/05/24 10:36 Chief Complaint: Vomiting Narrative: 43-year-old male alf resident severe autism mostly nonverbal G-tube in place colostomy in place chronic indwelling presented with 2 bouts of brown emesis. He was then transferred to the ER for further evaluation. He had history of bowel obstruction the past. Status taken from medical records. He received 2 L IV fluid. Leukocytosis noted in his laboratory evaluation at 24 K lactic acidosis of 3.0 analysis was positive for UTI COVID test was negative. He was admitted for further treatment. Review of Systems Review of Systems: ROS unobtainable: Yes unobtainable due to medical condition PMFSH Past Medical History Medical History Autism Cognitive developmental delay Surgical History Surgical History History of exploratory laparotomy (09/2022) Exploratory laparotomy with sigmoid colon resection and colostomy for ischemic bowel. History of gastrostomy tube placement Family History Family History Other Family history unknown Social History Social History Social History: Surrogate medical decision maker: Man Swanson, father or Samia Hale, sister. Code status: Full code. Smoking status: Never smoker Second hand tobacco smoke exposure: No Alcohol intake: never Substance use: never Substance use type: does not use Additional living arrangements comments: Resident at [facility]. Spiritual care concerns: No Meds Home Medications and Allergies Home Medications Medication Instructions Recorded Confirmed Type famotidine 20 mg tablet 20 mg feeding tube Q12HR 30 days 11/08/22 06/05/24 Rx #60 tabs ondansetron HCl 4 mg tablet 4 mg PO Q6H PRN nausea and 11/16/23 06/05/24 Rx vomiting #60 tabs polyethylene glycol 3350 17 17 g feeding tube DAILY 01/09/24 06/05/24 History gram/dose oral powder (Miralax) sennosides 8.6 mg-docusate sodium 1 tablet PO Q12H 01/09/24 06/05/24 History 50 mg tablet (Senna Plus) Allergies Allergy/AdvReac Type Severity Reaction Status Date / Time No Known Allergies Allergy Verified 05/03/24 15:35 Vital Signs Vital Signs - 24 hr 06/05/24 01:31 06/05/24 07:46 06/05/24 08:20 Temperature 98.0 F Pulse Rate 120 H 114 H Respiratory Rate 16 22 H Blood Pressure 152/110 H 126/88 Pulse Oximetry 98 96 97 Oxygen Delivery Room Air Room Air Fraction of Inspired Oxygen 21 06/05/24 08:00 06/05/24 10:03 Temperature 98.0 F Pulse Rate 115 H Respiratory Rate 14 Blood Pressure 132/86 Pulse Oximetry 98 Oxygen Delivery Room Air Fraction of Inspired Oxygen Exam Narrative: GENERAL: Chronically ill-appearing, no acute distress. Nonverbal HEAD: Normocephalic, atraumatic. ENT: Mucous membranes dry. CHEST: Clear to auscultation. No respiratory distress. HEART: tachycardic rate regular rhythm. ABDOMEN: Soft, nontender, mildly distended. Colostomy in-situ Genitourinary: Cardona catheter in place, EXTREMITIES: Normal range of motion. No edema. SKIN: Warm, dry, no rash. NEURO: Awake and alert and at neurologic baseline. H&P: Results Labs Labs: Short CBC 06/05/24 Range/Units 02:21 WBC 24.9 H (4.5-10.0) K/mm3 Hgb 15.1 (14.0-18.0) g/dL Hct 46.5 (42.0-52.0) % Plt Count 277 (150-375) k/mm3 BMP 06/05/24 02:21 Sodium 143 Potassium 4.3 Chloride 99 Carbon Dioxide 28 BUN 14 Creatinine 0.70 Glucose 124 H Calcium 9.6 Liver Function 06/05/24 Range/Units 02:21 Total Bilirubin 1.0 (0.2-1.3) mg/dL AST 39 (17-59) U/L ALT 25 (6-50) U/L Alkaline Phosphatase 109 (38-126) U/L Albumin 5.2 H (3.5-5.1) g/dL Urine 06/05/24 R
[2024-06-05] MEDS: LORazepam INJ (*CRX) 2 MG/ML VIAL 0.5 MG IV PUSH (13:06)
[2024-06-05] MEDS: SENNA/DOCUSATE SODIUM TABLET 1 TAB FEED TUBE ×2 (13:06→20:58)
[2024-06-05] MEDS: PANTOPRAZOLE SODIUM IV 40 MG VIAL IV PUSH (13:16)
--- NOTE | 2024-06-05 17:56 | PC.NURSE ---
Per Dr. Garcia, hold tube feedings tonight and regular diet orders 06/05/2024 r/t patient's nausea/vomiting. Provider also aware unable to get lab draws r/t patients agitation. IVP ativan ineffective. Ok to cancel blood culture and lactic acid orders. Re-evaluate resuming diet/tube feed tomorrow 06/06/2024.
[2024-06-05] MEDS: FAMOTIDINE 20 MG TABLET FEED TUBE (20:57)
[2024-06-06] VITALS (9 sets, daily range): BP systolic 127–138; BP diastolic 73–80; PULSE 85–113; RESP 13–16; TEMP 36.7–37.3; O2SAT 91–92
[2024-06-06] MEDS: SODIUM CHLORIDE 0.9% IV 1,000 ML 125 ML IV CONT ×2 (03:33→12:30)
[2024-06-06] MEDS: ONDANSETRON INJ 4 MG/2 ML VIAL IV PUSH ×3 (04:24→21:24)
[2024-06-06] MEDS: MEROPENEM 1 GM/NS 100 ML 1 GM/100 ML BAG IVPB ×3 (05:36→21:22)
[2024-06-06 07:12] LABS: Basophils Absolute Auto 0.1 K/mm3 (0.0-0.1); Basophils Percent Auto 0.3 % (0.2-1.2); Eosinophils Absolute Auto 0.1 K/mm3 (0-0.3); Eosinophils Percent Auto 0.3 % (0-4.4); Hematocrit 41.1 % (42.0-52.0); Hemoglobin 12.2 g/dL (14.0-18.0); Immature Granulocyte Absolute 0.09 K/mm3 (0.00-0.031); Immature Granulocyte Percent A 0.5 % (0-0.5); Lymphocytes Absolute Auto 2.89 K/mm3 (0.9-3.2); Lymphocytes Percent Auto 16.3 % (18.3-44.2); Mean Corpuscular HGB Conc 29.7 g/dl (32-36); Mean Corpuscular Hemoglobin 26.6 pg (26-34); Mean Corpuscular Volume 89.7 fl (80-100); Mean Platelet Volume 9.3 fl (7.4-10.4); Monocytes Absolute Auto 1.2 K/mm3 (0.1-0.6); Monocytes Percent Auto 6.6 % (2.6-8.5); Neutrophils Absolute Auto 13.5 K/mm3 (1.3-6.7); Platelet Count Result 231 k/mm3 (150-375); Red Blood Count 4.58 M/mm3 (4.6-6.20); Red Cell Distribution Width 15.4 % (11.5-14.5); White Blood Count 17.8 K/mm3 (4.5-10.0)
[2024-06-06 07:15] LABS: Alanine Aminotransferase 18 U/L (6-50); Alkaline Phosphatase 90 U/L (38-126); Anion Gap 17 mmol/L (4-12); Aspartate Amino Transferase 26 U/L (17-59); Blood Urea Nitrogen 7 mg/dL (9-20); Calcium 7.8 mg/dL (8.4-10.2); Carbon Dioxide 17 mmol/L (22-30); Chloride 107 mmol/L (98-107); Estimated CRCL calculation 80 ml/min; Estimated Glomerular Filt Rate > 60; Glucose 65 mg/dL (65-110); Magnesium 2.1 mg/dL (1.6-2.3); Potassium 3.7 mmol/L (3.4-5.0); Sodium 141 mmol/L (137-145)
[2024-06-06 07:46] LABS: Hypochromasia 1+; Platelet Estimate Adequate (Adequate); Schistocytes None Seen
[2024-06-06] MEDS: ENOXAPARIN 40 MG/0.4 ML SYRINGE SUB-Q (09:14)
[2024-06-06] MEDS: polyethylene glycoL 3350 17 GM POWD.PACK FEED TUBE (09:14)
[2024-06-06] MEDS: FAMOTIDINE 20 MG TABLET FEED TUBE ×2 (09:14→21:25)
[2024-06-06] MEDS: PANTOPRAZOLE SODIUM IV 40 MG VIAL IV PUSH (09:14)
[2024-06-06] MEDS: SENNA/DOCUSATE SODIUM TABLET 1 TAB FEED TUBE ×2 (12:30→21:25)
--- NOTE | 2024-06-06 13:38 | PM.IMPN ---
Progress Note: A&P Assessment and Plan (1) N&V (nausea and vomiting): Code(s): R11.2 - Nausea with vomiting, unspecified Status: Acute (2) Sepsis: Qualifiers: Sepsis acute organ dysfunction status: unspecified Sepsis type: sepsis due to unspecified organism Qualified Code(s): A41.9 - Sepsis, unspecified organism Code(s): A41.9 - Sepsis, unspecified organism Status: Acute (3) UTI (urinary tract infection): Qualifiers: Encounter type: initial encounter Indwelling urinary catheter type: indwelling urethral catheter Urinary tract infection type: catheter-associated UTI Qualified Code(s): T83.511A - Infection and inflammatory reaction due to indwelling urethral catheter, initial encounter; N39.0 - Urinary tract infection, site not specified Code(s): N39.0 - Urinary tract infection, site not specified Status: Acute (4) Lactic acidosis: Code(s): E87.20 - Acidosis, unspecified Status: Resolved (5) Chronic indwelling Cardona catheter: Code(s): Z97.8 - Presence of other specified devices Status: Chronic Plan 43-year-old male longterm resident severe autism mostly nonverbal G-tube in place colostomy in place chronic indwelling presented with 2 bouts of brown emesis. He was then transferred to the ER for further evaluation. He had history of bowel obstruction the past. Status taken from medical records. He received 2 L IV fluid. Leukocytosis noted in his laboratory evaluation at 24 K lactic acidosis of 3.0 urinalysis was positive for UTI COVID test was negative. He was admitted for further treatment. On examination looks benign Further workup for sepsis with tachycardia leukocytosis and lactic acidosis will be done with blood culture x2 which could not be obtained due to patient. He has been started on meropenem IV which will be continued culture to follow. IV fluid and resuscitation as ordered. Cardona catheter has been exchanged in the ER. Chest x-ray with no acute findings. CT chest abdomen pelvis reviewed no bowel obstruction. Diet and tube feeding resumed. Urine culture with Proteus mirabilis susceptibility pending. Leukocytosis improved today will continue to monitor DVT prophylaxis Lovenox Code status full code Subjective Date/time seen: 06/06/24 13:38 Interval history: Culture could not be obtained due to patient being agitated. Urine culture positive for Proteus. Sensitivity pending. Patient seems to be at baseline level mental status manzo Review of Systems Review of Systems: ROS unobtainable: Yes unobtainable due to medical condition Exam Narrative: GENERAL: Chronically ill-appearing, no acute distress. Nonverbal HEAD: Normocephalic, atraumatic. ENT: Mucous membranes dry. CHEST: Clear to auscultation. No respiratory distress. HEART: tachycardic rate regular rhythm. ABDOMEN: Soft, nontender, mildly distended. Colostomy in-situ Genitourinary: Cardona catheter in place, EXTREMITIES: Normal range of motion. No edema. SKIN: Warm, dry, no rash. NEURO: Awake and alert and at neurologic baseline. Objective Data Vital Signs Vital Signs: Vital Signs - 24 hr 06/05/24 14:00 06/05/24 16:00 06/05/24 20:50 Temperature 98.4 F 98.5 F Pulse Rate 110 H 107 H 103 H Respiratory Rate 16 16 Blood Pressure 116/73 126/65 Pulse Oximetry 96 91 Oxygen Delivery 06/05/24 20:00 06/05/24 21:00 06/06/24 00:00 Temperature Pulse Rate 101 H 95 Respiratory Rate Blood Pressure Pulse Oximetry Oxygen Delivery Room Air 06/06/24 04:00 06/06/24 05:54 Temperature 98.1 F Pulse Rate 113 H 111 H Respiratory Rate 13 Blood Pressure 138/80 Pulse Oximetry 91 Oxygen Delivery Intake/Output Intake/Output: Intake & Output 06/03/24 06/04/24 06/05/24 06/06/24 23:59 23:59 23:59 23:59 Intake Total 4047.9 1156.3 Output Total 750 1000 Balance 3297.9 156.3 Meds/Results Medications: Acti
[2024-06-06] MEDS: SODIUM CHLORIDE 0.9% IV 1,000 ML 75 ML IV CONT (21:28)
[2024-06-07] VITALS (7 sets, daily range): BP systolic 113–129; BP diastolic 70–79; PULSE 83–97; RESP 16–18; TEMP 36.8–37.2; O2SAT 93–94; BMI 19.1
[2024-06-07] MEDS: MEROPENEM 1 GM/NS 100 ML 1 GM/100 ML BAG IVPB (05:15)
[2024-06-07 06:28] LABS: Basophils Absolute Auto 0.1 K/mm3 (0.0-0.1); Basophils Percent Auto 0.4 % (0.2-1.2); Eosinophils Absolute Auto 0.2 K/mm3 (0-0.3); Eosinophils Percent Auto 1.2 % (0-4.4); Hematocrit 45.1 % (42.0-52.0); Hemoglobin 14.2 g/dL (14.0-18.0); Immature Granulocyte Absolute 0.12 K/mm3 (0.00-0.031); Immature Granulocyte Percent A 0.9 % (0-0.5); Lymphocytes Percent Auto 13.5 % (18.3-44.2); Mean Corpuscular HGB Conc 31.5 g/dl (32-36); Mean Corpuscular Hemoglobin 27.4 pg (26-34); Mean Corpuscular Volume 87.1 fl (80-100); Mean Platelet Volume 9.2 fl (7.4-10.4); Monocytes Percent Auto 6.8 % (2.6-8.5); Neutrophils Absolute Auto 10.9 K/mm3 (1.3-6.7); Neutrophils Percent Auto 77.2 % (45.5-73.1); Platelet Count Result 218 k/mm3 (150-375); Red Blood Count 5.18 M/mm3 (4.6-6.20); Red Cell Distribution Width 14.7 % (11.5-14.5); White Blood Count 14.1 K/mm3 (4.5-10.0)
[2024-06-07 06:52] LABS: Alanine Aminotransferase 17 U/L (6-50); Albumin Level 4.3 g/dL (3.5-5.1); Alkaline Phosphatase 83 U/L (38-126); Anion Gap 19 mmol/L (4-12); Aspartate Amino Transferase 30 U/L (17-59); Bilirubin,Total 1.7 mg/dL (0.2-1.3); Blood Urea Nitrogen 4 mg/dL (9-20); Calcium 8.2 mg/dL (8.4-10.2); Carbon Dioxide 16 mmol/L (22-30); Chloride 102 mmol/L (98-107); Estimated CRCL calculation 109 ml/min; Estimated Glomerular Filt Rate > 60; Glucose 58 mg/dL (65-110); Magnesium 2.1 mg/dL (1.6-2.3); Potassium 4.1 mmol/L (3.4-5.0); Sodium 137 mmol/L (137-145)
[2024-06-07] MEDS: DEXTROSE 50% 25 GM/50 ML SYRINGE IV PUSH (07:06)
[2024-06-07 08:03] LABS: Glucose Point of Care 143 mg/dl (65-105)
[2024-06-07] MEDS: FAMOTIDINE 20 MG TABLET FEED TUBE ×2 (09:57→20:59)
[2024-06-07] MEDS: polyethylene glycoL 3350 17 GM POWD.PACK FEED TUBE (09:57)
--- NOTE | 2024-06-07 09:57 | PC.NURSE ---
Jevity 1.5 started @ 20cc/hr. 30cc flush Q4hr per Dr Garcia. Awaiting audio visual coordinator to come evaluate patient, will adjust cont. feedings as needed
[2024-06-07] MEDS: ENOXAPARIN 40 MG/0.4 ML SYRINGE SUB-Q (10:00)
[2024-06-07] MEDS: PANTOPRAZOLE SODIUM IV 40 MG VIAL IV PUSH (10:00)
[2024-06-07 11:54] LABS: Glucose Point of Care 79 mg/dl (65-105)
--- NOTE | 2024-06-07 12:15 | PCSTNOTE ---
Please refer to the Bedside Swallow Evaluation in the EMR. Please note, silent aspiration cannot be ruled out at bedside.
[2024-06-07] MEDS: SENNA/DOCUSATE SODIUM TABLET 1 TAB FEED TUBE ×2 (13:07→20:59)
--- NOTE | 2024-06-07 14:41 | PM.IMPN ---
Progress Note: A&P Assessment and Plan (1) N&V (nausea and vomiting): Code(s): R11.2 - Nausea with vomiting, unspecified Status: Acute (2) Sepsis: Qualifiers: Sepsis acute organ dysfunction status: unspecified Sepsis type: sepsis due to unspecified organism Qualified Code(s): A41.9 - Sepsis, unspecified organism Code(s): A41.9 - Sepsis, unspecified organism Status: Acute (3) UTI (urinary tract infection): Qualifiers: Encounter type: initial encounter Indwelling urinary catheter type: indwelling urethral catheter Urinary tract infection type: catheter-associated UTI Qualified Code(s): T83.511A - Infection and inflammatory reaction due to indwelling urethral catheter, initial encounter; N39.0 - Urinary tract infection, site not specified Code(s): N39.0 - Urinary tract infection, site not specified Status: Acute (4) Lactic acidosis: Code(s): E87.20 - Acidosis, unspecified Status: Resolved (5) Chronic indwelling Cardona catheter: Code(s): Z97.8 - Presence of other specified devices Status: Chronic Plan 43-year-old male [facility] resident severe autism mostly nonverbal G-tube in place colostomy in place chronic indwelling presented with 2 bouts of brown emesis. He was then transferred to the ER for further evaluation. He had history of bowel obstruction the past. Status taken from medical records. He received 2 L IV fluid. Leukocytosis noted in his laboratory evaluation at 24 K lactic acidosis of 3.0 urinalysis was positive for UTI COVID test was negative. He was admitted for further treatment. On examination looks benign Further workup for sepsis with tachycardia leukocytosis and lactic acidosis will be done with blood culture x2 which could not be obtained due to patient. He has been started on meropenem IV which will be continued culture to follow. IV fluid and resuscitation as ordered. Cardona catheter has been exchanged in the ER. Chest x-ray with no acute findings. CT chest abdomen pelvis reviewed no bowel obstruction. Diet and tube feeding resumed. Urine culture with Proteus mirabilis susceptibility susceptible to Augmentin. Leukocytosis continues to improve will continue to monitor DVT prophylaxis Lovenox. Speech to see and did well. Will resume regular oral diet and tube feed at night Code status full code Subjective Date/time seen: 06/07/24 14:41 Interval history: Patient was hypoglycemic this a.m.. Hypoglycemic protocol was started no other events reported WBC count improving. Review of Systems Review of Systems: ROS unobtainable: Yes unobtainable due to medical condition Exam Narrative: GENERAL: Chronically ill-appearing, no acute distress. Nonverbal HEAD: Normocephalic, atraumatic. ENT: Mucous membranes dry. CHEST: Clear to auscultation. No respiratory distress. HEART: tachycardic rate regular rhythm. ABDOMEN: Soft, nontender, mildly distended. Colostomy in-situ Genitourinary: Cardona catheter in place, EXTREMITIES: Normal range of motion. No edema. SKIN: Warm, dry, no rash. NEURO: Awake and alert and at neurologic baseline. Objective Data Vital Signs Vital Signs: Vital Signs - 24 hr 06/06/24 16:00 06/06/24 20:01 06/06/24 21:33 Temperature 99.2 F Pulse Rate 97 98 85 Respiratory Rate 16 Blood Pressure 127/78 Pulse Oximetry 92 Oxygen Delivery 06/06/24 21:33 06/07/24 00:00 06/07/24 04:00 Temperature Pulse Rate 92 83 Respiratory Rate Blood Pressure Pulse Oximetry Oxygen Delivery Room Air 06/07/24 06:00 06/07/24 08:00 06/07/24 12:00 Temperature 98.9 F Pulse Rate 96 96 92 Respiratory Rate 16 Blood Pressure 129/79 Pulse Oximetry 94 Oxygen Delivery 06/07/24 14:00 Temperature 98.6 F Pulse Rate 94 Respiratory Rate 16 Blood Pressure 113/77 Pulse Oximetry 94 Oxygen Delivery Intake/Output Intake/Output: Intake & Output
[2024-06-07] MEDS: AMOXICILLIN/CLAVULANATE K 875-125 MG TAB 1 TABLET BY MOUTH (20:59)
[2024-06-08 00:05] LABS: Glucose Point of Care 118 mg/dl (65-105)
[2024-06-08 05:47] VITALS: BP 109/79; PULSE 88; RESP 16; TEMP 37.1; O2SAT 90
[2024-06-08 05:47] LABS: Glucose Point of Care 118 mg/dl (65-105)
[2024-06-08 06:45] LABS: Basophils Percent Auto 0.4 % (0.2-1.2); Eosinophils Absolute Auto 0.3 K/mm3 (0-0.3); Eosinophils Percent Auto 2.3 % (0-4.4); Hematocrit 46.1 % (42.0-52.0); Hemoglobin 14.9 g/dL (14.0-18.0); Immature Granulocyte Absolute 0.06 K/mm3 (0.00-0.031); Immature Granulocyte Percent A 0.5 % (0-0.5); Lymphocytes Absolute Auto 2.01 K/mm3 (0.9-3.2); Lymphocytes Percent Auto 18.1 % (18.3-44.2); Mean Corpuscular HGB Conc 32.3 g/dl (32-36); Mean Corpuscular Hemoglobin 27.1 pg (26-34); Mean Platelet Volume 9.3 fl (7.4-10.4); Neutrophils Absolute Auto 7.7 K/mm3 (1.3-6.7); Neutrophils Percent Auto 69.7 % (45.5-73.1); Platelet Count Result 223 k/mm3 (150-375); Red Blood Count 5.49 M/mm3 (4.6-6.20); Red Cell Distribution Width 14.5 % (11.5-14.5); White Blood Count 11.1 K/mm3 (4.5-10.0)
[2024-06-08 07:05] LABS: Alanine Aminotransferase 14 U/L (6-50); Albumin Level 4.2 g/dL (3.5-5.1); Alkaline Phosphatase 84 U/L (38-126); Anion Gap 10 mmol/L (4-12); Aspartate Amino Transferase 26 U/L (17-59); Bilirubin,Total 1.3 mg/dL (0.2-1.3); Blood Urea Nitrogen 4 mg/dL (9-20); Calcium 8.4 mg/dL (8.4-10.2); Carbon Dioxide 27 mmol/L (22-30); Chloride 99 mmol/L (98-107); Estimated CRCL calculation 109 ml/min; Estimated Glomerular Filt Rate > 60; Glucose 104 mg/dL (65-110); Magnesium 2.2 mg/dL (1.6-2.3); Potassium 4.4 mmol/L (3.4-5.0); Sodium 136 mmol/L (137-145)
[2024-06-08] MEDS: PANTOPRAZOLE 40 MG TABLET PO (08:27)
[2024-06-08] MEDS: AMOXICILLIN/CLAVULANATE K 875-125 MG TAB 1 TABLET BY MOUTH (08:27)
[2024-06-08] MEDS: FAMOTIDINE 20 MG TABLET FEED TUBE (08:27)
--- NOTE | 2024-06-08 08:36 | PC.NURSE ---
Patients medications (excluding Protonix) were crushed this morning and mixed with apple sauce, patient ate about half of the med/applesauce before he began pocketing and not swallowing. not all of the medications were taken this morning.
[2024-06-08] MEDS: polyethylene glycoL 3350 17 GM POWD.PACK FEED TUBE (10:09)
[2024-06-08 12:07] LABS: Glucose Point of Care 93 mg/dl (65-105)
--- NOTE | 2024-06-08 12:36 | PM.DS ---
DS: Admitting Diagnosis Discharge Date 06/08/2024 Admitting Diagnosis Sepsis DS: Discharge Diagnosis Discharge Diagnosis (1) N&V (nausea and vomiting): Code(s): R11.2 - Nausea with vomiting, unspecified Status: Acute (2) Sepsis: Qualifiers: Sepsis acute organ dysfunction status: unspecified Sepsis type: sepsis due to unspecified organism Qualified Code(s): A41.9 - Sepsis, unspecified organism Code(s): A41.9 - Sepsis, unspecified organism Status: Acute (3) UTI (urinary tract infection): Qualifiers: Encounter type: initial encounter Indwelling urinary catheter type: indwelling urethral catheter Urinary tract infection type: catheter-associated UTI Qualified Code(s): T83.511A - Infection and inflammatory reaction due to indwelling urethral catheter, initial encounter; N39.0 - Urinary tract infection, site not specified Code(s): N39.0 - Urinary tract infection, site not specified Status: Acute (4) Lactic acidosis: Code(s): E87.20 - Acidosis, unspecified Status: Resolved (5) Chronic indwelling Cardona catheter: Code(s): Z97.8 - Presence of other specified devices Status: Chronic DS: Summary Hospital Course Hospital Course: 43-year-old male long term resident severe autism mostly nonverbal G-tube in place colostomy in place chronic indwelling presented with 2 bouts of brown emesis. He was then transferred to the ER for further evaluation. He had history of bowel obstruction the past. History taken from medical records. He received 2 L IV fluid. Leukocytosis noted in his laboratory evaluation at 24 K lactic acidosis of 3.0 urinalysis was positive for UTI COVID test was negative. He was admitted for further treatment. On examination his abdomen looks benign. Further workup for sepsis with tachycardia leukocytosis and lactic acidosis will be done with blood culture x2 which could not be obtained due to patient agitation. He has been started on meropenem IV which will be continued culture to follow. IV fluid and resuscitation as ordered. Tachycardia improved and sepsis resolved. Cardona catheter has been exchanged in the ER. Chest x-ray with no acute findings. CT chest abdomen pelvis reviewed no bowel obstruction. Showed findings of GERD. Diet and tube feeding resumed. Urine culture with Proteus mirabilis susceptibility susceptible to Augmentin. Leukocytosis continues to improve will continue to monitor. He will continue Augmentin at discharge DVT prophylaxis Lovenox. Speech to see and did well. Will resume regular oral diet and tube feed at night Code status full code Time Spent with Patient Time attestation: Total time spent providing and/or coordinating discharge services: 35 minutes Exam Narrative: GENERAL: Chronically ill-appearing, no acute distress. Nonverbal HEAD: Normocephalic, atraumatic. ENT: Mucous membranes dry. CHEST: Clear to auscultation. No respiratory distress. HEART: tachycardic rate regular rhythm. ABDOMEN: Soft, nontender, mildly distended. Colostomy in-situ Genitourinary: Cardona catheter in place, EXTREMITIES: Normal range of motion. No edema. SKIN: Warm, dry, no rash. NEURO: Awake and alert and at neurologic baseline. DS: Data Data Completed and Pending Labs on day of discharge: Labs from last 24 hours 06/08/24 06/08/24 06/08/24 12:04 05:44 04:30 WBC 11.1 H RBC 5.49 Hgb 14.9 Hct 46.1 MCV 84.0 MCH 27.1 MCHC 32.3 RDW 14.5 Plt Count 223 MPV 9.3 Immature Gran % (Auto) 0.5 Neut % (Auto) 69.7 Lymph % (Auto) 18.1 L [place] % (Auto) 9.0 H Eos % (Auto) 2.3 Baso % (Auto) 0.4 Lymph # (Auto) 2.01 [place] # (Auto) 1.0 H Eos # (Auto) 0.3 Baso # (Auto) 0.0 Abs Immat Gran (auto) 0.06 H Absolute Neuts (auto) 7.7 H Absolute Nucleated RBC 0.000 Nucleated RBC % 0.0 Sodium 136 L Potassium 4.4 Chloride 99 Carbon Di
[2024-06-08 14:00] VITALS: BP 112/76; PULSE 83; RESP 16; TEMP 36.6; O2SAT 93
== END 2024-06-08 15:20 ==
LOC: ANHED 02:58 → ANH3MEDSUR 06-06 14:56
PROVIDERS: Admitting Provider Internal Medicine; Emergency Provider Emergency Medicine; PCP Internal Medicine; Visit Provider Internal Medicine
DX: A41.9 Sepsis, unspecified organism (principal); N39.0 Urinary tract infection, site not specified; E87.20 Acidosis, unspecified; T83.511A Infection and inflammatory reaction due to indwelling urethral catheter, initial encounter; R11.2 Nausea with vomiting, unspecified; F84.0 Autistic disorder; Z90.49 Acquired absence of other specified parts of digestive tract; Z93.3 Colostomy status; Z93.1 Gastrostomy status; Z20.822 Contact with and (suspected) exposure to COVID-19
CPT/HCPCS: 36415; 71045; 71260; 74018; 74177; 80053; 81001; 82948; 83605; 83735; 85025; 85610; 85730; 87077; 87086; 87186; 92610; 96361; 96365; 96366; 96375; 96376; 99285; A9270; G0378; G0379; J1650; J2060; J2185; J2405; J2470; J2765; J7030; Q9967

== ENCOUNTER 2024-07-01 01:50 | Inpatient (IN) | payer OTHER, SELFPAY ==
[2024-07-01] VITALS (18 sets, daily range): BP systolic 93–159; BP diastolic 59–97; PULSE 108–147; RESP 12–20; TEMP 36.3–38.8; O2SAT 93–100; BMI 18.9
--- NOTE | ~2024-07-01 | CT_ITS ---
CT of the Abdomen and Pelvis: Indication: Abdominal pain Technique: 2.5 mm axial scans were obtained through the abdomen and pelvis following intravenous adm inistration of 62 cc of Omnipaque 350. Dose reduction technique was used on this scan by utilizing au tomated exposure control and iterative reconstruction technique. The dose-length product (DLP) was 20 4.72 mGy-cm. COMPARISON: 06/05/2024 Findings: Scans through the lung bases demonstrates stable extensive bullous change at the lingula a nd right middle lobe. There is mild bibasilar atelectatic change.. The liver, spleen, pancreas, gallbladder, and adrenal glands are within normal limits. There is mild bilateral hydroureteronephrosis diffusely. No radiopaque stones identified. No evidence of aortic ane urysm. No bowel obstruction or bowel wall thickening. Percutaneous gastrostomy tube in place. Status post di stal partial colectomy with left lower quadrant ostomy present. There is no evidence to suggest acute appendicitis. Images through the pelvis were performed. Probable diffuse urinary bladder wall thickening despite de compression with Cardona catheter. There is mild perivesical inflammatory stranding. Prostate gland enl arged. No ascites. A single borderline enlarged left external iliac/common femoral lymph node measuri ng 1 cm short axis (axial image 158). Impression: Findings most compatible cystitis, as detailed above. Correlate with urinalysis. Mild bilateral hydroureteronephrosis. Single borderline enlarged left external iliac/common femoral lymph node, as above, nonspecific, sarabjit lar to prior exam. Severe bullous emphysema at the lung bases, as detailed above. Reviewed, dictated [place] [facility] [place] Impression: Findings most compatible cystitis, as detailed above. Correlate with urinalysis . Mild bilateral hydroureteronephrosis. Single borderline enlarged left external iliac/common femoral lymph node, as ab ove, nonspecific, similar to prior exam. Severe bullous emphysema at the lung bases, as detailed above.
--- NOTE | ~2024-07-01 | XR_ITS ---
EXAMINATION: XR chest 1V portable DATE: 07/01/2024 08:15 INDICATION: Leukocytosis. TECHNIQUE: A single frontal view of the chest was obtained. COMPARISON: CT abdomen and pelvis 07/01/2024, chest single view 06/05/2024 FINDINGS: There is mild atelectasis in right lower lung zone. No pleural effusion or pneumothorax. Th e heart size is normal. IMPRESSION: 1. Mild atelectasis in right lower lung zone. Reviewed, dictated and finalized at location A.
--- NOTE | ~2024-07-01 | XR_ITS ---
EXAMINATION: XR chest 1V portable DATE: 07/03/2024 12:22 INDICATION: Leukocytosis. TECHNIQUE: A single frontal view of the chest was obtained. COMPARISON: Chest single view 07/01/2024 FINDINGS: There are lucencies in the lungs, consistent with emphysema. There are airspace opacities i n the mid and lower lung zones, right worse than left. No pleural effusion or pneumothorax. The heart size is normal. IMPRESSION: 1. Emphysema. 2. Airspace opacities in the mid and lower lung zones, right worse than left, likely atelectasis. Reviewed, dictated and finalized at location A. IMPRESSION: 1. Emphysema. 2. Airspace opacities in the mid and lower lung zones, right worse than left, l ikely atelectasis.
[2024-07-01 02:41] LABS: Hematocrit 47.6 % (42.0-52.0); Hemoglobin 15.5 g/dL (14.0-18.0); Mean Corpuscular HGB Conc 32.6 g/dl (32-36); Mean Corpuscular Hemoglobin 27.9 pg (26-34); Mean Corpuscular Volume 85.6 fl (80-100); Mean Platelet Volume 8.7 fl (7.4-10.4); Platelet Count Result 309 k/mm3 (150-375); Red Blood Count 5.56 M/mm3 (4.6-6.20); Red Cell Distribution Width 15.3 % (11.5-14.5); White Blood Count 34.4 K/mm3 (4.5-10.0)
[2024-07-01 03:05] LABS: Band Neutrophils Percent 5 % (0-6); Lymphocytes Absolute Manual 1.72 K/mm3 (1.1-4.5); Monocytes Absolute Manual 0.68 K/mm3 (0.1-0.90); Monocytes Percent Manual 2 % (3-9); Neutrophils Absolute Manual 31.99 K/mm3 (1.3-6.7); Neutrophils Percent Manual 88 % (46-73); Total Cells Counted 100
[2024-07-01 03:06] LABS: Acanthocytes 1+; Anisocytosis 1+; Ovalocytes 1+; Platelet Estimate Adequate (Adequate); Schistocytes Rare
[2024-07-01 03:09] LABS: Lactic Acid Reflex 3.3 mmol/L (0.7-2.0)
[2024-07-01 03:15] LABS: Procalcitonin 0.7 ng/mL
[2024-07-01 03:18] LABS: Alanine Aminotransferase 22 U/L (6-50); Albumin Level 4.9 g/dL (3.5-5.1); Alkaline Phosphatase 105 U/L (38-126); Anion Gap 21 mmol/L (4-12); Aspartate Amino Transferase 30 U/L (17-59); Blood Urea Nitrogen 23 mg/dL (9-20); Calcium 9.4 mg/dL (8.4-10.2); Carbon Dioxide 19 mmol/L (22-30); Chloride 101 mmol/L (98-107); Estimated CRCL calculation 36 ml/min; Estimated Glomerular Filt Rate 53; Glucose 154 mg/dL (65-110); Lipase 46 U/L (23-300); Magnesium 1.8 mg/dL (1.6-2.3); Potassium 4.8 mmol/L (3.4-5.0); Sodium 141 mmol/L (137-145)
[2024-07-01 03:24] LABS: Influenza A QL RT-PCR Negative (Negative); Influenza B QL RT-PCR Negative (Negative); RSV RNA, RT-PCR Negative (Negative); SARS-CoV-2 RNA PCR Negative (Negative)
[2024-07-01 04:14] LABS: Add Urine Microscopic? YES; Appearance Urine Turbid (Clear); Bacteria Urine 4+ /hpf; Bilirubin Urine Negative (Negative); Blood Urine 3+ (Negative); Color Urine Yellow (Yellow); Glucose Urine UA Negative (Negative); Ketones Urine 2+ mg/dL (Negative); Leukocyte Esterase Ur 3+ LEU/UL (Negative); Need Manual Microscopic Reviewed; Nitrate Urine Negative (Negative); Non Pathogenic Casts >20; Protein Urine 3+ mg/dL (Negative); RBC Urine >100 /hpf (0-2); Specific Grav Ur 1.015 (1.001-1.035); Squamous Epithelial Cell Urine None Seen /hpf (Few); Urobilinogen Urine 0.2 mg/dL (<2.0); WBC Urine >100 /hpf (0-3); pH Urine 7.5 (5.0-9.0)
[2024-07-01 04:42] LABS: INR 1.2; Prothrombin Time 15.4 Seconds (11.1-14.7)
[2024-07-01 04:43] LABS: Partial Thromboplastin Time 32.6 Seconds (22.3-36.8)
[2024-07-01] MEDS: LORazepam INJ (*CRX) 2 MG/ML VIAL 1 MG IV PUSH (04:45)
--- NOTE | 2024-07-01 05:21 | ED.GENADULT ---
HPI - General Adult General Chief complaint: Nausea/Vomiting/Diarrhea Stated complaint: gi bleed Time Seen by Provider: 07/01/24 01:53 History of Present Illness HPI narrative: Patient is a 43-year-old gentleman who presents emergency department from [facility] with nausea vomiting. The patient has history of autism and is nonverbal at baseline of the patient has diverting colostomy and the staff noticed what appeared to be dark colored vomitus. The patient has had no blood in his ostomy output. Patient was febrile upon arrival Related Data Home Medications Medication Instructions Recorded Confirmed polyethylene glycol 3350 17 17 g feeding tube DAILY 01/09/24 06/05/24 gram/dose oral powder (Miralax) sennosides 8.6 mg-docusate sodium 1 tablet PO Q12H 01/09/24 06/05/24 50 mg tablet (Senna Plus) Allergies Allergy/AdvReac Type Severity Reaction Status Date / Time No Known Allergies Allergy Verified 05/03/24 15:35 Review of Systems Review of Systems: A 10 system review of systems was completed on the patient and is negative except for what is stated in the HPI. Nursing and ancillary documentation was reviewed. [facility] Past Medical History Medical History Autism Cognitive developmental delay Surgical History Surgical History History of exploratory laparotomy (09/2022) Exploratory laparotomy with sigmoid colon resection and colostomy for ischemic bowel. History of gastrostomy tube placement Family History Family History Other Family history unknown Social History Social History Social History: Surrogate medical decision maker: Man Swanson, father or Samia Hale, sister. Code status: Full code. Smoking status: Never smoker Second hand tobacco smoke exposure: No Alcohol intake: never Substance use: never Substance use type: does not use Additional living arrangements comments: Resident at [facility]. Spiritual care concerns: No Exam Narrative: GENERAL: Ill-appearing, well-nourished, and in no acute distress. HEAD: Normocephalic, atraumatic. EYES: PERRLA and EOMI. ENT: Nares clear, no rhinorrhea or epistaxis. Mucous membranes moist. NECK: Supple. CHEST: Clear to auscultation. No respiratory distress. HEART: Tachycardic rate and rhythm. No murmur heard. Normal peripheral pulses. ABDOMEN: Soft, nontender, nondistended, normal active bowel sounds. Colostomy present EXTREMITIES: Normal range of motion. No edema. SKIN: Warm, dry, no rash. NEURO: No focal deficits. Alert and nonverbal. PSYCH: Normal mood and affect. Course Vital Signs Vital signs: Vital Signs Temperature 38.2 C H 07/01/24 01:51 Pulse Rate 126 H 07/01/24 01:51 Respiratory Rate 20 07/01/24 01:51 Blood Pressure 159/97 H 07/01/24 01:51 Pulse Oximetry 96 07/01/24 01:51 Temperature 38.3 C H 07/01/24 05:42 Pulse Rate 123 H 07/01/24 06:36 Respiratory Rate 15 07/01/24 06:36 Blood Pressure 109/87 07/01/24 06:36 Pulse Oximetry 95 07/01/24 06:36 Medical Decision Making MDM Narrative Medical decision making narrative: Differential defect was includes pyelonephritis, bowel obstruction, Patient received IV fluids antipyretics, started on cefepime CT scan showed evidence of bowel obstruction. The case was discussed with hospitalist the patient received further care the inpatient setting Vital Signs Vital Signs: Vital Signs Temperature 38.2 C H 07/01/24 01:51 Pulse Rate 126 H 07/01/24 01:51 Respiratory Rate 20 07/01/24 01:51 Blood Pressure 159/97 H 07/01/24 01:51 Pulse Oximetry 96 07/01/24 01:51 Temperature 38.3 C H 07/01/24 05:42 Pulse Rate 123 H 07/01/24 06:36
[2024-07-01] MEDS: IBUPROFEN IV 800 MG/200 ML 800 MG/200 ML BAG 400 MG IVPB (05:33)
[2024-07-01 05:57] LABS: Reflex Lactic Acid Yes or No Add Lactic
[2024-07-01] MEDS: CEFEPIME 2 GM/NS 50 ML 2 GM/50 ML BAG IVPB (06:10)
[2024-07-01] MEDS: SODIUM CHLORIDE 0.9% IV 1,000 ML 999 ML IV CONT ×2 (06:56→06:57)
--- NOTE | 2024-07-01 07:11 | PM.IMHP ---
H&P: HPI History of Present Illness Date/Time: 07/01/24 07:11 Chief Complaint: dark colored emesis Narrative: This is a 43-year-old male with a past medical history significant for autism with cognitive developmental delay, with chronic colostomy and indwelling Cardona catheter who resides at a half-way. The patient is nonverbal in the history use obtained through chart review. He presented to the emergency room via EMS after staff found him with dark brown emesis. He had a recent hospitalization at this hospital from 06/05-06/08 with a similar presentation. At that time he was positive for UTI with sepsis. His urine culture grew Proteus mirabilis susceptible to Augmentin. In the emergency room, labs were significant for white count 34, hemoglobin 15.5, a creatinine 1.70, BUN 23, PT 15.4, and glucose 154. UA showed turbid colored urine with 3+ protein, 3+ blood, 3+ leukocytes, pyuria, and 4+ bacteria. Viral respiratory panel was negative. He scored for sepsis being febrile 101.9, lactic 3.3, and tachycardic with a UTI. He received 2 L of normal saline bolus for 30 ml/kg fluid resuscitation, urine culture was obtained and he was started on Cefepime. Blood cultures have since been ordered. CT abdomen and pelvis showed findings of cystitis and mild bilateral hydroureteronephrosis. He was admitted to the medical floor in this setting for further work up of sepsis, IV antibiotics, IV fluids, and work up of possible GI bleed. Review of Systems Review of Systems: ROS unobtainable: Yes other (non-verbal, autistic ) [facility] Past Medical History Medical History (Updated 07/01/24 @ 15:06 by Trish Restrepo APRN) Autism Chronic indwelling Cardona catheter Cognitive developmental delay Surgical History Surgical History History of exploratory laparotomy (09/2022) Exploratory laparotomy with sigmoid colon resection and colostomy for ischemic bowel. History of gastrostomy tube placement Family History Family History Other Family history unknown Social History Social History (Updated 07/01/24 @ 15:08 by Trish Restrepo APRN) Social History: Patient lives in [facility]. Surrogate medical decision maker: Man Swanson, father or Samia Hale, sister. Code status: Full code. Smoking status: Never smoker Second hand tobacco smoke exposure: No Alcohol intake: never Substance use: never Substance use type: does not use Additional living arrangements comments: Resident at [facility]. Spiritual care concerns: No Meds Home Medications and Allergies Home Medications Medication Instructions Recorded Confirmed Type famotidine 20 mg tablet 20 mg feeding tube Q12HR 30 days 11/08/22 07/01/24 Rx #60 tabs ondansetron HCl 4 mg tablet 4 mg PO Q6H PRN nausea and 11/16/23 07/01/24 Rx vomiting #60 tabs polyethylene glycol 3350 17 17 g feeding tube DAILY 01/09/24 07/01/24 History gram/dose oral powder (Miralax) sennosides 8.6 mg-docusate sodium 1 tablet PO Q12H 01/09/24 07/01/24 History 50 mg tablet (Senna Plus) Allergies Allergy/AdvReac Type Severity Reaction Status Date / Time No Known Allergies Allergy Verified 05/03/24 15:35 Vital Signs Vital Signs - 24 hr 07/01/24 01:51 07/01/24 02:58 07/01/24 05:33 Temperature 100.8 F H 100.9 F H Pulse Rate 126 H 124 H Respiratory Rate 20 14 Blood Pressure 159/97 H 136/96 H Pulse Oximetry 96 95 07/01/24 05:42 07/01/24 04:00 07/01/24 06:36 Temperature 100.9 F H 101.9 F H Pulse Rate 121 H 111 H 123 H Respiratory Rate 14 12 15 Blood Pressure 133/69 154/88 H 109/87 Pulse Oximetry 100 96 95 Exam Narrative: General: resting with eyes closed, thin, appears stated age. HEENT: normocephalic, atraumatic. Mucous membranes moist. EOMI, PERRLA, bilateral sclera anicteric, no conjunctival injection. Neck bird
[2024-07-01 07:32] LABS: Lactic Acid 1.5 mmol/L (0.7-2.0)
[2024-07-01] MEDS: PANTOPRAZOLE SODIUM IV 40 MG VIAL IV PUSH ×2 (09:41→18:23)
--- NOTE | 2024-07-01 09:59 | ADMGEN ---
This patient, Ricky Swanson, was admitted to [facility] Surg Room 333-01. Patient/family oriented to hospital policies and general routines including ID bracelet, bed and alarms, visiting hours, pain management, procedures, bathroom and other care routines, personal items, smoking policy, room service/diet, and visiting hours. Information on how to activate the Rapid Response Team has been discussed. Patient/Family are encouraged to report perceived risks to care and to ask questions if they do not understand what they are told or what they should do.
[2024-07-01] MEDS: SODIUM CHLORIDE 0.9% IV 1,000 ML 100 ML IV CONT ×2 (10:00→20:22)
[2024-07-01] MEDS: CEFEPIME 1 GM/NS 50 ML 1 GM/50 ML BAG IVPB (18:28)
--- NOTE | 2024-07-01 18:46 | PC.NURSE ---
On 07/01/24, the CHAIRMAN AND CHIEF EXECUTIVE OFFICER, Sissy Sims, provided care and completed [employer] documentation on this patient. I have reviewed the CHAIRMAN AND CHIEF EXECUTIVE OFFICER's documentation and agree with the findings.
[2024-07-01] MEDS: LORazepam INJ (*CRX) 2 MG/ML VIAL 0.5 MG IV PUSH (21:08)
--- NOTE | 2024-07-01 22:28 | ECG_ITS ---
Test Date: 2024-07-01 23:21:04 Measurements Intervals Brule Rate: 134 P: 49 IN: 125 QRS: 56 QRSD: 80 T: 74 QT: 331 QTc: 495 Interpretive Statements SINUS TACHYCARDIA NONSPECIFIC T-WAVE ABNORMALITY ABNORMAL RHYTHM ECG No previous ECG available for comparison Electronically Signed On 07-02-2024 14:56:00 CDT by Dread Correa M.D.
[2024-07-02] VITALS (13 sets, daily range): BP systolic 110–126; BP diastolic 62–76; PULSE 105–131; RESP 14–18; TEMP 36.7–37.6; O2SAT 91–95
--- NOTE | 2024-07-02 00:49 | PC.NURSE ---
Spoke with Cuca at the start of this shift, regarding pt's elevated HR (150s). Cuca gave a 1x dose of ativan, with no decrease in HR. Notified Dr Aden 1 hour later as instructed, if no improvement. Dr Aden decreased fluids from 100/hr to 45/hr. Pt currently in the 120s. Will call Dr Aden back in 2 hours if HR continues to be elevated, as instructed.
[2024-07-02] MEDS: ACETAMINOPHEN 650 MG SUPPOSITORY RECTAL (02:30)
--- NOTE | 2024-07-02 03:46 | PC.NURSE ---
Pt continues to have an elevated HR, however it is down from the 150's to the 120's. Dr Aden aware, no more new orders at this time.
[2024-07-02] MEDS: CEFEPIME 1 GM/NS 50 ML 1 GM/50 ML BAG IVPB ×2 (05:11→16:00)
[2024-07-02 06:06] LABS: Basophils Absolute Auto 0.1 K/mm3 (0.0-0.1); Basophils Percent Auto 0.4 % (0.2-1.2); Eosinophils Absolute Auto 0.1 K/mm3 (0-0.3); Eosinophils Percent Auto 0.3 % (0-4.4); Hemoglobin 11.9 g/dL (14.0-18.0); Immature Granulocyte Absolute 0.21 K/mm3 (0.00-0.031); Immature Granulocyte Percent A 0.8 % (0-0.5); Lymphocytes Absolute Auto 1.78 K/mm3 (0.9-3.2); Lymphocytes Percent Auto 6.8 % (18.3-44.2); Mean Corpuscular HGB Conc 31.3 g/dl (32-36); Mean Corpuscular Hemoglobin 28.2 pg (26-34); Mean Platelet Volume 8.9 fl (7.4-10.4); Monocytes Absolute Auto 1.2 K/mm3 (0.1-0.6); Monocytes Percent Auto 4.7 % (2.6-8.5); Neutrophils Absolute Auto 22.8 K/mm3 (1.3-6.7); Platelet Count Result 220 k/mm3 (150-375); Red Blood Count 4.22 M/mm3 (4.6-6.20); Red Cell Distribution Width 15.4 % (11.5-14.5); White Blood Count 26.2 K/mm3 (4.5-10.0)
[2024-07-02 06:20] LABS: Alanine Aminotransferase 14 U/L (6-50); Albumin Level 3.4 g/dL (3.5-5.1); Alkaline Phosphatase 83 U/L (38-126); Anion Gap 11 mmol/L (4-12); Aspartate Amino Transferase 19 U/L (17-59); Bilirubin,Total 0.8 mg/dL (0.2-1.3); Blood Urea Nitrogen 14 mg/dL (9-20); Carbon Dioxide 22 mmol/L (22-30); Chloride 111 mmol/L (98-107); Estimated CRCL calculation 82 ml/min; Estimated Glomerular Filt Rate > 60; Glucose 138 mg/dL (65-110); Magnesium 2.1 mg/dL (1.6-2.3); Potassium 3.4 mmol/L (3.4-5.0); Sodium 144 mmol/L (137-145)
--- NOTE | 2024-07-02 09:06 | PM.IMPN ---
Progress Note: A&P Assessment and Plan (1) Sepsis: Code(s): A41.9 - Sepsis, unspecified organism Status: Acute Assessment and Plan: Present on admission with lactic acidosis 3.3, leukocytosis 34, febrile 101.9, and tachycardic 120's. Suspected source of infection is urinary tract. U/A showed +3 leukocytes, pyuria, and +[address] abdomen/pelvis shows mild bilateral hydroureteronephrosis. Patient received fluid resuscitation and 30 mls per kilos: 2 L normal saline Lactic cleared Urine cultures growing proteus mirabilis, blood culture with no growth to date. Patient was started on cefepime Previous urine culture from last admission grew Proteus mirabilis Chronic Cardona catheter in place. Will make sure this was exchanged Tachycardic overnight to the 140s. Patient was started on maintenance fluids at 45 mL an hour. Will give a L bolus this morning. (2) Acute pyelonephritis: Code(s): N10 - Acute pyelonephritis Status: Acute Assessment and Plan: Concern for acute pyelonephritis given presence of UTI, nausea, and vomiting. Mild bilateral hydroureteronephrosis seen on CT imaging. See 1 For plan. (3) RACQUEL (acute kidney injury): Code(s): N17.9 - Acute kidney failure, unspecified Status: Acute Assessment and Plan: Creatinine is usually normal. Creatinine on admission is 1.70. Suspect elevation secondary to hypovolemia with vomiting. Likely pre renal Status post fluid resuscitation and on maintenance fluids 45 mL/hour Repeat BMP Creatinine elevation resolved (4) Nausea and vomiting: Qualifiers: Vomiting type: unspecified Qualified Code(s): R11.2 - Nausea with vomiting, unspecified Code(s): R11.2 - Nausea with vomiting, unspecified Status: Acute Assessment and Plan: Per chart review patient had dark-colored emesis which is what prompted emergency room visit. Patient had previous admission with similar complaint. Low suspicion for GI bleed given hemoglobin 15.5 g/dL-->11.9 g/dL Ostomy output without concerns for blood Protonix 40 mg b.i.d. Zofran p.r.n. Patient was seen by speech this admission and tolerated regular diet with regular fluids. Regular diet to resume now. He normally has tube feedings at night. Reviewed recommendations from Nutrition during last admission. Will continue with Jevity 1.5 at 60 mils per hour from 8:00 p.m. to 6:00 a.m.. Plan DVT prophylaxis: SCD's, holding on Lovenox given possibility GI bleed GI prophylaxis: Protonix b.i.d. Glycemic control: blood glucose 154 on a.m. labs Code Status: Full code Disposition: This is an autistic nonverbal until who presents in the detention when presented after staff found him with dark colored emesis. Arrival to the emergency room he was septic. UTI suspected source. He is on IV antibiotics and IV fluids. Anticipate discharge back to his previous living arrangements and greater than 2 days. Medication reconciliation obtained via the following: Nurse completed on admission The file time of this note does not necessarily represent the time the patient was seen. Advance Care Plan I have confirmed that the patient's Advanced Care Plan is present, code status is documented, or surrogate decision maker is listed in patient medical record.: Yes Medication Reconciliation I have utilized all available resources to obtain, update and review the patients current medications (includes all prescriptions, OTC, herbals, cannabis, and nutritional supplements).: Yes Subjective Date/time seen: 07/02/24 09:06 Interval history: This is a 43-year-old male with a past medical history significant for autism with cognitive developmental delay, with chronic colostomy an
--- NOTE | 2024-07-02 09:07 | PCNFU ---
Nutrition Follow-Up Complete: Potential for inadequate oral intake related to chronic medical condition as evidenced by PO intake, need for partial tube feeding to meet nutrition needs Goal: Meet estimated nutrition needs - meeting about 50% estimated needs with tube feeding. PO intakes not meeting needs, 0-10% yesterday Pt current nutrition is Jevity 1.5 @ 60 ml/h run time 10 hours (8pm-6am): 900 kcal, 38 g protein, 456 ml free water. Regular diet during the day. Ensure Enlive TID for additional 350 kcal and 20 g protein each. Nutrition recommendation: No new nutrition recommendations. Encourage intake of meals, oral nutrition supplement. Last recorded weight is 50 kg. Bowel Motility: No bowel movement charted. Diverting colostomy Labs Reviewed: Hgb 11.9, Hct 38, Alb 3.4, Glu 138 Meds Noted: Zofran, Miralax, senna, pepcid, NS Skin: No pressure injuries Additional Notes: Pt has not had any weight loss so intakes at the NM may be better than during this admission. Tolerates tube feeding well, continue at current rate with no increase and just encourage/assist with eating and drinking supplements. Monitoring intakes, weights, labs, supplement tolerance, tube feeding tolerance, plan of care Follow up Tuesdays and Fridays per policy
[2024-07-02] MEDS: SODIUM CHLORIDE 0.9% IV 1,000 ML 999 ML IV CONT (11:49)
[2024-07-02] MEDS: SODIUM CHLORIDE 0.9% IV 1,000 ML 45 ML IV CONT (15:51)
[2024-07-02] MEDS: FAMOTIDINE 20 MG TABLET FEED TUBE (20:31)
[2024-07-03] VITALS (7 sets, daily range): BP systolic 117–128; BP diastolic 72–80; PULSE 90–112; RESP 14–18; TEMP 36.7–37.2; O2SAT 92–94
[2024-07-03] MEDS: CEFEPIME 1 GM/NS 50 ML 1 GM/50 ML BAG IVPB ×2 (04:29→16:43)
[2024-07-03 06:40] LABS: Alanine Aminotransferase 16 U/L (6-50); Albumin Level 3.7 g/dL (3.5-5.1); Alkaline Phosphatase 93 U/L (38-126); Anion Gap 13 mmol/L (4-12); Aspartate Amino Transferase 25 U/L (17-59); Bilirubin,Total 1.3 mg/dL (0.2-1.3); Blood Urea Nitrogen 7 mg/dL (9-20); Calcium 8.1 mg/dL (8.4-10.2); Carbon Dioxide 21 mmol/L (22-30); Chloride 106 mmol/L (98-107); Estimated CRCL calculation 94 ml/min; Estimated Glomerular Filt Rate > 60; Glucose 105 mg/dL (65-110); Potassium 3.5 mmol/L (3.4-5.0); Sodium 140 mmol/L (137-145)
[2024-07-03 09:02] LABS: Basophils Absolute Auto 0.1 K/mm3 (0.0-0.1); Basophils Percent Auto 0.2 % (0.2-1.2); Eosinophils Absolute Auto 0.1 K/mm3 (0-0.3); Eosinophils Percent Auto 0.5 % (0-4.4); Hemoglobin 12.5 g/dL (14.0-18.0); Immature Granulocyte Absolute 0.13 K/mm3 (0.00-0.031); Immature Granulocyte Percent A 0.6 % (0-0.5); Lymphocytes Absolute Auto 3.39 K/mm3 (0.9-3.2); Lymphocytes Percent Auto 14.6 % (18.3-44.2); Mean Corpuscular HGB Conc 31.3 g/dl (32-36); Mean Corpuscular Hemoglobin 27.3 pg (26-34); Mean Corpuscular Volume 87.3 fl (80-100); Monocytes Absolute Auto 1.5 K/mm3 (0.1-0.6); Monocytes Percent Auto 6.3 % (2.6-8.5); Neutrophils Absolute Auto 18.1 K/mm3 (1.3-6.7); Neutrophils Percent Auto 77.8 % (45.5-73.1); Platelet Count Result 221 k/mm3 (150-375); Red Blood Count 4.58 M/mm3 (4.6-6.20); White Blood Count 23.3 K/mm3 (4.5-10.0)
[2024-07-03] MEDS: FAMOTIDINE 20 MG TABLET FEED TUBE ×2 (10:23→21:11)
--- NOTE | 2024-07-03 13:05 | P.PNIM_ITS ---
Progress Note: A&P Assessment and Plan (1) Sepsis: Code(s): A41.9 - Sepsis, unspecified organism Status: Acute Assessment and Plan: Present on admission with lactic acidosis 3.3, leukocytosis 34, febrile 101.9, and tachycardic 120's. Suspected source of infection is urinary tract. U/A showed +3 leukocytes, pyuria, and +[address] abdomen/pelvis shows mild bilateral hydroureteronephrosis. * Patient received fluid resuscitation and 30 mls per kilos: 2 L normal saline * Lactic cleared * Urine cultures growing proteus mirabilis, blood culture with no growth to date. * Patient was started on cefepime * Previous urine culture from last admission grew Proteus mirabilis * Chronic Cardona catheter in place. Will make sure this was exchanged * Still slightly tachycardic in the 100's. * Chest x-ray repeated today. Shows emphysema and atelectasis (2) Acute pyelonephritis: Code(s): N10 - Acute pyelonephritis Status: Acute Assessment and Plan: Concern for acute pyelonephritis given presence of UTI, nausea, and vomiting. Mild bilateral hydroureteronephrosis seen on CT imaging. See 1 For plan. (3) RACQUEL (acute kidney injury): Code(s): N17.9 - Acute kidney failure, unspecified Status: Acute Assessment and Plan: Creatinine is usually normal. Creatinine on admission is 1.70. Suspect elevation secondary to hypovolemia with vomiting. * Likely pre renal * Status post fluid resuscitation and on maintenance fluids 45 mL/hour---stopping maintenance fluids as he is taking PO now * Repeat BMP * Creatinine elevation resolved (4) Nausea and vomiting: Qualifiers: Vomiting type: unspecified Qualified Code(s): R11.2 - Nausea with vomiting, unspecified Code(s): R11.2 - Nausea with vomiting, unspecified Status: Acute Assessment and Plan: Per chart review patient had dark-colored emesis which is what prompted emergency room visit. Patient had previous admission with similar complaint. * Low suspicion for GI bleed given hemoglobin 15.5 g/dL-->11.9 g/dL * Ostomy output without concerns for blood * Protonix 40 mg b.i.d. * Zofran p.r.n. * Patient was seen by speech this admission and tolerated regular diet with regular fluids. Regular diet to resume now. He normally has tube feedings at night. Reviewed recommendations from Nutrition during last admission. Will continue with Jevity 1.5 at 60 mils per hour from 8:00 p.m. to 6:00 a.m.. * Patient removed G-tube. Dr Ortega with GI exchanged tube at the bedside. Plan DVT prophylaxis: SCD's, holding on Lovenox given possibility GI bleed GI prophylaxis: Protonix b.i.d. Glycemic control: blood glucose 154 on a.m. labs Code Status: Full code Disposition: This is an autistic nonverbal until who presents in the detention when presented after staff found him with dark colored emesis. Arrival to the emergency room he was septic. UTI suspected source. He is on IV antibiotics and IV fluids. Anticipate discharge back to his previous living arrangements and greater than 2 days. Medication reconciliation obtained via the following: Nurse completed on admission The file time of this note does not necessarily represent the time the patient was seen. Advance Care Plan I have confirmed that the patient's Advanced Care Plan is present, code status is documented, or surrogate d
--- NOTE | 2024-07-03 13:21 | WPDGICN ---
Assessment and Plan Assessment and plan (1) Malfunction of gastrostomy tube: Code(s): K94.23 - Gastrostomy malfunction Status: Inactive Assessment and Plan: I replaced G-tube at bedside, ostomy still wide open (previous G-tube size was 14Fr). No issues and new one in position, balloon inflated with 6ml water. ok to start using make sure that patient does not pull it out again (2) Sepsis: Code(s): A41.9 - Sepsis, unspecified organism Status: Acute Assessment and Plan: on abx (3) Acute pyelonephritis: Code(s): N10 - Acute pyelonephritis Status: Acute (4) N&V (nausea and vomiting): Code(s): R11.2 - Nausea with vomiting, unspecified Status: Acute Assessment and Plan: improved monitor (5) RACQUEL (acute kidney injury): Code(s): N17.9 - Acute kidney failure, unspecified Status: Acute Assessment and Plan: on treatment (6) Autism: Code(s): F84.0 - Autistic disorder Status: Chronic GI Consult Note Consult date/time: 07/03/24 13:21 Reason for consult: malfunctioning G-tube HPI: Ricky Swanson is a 43 year old male with significant history of autism with cognitive developmental delay, with chronic colostomy, G-tube and indwelling Cardona catheter who resides at a halfway. The patient is nonverbal in the history use obtained through chart review. He is admitted after noted dark brown emesis and found to have sepsis with pyelonephritis, racquel and started on antibiotics. clinical staff rn few minutes ago just noted that G-tube has been removed and I was called. Review of Systems Review of Systems: ROS unobtainable: Yes unobtainable due to mental status PMFSH Past Medical History Medical History (Updated 07/01/24 @ 15:06 by Trish Restrepo APRN) Autism Chronic indwelling Cardona catheter Cognitive developmental delay Surgical History Surgical History History of exploratory laparotomy (09/2022) Exploratory laparotomy with sigmoid colon resection and colostomy for ischemic bowel. History of gastrostomy tube placement Family History Family History Other Family history unknown Social History Social History (Updated 07/01/24 @ 15:08 by Trish Restrepo APRN) Social History: Patient lives in [facility]. Surrogate medical decision maker: Man Swanson, father or Samia Hale, sister. Code status: Full code. Smoking status: Never smoker Second hand tobacco smoke exposure: No Alcohol intake: never Substance use: never Substance use type: does not use Additional living arrangements comments: Resident at [facility]. Spiritual care concerns: No Meds Home Medications and Allergies Home Medications Medication Instructions Recorded Confirmed Type famotidine 20 mg tablet 20 mg feeding tube Q12HR 30 days 11/08/22 07/01/24 Rx #60 tabs ondansetron HCl 4 mg tablet 4 mg PO Q6H PRN nausea and 11/16/23 07/01/24 Rx vomiting #60 tabs polyethylene glycol 3350 17 17 g feeding tube DAILY 01/09/24 07/01/24 History gram/dose oral powder (Miralax) sennosides 8.6 mg-docusate sodium 1 tablet PO Q12H 01/09/24 07/01/24 History 50 mg tablet (Senna Plus) Allergies Allergy/AdvReac Type Severity Reaction Status Date / Time No Known Allergies Allergy Verified 05/03/24 15:35 Vital Signs Vital Signs - 24 hr 07/02/24 14:00 07/02/24 16:03 07/02/24 21:22 Temperature 99.2 F 99.6 F Pulse Rate 107 H 105 H 125 H Respiratory Rate 16 14 Blood Pressure 126/76 123/71 Pulse Oximetry 95 91 Oxygen Delivery Fraction of Inspired Oxygen 07/02/24 20:00 07/02/24 20:00 07/03/24 00:00 Temperature Pulse Rate 125 H 121 H 112 H Respiratory Rate 14 Blood Pressure Pulse Oximetry 91 Oxygen Delivery Room Air Fraction of Inspired Oxygen 07/03/24 05:46
--- NOTE | 2024-07-03 13:26 | W.PM.PROC2 ---
Procedure Note - Detailed Date of Procedure 07/03/24 Pre-op Diagnosis uti,sepsis Post-op Diagnosis Same Procedure Performed replacement of G-tube Surgeon Suleman Mei MD Anesthesia None Indications previous G-tube was pulled out Description of Procedure I used 18 Fr G-tube, used same gastrostomy site and secured in position at 3.5cm, balloon inflated with 6 ml water. Noted gastric contents in tubing. Complications No immediate complications
--- NOTE | 2024-07-03 14:04 | PC.NURSE ---
Assuming care for pt
--- NOTE | 2024-07-03 16:22 | PC.NURSE ---
Care assumed from TARYN Montelongo.
[2024-07-04] MEDS: CEFEPIME 1 GM/NS 50 ML 1 GM/50 ML BAG IVPB ×2 (04:47→17:43)
[2024-07-04 06:00] VITALS: BP 135/85; PULSE 100; RESP 18; TEMP 36.8; O2SAT 94
[2024-07-04 06:11] LABS: Basophils Percent Auto 0.2 % (0.2-1.2); Eosinophils Absolute Auto 0.2 K/mm3 (0-0.3); Eosinophils Percent Auto 1.1 % (0-4.4); Hemoglobin 14.4 g/dL (14.0-18.0); Immature Granulocyte Absolute 0.08 K/mm3 (0.00-0.031); Immature Granulocyte Percent A 0.5 % (0-0.5); Lymphocytes Absolute Auto 1.93 K/mm3 (0.9-3.2); Mean Corpuscular HGB Conc 30.6 g/dl (32-36); Mean Corpuscular Hemoglobin 26.8 pg (26-34); Mean Corpuscular Volume 87.5 fl (80-100); Mean Platelet Volume 9.7 fl (7.4-10.4); Monocytes Percent Auto 5.9 % (2.6-8.5); Neutrophils Absolute Auto 12.9 K/mm3 (1.3-6.7); Neutrophils Percent Auto 80.3 % (45.5-73.1); Platelet Count Result 233 k/mm3 (150-375); Red Blood Count 5.37 M/mm3 (4.6-6.20); Red Cell Distribution Width 15.1 % (11.5-14.5); White Blood Count 16.1 K/mm3 (4.5-10.0)
[2024-07-04 06:30] LABS: Alanine Aminotransferase 25 U/L (6-50); Albumin Level 4.4 g/dL (3.5-5.1); Alkaline Phosphatase 103 U/L (38-126); Anion Gap 12 mmol/L (4-12); Aspartate Amino Transferase 35 U/L (17-59); Bilirubin,Total 0.7 mg/dL (0.2-1.3); Blood Urea Nitrogen 13 mg/dL (9-20); Calcium 9.2 mg/dL (8.4-10.2); Carbon Dioxide 28 mmol/L (22-30); Chloride 104 mmol/L (98-107); Estimated CRCL calculation 94 ml/min; Estimated Glomerular Filt Rate > 60; Glucose 128 mg/dL (65-110); Magnesium 2.1 mg/dL (1.6-2.3); Potassium 4.2 mmol/L (3.4-5.0); Sodium 144 mmol/L (137-145)
[2024-07-04] MEDS: FAMOTIDINE 20 MG TABLET FEED TUBE ×2 (09:25→21:16)
--- NOTE | 2024-07-04 09:36 | WPDGIPROGNO ---
Progress Note: A&P Assessment and Plan (1) Status post insertion of percutaneous endoscopic gastrostomy (PEG) tube: Code(s): Z93.1 - Gastrostomy status Status: Acute Assessment and Plan: replaced and working ok will follow as needed (2) N&V (nausea and vomiting): Code(s): R11.2 - Nausea with vomiting, unspecified Status: Acute Assessment and Plan: resolved (3) Acute pyelonephritis: Code(s): N10 - Acute pyelonephritis Status: Acute Assessment and Plan: on iv abx (4) Sepsis: Code(s): A41.9 - Sepsis, unspecified organism Status: Acute Assessment and Plan: resolved (5) Autism: Code(s): F84.0 - Autistic disorder Status: Chronic Subjective Date/time seen: 07/04/24 09:36 Interval history: new g-tube working ok no changes Review of Systems Review of Systems: All systems reviewed & are unremarkable except as noted in HPI and below Exam Narrative: General: alert, thin, appears stated age. HEENT: normocephalic, atraumatic. Neck supple Respiratory: clear to auscultation bilaterally. No rales/rhonic/wheezes. Cardiovascular: Regular rate and rhythm, normal S1-S2 upon auscultation. Abdomen: Soft, flat, no pulsatile masses, nondistended and nontender. No rebound, no guarding. G-tube in place. Colostomy with brown stool. Bowel sounds present. Extremities: No cyanosis, clubbing, or edema present. Neuro: Alert, non-verbal, Skin: Warm, dry, and intact, without rash, erythema, or lesion. Lines: PIV Incisions: N/A Psych: non-verbal autistic Objective Data Vital Signs Vital Signs: Vital Signs - 24 hr 07/03/24 14:00 07/03/24 20:00 07/03/24 21:32 Temperature 98.0 F 98.9 F Pulse Rate 90 90 106 H Respiratory Rate 14 14 18 Blood Pressure 120/80 128/75 Pulse Oximetry 92 92 93 Oxygen Delivery Room Air Fraction of Inspired Oxygen 21 07/04/24 06:00 Temperature 98.2 F Pulse Rate 100 Respiratory Rate 18 Blood Pressure 135/85 Pulse Oximetry 94 Oxygen Delivery Fraction of Inspired Oxygen Intake/Output Intake/Output: Intake & Output 08/08/24 07/02/24 07/03/24 07/04/24 23:59 23:59 23:59 23:59 Intake Total 3300 2060 660 150 Output Total 1350 2300 1800 475 Balance 3528 -771 -1140 -649 Meds/Results Medications: Active Medications Generic Name Dose Route Start Last Admin Trade Name Freq PRN Reason Stop Dose Admin Acetaminophen 650 mg 07/01/24 06:54 07/02/24 02:30 Acetaminophen 650 Mg Suppository RECTAL 650 mg Q6H PRN Administration Mild Pain (1-3) or Fever Famotidine 20 mg 07/02/24 21:00 07/04/24 09:25 Famotidine 20 Mg Tablet FEED TUBE 20 mg Q12HR FARZAD Administration Cefepime HCl 1 gm in 50 mls @ 100 mls/hr 07/01/24 17:00 07/04/24 07:00 Maxipime 1 Gm/Ns 50 Ml IVPB Infused Q12H FARZAD Infusion Ondansetron HCl 4 mg 07/01/24 06:54 Ondansetron Inj 4 Mg/2 Ml Vial IV PUSH Q4H PRN Nausea Ondansetron HCl 4 mg 07/02/24 09:08 Ondansetron Hcl Odt 4 Mg Tablet PO Q6H PRN nausea and vomiting Polyethylene Glycol 17 gm 07/02/24 15:29 Polyethylene Glycol 3350 17 Gm Powd.Pack FEED TUBE DAILY PRN Constipation Senna/Docusate Sodium 1 tab 07/02/24 15:29 Senna/Docusate Sodium Tablet PO Q12HR PRN Constipation Radiology Results: ITS Impressions Abdomen/Pelvis CT 07/01/24 05:57 Impression: Findings most compatible cystitis, as detailed above. Correlate with urinalysis. Mild bilateral hydroureteronephrosis. Single borderline enlarged left external iliac/common femoral lymph node, as above, nonspecific, similar to prior exam. Severe bullous emphysema at the lung bases, as detailed above. Chest X-Ray 07/03/24 12:24 IMPRESSION: 1. Emphysema. 2. Airspace opacities in the mid and lower lung zones, right worse than left, likely atelectasis. Labs Labs: Laboratory Results -
--- NOTE | 2024-07-04 10:31 | PM.IMPN ---
Progress Note: A&P Assessment and Plan (1) Sepsis: Code(s): A41.9 - Sepsis, unspecified organism Status: Acute Assessment and Plan: Present on admission with lactic acidosis 3.3, leukocytosis 34, febrile 101.9, and tachycardic 120's. Suspected source of infection is urinary tract. U/A showed +3 leukocytes, pyuria, and +[address] abdomen/pelvis shows mild bilateral hydroureteronephrosis. Patient received fluid resuscitation and 30 mls per kilos: 2 L normal saline Lactic cleared Urine cultures growing proteus mirabilis, blood culture with no growth to date. Patient was started on cefepime Previous urine culture from last admission grew Proteus mirabilis Chronic Cardona catheter in place. Will make sure this was exchanged Still slightly tachycardic in the 100's. Chest x-ray repeated today. Shows emphysema and atelectasis (2) Acute pyelonephritis: Code(s): N10 - Acute pyelonephritis Status: Acute Assessment and Plan: Concern for acute pyelonephritis given presence of UTI, nausea, and vomiting. Mild bilateral hydroureteronephrosis seen on CT imaging. See 1 For plan. (3) RACQUEL (acute kidney injury): Code(s): N17.9 - Acute kidney failure, unspecified Status: Acute Assessment and Plan: Creatinine is usually normal. Creatinine on admission is 1.70. Suspect elevation secondary to hypovolemia with vomiting. Likely pre renal Status post fluid resuscitation and on maintenance fluids 45 mL/hour---stopping maintenance fluids as he is taking PO now Repeat BMP Creatinine elevation resolved (4) Nausea and vomiting: Qualifiers: Vomiting type: unspecified Qualified Code(s): R11.2 - Nausea with vomiting, unspecified Code(s): R11.2 - Nausea with vomiting, unspecified Status: Acute Assessment and Plan: Per chart review patient had dark-colored emesis which is what prompted emergency room visit. Patient had previous admission with similar complaint. Low suspicion for GI bleed given hemoglobin 15.5 g/dL-->11.9 g/dL Ostomy output without concerns for blood Protonix 40 mg b.i.d. Zofran p.r.n. Patient was seen by speech this admission and tolerated regular diet with regular fluids. Regular diet to resume now. He normally has tube feedings at night. Reviewed recommendations from Nutrition during last admission. Will continue with Jevity 1.5 at 60 mils per hour from 8:00 p.m. to 6:00 a.m.. Patient removed G-tube. Dr Ortega with GI exchanged tube at the bedside. Plan DVT prophylaxis: SCD's, holding on Lovenox given possibility GI bleed GI prophylaxis: Protonix b.i.d. Glycemic control: blood glucose 154 on a.m. labs Code Status: Full code Disposition: This is an autistic nonverbal until who presents in the half-way when presented after staff found him with dark colored emesis. Arrival to the emergency room he was septic. UTI suspected source. He is on IV antibiotics and IV fluids. Anticipate discharge back to his previous living arrangements and greater than 2 days. Medication reconciliation obtained via the following: Nurse completed on admission The file time of this note does not necessarily represent the time the patient was seen. Advance Care Plan I have confirmed that the patient's Advanced Care Plan is present, code status is documented, or surrogate decision maker is listed in patient medical record.: Yes Medication Reconciliation I have utilized all available resources to obtain, update and review the patients current medications (includes all prescriptions, OTC, herbals, cannabis, and nutritional supplements).: Yes Subjective Date/time seen: 07/04/24 10:31 Interval history: This is a 43-year-old male with
[2024-07-04 14:00] VITALS: BP 130/68; PULSE 97; RESP 19; TEMP 36.8; O2SAT 94
--- NOTE | 2024-07-04 18:10 | PC.NURSE ---
This RN, PCT, Amelia, and RN Santa, attempted catheter care and change stat-lock on pt @1745, pt resisted care; knees drawn up, pushing staff away. Unsuccessful in attempt.
[2024-07-04 21:14] VITALS: BP 120/77; PULSE 102; RESP 16; TEMP 36.6; O2SAT 93
[2024-07-05 05:14] VITALS: BP 132/79; PULSE 97; RESP 16; TEMP 36.3; O2SAT 93
[2024-07-05] MEDS: CEFEPIME 1 GM/NS 50 ML 1 GM/50 ML BAG IVPB (05:48)
[2024-07-05 06:36] LABS: Basophils Absolute Auto 0.1 K/mm3 (0.0-0.1); Basophils Percent Auto 0.5 % (0.2-1.2); Eosinophils Absolute Auto 0.5 K/mm3 (0-0.3); Eosinophils Percent Auto 3.5 % (0-4.4); Hematocrit 46.6 % (42.0-52.0); Hemoglobin 14.4 g/dL (14.0-18.0); Immature Granulocyte Absolute 0.12 K/mm3 (0.00-0.031); Immature Granulocyte Percent A 0.9 % (0-0.5); Lymphocytes Absolute Auto 2.58 K/mm3 (0.9-3.2); Lymphocytes Percent Auto 19.5 % (18.3-44.2); Mean Corpuscular HGB Conc 30.9 g/dl (32-36); Mean Corpuscular Hemoglobin 27.5 pg (26-34); Mean Corpuscular Volume 88.9 fl (80-100); Monocytes Absolute Auto 1.4 K/mm3 (0.1-0.6); Monocytes Percent Auto 10.6 % (2.6-8.5); Neutrophils Absolute Auto 8.6 K/mm3 (1.3-6.7); Platelet Count Result 266 k/mm3 (150-375); Red Blood Count 5.24 M/mm3 (4.6-6.20); Red Cell Distribution Width 15.2 % (11.5-14.5); White Blood Count 13.2 K/mm3 (4.5-10.0)
[2024-07-05] MEDS: FAMOTIDINE 20 MG TABLET FEED TUBE (08:30)
[2024-07-05 08:36] VITALS: PULSE 102; O2SAT 97
[2024-07-05 14:21] VITALS: BP 131/73; PULSE 102; RESP 16; TEMP 36.8; O2SAT 93
--- NOTE | 2024-07-05 14:57 | PM.DS ---
DS: Admitting Diagnosis Discharge Date 07/05/24 Admitting Diagnosis 07/05 DS: Discharge Diagnosis Discharge Diagnosis (1) Sepsis: Code(s): A41.9 - Sepsis, unspecified organism Status: Acute Assessment and Plan: Present on admission with lactic acidosis 3.3, leukocytosis 34, febrile 101.9, and tachycardic 120's. Suspected source of infection is urinary tract. U/A showed +3 leukocytes, pyuria, and +[address] abdomen/pelvis shows mild bilateral hydroureteronephrosis. Patient received fluid resuscitation and 30 mls per kilos: 2 L normal saline Lactic cleared Urine cultures growing proteus mirabilis, blood culture with no growth to date. Patient was started on cefepime Previous urine culture from last admission grew Proteus mirabilis Chronic Cardona catheter in place. Will make sure this was exchanged Still slightly tachycardic in the 100's. Chest x-ray repeated today. Shows emphysema and atelectasis (2) Acute pyelonephritis: Code(s): N10 - Acute pyelonephritis Status: Acute Assessment and Plan: Concern for acute pyelonephritis given presence of UTI, nausea, and vomiting. Mild bilateral hydroureteronephrosis seen on CT imaging. See 1 For plan. (3) RACQUEL (acute kidney injury): Code(s): N17.9 - Acute kidney failure, unspecified Status: Acute Assessment and Plan: Creatinine is usually normal. Creatinine on admission is 1.70. Suspect elevation secondary to hypovolemia with vomiting. Likely pre renal Status post fluid resuscitation and on maintenance fluids 45 mL/hour---stopping maintenance fluids as he is taking PO now Repeat BMP Creatinine elevation resolved (4) Nausea and vomiting: Qualifiers: Vomiting type: unspecified Qualified Code(s): R11.2 - Nausea with vomiting, unspecified Code(s): R11.2 - Nausea with vomiting, unspecified Status: Acute Assessment and Plan: Per chart review patient had dark-colored emesis which is what prompted emergency room visit. Patient had previous admission with similar complaint. Low suspicion for GI bleed given hemoglobin 15.5 g/dL-->11.9 g/dL Ostomy output without concerns for blood Protonix 40 mg b.i.d. Zofran p.r.n. Patient was seen by speech this admission and tolerated regular diet with regular fluids. Regular diet to resume now. He normally has tube feedings at night. Reviewed recommendations from Nutrition during last admission. Will continue with Jevity 1.5 at 60 mils per hour from 8:00 p.m. to 6:00 a.m.. Patient removed G-tube. Dr Ortega with GI exchanged tube at the bedside. Plan DVT prophylaxis: SCD's, holding on Lovenox given possibility GI bleed GI prophylaxis: Protonix b.i.d. Glycemic control: blood glucose 154 on a.m. labs Code Status: Full code Disposition: This is an autistic nonverbal until who presents in the [facility] when presented after staff found him with dark colored emesis. Arrival to the emergency room he was septic. UTI suspected source. He is on IV antibiotics and IV fluids. Anticipate discharge back to his previous living arrangements and greater than 2 days. Medication reconciliation obtained via the following: Nurse completed on admission The file time of this note does not necessarily represent the time the patient was seen. Advance Care Plan I have confirmed that the patient's Advanced Care Plan is present, code status is documented, or surrogate decision maker is listed in patient medical record.: Yes Medication Reconciliation I have utilized all available resources to obtain, update and review the patients current medications (includes all prescriptions, OTC, herbals, cannabis, and nutritional supplements).: Yes DS: Summary H
== END 2024-07-05 14:20 | DRG 466 ==
LOC: ANHED 07:08 → ANH3MEDSUR 09:40
PROVIDERS: Admitting Provider Internal Medicine; Emergency Provider Emergency Medicine; PCP Internal Medicine; Visit Provider Nurse Practitioner Acute Care
DX: T83.511A Infection and inflammatory reaction due to indwelling urethral catheter, initial encounter (principal); A41.9 Sepsis, unspecified organism; N13.6 Pyonephrosis; B96.4 Proteus (mirabilis) (morganii) as the cause of diseases classified elsewhere; K94.29 Other complications of gastrostomy; N17.9 Acute kidney failure, unspecified; F84.0 Autistic disorder; Z20.822 Contact with and (suspected) exposure to COVID-19
CPT/HCPCS: 36415; 71045; 74177; 80053; 81001; 83605; 83690; 83735; 84145; 85025; 85610; 85730; 86850; 86900; 86901; 87040; 87077; 87086; 87088; 87186; 87637; 93005; 96361; 96365; 96367; 96375; 99285; A9270; G0379; J0692; J1741; J2060; J2470; J7030; Q9967

== ENCOUNTER 2024-08-23 10:40 | Emergency (ER) | payer OTHER, SELFPAY ==
[2024-08-23] VITALS (9 sets, daily range): BP systolic 114–118; BP diastolic 76–98; PULSE 78–95; RESP 14–20; TEMP 36.6–36.7; O2SAT 96–100
--- NOTE | ~2024-08-23 | XR_ITS ---
EXAMINATION: XR abdomen gastric tube rechec DATE: 08/23/2024 13:23 INDICATION: Gastrostomy tube dysfunction. TECHNIQUE: A supine view of the abdomen was obtained. COMPARISON: CT abdomen and pelvis 07/01/2024 FINDINGS: There are no dilated loops of bowel. There is contrast in the stomach and proximal small joe wel. The gastrostomy tube is partially opacified with contrast. The tip is in the body of the stomach . IMPRESSION: 1. Gastrostomy tube in expected position. Reviewed, dictated and finalized at location A.
--- NOTE | 2024-08-23 12:30 | ED.GENADULT ---
HPI - General Adult General Chief complaint: Unspecified Stated complaint: g-tube pulled out Time Seen by Provider: 08/23/24 11:59 History of Present Illness HPI narrative: 43 old male presenting to the emergency department from longterm for multiple complaints. Patient is nonverbal at baseline. Patient does have a G-tube and a colostomy tube along with a Cardona catheter. Personal most concerned because the ostomy bag was not seated properly and was leaking. Patient did pull out his Cardona catheter. Nursing was also concerned about an unknown issue associated with the patient's feeding tube. Related Data Home Medications Medication Instructions Recorded Confirmed polyethylene glycol 3350 17 17 g feeding tube DAILY 01/09/24 07/01/24 gram/dose oral powder (Miralax) sennosides 8.6 mg-docusate sodium 1 tablet PO Q12H 01/09/24 07/01/24 50 mg tablet (Senna Plus) Allergies Allergy/AdvReac Type Severity Reaction Status Date / Time No Known Allergies Allergy Verified 05/03/24 15:35 Review of Systems Review of Systems: ROS unobtainable: Yes unobtainable due to medical condition PMFSH Past Medical History Medical History (Updated 08/23/24 @ 16:14 by Gabo Boswell MD) Autism Chronic indwelling Cardona catheter Cognitive developmental delay Surgical History Surgical History History of exploratory laparotomy (09/2022) Exploratory laparotomy with sigmoid colon resection and colostomy for ischemic bowel. History of gastrostomy tube placement Family History Family History Other Family history unknown Social History Social History (Updated 07/01/24 @ 15:08 by Trish Restrepo APRN) Social History: Patient lives in [facility]. Surrogate medical decision maker: Man Swanson, father or Samia Hale, sister. Code status: Full code. Smoking status: Never smoker Second hand tobacco smoke exposure: No Alcohol intake: never Substance use: never Substance use type: does not use Additional living arrangements comments: Resident at [facility]. Spiritual care concerns: No Exam Narrative: APPEARANCE: Well appearing, no pain, no distress, well-nourished. HEAD: normocephalic, atraumatic. EYES: PERRLA/EOMI, conjunctivae clear. NOSE: Normal no drainage EARS:TMS clear with good light reflex. THROAT: Pharynx clear, no exudate. NECK: Supple. No adenopathy, no masses. RESPIRATORY: Airway patent, respirations nonlabored. Clear to auscultation bilaterally, no rales, rhonchi, wheezing. CARDIOVASCULAR: Regular rate and rhythm without murmurs rubs or gallops. ABDOMINAL: G-tube appears to be in place, colostomy bag appears to be unseated in the right lower quadrant MUSCULOSKELETAL: Moves all extremities. Strength/ROM intact, No edema, No calf tenderness. NEURO: Moving all limbs equally, at his previous neuro baseline. Alert SKIN: Warm, dry. Normal Color Course Vital Signs Vital signs: Vital Signs Temperature 97.9 F 08/23/24 10:39 Pulse Rate 95 08/23/24 10:39 Respiratory Rate 20 08/23/24 10:39 Blood Pressure 118/79 08/23/24 10:39 Pulse Oximetry 100 08/23/24 10:39 Oxygen Delivery Room Air 08/23/24 10:39 Temperature 98.1 F 08/23/24 16:02 Pulse Rate 78 08/23/24 16:02 Respiratory Rate 16 08/23/24 16:02 Blood Pressure 116/78 08/23/24 16:02 Pulse Oximetry 98 08/23/24 16:02 Oxygen Delivery Room Air 08/23/24 10:[address] [facility] Narrative Medical decision making narrative: 43-year-old male presents to the emergency department for evaluation of multiple issues. Patient's Cardona catheter was replaced and is functioning properly Patient's G-tube was evaluated and showed proper placement. Patient did have evaluation by the ostomy nurse and patient's ostomy was properly seated. Patient is being discharged
== END 2024-08-23 16:48 ==
PROVIDERS: Emergency Provider Emergency Medicine; PCP Internal Medicine
DX: K94.03 Colostomy malfunction (principal); Z46.6 Encounter for fitting and adjustment of urinary device; Z93.1 Gastrostomy status; F84.0 Autistic disorder; Z90.49 Acquired absence of other specified parts of digestive tract; R62.50 Unspecified lack of expected normal physiological development in childhood
CPT/HCPCS: 51702; 99283

== ENCOUNTER 2024-09-19 14:07 | Emergency (ER) | payer OTHER, SELFPAY ==
--- NOTE | ~2024-09-19 | XR_ITS ---
XR abdomen gastric tube insert DATE: 09/19/2024 14:40 INDICATION: Gastrostomy tube replacement TECHNIQUE: Single portable supine AP exposure of the abdomen after injection of 30 CC Omnipaque 350 c ontrast material through the replaced gastrostomy 2 COMPARISON: 03/06/2024 KUB FINDINGS: A gastrostomy tube overlies the lower body of the stomach. Radiopaque contrast material is noted within the gastric lumen. No extravasated contrast material is noted. No evidence of bowel obstruction or visceromegaly or significant abnormal calcification of the abdome n or pelvis. IMPRESSION: Successful gastrostomy tube placement in lower body of stomach Reviewed, dictated and finalized at Location [facility]. Reviewed, dictated and finalized at location A.
[2024-09-19 14:10] VITALS: BP 106/91; PULSE 84; RESP 18; TEMP 36.6; O2SAT 98
--- NOTE | 2024-09-19 14:20 | ED_ITS ---
HPI - General Adult General Chief complaint: Unspecified Stated complaint: ?chewed thru g tube Time Seen by Provider: 09/19/24 14:12 History of Present Illness HPI narrative: Patient is a 44-year-old male who presents ER with G-tube issues. He chewed through the proximal portion of his feeding to have and now any feeds would not be able going to his abdomen. Balloon is still inflated. Patient is nonverbal due to cognitive delay. Related Data Home Medications Medication Instructions Recorded Confirmed polyethylene glycol 3350 17 17 g feeding tube DAILY 01/09/24 07/01/24 gram/dose oral powder (Miralax) sennosides 8.6 mg-docusate sodium 1 tablet PO Q12H 01/09/24 07/01/24 50 mg tablet (Senna Plus) Allergies Allergy/AdvReac Type Severity Reaction Status Date / Time No Known Allergies Allergy Verified 09/19/24 14:17 Review of Systems Review of Systems: ROS unobtainable: Yes unobtainable due to mental status PMFSH Past Medical History Medical History (Updated 09/19/24 @ 14:25 by Shahid Gutierrez MD) Autism Chronic indwelling Cardona catheter Cognitive developmental delay Surgical History Surgical History History of exploratory laparotomy (09/2022) Exploratory laparotomy with sigmoid colon resection and colostomy for ischemic bowel. History of gastrostomy tube placement Family History Family History Other Family history unknown Social History Social History (Updated 07/01/24 @ 15:08 by Trish Restrepo APRN) Social History: Patient lives in [facility]. Surrogate medical decision maker: Man Swanson, father or Samia Hale, sister. Code status: Full code. Smoking status: Never smoker Second hand tobacco smoke exposure: No Alcohol intake: never Substance use: never Substance use type: does not use Additional living arrangements comments: Resident at [facility]. Spiritual care concerns: No Exam Narrative: GENERAL: Well-appearing, well-nourished, and in no acute distress. HEAD: Normocephalic, atraumatic. ENT: Mucous membranes moist. CHEST: Clear to auscultation. No respiratory distress. HEART: Regular rate and rhythm. Normal peripheral pulses. ABDOMEN: Soft, nontender, nondistended. G-tube site normal but g-tube does have a chewed out section. EXTREMITIES: Normal range of motion. No edema. PSYCH: Normal mood and affect. Course Course Emergency Course: G-tube exchange. Placement confirmed by x-ray. Discharge. Vital Signs Vital signs: Vital Signs Temperature 97.9 F 09/19/24 14:10 Pulse Rate 84 09/19/24 14:10 Respiratory Rate 18 09/19/24 14:10 Blood Pressure 106/91 H 09/19/24 14:10 Pulse Oximetry 98 09/19/24 14:10 Oxygen Delivery Room Air 09/19/24 14:10 Temperature 97.9 F 09/19/24 14:10 Pulse Rate 84 09/19/24 14:10 Respiratory Rate 18 09/19/24 14:10 Blood Pressure 106/91 H 09/19/24 14:10 Pulse Oximetry 98 09/19/24 14:10 Oxygen Delivery Room Air 09/19/24 14:10 Procedures Feeding Tube Replacement Feeding Tube #1: Feeding Tube Placement Date: 09/19/24 Feeding Tube Placement Time: 14:20 Type of Tube: gastrostomy Insertion Site Prior to Procedure: clean Tube Used for Reinsertion: other (gastrostomy) Romanian Tube Size (F): 16 Balloon size (mL): 5 Verification of Placement: KUB and gastrografin injection Tube Secured by: tape/dressing Patient Tolerated Procedure: well Medical Decision Making Vital Signs Vital Signs: Vital Signs Temperature 97.9 F 09/19/24 14:10 Pulse Rate 84 09/19/24 14:10 Respiratory Rate 18 09/19/24 14:10 Blood Pressure 106/91 H 09/19/24 14:10 Pulse Oximetry 98 09/19/24 14:10 Oxygen Delivery Room Air 09/19/24 14:10 Temperature 97.9 F 09/19/24 14:10 Pulse Rate 84 09/19/24 14:10 Respiratory Rate 18 09/19/24 14:10 Blood Pressure 106/91 H 09/19/24 14:10 Pulse Oximetry 98 09/19/24 14:10 Oxygen Delivery Room Air 09/19/24 14:10 Imaging Data Radiologist's impression: ITS Impressions Abdomen X-Ray 09/19/24 15:04 IMPRESSION: Successful gastrostomy tube placement in lower body of stomach Discharge Plan Discharge Clinical Impression: Malfunction of gastrostomy tube Patient Disposition: Home, Self-Care Condition: Stable Additional Instructions: Return the ER if you have additional issues with your feeding tube. Prescriptions: No Action famotidine 20 mg Tablet 20 mg feeding tube Q12HR 30 Days Qty: 60 0RF ondansetron HCl 4 mg tablet 4 mg PO Q6H PRN (Reason: nausea and vomiting) Qty: 60 0RF Hold Instructions: Resume on 01/18/24. Hold while taking PO Levofloxacin amoxicillin-pot clavulanate 875-125 mg tablet 1 tablet PO Q12H Qty: 5 0RF sennosides-docusate sodium [Senna Plus] 8.6-50 mg Tablet 1 tablet PO Q12H polyethylene glycol 3350 [Miralax] 17 gram/dose Powder 17 g feeding tube DAILY Follow-up/Referrals: Kal,MD Thomas [Primary Care Provider] - 1 Week
--- NOTE | 2024-09-19 14:32 | PC.NURSE ---
G-tube changed by Dr. Gutierrez.
--- NOTE | 2024-09-19 14:54 | PC.NURSE ---
Called report to Maged at [facility] [place], [place].
== END 2024-09-19 16:59 ==
PROVIDERS: Emergency Provider Emergency Medicine; PCP Internal Medicine
DX: K94.23 Gastrostomy malfunction (principal); F84.0 Autistic disorder
CPT/HCPCS: 43762; 99283

== ENCOUNTER 2024-10-06 09:52 | Day surgery (SDC) | payer OTHER, SELFPAY ==
[2024-10-06 09:51] VITALS: BP 131/88; PULSE 103; RESP 15; TEMP 36.4; O2SAT 96
--- NOTE | 2024-10-06 10:08 | ED_ITS ---
HPI - General Adult General Chief complaint: Unspecified Stated complaint: pulled out g-tube Time Seen by Provider: 10/06/24 09:59 History of Present Illness HPI narrative: 44-year-old male G-tube dependent presents to the emergency department again for having dislodged G-tube. Patient was just evaluated emergency department for having dislodged G-tube and this was replaced by GI. shelter states that the patient pulled out his G-tube but sometime today. Patient is autistic and is opposed to any physical interaction. Patient's last G-tube was a 20 [place]. Related Data Home Medications Medication Instructions Recorded Confirmed polyethylene glycol 3350 17 17 g feeding tube DAILY 01/09/24 09/28/24 gram/dose oral powder (Miralax) sennosides 8.6 mg-docusate sodium 1 tablet PO Q12H 01/09/24 09/28/24 50 mg tablet (Senna Plus) hydroxyzine pamoate 25 mg capsule 25 mg PO BID 09/28/24 09/28/24 promethazine 12.5 mg tablet 12.5 mg feeding tube DAILY 09/28/24 09/28/24 Allergies Allergy/AdvReac Type Severity Reaction Status Date / Time No Known Allergies Allergy Verified 10/06/24 12:34 Review of Systems Review of Systems: All systems reviewed & are unremarkable except as noted in HPI and below PMFSH Past Medical History Medical History (Updated 10/06/24 @ 19:26 by Gabo Boswell MD) Autism Chronic indwelling Cardona catheter Cognitive developmental delay Surgical History Surgical History History of exploratory laparotomy (09/2022) Exploratory laparotomy with sigmoid colon resection and colostomy for ischemic bowel. History of gastrostomy tube placement Family History Family History Other Family history unknown Social History Social History (Updated 07/01/24 @ 15:08 by Trish Restrepo APRN) Social History: Patient lives in [facility]. Surrogate medical decision maker: Man Swanson, father or Samia Hale, sister. Code status: Full code. Smoking status: Never smoker Second hand tobacco smoke exposure: No Alcohol intake: never Substance use: never Substance use type: does not use Additional living arrangements comments: Resident at [facility]. Spiritual care concerns: No Exam Narrative: APPEARANCE: well-appearing HEAD: normocephalic, atraumatic. EYES: PERRLA/EOMI, conjunctivae clear. NOSE: Normal no drainage EARS:TMS clear with good light reflex. THROAT: Pharynx clear, no exudate. NECK: Supple. No adenopathy, no masses. RESPIRATORY: Airway patent, respirations nonlabored. Clear to auscultation bilaterally, no rales, rhonchi, wheezing. CARDIOVASCULAR: Regular rate and rhythm without murmurs rubs or gallops. ABDOMINAL: Soft, nontender, nondistended, normal bowel sounds, G-tube site well-appearing but without G-tube MUSCULOSKELETAL: Moves all extremities. Strength/ROM intact, No edema, No calf tenderness. NEURO: Alert. SKIN: Warm, dry. Normal Color Course Vital Signs Vital signs: Vital Signs Temperature 97.6 F 10/06/24 09:51 Pulse Rate 103 H 10/06/24 09:51 Respiratory Rate 15 10/06/24 09:51 Blood Pressure 131/88 10/06/24 09:51 Pulse Oximetry 96 10/06/24 09:51 Oxygen Delivery Room Air 10/06/24 09:51 Temperature 96.9 F L 10/06/24 12:35 Pulse Rate 104 H 10/06/24 12:35 Respiratory Rate 16 10/06/24 12:35 Blood Pressure 120/66 10/06/24 12:35 Pulse Oximetry 97 10/06/24 12:35 Oxygen Delivery Room Air 10/06/24 12:35 Medical Decision Making [facility] Narrative Medical decision making narrative: 44-year-old male presents emergency department for evaluation for a G-tube dislodged. Patient is very opposed to having the G-tube replaced. Patient was treated with 2 mg IM Ativan and this did not help to replace the tube. Patient is also being given 5 mg of IM Haldol in this was also not sufficient to allow for placement of the G-tube. Case was discussed with GI and patient will be taken to the operating room to have the G-tube placed. Differential Diagnosis Differential Diagnosis: Vital Signs Vital Signs: Vital Signs Temperature 97.6 F 10/06/24 09:51 Pulse Rate 103 H 10/06/24 09:51 Respiratory Rate 15 10/06/24 09:51 Blood Pressure 131/88 10/06/24 09:51 Pulse Oximetry 96 10/06/24 09:51 Oxygen Delivery Room Air 10/06/24 09:51 Temperature 96.9 F L 10/06/24 12:35 Pulse Rate 104 H 10/06/24 12:35 Respiratory Rate 16 10/06/24 12:35 Blood Pressure 120/66 10/06/24 12:35 Pulse Oximetry 97 10/06/24 12:35 Oxygen Delivery Room Air 10/06/24 12:35 Discharge Plan Discharge Clinical Impression: Dislodged gastrostomy tube Patient Disposition: Still a Patient Condition: Stable
[2024-10-06] MEDS: LORazepam INJ (*CRX) 2 MG/ML VIAL IM (10:14)
[2024-10-06] MEDS: HALOPERIDOL LACTATE 5 MG/ML VIAL IM (10:30)
[2024-10-06 10:32] VITALS: BP 131/88; PULSE 107; RESP 15; O2SAT 97
--- NOTE | 2024-10-06 11:45 | PC.NURSE ---
Pt sister Samia Hale contacted about pt being brought to ED who requests we call with any updates
[2024-10-06 11:51] VITALS: BP 114/75; PULSE 103; RESP 14; O2SAT 96
[2024-10-06 12:28] VITALS: BP 120/66; PULSE 112; RESP 15; TEMP 36.5; O2SAT 97
--- NOTE | 2024-10-06 12:33 | PC.NURSE ---
RN called pt sister Samia Hale and informed her that pt was being taken to GI lab for G tube replacement. Rn also called and spoke with Samia at [facility] and informed her that the pt was being taken to the GI lab for G tube replacement
[2024-10-06 12:35] VITALS: BP 120/66; PULSE 104; RESP 16; TEMP 36.1; O2SAT 97
--- NOTE | 2024-10-06 12:46 | SUR.PREOP ---
Times - 1240 Time Out Called: 1241 Procedure Start: 1241 Procedure End:1245 Position and Devices - Right lateral Position: Positioning Devices: Pre-Procedure Assessment - Site and Procedure Verified w Patient and/or Others as Appropriate: Yes Verification Coincides w Consent, H&P, Endoscopy Schedule, and Pre-Op Orders: Yes X-Rays/Imaging Studies in Room and/or Implants on Site:Yes Verified Operative Side Marked YES When Applicable: Yes Preop Assessment Completed By: Sujatha Ribeiro Time Out - Entire Operative Team Participates and Confirms: Yes Correct Patient, Procedure, Side/Site and Position: Yes Availability of Implants, Special Equipment and Requests: Yes Preop Antibiotics Given within 1 Hour of Incision: N/A Assessment of Skin Prep Dry Time: N/A Prep = Surgery Prep Solution: Site Prepped: Prepped By: Staff - Bag Shaker: Lakesha Rdz Lumber Driver: Non Pharmacy Medications - Time: Name: Strength: Dose: Route: Site: Given By: Lot Number: Expiration Date: Actual Procedures - Description: Successful replacement of Gastrostomy tube Side: Wound Class: Surgeon: Dr. Ortega Severity: Preop Diagnosis: G-tube dislodged Postop Diagnosis: Gastrostomy tube replaced Transfer Data - [facility] Transfer Method: Ambulance Complications: [place] Events: Report Given To: Completed Date/Time: 10/06/2024 1257 Completed By: Sujatha Ribeiro
--- NOTE | 2024-10-06 12:48 | P.HP_ITS ---
History of Present Illness History of Present Illness Consent: Risks, benefits, and alternatives have been discussed and questions answered. Patient agrees to proceed with procedure. Chief complaint: pulled out g-tube Narrative: Ricky Swanson is a 44 year old male significant history of autism with cognitive developmental delay, with colostomy, previous G-tube and indwelling Cardona catheter who resides at a senior care and just pulled g-tube Review of Systems Review of Systems: All systems reviewed & are unremarkable except as noted in HPI and below PMFSH Past Medical History Medical History (Updated 09/28/24 @ 16:24 by Suleman Mei MD) Autism Chronic indwelling Cardona catheter Cognitive developmental delay Surgical History Surgical History History of exploratory laparotomy (09/2022) Exploratory laparotomy with sigmoid colon resection and colostomy for ischemic bowel. History of gastrostomy tube placement Family History Family History Other Family history unknown Social History Social History (Updated 07/01/24 @ 15:08 by Trish Restrepo APRN) Social History: Patient lives in [facility]. Surrogate medical decision maker: Man Swanson, father or Samia Hale, sister. Code status: Full code. Smoking status: Never smoker Second hand tobacco smoke exposure: No Alcohol intake: never Substance use: never Substance use type: does not use Additional living arrangements comments: Resident at [facility]. Spiritual care concerns: No Meds Home Medications and Allergies Home Medications Medication Instructions Recorded Confirmed Type famotidine 20 mg tablet 20 mg feeding tube Q12HR 30 days 11/08/22 09/28/24 Rx #60 tabs polyethylene glycol 3350 17 17 g feeding tube DAILY 01/09/24 09/28/24 History gram/dose oral powder (Miralax) sennosides 8.6 mg-docusate sodium 1 tablet PO Q12H 01/09/24 09/28/24 History 50 mg tablet (Senna Plus) hydroxyzine pamoate 25 mg capsule 25 mg PO BID 09/28/24 09/28/24 History promethazine 12.5 mg tablet 12.5 mg feeding tube DAILY 09/28/24 09/28/24 History Allergies Allergy/AdvReac Type Severity Reaction Status Date / Time No Known Allergies Allergy Verified 10/06/24 12:34 Vital Signs Vital Signs - 24 hr 10/06/24 09:51 10/06/24 10:32 10/06/24 11:51 Temperature 97.6 F Pulse Rate 103 H 107 H 103 H Respiratory Rate 15 15 14 Blood Pressure 131/88 131/88 114/75 Pulse Oximetry 96 97 96 Oxygen Delivery Room Air 10/06/24 12:28 10/06/24 12:35 Temperature 97.7 F 96.9 F L Pulse Rate 112 H 104 H Respiratory Rate 15 16 Blood Pressure 120/66 120/66 Pulse Oximetry 97 97 Oxygen Delivery Room Air Exam Narrative: APPEARANCE: Well appearing, no pain, no distress. HEAD: normocephalic, atraumatic. EYES: PERRLA/EOMI, conjunctivae clear. NOSE: Normal no drainage NECK: Supple. RESPIRATORY: Airway patent, respirations nonlabored. Clear to auscultation bilaterally, no rales, rhonchi, wheezing. CARDIOVASCULAR: Regular rate. ABDOMINAL: Colostomy bag intact, gastrostomy site NEURO: autism, not following commands SKIN: Warm, dry. Normal Color Assessment and Plan Assessment and plan (1) Dislodged gastrostomy tube: Code(s): T85.528A - Displacement of other gastrointestinal prosthetic devices, implants and grafts, initial encounter Status: Acute Assessment and Plan: will try to replace at bedside, if unable then we have to repeat EGD
--- NOTE | 2024-10-06 13:12 | SUR.PREOP ---
Gave report to Samia CENTENO at [facility] for patient to return to facility.
--- NOTE | 2024-10-06 13:15 | SUR.PREOP ---
Spoke with patient's sister, Samia, informed that G tube was able to be replaced at bedside and Ricky will be able to be discharged back to facility.
--- NOTE | 2024-10-06 14:27 | W.PM.PROC2 ---
Procedure Note - Detailed Date of Procedure 10/06/24 Pre-op Diagnosis pulled out g-tube Post-op Diagnosis Same Procedure Performed g-tube replacement Surgeon Suleman Mei MD Anesthesia None Description of Procedure I used 18 Fr G-tube and advanced through same gastrostomy site and secured in position at 2.5cm, balloon inflated with 20 ml water. Ok to start using and he can discharged back to [facility]. Please use abdominal binder to prevent pulling it out again.
== END 2024-10-06 14:16 ==
LOC: ANHED 10:02 → ANHSURGERY 12:19
PROVIDERS: Emergency Provider Emergency Medicine; PCP Internal Medicine; Visit Provider Internal Medicine Gastroenterology
PROC: 0DP08DZ Removal of Intraluminal Device from Upper Intestinal Tract, Via Natural or Artificial Opening Endoscopic (ICD-10-PCS; CPT 43247; principal; 2024-10-06 15:30)
DX: T85.528A Displacement of other gastrointestinal prosthetic devices, implants and grafts, initial encounter (principal); Y83.3 Surgical operation with formation of external stoma as the cause of abnormal reaction of the patient, or of later complication, without mention of misadventure at the time of the procedure; F84.0 Autistic disorder
CPT/HCPCS: 43762; 99211; G0463; J1630; J2060

== ENCOUNTER 2025-01-07 23:53 | Emergency (ER) | payer OTHER, SELFPAY ==
--- NOTE | ~2025-01-07 | XR_ITS ---
EXAMINATION: XR abdomen gastric tube rechec DATE: 01/08/2025 01:09 INDICATION: Leaking percutaneous gastrostomy tube TECHNIQUE: A supine view of the abdomen and lower chest was obtained for evaluation of feeding tube placement. COMPARISON: 08/23/2024 FINDINGS: Percutaneous gastrostomy tube with tip at the body the stomach with injected contrast seen throughout the stomach and into the proximal duodenum. No extraluminal contrast extravasation. No dilated loops of gas-filled bowel to suggest obstruction. Left lower quadrant ostomy. Visualized lung bases are cl ear. Heart size is normal. IMPRESSION: 1. Presents gastrostomy tube tip and injected contrast in the stomach with no extraluminal extravasat ion. Reviewed, dictated and finalized at location [facility]. [facility] IMPRESSION: 1. Presents gastrostomy tube tip and injected contrast in the stomach with no e xtraluminal extravasation.
[2025-01-07 23:57] VITALS: BP 132/79; PULSE 86; RESP 15; TEMP 36.6; O2SAT 97
[2025-01-08] MEDS: WATER FOR IRRIGATION, STERILE 500 ML BOTTLE (00:30)
--- NOTE | 2025-01-08 00:30 | PC.NURSE ---
This RN checked Gtube for patency. When irrigating with sterile water, water came out of another lumen that has a missing cap. The cap appears to be tore off. When pinching off the lumen, this RN is able to flush tube and aspirate stomach contents.
--- NOTE | 2025-01-08 00:33 | ED_ITS ---
HPI - General Adult General Chief complaint: Unspecified <KOBE Parnell Last Filed: 01/08/25 02:25> Stated complaint: LEAKING G-TUBE <KOBE Parnell Last Filed: 01/08/25 02:25> Time Seen by Provider: 01/08/25 00:00 <KOBE Parnell Last Filed: 01/08/25 02:25> Source: patient and old records reviewed <KOBE Parnell Last Filed: 01/08/25 02:25> Mode of arrival: EMS <KOBE Parnell Last Filed: 01/08/25 02:25> Limitations: clinical condition <KOBE Parnell Last Filed: 01/08/25 02:25> History of Present Illness HPI narrative: Patient is a 44 y/o male, with PMH of autism, cognitive impairment, colostomy, chronic indwelling Cardona catheter, who presents to the ED via EMS with report of G-tube malfunction. Patient is a resident of [facility]. Per [facility] report, patient's G-tube was leaking today. Sent here for further evaluation. Per records, patient has had issues with G-tube in the past and required replacement in the OR x2 in September last year. It appears that patient's G-tube size was an 18F most recently. Patient presents today with 12F tube. <KOBE Parnell Last Filed: 01/08/25 02:25> Related Data Home medications: Home Medications ?Medication ?Instructions ?Recorded ?Confirmed ?Last Taken ?Type polyethylene glycol 3350 17 17 g feeding tube DAILY 01/09/24 09/28/24 Unknown History gram/dose oral powder (Miralax) sennosides 8.6 mg-docusate sodium 1 tablet PO Q12H 01/09/24 09/28/24 Unknown History 50 mg tablet (Senna Plus) hydroxyzine pamoate 25 mg capsule 25 mg PO BID 09/28/24 09/28/24 Unknown History promethazine 12.5 mg tablet 12.5 mg feeding tube DAILY 09/28/24 09/28/24 Unknown History <Sayda Garcia PA-C - Last Filed: 01/08/25 02:25> Allergies/adverse reactions: Allergies Allergy/AdvReac Type Severity Reaction Status Date / Time No Known Allergies Allergy Verified 01/08/25 00:02 <Sayda Garcia PA-C - Last Filed: 01/08/25 02:25> Review of Systems Review of Systems: All systems reviewed & are unremarkable except as noted in HPI. <Sayda Garcia PA-C - Last Filed: 01/08/25 02:25> All systems reviewed & are unremarkable except as noted in HPI and below <Sayda Garcia PA-C - Last Filed: 01/08/25 02:25> [facility] Past Medical History Medical History: Medical History Chronic indwelling Cardona catheter Cognitive developmental delay Autism <Sayda Garcia PA-C - Last Filed: 01/08/25 02:25> Surgical History Surgical History: Surgical History History of gastrostomy tube placement History of exploratory laparotomy (09/2022) Exploratory laparotomy with sigmoid colon resection and colostomy for ischemic bowel. <Sayda Garcia PA-C - Last Filed: 01/08/25 02:25> Family History Family History: Family History Other Family history unknown <Sayda Garcia PA-C - Last Filed: 01/08/25 02:25> Social History Social History: Social History Social History: Patient lives in [facility]. Surrogate medical decision maker: Man Swanson, father or Samia Hale, sister. Code status: Full code. Smoking status: Never smoker Second hand tobacco smoke exposure: No Alcohol intake: never Substance use: never Substance use type: does not use Additional living arrangements comments: Resident at [facility]. Spiritual care concerns: No <Sayda Garcia PA-C - Last Filed: 01/08/25 02:25> Exam Narrative: GENERAL: Well appearing, non-toxic, in no acute distress. HEAD: Normocephalic, atraumatic. RESPIRATORY: Airway patent, respirations nonlabored. CARDIOVASCULAR: Regular rate and rhythm without murmurs, rubs, or gallops. ABDOMINAL: Soft, no appreciable tenderness, nondistended. G-tube in left upper quadrant. Area surrounding stoma appears clean dry and intact. No significant drainage or erythema. Colostomy bag in left lower quadrant. MUSCULOSKELETAL: Moves all extremities. No gross deformities. SKIN: Warm, dry, normal color. NEURO: Alert, follows commands, nonverbal. No ataxic movements. PSYCHIATRIC: Nonverbal but follows commands. <Sayda Garcia PA-C - Last Filed: 01/08/25 02:25> Course [facility]/PA Physician Supervision I agree with midlevel documentation; I performed the medical decision making component of this evaluation. Pt here w/ malfunctioning Gtube; We do not have the 12Fr G tube to replace the tube entirely unfortunately. On examination it appears one of the accessory ports cap broke off; after replacing the end of it with a stopcock, the actual G tube itself functions fine, as tested with drawing back stomach contents and it flushing without issue; also confirmed on KUB with no extravasation of contrast. Patient can f/u with their GI outpt for replacement for a custodial solution. Stable for dc back to [place]. <Pia Fu MD - Last Filed: 01/08/25 02:35> Vital Signs Vital signs: Vital Signs Temperature 97.9 F 01/07/25 23:57 Pulse Rate 86 01/07/25 23:57 Respiratory Rate 15 01/07/25 23:57 Blood Pressure 132/79 01/07/25 23:57 Pulse Oximetry 97 01/07/25 23:57 Oxygen Delivery Room Air 01/07/25 23:57 Temperature 97.9 F 01/07/25 23:57 Pulse Rate 86 01/07/25 23:57 Respiratory Rate 15 01/07/25 23:57 Blood Pressure 132/79 01/07/25 23:57 Pulse Oximetry 97 01/07/25 23:57 Oxygen Delivery Room Air 01/07/25 23:57 <Sayda Garcia PA-C - Last Filed: 01/08/25 02:25> Vital Signs Temperature 97.9 F 01/07/25 23:57 Pulse Rate 86 01/07/25 23:57 Respiratory Rate 15 01/07/25 23:57 Blood Pressure 132/79 01/07/25 23:57 Pulse Oximetry 97 01/07/25 23:57 Oxygen Delivery Room Air 01/07/25 23:57 Temperature 97.9 F 01/07/25 23:57 Pulse Rate 86 01/07/25 23:57 Respiratory Rate 15 01/07/25 23:57 Blood Pressure 132/79 01/07/25 23:57 Pulse Oximetry 97 01/07/25 23:57 Oxygen Delivery Room Air 01/07/25 23:57 <Pia Fu MD - Last Filed: 01/08/25 02:35> Medical Decision Making MDM Narrative Medical decision making narrative: Per records, patient has had issues with G-tube replacements being very difficult in the past, both due to difficulty passing tubing/contrast exstravasation and due to patient resistance to physical interaction r/t cognitive delay. Patient did require OR g-tube replacement under general anesthesia twice in September of last year. At that time, 18 British tube was used. Patient presents today with a 12 British G-tube. Unfortunately we do not have this sized tube here... Patient's current tube is missing a cap to one of the ports, which was causing feeding/fluid to leak out of that port. When the port opening is clamped shut, the tube is functional w/o leakage. I did confirm this with XR contrast imaging with port clamped. No contrast extravasation. We were able to find a stop cock to close off port opening that is missing the cap. With the stop cock in place, again, the tube is functional. Confirmed this with ED nurse, able to flush fluids easily, able to pull back gastric fluid. No leakage. Given that we do not have the appropriate sized tubing here to completely r eplace G-tube and that tube is now functional again without leakage, will avoid any further manipulation of tube to avoid complications or potential need for OR. There is no emergent need for G-tube replacement or GI consultation as tube is functional. Patient will need to follow-up with GI as an outpatient for with further replacement with 12 British tube. [facility] shelter was made aware of adaptation. Discussed return precautions. Discharged in stable condition. <Sayda Garcia PA-C - Last Filed: 01/08/25 02:25> Medical Records Medical records reviewed: Yes I reviewed the external patient's medical records. <Sayda Garcia PA-C - Last Filed: 01/08/25 02:25> Vital Signs Vital Signs: Vital Signs Temperature 97.9 F 01/07/25 23:57 Pulse Rate 86 01/07/25 23:57 Respiratory Rate 15 01/07/25 23:57 Blood Pressure 132/79 01/07/25 23:57 Pulse Oximetry 97 01/07/25 23:57 Oxygen Delivery Room Air 01/07/25 23:57 Temperature 97.9 F 01/07/25 23:57 Pulse Rate 86 01/07/25 23:57 Respiratory Rate 15 01/07/25 23:57 Blood Pressure 132/79 01/07/25 23:57 Pulse Oximetry 97 01/07/25 23:57 Oxygen Delivery Room Air 01/07/25 23:57 <Sayda Garcia PA-C - Last Filed: 01/08/25 02:25> Vital Signs Temperature 97.9 F 01/07/25 23:57 Pulse Rate 86 01/07/25 23:57 Respiratory Rate 15 01/07/25 23:57 Blood Pressure 132/79 01/07/25 23:57 Pulse Oximetry 97 01/07/25 23:57 Oxygen Delivery Room Air 01/07/25 23:57 Temperature 97.9 F 01/07/25 23:57 Pulse Rate 86 01/07/25 23:57 Respiratory Rate 15 01/07/25 23:57 Blood Pressure 132/79 01/07/25 23:57 Pulse Oximetry 97 01/07/25 23:57 Oxygen Delivery Room Air 01/07/25 23:57 <Pia Fu MD - Last Filed: 01/08/25 02:35> Imaging Data Attestation: I personally reviewed and interpreted this imaging study as follows: <Sayda Garcia PA-C - Last Filed: 01/08/25 02:25> Radiologist's impression: XR abdomen: PEG tube terminates in the stomach. <ANAIS Parnell Last Filed: 01/08/25 02:25> Discharge Plan Discharge Clinical Impression: Malfunction of gastrostomy tube <KOBE Parnell Filed: 01/08/25 02:25> Patient Disposition: [facility] <KOBE Parnell Last Filed: 01/08/25 02:25> Condition: Stable <KOBE Parnell Last Filed: 01/08/25 02:25> Instructions: Antibiotic Form, How to Use and Care for Your PEG Tube (DC) <KOBE Parnell Filed: 01/08/25 02:25> Additional Instructions: Patient's G-tube is functional with stopcock placed in extra port with broken cap. Patient will need to follow up with GI for official replacement of his correctly sized G-tube, but it is currently functional and patent as is. Call office on Friday to make appointment. Return to an ED for new or worsening concerns. <KOBE Parnell Last Filed: 01/08/25 02:25> Patient Language: Danish <KOBE Parnell Last Filed: 01/08/25 02:25> Prescriptions: No Action famotidine 20 mg Tablet 20 mg feeding tube Q12HR 30 Days Qty: 60 0RF sennosides-docusate sodium [Senna Plus] 8.6-50 mg Tablet 1 tablet PO Q12H polyethylene glycol 3350 [Miralax] 17 gram/dose Powder 17 g feeding tube DAILY promethazine 12.5 mg tablet 12.5 mg feeding tube DAILY hydroxyzine pamoate 25 mg capsule 25 mg PO BID <KOBE Parnell Last Filed: 01/08/25 02:25> Follow-up/Referrals: Kal,MD Thomas [Primary Care Provider] - Suleman Mei MD [Physician] - (GI) <ANAIS ParnellC - Last Filed: 01/08/25 02:25> Time of Disposition: 01:51 <Sayda Garcia PA-C - Last Filed: 01/08/25 02:25> 01:51 <Pia Fu MD - Last Filed: 01/08/25 02:35>
[2025-01-08 03:39] VITALS: BP 126/71; PULSE 79; RESP 15; O2SAT 99
[2025-01-08 06:52] VITALS: BP 125/104; PULSE 91; RESP 14; O2SAT 98
[2025-01-08 07:28] VITALS: BP 101/51; PULSE 86; RESP 14; TEMP 36.4; O2SAT 98
== END 2025-01-08 09:25 ==
PROVIDERS: Emergency Provider Physician Assistant; PCP Internal Medicine
DX: K94.23 Gastrostomy malfunction (principal); F84.0 Autistic disorder; Z93.3 Colostomy status; Z90.49 Acquired absence of other specified parts of digestive tract
CPT/HCPCS: 43762; 99283

== ENCOUNTER 2025-01-21 14:48 | Observation (INO) | payer OTHER, SELFPAY ==
[2025-01-21 14:51] VITALS: BP 119/78; PULSE 102; RESP 16; TEMP 36.9; O2SAT 100
--- NOTE | 2025-01-21 16:52 | ED_ITS ---
HPI - General Adult General Chief complaint: Unspecified Stated complaint: dislodged g tube Time Seen by Provider: 01/21/25 16:18 Source: EMS Mode of arrival: EMS History of Present Illness HPI narrative: 44 YEARS OLD MALE CAME FROM [facility] BY AMBULANCE BECAUSE HIS G-TUBE YOU BEING DISLODGED. SENIOR CARE UNSURE WHEN IT WAS REMOVED. PATIENT IS NONVERBAL AT BASELINE. Related Data Home Medications ?Medication ?Instructions ?Recorded ?Confirmed ?Last Taken ?Type polyethylene glycol 3350 17 17 g feeding tube DAILY 01/09/24 09/28/24 Unknown History gram/dose oral powder (Miralax) sennosides 8.6 mg-docusate sodium 1 tablet PO Q12H 01/09/24 09/28/24 Unknown History 50 mg tablet (Senna Plus) hydroxyzine pamoate 25 mg capsule 25 mg PO BID 09/28/24 09/28/24 Unknown History promethazine 12.5 mg tablet 12.5 mg feeding tube DAILY 09/28/24 09/28/24 Unknown History Allergies Allergy/AdvReac Type Severity Reaction Status Date / Time No Known Allergies Allergy Verified 01/08/25 00:02 Review of Systems Review of Systems: ROS unobtainable: Yes unobtainable due to mental status PMFSH Past Medical History Medical History Chronic indwelling Cardona catheter Cognitive developmental delay Autism Surgical History Surgical History History of gastrostomy tube placement History of exploratory laparotomy (09/2022) Exploratory laparotomy with sigmoid colon resection and colostomy for ischemic bowel. Family History Family History Other Family history unknown Social History Social History Social History: Patient lives in [facility]. Surrogate medical decision maker: Man Swanson, father or Samia Hale, sister. Code status: Full code. Smoking status: Never smoker Second hand tobacco smoke exposure: No Alcohol intake: never Substance use: never Substance use type: does not use Additional living arrangements comments: Resident at [facility]. Spiritual care concerns: No Exam Narrative: GENERAL APPEARANCE: WELL-DEVELOPED, WELL-NOURISHED, CONTRACTED ALL OVER SKIN: NORMAL COLOR HEAD: NORMOCEPHALIC, NONTRAUMATIC CHEST AND RESPIRATORY: AIRWAY PATENT, NO RESPIRATORY DISTRESS, NO ACCESSORY MUSCLE USE HEART: REGULAR RATE/RHYTHM ABDOMEN: FEEDING TUBE STOMA IS COMPLETELY CLOSED AND HAVE SCAB ON IT, GUARDING OF THE ABDOMINAL WALL DURING EXAM BECAUSE OF TENDERNESS AT THE STOMA, COLOSTOMY BAG IN PLACE NEUROLOGIC: PATIENT IS NONVERBAL Course Consultations Consultation #1: DR. ALVARADO ADMIT TO HOSPITALIST Date: 01/21/25 Vital Signs Vital signs: Vital Signs Temperature 36.9 C 01/21/25 14:51 Pulse Rate 102 H 01/21/25 14:51 Respiratory Rate 16 01/21/25 14:51 Blood Pressure 119/78 01/21/25 14:51 Pulse Oximetry 100 01/21/25 14:51 Oxygen Delivery Room Air 01/21/25 14:51 Temperature 36.9 C 01/21/25 14:51 Pulse Rate 102 H 01/21/25 14:51 Respiratory Rate 16 01/21/25 14:51 Blood Pressure 119/78 01/21/25 14:51 Pulse Oximetry 100 01/21/25 14:51 Oxygen Delivery Room Air 01/21/25 14:51 Medical Decision Making MDM Narrative Medical decision making narrative: PATIENT CAME WITH DISLODGED FEEDING TUBE OF UNKNOWN DURATION, PHYSICAL EXAMINATION SHOWING THAT THE FEEDING TUBE EXIT IS COMPLETELY CLOSED, AND HAVE SCAB ON IT ADMIT TO HOSPITALIST, DISCUSSED WITH DR. ALVARADO. Vital Signs Vital Signs: Vital Signs Temperature 36.9 C 01/21/25 14:51 Pulse Rate 102 H 01/21/25 14:51 Respiratory Rate 16 01/21/25 14:51 Blood Pressure 119/78 01/21/25 14:51 Pulse Oximetry 100 01/21/25 14:51 Oxygen Delivery Room Air 01/21/25 14:51 Temperature 36.9 C 01/21/25 14:51 Pulse Rate 102 H 01/21/25 14:51 Respiratory Rate 16 01/21/25 14:51 Blood Pressure 119/78 01/21/25 14:51 Pulse Oximetry 100 01/21/25 14:51 Oxygen Delivery Room Air 01/21/25 14:51 Critical Care Time Critical Care Time Critical Care Time: No Discharge Plan Discharge Clinical Impression: Encounter for feeding tube placement Patient Disposition: Still a Patient Condition: Stable Patient Language: Kiswahili Prescriptions: No Action famotidine 20 mg Tablet 20 mg feeding tube Q12HR 30 Days Qty: 60 0RF sennosides-docusate sodium [Senna Plus] 8.6-50 mg Tablet 1 tablet PO Q12H polyethylene glycol 3350 [Miralax] 17 gram/dose Powder 17 g feeding tube DAILY promethazine 12.5 mg tablet 12.5 mg feeding tube DAILY hydroxyzine pamoate 25 mg capsule 25 mg PO BID Follow-up/Referrals: Kal,MD Thomas [Primary Care Provider] -
[2025-01-21 19:07] VITALS: BP 119/84; PULSE 98; RESP 18; O2SAT 99
[2025-01-21] MEDS: SODIUM CHLORIDE 0.9% IV 1,000 ML 999 ML IV CONT (19:11)
[2025-01-21] MEDS: DEXTROSE 5%/0.45% SOD CHL 1,000 ML 100 ML IV CONT (21:07)
[2025-01-21 21:09] LABS: Basophils Percent Auto 0.4 % (0.2-1.2); Eosinophils Absolute Auto 0.1 K/mm3 (0-0.3); Eosinophils Percent Auto 1.1 % (0-4.4); Hemoglobin 14.8 g/dL (14.0-18.0); Immature Granulocyte Absolute 0.04 K/mm3 (0.00-0.031); Immature Granulocyte Percent A 0.4 % (0-0.5); Lymphocytes Absolute Auto 3.22 K/mm3 (0.9-3.2); Lymphocytes Percent Auto 28.7 % (18.3-44.2); Mean Corpuscular HGB Conc 31.5 g/dl (32-36); Mean Corpuscular Hemoglobin 27.2 pg (26-34); Mean Corpuscular Volume 86.4 fl (80-100); Mean Platelet Volume 8.9 fl (7.4-10.4); Monocytes Percent Auto 8.7 % (2.6-8.5); Neutrophils Absolute Auto 6.8 K/mm3 (1.3-6.7); Neutrophils Percent Auto 60.7 % (45.5-73.1); Platelet Count Result 255 k/mm3 (150-375); Red Blood Count 5.44 M/mm3 (4.6-6.20); Red Cell Distribution Width 15.4 % (11.5-14.5); White Blood Count 11.2 K/mm3 (4.5-10.0)
[2025-01-21 21:20] VITALS: BP 114/68; PULSE 93; RESP 18; TEMP 37.1; O2SAT 95
--- NOTE | 2025-01-21 21:20 | ADMGEN ---
This patient, Ricky Swanson, was admitted to Medical Room 251-01. Patient/family oriented to hospital policies and general routines including ID bracelet, bed and alarms, visiting hours, pain management, procedures, bathroom and other care routines, personal items, smoking policy, room service/diet, and visiting hours. Information on how to activate the Rapid Response Team has been discussed. Patient/Family are encouraged to report perceived risks to care and to ask questions if they do not understand what they are told or what they should do.
--- NOTE | 2025-01-21 21:23 | PM.IMHP ---
H&P: HPI History of Present Illness Date/Time: 01/21/25 21:23 Chief Complaint: G-Tube Dislodged Narrative: 44 y/o M presents here with dislodged g-tube with PMH of cognitive developmental delay, autism, chronic indwelling Cardona, and chronic G-tube. The patient presents here from [facility] via EMS for evaluation of a dislodged g-tube. senior care was unsure when the G-tube was dislodged. The patient is nonverbal at baseline, therefore unable to contribute to HPI. Last presented with a 12 [place] tube on 01/08/2025 for reported G-tube malfunction i.e. leaking. A stopcock was replaced and the patient was discharged back to his facility. However today, the site appears scabbed over/closed. ED provider unable to replace G-tube. Initial VS at presentation: 98.5? F, HR 102, RR 16, 119/78, and 100% on RA. ED workup showed: WBC 11.2, no anemia, creatinine 0.69 and the normal GFR, glucose 92. Review of Systems Review of Systems: ROS unobtainable: Yes unobtainable due to mental status (Nonverbal) [facility] Past Medical History Medical History Chronic indwelling Cardona catheter Cognitive developmental delay Autism Surgical History Surgical History History of gastrostomy tube placement History of exploratory laparotomy (09/2022) Exploratory laparotomy with sigmoid colon resection and colostomy for ischemic bowel. Family History Family History Other Family history unknown Social History Social History Social History: Patient lives in [place] senior care. Surrogate medical decision maker: Man Swanson, father or Samia Hale, sister. Code status: Full code. Smoking status: Never smoker Second hand tobacco smoke exposure: No Alcohol intake: never Substance use: never Substance use type: does not use Additional living arrangements comments: Resident at [facility]. Spiritual care concerns: No Meds Home Medications and Allergies Home Medications ?Medication ?Instructions ?Recorded ?Confirmed ?Type famotidine 20 mg tablet 20 mg feeding tube Q12HR 30 days 11/08/22 01/21/25 Rx #60 tabs polyethylene glycol 3350 17 17 g feeding tube DAILY 01/09/24 01/21/25 History gram/dose oral powder (Miralax) sennosides 8.6 mg-docusate sodium 1 tablet PO Q12H 01/09/24 01/21/25 History 50 mg tablet (Senna Plus) promethazine 12.5 mg tablet 12.5 mg feeding tube DAILY 09/28/24 01/21/25 History Allergies Allergy/AdvReac Type Severity Reaction Status Date / Time No Known Allergies Allergy Verified 01/08/25 00:02 Vital Signs Vital Signs - 24 hr 01/21/25 14:51 01/21/25 19:07 01/21/25 21:20 Temperature 98.5 F 98.8 F Pulse Rate 102 H 98 93 Respiratory Rate 16 18 18 Blood Pressure 119/78 119/84 114/68 Pulse Oximetry 100 99 95 Oxygen Delivery Room Air Exam Const: General: comfortable and no acute distress Other: , male, nontoxic appearance. HENMT: Face/Nose/Sinus: Normal nares present Mouth: Yes moist mucous membranes Eyes: General: appearance normal, both eyes and all related structures Sclera: sclerae normal Pupils: Equal, round and reactive pupils present Other: difficult eye exam, noncompliant Resp: Effort & Inspection: normal respiratory effort Auscultation: clear to auscultation bilaterally Cardio: Rate: regular rate Rhythm: regular rhythm Other: no murmur, no rub, no ectopy GI: Other: abdomen soft, nondistended, nontender. Ostomy present, CDI. stoma pink and moist. g-tube site with dried blood and appears closed, difficult to assess as patient did not want to be touched. Skin: General skin exam: normal color and no rashes or lesions noted Wounds: no wounds Neuro: Other: nonverbal, moves all extremities. will nod briefly to simple questions. Extrem: General: normal to inspection Psych: Other: anxious/agitated with touch. flat affect. H&P: Results Labs Labs: Short CBC 01/21/25 Range/Units 21:04 WBC 11.2 H (4.5-10.0) K/mm3 Hgb 14.8 (14.0-18.0) g/dL Hct 47.0 (42.0-52.0) % Plt Count 255 (150-375) k/mm3 Assessment and Plan Assessment and plan (1) Dislodged gastrostomy tube: Code(s): T85.528A - Displacement of other gastrointestinal prosthetic devices, implants and grafts, initial encounter Status: Acute Assessment and Plan: - G-tube dislodged for an unknown amount of time, Site currently scabbed over - GI consulted for replacement - Q 6 Accu-Cheks with hypoglycemia protocol - D5 half saline at 100 mL/hour - home medications held, resume when tube replaced Plan Diet: NPO GI Prophylaxis: Not currently indicated DVT Prophylaxis: SCDs Lines: Peripheral Code Status: Full code Quality VTE Prophylaxis VTE prophylaxis: mechanical ordered Hospitalist MIPS Advance Care Plan I have confirmed that the patient's Advanced Care Plan is present, code status is documented, or surrogate decision maker is listed in patient medical record.: Yes Medication Reconciliation I have utilized all available resources to obtain, update and review the patients current medications (includes all prescriptions, OTC, herbals, cannabis, and nutritional supplements).: Yes
[2025-01-21 21:25] LABS: Alanine Aminotransferase 28 U/L (6-50); Albumin Level 4.1 g/dL (3.5-5.1); Alkaline Phosphatase 88 U/L (38-126); Anion Gap 13 mmol/L (4-12); Aspartate Amino Transferase 31 U/L (17-59); Bilirubin,Total 0.7 mg/dL (0.2-1.3); Blood Urea Nitrogen 18 mg/dL (9-20); Calcium 9.2 mg/dL (8.4-10.2); Carbon Dioxide 19 mmol/L (22-30); Chloride 105 mmol/L (98-107); Estimated CRCL calculation 74 ml/min; Estimated Glomerular Filt Rate > 60; Glucose 92 mg/dL (65-110); Potassium 4.5 mmol/L (3.4-5.0); Sodium 137 mmol/L (137-145)
[2025-01-22 00:36] LABS: Glucose Point of Care 101 mg/dl (65-105)
[2025-01-22 05:17] VITALS: BP 125/75; PULSE 90; RESP 18; TEMP 36.8; O2SAT 92
[2025-01-22 05:31] LABS: Glucose Point of Care 88 mg/dl (65-105)
--- NOTE | 2025-01-22 07:32 | P.PNIM_ITS ---
Progress Note: A&P Assessment and Plan (1) Dislodged gastrostomy tube: Code(s): T85.528A - Displacement of other gastrointestinal prosthetic devices, implants and grafts, initial encounter Status: Acute Assessment and Plan: - G-tube dislodged for an unknown amount of time, Site currently scabbed over - GI consulted for replacement - Q 6 Accu-Cheks with hypoglycemia protocol - D5 half saline at 100 mL/hour - home medications held, resume when tube replaced Plan Diet: NPO GI Prophylaxis: Not currently indicated DVT Prophylaxis: SCDs Lines: Peripheral Code Status: Full code Subjective Date/time seen: 01/22/25 07:32 Interval history: 44 y/o M presents here with dislodged g-tube with PMH of cognitive developmental delay, autism, chronic indwelling Cardona, and chronic G-tube. Discussed with equal opportunity director. PEG tube placement tomorrow. Review of Systems Review of Systems: ROS unobtainable: Yes unobtainable due to mental status (Nonverbal) Exam Const: General: comfortable and no acute distress Other: , male, nontoxic appearance. HENMT: Face/Nose/Sinus: Normal nares present Mouth: Yes moist mucous membranes Eyes: General: appearance normal, both eyes and all related structures S clera: sclerae normal Pupils: Equal, round and reactive pupils present Other: difficult eye exam, noncompliant Resp: Effort & Inspection: normal respiratory effort Auscultation: clear to auscultation bilaterally Cardio: Rate: regular rate Rhythm: regular rhythm Other: no murmur, no rub, no ectopy GI: Other: abdomen soft, nondistended, nontender. Ostomy present, CDI. stoma pink and moist. g-tube site with dried blood and appears closed, difficult to assess as patient did not want to be touched. Skin: General skin exam: normal color and no rashes or lesions noted Wounds: no wounds Neuro: Cranial nerves: Yes Equal, round and reactive pupils present Other: nonverbal, moves all extremities. will nod briefly to simple questions. Extrem: General: normal to inspection Psych: Other: anxious/agitated with touch. flat affect. Objective Data Vital Signs Vital Signs: Vital Signs - 24 hr 01/21/25 14:51 01/21/25 19:07 01/21/25 21:20 Temperature 98.5 F 98.8 F Pulse Rate 102 H 98 93 Respiratory Rate 16 18 18 Blood Pressure 119/78 119/84 114/68 Pulse Oximetry 100 99 95 Oxygen Delivery Room Air 01/21/25 23:00 01/22/25 05:17 Temperature 98.3 F Pulse Rate 90 Respiratory Rate 18 Blood Pressure 125/75 Pulse Oximetry 92 Oxygen Delivery Room Air Intake/Output Intake/Output: Intake & Output 01/19/25 01/20/25 01/21/25 01/22/25 23:59 23:59 23:59 23:59 Intake Total 1000 0 Balance 1000 0 Meds/Results Medications: Active Medications Generic Name Dose Route Start Last Admin Trade Name Freq PRN Reason Stop Dose Admin Dextrose 12.5 gm 01/21/25 20:59 Dextrose 50% 25 Gm/50 Ml Syringe IV PUSH PRN PRN Hypoglycemia Protocol Glucagon 1 mg 01/21/25 20:59 Glucagon For Inj 1 Mg Vial IM PRN PRN Hypoglycemia Protocol Glucose 15 gm 01/21/25 20:59 Glucose Oral Gel 15 Gm Of Glucse In 37.5 Gm Tube PO PRN PRN Hypoglycemia Protocol Dextrose/Sodium Chloride 1,000 mls @ 100 mls/hr 01/21/25 18:45 01/21/25 21:07 Dextrose 5% Sodium Chloride 0.45% IV CONT 100 mls/hr .Q10H FARZAD Administration Dextrose 1,000 mls @ 100 mls/hr 01/21/25 20:59 Dextrose 5% 1,000 Ml IVPB PRN PRN Hypoglycemia Protocol Labs Labs: Laboratory Results - last 24 hr 01/21/25 01/21/25 01/22/25 21:04 23:57 05:27 WBC 11.2 H RBC 5.44 Hgb 14.8 Hct 47.0 MCV 86.4 MCH 27.2 MCHC 31.5 L RDW 15.4 H Plt Count 255 MPV 8.9 Immature Gran % (Auto) 0.4 Neut % (Auto) 60.7 Lymph % (Auto) 28.7 [place] % (Auto) 8.7 H Eos % (Auto) 1.1 Baso % (Auto) 0.4 Lymph # (Auto) 3.22 H [place] # (Auto) 1.0 H Eos # (Auto) 0.1 Baso # (Auto) 0.0 Abs Immat Gran (auto) 0.04 H Absolute Neuts (auto) 6.8 H Absolute Nucleated RBC 0.000 Nucleated RBC % 0.0 Sodium 137 Potassium 4.5 Chloride 105 Carbon Dioxide 19 L Anion Gap 13 H BUN 18 Creatinine 0.69 L Estim Creat Clear Calc 74 Estimated GFR > 60 Glucose 92 POC Capillary Glucose 101 88 Calcium 9.2 Total Bilirubin 0.7 AST 31 ALT 28 Alkaline Phosphatase 88 Total Protein 8.0 Albumin 4.1 Quality VTE Prophylaxis VTE prophylaxis: mechanical ordered Hospitalist MIPS Advance Care Plan I have confirmed that the patient's Advanced Care Plan is present, code status is documented, or surrogate decision maker is listed in patient medical record.: Yes Medication Reconciliation I have utilized all available resources to obtain, update and review the patients current medications (includes all prescriptions, OTC, herbals, cannabi s, and nutritional supplements).: Yes
[2025-01-22] MEDS: DEXTROSE 5%/0.45% SOD CHL 1,000 ML 100 ML IV CONT ×2 (07:33→18:22)
[2025-01-22 08:18] VITALS: O2SAT 96
[2025-01-22 08:48] LABS: Glucose Point of Care 101 mg/dl (65-105)
--- NOTE | 2025-01-22 09:35 | WPDGICN ---
Assessment and Plan Assessment and plan (1) Dislodged gastrostomy tube: Code(s): T85.528A - Displacement of other gastrointestinal prosthetic devices, implants and grafts, initial encounter Status: Acute Assessment and Plan: unfortunately site is closed, we have to place a new one endoscopically- will do it tomorrow order abx prior G-tube then we can start tube feeding again, will need abdominal binder to protect from pulling out again (2) Constipation: Code(s): K59.00 - Constipation, unspecified Status: Acute (3) Autism: Code(s): F84.0 - Autistic disorder Status: Chronic (4) Cognitive developmental delay: Code(s): F81.9 - Developmental disorder of scholastic skills, unspecified Status: Acute GI Consult Note Consult date/time: 01/22/25 09:35 Reason for consult: G-tube dislodged HPI: Ricky Swanson is a 44 year old male with significant history of autism with cognitive developmental delay, with colostomy, previous G-tube and indwelling Cardona catheter who resides at a intermediate. The patient is nonverbal in the history use obtained through chart review. He is well known to our service, he has pulled out his G-tube previously, last time I replaced with 18 Fr on 09/2024 and just recently in the ER with leaking but had 12 Taiwanese tube size on 01/08/2025, ER physician replaced stopcock and was discharged back to his facility. G-tube is not in position anymore and the site appears scabbed over/closed Review of Systems Review of Systems: ROS unobtainable: Yes unobtainable due to mental status PMFSH Past Medical History Medical History Chronic indwelling Cardona catheter Cognitive developmental delay Autism Surgical History Surgical History History of gastrostomy tube placement History of exploratory laparotomy (09/2022) Exploratory laparotomy with sigmoid colon resection and colostomy for ischemic bowel. Family History Family History Other Family history unknown Social History Social History Social History: Patient lives in [facility]. Surrogate medical decision maker: Man Swanson, father or Samia Hale, sister. Code status: Full code. Smoking status: Unknown if ever smoked Second hand tobacco smoke exposure: No Alcohol intake: never Substance use: never Substance use type: does not use Additional living arrangements comments: Resident at [facility]. Spiritual care concerns: No Meds Home Medications and Allergies Home Medications ?Medication ?Instructions ?Recorded ?Confirmed ?Type famotidine 20 mg tablet 20 mg feeding tube Q12HR 30 days 11/08/22 01/21/25 Rx #60 tabs polyethylene glycol 3350 17 17 g feeding tube DAILY 01/09/24 01/21/25 History gram/dose oral powder (Miralax) sennosides 8.6 mg-docusate sodium 1 tablet PO Q12H 01/09/24 01/21/25 History 50 mg tablet (Senna Plus) promethazine 12.5 mg tablet 12.5 mg feeding tube DAILY 09/28/24 01/21/25 History Allergies Allergy/AdvReac Type Severity Reaction Status Date / Time No Known Allergies Allergy Verified 01/08/25 00:02 Vital Signs Vital Signs - 24 hr 01/21/25 14:51 01/21/25 19:07 01/21/25 21:20 Temperature 98.5 F 98.8 F Pulse Rate 102 H 98 93 Respiratory Rate 16 18 18 Blood Pressure 119/78 119/84 114/68 Pulse Oximetry 100 99 95 Oxygen Delivery Room Air 01/21/25 23:00 01/22/25 05:17 01/22/25 08:18 Temperature 98.3 F Pulse Rate 90 Respiratory Rate 18 Blood Pressure 125/75 Pulse Oximetry 92 96 Oxygen Delivery Room Air Room Air Exam Const: General: comfortable and no acute distress Other: , male, nontoxic appearance. HENMT: Face/Nose/Sinus: Normal nares present Mouth: Yes moist mucous membranes Eyes: General: appearance normal, both eyes and all related structures Neck: Neck: supple Resp: Effort & Inspection: normal respiratory effort Auscultation: clear to auscultation bilaterally Cardio: Rate: regular rate Rhythm: regular rhythm GI: GI Palp: Yes Soft to palpation and No Guarding due to palpation present (GI) Auscultation: normal bowel sounds Other: Ostomy present, CDI. stoma pink and moist. g-tube site with dried blood and appears closed Skin: General skin exam: normal color and no rashes or lesions noted Wounds: no wounds Neuro: Cranial nerves: Yes Equal, round and reactive pupils present Other: nonverbal, moves all extremities. will nod briefly to simple questions. Extrem: General: normal to inspection Psych: Other: anxious/agitated with touch. flat affect. Results Labs 01/21/25 21:04 01/21/25 21:04 Labs: Short CBC 01/21/25 Range/Units 21:04 WBC 11.2 H (4.5-10.0) K/mm3 Hgb 14.8 (14.0-18.0) g/dL Hct 47.0 (42.0-52.0) % Plt Count 255 (150-375) k/mm3 BMP 01/21/25 21:04 Sodium 137 Potassium 4.5 Chloride 105 Carbon Dioxide 19 L BUN 18 Creatinine 0.69 L Glucose 92 Calcium 9.2 Liver Function 01/21/25 Range/Units 21:04 Total Bilirubin 0.7 (0.2-1.3) mg/dL AST 31 (17-59) U/L ALT 28 (6-50) U/L Alkaline Phosphatase 88 (38-126) U/L Albumin 4.1 (3.5-5.1) g/dL
[2025-01-22 12:29] LABS: Glucose Point of Care 89 mg/dl (65-105)
[2025-01-22 14:00] VITALS: BP 149/82; PULSE 83; RESP 16; TEMP 36.3; O2SAT 97
[2025-01-22 17:23] LABS: Glucose Point of Care 93 mg/dl (65-105)
[2025-01-22 20:00] VITALS: PULSE 80; RESP 18; O2SAT 95
--- NOTE | 2025-01-22 21:15 | PC.NURSE ---
On 01/22/25, the WINDOWS [employer] ADMINISTRATOR, Sissy Sims, provided care and completed [facility] documentation on this patient. I have reviewed the WINDOWS [employer] ADMINISTRATOR's documentation and agree with the findings.
[2025-01-22 22:00] VITALS: BP 133/84; PULSE 80; RESP 18; TEMP 36.6; O2SAT 95
[2025-01-23] VITALS (10 sets, daily range): BP systolic 94–141; BP diastolic 55–78; PULSE 80–114; RESP 16–20; TEMP 36.3–36.8; O2SAT 95–98
[2025-01-23 00:08] LABS: Glucose Point of Care 108 mg/dl (65-105)
[2025-01-23] MEDS: DEXTROSE 5%/0.45% SOD CHL 1,000 ML 100 ML IV CONT ×2 (04:30→16:11)
[2025-01-23 06:59] LABS: Glucose Point of Care 107 mg/dl (65-105)
[2025-01-23] MEDS: ceFAZolin 1 GM/NS 50 ML 1 GM/50 ML BAG IVPB (07:52)
[2025-01-23] MEDS: LACTATED RINGERS 1,000 ML 150 ML IV CONT (08:42)
--- NOTE | 2025-01-23 10:26 | PC.NURSE ---
0814 initial attempt for morning assessment, patient is not in their room. 0950 patient returns from surgery after G tube placement. Per surgery, okay to feed in 4 hrs . Consult to child health associate ordered. Patient calm and cooperative for assessment. IV fluids restarted. Abdominal binder in place, CDI. Waiting on orders from child health associate regarding feeding. Trio round with .
[2025-01-23 12:11] LABS: Glucose Point of Care 129 mg/dl (65-105)
--- NOTE | 2025-01-23 13:34 | PM.IMPN ---
Progress Note: A&P Assessment and Plan (1) Dislodged gastrostomy tube: Code(s): T85.528A - Displacement of other gastrointestinal prosthetic devices, implants and grafts, initial encounter Status: Acute Assessment and Plan: - G-tube dislodged for an unknown amount of time, Site currently scabbed over - GI consulted and placed PEG tube on 01/23 - Q 6 Accu-Cheks with hypoglycemia protocol - Will start feeding in 6 hours - Will DC D5 half saline at 100 mL/hour - home medications held, resume when tube replaced Plan Diet: NPO GI Prophylaxis: Not currently indicated DVT Prophylaxis: SCDs Lines: Peripheral Code Status: Full code Subjective Date/time seen: 01/23/25 13:34 Interval history: Placed PEG tube. Will start feeding in 6 hours. Consulted accounts receivable associate for PEG tube feeding recommendation. Review of Systems Review of Systems: ROS unobtainable: Yes unobtainable due to mental status (Nonverbal) Exam Const: General: comfortable and no acute distress Other: , male, nontoxic appearance. HENMT: Face/Nose/Sinus: Normal nares present Mouth: Yes moist mucous membranes Eyes: General: appearance normal, both eyes and all related structures Sclera: sclerae normal Pupils: Equal, round and reactive pupils present Other: difficult eye exam, noncompliant Resp: Effort & Inspection: normal respiratory effort Auscultation: clear to auscultation bilaterally Cardio: Rate: regular rate Rhythm: regular rhythm Other: no murmur, no rub, no ectopy GI: Other: abdomen soft, nondistended, nontender. Ostomy present, CDI. stoma pink and moist. g-tube site with dried blood and appears closed, difficult to assess as patient did not want to be touched. Skin: General skin exam: normal color and no rashes or lesions noted Wounds: no wounds Neuro: Cranial nerves: Yes Equal, round and reactive pupils present Other: nonverbal, moves all extremities. will nod briefly to simple questions. Extrem: General: normal to inspection Psych: Other: anxious/agitated with touch. flat affect. Objective Data Vital Signs Vital Signs: Vital Signs - 24 hr 01/22/25 14:00 01/22/25 20:00 01/22/25 22:00 Temperature 97.3 F L 97.8 F Pulse Rate 83 80 80 Respiratory Rate 16 18 18 Blood Pressure 149/82 H 133/84 Pulse Oximetry 97 95 95 Oxygen Delivery Room Air Oxygen Flow Rate 01/23/25 06:00 01/23/25 07:50 01/23/25 08:58 Temperature 97.5 F L 98.2 F Pulse Rate 80 95 95 Respiratory Rate 18 18 16 Blood Pressure 134/68 123/76 94/55 L Pulse Oximetry 95 95 95 Oxygen Delivery Room Air Nasal Cannula Oxygen Flow Rate 4 01/23/25 09:08 01/23/25 09:18 01/23/25 09:45 Temperature 97.4 F L Pulse Rate 100 98 100 Respiratory Rate 16 18 20 Blood Pressure 118/58 L 117/78 141/76 H Pulse Oximetry 97 97 98 Oxygen Delivery Room Air Room Air Oxygen Flow Rate 01/23/25 10:00 01/23/25 10:30 01/23/25 12:00 Temperature 98.1 F 97.7 F 98.3 F Pulse Rate 96 99 113 H Respiratory Rate 16 16 16 Blood Pressure 131/75 111/72 135/76 Pulse Oximetry 96 96 95 Oxygen Delivery Oxygen Flow Rate Intake/Output Intake/Output: Intake & Output 01/20/25 01/21/25 01/22/25 01/23/25 23:59 23:59 23:59 23:59 Intake Total 1000 1999 1050 Balance 1000 1999 1050 Meds/Results Medications: Active Medications Generic Name Dose Route Start Last Admin Trade Name Freq PRN Reason Stop Dose Admin Dextrose 12.5 gm 01/21/25 20:59 Dextrose 50% 25 Gm/50 Ml Syringe IV PUSH PRN PRN Hypoglycemia Protocol Glucagon 1 mg 01/21/25 20:59 Glucagon For Inj 1 Mg Vial IM PRN PRN Hypoglycemia Protocol Glucose 15 gm 01/21/25 20:59 Glucose Oral Gel 15 Gm Of Glucse In 37.5 Gm Tube PO PRN PRN Hypoglycemia Protocol Dextrose/Sodium Chloride 1,000 mls @ 100 mls/hr 01/21/25 18:45 01/23/25 04:30 Dextrose 5% Sodium Chloride 0.45% IV CONT 100 mls/hr .Q10H FARZAD Administration Dextrose 1,000 mls @ 100 mls/hr 01/21/25 20:59 Dextrose 5% 1,000 Ml IVPB PRN PRN Hypoglycemia Protocol Labs Labs: Laboratory Results - last 24 hr 01/22/25 01/23/2501/23/25 17:18 00:05 06:57 POC Capillary Glucose 93 108 H 107 H 01/23/25 12:01 POC Capillary Glucose 129 H Quality VTE Prophylaxis VTE prophylaxis: mechanical ordered Hospitalist MIPS Advance Care Plan I have confirmed that the patient's Advanced Care Plan is present, code status is documented, or surrogate decision maker is listed in patient medical record.: Yes Medication Reconciliation I have utilized all available resources to obtain, update and review the patients current medications (includes all prescriptions, OTC, herbals, cannabis, and nutritional supplements).: Yes
[2025-01-23 17:19] LABS: Glucose Point of Care 126 mg/dl (65-105)
[2025-01-24] VITALS: BP 120/72; PULSE 100; RESP 16; TEMP 36.9; O2SAT 96
[2025-01-24 00:36] LABS: Glucose Point of Care 126 mg/dl (65-105)
[2025-01-24] MEDS: DEXTROSE 5%/0.45% SOD CHL 1,000 ML 100 ML IV CONT (03:06)
[2025-01-24 05:45] VITALS: BP 127/62; PULSE 96; RESP 16; TEMP 37.6; O2SAT 94
[2025-01-24 06:34] LABS: Glucose Point of Care 122 mg/dl (65-105)
[2025-01-24] MEDS: ONDANSETRON INJ 4 MG/2 ML VIAL IV PUSH (06:34)
[2025-01-24 08:00] VITALS: BP 138/74; PULSE 88; RESP 16; TEMP 36.8; O2SAT 96
--- NOTE | 2025-01-24 08:55 | PM.DS ---
DS: Admitting Diagnosis Discharge Date 01/24/2025 Admitting Diagnosis PEG tube dislodgement DS: Discharge Diagnosis Discharge Diagnosis (1) Dislodged gastrostomy tube: Code(s): T85.528A - Displacement of other gastrointestinal prosthetic devices, implants and grafts, initial encounter Status: Acute Assessment and Plan: - G-tube dislodged for an unknown amount of time, Site currently scabbed over - GI consulted and placed PEG tube on 01/23 - Q 6 Accu-Cheks with hypoglycemia protocol - Will start feeding in 6 hours - Will DC D5 half saline at 100 mL/hour - home medications held, resume when tube replaced -Restart regular diet, Jevity 1.5 at 60 mL/hr from 8:00 p.m. to 4:00 a.m. with 100 mL flush at 8:00 p.m. and 4:00 a.m. DS: Summary Hospital Course Hospital Course: 44 y/o M presents here with dislodged g-tube with PMH of cognitive developmental delay, autism, chronic indwelling Cardona, and chronic G-tube. The patient presents here from [facility] via EMS for evaluation of a dislodged g-tube. custodial was unsure when the G-tube was dislodged. The patient is nonverbal at baseline, therefore unable to contribute to HPI. Last presented with a 12 Mauritanian tube on 01/08/2025 for reported G-tube malfunction i.e. leaking. A stopcock was replaced and the patient was discharged back to his facility. However today, the site appears scabbed over/closed. ED provider unable to replace G-tube. Initial VS at presentation: 98.5? F, HR 102, RR 16, 119/78, and 100% on RA. ED workup showed: WBC 11.2, no anemia, creatinine 0.69 and the normal GFR, glucose 92. As per the previous nutrition recommendation I would recommend regular diet, Jevity 1.5 at 60 mL/hr from 8:00 p.m. to 4:00 a.m. with 100 mL flush at 8:00 p.m. and 4:00 a.m. patient underwent endoscopy yesterday 0 3/0 2 and was placed percutaneous gastrostomy tube. Patient was not started on tube feeding yesterday. Status at Discharge Cognitive/behavioral status at discharge: Stable Time Spent with Patient Time attestation: Total time spent providing and/or coordinating discharge services: 45 minutes Exam Narrative: GENERAL APPEARANCE: WELL-DEVELOPED, WELL-NOURISHED, CONTRACTED ALL OVER SKIN: NORMAL COLOR HEAD: NORMOCEPHALIC, NONTRAUMATIC CHEST AND RESPIRATORY: AIRWAY PATENT, NO RESPIRATORY DISTRESS, NO ACCESSORY MUSCLE USE HEART: REGULAR RATE/RHYTHM ABDOMEN: FEEDING TUBE STOMA IS COMPLETELY CLOSED AND HAVE SCAB ON IT, GUARDING OF THE ABDOMINAL WALL DURING EXAM BECAUSE OF TENDERNESS AT THE STOMA, COLOSTOMY BAG IN PLACE NEUROLOGIC: PATIENT IS NONVERBAL Const: General: comfortable and no acute distress Other: , male, nontoxic appearance. HENMT: Face/Nose/Sinus: Normal nares present Mouth: Yes moist mucous membranes Eyes: General: appearance normal, both eyes and all related structures Sclera: sclerae normal Pupils: Equal, round and reactive pupils present Other: difficult eye exam, noncompliant Neck: Neck: supple Resp: Effort & Inspection: normal respiratory effort Auscultation: clear to auscultation bilaterally Cardio: Rate: regular rate Rhythm: regular rhythm Other: no murmur, no rub, no ectopy GI: Auscultation: normal bowel sounds Other: abdomen soft, nondistended, nontender. Ostomy present, CDI. stoma pink and moist. g-tube site with dried blood and appears closed, difficult to assess as patient did not want to be touched. Skin: General skin exam: normal color and no rashes or lesions noted Wounds: no wounds Neuro: Cranial nerves: Yes Equal, round and reactive pupils present Other: nonverbal, moves all extremities. will nod briefly to simple questions. Extrem: General: normal to inspection Psych: Other: anxious/agitated with touch. flat affect. DS: Data Data Completed and Pending Labs on day of discharge: Labs from last 24 hours 01/24/25 01/23/25 01/23/25 06:26 23:58 16:54 POC Capillary Glucose 122 H 126 H 126 H 01/23/25 12:01 POC Capillary Glucose 129 H Discharge Plan Discharge Attending physician on discharge: Lul Thomason Consulting providers: Suleman Mei Discharging Clinician: Lul Thomason Anticipated Discharge Date/Time: 01/24/25 09:07 Patient Disposition: [facility] Activity: other - see discharge instructions Diet: other - see discharge instructions Patient Instructions: Antibiotic Form Patient Language: Uzbek Stand Alone Forms: General Discharge Information Discharge Medications: No Action famotidine 20 mg Tablet 20 mg feeding tube Q12HR 30 Days Qty: 60 0RF sennosides-docusate sodium [Senna Plus] 8.6-50 mg Tablet 1 tablet PO Q12H polyethylene glycol 3350 [Miralax] 17 gram/dose Powder 17 g feeding tube DAILY promethazine 12.5 mg tablet 12.5 mg feeding tube DAILY Date of admission: 01/21/25 18:43 Primary Care Provider: AnamariaThomas Admitting Provider: Almas Daly Attending physician on admission: Almas Daly Condition: Stable
--- NOTE | 2025-01-24 09:12 | PM.IMPN ---
Progress Note: A&P Assessment and Plan (1) Dislodged gastrostomy tube: Code(s): T85.528A - Displacement of other gastrointestinal prosthetic devices, implants and grafts, initial encounter Status: Acute Assessment and Plan: -01/24: Yesterday, I consulted a waitangi tribunal member and was not notified that the patient had not started on tube feed. Today, the nurse reports that the patient had episodes of projectile vomiting early in the morning, and there had been some leakage from the PEG tube stoma site. The nurse has notified and recommends Zofran 4mg q 4hrs. Today started tube feeding and patient is able to tolerate the feeding. Still not at goal. Possible dc tomorrow. - G-tube dislodged for an unknown amount of time, Site currently scabbed over - GI consulted and placed PEG tube on 01/23 - Q 6 Accu-Cheks with hypoglycemia protocol - Will start feeding in 6 hours - Will DC D5 half saline at 100 mL/hour - home medications held, resume when tube replaced -Restart regular diet, Jevity 1.5 at 60 mL/hr from 8:00 p.m. to 4:00 a.m. with 100 mL flush at 8:00 p.m. and 4:00 a.m. Subjective Date/time seen: 01/24/25 09:12 Interval history: Yesterday, I consulted a waitangi tribunal member and was not notified that the patient had not started on tube feed. Today, the nurse reports that the patient had episodes of projectile vomiting early in the morning, and there had been some leakage from the PEG tube stoma site. The nurse has notified and recommends Zofran 4mg q 4hrs. Started feeding and able to tolerate feeding. Will dc tomorrow.Still not at goal. Possible dc tomorrow. Review of Systems Review of Systems: ROS unobtainable: Yes unobtainable due to mental status (Nonverbal) Exam Narrative: GENERAL APPEARANCE: WELL-DEVELOPED, WELL-NOURISHED, CONTRACTED ALL OVER SKIN: NORMAL COLOR HEAD: NORMOCEPHALIC, NONTRAUMATIC CHEST AND RESPIRATORY: AIRWAY PATENT, NO RESPIRATORY DISTRESS, NO ACCESSORY MUSCLE USE HEART: REGULAR RATE/RHYTHM ABDOMEN: FEEDING TUBE STOMA IS COMPLETELY CLOSED AND HAVE SCAB ON IT, GUARDING OF THE ABDOMINAL WALL DURING EXAM BECAUSE OF TENDERNESS AT THE STOMA, COLOSTOMY BAG IN PLACE NEUROLOGIC: PATIENT IS NONVERBAL Const: General: comfortable and no acute distress Other: , male, nontoxic appearance. HENMT: Face/Nose/Sinus: Normal nares present Mouth: Yes moist mucous membranes Eyes: General: appearance normal, both eyes and all related structures Sclera: sclerae normal Pupils: Equal, round and reactive pupils present Other: difficult eye exam, noncompliant Neck: Neck: supple Resp: Effort & Inspection: normal respiratory effort Auscultation: clear to auscultation bilaterally Cardio: Rate: regular rate Rhythm: regular rhythm Other: no murmur, no rub, no ectopy GI: Auscultation: normal bowel sounds Other: abdomen soft, nondistended, nontender. Ostomy present, CDI. stoma pink and moist. g-tube site with dried blood and appears closed, difficult to assess as patient did not want to be touched. Skin: General skin exam: normal color and no rashes or lesions noted Wounds: no wounds Neuro: Cranial nerves: Yes Equal, round and reactive pupils present Other: nonverbal, moves all extremities. will nod briefly to simple questions. Extrem: General: normal to inspection Psych: Other: anxious/agitated with touch. flat affect. Objective Data Vital Signs Vital Signs: Vital Signs - 24 hr 01/23/25 09:18 01/23/25 09:45 01/23/25 10:00 Temperature 97.4 F L 98.1 F Pulse Rate 98 100 96 Respiratory Rate 18 20 16 Blood Pressure 117/78 141/76 H 131/75 Pulse Oximetry 97 98 96 Oxygen Delivery Room Air 01/23/25 10:30 01/23/25 12:00 01/23/25 16:00 Temperature 97.7 F 98.3 F 97.4 F L Pulse Rate 99 113 H 114 H Respiratory Rate 16 16 20 Blood Pressure 111/72 135/76 131/61 Pulse Oximetry 96 95 95 Oxygen Delivery 01/23/25 20:00 01/24/25 00:00 01/24/25 05:45 Temperature 98.4 F 99.7 F H Pulse Rate 100 96 Respiratory Rate 16 16 Blood Pressure 120/72 127/62 Pulse Oximetry 96 94 Oxygen Delivery Room Air Intake/Output Intake/Output: Intake & Output 01/21/25 01/22/25 01/23/2525 23:59 23:59 23:59 23:59 Intake Total 1000 1999 2049 1000 Balance 1000 1999 2049 1000 Meds/Results Medications: Active Medications Generic Name Dose Route Start Last Admin Trade Name Freq PRN Reason Stop Dose Admin Dextrose 12.5 gm 01/21/25 20:59 Dextrose 50% 25 Gm/50 Ml Syringe IV PUSH PRN PRN Hypoglycemia Protocol Glucagon 1 mg 01/21/25 20:59 Glucagon For Inj 1 Mg Vial IM PRN PRN Hypoglycemia Protocol Glucose 15 gm 01/21/25 20:59 Glucose Oral Gel 15 Gm Of Glucse In 37.5 Gm Tube PO PRN PRN Hypoglycemia Protocol Dextrose/Sodium Chloride 1,000 mls @ 100 mls/hr 01/21/25 18:45 01/24/25 03:06 Dextrose 5% Sodium Chloride 0.45% IV CONT 100 mls/hr .Q10H FARZAD Administration Dextrose 1,000 mls @ 100 mls/hr 01/21/25 20:59 Dextrose 5% 1,000 Ml IVPB PRN PRN Hypoglycemia Protocol Ondansetron HCl 4 mg 01/24/25 06:28 01/24/25 06:34 Ondansetron Inj 4 Mg/2 Ml Vial IV PUSH 4 mg Q4H PRN Administration Nausea And Vomiting Labs Labs: Laboratory Results - last 24 hr 01/23/25 01/23/25 01/23/25 12:01 16:54 23:58 POC Capillary Glucose 129 H 126 H 126 H 01/24/25 06:26 POC Capillary Glucose 122 H Hospitalist MIPS Advance Care Plan I have confirmed that the patient's Advanced Care Plan is present, code status is documented, or surrogate decision maker is listed in patient medical record.: Yes Medication Reconciliation I have utilized all available resources to obtain, update and review the patients current medications (includes all prescriptions, OTC, herbals, cannabis, and nutritional supplements).: Yes
[2025-01-24 14:56] VITALS: BMI 15.5
--- NOTE | 2025-01-24 15:48 | PC.NURSE ---
10AM Began tube feed at 10ml/hour (not 20ml hour as originally ordered) as directed by spar machine operator helper since patient experienced vomiting in am. 1400 Increased tube feed to 20ml/hr no vomiting thus far
[2025-01-24 16:00] VITALS: BP 130/62; PULSE 88; RESP 17; TEMP 36.6; O2SAT 96
--- NOTE | 2025-01-24 16:19 | WPDGIPROGNO ---
Progress Note: A&P Assessment and Plan (1) Status post insertion of percutaneous endoscopic gastrostomy (PEG) tube: Code(s): Z93.1 - Gastrostomy status Status: Acute Assessment and Plan: we had to place a new one endoscopically advance tube feeding rate as tolerated (2) N&V (nausea and vomiting): Code(s): R11.2 - Nausea with vomiting, unspecified Status: Acute Assessment and Plan: on antiemetics, monitor (3) Autism: Code(s): F84.0 - Autistic disorder Status: Chronic Subjective Date/time seen: 01/24/25 16:19 Interval history: g-tube placed yesterday early today had emesis, now is comfortable and tube feeding running at 20ml/h Review of Systems Review of Systems: All systems reviewed & are unremarkable except as noted in HPI and below Exam Const: General: comfortable and no acute distress Other: , male, nontoxic appearance. HENMT: Face/Nose/Sinus: Normal nares present Eyes: General: appearance normal, both eyes and all related structures Neck: Neck: supple Resp: Effort & Inspection: normal respiratory effort Auscultation: clear to auscultation bilaterally Cardio: Rate: regular rate Rhythm: regular rhythm GI: GI Palp: Yes Soft to palpation and No Guarding due to palpation present (GI) Auscultation: normal bowel sounds Other: Ostomy present, CDI. stoma pink and moist. g-tube in place Skin: General skin exam: normal color Neuro: Other: nonverbal, moves all extremities. will nod briefly to simple questions. Extrem: General: normal to inspection Psych: Other: flat affect. Objective Data Vital Signs Vital Signs: Vital Signs - 24 hr 01/23/25 20:00 01/24/25 00:00 01/24/25 05:45 Temperature 98.4 F 99.7 F H Pulse Rate 100 96 Respiratory Rate 16 16 Blood Pressure 120/72 127/62 Pulse Oximetry 96 94 Oxygen Delivery Room Air 01/24/25 08:00 01/24/25 08:00 Temperature 98.2 F Pulse Rate 88 Respiratory Rate 16 Blood Pressure 138/74 Pulse Oximetry 96 Oxygen Delivery Room Air Intake/Output Intake/Output: Intake & Output 01/21/25 01/22/25 01/23/25 01/24/25 23:59 23:59 23:59 23:59 Intake Total 1000 1999 2049 1000 Balance 1000 1999 2049 1000 Meds/Results Medications: Active Medications Generic Name Dose Route Start Last Admin Trade Name Shaneq PRN Reason Stop Dose Admin Dextrose 12.5 gm 01/21/25 20:59 Dextrose 50% 25 Gm/50 Ml Syringe IV PUSH PRN PRN Hypoglycemia Protocol Glucagon 1 mg 01/21/25 20:59 Glucagon For Inj 1 Mg Vial IM PRN PRN Hypoglycemia Protocol Glucose 15 gm 01/21/25 20:59 Glucose Oral Gel 15 Gm Of Glucse In 37.5 Gm Tube PO PRN PRN Hypoglycemia Protocol Dextrose 1,000 mls @ 100 mls/hr 01/21/25 20:59 Dextrose 5% 1,000 Ml IVPB PRN PRN Hypoglycemia Protocol Ondansetron HCl 4 mg 01/24/25 06:28 01/24/25 06:34 Ondansetron Inj 4 Mg/2 Ml Vial IV PUSH 4 mg Q4H PRN Administration Nausea And Vomiting Labs Labs: Laboratory Results - last 24 hr 01/23/25 01/23/25 01/24/25 16:54 23:58 06:26 POC Capillary Glucose 126 H 126 H 122 H
[2025-01-24 17:38] LABS: Glucose Point of Care 106 mg/dl (65-105)
--- NOTE | 2025-01-24 18:29 | PC.NURSE ---
Increased tube feed to 30/hr. Tolerating well
[2025-01-24 20:00] VITALS: PULSE 103; RESP 18; O2SAT 92
[2025-01-24 20:07] VITALS: BP 134/90; PULSE 103; RESP 18; TEMP 37.2; O2SAT 92
[2025-01-25 02:03] LABS: Glucose Point of Care 142 mg/dl (65-105)
[2025-01-25 04:21] VITALS: BP 134/88; PULSE 86; RESP 18; TEMP 37.1; O2SAT 93
[2025-01-25 06:15] LABS: Hemoglobin 15.4 g/dL (14.0-18.0); Mean Corpuscular HGB Conc 32.1 g/dl (32-36); Mean Corpuscular Hemoglobin 27.5 pg (26-34); Mean Corpuscular Volume 85.9 fl (80-100); Mean Platelet Volume 8.8 fl (7.4-10.4); Platelet Count Result 247 k/mm3 (150-375); Red Blood Count 5.59 M/mm3 (4.6-6.20); Red Cell Distribution Width 14.7 % (11.5-14.5); White Blood Count 12.1 K/mm3 (4.5-10.0)
[2025-01-25 06:28] LABS: Alanine Aminotransferase 19 U/L (6-50); Albumin Level 4.3 g/dL (3.5-5.1); Alkaline Phosphatase 89 U/L (38-126); Anion Gap 12 mmol/L (4-12); Aspartate Amino Transferase 24 U/L (17-59); Bilirubin,Total 0.8 mg/dL (0.2-1.3); Blood Urea Nitrogen 6 mg/dL (9-20); Calcium 9.2 mg/dL (8.4-10.2); Carbon Dioxide 26 mmol/L (22-30); Chloride 101 mmol/L (98-107); Estimated CRCL calculation 83 ml/min; Estimated Glomerular Filt Rate > 60; Glucose 113 mg/dL (65-110); Potassium 4.6 mmol/L (3.4-5.0); Sodium 139 mmol/L (137-145)
[2025-01-25 08:00] VITALS: BP 132/64; PULSE 88; RESP 18; TEMP 36.9; O2SAT 94
--- NOTE | 2025-01-25 11:16 | P.DS_ITS ---
DS: Admitting Diagnosis Discharge Date 01/25/25 Admitting Diagnosis G-Tube Dislodged DS: Discharge Diagnosis Discharge Diagnosis (1) Gastrojejunostomy tube dislodgement: Code(s): T85.528A - Displacement of other gastrointestinal prosthetic devices, implants and grafts, initial encounter Status: Acute DS: Summary Hospital Course Hospital Course: 44 y/o M presents here with dislodged g-tube with PMH of cognitive developmental delay, autism, chronic indwelling Cardona, and chronic G-tube. The patient presents here from [facility] via EMS for evaluation of a dislodged g-tube. half-way was unsure when the G-tube was dislodged. The patient is nonverbal at baseline, therefore unable to contribute to HPI. Last presented with a 12 Khmer tube on 01/08/2025 for reported G-tube malfunction i.e. leaking. A stopcock was replaced and the patient was discharged back to his facility. However today, the site appears scabbed over/closed. ED provider unable to replace G-tube. Initial VS at presentation: 98.5? F, HR 102, RR 16, 119/78, and 100% on RA. ED workup showed: WBC 11.2, no anemia, creatinine 0.69 and the normal GFR, glucose 92. PEG tube replaced and tube feeding now at goal. Patient discharged to half-way. F/u with PCP in 3-5 days, and GI as instructed. Time Spent with Patient Time attestation: Total time spent providing and/or coordinating discharge services: DS: Data Data Completed and Pending Labs on day of discharge: Labs from last 24 hours 01/25/25 01/25/25 01/24/25 05:48 00:05 17:20 WBC 12.1 H RBC 5.59 Hgb 15.4 Hct 48.0 MCV 85.9 MCH 27.5 MCHC 32.1 RDW 14.7 H Plt Count 247 MPV 8.8 Sodium 139 Potassium 4.6 Chloride 101 Carbon Dioxide 26 Anion Gap 12 BUN 6 L D Creatinine 0.61 L Estim Creat Clear Calc 83 Estimated GFR > 60 Glucose 113 H POC Capillary Glucose 142 H 106 H Calcium 9.2 Total Bilirubin 0.8 AST 24 ALT 19 Alkaline Phosphatase 89 Total Protein 8.0 Albumin 4.3 Discharge Plan Discharge Attending physician on discharge: Lul Thomason Consulting providers: Suleman Mei Discharging Clinician: Lul Thomason Anticipated Discharge Date/Time: 01/24/25 09:07 Patient Disposition: NH Retirement/Asst Living Activity: other - see discharge instructions Diet: other - see discharge instructions Patient Instructions: Antibiotic Form Patient Language: Slovenian Stand Alone Forms: General Discharge Information Follow-up/Referrals: Kal,MD Thomas [Primary Care Provider] - (F/u with PCP in 3-5 days ) Suleman Mei MD [Physician] - (F/u with GI as instructed ) Discharge Medications: Continued famotidine 20 mg Tablet 20 mg feeding tube Q12HR 30 Days Qty: 60 0RF sennosides-docusate sodium [Senna Plus] 8.6-50 mg Tablet 1 tablet PO Q12H polyethylene glycol 3350 [Miralax] 17 gram/dose Powder 17 g feeding tube DAILY promethazine 12.5 mg tablet 12.5 mg feeding tube DAILY Date of admission: 01/21/25 18:43 Primary Care Provider: KalThomas Admitting Provider: Almas Daly Attending physician on admission: Almas Daly Condition: Stable
[2025-01-25 11:33] LABS: Glucose Point of Care 125 mg/dl (65-105)
[2025-01-25 11:53] LABS: Glucose Point of Care 114 mg/dl (65-105)
--- NOTE | 2025-01-25 12:05 | WPDGIPROGNO ---
Progress Note: A&P Assessment and Plan (1) Status post insertion of percutaneous endoscopic gastrostomy (PEG) tube: Code(s): Z93.1 - Gastrostomy status Status: Acute Assessment and Plan: no more emesis tolerating tube feeding no objections to discharge please keep abdominal binder to prevent from pulling it out again (2) N&V (nausea and vomiting): Code(s): R11.2 - Nausea with vomiting, unspecified Status: Acute Assessment and Plan: resolved (3) Autism: Code(s): F84.0 - Autistic disorder Status: Chronic Subjective Date/time seen: 01/25/25 12:05 Interval history: tolerating tube feeding, no new issues Review of Systems Review of Systems: All systems reviewed & are unremarkable except as noted in HPI and below Exam Const: General: comfortable and no acute distress Other: , male, nontoxic appearance. HENMT: Face/Nose/Sinus: Normal nares present Eyes: General: appearance normal, both eyes and all related structures Neck: Neck: supple Resp: Effort & Inspection: normal respiratory effort Auscultation: clear to auscultation bilaterally Cardio: Rate: regular rate Rhythm: regular rhythm GI: GI Palp: Yes Soft to palpation and No Guarding due to palpation present (GI) Auscultation: normal bowel sounds Other: Ostomy present, CDI. stoma pink and moist. g-tube in place Skin: General skin exam: normal color Neuro: Other: nonverbal, moves all extremities. will nod briefly to simple questions. Extrem: General: normal to inspection Psych: Other: flat affect. Objective Data Vital Signs Vital Signs: Vital Signs - 24 hr 01/24/25 16:00 01/24/25 20:00 01/24/25 20:07 Temperature 98 F 99 F Pulse Rate 88 103 H 103 H Respiratory Rate 17 18 18 Blood Pressure 130/62 134/90 Pulse Oximetry 96 92 92 Oxygen Delivery Room Air 01/25/25 04:21 01/25/25 08:00 Temperature 98.7 F 98.5 F Pulse Rate 86 88 Respiratory Rate 18 18 Blood Pressure 134/88 132/64 Pulse Oximetry 93 94 Oxygen Delivery Intake/Output Intake/Output: Intake & Output 01/22/25 01/23/25 01/24/25 01/25/25 23:59 23:59 23:59 23:59 Intake Total 1999 2049 1000 634 Output Total 25 Balance 1999 2049 300 348 Meds/Results Medications: Active Medications Generic Name Dose Route Start Last Admin Trade Name Ondina PRN Reason Stop Dose Admin Dextrose 12.5 gm 01/21/25 20:59 Dextrose 50% 25 Gm/50 Ml Syringe IV PUSH PRN PRN Hypoglycemia Protocol Glucagon 1 mg 01/21/25 20:59 Glucagon For Inj 1 Mg Vial IM PRN PRN Hypoglycemia Protocol Glucose 15 gm 01/21/25 20:59 Glucose Oral Gel 15 Gm Of Glucse In 37.5 Gm Tube PO PRN PRN Hypoglycemia Protocol Dextrose 1,000 mls @ 100 mls/hr 01/21/25 20:59 Dextrose 5% 1,000 Ml IVPB PRN PRN Hypoglycemia Protocol Ondansetron HCl 4 mg 01/24/25 06:28 01/24/25 06:34 Ondansetron Inj 4 Mg/2 Ml Vial IV PUSH 4 mg Q4H PRN Administration Nausea And Vomiting Labs Labs: Laboratory Results - last 24 hr 01/24/25 01/25/25 01/25/25 17:20 00:05 05:41 WBC RBC Hgb Hct MCV MCH MCHC RDW Plt Count MPV Sodium Potassium Chloride Carbon Dioxide Anion Gap BUN Creatinine Estim Creat Clear Calc Estimated GFR Glucose POC Capillary Glucose 106 H 142 H 125 H Calcium Total Bilirubin AST ALT Alkaline Phosphatase Total Protein Albumin 01/25/25 01/25/25 05:48 11:37 WBC 12.1 H RBC 5.59 Hgb 15.4 Hct 48.0 MCV 85.9 MCH 27.5 MCHC 32.1 RDW 14.7 H Plt Count 247 MPV 8.8 Sodium 139 Potassium 4.6 Chloride 101 Carbon Dioxide 26 Anion Gap 12 BUN 6 L D Creatinine 0.61 L Estim Creat Clear Calc 83 Estimated GFR > 60 Glucose 113 H POC Capillary Glucose 114 H Calcium 9.2 Total Bilirubin 0.8 AST 24 ALT 19 Alkaline Phosphatase 89 Total Protein 8.0 Albumin 4.3
--- NOTE | 2025-01-25 12:53 | PCDIET ---
Pt tolerating tube feeds at goal rate. Discharge today.
[2025-01-25 13:45] LABS: SARS-CoV-2 RNA PCR Negative (Negative)
== END 2025-01-25 15:49 ==
LOC: ANHED 18:28 → ANH3MEDSUR 19:34 → ANH2MED 19:46
PROVIDERS: General Practice; Internal Medicine Gastroenterology; Admitting Provider Internal Medicine; Emergency Provider Emergency Medicine; PCP Internal Medicine; Visit Provider Internal Medicine
PROC: 0DH63UZ Insertion of Feeding Device into Stomach, Percutaneous Approach (ICD-10-PCS; CPT 43246; principal; 2025-01-23 08:00)
DX: T85.528A Displacement of other gastrointestinal prosthetic devices, implants and grafts, initial encounter (principal); Y82.8 Other medical devices associated with adverse incidents; R13.10 Dysphagia, unspecified; R11.12 Projectile vomiting; F84.0 Autistic disorder; F81.9 Developmental disorder of scholastic skills, unspecified; K59.00 Constipation, unspecified; E16.2 Hypoglycemia, unspecified; Z11.52 Encounter for screening for COVID-19
CPT/HCPCS: 36415; 43246; 80053; 82948; 85025; 85027; 87635; 96360; 96361; 96374; 99285; G0378; G0379; J0690; J2003; J2405; J2704; J7030; J7120

== ENCOUNTER 2025-03-19 17:18 | Inpatient (IN) | payer OTHER, SELFPAY ==
--- NOTE | ~2025-03-19 | CT_ITS ---
EXAMINATION: CT chest abdomen pelvis w con DATE: 03/19/2025 21:43 INDICATION: Abdominal pain, nausea and vomiting TECHNIQUE: Computed tomography (CT) of the chest, abdomen, and pelvis was performed with 100 mL Omnip aque-350 intravenous contrast. Automated exposure control and iterative reconstruction technique were employed. The dose-length product was 420.39 mGy-cm. COMPARISON: None FINDINGS: CHEST CT: Emphysema with single large bulla occupying the anterior half of the left hemithorax and additional l arge bulla occupying the anterior third of the right hemithorax. There is dependent atelectasis in joe th lungs with lower lobe predominance. No pneumonia, pulmonary edema, pleural effusion or pneumothora x. Heart size is normal. No pericardial effusion. Thoracic aorta is normal in caliber with no dissect ion. Small sliding-type hiatal hernia. No pathologically enlarged abdominal or pelvic lymphadenopathy . Bones are unremarkable. ABDOMEN/PELVIS CT: Percutaneous gastrojejunostomy tube which extends through the stomach into the small bowel with bulb and distal tip positioned within the small bowel in the right lower quadrant. The appears telescoped along the tube appears telescoped upon itself. No dilated bowel to suggest obstruction. Status post r ight distal colectomy with left lower quadrant and colostomy. Lowe's pouch in the pelvis containin g a 4.9 cm ball of stool.. Unchanged 1 cm cyst in the inferior right hepatic lobe. Gallbladder, splee n, pancreas, bilateral adrenal glands and right kidney are normal. There are couple left renal cysts measuring up to 2.0 cm. Prostatomegaly. Diffuse bladder wall thickening. No free intraperitoneal gas or fluid. No pathologically enlarged abdominal or pelvic lymphadenopathy. Hypoplastic bilateral rible ts at T12 and sacralized L5 segment with 4 intervening nonrib-bearing lumbar segments. IMPRESSION: 1. Stable appearance of severe bullous emphysema with chronic atelectasis/scarring at the bilateral l ower lungs. 2. Percutaneous gastrojejunostomy tube with bulb in distal tip within the small bowel the right lower quadrant with telescoping of the intervening jejunum. 3. Persistent prominent bladder wall thickening which could be due to chronic outlet obstruction from the enlarged prostate or cystitis. 4. Small sliding-type hiatal hernia. Reviewed, dictated and finalized at location A. IMPRESSION: 1. Stable appearance of severe bullous emphysema with chronic atelectasis/scarr ing at the bilateral lower lungs. 2. Percutaneous gastrojejunostomy tube with bulb in distal tip within the small bowel the right lower quadrant with telescoping of the intervening jejunum. 3. Persistent prominent bladder wall thickening which could be due to chronic o utlet obstruction from the enlarged prostate or cystitis. 4. Small sliding-type hiatal hernia.
--- NOTE | ~2025-03-19 | XR_ITS ---
XR chest 1V portable Ordering provider: Naeem Beach MD History: 44 years Male with . N/V, non-verbal . Comparison: July 03, 2024 FINDINGS: MEDIASTINUM: The cardiac silhouette is not enlarged. LUNGS: No effusions or pneumothorax. Opacification in the right lung base medially. Hyperinflated lef t lung. OTHER: No free air under the diaphragm. IMPRESSION: Right basilar atelectasis versus pneumonia seen medially. Hyperinflated left lung. Reviewed, dictated and finalized at location A.
[2025-03-19 17:49] VITALS: BP 105/68; PULSE 80; RESP 20; TEMP 36.4; O2SAT 97
--- NOTE | 2025-03-19 19:18 | ED_ITS ---
HPI - General Adult General Chief complaint: Nausea/Vomiting/Diarrhea Stated complaint: vomitting Time Seen by Provider: 03/19/25 18:56 History of Present Illness HPI narrative: This is a 44-year-old nonverbal patient with autism, G-tube and colostomy bag presenting for nausea and vomiting. Patient is nonverbal and can not provide no meaningful information to the interview. He is laying on the bed curled in the position. G-tube and colostomy bag in place. History obtained via EMS from [facility] Related Data Home Medications ?Medication ?Instructions ?Recorded ?Confirmed ?Last Taken ?Type polyethylene glycol 3350 17 17 g feeding tube DAILY 01/09/24 01/21/25 Unknown History gram/dose oral powder (Miralax) sennosides 8.6 mg-docusate sodium 1 tablet PO Q12H 01/09/24 01/21/25 Unknown History 50 mg tablet (Senna Plus) promethazine 12.5 mg tablet 12.5 mg feeding tube DAILY 09/28/24 01/21/25 Unknown History Allergies Allergy/AdvReac Type Severity Reaction Status Date / Time No Known Allergies Allergy Verified 03/19/25 17:19 [facility] Past Medical History Medical History Chronic indwelling Lopez catheter Cognitive developmental delay Autism Surgical History Surgical History History of gastrostomy tube placement History of exploratory laparotomy (09/2022) Exploratory laparotomy with sigmoid colon resection and colostomy for ischemic bowel. Family History Family History Other Family history unknown Social History Social History Social History: Patient lives in [facility]. Surrogate medical decision maker: Man Swanson, father or Samia Hale, sister. Code status: Full code. Smoking status: Unknown if ever smoked Second hand tobacco smoke exposure: No Alcohol intake: never Substance use: never Substance use type: does not use Additional living arrangements comments: Resident at [facility]. Spiritual care concerns: No Exam 2 Narrative: APPEARANCE: No apparent distress. Head: atraumatic. EYES: EOMI, NOSE: Atraumatic NECK: Trachea midline RESPIRATORY: No increased rate of breathing CTAB CARDIOVASCULAR: RRR, peripheral edema ABDOMINAL: Abdomen is firm, unclear if tender is the patient will not allow us to exam without restraining his arms, G-tube and colostomy in place. Colostomy is empty. 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 no lopez in place. MUSCULOSKELETAl: No obvious deformities NEURO: Alert. Moving 4/4 extremities SKIN:: Warm, dry. Normal color PSYCHIATRIC: Nonverbal Course Vital Signs Vital signs: Vital Signs Temperature 97.6 F 03/19/25 17:49 Pulse Rate 80 03/19/25 17:49 Respiratory Rate 20 03/19/25 17:49 Blood Pressure 105/68 03/19/25 17:49 Pulse Oximetry 97 03/19/25 17:49 Temperature 97.6 F 03/19/25 17:49 Pulse Rate 110 H 03/19/25 23:00 Respiratory Rate 15 03/19/25 23:00 Blood Pressure 129/103 H 03/19/25 23:00 Pulse Oximetry 94 03/19/25 23:00 Medical Decision Making [facility] Narrative Medical decision making narrative: -Course: 44-year-old autistic nonverbal patient with developmental delay presenting for vomiting. johnson scan obtained. Workup was significantly delayed as the patient is he is nonverbal and would not allow anyone to start a IV or place a catheter. He had received Haldol Ativan for sedation to facilitate the workup. Eventually were able to get IV access. We were unable to get urine with a straight cath we could not advance the catheter into the bladder. A [place] condom cath was applied to the patient eventually we were able to get a urine sample. Workup was significant for an elevated white blood cell count 17. Initial lactic 3.6. This after fluid resuscitation. Urine with 10-15 white blood cells, greater than 100 red blood cells positive nitrites and leuk esterase. CT chest abdomen pelvis showed a thickened gallbladder wall but no other acute findings. Patient is septic with the source being the urine. Blood cultures are still pending. He has been started on cefepime and vanco which covers the Proteus he has grown out on previous infections. Patient will be admitted the hospital for further management. -DDX includes but is not limited to: Obstruction, sepsis UTI dehydration pneumonia ileus Independent EKG interpretation: Rhythm [sinus], Rate [113], [place] -[normal], ID -[normal], QRS [narrow], QTC [normal], T waves -[negative for concerning inversions], ST Segments - [Negative for concerning elevations] Final interpretations: Sinus tach Vital Signs Vital Signs: Vital Signs Temperature 97.6 F 03/19/25 17:49 Pulse Rate 80 03/19/25 17:49 Respiratory Rate 20 03/19/25 17:49 Blood Pressure 105/68 03/19/25 17:49 Pulse Oximetry 97 03/19/25 17:49 Temperature 97.6 F 03/19/25 17:49 Pulse Rate 110 H 03/19/25 23:00 Respiratory Rate 15 03/19/25 23:00 Blood Pressure 129/103 H 03/19/25 23:00 Pulse Oximetry 94 03/19/25 23:00 Lab Data 03/19/25 20:48 03/19/25 20:48 Labs: Lab Results 03/19/25 03/19/25 Range/Units 20:48 23:01 WBC 17.2 H (4.5-10.0) K/mm3 RBC 5.76 (4.6-6.20) M/mm3 Hgb 15.6 (14.0-18.0) g/dL Hct 50.0 (42.0-52.0) % MCV 86.8 (80-100) fl MCH 27.1 (26-34) pg MCHC 31.2 L (32-36) g/dl RDW 14.6 H (11.5-14.5) % Plt Count 274 (150-375) k/mm3 MPV 9.0 (7.4-10.4) fl Immature Gran % (Auto) 0.3 (0-0.5) % Neut % (Auto) 85.8 H (45.5-73.1) % Lymph % (Auto) 8.5 L (18.3-44.2) % [place] % (Auto) 5.2 (2.6-8.5) % Eos % (Auto) 0.0 (0-4.4) % Baso % (Auto) 0.2 (0.2-1.2) % Lymph # (Auto) 1.46 (0.9-3.2) K/mm3 [place] # (Auto) 0.9 H (0.1-0.6) K/mm3 Eos # (Auto) 0.0 (0-0.3) K/mm3 Baso # (Auto) 0.0 (0.0-0.1) K/mm3 Abs Immat Gran (auto) 0.06 H (0.00-0.031) K/mm3 Absolute Neuts (auto) 14.7 H (1.3-6.7) K/mm3 Absolute Nucleated RBC 0.000 (0.0-0.012) K/mm3 Nucleated RBC % 0.0 (0.0-0.2) % PT 14.5 (11.1-14.7) Seconds INR 1.1 APTT 32.5 (22.3-36.8) Seconds Sodium 139 (137-145) mmol/L Potassium 4.3 (3.4-5.0) mmol/L Chloride 99 (98-107) mmol/L Carbon Dioxide 28 (22-30) mmol/L Anion Gap 12 (4-12) mmol/L BUN 12 D (9-20) mg/dL Creatinine 0.76 (0.7-1.3) mg/dL Estim Creat Clear Calc Not Reportable Estimated GFR > 60 (59 - ) Glucose 135 H (65-110) mg/dL Lactic Acid 2.8 H 3.6 H (0.7-2.0) mmol/L Calcium 9.5 (8.4-10.2) mg/dL Magnesium 2.0 (1.6-2.3) mg/dL Total Bilirubin 0.7 (0.2-1.3) mg/dL AST 33 (17-59) U/L ALT 34 (6-50) U/L Alkaline Phosphatase 102 (38-126) U/L Total Protein 10.0 H (6.3-8.2) g/dL Albumin 4.9 (3.5-5.1) g/dL Lipase 189 (23-300) U/L Urine Color Light red H (Yellow) Urine Appearance Cloudy H (Clear) Urine pH 6.5 (5.0-9.0) Ur Specific [place] > 1.045 H (1.001-1.035) Urine Protein 1+ H (Negative) mg/dL Urine Glucose (UA) Negative (Negative) mg/dL Urine Ketones Negative (Negative) mg/dL Ur Blood (Man) 3+ H (Negative) Urine Nitrate Positive H (Negative) Urine Bilirubin Negative (Negative) Urine Urobilinogen 0.2 (<2.0) mg/dL Add Ur Microanalysis Reviewed Leukocyte Esterase Rfl 1+ H (Negative) ELLIS/UL Urine RBC >100 H (0-2) /hpf Urine WBC 10-15 H (0-3) /hpf Ur Squamous Epith Cells None seen (Few) /hpf Urine Bacteria 2+ H /hpf Urine Casts 0-2 Influenza A (RT-PCR) Negative (Negative) Influenza B (RT-PCR) Negative (Negative) RSV (RT-PCR) Negative (Negative) SARS-CoV-2 RNA (RT-PCR) Negative (Negative) Discharge Plan Discharge Clinical Impression: Acute UTI Sepsis Qualifiers: Sepsis type: sepsis due to unspecified organism Sepsis acute organ dysfunction status: unspecified Qualified Code(s): A41.9 - Sepsis, unspecified organism Patient Disposition: Home Condition: Stable Instructions: Antibiotic Form Patient Language: [place] Prescriptions: No Action famotidine 20 mg Tablet 20 mg feeding tube Q12HR 30 Days Qty: 60 0RF sennosides-docusate sodium [Senna Plus] 8.6-50 mg Tablet 1 tablet PO Q12H polyethylene glycol 3350 [Miralax] 17 gram/dose Powder 17 g feeding tube DAILY promethazine 12.5 mg tablet 12.5 mg feeding tube DAILY Follow-up/Referrals: Kal,MD Thomas [Primary Care Provider] -
[2025-03-19] MEDS: LORazepam INJ (*CRX) 2 MG/ML VIAL IM (19:50)
[2025-03-19] MEDS: HALOPERIDOL LACTATE 5 MG/ML VIAL IM (19:50)
[2025-03-19] MEDS: SODIUM CHLORIDE 0.9% IV 1,000 ML 999 ML IV CONT ×2 (20:51→23:30)
[2025-03-19] MEDS: ONDANSETRON INJ 4 MG/2 ML VIAL IV PUSH (20:53)
[2025-03-19 20:56] LABS: Basophils Percent Auto 0.2 % (0.2-1.2); Hemoglobin 15.6 g/dL (14.0-18.0); Immature Granulocyte Absolute 0.06 K/mm3 (0.00-0.031); Immature Granulocyte Percent A 0.3 % (0-0.5); Lymphocytes Absolute Auto 1.46 K/mm3 (0.9-3.2); Lymphocytes Percent Auto 8.5 % (18.3-44.2); Mean Corpuscular HGB Conc 31.2 g/dl (32-36); Mean Corpuscular Hemoglobin 27.1 pg (26-34); Mean Corpuscular Volume 86.8 fl (80-100); Monocytes Absolute Auto 0.9 K/mm3 (0.1-0.6); Monocytes Percent Auto 5.2 % (2.6-8.5); Neutrophils Absolute Auto 14.7 K/mm3 (1.3-6.7); Neutrophils Percent Auto 85.8 % (45.5-73.1); Platelet Count Result 274 k/mm3 (150-375); Red Blood Count 5.76 M/mm3 (4.6-6.20); Red Cell Distribution Width 14.6 % (11.5-14.5); White Blood Count 17.2 K/mm3 (4.5-10.0)
[2025-03-19 21:07] LABS: Lactic Acid Reflex 2.8 mmol/L (0.7-2.0)
[2025-03-19 21:08] LABS: Alanine Aminotransferase 34 U/L (6-50); Albumin Level 4.9 g/dL (3.5-5.1); Alkaline Phosphatase 102 U/L (38-126); Anion Gap 12 mmol/L (4-12); Aspartate Amino Transferase 33 U/L (17-59); Bilirubin,Total 0.7 mg/dL (0.2-1.3); Blood Urea Nitrogen 12 mg/dL (9-20); Calcium 9.5 mg/dL (8.4-10.2); Carbon Dioxide 28 mmol/L (22-30); Chloride 99 mmol/L (98-107); Estimated Glomerular Filt Rate > 60; Glucose 135 mg/dL (65-110); Lipase 189 U/L (23-300); Potassium 4.3 mmol/L (3.4-5.0); Sodium 139 mmol/L (137-145)
[2025-03-19 21:11] LABS: INR 1.1; Prothrombin Time 14.5 Seconds (11.1-14.7)
[2025-03-19 21:12] LABS: Partial Thromboplastin Time 32.5 Seconds (22.3-36.8)
[2025-03-19 21:17] VITALS: BP 112/64; PULSE 114; RESP 15; O2SAT 94
[2025-03-19 21:33] LABS: Influenza A QL RT-PCR Negative (Negative); Influenza B QL RT-PCR Negative (Negative); RSV RNA, RT-PCR Negative (Negative); SARS-CoV-2 RNA PCR Negative (Negative)
--- NOTE | 2025-03-19 22:50 | PC.NURSE ---
3 attempts at straight cath for urine without success, EDP Dr. Beach made aware and at bedside to attempt. Patient had depend full of urine upon arrival but has not urinated since.
[2025-03-19 22:54] LABS: Reflex Lactic Acid Yes or No Add Lactic
[2025-03-19 23:00] VITALS: BP 129/103; PULSE 110; RESP 15; O2SAT 94
[2025-03-19 23:15] LABS: Lactic Acid 3.6 mmol/L (0.7-2.0)
[2025-03-19] MEDS: SODIUM CHLORIDE 0.9% IV 500 ML 999 ML IV CONT (23:30)
--- NOTE | 2025-03-19 23:47 | PC.NURSE ---
Phlebotomy at bedside for second set of cultures.
--- NOTE | 2025-03-20 00:47 | ECG_ITS ---
Test Date: 2025-03-20 00:47:37 Measurements Intervals [place] Rate: 113 P: 61 MD: 152 QRS: 65 QRSD: 77 T: 87 QT: 313 QTc: 430 Interpretive Statements SINUS TACHYCARDIA BASELINE ARTIFACT- AVR, AVL ,AVF, V1-V6 ABNORMAL ECG Compared to ECG 07/01/2024 23:21:04 HEART RATE HAS DECREASED Electronically Signed On 03-20-2025 07:54:22 CDT by Jose Cruz Nunez D.O.
[2025-03-20 01:16] LABS: Bacteria Urine 2+ /hpf; Need Manual Microscopic Reviewed; Non Pathogenic Casts 0-2; RBC Urine >100 /hpf (0-2); Squamous Epithelial Cell Urine None Seen /hpf (Few)
[2025-03-20 01:17] LABS: Add Urine Microscopic? YES; Appearance Urine Cloudy (Clear); Bilirubin Urine Negative (Negative); Blood Urine 3+ (Negative); Glucose Urine UA Negative (Negative); Ketones Urine Negative (Negative); Leukocyte Esterase Ur 1+ LEU/UL (Negative); Nitrate Urine Positive (Negative); Protein Urine 1+ mg/dL (Negative); Specific Grav Ur > 1.045 (1.001-1.035); Urobilinogen Urine 0.2 mg/dL (<2.0); pH Urine 6.5 (5.0-9.0)
[2025-03-20 01:18] LABS: Color Urine Light Red (Yellow)
[2025-03-20] MEDS: CEFEPIME 2 GM/NS 50 ML 2 GM/50 ML BAG IVPB ×3 (01:26→15:57)
--- NOTE | 2025-03-20 01:37 | PM.IMHP ---
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 [facility] reported at [facility] staff stated the patient started vomiting around lunch in was ?less active than normal?. The patient had not had any vomiting since presentation to the ER. He is unable to provide any history and was intolerant to care in the ER requiring Haldol and benzodiazepines. At the time of my evaluation he has curled in the position on his right side and appears to be resting comfortably but is acutely ill-appearing. He allowed heart and lung exam without much reaction but became quite agitated when we bladder scanned him a which makes me suspicious that he is having some suprapubic tenderness. Patient was febrile at the time of my evaluation and tachycardic. He is unable to provide any history and does H&P/HPI was obtained from review of past medical records, [facility] documentation and physician report. Review of Systems Review of Systems: Unobtainable due to patient's history of autism and nonverbal state [facility] Past Medical History Medical History (Updated 03/20/25 @ 19:38 by Marcellus Barber MD) Chronic indwelling Cardona catheter Cognitive developmental delay Autism Surgical History Surgical History (Updated 03/20/25 @ 01:57 by Nenita Burroughs DO) History of gastrostomy tube placement History of exploratory laparotomy (09/2022) Exploratory laparotomy with sigmoid colon resection and colostomy for ischemic bowel. Complicated by septic shock and respiratory failure requiring intubation Family History Family History Other Family history unknown Social History Social History (Updated 03/20/25 @ 01:58 by Nenita Burroughs DO) Social History: [facility] Surrogate medical decision maker: Man Swanson, father or Samia Hale, sister. Code status: Full code. Smoking status: Never smoker Second hand tobacco smoke exposure: No Alcohol intake: never Substance use: never Substance use type: does not use Additional living arrangements comments: Resident at [facility]. Spiritual care concerns: No Meds Home Medications and Allergies Home Medications ?Medication ?Instructions ?Recorded ?Confirmed ?Type famotidine 20 mg tablet 20 mg feeding tube Q12HR 30 days 11/08/22 03/20/25 Rx #60 tabs polyethylene glycol 3350 17 17 g feeding tube DAILY 01/09/24 03/20/25 History gram/dose oral powder (Miralax) sennosides 8.6 mg-docusate sodium 1 tablet PO Q12H 01/09/24 03/20/25 History 50 mg tablet (Senna Plus) promethazine 12.5 mg tablet 12.5 mg feeding tube DAILY PRN 09/28/24 03/20/25 History nausea and vomiting Allergies Allergy/AdvReac Type Severity Reaction Status Date / Time No Known Allergies Allergy Verified 03/19/25 17:19 Vital Signs Vital Signs - 24 hr 03/19/25 17:49 03/19/25 21:17 03/19/25 23:00 Temperature 97.6 F Pulse Rate 80 114 H 110 H Respiratory Rate 20 15 15 Blood Pressure 105/68 112/64 129/103 H Pulse Oximetry 97 94 94 Exam Narrative: Weight 50.9 kg Const: Other: Acutely ill-appearing, lying in bed curled up on his right side in the position, thin body habitus HENMT: Other: Head is normocephalic atraumatic, mucous membranes not evaluated as patient could would not open his mouth, patient fought staff when trying to examine his eyes as well Eyes: Other: Unable to perform due to lack of cooperation Neck: Other: No anterior cervical lymphadenopathy trachea midline Resp: Other: Clear to auscultation bilaterally, decreased breath sounds at the bases Cardio: Other: Sinus tachycardia, 2+ bilateral radial pedal pulses GI: Other: Colostomy in the left lower abdomen, G-tube present, no erythema surrounding G-tube site, tenderness with palpation of suprapubic region : Other: Pure wick catheter in place with cloudy turbid, pale yellow urine Back/Spine/Pelvis: Other: No tenderness to palpation, patient has thoracic kyphosis due to positioning Skin: Other: Hot to touch, diaphoretic Neuro: Other: Patient has increased tone of his upper and lower extremities in hold his extremities in flexion, he does localize to pain in pushes providers away Extrem: Other: No clubbing, cyanosis or edema, patient hold arms and legs in flexion Psych: Other: Uncooperative with exam, poor judgment and insight H&P: Results Labs Labs: Laboratory Tests 03/19/25 20:48 03/19/25 20:48 03/19/25 03/19/25 20:48 23:01 WBC 17.2 H RBC 5.76 Hgb 15.6 Hct 50.0 MCV 86.8 MCH 27.1 MCHC 31.2 L RDW 14.6 H Plt Count 274 MPV 9.0 Immature Gran % (Auto) 0.3 Neut % (Auto) 85.8 H Lymph % (Auto) 8.5 L Frio % (Auto) 5.2 Eos % (Auto) 0.0 Baso % (Auto) 0.2 Lymph # (Auto) 1.46 Frio # (Auto) 0.9 H Eos # (Auto) 0.0 Baso # (Auto) 0.0 Abs Immat Gran (auto) 0.06 H Absolute Neuts (auto) 14.7 H Absolute Nucleated RBC 0.000 Nucleated RBC % 0.0 PT 14.5 INR 1.1 APTT 32.5 Sodium 139 Potassium 4.3 Chloride 99 Carbon Dioxide 28 Anion Gap 12 BUN 12 D Creatinine 0.76 Estim Creat Clear Calc Not Reportable Estimated GFR > 60 Glucose 135 H Lactic Acid 2.8 H 3.6 H Calcium 9.5 Magnesium 2.0 Total Bilirubin 0.7 AST 33 ALT 34 Alkaline Phosphatase 102 Total Protein 10.0 H Albumin 4.9 Lipase 189 Urine Color Light red H Urine Appearance Cloudy H Urine pH 6.5 Ur Specific [place] > 1.045 H Urine Protein 1+ H Urine Glucose (UA) Negative Urine Ketones Negative Ur Blood (Man) 3+ H Urine Nitrate Positive H Urine Bilirubin Negative Urine Urobilinogen 0.2 Add Ur Microanalysis Reviewed Leukocyte Esterase Rfl 1+ H Urine RBC >100 H Urine WBC 10-15 H Ur Squamous Epith Cells None seen Urine Bacteria 2+ H Urine Casts 0-2 Influenza A (RT-PCR) Negative Influenza B (RT-PCR) Negative RSV (RT-PCR) Negative SARS-CoV-2 RNA (RT-PCR) Negative Impressions Chest X-Ray 03/19/25 19:38 IMPRESSION: Right basilar atelectasis versus pneumonia seen medially. Hyperinflated left lung. Assessment and Plan Assessment and plan (1) UTI (urinary tract infection): Qualifiers: Hematuria presence: with hematuria Urinary tract infection type: acute cystitis Qualified Code(s): N30.01 - Acute cystitis with hematuria Code(s): N39.0 - Urinary tract infection, site not specified Status: Acute (2) Sepsis: Qualifiers: Sepsis acute organ dysfunction status: without acute organ dysfunction Sepsis type: sepsis due to unspecified organism Qualified Code(s): A41.9 - Sepsis, unspecified organism Code(s): A41.9 - Sepsis, unspecified organism Status: Acute (3) Acute dehydration: Code(s): E86.0 - Dehydration Status: Acute (4) Lactic acidosis: Code(s): E87.20 - Acidosis, unspecified Status: Acute (5) N&V (nausea and vomiting): Qualifiers: Vomiting type: unspecified Qualified Code(s): R11.2 - Nausea with vomiting, unspecified Code(s): R11.2 - Nausea with vomiting, unspecified Status: Acute (6) Autism: Code(s): F84.0 - Autistic disorder Status: Chronic (7) Sinus tachycardia: Code(s): R00.0 - Tachycardia, unspecified Status: Acute Plan Patient presented with sepsis is most likely due to UTI given results of UA. Blood cultures have been obtained and are pending. Patient received greater than 30 mL/kilos fluid bolus. He has been started empiric antibiotic therapy with cefepime and vancomycin. However will discontinue vancomycin as cefepime to cover most common pathogens. Will adjust antibiotic coverage as appropriate depending on culture sensitivities. Will provide Tylenol as needed. Will continue maintenance IV fluids with normal saline at 100 mL an hour. The patient increased lactic acid despite appropriate treatment and adequate fluid administration. This is likely due to difficulty obtaining labs as the patient does not tolerate cares well given his history of nonverbal autism. Will repeat lactic acid level with a.m. labs. The patient has had good urine output. Bladder scan with pure wick catheter in place demonstrated about 230 mL and the patient actively urinated more with bladder scan. Patient did have suprapubic tenderness with bladder scan and was quite distressed with evaluation. Will resume home famotidine and home bowel regimen. Zofran has been ordered as needed for nausea. Quality VTE Prophylaxis VTE prophylaxis: pharmacologic ordered (Lovenox 40 mg subQ daily.) Hospitalist [facility] Advance Care Plan I have confirmed that the patient's Advanced Care Plan is present, code status is documented, or surrogate decision maker is listed in patient medical record.: Yes Medication Reconciliation I have utilized all available resources to obtain, update and review the patients current medications (includes all prescriptions, OTC, herbals, cannabis, and nutritional supplements).: Yes
[2025-03-20 02:00] VITALS: BP 155/88; PULSE 109; RESP 17; O2SAT 96
[2025-03-20] MEDS: VANCOMYCIN 1,250 MG/NS 250 ML 1,250 MG/250 ML BAG 166.67 MG IVPB (02:34)
--- NOTE | 2025-03-20 03:42 | ADMGEN ---
This patient, Ricky Swanson, was admitted to [facility] Surg Room 322-01. Patient/family oriented to hospital policies and general routines including ID bracelet, bed and alarms, visiting hours, pain management, procedures, bathroom and other care routines, personal items, smoking policy, room service/diet, and visiting hours. Information on how to activate the Rapid Response Team has been discussed. Patient/Family are encouraged to report perceived risks to care and to ask questions if they do not understand what they are told or what they should do.
[2025-03-20 04:12] LABS: MRSA (PCR) DETECTED (NOT DETECTE)
[2025-03-20] MEDS: SODIUM CHLORIDE 0.9% IV 1,000 ML 100 ML IV CONT ×3 (04:22→21:51)
[2025-03-20 05:38] VITALS: BP 117/67; PULSE 135; RESP 19; TEMP 37.6; O2SAT 92
[2025-03-20 06:12] LABS: Hematocrit 42.9 % (42.0-52.0); Hemoglobin 13.2 g/dL (14.0-18.0); Mean Corpuscular HGB Conc 30.8 g/dl (32-36); Mean Corpuscular Hemoglobin 27.5 pg (26-34); Mean Corpuscular Volume 89.4 fl (80-100); Mean Platelet Volume 9.6 fl (7.4-10.4); Platelet Count Result 204 k/mm3 (150-375); Red Cell Distribution Width 14.6 % (11.5-14.5); White Blood Count 23.3 K/mm3 (4.5-10.0)
[2025-03-20 07:03] LABS: Band Neutrophils Percent 11 % (0-6); Lymphocytes Absolute Manual 0.46 K/mm3 (1.1-4.5); Lymphocytes Percent Manual 2 % (18-44); Monocytes Absolute Manual 0.69 K/mm3 (0.1-0.90); Monocytes Percent Manual 3 % (3-9); Neutrophils Absolute Manual 22.13 K/mm3 (1.3-6.7); Neutrophils Percent Manual 84 % (46-73); Platelet Estimate Adequate (Adequate); Total Cells Counted 100
[2025-03-20 07:04] LABS: Schistocytes None Seen
[2025-03-20] MEDS: polyethylene glycoL 3350 17 GM POWD.PACK FEED TUBE (09:30)
[2025-03-20] MEDS: FAMOTIDINE 20 MG TABLET FEED TUBE ×2 (09:31→21:46)
[2025-03-20] MEDS: SENNA/DOCUSATE SODIUM TABLET 1 TAB PO ×2 (09:31→21:46)
[2025-03-20] MEDS: ENOXAPARIN 40 MG/0.4 ML SYRINGE SUB-Q (09:31)
[2025-03-20 09:46] VITALS: PULSE 106; TEMP 37.6; O2SAT 97
[2025-03-20 09:46] LABS: Lactic Acid Reflex 1.6 mmol/L (0.7-2.0)
[2025-03-20 11:01] LABS: Anion Gap 9 mmol/L (4-12); Blood Urea Nitrogen 10 mg/dL (9-20); Calcium 8.3 mg/dL (8.4-10.2); Carbon Dioxide 24 mmol/L (22-30); Chloride 108 mmol/L (98-107); Estimated Glomerular Filt Rate > 60; Glucose 92 mg/dL (65-110); Potassium 3.7 mmol/L (3.4-5.0); Sodium 141 mmol/L (137-145)
--- NOTE | 2025-03-20 14:11 | PM.EVENT ---
Event Note Event Note Event Note: Patient is a 44-year-old male was seen same day by previous provider followed up with patient who is nonverbal bed-bound unable to communicate or respond questions. Patient was admitted for further evaluation and treatment of sepsis likely secondary to either G tube infection, aspiration pneumonia, or UTI. Urinalysis was suspicious for a urinary tract infection patient with some urinary retention has had in the past ER was unable an unsuccessful to straight cath patient initially CT scan showing bladder wall thickening so I did go ahead and consult Urology for further recommendations will be appreciated patient may benefit from long-term indwelling Cardona catheter placement due to continuous urinary tract infections. G-tube site looks clean no drainage noted or swelling patient appears to be tolerating his tube feedings at this time possibility is he did have nausea vomiting with some aspiration. WBC did trend up to 23 and his MRSA was positive continued with vancomycin and cefepime at this time . Patient was tachycardic HR as in around 130s but resolved with fluid resuscitation still a little tachy in the low 100s. Time of assessment patient appeared comfortable and in no acute distress is avoiding minimally but will put in for bladder scan p.r.n. wondering if he is having some difficulty emptying his bladder which is leading to episodes rotation in distress in his episodes of tachycardia.
[2025-03-20 14:25] VITALS: BP 98/44; PULSE 120; RESP 16; TEMP 37.5; O2SAT 94
[2025-03-20 15:07] VITALS: PULSE 108
--- NOTE | 2025-03-20 19:30 | P.CONUR_ITS ---
Assessment and Plan Assessment and plan (1) UTI (urinary tract infection): Qualifiers: Urinary tract infection type: acute cystitis Hematuria presence: with hematuria Qualified Code(s): N30.01 - Acute cystitis with hematuria Code(s): N39.0 - Urinary tract infection, site not specified Status: Acute Assessment and Plan: on empric abx, await culture, tailor to specificity when available (2) Bladder wall thickening: Code(s): N32.89 - Other specified disorders of bladder Status: Acute Assessment and Plan: bladder wall thickening is likely 2/2 acute UTI Plan he is currently emptying his bladder -check PVR's no evidence of stone or hydro on CT scan agree with empiric broad spectrum abx, no indication for lopez at this time Urology Consult Note HPI Date Seen: 03/20/25 Requesting Physician: Nenita Burroughs DO Primary Care Provider: Thomas Bowden, Consult Narrative Narrative: Ricky Swanson is a 44 year old male with developmental delay, chronic g tube, nonverbal who presented to ER with nausea and vomiting. Pt unable to provide any hx, hx gleand from chart and nursing. Urology consulted for UTI, incomplete bladder emptying. Patient unable to provide any voiding complaints. Ua on cath specimen shows + leuks, nitrite and blood. CT showed bladder wall thickening. No family with patient. Per nursing he has been voiding well, into diapers as he is incontinent. Review of Systems 2 Review of Systems: ROS unobtainable: Yes unobtainable due to mental status Constitutional: Constitutional: Reports as per HPI ENT: Reports as per HPI Respiratory: Respiratory: Reports as per HPI Gastrointestinal: Gastrointestinal: Reports as per HPI Genitourinary: Genitourinary: Reports as per HPI Musculoskeletal: Musculoskeletal: Reports no additional musculoskeletal complaints [facility] Past Medical History Medical History (Updated 03/20/25 @ 19:38 by Marcellus Barber MD) Chronic indwelling Lopez catheter Cognitive developmental delay Autism Surgical History Surgical History (Updated 03/20/25 @ 01:57 by Nenita Burroughs DO) History of gastrostomy tube placement History of exploratory laparotomy (09/2022) Exploratory laparotomy with sigmoid colon resection and colostomy for ischemic bowel. Complicated by septic shock and respiratory failure requiring intubation Family History Family History Other Family history unknown Social History Social History (Updated 03/20/25 @ 01:58 by Nenita Burroughs DO) Social History: Patient lives in [facility] Surrogate medical decision maker: Man Swanson, father or Samia Hale, sister. Code status: Full code. Smoking status: Never smoker Second hand tobacco smoke exposure: No Alcohol intake: never Substance use: never Substance use type: does not use Additional living arrangements comments: Resident at [facility]. Spiritual care concerns: No Meds Home Medications and Allergies Home Medications ?Medication ?Instructions ?Recorded ?Confirmed ?Type famotidine 20 mg tablet 20 mg feeding tube Q12HR 30 days 11/08/22 03/20/25 Rx #60 tabs polyethylene glycol 3350 17 17 g feeding tube DAILY 01/09/24 03/20/25 History gram/dose oral powder (Miralax) sennosides 8.6 mg-docusate sodium 1 tablet PO Q12H 01/09/24 03/20/25 History 50 mg tablet (Senna Plus) promethazine 12.5 mg tablet 12.5 mg feeding tube DAILY PRN 09/28/24 03/20/25 History nausea and vomiting Allergies Allergy/AdvReac Type Severity Reaction Status Date / Time No Known Allergies Allergy Verified 03/19/25 17:19 Vital Signs Vital Signs - 24 hr 03/19/25 21:17 03/19/25 23:00 03/20/25 02:00 Temperature Pulse Rate 114 H 110 H 109 H Respiratory Rate 15 15 17 Blood Pressure 112/64 129/103 H 155/88 H Pulse Oximetry 94 94 96 Oxygen Delivery 03/20/25 04:09 03/20/25 05:38 03/20/25 08:00 Temperature 37.6 C H Pulse Rate 135 H Respiratory Rate 19 Blood Pressure 117/67 Pulse Oximetry 92 Oxygen Delivery Room Air Room Air 03/20/25 09:46 03/20/25 14:25 03/20/25 15:07 Temperature 37.6 C 37.5 C Pulse Rate 106 H 120 H 108 H Respiratory Rate 16 Blood Pressure 98/44 L Pulse Oximetry 97 94 Oxygen Delivery Exam 2 Const: General: no acute distress HENMT: Face/Nose/Sinus: Normal nares present Eyes: EOM: EOMs intact bilaterally Resp: Effort & Inspection: normal respiratory effort Cardio: Rate: regular rate GI: Inspection: non-distended GI Palp: Yes Soft to palpation, No Tenderness to palpation present (GI) and No Guarding due to palpation present (GI) Neuro: Speech: No normal speech (nonverbal) Results Labs 03/20/25 05:51 03/20/25 09:23 Labs: Short CBC 03/19/25 03/20/25 Range/Units 20:48 05:51 WBC 17.2 H 23.3 H (4.5-10.0) K/mm3 Hgb 15.6 13.2 L (14.0-18.0) g/dL Hct 50.0 42.9 (42.0-52.0) % Plt Count 274 204 (150-375) k/mm3 BMP 03/19/25 03/20/25 20:48 09:23 Sodium 139 141 Potassium 4.3 3.7 Chloride 99 108 H Carbon Dioxide 28 24 BUN 12 D 10 Creatinine 0.76 0.84 Glucose 135 H 92 Calcium 9.5 8.3 L Liver Function 03/19/25 Range/Units 20:48 Total Bilirubin 0.7 (0.2-1.3) mg/dL AST 33 (17-59) U/L ALT 34 (6-50) U/L Alkaline Phosphatase 102 (38-126) U/L Albumin 4.9 (3.5-5.1) g/dL Urine 03/19/25 Range/Units 20:48 Urine Color Light red H (Yellow) Urine Appearance Cloudy H (Clear) Urine pH 6.5 (5.0-9.0) Ur Specific [place] > 1.045 H (1.001-1.035) Urine Protein 1+ H (Negative) mg/dL Urine Glucose (UA) Negative (Negative) mg/dL
[2025-03-20] MEDS: VANCOMYCIN 750 MG/NS 250 ML 750 MG/250 ML BAG 250 MG IVPB (21:47)
[2025-03-20 22:00] VITALS: BP 100/46; PULSE 109; RESP 16; TEMP 37.4; O2SAT 96
[2025-03-21] MEDS: CEFEPIME 2 GM/NS 50 ML 2 GM/50 ML BAG IVPB ×4 (00:28→23:26)
[2025-03-21] MEDS: [UNRECOGNIZED DRUG - OTHER] 1 EACH XX (00:28)
[2025-03-21 06:00] VITALS: BP 98/42; PULSE 106; RESP 16; TEMP 37.5; O2SAT 95
[2025-03-21 06:23] LABS: Hematocrit 41.8 % (42.0-52.0); Hemoglobin 12.8 g/dL (14.0-18.0); Mean Corpuscular HGB Conc 30.6 g/dl (32-36); Mean Corpuscular Hemoglobin 27.4 pg (26-34); Mean Corpuscular Volume 89.3 fl (80-100); Mean Platelet Volume 9.2 fl (7.4-10.4); Platelet Count Result 206 k/mm3 (150-375); Red Blood Count 4.68 M/mm3 (4.6-6.20); Red Cell Distribution Width 14.6 % (11.5-14.5); White Blood Count 16.6 K/mm3 (4.5-10.0)
[2025-03-21 06:45] LABS: Alanine Aminotransferase 25 U/L (6-50); Albumin Level 3.6 g/dL (3.5-5.1); Alkaline Phosphatase 81 U/L (38-126); Anion Gap 8 mmol/L (4-12); Aspartate Amino Transferase 36 U/L (17-59); Bilirubin,Total 0.5 mg/dL (0.2-1.3); Blood Urea Nitrogen 8 mg/dL (9-20); Calcium 8.1 mg/dL (8.4-10.2); Carbon Dioxide 27 mmol/L (22-30); Chloride 108 mmol/L (98-107); Estimated CRCL calculation 91 ml/min; Estimated Glomerular Filt Rate > 60; Glucose 111 mg/dL (65-110); Potassium 3.8 mmol/L (3.4-5.0); Sodium 143 mmol/L (137-145)
[2025-03-21] MEDS: ENOXAPARIN 40 MG/0.4 ML SYRINGE SUB-Q (08:17)
[2025-03-21] MEDS: FAMOTIDINE 20 MG TABLET FEED TUBE ×2 (08:17→21:32)
[2025-03-21] MEDS: SENNA/DOCUSATE SODIUM TABLET 1 TAB PO (08:17)
[2025-03-21] MEDS: ACETAMINOPHEN ELIXIR 325 MG/10.15 ML UDC 650 MG FEED TUBE (08:17)
[2025-03-21] MEDS: SODIUM CHLORIDE 0.9% IV 1,000 ML 100 ML IV CONT (08:20)
--- NOTE | 2025-03-21 09:58 | P.PNIM_ITS ---
Progress Note: A&P Assessment and Plan (1) UTI (urinary tract infection): Qualifiers: Hematuria presence: with hematuria Urinary tract infection type: acute cystitis Qualified Code(s): N30.01 - Acute cystitis with hematuria Code(s): N39.0 - Urinary tract infection, site not specified Status: Acute (2) Sepsis: Qualifiers: Sepsis acute organ dysfunction status: without acute organ dysfunction Sepsis type: sepsis due to unspecified organism Qualified Code(s): A41.9 - Sepsis, unspecified organism Code(s): A41.9 - Sepsis, unspecified organism Status: Acute (3) Acute dehydration: Code(s): E86.0 - Dehydration Status: Acute (4) Lactic acidosis: Code(s): E87.20 - Acidosis, unspecified Status: Acute (5) N&V (nausea and vomiting): Qualifiers: Vomiting type: unspecified Qualified Code(s): R11.2 - Nausea with vomiting, unspecified Code(s): R11.2 - Nausea with vomiting, unspecified Status: Acute (6) Autism: Code(s): F84.0 - Autistic disorder Status: Chronic (7) Sinus tachycardia: Code(s): R00.0 - Tachycardia, unspecified Status: Acute Plan Patient presented with sepsis is most likely due to UTI given results of UA. Blood cultures have been obtained and are pending. Patient received greater than 30 mL/kilos fluid bolus. He has been started empiric antibiotic therapy with cefepime and vancomycin. However will discontinue vancomycin as cefepime to cover most common pathogens. -Adjust antibiotic coverage as appropriate depending on culture sensitivities. WBC trending down- 17.2->23.3->16.6 - Tylenol as needed for fever or pain. - Continue maintenance IV fluids with normal saline at 100 mL an hour- will stop atter this bag not to fluid overload pt - trend lactic acid - had good urine output- monitor. Bladder scan with pure wick catheter in place demonstrated about 230 mL and the patient actively urinated more with bladder scan. Patient did have suprapubic tenderness with bladder scan and was quite distressed with evaluation. -Resume home famotidine and home bowel regimen - Zofran has been ordered as needed for nausea. 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 Patient was admitted for further evaluation and treatment of sepsis likely secondary to either G tube infection, aspiration pneumonia, or UTI. Urinalysis was suspicious for a urinary tract infection patient with some urinary retention has had in the past ER was unable an unsuccessful to straight cath patient initially CT scan showing bladder wall thickening. Urology was consulted for further recommendations. G-tube site looks clean no drainage noted or swelling patient appears to be tolerating his tube feedings at this time possibility is he did have nausea vomiting with some aspiration. WBC did trend up to 23 and his MRSA was positive continued with vancomycin and cefepime. Patient was tachycardic HR as in around 130s but resolved with fluid. Assuming care. Pt is seen and examined. Unable to do much assessment as pt is not participating in exam. Appears comfortable and in no pain or distress. Review of Systems Review of Systems: Unobtainable due to patient's history of autism and nonverbal state Exam Narrative: Weight 50.9 kg Const: General: comfortable HENMT: Other: Head is normocephalic atraumatic, mucous membranes not evaluated as patient could would not open his mouth Eyes: Other: Unable to perform due to lack of cooperation Neck: Other: No anterior cervical lymphadenopathy trachea midline Resp: Other: Clear to auscultation bilaterally, decreased breath sounds at the bases Cardio: Other: Sinus tachycardia, 2+ bilateral radial pedal pulses GI: Other: Colostomy in the left lower abdomen, G-tube present, no erythema surrounding G- tube site, tenderness with palpation of suprapubic region : Other: Pure wick catheter in place with cloudy turbid, pale yellow urine Back/Spine/Pelvis: Other: No tenderness to palpation, patient has thoracic kyphosis due to positioning Neuro: Other: Patient has increased tone of his upper and lower extremities in hold his extremities in flexion, he does localize to pain in pushes providers away Extrem: Other: No clubbing, cyanosis or edema, patient hold arms and legs in flexion Psych: Other: Uncooperative with exam, poor judgment and insight Objective Data Vital Signs Vital Signs: Vital Signs - 24 hr 03/20/25 14:25 03/20/25 15:07 03/20/25 22:00 Temperature 99.5 F 99.4 F Pulse Rate 120 H 108 H 109 H Respiratory Rate 16 16 Blood Pressure 98/44 L 100/46 L Pulse Oximetry 94 96 03/21/25 06:00 Temperature 99.5 F Pulse Rate 106 H Respiratory Rate 16 Blood Pressure 98/42 L Pulse Oximetry 95 Intake/Output Intake/Output: Intake & Output 03/18/25 03/19/25 03/20/25 03/21/25 23:59 23:59 23:59 23:59 Intake Total 1000 3398.3 1650 Output Total 1650 100 Balance 1000 1748.3 1550 Meds/Results Medications: Active Medications Generic Name Dose Route Start Last Admin Trade Name Freq PRN Reason Stop Dose Admin Acetaminophen 650 mg 03/20/25 06:02 03/21/25 08:17 Acetaminophen Elixir 325 Mg/10.15 Ml Udc FEED TUBE 650 mg Q4H PRN Administration Mild Pain (1-3) or Fever Enoxaparin Sodium 40 mg 03/20/25 09:00 03/21/25 08:17 Enoxaparin 40 Mg/0.4 Ml Syringe SUB-Q 40 mg DAILY FARZAD Administration Famotidine 20 mg 03/20/25 09:00 03/21/25 08:17 Famotidine 20 Mg Tablet FEED TUBE 20 mg Q12HR FARZAD Administration Cefepime HCl 2 gm in 50 mls @ 100 mls/hr 03/20/25 08:00 03/21/25 08:18 Maxipime 2 Gm/Ns 50 Ml IVPB 100 mls/hr Q8H FARZAD Administration Sodium Chloride 1,000 mls @ 100 mls/hr 03/20/25 01:40 03/21/25 08:20 Normal Saline Iv IV CONT 100 mls/hr .Q10H FARZAD Administration Vancomycin HCl 750 mg in 250 mls @ 250 mls/hr 03/20/25 20:00 03/20/25 21:47 Vancomycin 750 Mg/Ns 250 Ml IVPB 250 mls/hr Q18H FARZAD Administration Ondansetron HCl 4 mg 03/20/25 06:03 Ondansetron Inj 4 Mg/2 Ml Vial IV PUSH Q4H PRN Nausea And Vomiting Polyethylene Glycol 17 gm 03/20/25 09:00 03/21/25 08:18 Polyethylene Glycol 3350 17 Gm Powd.Pack FEED TUBE Not Given DAILY [facility] Senna/Docusate Sodium 1 tab 03/20/25 06:05 03/21/25 08:17 Senna/Docusate Sodium Tablet PO 1 tab Q12HR FARZAD Administration Radiology Results: ITS Impressions Chest X-Ray 03/19/25 19:38 IMPRESSION: Right basilar atelectasis versus pneumonia seen medially. Hyperinflated left lung. Chest/Abdomen/Pelvis CT 03/20/25 08:54 IMPRESSION: 1. Stable appearance of severe bullous emphysema with chronic atelectasis/scarring at the bilateral lower lungs. 2. Percutaneous gastrojejunostomy tube with bulb in distal tip within the small bowel the right lower quadrant with telescoping of the intervening jejunum. 3. Persistent prominent bladder wall thickening which could be due to chronic outlet obstruction from the enlarged prostate or cystitis. 4. Small sliding-type hiatal hernia. Labs Labs: Laboratory Results - last 24 hr 03/20/25 03/21/25 09:23 06:13 WBC 16.6 H RBC 4.68 Hgb 12.8 L Hct 41.8 L MCV 89.3 MCH 27.4 MCHC 30.6 L RDW 14.6 H Plt Count 206 MPV 9.2 Sodium 141 143 Potassium 3.7 3.8 Chloride 108 H 108 H Carbon Dioxide 24 27 Anion Gap 9 8 BUN 10 8 L Creatinine 0.84 0.63 L Estim Creat Clear Calc Not Reportable 91 Estimated GFR > 60 > 60 Glucose 92 111 H Calcium 8.3 L 8.1 L Total Bilirubin 0.5 AST 36 ALT 25 Alkaline Phosphatase 81 Total Protein 7.0 Albumin 3.6 Quality VTE Prophylaxis VTE prophylaxis: pharmacologic ordered (Lovenox 40 mg subQ daily.)
[2025-03-21 11:54] VITALS: BMI 20.5
[2025-03-21 14:00] VITALS: BP 140/79; PULSE 100; RESP 20; TEMP 36.2; O2SAT 96
--- NOTE | 2025-03-21 14:11 | WPDUROPN2 ---
Progress Note: A&P Assessment and Plan (1) UTI (urinary tract infection): Qualifiers: Hematuria presence: with hematuria Urinary tract infection type: acute cystitis Qualified Code(s): N30.01 - Acute cystitis with hematuria Code(s): N39.0 - Urinary tract infection, site not specified Status: Acute Assessment and Plan: - Present on admission - 03/19/25 Urine culture: E.Coli on IV cefepime (susceptibilities pending) - Likely source of bladder wall thickening on CT - Blood cultures NGTD - Incontinent of urine at baseline (2) Enlarged prostate: Code(s): N40.0 - Benign prostatic hyperplasia without lower urinary tract symptoms Status: Acute Assessment and Plan: - Not on any medications at home Plan 44yoM with chronic cognitive deficits, G-tube dependent, nonverbal admitted 03/19 from nursing facility with fever, nausea, vomiting, sepsis (likely etiology). 03/20 CT AP W CON shows prostatomegaly, diffuse bladder wall thickening, left colon 5cm stool ball. No record of PSA on chart review. Renal function stable, Cr 0.63. Leukocytosis downtrending, WBC 16.6 from 23.3. Afebrile overnight. - Agree with culture-directed abx for E.Coli UTI - Please trend and document PVR bladder scan QShift x4 to r/o retention given prostatomegaly - Start HS tamsulosin and continue on discharge - Previously unknown to our practice. Given severity of cognitive deficit, recommend outpatient urology follow-up at a tertiary care center such as [facility] or [facility] for formal bladder/prostate workup after his acute issues resolve. Subjective Subjective Date/Time Seen: 03/21/25 14:11 Interval history: NAEO; Appears comfortable on exam, no distress. He does not attempt to communicate. No family present. -PureWick draining clear benny urine. Gown saturated with urine. -Incontinent of urine at baseline, no PVR bladder scans documented in the past 24hrs. -03/19 Urine culture growing E.Coli (susceptibilities pending) Review of Systems Review of Systems: ROS unobtainable: Yes unobtainable due to mental status Exam Const: Other: Comfortable, no distress, staring at his hands HENMT: Face/Nose/Sinus: Normal nares present Resp: Effort & Inspection: normal respiratory effort GI: Other: G-tube, LLQ Ostomy : Other: PureWick, clear benny urine Psych: Other: Nonverbal Objective Data Vital Signs Vital Signs: Vital Signs - 24 hr 03/20/25 14:25 03/20/25 15:07 03/20/25 22:00 Temperature 99.5 F 99.4 F Pulse Rate 120 H 108 H 109 H Respiratory Rate 16 16 Blood Pressure 98/44 L 100/46 L Pulse Oximetry 94 96 Oxygen Delivery 03/21/25 06:00 03/21/25 08:00 Temperature 99.5 F Pulse Rate 106 H Respiratory Rate 16 Blood Pressure 98/42 L Pulse Oximetry 95 Oxygen Delivery Room Air Intake/Output Intake/Output: Intake & Output 03/18/25 03/19/25 03/20/25 03/21/25 23:59 23:59 23:59 23:59 Intake Total 1000 3398.3 1650 Output Total 1650 100 Balance 1000 1748.3 1550 Meds/Results Medications: Active Medications Generic Name Dose Route Start Last Admin Trade Name Freq PRN Reason Stop Dose Admin Acetaminophen 650 mg 03/20/25 06:02 03/21/25 08:17 Acetaminophen Elixir 325 Mg/10.15 Ml Udc FEED TUBE 650 mg Q4H PRN Administration Mild Pain (1-3) or Fever Enoxaparin Sodium 40 mg 03/20/25 09:00 03/21/25 08:17 Enoxaparin 40 Mg/0.4 Ml Syringe SUB-Q 40 mg DAILY FARZAD Administration Famotidine 20 mg 03/20/25 09:00 03/21/25 08:17 Famotidine 20 Mg Tablet FEED TUBE 20 mg Q12HR FARZAD Administration Cefepime HCl 2 gm in 50 mls @ 100 mls/hr 03/20/25 08:00 03/21/25 08:18 Maxipime 2 Gm/Ns 50 Ml IVPB 100 mls/hr Q8H FARZAD Administration Sodium Chloride 1,000 mls @ 100 mls/hr 03/20/25 01:40 03/21/25 08:20 Normal Saline Iv IV CONT 100 mls/hr .Q10H FARZAD Administration Ondansetron HCl 4 mg 03/20/25 06:03 Ondansetron Inj 4 Mg/2 Ml Vial IV PUSH Q4H PRN Nausea And Vomiting Polyethylene Glycol 17 gm 03/20/25 09:00 03/21/25 08:18 Polyethylene Glycol 3350 17 Gm Powd.Pack FEED TUBE Not Given DAILY FARZAD Senna/Docusate Sodium 1 tab 03/20/25 06:05 03/21/25 08:17 Senna/Docusate Sodium Tablet PO 1 tab Q12HR FARZAD Administration Radiology Results: ITS Impressions Chest X-Ray 03/19/25 19:38 IMPRESSION: Right basilar atelectasis versus pneumonia seen medially. Hyperinflated left lung. Chest/Abdomen/Pelvis CT 03/20/25 08:54 IMPRESSION: 1. Stable appearance of severe bullous emphysema with chronic atelectasis/scarring at the bilateral lower lungs. 2. Percutaneous gastrojejunostomy tube with bulb in distal tip within the small bowel the right lower quadrant with telescoping of the intervening jejunum. 3. Persistent prominent bladder wall thickening which could be due to chronic outlet obstruction from the enlarged prostate or cystitis. 4. Small sliding-type hiatal hernia. Labs Labs: Laboratory Results - last 24 hr 03/21/25 06:13 WBC 16.6 H RBC 4.68 Hgb 12.8 L Hct 41.8 L MCV 89.3 MCH 27.4 MCHC 30.6 L RDW 14.6 H Plt Count 206 MPV 9.2 Sodium 143 Potassium 3.8 Chloride 108 H Carbon Dioxide 27 Anion Gap 8 BUN 8 L Creatinine 0.63 L Estim Creat Clear Calc 91 Estimated GFR > 60 Glucose 111 H Calcium 8.1 L Total Bilirubin 0.5 AST 36 ALT 25 Alkaline Phosphatase 81 Total Protein 7.0 Albumin 3.6
[2025-03-21 16:00] VITALS: BP 140/79; PULSE 100; RESP 20; TEMP 36.3; O2SAT 96
[2025-03-21 21:16] VITALS: BP 138/76; PULSE 98; RESP 19; TEMP 36.4; O2SAT 95
[2025-03-21] MEDS: SENNA/DOCUSATE SODIUM TABLET 1 TAB FEED TUBE (21:32)
[2025-03-22 06:00] VITALS: BP 136/71; PULSE 99; RESP 18; TEMP 36.4; O2SAT 99
[2025-03-22 06:36] LABS: Hematocrit 48.8 % (42.0-52.0); Hemoglobin 14.5 g/dL (14.0-18.0); Mean Corpuscular HGB Conc 29.7 g/dl (32-36); Mean Corpuscular Hemoglobin 27.1 pg (26-34); Mean Platelet Volume 9.5 fl (7.4-10.4); Platelet Count Result 228 k/mm3 (150-375); Red Blood Count 5.36 M/mm3 (4.6-6.20); Red Cell Distribution Width 14.5 % (11.5-14.5)
[2025-03-22 06:52] LABS: Alanine Aminotransferase 27 U/L (6-50); Albumin Level 4.1 g/dL (3.5-5.1); Alkaline Phosphatase 99 U/L (38-126); Anion Gap 16 mmol/L (4-12); Aspartate Amino Transferase 38 U/L (17-59); Bilirubin,Total 0.5 mg/dL (0.2-1.3); Blood Urea Nitrogen 7 mg/dL (9-20); Calcium 8.9 mg/dL (8.4-10.2); Carbon Dioxide 20 mmol/L (22-30); Chloride 105 mmol/L (98-107); Estimated CRCL calculation 97 ml/min; Estimated Glomerular Filt Rate > 60; Glucose 101 mg/dL (65-110); Sodium 141 mmol/L (137-145)
[2025-03-22 07:39] VITALS: BP 118/72; PULSE 85; RESP 14; TEMP 36.8; O2SAT 95
[2025-03-22] MEDS: levoFLOXacin 750 MG TABLET PO (09:32)
[2025-03-22] MEDS: FAMOTIDINE 20 MG TABLET FEED TUBE ×2 (09:32→20:57)
[2025-03-22] MEDS: SENNA/DOCUSATE SODIUM TABLET 1 TAB FEED TUBE ×2 (09:32→20:57)
[2025-03-22] MEDS: ENOXAPARIN 40 MG/0.4 ML SYRINGE SUB-Q (09:33)
[2025-03-22] MEDS: polyethylene glycoL 3350 17 GM POWD.PACK FEED TUBE (09:33)
--- NOTE | 2025-03-22 10:30 | P.PNIM_ITS ---
Progress Note: A&P Assessment and Plan (1) UTI (urinary tract infection): Qualifiers: Hematuria presence: with hematuria Urinary tract infection type: acute cystitis Qualified Code(s): N30.01 - Acute cystitis with hematuria Code(s): N39.0 - Urinary tract infection, site not specified Status: Acute (2) Sepsis: Qualifiers: Sepsis acute organ dysfunction status: without acute organ dysfunction Sepsis type: sepsis due to unspecified organism Qualified Code(s): A41.9 - Sepsis, unspecified organism Code(s): A41.9 - Sepsis, unspecified organism Status: Acute (3) Acute dehydration: Code(s): E86.0 - Dehydration Status: Acute (4) Lactic acidosis: Code(s): E87.20 - Acidosis, unspecified Status: Acute (5) N&V (nausea and vomiting): Qualifiers: Vomiting type: unspecified Qualified Code(s): R11.2 - Nausea with vomiting, unspecified Code(s): R11.2 - Nausea with vomiting, unspecified Status: Acute (6) Autism: Code(s): F84.0 - Autistic disorder Status: Chronic (7) Sinus tachycardia: Code(s): R00.0 - Tachycardia, unspecified Status: Acute Plan Patient presented with sepsis is most likely due to UTI given results of UA. Blood cultures have been obtained and are pending. Patient received greater than 30 mL/kilos fluid bolus. He has been started empiric antibiotic therapy with cefepime and vancomycin. However will discontinue vancomycin as cefepime to cover most common pathogens. -Adjust antibiotic coverage as appropriate depending on culture sensitivities- levofloxacin po 7 total doses- last dose 03/28 0900 WBC trending down- 17.2->23.3->16.6->12 - Tylenol as needed for fever or pain. - Continue maintenance IV fluids with normal saline at 100 mL an hour- will stop atter this bag not to fluid overload pt - trend lactic acid - had good urine output- monitor. Bladder scan with pure wick catheter in place demonstrated about 230 mL and the patient actively urinated more with bladder scan. Patient did have suprapubic tenderness with bladder scan and was quite distressed with evaluation. -Resume home famotidine and home bowel regimen - Zofran has been ordered as needed for nausea. 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 Patient was admitted for further evaluation and treatment of sepsis likely secondary to either G tube infection, aspiration pneumonia, or UTI. Urinalysis was suspicious for a urinary tract infection patient with some urinary retention has had in the past ER was unable an unsuccessful to straight cath patient initially CT scan showing bladder wall thickening. Urology was consulted for further recommendations. G-tube site looks clean no drainage noted or swelling patient appears to be tolerating his tube feedings at this time possibility is he did have nausea vomiting with some aspiration. WBC did trend up to 23 and his MRSA was positive continued with vancomycin and cefepime. Patient was tachycardic HR as in around 130s but resolved with fluid. Assuming care. Pt is seen and examined. Unable to do much assessment as pt is not participating in exam. Appears comfortable and in no pain or distress. 03/22-pt is seen and examined. Appears comfortable. Review of Systems Review of Systems: Unobtainable due to patient's history of autism and nonverbal state Exam Narrative: Weight 50.9 kg Const: General: comfortable Other: Acutely ill-appearing, lying in bed curled up on his right side in the position, thin body habitus HENMT: Other: Head is normocephalic atraumatic, mucous membranes not evaluated as patient could would not open his mouth Eyes: Other: Unable to perform due to lack of cooperation Neck: Other: No anterior cervical lymphadenopathy trachea midline Resp: Other: Clear to auscultation bilaterally, decreased breath sounds at the bases Cardio: Other: Sinus tachycardia, 2+ bilateral radial pedal pulses GI: Other: Colostomy in the left lower abdomen, G-tube present, no erythema surrounding G- tube site, tenderness with palpation of suprapubic region : Other: Pure wick catheter in place with cloudy turbid, pale yellow urine Back/Spine/Pelvis: Other: No tenderness to palpation, patient has thoracic kyphosis due to positioning Skin: Other: Hot to touch, diaphoretic Neuro: Other: Patient has increased tone of his upper and lower extremities in hold his extremities in flexion, he does localize to pain in pushes providers away Extrem: Other: No clubbing, cyanosis or edema, patient hold arms and legs in flexion Psych: Other: Uncooperative with exam, poor judgment and insight Objective Data Vital Signs Vital Signs: Vital Signs - 24 hr 03/21/25 14:00 03/21/25 16:00 03/21/25 20:00 Temperature 97.2 F L 97.4 F L Pulse Rate 100 100 Respiratory Rate 20 20 Blood Pressure 140/79 140/79 Pulse Oximetry 96 96 Oxygen Delivery Room Air 03/21/25 21:16 03/22/25 06:00 03/22/25 07:39 Temperature 97.5 F L 97.6 F 98.2 F Pulse Rate 98 99 85 Respiratory Rate 19 18 14 Blood Pressure 138/76 136/71 118/72 Pulse Oximetry 95 99 95 Oxygen Delivery 03/22/25 08:15 Temperature Pulse Rate Respiratory Rate Blood Pressure Pulse Oximetry Oxygen Delivery Room Air Intake/Output Intake/Output: Intake & Output 03/19/25 03/20/25 03/21/25 03/22/25 23:59 23:59 23:59 23:59 Intake Total 1000 3398.3 1750 900 Output Total 1650 100 150 Balance 1000 1748.3 1650 750 Meds/Results Medications: Active Medications Generic Name Dose Route Start Last Admin Trade Name Freq PRN Reason Stop Dose Admin Acetaminophen 650 mg 03/20/25 06:02 03/21/25 08:17 Acetaminophen Elixir 325 Mg/10.15 Ml Udc FEED TUBE 650 mg Q4H PRN Administration Mild Pain (1-3) or Fever Enoxaparin Sodium 40 mg 03/20/25 09:00 03/22/25 09:33 Enoxaparin 40 Mg/0.4 Ml Syringe SUB-Q 40 mg DAILY FARZAD Administration Famotidine 20 mg 03/20/25 09:00 03/22/25 09:32 Famotidine 20 Mg Tablet FEED TUBE 20 mg Q12HR FARZAD Administration Levofloxacin 750 mg 03/22/25 09:30 03/22/25 09:32 Levofloxacin 750 Mg Tablet PO 03/28/25 09:01 750 mg DAILY FARZAD Administration Ondansetron HCl 4 mg 03/20/25 06:03 Ondansetron Inj 4 Mg/2 Ml Vial IV PUSH Q4H PRN Nausea And Vomiting Polyethylene Glycol 17 gm 03/20/25 09:00 03/22/25 09:33 Polyethylene Glycol 3350 17 Gm Powd.Pack FEED TUBE 17 gm DAILY FARZAD Administration Senna/Docusate Sodium 1 tab 03/21/25 21:00 03/22/25 09:32 Senna/Docusate Sodium Tablet FEED TUBE 1 tab Q12HR FARZAD Administration Tamsulosin HCl 0.4 mg 03/21/25 21:00 03/21/25 21:31 Tamsulosin Hcl 0.4 Mg Capsule PO Not Given QHS [facility] Radiology Results: ITS Impressions Chest X-Ray 03/19/25 19:38 IMPRESSION: Right basilar atelectasis versus pneumonia seen medially. Hyperinflated left lung. Chest/Abdomen/Pelvis CT 03/20/25 08:54 IMPRESSION: 1. Stable appearance of severe bullous emphysema with chronic atelectasis/scarring at the bilateral lower lungs. 2. Percutaneous gastrojejunostomy tube with bulb in distal tip within the small bowel the right lower quadrant with telescoping of the intervening jejunum. 3. Persistent prominent bladder wall thickening which could be due to chronic outlet obstruction from the enlarged prostate or cystitis. 4. Small sliding-type hiatal hernia. Labs Labs: Laboratory Results - last 24 hr 03/22/25 06:03 WBC 12.0 H RBC 5.36 Hgb 14.5 Hct 48.8 MCV 91.0 MCH 27.1 MCHC 29.7 L RDW 14.5 Plt Count 228 MPV 9.5 Sodium 141 Potassium 4.0 Chloride 105 Carbon Dioxide 20 L Anion Gap 16 H BUN 7 L Creatinine 0.59 L Estim Creat Clear Calc 97 Estimated GFR > 60 Glucose 101 Calcium 8.9 Total Bilirubin 0.5 AST 38 ALT 27 Alkaline Phosphatase 99 Total Protein 8.0 Albumin 4.1 Quality VTE Prophylaxis VTE prophylaxis: pharmacologic ordered (Lovenox 40 mg subQ daily.)
--- NOTE | 2025-03-22 10:56 | PCNFU ---
Nutrition Follow-Up Complete: Inability to meet estimated energy needs PO related to dysphagia as evidenced by need for PEG tube feedings Goal:Meet estimated protein energy needs Pt current nutrition is Jevity 1.5 @ 60ml/hr with 100ml flush q 4hrs providing 1980kcals, 84g protein, 1600ml total free water. Nutrition recommendation: continue with current plan of care Last recorded weight is 50.9 kg. Bowel Motility: +BM 03/22 Labs Reviewed: BUN:7, Cr:0.59 Meds Noted: lovenox Skin: WNL Additional Notes: Pt on same tube feeding, at goal rate, tolerating well and meeting needs. Agree with orders, continue with current plan of care Monitoring tube feeding tolerance, labs, meds, skin, output, plan of care Following Tuesdays and Fridays
[2025-03-22 14:28] VITALS: BP 133/95; PULSE 96; RESP 16; TEMP 36.8; O2SAT 97
[2025-03-22] MEDS: TAMSULOSIN HCL 0.4 MG CAPSULE PO (21:00)
[2025-03-22 22:00] VITALS: BP 123/86; PULSE 92; RESP 12; TEMP 36.7; O2SAT 95
[2025-03-23] VITALS: BP 127/82; PULSE 92; RESP 16; TEMP 36.6; O2SAT 95
[2025-03-23 06:00] VITALS: BP 114/68; PULSE 95; RESP 12; TEMP 36.7; O2SAT 95
[2025-03-23 07:55] LABS: Hematocrit 51.1 % (42.0-52.0); Hemoglobin 16.1 g/dL (14.0-18.0); Mean Corpuscular HGB Conc 31.5 g/dl (32-36); Mean Corpuscular Hemoglobin 27.8 pg (26-34); Mean Corpuscular Volume 88.3 fl (80-100); Mean Platelet Volume 9.5 fl (7.4-10.4); Platelet Count Result 226 k/mm3 (150-375); Red Blood Count 5.79 M/mm3 (4.6-6.20); Red Cell Distribution Width 14.4 % (11.5-14.5); White Blood Count 11.2 K/mm3 (4.5-10.0)
[2025-03-23 08:00] VITALS: BP 111/66; PULSE 86; RESP 16; TEMP 36.6; O2SAT 95
[2025-03-23 08:20] LABS: Alanine Aminotransferase 31 U/L (6-50); Anion Gap 10 mmol/L (4-12); Bilirubin,Total 0.7 mg/dL (0.2-1.3); Blood Urea Nitrogen 11 mg/dL (9-20); Calcium 9.1 mg/dL (8.4-10.2); Carbon Dioxide 25 mmol/L (22-30); Chloride 106 mmol/L (98-107); Estimated CRCL calculation 92 ml/min; Estimated Glomerular Filt Rate > 60; Glucose 69 mg/dL (65-110); Sodium 141 mmol/L (137-145)
[2025-03-23 08:27] LABS: Albumin Level 4.1 g/dL (3.5-5.1); Alkaline Phosphatase 88 U/L (38-126); Aspartate Amino Transferase 32 U/L (17-59); Potassium 4.7 mmol/L (3.4-5.0)
--- NOTE | 2025-03-23 09:27 | P.PNUR_ITS ---
Progress Note: A&P Assessment and Plan (1) Enlarged prostate: Code(s): N40.0 - Benign prostatic hyperplasia without lower urinary tract symptoms Status: Acute (2) UTI (urinary tract infection): Qualifiers: Urinary tract infection type: acute cystitis Hematuria presence: with hematuria Qualified Code(s): N30.01 - Acute cystitis with hematuria Code(s): N39.0 - Urinary tract infection, site not specified Status: Acute (3) Bladder wall thickening: Code(s): N32.89 - Other specified disorders of bladder Status: Acute Plan 44yoM with chronic cognitive deficits, G-tube dependent, nonverbal admitted 03/19 from nursing facility with fever, nausea, vomiting, sepsis (likely etiology). 03/20 CT AP W CON shows prostatomegaly, diffuse bladder wall thickening, left colon 5cm stool ball. No record of PSA on chart review. Renal function stable, Cr 0.62. Leukocytosis downtrending, WBC 11.2 from 16.6. Afebrile overnight. - Agree with culture-directed abx for E.Coli UTI - Please trend and document PVR bladder scan QShift x4 to r/o retention given prostatomegaly. no pvr's were completed from yesterday's orders. - Start HS tamsulosin and continue on discharge - Previously unknown to our practice. Given severity of cognitive deficit, recommend outpatient urology follow-up at a tertiary care center such as [facility] or [facility] for formal bladder/prostate workup after his acute issues resolve. Time Spent With Patient Time: . Subjective Subjective Date/Time Seen: 03/23/25 09:27 Interval history: Appears comfortable on exam, no distress. He does not attempt to communicate. No family present. -PureWick draining clear benny urine. -Incontinent of urine at baseline, no PVR bladder scans documented in the past 24hrs. -03/19 Urine culture growing E.Coli Review of Systems Review of Systems: ROS unobtainable: Yes unobtainable due to mental status Exam Narrative: Const: Other: Comfortab le, no distress, s taring at his hand s HENMT: Face/Nose/Sinus: N ormal nares presen t Resp: Effort & Inspectio n: normal respirat ory effort GI: Other: G-tube, L LQ Ostomy : Other: PureWick, clear benny urine Psych: Other: Nonverbal Objective Data Vital Signs Vital Signs: Vital Signs - 24 hr 03/22/25 14:28 03/22/25 22:00 03/23/25 00:00 Temperature 98.2 F 98.0 F 97.9 F Pulse Rate 96 92 92 Respiratory Rate 16 12 16 Blood Pressure 133/95 H 123/86 127/82 Pulse Oximetry 97 95 95 03/23/25 06:00 03/23/25 08:00 Temperature 98.0 F 97.8 F Pulse Rate 95 86 Respiratory Rate 12 16 Blood Pressure 114/68 111/66 Pulse Oximetry 95 95 Intake/Output Intake/Output: Intake & Output 03/20/25 03/21/25 03/22/25 03/23/25 23:59 23:59 23:59 23:59 Intake Total 3398.3 1750 900 Output Total 1650 100 455 50 Balance 1748.3 1650 445 -50 Meds/Results Medications: Active Medications Generic Name Dose Route Start Last Admin Trade Name Freq PRN Reason Stop Dose Admin Acetaminophen 650 mg 03/20/25 06:02 03/21/25 08:17 Acetaminophen Elixir 325 Mg/10.15 Ml Udc FEED TUBE 650 mg Q4H PRN Administration Mild Pain (1-3) or Fever Enoxaparin Sodium 40 mg 03/20/25 09:00 03/22/25 09:33 Enoxaparin 40 Mg/0.4 Ml Syringe SUB-Q 40 mg DAILY FARZAD Administration Famotidine 20 mg 03/20/25 09:00 03/22/25 20:57 Famotidine 20 Mg Tablet FEED TUBE 20 mg Q12HR FARZAD Administration Levofloxacin 750 mg 03/22/25 09:30 03/22/25 09:32 Levofloxacin 750 Mg Tablet PO 03/28/25 09:01 750 mg DAILY FARZAD Administration Mupirocin 1 applic 03/23/25 09:00 Mupirocin 2% Oint 22 Gm Tube EACH NARE 03/27/25 21:01 Q12HR FARZAD Ondansetron HCl 4 mg 03/20/25 06:03 Ondansetron Inj 4 Mg/2 Ml Vial IV PUSH Q4H PRN Nausea And Vomiting Polyethylene Glycol 17 gm 03/20/25 09:00 03/22/25 09:33 Polyethylene Glycol 3350 17 Gm Powd.Pack FEED TUBE 17 gm DAILY FARZAD Administration Senna/Docusate Sodium 1 tab 03/21/25 21:00 03/22/25 20:57 Senna/Docusate Sodium Tablet FEED TUBE 1 tab Q12HR FARZAD Administration Tamsulosin HCl 0.4 mg 03/21/25 21:00 03/22/25 21:00 Tamsulosin Hcl 0.4 Mg Capsule PO 0.4 mg QHS FARZAD Administration Radiology Results: ITS Impressions Chest X-Ray 03/19/25 19:38 IMPRESSION: Right basilar atelectasis versus pneumonia seen medially. Hyperinflated left lung. Chest/Abdomen/Pelvis CT 03/20/25 08:54 IMPRESSION: 1. Stable appearance of severe bullous emphysema with chronic atelectasis/scarring at the bilateral lower lungs. 2. Percutaneous gastrojejunostomy tube with bulb in distal tip within the small bowel the right lower quadrant with telescoping of the intervening jejunum. 3. Persistent prominent bladder wall thickening which could be due to chronic outlet obstruction from the enlarged prostate or cystitis. 4. Small sliding-type hiatal hernia. Labs Labs: Laboratory Results - last 24 hr 03/23/25 06:59 WBC 11.2 H RBC 5.79 Hgb 16.1 Hct 51.1 MCV 88.3 MCH 27.8 MCHC 31.5 L RDW 14.4 Plt Count 226 MPV 9.5 Sodium 141 Potassium 4.7 Chloride 106 Carbon Dioxide 25 Anion Gap 10 BUN 11 Creatinine 0.62 L Estim Creat Clear Calc 92 Estimated GFR > 60 Glucose 69 Calcium 9.1 Total Bilirubin 0.7 AST 32 ALT 31 Alkaline Phosphatase 88 Total Protein 8.0 Albumin 4.1
[2025-03-23] MEDS: polyethylene glycoL 3350 17 GM POWD.PACK FEED TUBE (09:37)
[2025-03-23] MEDS: ENOXAPARIN 40 MG/0.4 ML SYRINGE SUB-Q (09:38)
[2025-03-23] MEDS: FAMOTIDINE 20 MG TABLET FEED TUBE ×2 (09:38→21:01)
[2025-03-23] MEDS: SENNA/DOCUSATE SODIUM TABLET 1 TAB FEED TUBE ×2 (09:39→21:01)
[2025-03-23] MEDS: levoFLOXacin 750 MG TABLET PO (09:39)
[2025-03-23] MEDS: MUPIROCIN 2% OINT 22 GM TUBE 1 APPLIC EACH NARE ×2 (09:40→21:01)
[2025-03-23 13:30] VITALS: O2SAT 94
--- NOTE | 2025-03-23 14:41 | P.PNIM_ITS ---
Progress Note: A&P Assessment and Plan (1) Sepsis: Qualifiers: Sepsis acute organ dysfunction status: without acute organ dysfunction Sepsis type: sepsis due to unspecified organism Qualified Code(s): A41.9 - S epsis, unspecified organism Code(s): A41.9 - Sepsis, unspecified organism Status: Acute Assessment and Plan: Patient was admitted for further evaluation and treatment of sepsis likely secondary to either G tube infection, aspiration pneumonia, or UTI. - received greater than 30 mL/kilos fluid bolus - suspected source: UTI - blood cultures drawn on 03/19: NGTD - Urine culture: Ecoli ESBL - CXR: Right basilar atelectasis versus pneumonia seen medially. Hyperinflated left lung. - Chest/abdomen/pelvis CT: Stable appearance of severe bullous emphysema with chronic atelectasis/scarring at the bilateral lower lungs. Percutaneous gastrojejunostomy tube with bulb in distal tip within the small bowel the right lower quadrant with telescoping of the intervening jejunum. Persistent prominent bladder wall thickening which could be due to chronic outlet obstruction from the enlarged prostate or cystitis. Small sliding-type hiatal hernia. Vital stable. WBC downtrending. (2) Lactic acidosis: Code(s): E87.20 - Acidosis, unspecified Status: Acute Assessment and Plan: LIkely secondary to sepsis due to UTI 2.8>3.6>1.6 (WNL) Improved with IV fluid resuscitation See plan for UTI below (3) UTI (urinary tract infection): Qualifiers: Hematuria presence: with hematuria Urinary tract infection type: acute cystitis Qualified Code(s): N30.01 - Acute cystitis with hematuria Code(s): N39.0 - Urinary tract infection, site not specified Status: Acute Assessment and Plan: - UC ecoli with ESBL - previous micro reviewed 07/01/24, 06/05/24, and 05/03/24: proteus mirabilis with resistance to fluoroquinolones - transitioned to levaquin based on sensitivity results, course to be completed 03/28 (4) Acute dehydration: Code(s): E86.0 - Dehydration Status: Acute Assessment and Plan: Received sepsis bolus and was placed on fluid resuscitation on admission. Resolved. Continue to monitor. (5) Sinus tachycardia: Code(s): R00.0 - Tachycardia, unspecified Status: Acute Assessment and Plan: Patient was tachycardic HR around 130s likely secondary to dehydration vs spesis. Resolved with fluid resuscitation. (6) MRSA (methicillin resistant staph aureus) culture positive: Code(s): Z22.322 - Carrier or suspected carrier of Methicillin resistant Staphylococcus aureus Status: Acute Assessment and Plan: MRSA nares positive. Bacitracin BID x 5 days. (7) Autism: Code(s): F84.0 - Autistic disorder Status: Chronic Assessment and Plan: Chronic, nonverbal (8) Enlarged prostate: Code(s): N40.0 - Benign prostatic hyperplasia without lower urinary tract symptoms Status: Acute Assessment and Plan: Urology consulted - Please trend and document PVR bladder scan QShift x4 to r/o retention given prostatomegaly - Start HS tamsulosin and continue on discharge - Given severity of cognitive deficit, recommend outpatient urology follow-up at a tertiary care center such as [facility] or [facility] for formal bladder/prostate workup after his acute issues resolve. 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 Patient was admitted for further evaluation and treatment of sepsis likely secondary to either G tube infection, aspiration pneumonia, or UTI. Patient is pleasant lying in bed. Unable to obtain ROS given patient is nonverbal. Does not apppear in acute distress. Review of Systems Review of Systems: Unobtainable due to patient's history of autism and nonverbal state Exam Narrative: AF HR 86 RR 16 Spo2 95 BP 111/66 General: male in no acute respiratory distress who is nontoxic appearing, lying semi recumbent in bed. HEENT: Normocephalic. Atraumatic. Extraocular movement intact. Sclera clear and anicteric. No facial asymmetry. Chest: Lungs are clear to auscultation CV: Heart was regular rate and rhythm. Abd: Abdomen was soft. Nontender. Nondistended. Positive bowel sounds. Binder in place. Ext: No clubbing, cyanosis, or edema. DP pulses bilaterally. Neuro: Patient is alert, nonverbal. Objective Data Vital Signs Vital Signs: Vital Signs - 24 hr 03/22/25 22:00 03/23/25 00:00 03/23/25 06:00 Temperature 98.0 F 97.9 F 98.0 F Pulse Rate 92 92 95 Respiratory Rate 12 16 12 Blood Pressure 123/86 127/82 114/68 Pulse Oximetry 95 95 95 Oxygen Delivery 03/23/25 08:00 03/23/25 13:30 Temperature 97.8 F Pulse Rate 86 Respiratory Rate 16 Blood Pressure 111/66 Pulse Oximetry 95 94 Oxygen Delivery Room Air Intake/Output Intake/Output: Intake & Output 03/20/25 03/21/25 03/22/25 03/23/25 23:59 23:59 23:59 23:59 Intake Total 3398.3 1750 900 315 Output Total 1650 100 455 50 Balance 1748.3 1650 445 265 Meds/Results Medications: Active Medications Generic Name Dose Route Start Last Admin Trade Name Freq PRN Reason Stop Dose Admin Acetaminophen 650 mg 03/20/25 06:02 03/21/25 08:17 Acetaminophen Elixir 325 Mg/10.15 Ml Udc FEED TUBE 650 mg Q4H PRN Administration Mild Pain (1-3) or Fever Enoxaparin Sodium 40 mg 03/20/25 09:00 03/23/25 09:38 Enoxaparin 40 Mg/0.4 Ml Syringe SUB-Q 40 mg DAILY FARZAD Administration Famotidine 20 mg 03/20/25 09:00 03/23/25 09:38 Famotidine 20 Mg Tablet FEED TUBE 20 mg Q12HR FARZAD Administration Levofloxacin 750 mg 03/22/25 09:30 03/23/25 09:39 Levofloxacin 750 Mg Tablet PO 03/28/25 09:01 750 mg DAILY FARZAD Administration Mupirocin 1 applic 03/23/25 09:00 03/23/25 09:40 Mupirocin 2% Oint 22 Gm Tube EACH NARE 03/27/25 21:01 1 applic Q12HR FARZAD Administration Ondansetron HCl 4 mg 03/20/25 06:03 Ondansetron Inj 4 Mg/2 Ml Vial IV PUSH Q4H PRN Nausea And Vomiting Polyethylene Glycol 17 gm 03/20/25 09:00 03/23/25 09:37 Polyethylene Glycol 3350 17 Gm Powd.Pack FEED TUBE 17 gm DAILY FARZAD Administration Senna/Docusate Sodium 1 tab 03/21/25 21:00 03/23/25 09:39 Senna/Docusate Sodium Tablet FEED TUBE 1 tab Q12HR FARZAD Administration Tamsulosin HCl 0.4 mg 03/21/25 21:00 03/22/25 21:00 Tamsulosin Hcl 0.4 Mg Capsule PO 0.4 mg QHS FARZAD Administration Radiology Results: ITS Impressions Chest X-Ray 03/19/25 19:38 IMPRESSION: Right basilar atelectasis versus pneumonia seen medially. Hyperinflated left lung. Chest/Abdomen/Pelvis CT 03/20/25 08:54 IMPRESSION: 1. Stable appearance of severe bullous emphysema with chronic atel ectasis/scarring at the bilateral lower lungs. 2. Percutaneous gastrojejunostomy tube with bulb in distal tip within the small bowel the right lower quadrant with telescoping of the intervening jejunum. 3. Persistent prominent bladder wall thickening which could be due to chronic outlet obstruction from the enlarged prostate or cystitis. 4. Small sliding-type hiatal hernia. Labs Labs: Laboratory Results - last 24 hr 03/23/25 06:59 WBC 11.2 H RBC 5.79 Hgb 16.1 Hct 51.1 MCV 88.3 MCH 27.8 MCHC 31.5 L RDW 14.4 Plt Count 226 MPV 9.5 Sodium 141 Potassium 4.7 Chloride 106 Carbon Dioxide 25 Anion Gap 10 BUN 11 Creatinine 0.62 L Estim Creat Clear Calc 92 Estimated GFR > 60 Glucose 69 Calcium 9.1 Total Bilirubin 0.7 AST 32 ALT 31 Alkaline Phosphatase 88 Total Protein 8.0 Albumin 4.1 Quality VTE Prophylaxis VTE prophylaxis: pharmacologic ordered (Lovenox 40 mg subQ daily.)
[2025-03-23 16:00] VITALS: BP 137/84; PULSE 97; RESP 20; TEMP 36.6; O2SAT 94
[2025-03-23] MEDS: TAMSULOSIN HCL 0.4 MG CAPSULE PO (21:01)
[2025-03-24] VITALS: BP 113/65; PULSE 100; RESP 20; TEMP 36.4; O2SAT 95
[2025-03-24 06:00] VITALS: BP 113/65; PULSE 100; RESP 20; TEMP 36.4; O2SAT 95
[2025-03-24 08:26] LABS: Hematocrit 50.2 % (42.0-52.0); Hemoglobin 15.4 g/dL (14.0-18.0); Mean Corpuscular HGB Conc 30.7 g/dl (32-36); Mean Corpuscular Hemoglobin 27.2 pg (26-34); Mean Corpuscular Volume 88.7 fl (80-100); Mean Platelet Volume 9.8 fl (7.4-10.4); Platelet Count Result 251 k/mm3 (150-375); Red Blood Count 5.66 M/mm3 (4.6-6.20); Red Cell Distribution Width 14.6 % (11.5-14.5)
[2025-03-24 08:37] LABS: Alanine Aminotransferase 35 U/L (6-50); Albumin Level 4.3 g/dL (3.5-5.1); Alkaline Phosphatase 76 U/L (38-126); Anion Gap 11 mmol/L (4-12); Aspartate Amino Transferase 33 U/L (17-59); Bilirubin,Total 0.7 mg/dL (0.2-1.3); Blood Urea Nitrogen 15 mg/dL (9-20); Carbon Dioxide 26 mmol/L (22-30); Chloride 103 mmol/L (98-107); Estimated CRCL calculation 94 ml/min; Estimated Glomerular Filt Rate > 60; Glucose 111 mg/dL (65-110); Potassium 4.7 mmol/L (3.4-5.0); Sodium 140 mmol/L (137-145)
[2025-03-24] MEDS: SENNA/DOCUSATE SODIUM TABLET 1 TAB FEED TUBE (08:49)
[2025-03-24] MEDS: FAMOTIDINE 20 MG TABLET FEED TUBE (08:49)
[2025-03-24] MEDS: levoFLOXacin 750 MG TABLET PO (08:49)
[2025-03-24] MEDS: ENOXAPARIN 40 MG/0.4 ML SYRINGE SUB-Q (08:49)
[2025-03-24] MEDS: MUPIROCIN 2% OINT 22 GM TUBE 1 APPLIC EACH NARE (08:50)
--- NOTE | 2025-03-24 09:05 | WPDUROPN2 ---
Progress Note: A&P Assessment and Plan (1) Enlarged prostate: Code(s): N40.0 - Benign prostatic hyperplasia without lower urinary tract symptoms Status: Acute (2) UTI (urinary tract infection): Qualifiers: Urinary tract infection type: acute cystitis Hematuria presence: with hematuria Qualified Code(s): N30.01 - Acute cystitis with hematuria Code(s): N39.0 - Urinary tract infection, site not specified Status: Acute (3) Bladder wall thickening: Code(s): N32.89 - Other specified disorders of bladder Status: Acute Plan 44yoM with chronic cognitive deficits, G-tube dependent, nonverbal admitted 03/19 from nursing facility with fever, nausea, vomiting, sepsis (likely etiology). 03/20 CT AP W CON shows prostatomegaly, diffuse bladder wall thickening, left colon 5cm stool ball. No record of PSA on chart review. Renal function stable, Cr 0.61. Leukocytosis downtrending, WBC 10.0 from 16.6. Afebrile overnight. - Agree with culture-directed abx for E.Coli UTI - -PVR's over the last 18 hours have all been under 100ml except one that was 125ml. These are best guess on timing from last urination due to incontinence. Patient is not retaining urine based on PVR's. - May obtain bladder scan PRN if indicated - Continue tamsulosin and continue on discharge as well - Previously unknown to our practice. Given severity of cognitive deficit, recommend outpatient urology follow-up at a tertiary care center such as [facility] or [facility] for formal bladder/prostate workup after his acute issues resolve. Subjective Subjective Date/Time Seen: 03/24/25 09:05 Interval history: Appears comfortable on exam, no distress. He does not attempt to communicate. No family present. -PureWick draining clear benny urine. -Incontinent of urine at baseline Review of Systems Review of Systems: ROS unobtainable: Yes unobtainable due to mental status Exam Narrative: Const: Other: Comfortab le, no distress, s taring at his hand s HENMT: Face/Nose/Sinus: N ormal nares presen t Resp: Effort & Inspectio n: normal respirat ory effort GI: Other: G-tube, L LQ Ostomy : Other: PureWick, clear benny urine Psych: Other: Nonverbal Const: General: no acute distress Other: Comfortable, no distress, staring at his hands HENMT: Face/Nose/Sinus: Normal nares present Resp: Effort & Inspection: normal respiratory effort GI: Inspection: non-distended Other: G-tube, LLQ Ostomy : Other: PureWick, clear benny urine Neuro: Speech: No normal speech (nonverbal) Objective Data Vital Signs Vital Signs: Vital Signs - 24 hr 03/23/25 13:30 03/23/25 16:00 03/24/25 00:00 Temperature 98 F 97.5 F L Pulse Rate 97 100 Respiratory Rate 20 20 Blood Pressure 137/84 113/65 Pulse Oximetry 94 94 95 Oxygen Delivery Room Air 03/24/25 06:00 Temperature 97.5 F L Pulse Rate 100 Respiratory Rate 20 Blood Pressure 113/65 Pulse Oximetry 95 Oxygen Delivery Intake/Output Intake/Output: Intake & Output 03/21/25 03/22/25 03/23/25 03/24/25 23:59 23:59 23:59 23:59 Intake Total 1750 900 315 Output Total 100 455 250 110 Balance 1650 445 65 -110 Meds/Results Medications: Active Medications Generic Name Dose Route Start Last Admin Trade Name Freq PRN Reason Stop Dose Admin Acetaminophen 650 mg 03/20/25 06:02 03/21/25 08:17 Acetaminophen Elixir 325 Mg/10.15 Ml Udc FEED TUBE 650 mg Q4H PRN Administration Mild Pain (1-3) or Fever Enoxaparin Sodium 40 mg 03/20/25 09:00 03/24/25 08:49 Enoxaparin 40 Mg/0.4 Ml Syringe SUB-Q 40 mg DAILY FARZAD Administration Famotidine 20 mg 03/20/25 09:00 03/24/25 08:49 Famotidine 20 Mg Tablet FEED TUBE 20 mg Q12HR FARZAD Administration Levofloxacin 750 mg 03/22/25 09:30 03/24/25 08:49 Levofloxacin 750 Mg Tablet PO 03/28/25 09:01 750 mg DAILY FARZAD Administration Mupirocin 1 applic 03/23/25 09:00 03/24/25 08:50 Mupirocin 2% Oint 22 Gm Tube EACH NARE 03/27/25 21:01 1 applic Q12HR FARZAD Administration Ondansetron HCl 4 mg 03/20/25 06:03 Ondansetron Inj 4 Mg/2 Ml Vial IV PUSH Q4H PRN Nausea And Vomiting Polyethylene Glycol 17 gm 03/20/25 09:00 03/24/25 08:50 Polyethylene Glycol 3350 17 Gm Powd.Pack FEED TUBE Not Given DAILY [facility] Senna/Docusate Sodium 1 tab 03/21/25 21:00 03/24/25 08:49 Senna/Docusate Sodium Tablet FEED TUBE 1 tab Q12HR FARZAD Administration Tamsulosin HCl 0.4 mg 03/21/25 21:00 03/23/25 21:01 Tamsulosin Hcl 0.4 Mg Capsule PO 0.4 mg QHS FARZAD Administration Radiology Results: ITS Impressions Chest X-Ray 03/19/25 19:38 IMPRESSION: Right basilar atelectasis versus pneumonia seen medially. Hyperinflated left lung. Chest/Abdomen/Pelvis CT 03/20/25 08:54 IMPRESSION: 1. Stable appearance of severe bullous emphysema with chronic atelectasis/scarring at the bilateral lower lungs. 2. Percutaneous gastrojejunostomy tube with bulb in distal tip within the small bowel the right lower quadrant with telescoping of the intervening jejunum. 3. Persistent prominent bladder wall thickening which could be due to chronic outlet obstruction from the enlarged prostate or cystitis. 4. Small sliding-type hiatal hernia. Labs Labs: Laboratory Results - last 24 hr 03/24/25 08:21 WBC 10.0 RBC 5.66 Hgb 15.4 Hct 50.2 MCV 88.7 MCH 27.2 MCHC 30.7 L RDW 14.6 H Plt Count 251 MPV 9.8 Sodium 140 Potassium 4.7 Chloride 103 Carbon Dioxide 26 Anion Gap 11 BUN 15 Creatinine 0.61 L Estim Creat Clear Calc 94 Estimated GFR > 60 Glucose 111 H Calcium 9.0 Total Bilirubin 0.7 AST 33 ALT 35 Alkaline Phosphatase 76 Total Protein 9.0 H Albumin 4.3
--- NOTE | 2025-03-24 13:20 | P.DS_ITS ---
DS: Admitting Diagnosis Discharge Date 03/24/2025 Admitting Diagnosis sepsis lactic acidosis uti acute dehydration sinus tachycardia sinus tachycardia mrsa autism enlarged prostate DS: Discharge Diagnosis Discharge Diagnosis (1) Sepsis: Qualifiers: Sepsis acute organ dysfunction status: without acute organ dysfunction Sepsis type: sepsis due to unspecified organism Qualified Code(s): A41.9 - Sepsis, unspecified organism Code(s): A41.9 - Sepsis, unspecified organism Status: Acute (2) Lactic acidosis: Code(s): E87.20 - Acidosis, unspecified Status: Acute (3) UTI (urinary tract infection): Qualifiers: Hematuria presence: with hematuria Urinary tract infection type: acute cystitis Qualified Code(s): N30.01 - Acute cystitis with hematuria Code(s): N39.0 - Urinary tract infection, site not specified Status: Acute (4) Acute dehydration: Code(s): E86.0 - Dehydration Status: Acute (5) Sinus tachycardia: Code(s): R00.0 - Tachycardia, unspecified Status: Acute (6) MRSA (methicillin resistant staph aureus) culture positive: Code(s): Z22.322 - Carrier or suspected carrier of Methicillin resistant Staphylococcus aureus Status: Acute (7) Autism: Code(s): F84.0 - Autistic disorder Status: Chronic (8) Enlarged prostate: Code(s): N40.0 - Benign prostatic hyperplasia without lower urinary tract symptoms Status: Acute DS: Summary Hospital Course Reason for hospitalization: sepsis lactic acidosis uti acute dehydration sinus tachycardia sinus tachycardia mrsa autism enlarged prostate Hospital Course: 44-year-old male with a past medical history of autism with chronic nonverbal state, 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 Patient meeting sepsis criteria on admission. Patient noted to be dehydrated and tachycardic on admission. Lactic acid elevated. Given sepsis bolus. Lactic returned to WNL. Dehydration and tachycardia resolved. Blood cultures NGTD. CXR showed right basilar atelectasis versus pneumonia seen medially. Hyperinflated left lung. Chest/abdomen/pelvis CT showed stable appearance of severe bullous emphysema with chronic atelectasis/scarring at the bilateral lower lungs, percutaneous g tube with bulb in distal tip within the small bowel the right lower quadrant with telescoping of the intervening jejunum, and persistent prominent bladder wall thickening which could be due to chronic outlet obstruction from the enlarged prostate or cystitis, and a small sliding-type hiatal hernia. Patients UA concerning for infection. Likely cause of infection included uti vs pneumonia. Started on IV antibiotics. MRSA nares positive. Given bacitracin. Culture grew proteus mirabilis and patient transitioned to oral levaquin to complete the course for possible uti vs pneumonia. During admission patient was evaluated by urology for concern of enlarged prostate. PVR bladder scans were performed and unremarkable. Patient is to remain on tamsulosin at discharge. Per urology given severity of cognitive deficit, recommend outpatient urology follow-up at a tertiary care center such as [facility] or [facility] for formal bladder/prostate workup after his acute issues resolve. Patient discharged back to [facility] in a stable condition. He is to continue antibiotics as prescribed and is to follow up with PCP in 1 week. Status at Discharge Functional status at discharge: wheelchair bound Time Spent with Patient Time attestation: Total time spent providing and/or coordinating discharge services: Time spent: Greater than 30 minutes Exam Narrative: AF HR 100 RR 20 SPO2 95 BP 113/65 General: male in no acute respiratory distress who is nontoxic appearing, lying semi recumbent in bed. HEENT: Normocephalic. Atraumatic. Extraocular movement intact. Sclera clear and anicteric. No facial asymmetry. Chest: Lungs are clear to auscultation CV: Heart was regular rate and rhythm. Abd: Abdomen was soft. Nontender. Nondistended. Positive bowel sounds. G tube in place, no signs of infection. Colostomy. Binder in place. Ext: No clubbing, cyanosis, or edema. DP pulses bilaterally. Neuro: Patient is alert, nonverbal. DS: Data Data Completed and Pending Completed studies during hospitalization: chest/abdomen/pelvis ct chest xr Labs on day of discharge: Labs from last 24 hours 03/24/25 08:21 WBC 10.0 RBC 5.66 Hgb 15.4 Hct 50.2 MCV 88.7 MCH 27.2 MCHC 30.7 L RDW 14.6 H Plt Count 251 MPV 9.8 Sodium 140 Potassium 4.7 Chloride 103 Carbon Dioxide 26 Anion Gap 11 BUN 15 Creatinine 0.61 L Estim Creat Clear Calc 94 Estimated GFR > 60 Glucose 111 H Calcium 9.0 Total Bilirubin 0.7 AST 33 ALT 35 Alkaline Phosphatase 76 Total Protein 9.0 H Albumin 4.3 Preliminary micro results at discharge 03/19/25 23:24 Blood Culture - Preliminary Blood 03/19/25 23:46 Blood Culture - Preliminary Blood Discharge Plan Discharge Attending physician on discharge: Carlos Enrique Frias Consulting providers: Lakesha Rebolledo; Marcellus Barber Discharging Clinician: Anali Sandoval Anticipated Discharge Date/Time: 03/24/25 13:12 Patient Disposition: ME Usp/Asst Living Activity: as tolerated Diet: as tolerated Discharge Instructions: Discharge disposition: Patient admitted to the hospital for urinary tract infection and dehydration Take all medications as prescribed even if feeling better Levaquin daily, course to be completed on 03/28 Eat well balanced meals and stay hydrated Keep active to remain strong Avoid use of diapers or pads Good nabil Care every 2 hours Trend urine output MRSA positive of the nares Continue bacitracin twice a day, course to be completed on 03/27 Attached is information on this medication Patient evaluated by urology for concern of urinary retention Started on tamsulosin, attached is information on this medication Continue bladder scan as needed Given severity of cognitive deficit, recommend outpatient urology follow-up at a tertiary care center such as [facility] for formal bladder/prostate workup after his acute issues resolve. Monitor blood pressures Take caution while standing, rising, or moving Change positions slowly taking a break between each position change If you standing feel dizzy sit back down and take a break Encouraged to continue with yearly vaccinations Return to the emergency department if he developed sudden shortness of breath, chest pain, nausea, vomiting, upset stomach or intractable diarrhea Return to the emergency department if you develop fever greater than 101.5 Follow-up with the primary care physician within 1-2 weeks Thank you for choosing [facility] for your healthcare needs Patient Instructions: Antibiotic Form, Levofloxacin (By mouth), Tamsulosin (By mouth), MRSA (Methicillin-Resistant Staphylococcus Aureus) (GEN), Urinary Retention in Men (GEN) Patient Language: Spanish Stand Alone Forms: General Discharge Information Follow-up/Referrals: Kal,MD Thomas [Primary Care Provider] - 1 Week Discharge Medications: New mupirocin 2 % Ointment 1 applic EACH NARE Q12HR Qty: 15 0RF tamsulosin 0.4 mg Capsule 0.4 mg PO QHS Qty: 30 0RF levofloxacin 750 mg tablet 750 mg PO DAILY 4 Days Qty: 4 0RF Continued famotidine 20 mg Tablet 20 mg feeding tube Q12HR 30 Days Qty: 60 0RF sennosides-docusate sodium [Senna Plus] 8.6-50 mg Tablet 1 tablet PO Q12H polyethylene glycol 3350 [Miralax] 17 gram/dose Powder 17 g feeding tube DAILY promethazine 12.5 mg tablet 12.5 mg feeding tube DAILY PRN (Reason: nausea and vomiting) Date of admission: 03/20/25 01:50 Primary Care Provider: KalThomas Admitting Provider: Nenita Burroughs Attending physician on admission: Anali Sandoval Condition: Stable Hospitalist MIPS Heart Failure (Exclusion) Patient has history of Heart Transplant or Left Ventricular Assistive Device?: No IF YES, STOP HERE Heart Failure (Qualifier) Patient has current or prior documentation of LVEF less than or equal to 40%, or mod/servere depressed LVSF?: No IF NO, STOP HERE
== END 2025-03-24 14:55 | DRG 720 ==
LOC: ANHED 03-20 01:50 → ANH3MEDSUR 03-20 02:38
PROVIDERS: Nurse Practitioner Family; Admitting Provider Internal Medicine; Emergency Provider Emergency Medicine; PCP Internal Medicine; Visit Provider Student in an Organized Health Care Education/Training Program
DX: A41.9 Sepsis, unspecified organism (principal); N39.0 Urinary tract infection, site not specified; B96.20 Unspecified Escherichia coli [E. coli] as the cause of diseases classified elsewhere; R32 Unspecified urinary incontinence; E87.21 Acute metabolic acidosis; E86.0 Dehydration; J69.0 Pneumonitis due to inhalation of food and vomit; J18.9 Pneumonia, unspecified organism; K56.609 Unspecified intestinal obstruction, unspecified as to partial versus complete obstruction; K56.7 Ileus, unspecified; N32.89 Other specified disorders of bladder; R00.0 Tachycardia, unspecified; F84.0 Autistic disorder; N40.1 Benign prostatic hyperplasia with lower urinary tract symptoms; J98.11 Atelectasis; K44.9 Diaphragmatic hernia without obstruction or gangrene; Z93.1 Gastrostomy status; Z93.3 Colostomy status; Z22.322 Carrier or suspected carrier of Methicillin resistant Staphylococcus aureus; Z99.3 Dependence on wheelchair; Z74.01 Bed confinement status
CPT/HCPCS: 36415; 71045; 71260; 74177; 80048; 80053; 81001; 83605; 83690; 83735; 85025; 85027; 85610; 85730; 87040; 87086; 87186; 87637; 87641; 93005; 96361; 96365; 96367; 96372; 96374; 99285; A9270; J0692; J1630; J1650; J2060; J2405; J3370; J7030; Q9967

== ENCOUNTER 2025-03-27 23:27 | Emergency (ER) | payer OTHER, SELFPAY ==
--- NOTE | ~2025-03-27 | XR_ITS ---
Portable chest x-ray Comparison: 03/19/2025 Clinical History: Seizure activity Findings: There is right basilar airspace opacity. Left lung clear. Cardiomediastinal silhouette is stable. Bones and soft tissues are unremarkable. Impression: Right basilar atelectasis versus pneumonia. Reviewed, dictated and finalized at [facility]. Impression: Right basilar atelectasis versus pneumonia.
--- NOTE | ~2025-03-27 | CT_ITS ---
Non-contrast Head CT History: Altered mental status Technique: Axial non-contrast imaging of the brain was performed. Dose reduction technique was used on this scan by utilizing automated exposure control and iterative reconstruction technique. The dose -length product (DLP) was 1664.67 mGy-cm. Findings: There is no evidence of intracranial hemorrhage, mass lesion, or acute infarct. Brain par enchyma appears normal. The ventricles and subarachnoid spaces are normal in size. The calvarium ap pears normal. The visualized paranasal sinuses and mastoid air cells are clear. Impression: No significant abnormality seen. Reviewed, dictated and finalized at location . Impression: No significant abnormality seen.
[2025-03-27 23:21] VITALS: BP 109/84; PULSE 87; RESP 16; TEMP 36.4; O2SAT 94
--- NOTE | 2025-03-27 23:43 | ED.GENADULT ---
HPI - General Adult General Chief complaint: Nausea/Vomiting/Diarrhea Stated complaint: n/v sz activity History of Present Illness HPI narrative: 44-year-old male with history of cognitive developmental delay autism with G-tube and colostomy present to the emergency department for less than 1 minute of seizure after having an episode of nausea and vomiting. Upon arrival emergency department patient is at his expected baseline and is alert. Patient has no prior history of seizure. Related Data Home Medications ?Medication ?Instructions ?Recorded ?Confirmed ?Last Taken ?Type polyethylene glycol 3350 17 17 g feeding tube DAILY 01/09/24 03/20/25 03/19/25 07:15 History gram/dose oral powder (Miralax) sennosides 8.6 mg-docusate sodium 1 tablet PO Q12H 01/09/24 03/20/25 03/19/25 07:15 History 50 mg tablet (Senna Plus) promethazine 12.5 mg tablet 12.5 mg feeding tube DAILY PRN 09/28/24 03/20/25 Unknown History nausea and vomiting Allergies Allergy/AdvReac Type Severity Reaction Status Date / Time No Known Allergies Allergy Verified 03/19/25 17:19 Review of Systems Review of Systems: All systems reviewed & are unremarkable except as noted in HPI and below [facility] Past Medical History Medical History (Updated 03/28/25 @ 00:30 by Gabo Boswell MD) Chronic indwelling Cardona catheter Cognitive developmental delay Autism Surgical History Surgical History (Updated 03/20/25 @ 01:57 by Nenita Burroughs DO) History of gastrostomy tube placement History of exploratory laparotomy (09/2022) Exploratory laparotomy with sigmoid colon resection and colostomy for ischemic bowel. Complicated by septic shock and respiratory failure requiring intubation Family History Family History Other Family history unknown Social History Social History (Updated 03/20/25 @ 01:58 by Nenita Burroughs DO) Social History: Patient lives in [facility] Surrogate medical decision maker: Man Swanson, father or Samia Hale, sister. Code status: Full code. Smoking status: Never smoker Second hand tobacco smoke exposure: No Alcohol intake: never Substance use: never Substance use type: does not use Additional living arrangements comments: Resident at [facility]. Spiritual care concerns: No Exam Narrative: APPEARANCE: Well appearing, no pain, no distress, well-nourished. HEAD: normocephalic, atraumatic. EYES: PERRLA/EOMI, conjunctivae clear. NOSE: Normal no drainage EARS:TMS clear with good light reflex. THROAT: Pharynx clear, no exudate. NECK: Supple. No adenopathy, no masses. RESPIRATORY: Airway patent, respirations nonlabored. Clear to auscultation bilaterally, no rales, rhonchi, wheezing. CARDIOVASCULAR: Regular rate and rhythm without murmurs rubs or gallops. ABDOMINAL: Soft, nontender, nondistended, normal bowel sounds MUSCULOSKELETAL: Moves all extremities. Strength/ROM intact, No edema, No calf tenderness. NEURO: Alert. Cranial nerves II through XII intact. Good gait. Good coordination SKIN: Warm, dry. Normal Color Course Vital Signs Vital signs: Vital Signs Temperature 97.5 F L 03/27/25 23:21 Pulse Rate 87 03/27/25 23:21 Respiratory Rate 16 03/27/25 23:21 Blood Pressure 109/84 03/27/25 23:21 Pulse Oximetry 94 03/27/25 23:21 Oxygen Delivery Room Air 03/27/25 23:21 Temperature 98.1 F 03/28/25 00:37 Pulse Rate 81 03/28/25 00:37 Respiratory Rate 17 03/28/25 00:37 Blood Pressure 107/60 03/28/25 00:37 Pulse Oximetry 98 03/28/25 00:37 Oxygen Delivery Room Air 03/27/25 23:21 Medical Decision Making [facility] Narrative Medical decision making narrative: 44-year-old male presents emergency department evaluation for possible seizure. Patient is afebrile but does have a leukocytosis of 16 and hemoglobin of 15.9. Patient off had a leukocytosis. No significant acute abnormalities on the CMP. Patient's lactic acid was not elevated. Head CT was negative for acute intracranial abnormality chest x-ray was negative for acute cardiopulmonary abnormality. Differential Diagnosis Differential Diagnosis: Seizure, nausea vomiting, orthostatic hypotension, pneumonia, subdural hematoma, subarachnoid hemorrhage Vital Signs Vital Signs: Vital Signs Temperature 97.5 F L 03/27/25 23:21 Pulse Rate 87 03/27/25 23:21 Respiratory Rate 16 03/27/25 23:21 Blood Pressure 109/84 03/27/25 23:21 Pulse Oximetry 94 03/27/25 23:21 Oxygen Delivery Room Air 03/27/25 23:21 Temperature 98.1 F 03/28/25 00:37 Pulse Rate 81 03/28/25 00:37 Respiratory Rate 17 03/28/25 00:37 Blood Pressure 107/60 03/28/25 00:37 Pulse Oximetry 98 03/28/25 00:37 Oxygen Delivery Room Air 03/27/25 23:21 Lab Data Lab results reviewed: Yes I reviewed the patient's lab results. 03/27/25 23:39 03/27/25 23:39 Labs: Lab Results 03/27/25 Range/Units 23:39 WBC 16.0 H (4.5-10.0) K/mm3 RBC 5.89 (4.6-6.20) M/mm3 Hgb 15.9 (14.0-18.0) g/dL Hct 52.3 H (42.0-52.0) % MCV 88.8 (80-100) fl MCH 27.0 (26-34) pg MCHC 30.4 L (32-36) g/dl RDW 14.4 (11.5-14.5) % Plt Count 321 (150-375) k/mm3 MPV 9.5 (7.4-10.4) fl Immature Gran % (Auto) 0.8 H (0-0.5) % Neut % (Auto) 75.4 H (45.5-73.1) % Lymph % (Auto) 16.1 L (18.3-44.2) % Saline % (Auto) 6.8 (2.6-8.5) % Eos % (Auto) 0.5 (0-4.4) % Baso % (Auto) 0.4 (0.2-1.2) % Lymph # (Auto) 2.58 (0.9-3.2) K/mm3 Saline # (Auto) 1.1 H (0.1-0.6) K/mm3 Eos # (Auto) 0.1 (0-0.3) K/mm3 Baso # (Auto) 0.1 (0.0-0.1) K/mm3 Abs Immat Gran (auto) 0.13 H (0.00-0.031) K/mm3 Absolute Neuts (auto) 12.1 H (1.3-6.7) K/mm3 Absolute Nucleated RBC 0.000 (0.0-0.012) K/mm3 Nucleated RBC % 0.0 (0.0-0.2) % Sodium 141 (137-145) mmol/L Potassium 4.5 (3.4-5.0) mmol/L Chloride 100 (98-107) mmol/L Carbon Dioxide 29 (22-30) mmol/L Anion Gap 12 (4-12) mmol/L BUN 20 (9-20) mg/dL Creatinine 0.87 (0.7-1.3) mg/dL Estim Creat Clear Calc 72 ml/min Estimated GFR > 60 (59 - ) Glucose 142 H (65-110) mg/dL Lactic Acid 1.6 (0.7-2.0) mmol/L Calcium 8.9 (8.4-10.2) mg/dL Total Bilirubin 1.0 (0.2-1.3) mg/dL AST 38 (17-59) U/L ALT 55 H (6-50) U/L Alkaline Phosphatase 96 (38-126) U/L Total Protein 9.0 H (6.3-8.2) g/dL Albumin 4.8 (3.5-5.1) g/dL Imaging Data Radiologist's impression: Overnight read CT head: No acute intracranial hemorrhage. No midline shift or mass effect. The territorial kirk-white matter differentiation is retained throughout. The ventricles and sulci are commensurate with age. Discharge Plan Discharge Clinical Impression: Nausea & vomiting Patient Disposition: NH Alf/Asst Living Condition: Stable Instructions: Antibiotic Form, Acute Nausea and Vomiting (ED) Additional Instructions: Zofran as needed for nausea and vomiting. Have close follow-up with the primary care physician. Patient Language: Kiswahili Prescriptions: New ondansetron 4 mg tablet,disintegrating 4 mg PO Q8H PRN (Reason: nausea and vomiting) Qty: 14 0RF No Action famotidine 20 mg Tablet 20 mg feeding tube Q12HR 30 Days Qty: 60 0RF sennosides-docusate sodium [Senna Plus] 8.6-50 mg Tablet 1 tablet PO Q12H polyethylene glycol 3350 [Miralax] 17 gram/dose Powder 17 g feeding tube DAILY promethazine 12.5 mg tablet 12.5 mg feeding tube DAILY PRN (Reason: nausea and vomiting) tamsulosin 0.4 mg Capsule 0.4 mg PO QHS Qty: 30 0RF levofloxacin 750 mg tablet 750 mg PO DAILY 4 Days Qty: 4 0RF Follow-up/Referrals: Kal,MD Thomas [Primary Care Provider] -
[2025-03-27 23:45] LABS: Basophils Absolute Auto 0.1 K/mm3 (0.0-0.1); Basophils Percent Auto 0.4 % (0.2-1.2); Eosinophils Absolute Auto 0.1 K/mm3 (0-0.3); Eosinophils Percent Auto 0.5 % (0-4.4); Hematocrit 52.3 % (42.0-52.0); Hemoglobin 15.9 g/dL (14.0-18.0); Immature Granulocyte Absolute 0.13 K/mm3 (0.00-0.031); Immature Granulocyte Percent A 0.8 % (0-0.5); Lymphocytes Absolute Auto 2.58 K/mm3 (0.9-3.2); Lymphocytes Percent Auto 16.1 % (18.3-44.2); Mean Corpuscular HGB Conc 30.4 g/dl (32-36); Mean Corpuscular Volume 88.8 fl (80-100); Mean Platelet Volume 9.5 fl (7.4-10.4); Monocytes Absolute Auto 1.1 K/mm3 (0.1-0.6); Monocytes Percent Auto 6.8 % (2.6-8.5); Neutrophils Absolute Auto 12.1 K/mm3 (1.3-6.7); Neutrophils Percent Auto 75.4 % (45.5-73.1); Platelet Count Result 321 k/mm3 (150-375); Red Blood Count 5.89 M/mm3 (4.6-6.20); Red Cell Distribution Width 14.4 % (11.5-14.5)
[2025-03-27 23:54] LABS: Lactic Acid Reflex 1.6 mmol/L (0.7-2.0)
[2025-03-27 23:55] LABS: Alanine Aminotransferase 55 U/L (6-50); Albumin Level 4.8 g/dL (3.5-5.1); Alkaline Phosphatase 96 U/L (38-126); Anion Gap 12 mmol/L (4-12); Aspartate Amino Transferase 38 U/L (17-59); Blood Urea Nitrogen 20 mg/dL (9-20); Calcium 8.9 mg/dL (8.4-10.2); Carbon Dioxide 29 mmol/L (22-30); Chloride 100 mmol/L (98-107); Estimated CRCL calculation 72 ml/min; Estimated Glomerular Filt Rate > 60; Glucose 142 mg/dL (65-110); Potassium 4.5 mmol/L (3.4-5.0); Sodium 141 mmol/L (137-145)
[2025-03-28] MEDS: LACTATED RINGERS 1,000 ML 999 ML IV CONT (00:05)
[2025-03-28 00:37] VITALS: BP 107/60; PULSE 81; RESP 17; TEMP 36.7; O2SAT 98
--- NOTE | 2025-03-28 00:46 | PC.NURSE ---
report called to gutierrez at [facility]. ETA of ems x30 minutes.
== END 2025-03-28 01:20 ==
PROVIDERS: Emergency Provider Emergency Medicine; PCP Internal Medicine
DX: R11.2 Nausea with vomiting, unspecified (principal)
CPT/HCPCS: 36415; 70450; 71045; 80053; 83605; 85025; 96360; 99284; J7120

== ENCOUNTER 2025-04-02 03:59 | Inpatient (IN) | payer OTHER, SELFPAY ==
[2025-04-02] VITALS (36 sets, daily range): BP systolic 95–135; BP diastolic 63–88; PULSE 121–164; RESP 15–34; TEMP 36.6–37.4; O2SAT 94–100
--- NOTE | ~2025-04-02 | CT_ITS ---
EXAMINATION: CT abdomen pelvis wo con DATE: 04/04/2025 21:07 INDICATION: G tube placement TECHNIQUE: Computed tomography (CT) of the abdomen and pelvis was performed without intravenous contr ast. Automated exposure control and iterative reconstruction technique were employed. The dose-length product was 248.88 mGy-cm. COMPARISON: CT CAP 04/02/2025. FINDINGS: Exam limited by beam hardening from arm down positioning. Lower thorax: Large lower lung bullae. Dependent atelectasis/consolidation. Liver: Normal. Biliary/Gallbladder: Gallbladder is normal. No bile duct dilation. Pancreas: No mass or duct dilation. Spleen: Normal. Adrenals:No mass. Kidneys: No suspicious mass, obstructing stone, or hydronephrosis. Likely simple left lower pole cyst . GI tract: Mild distal esophageal wall thickening. A GJ tube enters the anterior abdomen, with mild bird rrounding soft tissue thickening along the tract, the distal tube and balloon terminates in the dista l aspect of the duodenum/proximal jejunum. There is contrast filling multiple loops of large and smal l bowel. Status post right distal colectomy. Distortion of the normal cecal and adjacent distal small bowel anatomy, with loss of normal fat planes. Left lower quadrant ostomy. Retained fecal material i n the rectal vault. No small or large bowel dilation. Normal appendix. Mesentery/Peritoneum: No ascites, mass, or free air. Retroperitoneum: No mass. Pelvis: Mild prostatomegaly. Partially distended urinary bladder with moderate wall thickening. Soft Tissues: Soft tissues and body wall unremarkable. Bones: No acute osseous finding. IMPRESSION: Large lower lobe bullae. Dependent atelectasis/consolidation. Esophagitis. GJ tube, in good position. Distorted cecal and adjacent small bowel anatomy, with loss of normal intervening fat planes, may rep resent adhesion/scarring. No bowel dilation to suggest obstruction. Fistulous connection is not exclu ded. Retained fecal material in the rectal vault. Possible cystitis. Reviewed, dictated and finalized at location K. IMPRESSION: Large lower lobe bullae. Dependent atelectasis/consolidation. Esophagitis. GJ tube, in good position. Distorted cecal and adjacent small bowel anatomy, with loss of normal interveni ng fat planes, may represent adhesion/scarring. No bowel dilation to suggest ob struction. Fistulous connection is not excluded. Retained fecal material in the rectal vault. Possible cystitis.
--- NOTE | ~2025-04-02 | XR_ITS ---
EXAMINATION: XR chest 1V portable DATE: 04/02/2025 06:37 INDICATION: Tachycardia and sepsis TECHNIQUE: frontal view of the chest was obtained. COMPARISON: Chest radiograph dated 03/27/[address] dated 03/19/2025 FINDINGS: Increased lucency and some architectural distortion in the bilateral upper lung zones consistent with emphysema better appreciated on prior CT. Patient is rotated slightly towards the right. Mildly decr eased right and increased left lung volumes. Opacities at the bilateral lung bases which could repres ent atelectasis or pneumonia. Heart size is normal. IMPRESSION: 1. Emphysema with bibasilar opacities which could represent atelectasis or pneumonia. Reviewed, dictated and finalized at location A. IMPRESSION: 1. Emphysema with bibasilar opacities which could represent atelectasis or pneu monia.
--- NOTE | ~2025-04-02 | XR_ITS ---
EXAMINATION: XR abdomen obstructive series DATE: 04/06/2025 15:49 INDICATION: Intussusception in small bowel obstruction. TECHNIQUE: Frontal supine and upright views of the abdomen were obtained. COMPARISON: None. FINDINGS: No dilated loops of gas-filled small bowel to suggest obstruction. Gastrojejunostomy tube with distal tip in the left lower quadrant. Emphysema with asymmetric hyperexpansion of the left lung resulting in rightward shift the heart and mediastinum. No free intraperitoneal gas. IMPRESSION: 1. No free intraperitoneal gas or dilated gas-filled loops of bowel to suggest obstruction. Reviewed, dictated and finalized at location A.
--- NOTE | ~2025-04-02 | XR_ITS ---
EXAM: XR abdomen gastric tube rechec DATE: 04/04/2025 17:43 HISTORY: gj tube placement. Recheck . COMPARISON: 01/08/2025. FINDINGS: Right hemidiaphragm elevation. Atelectasis/consolidation in the right lung base. Possible colonic interposition. Contrast fills an enteric tube over the midline abdomen which appears to termi mireya over the stomach, however there is no gastric filling with contrast. Contrast fills multiple loo ps of small bowel. No definite extravasation, however this determination is difficult given the overl elin artifact from dense, possibly fabric material, possibly retained contrast, and multiple overlapp ing EKG leads. IMPRESSION: Gastric tube apparently terminating over the stomach, without gastric filling. Small deborah l contrast filling, without definite contrast extravasation, however this determination is limited by artifact. Recommend CT of the abdomen and pelvis without contrast to conclusively determined tube po sition and evaluate the scattered possibly artifactual hyperdensities. Reviewed, dictated and finalized at location K. IMPRESSION: Gastric tube apparently terminating over the stomach, without gastr ic filling. Small bowel contrast filling, without definite contrast extravasati on, however this determination is limited by artifact. Recommend CT of the abdo men and pelvis without contrast to conclusively determined tube position and ev aluate the scattered possibly artifactual hyperdensities.
--- NOTE | ~2025-04-02 | CT_ITS ---
EXAMINATION: CT chest abdomen pelvis w con DATE: 04/02/2025 07:25 INDICATION: Tachycardia. Nausea and vomiting. TECHNIQUE: Computed tomography (CT) of the chest, abdomen, and pelvis was performed with 100 mL Omnip aque-350 intravenous contrast. Automated exposure control and iterative reconstruction technique were employed. The dose-length product was 384.63 mGy-cm. COMPARISON: None FINDINGS: CHEST CT: Emphysema with single large bulla occupying the anterior half of the left hemithorax and additional l arge bulla occupying the anterior third of the right hemithorax. There is dependent atelectasis in joe th lungs with lower lobe predominance. No pneumonia, pulmonary edema, pleural effusion or pneumothora x. Heart size is normal. No pericardial effusion. Thoracic aorta is normal in caliber with no dissect ion. Small sliding-type hiatal hernia. No pathologically enlarged thoracic lymphadenopathy. Small sli ding-type hiatal hernia. There is mild wall thickening along the esophagus suggesting reflux esophagi tis related to reported history of nausea and vomiting. Bones are unremarkable. ABDOMEN/PELVIS CT: Percutaneous gastrojejunostomy tube which extends through the stomach into the small bowel with bulb and distal tip positioned within the small bowel in the right lower quadrant. There is a small bowel intussusception along the course of the jejunostomy tube. No dilated bowel to suggest obstruction. St atus post right distal colectomy with left lower quadrant end colostomy. Lowe's pouch in the pelvi s containing a persistent 5 cm ball of stool. Couple unchanged hepatic cysts measuring up to 1 cm. Ga llbladder, spleen, pancreas, bilateral adrenal glands and right kidney are normal. There are couple l eft renal cysts measuring up to 2.0 cm. Prostatomegaly. Bladder is normal. No free intraperitoneal ga s or fluid. No pathologically enlarged abdominal or pelvic lymphadenopathy. Hypoplastic bilateral rib lets at T12 and sacralized L5 segment with 4 intervening nonrib-bearing lumbar segments. IMPRESSION: 1. Stable appearance of severe bullous emphysema with chronic atelectasis/scarring at the bilateral lower lungs. 2. Proximal jejunal small bowel intussusception along a percutaneous gastrojejunostomy tube. 3. Small sliding-type hiatal hernia and diffuse mild wall thickening along the esophagus suggestive o f reflux esophagitis related to reported nausea and vomiting. Reviewed, dictated and finalized at location A. IMPRESSION: 1. Stable appearance of severe bullous emphysema with chronic atelectasis/scarr ing at the bilateral lower lungs. 2. Proximal jejunal small bowel intussusception along a percutaneous gastrojeju nostomy tube. 3. Small sliding-type hiatal hernia and diffuse mild wall thickening along the esophagus suggestive of reflux esophagitis related to reported nausea and vomit ing.
--- NOTE | 2025-04-02 04:03 | ECG_ITS ---
Test Date: 2025-04-02 04:09:21 Measurements Intervals [place] Rate: 139 P: 46 OR: 119 QRS: 34 QRSD: 78 T: 97 QT: 288 QTc: 439 Interpretive Statements SINUS TACHYCARDIA WITH SHORT OR INTERVAL NONSPECIFIC T-WAVE ABNORMALITY Compared to ECG 03/20/2025 00:47:37 Short OR interval now present T-wave abnormality now present Electronically Signed On 04-02-2025 15:38:28 CDT by Mario Daily M.D.
[2025-04-02] MEDS: HALOPERIDOL LACTATE 5 MG/ML VIAL IM (04:17)
[2025-04-02] MEDS: LORazepam INJ (*CRX) 2 MG/ML VIAL IM (04:17)
[2025-04-02] MEDS: SODIUM CHLORIDE 0.9% IV 2,000 ML 999 ML IV CONT (05:34)
[2025-04-02 05:38] LABS: Basophils Absolute Auto 0.1 K/mm3 (0.0-0.1); Basophils Percent Auto 0.3 % (0.2-1.2); Hematocrit 56.5 % (42.0-52.0); Hemoglobin 17.7 g/dL (14.0-18.0); Immature Granulocyte Absolute 0.19 K/mm3 (0.00-0.031); Immature Granulocyte Percent A 0.6 % (0-0.5); Lymphocytes Absolute Auto 1.49 K/mm3 (0.9-3.2); Lymphocytes Percent Auto 5.1 % (18.3-44.2); Mean Corpuscular HGB Conc 31.3 g/dl (32-36); Mean Corpuscular Hemoglobin 27.4 pg (26-34); Mean Corpuscular Volume 87.5 fl (80-100); Mean Platelet Volume 8.9 fl (7.4-10.4); Monocytes Absolute Auto 1.7 K/mm3 (0.1-0.6); Monocytes Percent Auto 5.8 % (2.6-8.5); Neutrophils Absolute Auto 25.9 K/mm3 (1.3-6.7); Neutrophils Percent Auto 88.2 % (45.5-73.1); Platelet Count Result 461 k/mm3 (150-375); Red Blood Count 6.46 M/mm3 (4.6-6.20); Red Cell Distribution Width 14.6 % (11.5-14.5); White Blood Count 29.4 K/mm3 (4.5-10.0)
--- NOTE | 2025-04-02 05:45 | PC.NURSE ---
this rn placed an external catheter on patient per [facility] edp dr. cabral
[2025-04-02 05:46] LABS: Fractional Inspired Oxygen 21 %
[2025-04-02 05:49] LABS: INR 1.1; Prothrombin Time 15.1 Seconds (11.1-14.7)
[2025-04-02 05:50] LABS: Lactic Acid Reflex 3.5 mmol/L (0.7-2.0); Partial Thromboplastin Time 33.8 Seconds (22.3-36.8)
[2025-04-02 05:54] LABS: PCO2 VBG 32.3 mmHg (42.0-48.0); PO2 VBG 43.1 mmHg (35.0-45.0); pH VBG 7.442 (7.300-7.400)
[2025-04-02 05:55] LABS: Device ROOM AIR; HCO3 VBG 21.5 mEq/l (24.0-30.0)
[2025-04-02 06:01] LABS: Troponin I 0.021 ng/mL (0.000-0.034)
--- NOTE | 2025-04-02 06:03 | ED.GENADULT ---
HPI - General Adult General Chief complaint: GI Bleed <Naeem Beach MD - Last Filed: 04/02/25 07:00> Stated complaint: N/V, GI BLEED <Naeem Beach MD - Last Filed: 04/02/25 07:00> Time Seen by Provider: 04/02/25 04:06 <Naeem Beach MD - Last Filed: 04/02/25 07:00> History of Present Illness HPI narrative: This is a 44-year-old nonverbal male who is well known to our emergency department for sent from the longterm for nausea and vomiting x4 days. Vomit has been dark and they described as coffee-ground. The patient himself can provide no meaningful information as he is nonverbal. <Naeem Beach MD - Last Filed: 04/02/25 07:00> Related Data Home medications: Home Medications Medication Instructions Recorded Confirmed Last Taken Type polyethylene glycol 3350 17 17 g feeding tube DAILY 01/09/24 04/02/25 03/19/25 07:15 History gram/dose oral powder (Miralax) sennosides 8.6 mg-docusate sodium 1 tablet PO Q12H 01/09/24 04/02/25 03/19/25 07:15 History 50 mg tablet (Senna Plus) promethazine 12.5 mg tablet 12.5 mg feeding tube DAILY PRN 09/28/24 04/02/25 Unknown History nausea and vomiting <Naeem Beach MD - Last Filed: 04/02/25 07:00> Allergies/adverse reactions: Allergies Allergy/AdvReac Type Severity Reaction Status Date / Time No Known Allergies Allergy Verified 03/19/25 17:19 <Naeem Beach MD - Last Filed: 04/02/25 07:00> [facility] Past Medical History Medical History: Medical History (Updated 04/02/25 @ 08:03 by Lety Hoang MD) Chronic indwelling Cardona catheter Cognitive developmental delay Autism <Naeem Beach MD - Last Filed: 04/02/25 07:00> Surgical History Surgical History: Surgical History (Updated 03/20/25 @ 01:57 by Nenita Burroughs DO) History of gastrostomy tube placement History of exploratory laparotomy (09/2022) Exploratory laparotomy with sigmoid colon resection and colostomy for ischemic bowel. Complicated by septic shock and respiratory failure requiring intubation <Naeem Beach MD - Last Filed: 04/02/25 07:00> Family History Family History: Family History Other Family history unknown <Naeem Beach MD - Last Filed: 04/02/25 07:00> Social History Social History: Social History (Updated 03/20/25 @ 01:58 by Nenita Burroughs DO) Social History: Patient lives in [place] at [facility] Surrogate medical decision maker: Man Swanson, father or Samia Hale, sister. Code status: Full code. Smoking status: Never smoker Second hand tobacco smoke exposure: No Alcohol intake: never Substance use: never Substance use type: does not use Additional living arrangements comments: Resident at [facility]. Spiritual care concerns: No <Naeem Beach MD - Last Filed: 04/02/25 07:00> Exam Narrative: APPEARANCE: No apparent distress. Head: atraumatic. EYES: EOMI, NOSE: Atraumatic NECK: Trachea midline RESPIRATORY: No increased rate of breathing CTAB CARDIOVASCULAR: Tachycardic ABDOMINAL: Nondistended, G-tube in place MUSCULOSKELETAl: Contractures in significant muscle wasting NEURO: Response to pain SKIN:: Warm, dry. Normal color <Naeem Beach MD - Last Filed: 04/02/25 07:00> Course Consultations Consultation #1: Dr. Ortega For intussusception patient need to go to another facility <Lety Hoang MD - Last Filed: 04/02/25 09:50> Date: 04/02/25 <Lety Hoang MD - Last Filed: 04/02/25 09:50> Consultation #2: DR RAM, SURGEON AT [facility] REPORT THAT SMALL-BOWEL INTUSSUSCEPTION IS INCIDENTAL FINDING, REPEATING CT SCAN LATER PROBABLY WILL SHOW IMPROVEMENT. PATIENT IS NOT A SURGICAL CANDIDATE FOR THAT. <Lety Hoang MD - Last Filed: 04/02/25 09:50> Date: 04/02/25 <Lety Hoang MD - Last Filed: 04/02/25 09:50> Consultation #3: DR CALLAHAN ACCEPTED PATIENT CONSULT <Lety Hoang MD - Last Filed: 04/02/25 09:50> Vital Signs Vital signs: Vital Signs Temperature 37.4 C 04/02/25 03:56 Pulse Rate 137 H 04/02/25 03:56 Respiratory Rate 16 04/02/25 03:56 Blood Pressure 122/87 04/02/25 03:56 Pulse Oximetry 96 04/02/25 03:56 Oxygen Delivery Room Air 04/02/25 03:56 Temperature 37.1 C 04/02/25 07:10 Pulse Rate 127 H 04/02/25 07:10 Respiratory Rate 32 H 04/02/25 07:10 Blood Pressure 122/71 04/02/25 07:10 Pulse Oximetry 94 04/02/25 07:10 Oxygen Delivery Room Air 04/02/25 03:56 <Naeem Beach MD - Last Filed: 04/02/25 07:00> Vital Signs Temperature 37.4 C 04/02/25 03:56 Pulse Rate 137 H 04/02/25 03:56 Respiratory Rate 16 04/02/25 03:56 Blood Pressure 122/87 04/02/25 03:56 Pulse Oximetry 96 04/02/25 03:56 Oxygen Delivery Room Air 04/02/25 03:56 Temperature 37.1 C 04/02/25 07:10 Pulse Rate 127 H 04/02/25 07:10 Respiratory Rate 32 H 04/02/25 07:10 Blood Pressure 122/71 04/02/25 07:10 Pulse Oximetry 94 04/02/25 07:10 Oxygen Delivery Room Air 04/02/25 03:56 <eLty Hoang MD - Last Filed: 04/02/25 09:50> Medical Decision Making MDM Narrative Medical decision making narrative: -Course: Who 44-year-old nonverbal longterm patient presenting for 4 days of nausea and vomiting. On arrival patient is severely tachycardic. Patient given 2 L normal saline. Full sepsis workup obtained. Workup delayed due to difficult IV access and eventually an IV was placed by MD under ultrasound guidance. White count is elevated at 29. Patient be started on empiric antibiotics including meropenem Flagyl and vancomycin while awaiting completion of his workup. Patient signed out to the oncoming physician pending CT chest abdomen pelvis. Patient will require admission. -DDX includes but is not limited to: GI bleed, sepsis, dehydration <Naeem Beach MD - Last Filed: 04/02/25 07:00> Vital Signs Vital Signs: Vital Signs Temperature 37.4 C 04/02/25 03:56 Pulse Rate 137 H 04/02/25 03:56 Respiratory Rate 16 04/02/25 03:56 Blood Pressure 122/87 04/02/25 03:56 Pulse Oximetry 96 04/02/25 03:56 Oxygen Delivery Room Air 04/02/25 03:56 Temperature 37.1 C 04/02/25 07:10 Pulse Rate 127 H 04/02/25 07:10 Respiratory Rate 32 H 04/02/25 07:10 Blood Pressure 122/71 04/02/25 07:10 Pulse Oximetry 94 04/02/25 07:10 Oxygen Delivery Room Air 04/02/25 03:56 <Naeem Beach MD - Last Filed: 04/02/25 07:00> Vital Signs Temperature 37.4 C 04/02/25 03:56 Pulse Rate 137 H 04/02/25 03:56 Respiratory Rate 16 04/02/25 03:56 Blood Pressure 122/87 04/02/25 03:56 Pulse Oximetry 96 04/02/25 03:56 Oxygen Delivery Room Air 04/02/25 03:56 Temperature 37.1 C 04/02/25 07:10 Pulse Rate 127 H 04/02/25 07:10 Respiratory Rate 32 H 04/02/25 07:10 Blood Pressure 122/71 04/02/25 07:10 Pulse Oximetry 94 04/02/25 07:10 Oxygen Delivery Room Air 04/02/25 03:56 <Lety Hoang MD - Last Filed: 04/02/25 09:50> Lab Data Result diagrams: 04/02/25 05:30 04/02/25 05:57 <Naeem Becah MD - Last Filed: 04/02/25 07:00> Labs: Lab Results 04/02/25 04/02/25 04/02/25 Range/Units 05:30 05:33 05:57 WBC 29.4 H (4.5-10.0) K/mm3 RBC 6.46 H (4.6-6.20) M/mm3 Hgb 17.7 (14.0-18.0) g/dL Hct 56.5 H (42.0-52.0) % MCV 87.5 (80-100) fl MCH 27.4 (26-34) pg MCHC 31.3 L (32-36) g/dl RDW 14.6 H (11.5-14.5) % Plt Count 461 H (150-375) k/mm3 MPV 8.9 (7.4-10.4) fl Immature Gran % (Auto) 0.6 H (0-0.5) % Neut % (Auto) 88.2 H (45.5-73.1) % Lymph % (Auto) 5.1 L (18.3-44.2) % [facility] % (Auto) 5.8 (2.6-8.5) % Eos % (Auto) 0.0 (0-4.4) % Baso % (Auto) 0.3 (0.2-1.2) % Lymph # (Auto) 1.49 (0.9-3.2) K/mm3 [facility] # (Auto) 1.7 H (0.1-0.6) K/mm3 Eos # (Auto) 0.0 (0-0.3) K/mm3 Baso # (Auto) 0.1 (0.0-0.1) K/mm3 Abs Immat Gran (auto) 0.19 H (0.00-0.031) K/mm3 Absolute Neuts (auto) 25.9 H (1.3-6.7) K/mm3 Absolute Nucleated RBC 0.000 (0.0-0.012) K/mm3 Nucleated RBC % 0.0 (0.0-0.2) % PT 15.1 H (11.1-14.7) Seconds INR 1.1 APTT 33.8 (22.3-36.8) Seconds Sodium 144 (137-145) mmol/L Potassium 3.8 (3.4-5.0) mmol/L Chloride 95 L (98-107) mmol/L Carbon Dioxide 21 L (22-30) mmol/L Anion Gap 28 H (4-12) mmol/L BUN 23 H (9-20) mg/dL Creatinine 1.59 H (0.7-1.3) mg/dL Estim Creat Clear Calc Not Reportable Estimated GFR 47 L (59 - ) Glucose 140 H (65-110) mg/dL Lactic Acid 3.5 H (0.7-2.0) mmol/L Calcium 9.5 (8.4-10.2) mg/dL Phosphorus 4.8 H (2.5-4.5) mg/dL Magnesium 2.2 (1.6-2.3) mg/dL Total Bilirubin 1.1 (0.2-1.3) mg/dL AST 37 (17-59) U/L ALT 36 (6-50) U/L Alkaline Phosphatase 112 (38-126) U/L Troponin I 0.021 (0.000-0.034) ng/mL Total Protein 10.0 H (6.3-8.2) g/dL Albumin 5.2 H (3.5-5.1) g/dL Lipase 96 (23-300) U/L TSH (Reflex) 4.930 H (0.465-4.68) uIU/mL Free T4 2.17 (0.78-2.19) ng/dL Total T3 1.06 (0.97-1.69) NG/ML Influenza A (RT-PCR) Negative (Negative) Influenza B (RT-PCR) Negative (Negative) RSV (RT-PCR) Negative (Negative) SARS-CoV-2 RNA (RT-PCR) Negative (Negative) Blood Type Cancelled Antibody Screen Cancelled 04/02/25 04/02/25 Range/Units 07:24 08:44 WBC (4.5-10.0) K/mm3 RBC (4.6-6.20) M/mm3 Hgb (14.0-18.0) g/dL Hct (42.0-52.0) % MCV (80-100) fl MCH (26-34) pg MCHC (32-36) g/dl RDW (11.5-14.5) % Plt Count (150-375) k/mm3 MPV (7.4-10.4) fl Immature Gran % (Auto) (0-0.5) % Neut % (Auto) (45.5-73.1) % Lymph % (Auto) (18.3-44.2) % [facility] % (Auto) (2.6-8.5) % Eos % (Auto) (0-4.4) % Baso % (Auto) (0.2-1.2) % Lymph # (Auto) (0.9-3.2) K/mm3 [facility] # (Auto) (0.1-0.6) K/mm3 Eos # (Auto) (0-0.3) K/mm3 Baso # (Auto) (0.0-0.1) K/mm3 Abs Immat Gran (auto) (0.00-0.031) K/mm3 Absolute Neuts (auto) (1.3-6.7) K/mm3 Absolute Nucleated RBC (0.0-0.012) K/mm3 Nucleated RBC % (0.0-0.2) % PT (11.1-14.7) Seconds INR APTT (22.3-36.8) Seconds Sodium (137-145) mmol/L Potassium (3.4-5.0) mmol/L Chloride (98-107) mmol/L Carbon Dioxide (22-30) mmol/L Anion Gap (4-12) mmol/L BUN (9-20) mg/dL Creatinine (0.7-1.3) mg/dL Estim Creat Clear Calc Estimated GFR (59 - ) Glucose (65-110) mg/dL Lactic Acid 1.5 (0.7-2.0) mmol/L Calcium (8.4-10.2) mg/dL Phosphorus (2.5-4.5) mg/dL Magnesium (1.6-2.3) mg/dL Total Bilirubin (0.2-1.3) mg/dL AST (17-59) U/L ALT (6-50) U/L Alkaline Phosphatase (38-126) U/L Troponin I 0.013 D (0.000-0.034) ng/mL Total Protein (6.3-8.2) g/dL Albumin (3.5-5.1) g/dL Lipase (23-300) U/L TSH (Reflex) (0.465-4.68) uIU/mL Free T4 (0.78-2.19) ng/dL Total T3 (0.97-1.69) NG/ML Influenza A (RT-PCR) (Negative) Influenza B (RT-PCR) (Negative) RSV (RT-PCR) (Negative) SARS-CoV-2 RNA (RT-PCR) (Negative) Blood Type O Negative Antibody Screen Negative <Naeem Beach MD - Last Filed: 04/02/25 07:00> Lab Results 04/02/25 04/02/25 04/02/25 Range/Units 05:30 05:33 05:57 WBC 29.4 H (4.5-10.0) K/mm3 RBC 6.46 H (4.6-6.20) M/mm3 Hgb 17.7 (14.0-18.0) g/dL Hct 56.5 H (42.0-52.0) % MCV 87.5 (80-100) fl MCH 27.4 (26-34) pg MCHC 31.3 L (32-36) g/dl RDW 14.6 H (11.5-14.5) % Plt Count 461 H (150-375) k/mm3 MPV 8.9 (7.4-10.4) fl Immature Gran % (Auto) 0.6 H (0-0.5) % Neut % (Auto) 88.2 H (45.5-73.1) % Lymph % (Auto) 5.1 L (18.3-44.2) % [facility] % (Auto) 5.8 (2.6-8.5) % Eos % (Auto) 0.0 (0-4.4) % Baso % (Auto) 0.3 (0.2-1.2) % Lymph # (Auto) 1.49 (0.9-3.2) K/mm3 [facility] # (Auto) 1.7 H (0.1-0.6) K/mm3 Eos # (Auto) 0.0 (0-0.3) K/mm3 Baso # (Auto) 0.1 (0.0-0.1) K/mm3 Abs Immat Gran (auto) 0.19 H (0.00-0.031) K/mm3 Absolute Neuts (auto) 25.9 H (1.3-6.7) K/mm3 Absolute Nucleated RBC 0.000 (0.0-0.012) K/mm3 Nucleated RBC % 0.0 (0.0-0.2) % PT 15.1 H (11.1-14.7) Seconds INR 1.1 APTT 33.8 (22.3-36.8) Seconds Sodium 144 (137-145) mmol/L Potassium 3.8 (3.4-5.0) mmol/L Chloride 95 L (98-107) mmol/L Carbon Dioxide 21 L (22-30) mmol/L Anion Gap 28 H (4-12) mmol/L BUN 23 H (9-20) mg/dL Creatinine 1.59 H (0.7-1.3) mg/dL Estim Creat Clear Calc Not Reportable Estimated GFR 47 L (59 - ) Glucose 140 H (65-110) mg/dL Lactic Acid 3.5 H (0.7-2.0) mmol/L Calcium 9.5 (8.4-10.2) mg/dL Phosphorus 4.8 H (2.5-4.5) mg/dL Magnesium 2.2 (1.6-2.3) mg/dL Total Bilirubin 1.1 (0.2-1.3) mg/dL AST 37 (17-59) U/L ALT 36 (6-50) U/L Alkaline Phosphatase 112 (38-126) U/L Troponin I 0.021 (0.000-0.034) ng/mL Total Protein 10.0 H (6.3-8.2) g/dL Albumin 5.2 H (3.5-5.1) g/dL Lipase 96 (23-300) U/L TSH (Reflex) 4.930 H (0.465-4.68) uIU/mL Free T4 2.17 (0.78-2.19) ng/dL Total T3 1.06 (0.97-1.69) NG/ML Influenza A (RT-PCR) Negative (Negative) Influenza B (RT-PCR) Negative (Negative) RSV (RT-PCR) Negative (Negative) SARS-CoV-2 RNA (RT-PCR) Negative (Negative) Blood Type Cancelled Antibody Screen Cancelled 04/02/25 04/02/25 Range/Units 07:24 08:44 WBC (4.5-10.0) K/mm3 RBC (4.6-6.20) M/mm3 Hgb (14.0-18.0) g/dL Hct (42.0-52.0) % MCV (80-100) fl MCH (26-34) pg MCHC (32-36) g/dl RDW (11.5-14.5) % Plt Count (150-375) k/mm3 MPV (7.4-10.4) fl Immature Gran % (Auto) (0-0.5) % Neut % (Auto) (45.5-73.1) % Lymph % (Auto) (18.3-44.2) % [facility] % (Auto) (2.6-8.5) % Eos % (Auto) (0-4.4) % Baso % (Auto) (0.2-1.2) % Lymph # (Auto) (0.9-3.2) K/mm3 [facility] # (Auto) (0.1-0.6) K/mm3 Eos # (Auto) (0-0.3) K/mm3 Baso # (Auto) (0.0-0.1) K/mm3 Abs Immat Gran (auto) (0.00-0.031) K/mm3 Absolute Neuts (auto) (1.3-6.7) K/mm3 Absolute Nucleated RBC (0.0-0.012) K/mm3 Nucleated RBC % (0.0-0.2) % PT (11.1-14.7) Seconds INR APTT (22.3-36.8) Seconds Sodium (137-145) mmol/L Potassium (3.4-5.0) mmol/L Chloride (98-107) mmol/L Carbon Dioxide (22-30) mmol/L Anion Gap (4-12) mmol/L BUN (9-20) mg/dL Creatinine (0.7-1.3) mg/dL Estim Creat Clear Calc Estimated GFR (59 - ) Glucose (65-110) mg/dL Lactic Acid 1.5 (0.7-2.0) mmol/L Calcium (8.4-10.2) mg/dL Phosphorus (2.5-4.5) mg/dL Magnesium (1.6-2.3) mg/dL Total Bilirubin (0.2-1.3) mg/dL AST (17-59) U/L ALT (6-50) U/L Alkaline Phosphatase (38-126) U/L Troponin I 0.013 D (0.000-0.034) ng/mL Total Protein (6.3-8.2) g/dL Albumin (3.5-5.1) g/dL Lipase (23-300) U/L TSH (Reflex) (0.465-4.68) uIU/mL Free T4 (0.78-2.19) ng/dL Total T3 (0.97-1.69) NG/ML Influenza A (RT-PCR) (Negative) Influenza B (RT-PCR) (Negative) RSV (RT-PCR) (Negative) SARS-CoV-2 RNA (RT-PCR) (Negative) Blood Type O Negative Antibody Screen Negative <Lety Hoang MD - Last Filed: 04/02/25 09:50> ABG Data ABG results: 04/02/25 05:30 VBG pH 7.442 H* VBG pCO2 32.3 L VBG pO2 43.1 VBG HCO3 21.5 L O2 Delivery Device Room air FiO2 21 <Naeem Beach MD - Last Filed: 04/02/25 07:00> 04/02/25 05:30 VBG pH 7.442 H* VBG pCO2 32.3 L VBG pO2 43.1 VBG HCO3 21.5 L O2 Delivery Device Room air FiO2 21 <Lety Hoang MD - Last Filed: 04/02/25 09:50> Discharge Plan Discharge Clinical Impression: Sepsis, Urinary tract infection associated with catheterization of urinary tract, RACQUEL (acute kidney injury) <Naeem Beach MD - Last Filed: 04/02/25 07:00> Patient Disposition: Still a Patient <Naeem Beach MD - Last Filed: 04/02/25 07:00> Condition: Stable <Naeem Beach MD - Last Filed: 04/02/25 07:00> Additional Instructions: ADMIT TO HOSPITALIST <Naeem Beach MD - Last Filed: 04/02/25 07:00> Patient Language: Vietnamese <Naeem Beach MD - Last Filed: 04/02/25 07:00> Prescriptions: No Action famotidine 20 mg Tablet 20 mg feeding tube Q12HR 30 Days Qty: 60 0RF ondansetron 4 mg tablet,disintegrating 4 mg PO Q8H PRN (Reason: nausea and vomiting) Qty: 14 0RF sennosides-docusate sodium [Senna Plus] 8.6-50 mg Tablet 1 tablet PO Q12H polyethylene glycol 3350 [Miralax] 17 gram/dose Powder 17 g feeding tube DAILY promethazine 12.5 mg tablet 12.5 mg feeding tube DAILY PRN (Reason: nausea and vomiting) tamsulosin 0.4 mg Capsule 0.4 mg PO QHS Qty: 30 0RF levofloxacin 750 mg tablet 750 mg PO DAILY 4 Days Qty: 4 0RF <Naeem Beach MD - Last Filed: 04/02/25 07:00> Follow-up/Referrals: Kal,MD Thomas [Primary Care Provider] - <Naeem Beach MD - Last Filed: 04/02/25 07:00> Restraint Face to Face Eval. Evaluation Findings Date/Time of evaluation:: 04/02/25 06:05 <Naeem Beach MD - Last Filed: 04/02/25 07:00> Pt's immediate situation:: Scratching, spitting at staff <Naeem Beach MD - Last Filed: 04/02/25 07:00> Pt's reaction to intervention:: Patient given chemical sedation to facilitate IV access. <Naeem Beach MD - Last Filed: 04/02/25 07:00> Pt's med/behavioral condition:: cognitive developmental delay <Naeem Beach MD - Last Filed: 04/02/25 07:00> Restraint or Seclusion Need Need to continue or terminate:: After workup was obtained no further need for sedation. <Naeem Beach MD - Last Filed: 04/02/25 07:00>
[2025-04-02 06:13] LABS: Influenza A QL RT-PCR Negative (Negative); Influenza B QL RT-PCR Negative (Negative); RSV RNA, RT-PCR Negative (Negative); SARS-CoV-2 RNA PCR Negative (Negative)
[2025-04-02 06:35] LABS: Alanine Aminotransferase 36 U/L (6-50); Albumin Level 5.2 g/dL (3.5-5.1); Alkaline Phosphatase 112 U/L (38-126); Anion Gap 28 mmol/L (4-12); Aspartate Amino Transferase 37 U/L (17-59); Bilirubin,Total 1.1 mg/dL (0.2-1.3); Blood Urea Nitrogen 23 mg/dL (9-20); Calcium 9.5 mg/dL (8.4-10.2); Carbon Dioxide 21 mmol/L (22-30); Chloride 95 mmol/L (98-107); Estimated Glomerular Filt Rate 47; Glucose 140 mg/dL (65-110); Lipase 96 U/L (23-300); Magnesium 2.2 mg/dL (1.6-2.3); Phosphorus 4.8 mg/dL (2.5-4.5); Potassium 3.8 mmol/L (3.4-5.0); Sodium 144 mmol/L (137-145)
--- NOTE | 2025-04-02 07:07 | PC.NURSE ---
per [facility]. cabral patient to have one set of cultures drawn and urine collected prior to abx initation.
[2025-04-02 07:10] LABS: Free T4 Free Thyroxine Reflex 2.17 ng/dL (0.78-2.19)
[2025-04-02 07:35] LABS: Reflex Lactic Acid Yes or No Add Lactic
--- NOTE | 2025-04-02 07:40 | PC.NURSE ---
Pt has condom catheter on from nightshift, no urine noted in bag at this time.
[2025-04-02 07:55] LABS: Total Triiodothyronine (T3) 1.06 NG/ML (0.97-1.69)
--- NOTE | 2025-04-02 08:32 | ECG_ITS ---
Test Date: 2025-04-02 08:39:23 Measurements Intervals [place] Rate: 122 P: 41 CO: 129 QRS: 48 QRSD: 70 T: 70 QT: 300 QTc: 429 Interpretive Statements SINUS TACHYCARDIA NONSPECIFIC T-WAVE ABNORMALITY ABNORMAL RHYTHM ECG Compared to ECG 04/02/2025 04:09:21 Short CO interval no longer present T-wave abnormality still present Electronically Signed On 04-02-2025 15:36:50 CDT by Mario Daily M.D.
[2025-04-02 09:09] LABS: Lactic Acid 1.5 mmol/L (0.7-2.0)
[2025-04-02 09:23] LABS: Troponin I 0.013 ng/mL (0.000-0.034)
[2025-04-02] MEDS: MEROPENEM 1 GM/NS 100 ML 1 GM/100 ML BAG IVPB ×2 (10:16→22:51)
--- NOTE | 2025-04-02 11:01 | PC.NURSE ---
[address]P [address] Hoang to start antibiotics despite not having UA.
[2025-04-02] MEDS: metroNIDAZOLE 500 MG/ISO 100ML 500 MG/100 ML BAG 100 MG IVPB ×2 (11:18→20:56)
--- NOTE | 2025-04-02 11:21 | PC.NURSE ---
Pt self removed condom catheter. Pt placed in clean, dry linens, depend changed.
[2025-04-02 12:13] LABS: Hematocrit 46.2 % (42.0-52.0); Hemoglobin 14.7 g/dL (14.0-18.0)
[2025-04-02] MEDS: VANCOMYCIN 1,000 MG/NS 250 ML 1,000 MG/250 ML BAG 250 MG IVPB (12:17)
--- NOTE | 2025-04-02 12:29 | P.CONGS_ITS ---
Assessment and Plan Assessment and plan (1) Intussusception: Code(s): K56.1 - Intussusception Status: Acute Assessment and Plan: likely incidental finding, no obstruction on CT or exam, continue serial exam (2) UTI (urinary tract infection): Qualifiers: Urinary tract infection type: acute cystitis Hematuria presence: with hematuria Qualified Code(s): N30.01 - Acute cystitis with hematuria Code(s): N39.0 - Urinary tract infection, site not specified Status: Acute Assessment and Plan: broad-spectrum antibiotics, management per primary team (3) Sepsis: Qualifiers: Sepsis type: sepsis due to unspecified organism Sepsis acute organ dysfunction status: without acute organ dysfunction Qualified Code(s): A41.9 - Sepsis, unspecified organism Code(s): A41.9 - Sepsis, unspecified organism Status: Acute Assessment and Plan: see above, await culture results History of Present Illness Consult details Consult date: 04/02/25 Reason for consult: other (intussusception) Requesting physician: Lul Thomason MD Narrative: The patient is a 44-year-old male presenting to the emergency department from [facility] for UTI, sepsis. The patient has mental disability and is nonverbal. The patient is known to our service from previous emergent colectomy with end colostomy. According to the notes, the patient has been having coffee-ground emesis. Workup in the emergency department, including imaging, is significant for sepsis secondary to UTI. The patient is noted to have an intussusception on CT that is likely incidental. Review of Systems 2 Review of Systems: ROS unobtainable: Yes unobtainable due to mental status PMFSH Past Medical History Medical History Chronic indwelling Cardona catheter Cognitive developmental delay Autism Surgical History Surgical History History of gastrostomy tube placement History of exploratory laparotomy (09/2022) Exploratory laparotomy with sigmoid colon resection and colostomy for ischemic bowel. Complicated by septic shock and respiratory failure requiring intubation Family History Family History Other Family history unknown Social History Social History Social History: Patient lives in [place] at [facility] Surrogate medical decision maker: Man Swanson, father or Samia Hale, sister. Code status: Full code. Smoking status: Never smoker Second hand tobacco smoke exposure: No Alcohol intake: never Substance use: never Substance use type: does not use Additional living arrangements comments: Resident at [facility]. Spiritual care concerns: No Meds Home Medications and Allergies Home Medications Medication Instructions Recorded Confirmed Type famotidine 20 mg tablet 20 mg feeding tube Q12HR 30 days 11/08/22 04/02/25 Rx #60 tabs polyethylene glycol 3350 17 17 g feeding tube DAILY 01/09/24 04/02/25 History gram/dose oral powder (Miralax) sennosides 8.6 mg-docusate sodium 1 tablet PO Q12H 01/09/24 04/02/25 History 50 mg tablet (Senna Plus) promethazine 12.5 mg tablet 12.5 mg feeding tube DAILY PRN 09/28/24 04/02/25 History nausea and vomiting levofloxacin 750 mg tablet 750 mg PO DAILY 4 days #4 tabs 03/24/25 04/02/25 Rx tamsulosin 0.4 mg capsule 0.4 mg PO QHS #30 caps 03/24/25 04/02/25 Rx ondansetron 4 mg disintegrating 4 mg PO Q8H PRN nausea and 03/28/25 04/02/25 Rx tablet vomiting #14 tabs Allergies Allergy/AdvReac Type Severity Reaction Status Date / Time No Known Allergies Allergy Verified 03/19/25 17:19 Vital Signs Vital Signs - 24 hr 04/02/25 03:56 04/02/25 04:18 04/02/25 04:27 Temperature 37.4 C 37.2 C 36.8 C Pulse Rate 137 H 156 H 135 H Respiratory Rate 16 34 H 18 Blood Pressure 122/87 130/88 116/87 Pulse Oximetry 96 95 95 Oxygen Delivery Room Air 04/02/25 04:28 04/02/25 04:48 04/02/25 04:50 Temperature 37.0 C Pulse Rate 144 H 144 H 155 H Respiratory Rate 23 H 16 19 Blood Pressure 116/87 117/83 117/83 Pulse Oximetry 98 99 Oxygen Delivery 04/02/25 04:55 04/02/25 05:01 04/02/25 05:15 Temperature 37.0 C 37.0 C Pulse Rate 141 H 152 H 161 H Respiratory Rate 22 H 15 27 H Blood Pressure 103/69 103/69 106/82 Pulse Oximetry 99 99 98 Oxygen Delivery 04/02/25 05:16 04/02/25 05:31 04/02/25 05:46 Temperature Pulse Rate 164 H 157 H 142 H Respiratory Rate 20 18 20 Blood Pressure 106/82 95/83 L 103/80 Pulse Oximetry 99 96 Oxygen Delivery 04/02/25 06:01 04/02/25 06:16 04/02/25 06:22 Temperature 37.0 C Pulse Rate 137 H 137 H 141 H Respiratory Rate 20 21 H 19 Blood Pressure 117/75 103/70 103/70 Pulse Oximetry 96 96 100 Oxygen Delivery 04/02/25 06:31 04/02/25 06:46 04/02/25 07:01 Temperature Pulse Rate 132 H 131 H 133 H Respiratory Rate 15 18 22 H Blood Pressure 124/77 100/75 104/69 Pulse Oximetry 96 100 Oxygen Delivery 04/02/25 07:10 04/02/25 07:25 04/02/25 07:31 Temperature 37.1 C Pulse Rate 127 H 127 H 127 H Respiratory Rate 32 H 15 17 Blood Pressure 122/71 124/71 109/69 Pulse Oximetry 94 98 98 Oxygen Delivery 04/02/25 07:46 04/02/25 08:01 04/02/25 08:31 Temperature Pulse Rate 121 H 131 H 130 H Respiratory Rate 15 17 17 Blood Pressure 119/82 105/63 117/86 Pulse Oximetry 97 98 98 Oxygen Delivery 04/02/25 09:01 04/02/25 09:16 04/02/25 09:31 Temperature Pulse Rate 130 H 132 H 132 H Respiratory Rate 17 18 17 Blood Pressure 118/82 114/78 116/72 Pulse Oximetry 96 95 96 Oxygen Delivery 04/02/25 09:46 04/02/25 10:01 04/02/25 10:16 Temperature Pulse Rate 122 H 137 H 126 H Respiratory Rate 18 20 17 Blood Pressure 104/75 108/69 122/79 Pulse Oximetry 95 94 95 Oxygen Delivery 04/02/25 10:31 04/02/25 10:46 Temperature Pulse Rate 135 H 129 H Respiratory Rate 21 H 17 Blood Pressure 104/85 124/78 Pulse Oximetry 98 97 Oxygen Delivery Exam 2 Const: General: ill appearing and cachectic HENMT: Head: normal to inspection, normocephalic and atraumatic Eyes: General: appearance normal, both eyes and all related structures Neck: Neck: normal visual inspection and no lymphadenopathy Resp: Auscultation: clear to auscultation bilaterally Cardio: Rate: regular rate Rhythm: regular rhythm GI: GI Palp: No abdominal tenderness and Yes Soft to palpation Other: G tube C/D/I ostomy - +fxn Urinary Catheter: Urinary Catheter: urine cloudy Skin: General skin exam: normal color and no rashes or lesions noted Neuro: Other: Nonverbal Extrem: General: normal to inspection Results Labs 04/02/25 12:06 04/02/25 05:57 Labs: Abnormal lab results 04/02/25 04/02/25 Range/Units 05:30 05:57 WBC 29.4 H (4.5-10.0) K/mm3 RBC 6.46 H (4.6-6.20) M/mm3 Hct 56.5 H (42.0-52.0) % MCHC 31.3 L (32-36) g/dl RDW 14.6 H (11.5-14.5) % Plt Count 461 H (150-375) k/mm3 Immature Gran % (Auto) 0.6 H (0-0.5) % Neut % (Auto) 88.2 H (45.5-73.1) % Lymph % (Auto) 5.1 L (18.3-44.2) % [place] # (Auto) 1.7 H (0.1-0.6) K/mm3 Abs Immat Gran (auto) 0.19 H (0.00-0.031) K/mm3 Absolute Neuts (auto) 25.9 H (1.3-6.7) K/mm3 PT 15.1 H (11.1-14.7) Seconds VBG pH 7.442 H* (7.300-7.400) VBG pCO2 32.3 L (42.0-48.0) mmHg VBG HCO3 21.5 L (24.0-30.0) mEq/l Chloride 95 L (98-107) mmol/L Carbon Dioxide 21 L (22-30) mmol/L Anion Gap 28 H (4-12) mmol/L BUN 23 H (9-20) mg/dL Creatinine 1.59 H (0.7-1.3) mg/dL Estimated GFR 47 L (59 - ) Glucose 140 H (65-110) mg/dL Lactic Acid 3.5 H (0.7-2.0) mmol/L Phosphorus 4.8 H (2.5-4.5) mg/dL Total Protein 10.0 H (6.3-8.2) g/dL Albumin 5.2 H (3.5-5.1) g/dL TSH (Reflex) 4.930 H (0.465-4.68) uIU/mL Diabetes panel 04/02/25 Range/Units 05:57 Sodium 144 (137-145) mmol/L Potassium 3.8 (3.4-5.0) mmol/L Chloride 95 L (98-107) mmol/L Carbon Dioxide 21 L (22-30) mmol/L BUN 23 H (9-20) mg/dL Creatinine 1.59 H (0.7-1.3) mg/dL Glucose 140 H (65-110) mg/dL Calcium 9.5 (8.4-10.2) mg/dL AST 37 (17-59) U/L ALT 36 (6-50) U/L Alkaline Phosphatase 112 (38-126) U/L Total Protein 10.0 H (6.3-8.2) g/dL Albumin 5.2 H (3.5-5.1) g/dL Calcium panel 04/02/25 Range/Units 05:57 Calcium 9.5 (8.4-10.2) mg/dL Phosphorus 4.8 H (2.5-4.5) mg/dL Albumin 5.2 H (3.5-5.1) g/dL Pituitary panel 04/02/25 04/02/25 Range/Units 05:30 05:57 Sodium 144 (137-145) mmol/L Potassium 3.8 (3.4-5.0) mmol/L Chloride 95 L (98-107) mmol/L Carbon Dioxide 21 L (22-30) mmol/L BUN 23 H (9-20) mg/dL Creatinine 1.59 H (0.7-1.3) mg/dL Glucose 140 H (65-110) mg/dL Calcium 9.5 (8.4-10.2) mg/dL Total T3 1.06 (0.97-1.69) NG/ML Adrenal panel 04/02/25 Range/Units 05:57 Sodium 144 (137-145) mmol/L Potassium 3.8 (3.4-5.0) mmol/L Chloride 95 L (98-107) mmol/L Carbon Dioxide 21 L (22-30) mmol/L BUN 23 H (9-20) mg/dL Creatinine 1.59 H (0.7-1.3) mg/dL Glucose 140 H (65-110) mg/dL Calcium 9.5 (8.4-10.2) mg/dL Total Bilirubin 1.1 (0.2-1.3) mg/dL AST 37 (17-59) U/L ALT 36 (6-50) U/L Alkaline Phosphatase 112 (38-126) U/L Total Protein 10.0 H (6.3-8.2) g/dL Albumin 5.2 H (3.5-5.1) g/dL All other labs normal. Imaging Abdomen CT scan report/results: report reviewed and image reviewed
--- NOTE | 2025-04-02 14:39 | P.HP_ITS ---
H&P: HPI History of Present Illness Date/Time: 04/02/25 14:39 Chief Complaint: Hematemesis and sepsis Narrative: 44-year-old male with a past medical history of autism with chronic nonverbal state, 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 Patient has mental disability and nonverbal. Patient had a previous emergent colectomy with end colostomy. Pertinent ED labs: WBC 29.4, hemoglobin dropped from 17.7-14.7, hematocrit dropped from 56.5-46.2, platelet 461, sodium 144, potassium 3.8, anion gap 28, creatinine 1.5, glucose 140, lactic acid decreased from 3.5-1.5, TSH 4.9 Chest/abdomen/pelvis CT :shows stable appearance of several bullous emphysema with chronic atelectasis/scarring at the bilateral lower lung. Proximal jejunal small bowel intussusception along a percutaneous gastrojejunostomy tube. Small sliding type hiatal hernia and diffuse mild wall thickening along the esophagus suggestive of reflux esophagitis related to reported nausea and vomiting. UA: Positive for nitrates and leukocyte esterase, WBC 10-15 Patient is admitted in the setting of ongoing hematemesis and sepsis. In regards to hematemesis patient heart rate has been increased in 120 is possibly due to sinus tachy from ongoing bleeding. Patient hemoglobin has been dropped from 17.7-14.7. Repeat H&H at 6:00 p.m . I discussed with Dr. Ortgea who reported he is unaware of hematemesis when he was called from ED for Intussusception. He advised to transfer the patient to tertiary care but ED physician who called surgery after that and surgeon accepted the patient and reported its an incidental finding. In regards to sepsis patient lactic acid has been decreased from 3.5-1.5. Patient is currently on NSS at 100 mL/hr. Echocardiogram has been ordered. Patient currently on broad-spectrum antibiotic meropenem, metronidazole, and vancomycin. Nasal MRSA is positive. In regards to tube feed , will hold the tube and start him on D5W with accuchecks. Discuss with whether safe to start feeding but he wants to wait until he evaluate the patient tomorrow. Review of Systems Review of Systems: ROS unobtainable: Yes unobtainable due to mental status [facility] Past Medical History Medical History Chronic indwelling Cardona catheter Cognitive developmental delay Autism Surgical History Surgical History History of gastrostomy tube placement History of exploratory laparotomy (09/2022) Exploratory laparotomy with sigmoid colon resection and colostomy for ischemic bowel. Complicated by septic shock and respiratory failure requiring intubation Family History Family History Other Family history unknown Social History Social History Social History: Patient lives in [facility] Surrogate medical decision maker: Man Swanson, father or Samia Hale, sister. Code status: Full code. Smoking status: Never smoker Second hand tobacco smoke exposure: No Alcohol intake: never Substance use: never Substance use type: does not use Additional living arrangements comments: Resident at [facility]. Spiritual care concerns: No Meds Home Medications and Allergies Home Medications Medication Instructions Recorded Confirmed Type famotidine 20 mg tablet 20 mg feeding tube Q12HR 30 days 11/08/22 04/02/25 Rx #60 tabs polyethylene glycol 3350 17 17 g feeding tube DAILY 01/09/24 04/02/25 History gram/dose oral powder (Miralax) sennosides 8.6 mg-docusate sodium 1 tablet PO Q12H 01/09/24 04/02/25 History 50 mg tablet (Senna Plus) promethazine 12.5 mg tablet 12.5 mg feeding tube DAILY PRN 09/28/24 04/02/25 History nausea and vomiting levofloxacin 750 mg tablet 750 mg PO DAILY 4 days #4 tabs 03/24/25 04/02/25 Rx tamsulosin 0.4 mg capsule 0.4 mg PO QHS #30 caps 03/24/25 04/02/25 Rx ondansetron 4 mg disintegrating 4 mg PO Q8H PRN nausea and 03/28/25 04/02/25 Rx tablet vomiting #14 tabs Allergies Allergy/AdvReac Type Severity Reaction Status Date / Time No Known Allergies Allergy Verified 03/19/25 17:19 Vital Signs Vital Signs - 24 hr 04/02/25 03:56 04/02/25 04:18 04/02/25 04:27 Temperature 99.3 F 99.0 F 98.2 F Pulse Rate 137 H 156 H 135 H Respiratory Rate 16 34 H 18 Blood Pressure 122/87 130/88 116/87 Pulse Oximetry 96 95 95 Oxygen Delivery Room Air 04/02/25 04:28 04/02/25 04:48 04/02/25 04:50 Temperature 98.6 F Pulse Rate 144 H 144 H 155 H Respiratory Rate 23 H 16 19 Blood Pressure 116/87 117/83 117/83 Pulse Oximetry 98 99 Oxygen Delivery 04/02/25 04:55 04/02/25 05:01 04/02/25 05:15 Temperature 98.6 F 98.6 F Pulse Rate 141 H 152 H 161 H Respiratory Rate 22 H 15 27 H Blood Pressure 103/69 103/69 106/82 Pulse Oximetry 99 99 98 Oxygen Delivery 04/02/25 05:16 04/02/25 05:31 04/02/25 05:46 Temperature Pulse Rate 164 H 157 H 142 H Respiratory Rate 20 18 20 Blood Pressure 106/82 95/83 L 103/80 Pulse Oximetry 99 96 Oxygen Delivery 04/02/25 06:01 04/02/25 06:16 04/02/25 06:22 Temperature 98.6 F Pulse Rate 137 H 137 H 141 H Respiratory Rate 20 21 H 19 Blood Pressure 117/75 103/70 103/70 Pulse Oximetry 96 96 100 Oxygen Delivery 04/02/25 06:31 04/02/25 06:46 04/02/25 07:01 Temperature Pulse Rate 132 H 131 H 133 H Respiratory Rate 15 18 22 H Blood Pressure 124/77 100/75 104/69 Pulse Oximetry 96 100 Oxygen Delivery 04/02/25 07:10 04/02/25 07:25 04/02/25 07:31 Temperature 98.7 F Pulse Rate 127 H 127 H 127 H Respiratory Rate 32 H 15 17 Blood Pressure 122/71 124/71 109/69 Pulse Oximetry 94 98 98 Oxygen Delivery 04/02/25 07:46 04/02/25 08:01 04/02/25 08:31 Temperature Pulse Rate 121 H 131 H 130 H Respiratory Rate 15 17 17 Blood Pressure 119/82 105/63 117/86 Pulse Oximetry 97 98 98 Oxygen Delivery 04/02/25 09:01 04/02/25 09:16 04/02/25 09:31 Temperature Pulse Rate 130 H 132 H 132 H Respiratory Rate 17 18 17 Blood Pressure 118/82 114/78 116/72 Pulse Oximetry 96 95 96 Oxygen Delivery 04/02/25 09:46 04/02/25 10:01 04/02/25 10:16 Temperature Pulse Rate 122 H 137 H 126 H Respiratory Rate 18 20 17 Blood Pressure 104/75 108/69 122/79 Pulse Oximetry 95 94 95 Oxygen Delivery 04/02/25 10:31 04/02/25 10:46 04/02/25 11:45 Temperature 99.2 F Pulse Rate 135 H 129 H 137 H Respiratory Rate 21 H 17 16 Blood Pressure 104/85 124/78 135/75 Pulse Oximetry 98 97 98 Oxygen Delivery 04/02/25 14:18 Temperature 99 F Pulse Rate 123 H Respiratory Rate 16 Blood Pressure 121/71 Pulse Oximetry 99 Oxygen Delivery Exam Narrative: APPEARANCE: No apparent distress. Head: atraumatic. EYES: EOMI, NOSE: Atraumatic NECK: Trachea midline RESPIRATORY: No increased rate of breathing CTAB CARDIOVASCULAR: Tachycardic ABDOMINAL: Nondistended, G-tube in place MUSCULOSKELETAl: Contractures in significant muscle wasting NEURO: Response to pain SKIN:: Warm, dry. Normal color Const: General: ill appearing and cachectic Nutritional Appearance: cachectic HENMT: Head: normal to inspection, normocephalic and atraumatic Eyes: General: appearance normal, both eyes and all related structures Neck: Neck: normal visual inspection and no lymphadenopathy Resp: Auscultation: clear to auscultation bilaterally Cardio: Rate: regular rate Rhythm: regular rhythm GI: Other: G tube C/D/I ostomy - +fxn Urinary Catheter: Urinary Catheter: urine cloudy Skin: General skin exam: normal color and no rashes or lesions noted Neuro: Other: Nonverbal Extrem: General: normal to inspection H&P: Results Labs Labs: Short CBC 04/02/25 04/02/25 Range/Units 05:30 12:06 WBC 29.4 H (4.5-10.0) K/mm3 Hgb 17.7 14.7 D (14.0-18.0) g/dL Hct 56.5 H 46.2 (42.0-52.0) % Plt Count 461 H (150-375) k/mm3 BMP 04/02/25 05:57 Sodium 144 Potassium 3.8 Chloride 95 L Carbon Dioxide 21 L BUN 23 H Creatinine 1.59 H Glucose 140 H Calcium 9.5 Cardiac Enzymes 04/02/25 04/02/25 Range/Units 05:57 08:44 Troponin I 0.021 0.013 D (0.000-0.034) ng/mL Liver Function 04/02/25 Range/Units 05:57 Total Bilirubin 1.1 (0.2-1.3) mg/dL AST 37 (17-59) U/L ALT 36 (6-50) U/L Alkaline Phosphatase 112 (38-126) U/L Albumin 5.2 H (3.5-5.1) g/dL Assessment and Plan Assessment and plan (1) Sinus tachycardia: Code(s): R00.0 - Tachycardia, unspecified Status: Acute (2) Intussusception: Code(s): K56.1 - Intussusception Status: Acute (3) N&V (nausea and vomiting): Qualifiers: Vomiting type: unspecified Qualified Code(s): R11.2 - Nausea with vomiting, unspecified Code(s): R11.2 - Nausea with vomiting, unspecified Status: Acute (4) RACQUEL (acute kidney injury): Code(s): N17.9 - Acute kidney failure, unspecified Status: Acute (5) Lactic acidosis: Code(s): E87.20 - Acidosis, unspecified Status: Acute (6) UTI (urinary tract infection): Qualifiers: Hematuria presence: with hematuria Urinary tract infection type: acute cystitis Qualified Code(s): N30.01 - Acute cystitis with hematuria Code(s): N39.0 - Urinary tract infection, site not specified Status: Acute (7) Hematemesis: Code(s): K92.0 - Hematemesis Status: Acute Plan Hematemesis Continue monitoring H&H q.6 hours Transfuse due to symptomatic anemia Patient is nonverbal Patient is NPO S/P IV fluids NS at 100 mL/hr Keep SpO2 greater than 94% PPI 40 mg IV b.i.d. GI consulted Sepsis 2/2 UTI Possibly due to UTI Blood culture pending Nasal MRSA postive Currently on meropenem, metronidazole and vancomycin Target map greater than 65 Lactic acid decreased from 3.5-1.5 Monitor vital Tube feed Will wait until evaluate Start D5W Accuchecks Mild SSI RACQUEL Possible due to dehydration/prerenal On fluids Will trend Cr and BUN Will consider renal US,CK,nephrology consult if no improvement Intussusception Surgery reports incidental finding and no acute intervention SCD ordered Hold Home meds thro G-Tube until evaluation and due to ongoing hematemesis/intussusception Hospitalist MIPS Advance Care Plan I have confirmed that the patient's Advanced Care Plan is present, code status is documented, or surrogate decision maker is listed in patient medical record.: Yes Medication Reconciliation I have utilized all available resources to obtain, update and review the patients current medications (includes all prescriptions, OTC, herbals, cannabis, and nutritional supplements).: Yes
[2025-04-02] MEDS: SODIUM CHLORIDE 0.9% IV 1,000 ML 100 ML IV CONT (15:13)
[2025-04-02 17:59] LABS: Glucose Point of Care 112 mg/dl (65-105)
[2025-04-02] MEDS: DEXTROSE 5% 1,000 ML 1,000 ML 100 ML IV CONT (19:40)
[2025-04-02 20:38] LABS: Hematocrit 47.9 % (42.0-52.0); Hemoglobin 14.9 g/dL (14.0-18.0); Mean Corpuscular HGB Conc 31.1 g/dl (32-36); Mean Corpuscular Hemoglobin 27.2 pg (26-34); Mean Corpuscular Volume 87.6 fl (80-100); Mean Platelet Volume 8.8 fl (7.4-10.4); Platelet Count Result 372 k/mm3 (150-375); Red Blood Count 5.47 M/mm3 (4.6-6.20); Red Cell Distribution Width 14.2 % (11.5-14.5); White Blood Count 22.7 K/mm3 (4.5-10.0)
[2025-04-02 20:48] LABS: Alanine Aminotransferase 26 U/L (6-50); Albumin Level 4.3 g/dL (3.5-5.1); Alkaline Phosphatase 82 U/L (38-126); Anion Gap 15 mmol/L (4-12); Aspartate Amino Transferase 33 U/L (17-59); Bilirubin,Total 1.2 mg/dL (0.2-1.3); Blood Urea Nitrogen 12 mg/dL (9-20); Calcium 8.3 mg/dL (8.4-10.2); Carbon Dioxide 26 mmol/L (22-30); Chloride 107 mmol/L (98-107); Estimated CRCL calculation 59 ml/min; Estimated Glomerular Filt Rate > 60; Glucose 123 mg/dL (65-110); Potassium 3.7 mmol/L (3.4-5.0); Sodium 148 mmol/L (137-145)
[2025-04-02] MEDS: PANTOPRAZOLE SODIUM IV 40 MG VIAL IV PUSH (20:54)
[2025-04-03] VITALS (10 sets, daily range): BP systolic 111–121; BP diastolic 67–82; PULSE 100–122; RESP 14–16; TEMP 36.5–37.1; O2SAT 94–96
[2025-04-03 00:36] LABS: MRSA (PCR) NOT DETECTED (NOT DETECTE)
[2025-04-03 01:14] LABS: Glucose Point of Care 132 mg/dl (65-105)
[2025-04-03] MEDS: metroNIDAZOLE 500 MG/ISO 100ML 500 MG/100 ML BAG 100 MG IVPB ×3 (03:53→20:46)
[2025-04-03 06:11] LABS: Hematocrit 44.4 % (42.0-52.0); Hemoglobin 13.5 g/dL (14.0-18.0); Mean Corpuscular HGB Conc 30.4 g/dl (32-36); Mean Corpuscular Hemoglobin 27.5 pg (26-34); Mean Corpuscular Volume 90.4 fl (80-100); Mean Platelet Volume 8.9 fl (7.4-10.4); Platelet Count Result 336 k/mm3 (150-375); Red Blood Count 4.91 M/mm3 (4.6-6.20); Red Cell Distribution Width 14.1 % (11.5-14.5); White Blood Count 17.2 K/mm3 (4.5-10.0)
[2025-04-03 06:32] LABS: Alanine Aminotransferase 22 U/L (6-50); Albumin Level 3.9 g/dL (3.5-5.1); Alkaline Phosphatase 74 U/L (38-126); Anion Gap 10 mmol/L (4-12); Aspartate Amino Transferase 34 U/L (17-59); Bilirubin,Total 1.2 mg/dL (0.2-1.3); Blood Urea Nitrogen 9 mg/dL (9-20); Carbon Dioxide 27 mmol/L (22-30); Chloride 108 mmol/L (98-107); Estimated CRCL calculation 79 ml/min; Estimated Glomerular Filt Rate > 60; Glucose 112 mg/dL (65-110); Potassium 3.6 mmol/L (3.4-5.0); Sodium 145 mmol/L (137-145)
[2025-04-03 06:38] LABS: Glucose Point of Care 109 mg/dl (65-105)
[2025-04-03] MEDS: VANCOMYCIN 1,000 MG/NS 250 ML 1,000 MG/250 ML BAG 250 MG IVPB (08:06)
[2025-04-03] MEDS: PANTOPRAZOLE SODIUM IV 40 MG VIAL IV PUSH ×2 (09:35→20:46)
[2025-04-03] MEDS: DEXTROSE 5% 1,000 ML 1,000 ML 100 ML IV CONT (09:35)
[2025-04-03] MEDS: MEROPENEM 1 GM/NS 100 ML 1 GM/100 ML BAG IVPB ×2 (09:36→22:12)
--- NOTE | 2025-04-03 10:25 | PM.PNGS ---
Progress Note: A&P Assessment and Plan (1) Intussusception: Code(s): K56.1 - Intussusception Status: Acute Assessment and Plan: incidental finding, exam benign, +ostomy fxn, will start trophic feeds thru GJ tube Subjective Subjective Date/Time Seen: 04/03/25 10:25 Interval history: no acute issues, no further emesis Review of Systems Review of Systems: ROS unobtainable: Yes unobtainable due to mental status Exam Const: General: no acute distress and ill appearing Resp: Auscultation: diminished lung sounds Cardio: Rate: regular rate Rhythm: regular rhythm GI: Inspection: normal to inspection and non-distended GI Palp: No abdominal tenderness and Yes Soft to palpation Other: ostomy - +fxn G tube - minimal gastric drainage Objective Data Vital Signs Vital Signs: Vital Signs - 24 hr 04/02/25 10:31 04/02/25 10:46 04/02/25 11:45 Temperature 37.3 C Pulse Rate 135 H 129 H 137 H Respiratory Rate 21 H 17 16 Blood Pressure 104/85 124/78 135/75 Pulse Oximetry 98 97 98 Oxygen Delivery 04/02/25 14:18 04/02/25 20:00 04/02/25 20:00 Temperature 37.2 C Pulse Rate 123 H 130 H Respiratory Rate 16 Blood Pressure 121/71 Pulse Oximetry 99 Oxygen Delivery Room Air 04/02/25 21:20 04/03/25 00:00 04/03/25 04:00 Temperature 36.6 C Pulse Rate 129 H 116 H 116 H Respiratory Rate 18 Blood Pressure 116/63 Pulse Oximetry 95 Oxygen Delivery 04/03/25 06:00 04/03/25 08:00 04/03/25 09:00 Temperature 36.5 C Pulse Rate 116 H 122 H Respiratory Rate 14 Blood Pressure 111/67 Pulse Oximetry 94 94 Oxygen Delivery Room Air Intake/Output Intake/Output: Intake & Output 03/31/25 04/01/25 04/02/25 04/03/25 23:59 23:59 23:59 23:59 Intake Total 2300 1100 Output Total 800 Balance 2300 300 Meds/Results Medications: Active Medications Generic Name Dose Route Start Last Admin Trade Name Freq PRN Reason Stop Dose Admin Dextrose 12.5 gm 04/02/25 18:18 Dextrose 50% 25 Gm/50 Ml Syringe IV PUSH PRN PRN Hypoglycemia Protocol Glucagon 1 mg 04/02/25 18:18 Glucagon For Inj 1 Mg Vial IM PRN PRN Hypoglycemia Protocol Glucose 15 gm 04/02/25 18:18 Glucose Oral Gel 15 Gm Of Glucse In 37.5 Gm Tube PO PRN PRN Hypoglycemia Protocol Meropenem 1 gm in 100 mls @ 200 mls/hr 04/02/25 22:00 04/03/25 09:36 IVPB 200 mls/hr Q12H FARZAD Administration Metronidazole 500 mg in 100 mls @ 100 mls/hr 04/02/25 20:00 04/03/25 04:53 Flagyl 500 Mg/Iso Soln 100 Ml IVPB Infused Q8H FARZAD Infusion Dextrose 1,000 mls @ 100 mls/hr 04/02/25 18:20 04/03/25 09:35 Dextrose 5% 1,000 Ml IV CONT 100 mls/hr .Q10H FARZAD Administration Dextrose 1,000 mls @ 100 mls/hr 04/02/25 18:18 Dextrose 5% 1,000 Ml IVPB PRN PRN Hypoglycemia Protocol Vancomycin HCl 1,000 mg in 250 mls @ 250 mls/hr 04/03/25 08:00 04/03/25 08:06 Vancomycin 1,000 Mg/Ns 250 Ml IVPB 250 mls/hr Q18H FARZAD Administration Insulin Aspart 0 units 04/03/25 00:00 04/03/25 06:45 Insulin Aspart (*Bkc) 100 Units/Ml SUB-Q Not Given Q6HR FARZAD Protocol Pantoprazole Sodium 40 mg 04/02/25 21:00 04/03/25 09:35 Pantoprazole Sodium Iv 40 Mg Vial IV PUSH 40 mg Q12HR FARZAD Administration Perflutren Lipid Microsphere 0 ml 04/02/25 14:40 Perflutren Lipid Microspheres 1.5 Ml Vial Diluted To 10 Ml Total Volume IV PUSH 04/05/25 14:41 ONCE PRN adequate visualization Protocol Radiology Results: ITS Impressions Chest X-Ray 04/02/25 06:39 IMPRESSION: 1. Emphysema with bibasilar opacities which could represent atelectasis or pneumonia. Chest/Abdomen/Pelvis CT 04/02/25 07:26 IMPRESSION: 1. Stable appearance of severe bullous emphysema with chronic atelectasis/scarring at the bilateral lower lungs. 2. Proximal jejunal small bowel intussusception along a percutaneous gastrojejunostomy tube. 3. Small sliding-type hiatal hernia and diffuse mild wall thickening along the esophagus suggestive of reflux esophagitis related to reported nausea and vomiting. Labs Labs: Laboratory Results - last 24 hr 04/02/25 04/02/25 04/02/25 12:06 17:47 20:28 WBC 22.7 H RBC 5.47 Hgb 14.7 D 14.9 Hct 46.2 47.9 MCV 87.6 MCH 27.2 MCHC 31.1 L RDW 14.2 Plt Count 372 MPV 8.8 Sodium 148 H Potassium 3.7 Chloride 107 Carbon Dioxide 26 Anion Gap 15 H BUN 12 D Creatinine 0.87 Estim Creat Clear Calc 59 Estimated GFR > 60 Glucose 123 H POC Capillary Glucose 112 H Calcium 8.3 L Total Bilirubin 1.2 AST 33 ALT 26 Alkaline Phosphatase 82 Total Protein 8.0 Albumin 4.3 Nasal MRSA (PCR) 04/02/25 04/03/25 04/03/25 23:13 00:31 06:00 WBC 17.2 H RBC 4.91 Hgb 13.5 L Hct 44.4 MCV 90.4 MCH 27.5 MCHC 30.4 L RDW 14.1 Plt Count 336 MPV 8.9 Sodium 145 Potassium 3.6 Chloride 108 H Carbon Dioxide 27 Anion Gap 10 BUN 9 Creatinine 0.64 L Estim Creat Clear Calc 79 Estimated GFR > 60 Glucose 112 H POC Capillary Glucose 132 H Calcium 8.0 L Total Bilirubin 1.2 AST 34 ALT 22 Alkaline Phosphatase 74 Total Protein 8.0 Albumin 3.9 Nasal MRSA (PCR) Not detected 04/03/25 06:28 WBC RBC Hgb Hct MCV MCH MCHC RDW Plt Count MPV Sodium Potassium Chloride Carbon Dioxide Anion Gap BUN Creatinine Estim Creat Clear Calc Estimated GFR Glucose POC Capillary Glucose 109 H Calcium Total Bilirubin AST ALT Alkaline Phosphatase Total Protein Albumin Nasal MRSA (PCR)
--- NOTE | 2025-04-03 10:34 | PM.IMPN ---
Progress Note: A&P Assessment and Plan (1) Sinus tachycardia: Code(s): R00.0 - Tachycardia, unspecified Status: Acute (2) Intussusception: Code(s): K56.1 - Intussusception Status: Acute (3) N&V (nausea and vomiting): Qualifiers: Vomiting type: unspecified Qualified Code(s): R11.2 - Nausea with vomiting, unspecified Code(s): R11.2 - Nausea with vomiting, unspecified Status: Acute (4) RACQUEL (acute kidney injury): Code(s): N17.9 - Acute kidney failure, unspecified Status: Acute (5) Lactic acidosis: Code(s): E87.20 - Acidosis, unspecified Status: Acute (6) UTI (urinary tract infection): Qualifiers: Hematuria presence: with hematuria Urinary tract infection type: acute cystitis Qualified Code(s): N30.01 - Acute cystitis with hematuria Code(s): N39.0 - Urinary tract infection, site not specified Status: Acute (7) Hematemesis: Code(s): K92.0 - Hematemesis Status: Acute Plan Hematemesis Continue monitoring H&H q.6 hours Transfuse due to symptomatic anemia Patient is nonverbal Patient is NPO S/P IV fluids NS at 100 mL/hr Keep SpO2 greater than 94% PPI 40 mg IV b.i.d. GI consulted Sepsis 2/2 UTI Blood culture growing Gram-positive cocci Possibly due to UTI Nasal MRSA postive Currently on meropenem, metronidazole and vancomycin Target map greater than 65 Lactic acid decreased from 3.5-1.5 Monitor vital Tube feed Started on TPN Accuchecks Mild SSI RACQUEL Possible due to dehydration/prerenal On fluids Will trend Cr and BUN Will consider renal US,CK,nephrology consult if no improvement Intussusception Surgery reports incidental finding and no acute intervention SCD ordered Hold Home meds thro G-Tube until evaluation and due to ongoing hematemesis/intussusception Subjective Date/time seen: 04/03/25 10:34 Interval history: WBC degrees from 29.4- 22.7-17.2. Pending evaluation from GI. Blood culture grows Gram-positive cocci. Patient started on tube feed Review of Systems Review of Systems: ROS unobtainable: Yes unobtainable due to mental status Exam Narrative: APPEARANCE: No apparent distress. Head: atraumatic. EYES: EOMI, NOSE: Atraumatic NECK: Trachea midline RESPIRATORY: No increased rate of breathing CTAB CARDIOVASCULAR: Tachycardic ABDOMINAL: Nondistended, G-tube in place MUSCULOSKELETAl: Contractures in significant muscle wasting NEURO: Response to pain SKIN:: Warm, dry. Normal color Const: General: ill appearing and cachectic Nutritional Appearance: cachectic HENMT: Head: normal to inspection, normocephalic and atraumatic Eyes: General: appearance normal, both eyes and all related structures Neck: Neck: normal visual inspection and no lymphadenopathy Resp: Auscultation: clear to auscultation bilaterally Cardio: Rate: regular rate Rhythm: regular rhythm GI: Other: G tube C/D/I ostomy - +fxn Urinary Catheter: Urinary Catheter: urine cloudy Skin: General skin exam: normal color and no rashes or lesions noted Neuro: Other: Nonverbal Extrem: General: normal to inspection Objective Data Vital Signs Vital Signs: Vital Signs - 24 hr 04/02/25 10:46 04/02/25 11:45 04/02/25 14:18 Temperature 99.2 F 99 F Pulse Rate 129 H 137 H 123 H Respiratory Rate 17 16 16 Blood Pressure 124/78 135/75 121/71 Pulse Oximetry 97 98 99 Oxygen Delivery 04/02/25 20:00 04/02/25 20:00 04/02/25 21:20 Temperature 97.9 F Pulse Rate 130 H 129 H Respiratory Rate 18 Blood Pressure 116/63 Pulse Oximetry 95 Oxygen Delivery Room Air 04/03/25 00:00 04/03/25 04:00 04/03/25 06:00 Temperature 97.7 F Pulse Rate 116 H 116 H 116 H Respiratory Rate 14 Blood Pressure 111/67 Pulse Oximetry 94 Oxygen Delivery 04/03/25 08:00 04/03/25 09:00 Temperature Pulse Rate 122 H Respiratory Rate Blood Pressure Pulse Oximetry 94 Oxygen Delivery Room Air Intake/Output Intake/Output: Intake & Output 03/31/25 04/01/25 04/02/25 04/03/25 23:59 23:59 23:59 23:59 Intake Total 2300 1100 Output Total 800 Balance 2300 300 Meds/Results Medications: Active Medications Generic Name Dose Route Start Last Admin Trade Name Freq PRN Reason Stop Dose Admin Dextrose 12.5 gm 04/02/25 18:18 Dextrose 50% 25 Gm/50 Ml Syringe IV PUSH PRN PRN Hypoglycemia Protocol Glucagon 1 mg 04/02/25 18:18 Glucagon For Inj 1 Mg Vial IM PRN PRN Hypoglycemia Protocol Glucose 15 gm 04/02/25 18:18 Glucose Oral Gel 15 Gm Of Glucse In 37.5 Gm Tube PO PRN PRN Hypoglycemia Protocol Meropenem 1 gm in 100 mls @ 200 mls/hr 04/02/25 22:00 04/03/25 09:36 IVPB 200 mls/hr Q12H FARZAD Administration Metronidazole 500 mg in 100 mls @ 100 mls/hr 04/02/25 20:00 04/03/25 04:53 Flagyl 500 Mg/Iso Soln 100 Ml IVPB Infused Q8H FARZAD Infusion Dextrose 1,000 mls @ 100 mls/hr 04/02/25 18:20 04/03/25 09:35 Dextrose 5% 1,000 Ml IV CONT 100 mls/hr .Q10H FARZAD Administration Dextrose 1,000 mls @ 100 mls/hr 04/02/25 18:18 Dextrose 5% 1,000 Ml IVPB PRN PRN Hypoglycemia Protocol Vancomycin HCl 1,000 mg in 250 mls @ 250 mls/hr 04/03/25 08:00 04/03/25 08:06 Vancomycin 1,000 Mg/Ns 250 Ml IVPB 250 mls/hr Q18H FARZAD Administration Insulin Aspart 0 units 04/03/25 00:00 04/03/25 06:45 Insulin Aspart (*Bkc) 100 Units/Ml SUB-Q Not Given Q6HR FARZAD Protocol Pantoprazole Sodium 40 mg 04/02/25 21:00 04/03/25 09:35 Pantoprazole Sodium Iv 40 Mg Vial IV PUSH 40 mg Q12HR FARZAD Administration Perflutren Lipid Microsphere 0 ml 04/02/25 14:40 Perflutren Lipid Microspheres 1.5 Ml Vial Diluted To 10 Ml Total Volume IV PUSH 04/05/25 14:41 ONCE PRN adequate visualization Protocol Radiology Results: ITS Impressions Chest X-Ray 04/02/25 06:39 IMPRESSION: 1. Emphysema with bibasilar opacities which could represent atelectasis or pneumonia. Chest/Abdomen/Pelvis CT 04/02/25 07:26 IMPRESSION: 1. Stable appearance of severe bullous emphysema with chronic atelectasis/scarring at the bilateral lower lungs. 2. Proximal jejunal small bowel intussusception along a percutaneous gastrojejunostomy tube. 3. Small sliding-type hiatal hernia and diffuse mild wall thickening along the esophagus suggestive of reflux esophagitis related to reported nausea and vomiting. Labs Labs: Laboratory Results - last 24 hr 04/02/25 04/02/25 04/02/25 12:06 17:47 20:28 WBC 22.7 H RBC 5.47 Hgb 14.7 D 14.9 Hct 46.2 47.9 MCV 87.6 MCH 27.2 MCHC 31.1 L RDW 14.2 Plt Count 372 MPV 8.8 Sodium 148 H Potassium 3.7 Chloride 107 Carbon Dioxide 26 Anion Gap 15 H BUN 12 D Creatinine 0.87 Estim Creat Clear Calc 59 Estimated GFR > 60 Glucose 123 H POC Capillary Glucose 112 H Calcium 8.3 L Total Bilirubin 1.2 AST 33 ALT 26 Alkaline Phosphatase 82 Total Protein 8.0 Albumin 4.3 Nasal MRSA (PCR) 04/02/25 04/03/25 04/03/25 23:13 00:31 06:00 WBC 17.2 H RBC 4.91 Hgb 13.5 L Hct 44.4 MCV 90.4 MCH 27.5 MCHC 30.4 L RDW 14.1 Plt Count 336 MPV 8.9 Sodium 145 Potassium 3.6 Chloride 108 H Carbon Dioxide 27 Anion Gap 10 BUN 9 Creatinine 0.64 L Estim Creat Clear Calc 79 Estimated GFR > 60 Glucose 112 H POC Capillary Glucose 132 H Calcium 8.0 L Total Bilirubin 1.2 AST 34 ALT 22 Alkaline Phosphatase 74 Total Protein 8.0 Albumin 3.9 Nasal MRSA (PCR) Not detected 04/03/25 06:28 WBC RBC Hgb Hct MCV MCH MCHC RDW Plt Count MPV Sodium Potassium Chloride Carbon Dioxide Anion Gap BUN Creatinine Estim Creat Clear Calc Estimated GFR Glucose POC Capillary Glucose 109 H Calcium Total Bilirubin AST ALT Alkaline Phosphatase Total Protein Albumin Nasal MRSA (PCR) Hospitalist MIPS Advance Care Plan I have confirmed that the patient's Advanced Care Plan is present, code status is documented, or surrogate decision maker is listed in patient medical record.: Yes Medication Reconciliation I have utilized all available resources to obtain, update and review the patients current medications (includes all prescriptions, OTC, herbals, cannabis, and nutritional supplements).: Yes
[2025-04-03 11:33] LABS: Glucose Point of Care 99 mg/dl (65-105)
--- NOTE | 2025-04-03 15:25 | P.CONGI_ITS ---
Assessment and Plan Assessment and plan (1) Coffee ground emesis: Code(s): K92.0 - Hematemesis Status: Acute Assessment and Plan: noted per staff x1, no melena, normal stool in ostomy on arrival he was hemoconcentrated then after fluids hgb down to baseline recommend to continue with ppi, ok to advance tube feeding as tolerated no EGD for now, probably had esophagitis since h/h stable now that dehydration was treated but will monitor for any changes surgery evaluated patient, no abdominal pain and normalization of elevated lactic after fluids, no indication of surgery (2) Intussusception: Code(s): K56.1 - Intussusception Status: Acute Assessment and Plan: probably incidental finding per surgery (3) Acute dehydration: Code(s): E86.0 - Dehydration Status: Acute Assessment and Plan: treated (4) Lactic acidosis: Code(s): E87.20 - Acidosis, unspecified Status: Acute Assessment and Plan: resolved (5) Sepsis: Qualifiers: Sepsis type: sepsis due to unspecified organism Sepsis acute organ dysfunction status: without acute organ dysfunction Qualified Code(s): A41.9 - Sepsis, unspecified organism Code(s): A41.9 - Sepsis, unspecified organism Status: Acute Assessment and Plan: on treatment, ? uti (6) Autism: Code(s): F84.0 - Autistic disorder Status: Chronic (7) Cognitive developmental delay: Code(s): F81.9 - Developmental disorder of scholastic skills, unspecified Status: Acute (8) UTI (urinary tract infection): Qualifiers: Urinary tract infection type: acute cystitis Hematuria presence: with hematuria Qualified Code(s): N30.01 - Acute cystitis with hematuria Code(s): N39.0 - Urinary tract infection, site not specified Status: Acute GI Consult Note Consult date/time: 04/03/25 15:25 Reason for consult: small bowel intussusception HPI: Ricky Swanson is a 44 year old male with past medical history of autism with chronic nonverbal state, 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 Patient has mental disability and nonverbal. Unable to get any history, apparently some report of coffee ground emesis but stool in ostomy is brown and BUN normal, also stable hgb. ER labs WBC 29.4, hemoglobin 7.7 (baseline 15) then repeat 14, hplatelet 461, sodium 144, potassium 3.8, anion gap 28, creatinine 1.5, glucose 140, lactic acid decreased from 3.5-1.5. Chest/abdomen/pelvis CT :shows stable appearance of several bullous emphysema with chronic atelectasis/scarring at the bilateral lower lung. Proximal jejunal small bowel intussusception along a percutaneous gastrojejunostomy tube. Small sliding type hiatal hernia and diffuse mild wall thickening along the esophagus suggestive of reflux esophagitis related to reported nausea and vomiting. UA: Positive for nitrates and leukocyte esterase, WBC 10-15. Tube feeding at 10 ml/h and tolerating, already evaluated by surgery. Review of Systems 2 Review of Systems: ROS unobtainable: Yes unobtainable due to mental status PMFSH Past Medical History Medical History (Updated 04/03/25 @ 15:29 by Suleman Mei MD) Coffee ground emesis Chronic indwelling Cardona catheter Cognitive developmental delay Autism Surgical History Surgical History History of gastrostomy tube placement History of exploratory laparotomy (09/2022) Exploratory laparotomy with sigmoid colon resection and colostomy for ischemic bowel. Complicated by septic shock and respiratory failure requiring intubation Family History Family History Other Family history unknown Social History Social History Social History: Patient lives in [place] [facility] Surrogate medical decision maker: Man Swanson, father or Samia Hale, sister. Code status: Full code. Smoking status: Never smoker Second hand tobacco smoke exposure: No Alcohol intake: unknown Substance use: unknown Substance use type: unknown Additional living arrangements comments: Resident at [facility]. Spiritual care concerns: No Meds Home Medications and Allergies Home Medications Medication Instructions Recorded Confirmed Type famotidine 20 mg tablet 20 mg feeding tube Q12HR 30 days 11/08/22 04/02/25 Rx #60 tabs polyethylene glycol 3350 17 17 g feeding tube DAILY 01/09/24 04/02/25 History gram/dose oral powder (Miralax) sennosides 8.6 mg-docusate sodium 1 tablet PO Q12H 01/09/24 04/02/25 History 50 mg tablet (Senna Plus) promethazine 12.5 mg tablet 12.5 mg feeding tube DAILY PRN 09/28/24 04/02/25 History nausea and vomiting levofloxacin 750 mg tablet 750 mg PO DAILY 4 days #4 tabs 03/24/25 04/02/25 Rx tamsulosin 0.4 mg capsule 0.4 mg PO QHS #30 caps 03/24/25 04/02/25 Rx ondansetron 4 mg disintegrating 4 mg PO Q8H PRN nausea and 03/28/25 04/02/25 Rx tablet vomiting #14 tabs Allergies Allergy/AdvReac Type Severity Reaction Status Date / Time No Known Allergies Allergy Verified 03/19/25 17:19 Vital Signs Vital Signs - 24 hr 04/02/25 20:00 04/02/25 20:00 04/02/25 21:20 Temperature 97.9 F Pulse Rate 130 H 129 H Respiratory Rate 18 Blood Pressure 116/63 Pulse Oximetry 95 Oxygen Delivery Room Air 04/03/25 00:00 04/03/25 04:00 04/03/25 06:00 Temperature 97.7 F Pulse Rate 116 H 116 H 116 H Respiratory Rate 14 Blood Pressure 111/67 Pulse Oximetry 94 Oxygen Delivery 04/03/25 08:00 04/03/25 09:00 04/03/25 12:00 Temperature Pulse Rate 122 H 106 H Respiratory Rate Blood Pressure Pulse Oximetry 94 Oxygen Delivery Room Air 04/03/25 14:00 Temperature 98.6 F Pulse Rate 116 H Respiratory Rate 14 Blood Pressure 116/73 Pulse Oximetry 96 Oxygen Delivery Exam 2 Const: General: no acute distress Other: chronically ill appearing but seems comfortable HENMT: Face/Nose/Sinus: Normal nares present Neck: Neck: supple Resp: Auscultation: diminished lung sounds Cardio: Rate: regular rate Rhythm: regular rhythm GI: Inspection: normal to inspection GI Palp: No abdominal tenderness and Yes Soft to palpation Other: ostomy - +fxn, brown stool, no blood G tube - minimal gastric drainage Skin: General skin exam: normal color Neuro: Other: non verbal Extrem: General: normal to inspection Psych: Other: unable to assess Results Labs 04/03/25 06:00 04/03/25 06:00 Labs: Short CBC 04/02/25 04/03/25 Range/Units 20:28 06:00 WBC 22.7 H 17.2 H (4.5-10.0) K/mm3 Hgb 14.9 13.5 L (14.0-18.0) g/dL Hct 47.9 44.4 (42.0-52.0) % Plt Count 372 336 (150-375) k/mm3 BMP 04/02/25 04/03/25 20:28 06:00 Sodium 148 H 145 Potassium 3.7 3.6 Chloride 107 108 H Carbon Dioxide 26 27 BUN 12 D 9 Creatinine 0.87 0.64 L Glucose 123 H 112 H Calcium 8.3 L 8.0 L Liver Function 04/02/25 04/03/25 Range/Units 20:28 06:00 Total Bilirubin 1.2 1.2 (0.2-1.3) mg/dL AST 33 34 (17-59) U/L ALT 26 22 (6-50) U/L Alkaline Phosphatase 82 74 (38-126) U/L Albumin 4.3 3.9 (3.5-5.1) g/dL
[2025-04-03 18:12] LABS: Glucose Point of Care 94 mg/dl (65-105)
[2025-04-03 20:35] LABS: Glucose Point of Care 96 mg/dl (65-105)
[2025-04-04] VITALS (9 sets, daily range): BP systolic 112–123; BP diastolic 68–82; PULSE 91–107; RESP 16–18; TEMP 36.6–36.8; O2SAT 94–95; BMI 16.4
[2025-04-04 01:16] LABS: Glucose Point of Care 97 mg/dl (65-105)
[2025-04-04 01:24] LABS: Vancomycin Trough 5.4 ug/mL (10.0-20.0)
[2025-04-04] MEDS: VANCOMYCIN 1,250 MG/NS 250 ML 1,250 MG/250 ML BAG 166.67 MG IVPB (02:21)
[2025-04-04] MEDS: metroNIDAZOLE 500 MG/ISO 100ML 500 MG/100 ML BAG 100 MG IVPB (03:56)
[2025-04-04 06:12] LABS: Hematocrit 41.3 % (42.0-52.0); Mean Corpuscular HGB Conc 31.5 g/dl (32-36); Mean Corpuscular Hemoglobin 27.8 pg (26-34); Mean Corpuscular Volume 88.2 fl (80-100); Mean Platelet Volume 8.9 fl (7.4-10.4); Platelet Count Result 291 k/mm3 (150-375); Red Blood Count 4.68 M/mm3 (4.6-6.20); Red Cell Distribution Width 13.7 % (11.5-14.5); White Blood Count 10.7 K/mm3 (4.5-10.0)
[2025-04-04 06:24] LABS: Alanine Aminotransferase 19 U/L (6-50); Albumin Level 3.6 g/dL (3.5-5.1); Alkaline Phosphatase 65 U/L (38-126); Anion Gap 9 mmol/L (4-12); Aspartate Amino Transferase 29 U/L (17-59); Bilirubin,Total 1.1 mg/dL (0.2-1.3); Blood Urea Nitrogen 7 mg/dL (9-20); Carbon Dioxide 27 mmol/L (22-30); Chloride 108 mmol/L (98-107); Estimated CRCL calculation 86 ml/min; Estimated Glomerular Filt Rate > 60; Glucose 100 mg/dL (65-110); Potassium 3.3 mmol/L (3.4-5.0); Sodium 144 mmol/L (137-145)
[2025-04-04 07:08] LABS: Glucose Point of Care 91 mg/dl (65-105)
[2025-04-04] MEDS: PANTOPRAZOLE SODIUM IV 40 MG VIAL IV PUSH ×2 (09:08→21:57)
[2025-04-04] MEDS: MEROPENEM 1 GM/NS 100 ML 1 GM/100 ML BAG IVPB (09:09)
--- NOTE | 2025-04-04 11:20 | PCCARD ---
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 UNABLE TO GET DIAGNOSTIC IMAGES. PATIENT IS NON-VERBAL, AUTISTIC, HAS FEEDING TUBE AND IS EXTREMELY SMALL BUT VERY STRONG AND STRUGGLED WITH STAFF. CANCELLED ECHOCARDIOGRAM DUE TO PATIENT CONDITION.
--- NOTE | 2025-04-04 12:12 | PM.IMPN ---
Progress Note: A&P Assessment and Plan (1) Sinus tachycardia: Code(s): R00.0 - Tachycardia, unspecified Status: Acute (2) Intussusception: Code(s): K56.1 - Intussusception Status: Acute (3) N&V (nausea and vomiting): Qualifiers: Vomiting type: unspecified Qualified Code(s): R11.2 - Nausea with vomiting, unspecified Code(s): R11.2 - Nausea with vomiting, unspecified Status: Acute (4) RACQUEL (acute kidney injury): Code(s): N17.9 - Acute kidney failure, unspecified Status: Acute (5) Lactic acidosis: Code(s): E87.20 - Acidosis, unspecified Status: Acute (6) UTI (urinary tract infection): Qualifiers: Urinary tract infection type: acute cystitis Hematuria presence: with hematuria Qualified Code(s): N30.01 - Acute cystitis with hematuria Code(s): N39.0 - Urinary tract infection, site not specified Status: Acute (7) Hematemesis: Code(s): K92.0 - Hematemesis Status: Acute Plan Hematemesis Continue monitoring H&H q.6 hours Transfuse due to symptomatic anemia Patient is nonverbal Patient is NPO PPI 40 mg IV b.i.d. GI evaluated and noted no Endoscopy for now Continue G tube feeding Sepsis 2/2 UTI Blood culture growing double GDouble coagulase negative staph, likely contaminants Possibly due to UTI Nasal MRSA positive s/p meropenem, metronidazole and vancomycin now on Levaquin Possible UTI Continue above care Pneumonia CXR showed bibasilar infiltrates Continue Levaquin monitor Tube feed Started on TPN Accuchecks Mild SSI RACQUEL Possible due to dehydration/prerenal On fluids Will trend Cr and BUN Will consider renal US,CK,nephrology consult if no improvement Intussusception Surgery reports incidental finding and no acute intervention recommends trophic feeds awaiting surgery clearance for discharge plannign SCD ordered awaiting surgery clearance for dischrge Subjective Date/time seen: 04/04/25 12:12 Interval history: Comfortable at bedside and non verbal at the time of this encounter Review of Systems Review of Systems: ROS unobtainable: Yes unobtainable due to mental status Exam Narrative: APPEARANCE: No apparent distress. Head: atraumatic. EYES: EOMI, NOSE: Atraumatic NECK: Trachea midline RESPIRATORY: No increased rate of breathing CTAB CARDIOVASCULAR: Tachycardic ABDOMINAL: Nondistended, G-tube in place MUSCULOSKELETAl: Contractures in significant muscle wasting NEURO: Non verbal SKIN:: Warm, dry. Normal color Const: General: ill appearing and cachectic Nutritional Appearance: cachectic HENMT: Head: normal to inspection, normocephalic and atraumatic Eyes: General: appearance normal, both eyes and all related structures Neck: Neck: normal visual inspection and no lymphadenopathy Resp: Auscultation: clear to auscultation bilaterally Cardio: Rate: regular rate Rhythm: regular rhythm GI: Other: G tube C/D/I ostomy - +fxn Urinary Catheter: Urinary Catheter: urine cloudy Skin: General skin exam: normal color and no rashes or lesions noted Neuro: Other: Nonverbal Extrem: General: normal to inspection Objective Data Vital Signs Vital Signs: Vital Signs - 24 hr 04/03/25 14:00 04/03/25 16:00 04/03/25 20:00 Temperature 98.6 F Pulse Rate 116 H 109 H Respiratory Rate 14 Blood Pressure 116/73 Pulse Oximetry 96 Oxygen Delivery Room Air 04/03/25 20:00 04/03/25 20:22 04/04/25 00:00 Temperature 98.7 F Pulse Rate 100 100 107 H Respiratory Rate 16 Blood Pressure 121/82 Pulse Oximetry 96 Oxygen Delivery 04/04/25 04:00 04/04/25 06:00 04/04/25 08:00 Temperature 98.3 F Pulse Rate 93 97 100 Respiratory Rate 16 Blood Pressure 112/68 Pulse Oximetry 94 Oxygen Delivery Intake/Output Intake/Output: Intake & Output 04/01/25 04/02/25 04/03/25 04/04/25 23:59 23:59 23:59 23:59 Intake Total 2300 1750 590 Output Total 800 Balance 2300 950 590 Meds/Results Medications: Active Medications Generic Name Dose Route Start Last Admin Trade Name Freq PRN Reason Stop Dose Admin Dextrose 12.5 gm 04/02/25 18:18 Dextrose 50% 25 Gm/50 Ml Syringe IV PUSH PRN PRN Hypoglycemia Protocol Glucagon 1 mg 04/02/25 18:18 Glucagon For Inj 1 Mg Vial IM PRN PRN Hypoglycemia Protocol Glucose 15 gm 04/02/25 18:18 Glucose Oral Gel 15 Gm Of Glucse In 37.5 Gm Tube PO PRN PRN Hypoglycemia Protocol Dextrose 1,000 mls @ 100 mls/hr 04/02/25 18:18 Dextrose 5% 1,000 Ml IVPB PRN PRN Hypoglycemia Protocol Insulin Aspart 0 units 04/03/25 00:00 04/04/25 12:10 Insulin Aspart (*Bkc) 100 Units/Ml SUB-Q Not Given Q6HR FARZAD Protocol Levofloxacin 750 mg 04/04/25 21:00 Levofloxacin 750 Mg Tablet PO 04/08/25 21:01 QHS FARZAD Pantoprazole Sodium 40 mg 04/02/25 21:00 04/04/25 09:08 Pantoprazole Sodium Iv 40 Mg Vial IV PUSH 40 mg Q12HR FARZAD Administration Perflutren Lipid Microsphere 0 ml 04/02/25 14:40 Perflutren Lipid Microspheres 1.5 Ml Vial Diluted To 10 Ml Total Volume IV PUSH 04/05/25 14:41 ONCE PRN adequate visualization Protocol Radiology Results: ITS Impressions Chest X-Ray 04/02/25 06:39 IMPRESSION: 1. Emphysema with bibasilar opacities which could represent atelectasis or pneumonia. Chest/Abdomen/Pelvis CT 04/02/25 07:26 IMPRESSION: 1. Stable appearance of severe bullous emphysema with chronic atelectasis/scarring at the bilateral lower lungs. 2. Proximal jejunal small bowel intussusception along a percutaneous gastrojejunostomy tube. 3. Small sliding-type hiatal hernia and diffuse mild wall thickening along the esophagus suggestive of reflux esophagitis related to reported nausea and vomiting. Labs Labs: Laboratory Results - last 24 hr 04/02/25 04/03/25 04/03/25 05:30 18:09 20:32 WBC RBC Hgb Hct MCV MCH MCHC RDW Plt Count MPV O2 Liters/Min Not Reportable Sodium Potassium Chloride Carbon Dioxide Anion Gap BUN Creatinine Estim Creat Clear Calc Estimated GFR Glucose POC Capillary Glucose 94 96 Calcium Total Bilirubin AST ALT Alkaline Phosphatase Total Protein Albumin Vancomycin Trough 04/04/25 04/04/25 04/04/25 01:01 01:12 05:58 WBC 10.7 H RBC 4.68 Hgb 13.0 L Hct 41.3 L MCV 88.2 MCH 27.8 MCHC 31.5 L RDW 13.7 Plt Count 291 MPV 8.9 O2 Liters/Min Sodium 144 Potassium 3.3 L Chloride 108 H Carbon Dioxide 27 Anion Gap 9 BUN 7 L Creatinine 0.58 L Estim Creat Clear Calc 86 Estimated GFR > 60 Glucose 100 POC Capillary Glucose 97 Calcium 8.0 L Total Bilirubin 1.1 AST 29 ALT 19 Alkaline Phosphatase 65 Total Protein 7.0 Albumin 3.6 Vancomycin Trough 5.4 L 04/04/25 06:50 WBC RBC Hgb Hct MCV MCH MCHC RDW Plt Count MPV O2 Liters/Min Sodium Potassium Chloride Carbon Dioxide Anion Gap BUN Creatinine Estim Creat Clear Calc Estimated GFR Glucose POC Capillary Glucose 91 Calcium Total Bilirubin AST ALT Alkaline Phosphatase Total Protein Albumin Vancomycin Trough
[2025-04-04 12:15] LABS: Glucose Point of Care 105 mg/dl (65-105)
[2025-04-04 17:31] LABS: Glucose Point of Care 100 mg/dl (65-105)
--- NOTE | 2025-04-04 17:44 | WPDGIPROGNO ---
Progress Note: A&P Assessment and Plan (1) Malfunction of gastrostomy tube: Code(s): K94.23 - Gastrostomy malfunction Status: Inactive Assessment and Plan: clogged GJ tube we do not have that type of tube replacement in the hospital, patient will need to be transferred to original facility where feeding tube was placed (2) Intussusception: Code(s): K56.1 - Intussusception Status: Acute (3) Coffee ground emesis: Code(s): K92.0 - Hematemesis Status: Acute Assessment and Plan: no more report of coffee ground emesis no need of urgent egd ppi (4) Sepsis: Qualifiers: Sepsis type: sepsis due to unspecified organism Sepsis acute organ dysfunction status: without acute organ dysfunction Qualified Code(s): A41.9 - Sepsis, unspecified organism Code(s): A41.9 - Sepsis, unspecified organism Status: Acute Assessment and Plan: wbc trending down (5) Urinary tract infection associated with catheterization of urinary tract: Code(s): T83.511A - Infection and inflammatory reaction due to indwelling urethral catheter, initial encounter; N39.0 - Urinary tract infection, site not specified Status: Acute Subjective Date/time seen: 04/04/25 17:44 Interval history: staff noted that j-tube is not flushing and probably is clogged Review of Systems Review of Systems: All systems reviewed & are unremarkable except as noted in HPI and below Exam Const: General: no acute distress Other: chronically ill appearing but seems comfortable HENMT: Face/Nose/Sinus: Normal nares present Neck: Neck: supple Resp: Auscultation: diminished lung sounds Cardio: Rate: regular rate Rhythm: regular rhythm GI: Inspection: normal to inspection GI Palp: No abdominal tenderness and Yes Soft to palpation Other: ostomy - +fxn, brown stool, no blood GJ tube seems clogged Skin: General skin exam: normal color Neuro: Other: non verbal Extrem: General: normal to inspection Psych: Other: unable to assess Objective Data Vital Signs Vital Signs: Vital Signs - 24 hr 04/03/25 20:00 04/03/25 20:00 04/03/25 20:22 Temperature 98.7 F Pulse Rate 100 100 Respiratory Rate 16 Blood Pressure 121/82 Pulse Oximetry 96 Oxygen Delivery Room Air 04/04/25 00:00 04/04/25 04:00 04/04/25 06:00 Temperature 98.3 F Pulse Rate 107 H 93 97 Respiratory Rate 16 Blood Pressure 112/68 Pulse Oximetry 94 Oxygen Delivery 04/04/25 08:00 04/04/25 12:00 04/04/25 14:00 Temperature 97.8 F Pulse Rate 100 107 H 98 Respiratory Rate 18 Blood Pressure 123/82 Pulse Oximetry 95 Oxygen Delivery Intake/Output Intake/Output: Intake & Output 04/01/25 04/02/25 04/03/25 04/04/25 23:59 23:59 23:59 23:59 Intake Total 2300 1750 590 Output Total 800 100 Balance 2300 950 490 Meds/Results Medications: Active Medications Generic Name Dose Route Start Last Admin Trade Name Freq PRN Reason Stop Dose Admin Dextrose 12.5 gm 04/02/25 18:18 Dextrose 50% 25 Gm/50 Ml Syringe IV PUSH PRN PRN Hypoglycemia Protocol Enoxaparin Sodium 40 mg 04/04/25 12:40 04/04/25 12:43 Enoxaparin 40 Mg/0.4 Ml Syringe SUB-Q Not Given DAILY FARZAD Glucagon 1 mg 04/02/25 18:18 Glucagon For Inj 1 Mg Vial IM PRN PRN Hypoglycemia Protocol Glucose 15 gm 04/02/25 18:18 Glucose Oral Gel 15 Gm Of Glucse In 37.5 Gm Tube PO PRN PRN Hypoglycemia Protocol Dextrose 1,000 mls @ 100 mls/hr 04/02/25 18:18 Dextrose 5% 1,000 Ml IVPB PRN PRN Hypoglycemia Protocol Insulin Aspart 0 units 04/03/25 00:00 04/04/25 12:10 Insulin Aspart (*Bkc) 100 Units/Ml SUB-Q Not Given Q6HR FARZAD Protocol Levofloxacin 750 mg 04/04/25 21:00 Levofloxacin 750 Mg Tablet PO 04/08/25 21:01 QHS FARZAD Pantoprazole Sodium 40 mg 04/02/25 21:00 04/04/25 09:08 Pantoprazole Sodium Iv 40 Mg Vial IV PUSH 40 mg Q12HR FARZAD Administration Perflutren Lipid Microsphere 0 ml 04/02/25 14:40 Perflutren Lipid Microspheres 1.5 Ml Vial Diluted To 10 Ml Total Volume IV PUSH 04/05/25 14:41 ONCE PRN adequate visualization Protocol Radiology Results: ITS Impressions Chest X-Ray 04/02/25 06:39 IMPRESSION: 1. Emphysema with bibasilar opacities which could represent atelectasis or pneumonia. Chest/Abdomen/Pelvis CT 04/02/25 07:26 IMPRESSION: 1. Stable appearance of severe bullous emphysema with chronic atelectasis/scarring at the bilateral lower lungs. 2. Proximal jejunal small bowel intussusception along a percutaneous gastrojejunostomy tube. 3. Small sliding-type hiatal hernia and diffuse mild wall thickening along the esophagus suggestive of reflux esophagitis related to reported nausea and vomiting. Labs Labs: Laboratory Results - last 24 hr 04/02/25 04/03/25 04/03/25 05:30 18:09 20:32 WBC RBC Hgb Hct MCV MCH MCHC RDW Plt Count MPV O2 Liters/Min Not Reportable Sodium Potassium Chloride Carbon Dioxide Anion Gap BUN Creatinine Estim Creat Clear Calc Estimated GFR Glucose POC Capillary Glucose 94 96 Calcium Total Bilirubin AST ALT Alkaline Phosphatase Total Protein Albumin Vancomycin Trough 04/04/25 04/04/25 04/04/25 01:01 01:12 05:58 WBC 10.7 H RBC 4.68 Hgb 13.0 L Hct 41.3 L MCV 88.2 MCH 27.8 MCHC 31.5 L RDW 13.7 Plt Count 291 MPV 8.9 O2 Liters/Min Sodium 144 Potassium 3.3 L Chloride 108 H Carbon Dioxide 27 Anion Gap 9 BUN 7 L Creatinine 0.58 L Estim Creat Clear Calc 86 Estimated GFR > 60 Glucose 100 POC Capillary Glucose 97 Calcium 8.0 L Total Bilirubin 1.1 AST 29 ALT 19 Alkaline Phosphatase 65 Total Protein 7.0 Albumin 3.6 Vancomycin Trough 5.4 L 04/04/25 04/04/25 04/04/25 06:50 12:06 16:56 WBC RBC Hgb Hct MCV MCH MCHC RDW Plt Count MPV O2 Liters/Min Sodium Potassium Chloride Carbon Dioxide Anion Gap BUN Creatinine Estim Creat Clear Calc Estimated GFR Glucose POC Capillary Glucose 91 105 100 Calcium Total Bilirubin AST ALT Alkaline Phosphatase Total Protein Albumin Vancomycin Trough
[2025-04-04] MEDS: LACTATED RINGERS 1,000 ML 75 ML IV CONT (18:38)
--- NOTE | 2025-04-04 23:12 | PC.NURSE ---
Patient CT of abdomen completed to check for placement for further use (tube feedings on hold), Dr. Benitez with Hospitalist called and made aware. Dr. Benitez stated to notify GI. GI Earnestine Forte was called and made aware and stated will review CT in the morning and that if tube needs to be replaced he will not be able to because of the type of G-J tube device. Dr. Benitez called back to make aware that CT will not be reviewed until the morning and gave ok to hold Levaquin related to no tube use and npo status.
[2025-04-05] VITALS (10 sets, daily range): BP systolic 115–136; BP diastolic 71–86; PULSE 85–98; RESP 16–20; TEMP 36.1–36.8; O2SAT 94–96
[2025-04-05 00:19] LABS: Glucose Point of Care 90 mg/dl (65-105)
[2025-04-05 06:07] LABS: Glucose Point of Care 77 mg/dl (65-105)
[2025-04-05] MEDS: PANTOPRAZOLE SODIUM IV 40 MG VIAL IV PUSH ×2 (08:01→21:10)
--- NOTE | 2025-04-05 11:26 | PCNFU ---
Nutrition Follow-Up Complete: Inability to meet nutrition needs via po related to dysphagia as evidenced by need for tube feedings Goal:Meet estimated needs Pt slowly progressing to goal. Pt current nutrition is NPO, Tube feeding Jevity 1.5. Nutrition recommendation: resume tube feeds once cleared by GI for tube placement Last recorded weight is 44.7 kg. Bowel Motility: +BM 04/05 Labs Reviewed: Hgb:13, HCT:41.3, K:3.3, BUN:7, Cr:0.58 Meds Noted: novolog, protonix, lovenox Skin: WNL Additional Notes: Pt started on tube feeds yesterday, got to 30ml/hr and feedings were then held due to tube possibly not in correct placement. Recommend to resume tube feedings and advance to goal once placement is verified. Monitor tube feeding orders, tolerance, wt, labs. Follow up every Friday and Friday
--- NOTE | 2025-04-05 11:46 | P.PNIM_ITS ---
Progress Note: A&P Assessment and Plan (1) Sinus tachycardia: Code(s): R00.0 - Tachycardia, unspecified Status: Acute (2) Intussusception: Code(s): K56.1 - Intussusception Status: Acute (3) N&V (nausea and vomiting): Qualifiers: Vomiting type: unspecified Qualified Code(s): R11.2 - Nausea with vomiting, unspecified Code(s): R11.2 - Nausea with vomiting, unspecified Status: Acute (4) RACQUEL (acute kidney injury): Code(s): N17.9 - Acute kidney failure, unspecified Status: Acute (5) Lactic acidosis: Code(s): E87.20 - Acidosis, unspecified Status: Acute (6) UTI (urinary tract infection): Qualifiers: Urinary tract infection type: acute cystitis Hematuria presence: with hematuria Qualified Code(s): N30.01 - Acute cystitis with hematuria Code(s): N39.0 - Urinary tract infection, site not specified Status: Acute (7) Hematemesis: Code(s): K92.0 - Hematemesis Status: Acute Plan Hematemesis Continue monitoring H&H q.6 hours Transfuse due to symptomatic anemia Patient is nonverbal Patient is NPO PPI 40 mg IV b.i.d. GI evaluated and noted no Endoscopy for now Continue G tube feeding Sepsis 2/2 UTI Blood culture growing double GDouble coagulase negative staph, likely contaminants Possibly due to UTI Nasal MRSA positive s/p meropenem, metronidazole and vancomycin now on Levaquin Culture negative so far Clogged GJ tube GI recommends transfer as we do not have the type of tube for replacement Possible UTI Continue above care Pneumonia CXR showed bibasilar infiltrates Continue Levaquin monitor Tube feed Started on TPN Accuchecks Mild SSI RACQUEL resolved Intussusception Surgery reports incidental finding and no acute intervention recommends trophic feeds Surgery following DVT prophylaxis on SCDs Awaiting call back from [facility] for transfer Subjective Date/time seen: 04/05/25 11:46 Interval history: Clogged GJ tube Comfortable at bedside and awaitign transfer to higher level of care Review of Systems Review of Systems: ROS unobtainable: Yes unobtainable due to mental status Exam Narrative: APPEARANCE: No apparent distress. Head: atraumatic. EYES: EOMI, NOSE: Atraumatic NECK: Trachea midline RESPIRATORY: No increased rate of breathing CTAB CARDIOVASCULAR: Tachycardic ABDOMINAL: Nondistended, G-tube in place MUSCULOSKELETAl: Contractures in significant muscle wasting NEURO: Non verbal SKIN:: Warm, dry. Normal color Const: General: ill appearing and cachectic Nutritional Appearance: cachectic HENMT: Head: normal to inspection, normocephalic and atraumatic Eyes: General: appearance normal, both eyes and all related structures Neck: Neck: normal visual inspection and no lymphadenopathy Resp: Auscultation: clear to auscultation bilaterally Cardio: Rate: regular rate Rhythm: regular rhythm GI: Other: G tube C/D/I ostomy - +fxn Urinary Catheter: Urinary Catheter: urine cloudy Skin: General skin exam: normal color and no rashes or lesions noted Neuro: Other: Nonverbal Extrem: General: normal to inspection Objective Data Vital Signs Vital Signs: Vital Signs - 24 hr 04/04/25 12:00 04/04/25 14:00 04/04/25 16:00 Temperature 97.8 F Pulse Rate 107 H 98 104 H Respiratory Rate 18 Blood Pressure 123/82 Pulse Oximetry 95 Oxygen Delivery 04/04/25 20:00 04/04/25 20:00 04/04/25 21:25 Temperature 98.0 F Pulse Rate 91 101 H 91 Respiratory Rate 16 16 Blood Pressure 120/76 Pulse Oximetry 94 94 Oxygen Delivery Room Air 04/05/25 00:00 04/05/25 04:00 04/05/25 05:29 Temperature 98.2 F Pulse Rate 97 85 92 Respiratory Rate 16 Blood Pressure 115/76 Pulse Oximetry 94 Oxygen Delivery 04/05/25 08:00 Temperature Pulse Rate 93 Respiratory Rate Blood Pressure Pulse Oximetry Oxygen Delivery Intake/Output Intake/Output: Intake & Output 04/02/25 04/03/25 04/04/25 04/05/25 23:59 23:59 23:59 23:59 Intake Total 2300 1750 800 Output Total 800 100 600 Balance 2300 950 700 -600 Meds/Results Medications: Active Medications Generic Name Dose Route Start Last Admin Trade Name Freq PRN Reason Stop Dose Admin Dextrose 12.5 gm 04/02/25 18:18 Dextrose 50% 25 Gm/50 Ml Syringe IV PUSH PRN PRN Hypoglycemia Protocol Enoxaparin Sodium 40 mg 04/04/25 12:40 05/13/25 07:39 Enoxaparin 40 Mg/0.4 Ml Syringe SUB-Q Not Given DAILY FARZAD Glucagon 1 mg 04/02/25 18:18 Glucagon For Inj 1 Mg Vial IM PRN PRN Hypoglycemia Protocol Glucose 15 gm 04/02/25 18:18 Glucose Oral Gel 15 Gm Of Glucse In 37.5 Gm Tube PO PRN PRN Hypoglycemia Protocol Dextrose 1,000 mls @ 100 mls/hr 04/02/25 18:18 Dextrose 5% 1,000 Ml IVPB PRN PRN Hypoglycemia Protocol Lactated Ringer's 1,000 mls @ 75 mls/hr 04/04/25 18:35 04/04/25 18:38 Lr - Lactated Ringers Iv IV CONT 75 mls/hr .[id number] FARZAD Administration Insulin Aspart 0 units 04/03/25 00:00 04/05/25 06:10 Insulin Aspart (*Bkc) 100 Units/Ml SUB-Q Not Given Q6HR FARZAD Protocol Levofloxacin 750 mg 04/04/25 21:00 04/04/25 23:27 Levofloxacin 750 Mg Tablet PO 04/08/25 21:01 Not Given QHS FARZAD Pantoprazole Sodium 40 mg 04/02/25 21:00 04/05/25 08:01 Pantoprazole Sodium Iv 40 Mg Vial IV PUSH 40 mg Q12HR FARZAD Administration Perflutren Lipid Microsphere 0 ml 04/02/25 14:40 Perflutren Lipid Microspheres 1.5 Ml Vial Diluted To 10 Ml Total Volume IV PUSH 04/05/25 14:41 ONCE PRN adequate visualization Protocol Radiology Results: ITS Impressions Chest X-Ray 04/02/25 06:39 IMPRESSION: 1. Emphysema with bibasilar opacities which could represent atelectasis or pneumonia. Chest/Abdomen/Pelvis CT 04/02/25 07:26 IMPRESSION: 1. Stable appearance of severe bullous emphysema with chronic atelectasis/scarring at the bilateral lower lungs. 2. Proximal jejunal small bowel intussusception along a percutaneous gastrojejunostomy tube. 3. Small sliding-type hiatal hernia and diffuse mild wall thickening along the esophagus suggestive of reflux esophagitis related to reported nausea and vomiting. Abdomen X-Ray 04/04/25 17:49 IMPRESSION: Gastric tube apparently terminating over the stomach, without gastric filling. Small bowel contrast filling, without definite contrast extravasation, however this determination is limited by artifact. Recommend CT of the abdomen and pelvis without contrast to conclusively determined tube position and evaluate the scattered possibly artifactual hyperdensities. Abdomen/Pelvis CT 04/04/25 21:19 IMPRESSION: Large lower lobe bullae. Dependent atelectasis/consolidation. Esophagitis. GJ tube, in good position. Distorted cecal and adjacent small bowel anatomy, with loss of normal intervening fat planes, may represent adhesion/scarring. No bowel dilation to suggest obstruction. Fistulous connection is not excluded. Retained fecal material in the rectal vault. Possible cystitis. Labs Labs: Laboratory Results - last 24 hr 04/04/25 04/04/25 04/05/25 12:06 16:56 00:04 POC Capillary Glucose 105 100 90 04/05/25 06:04 POC Capillary Glucose 77
[2025-04-05 12:04] LABS: Glucose Point of Care 77 mg/dl (65-105)
[2025-04-05 17:47] LABS: Glucose Point of Care 109 mg/dl (65-105)
[2025-04-05] MEDS: levoFLOXacin 750 MG TABLET PO (21:10)
--- NOTE | 2025-04-05 23:31 | ECG_ITS ---
Test Date: 2025-04-05 23:43:18 Measurements Intervals [place] Rate: 92 P: 55 WI: 143 QRS: 58 QRSD: 78 T: 77 QT: 335 QTc: 416 Interpretive Statements SINUS RHYTHM NONSPECIFIC T WAVE ABNORMALITY Compared to ECG 04/02/2025 08:39:23 Sinus tachycardia no longer present Electronically Signed On 04-06-2025 11:55:54 CDT by Yodit Diallo M.D.
--- NOTE | 2025-04-05 23:37 | PC.NURSE ---
Addendum entered by Chloé Hilliard RN 04/06/25 00:21: Per. Dr. MOY, hold tube feeding at this time until AM and discuss with day shift about emesis. Original Note: Pt. has had 2 emesis of bile color liquid within the past 45 minutes. No residual noted from tube feeding with either emesis. Dr. MOY notified and stated to order an EKG as Pt. just stated Levaquin and order Zofran if QTc is normal.
[2025-04-05] MEDS: ONDANSETRON INJ 4 MG/2 ML VIAL IV PUSH (23:55)
[2025-04-06] VITALS (9 sets, daily range): BP systolic 109–119; BP diastolic 75–86; PULSE 75–116; RESP 16–18; TEMP 36–37.4; O2SAT 93–97
[2025-04-06 00:09] LABS: Glucose Point of Care 90 mg/dl (65-105)
--- NOTE | 2025-04-06 06:26 | PM.EVENT ---
Event Note Event Note Event Note: BC resulted Staph Hominis and epidermis. Will start Vancomycin and ID pharmacist will be consulted for further guidance.
[2025-04-06] MEDS: PANTOPRAZOLE SODIUM IV 40 MG VIAL IV PUSH ×2 (08:12→20:06)
[2025-04-06 09:07] LABS: Basophils Percent Auto 0.2 % (0.2-1.2); Eosinophils Absolute Auto 0.1 K/mm3 (0-0.3); Eosinophils Percent Auto 0.6 % (0-4.4); Hematocrit 48.3 % (42.0-52.0); Hemoglobin 14.3 g/dL (14.0-18.0); Immature Granulocyte Absolute 0.05 K/mm3 (0.00-0.031); Immature Granulocyte Percent A 0.4 % (0-0.5); Lymphocytes Absolute Auto 1.66 K/mm3 (0.9-3.2); Mean Corpuscular HGB Conc 29.6 g/dl (32-36); Mean Corpuscular Hemoglobin 27.5 pg (26-34); Mean Corpuscular Volume 92.9 fl (80-100); Mean Platelet Volume 9.1 fl (7.4-10.4); Neutrophils Absolute Auto 11.1 K/mm3 (1.3-6.7); Neutrophils Percent Auto 79.8 % (45.5-73.1); Platelet Count Result 307 k/mm3 (150-375); Red Cell Distribution Width 13.8 % (11.5-14.5); White Blood Count 13.9 K/mm3 (4.5-10.0)
[2025-04-06 10:52] LABS: Alanine Aminotransferase 19 U/L (6-50); Albumin Level 4.4 g/dL (3.5-5.1); Alkaline Phosphatase 70 U/L (38-126); Anion Gap 15 mmol/L (4-12); Aspartate Amino Transferase 29 U/L (17-59); Bilirubin,Total 0.7 mg/dL (0.2-1.3); Blood Urea Nitrogen 9 mg/dL (9-20); Calcium 8.9 mg/dL (8.4-10.2); Carbon Dioxide 26 mmol/L (22-30); Chloride 107 mmol/L (98-107); Estimated CRCL calculation 80 ml/min; Estimated Glomerular Filt Rate > 60; Glucose 89 mg/dL (65-110); Potassium 3.7 mmol/L (3.4-5.0); Sodium 148 mmol/L (137-145)
[2025-04-06 11:30] LABS: Glucose Point of Care 91 mg/dl (65-105)
[2025-04-06] MEDS: METOCLOPRAMIDE HCL INJ 10 MG/2 ML VIAL 5 MG IV PUSH ×2 (12:25→17:26)
[2025-04-06] MEDS: DEXTROSE 5%/0.9% SOD CHL 1,000 ML 75 ML IV CONT (14:17)
--- NOTE | 2025-04-06 14:32 | P.PNIM_ITS ---
Progress Note: A&P Assessment and Plan (1) Sinus tachycardia: Code(s): R00.0 - Tachycardia, unspecified Status: Acute (2) Intussusception: Code(s): K56.1 - Intussusception Status: Acute (3) N&V (nausea and vomiting): Qualifiers: Vomiting type: unspecified Qualified Code(s): R11.2 - Nausea with vomiting, unspecified Code(s): R11.2 - Nausea with vomiting, unspecified Status: Acute (4) RACQUEL (acute kidney injury): Code(s): N17.9 - Acute kidney failure, unspecified Status: Acute (5) Lactic acidosis: Code(s): E87.20 - Acidosis, unspecified Status: Acute (6) UTI (urinary tract infection): Qualifiers: Urinary tract infection type: acute cystitis Hematuria presence: with hematuria Qualified Code(s): N30.01 - Acute cystitis with hematuria Code(s): N39.0 - Urinary tract infection, site not specified Status: Acute (7) Hematemesis: Code(s): K92.0 - Hematemesis Status: Acute Plan Hematemesis Continue monitoring H&H q.6 hours Transfuse due to symptomatic anemia Patient is nonverbal Patient is NPO PPI 40 mg IV b.i.d. GI evaluated and noted no Endoscopy for now Continue G tube feeding Sepsis 2/2 UTI Blood culture growing double GDouble coagulase negative staph, likely contaminants Possibly due to UTI Nasal MRSA positive s/p meropenem, metronidazole and vancomycin now on Levaquin Culture negative so far Malfunctioning GJ tube GI recommends transfer as we do not have the type of tube for replacement Investigating the original facility where patient had it done intially currently on IVF monitor E coli UTI On Levaquin Continue above care Pneumonia CXR showed bibasilar infiltrates Continue Levaquin monitor Tube feed on IVF Accuchecks Mild SSI RACQUEL resolved Intussusception Surgery reports incidental finding and no acute intervention not tolerating feeds SB series orderd Surgery following DVT prophylaxis on Sq Lovenox Awaiting call back from [facility] Subjective Date/time seen: 04/06/25 14:32 Interval history: GJ malfunction , patient vomiting and tolerating GJ today GI recommends transfer to facility where patient had it done originally. Review of Systems Review of Systems: ROS unobtainable: Yes unobtainable due to mental status Exam Narrative: APPEARANCE: No apparent distress. Head: atraumatic. EYES: EOMI, NOSE: Atraumatic NECK: Trachea midline RESPIRATORY: No increased rate of breathing CTAB CARDIOVASCULAR: Tachycardic ABDOMINAL: Nondistended, G-tube in place MUSCULOSKELETAl: Contractures in significant muscle wasting NEURO: Non verbal SKIN:: Warm, dry. Normal color Const: General: ill appearing and cachectic Nutritional Appearance: cachectic HENMT: Head: normal to inspection, normocephalic and atraumatic Eyes: General: appearance normal, both eyes and all related structures Neck: Neck: normal visual inspection and no lymphadenopathy Resp: Auscultation: clear to auscultation bilaterally Cardio: Rate: regular rate Rhythm: regular rhythm GI: Other: G tube C/D/I ostomy - +fxn Urinary Catheter: Urinary Catheter: urine cloudy Skin: General skin exam: normal color and no rashes or lesions noted Neuro: Other: Nonverbal Extrem: General: normal to inspection Objective Data Vital Signs Vital Signs: Vital Signs - 24 hr 04/05/25 16:00 04/05/25 20:00 04/05/25 20:00 Temperature Pulse Rate 97 93 Respiratory Rate Blood Pressure Pulse Oximetry Oxygen Delivery Room Air 04/05/25 20:15 04/05/25 23:35 04/06/25 00:00 Temperature 97 F L Pulse Rate 96 104 H Respiratory Rate 20 Blood Pressure 136/86 Pulse Oximetry 96 96 Oxygen Delivery Room Air 04/06/25 04:00 04/06/25 04:40 04/06/25 08:00 Temperature 96.8 F L Pulse Rate 95 101 H Respiratory Rate 16 Blood Pressure 116/79 Pulse Oximetry 93 Oxygen Delivery Room Air 04/06/25 14:00 Temperature 98.7 F Pulse Rate 75 Respiratory Rate 16 Blood Pressure 119/86 Pulse Oximetry 95 Oxygen Delivery Intake/Output Intake/Output: Intake & Output 04/03/25 04/04/25 04/05/25 04/06/25 23:59 23:59 23:59 23:59 Intake Total 1750 800 212 0 Output Total 800 100 600 Balance 950 700 -388 0 Meds/Results Medications: Active Medications Generic Name Dose Route Start Last Admin Trade Name Freq PRN Reason Stop Dose Admin Dextrose 12.5 gm 04/02/25 18:18 Dextrose 50% 25 Gm/50 Ml Syringe IV PUSH PRN PRN Hypoglycemia Protocol Enoxaparin Sodium 40 mg 04/04/25 12:40 04/06/25 08:12 Enoxaparin 40 Mg/0.4 Ml Syringe SUB-Q Not Given DAILY FARZAD Glucagon 1 mg 04/02/25 18:18 Glucagon For Inj 1 Mg Vial IM PRN PRN Hypoglycemia Protocol Glucose 15 gm 04/02/25 18:18 Glucose Oral Gel 15 Gm Of Glucse In 37.5 Gm Tube PO PRN PRN Hypoglycemia Protocol Dextrose 1,000 mls @ 100 mls/hr 04/02/25 18:18 Dextrose 5% 1,000 Ml IVPB PRN PRN Hypoglycemia Protocol Dextrose/Sodium Chloride 1,000 mls @ 75 mls/hr 04/06/25 13:20 04/06/25 14:17 Dextrose 5% Sodium Chloride 0.9% IV CONT 75 mls/hr .[id number] FARZAD Administration Insulin Aspart 0 units 04/03/25 00:00 04/06/25 11:31 Insulin Aspart (*Bkc) 100 Units/Ml SUB-Q Not Given Q6HR [facility] Protocol Levofloxacin 750 mg 04/04/25 21:00 04/05/25 21:10 Levofloxacin 750 Mg Tablet PO 04/08/25 21:01 750 mg QHS FARZAD Administration Metoclopramide HCl 5 mg 04/06/25 12:00 04/06/25 12:25 Metoclopramide Hcl Inj 10 Mg/2 Ml Vial IV PUSH 5 mg Q6HR FARZAD Administration Ondansetron HCl 4 mg 04/05/25 23:51 04/05/25 23:55 Ondansetron Inj 4 Mg/2 Ml Vial IV PUSH 4 mg Q6H PRN Administration Nausea And Vomiting Pantoprazole Sodium 40 mg 04/02/25 21:00 04/06/25 08:12 Pantoprazole Sodium Iv 40 Mg Vial IV PUSH 40 mg Q12HR FARZAD Administration Radiology Results: ITS Impressions Chest X-Ray 04/02/25 06:39 IMPRESSION: 1. Emphysema with bibasilar opacities which could represent atelectasis or pneumonia. Chest/Abdomen/Pelvis CT 04/02/25 07:26 IMPRESSION: 1. Stable appearance of severe bullous emphysema with chronic atelectasis/scarring at the bilateral lower lungs. 2. Proximal jejunal small bowel intussusception along a percutaneous gastrojejunostomy tube. 3. Small sliding-type hiatal hernia and diffuse mild wall thickening along the esophagus suggestive of reflux esophagitis related to reported nausea and vomiting. Abdomen X-Ray 04/04/25 17:49 IMPRESSION: Gastric tube apparently terminating over the stomach, without gastric filling. Small bowel contrast filling, without definite contrast extravasation, however this determination is limited by artifact. Recommend CT of the abdomen and pelvis without contrast to conclusively determined tube position and evaluate the scattered possibly artifactual hyperdensities. Abdomen/Pelvis CT 04/04/25 21:19 IMPRESSION: Large lower lobe bullae. Dependent atelectasis/consolidation. Esophagitis. GJ tube, in good position. Distorted cecal and adjacent small bowel anatomy, with loss of normal intervening fat planes, may represent adhesion/scarring. No bowel dilation to suggest obstruction. Fistulous connection is not excluded. Retained fecal material in the rectal vault. Possible cystitis. Labs Labs: Laboratory Results - last 24 hr 04/05/25 04/06/25 04/06/25 17:42 00:05 08:52 WBC 13.9 H RBC 5.20 Hgb 14.3 Hct 48.3 MCV 92.9 D MCH 27.5 MCHC 29.6 L RDW 13.8 Plt Count 307 MPV 9.1 Immature Gran % (Auto) 0.4 Neut % (Auto) 79.8 H Lymph % (Auto) 12.0 L Dyer % (Auto) 7.0 Eos % (Auto) 0.6 Baso % (Auto) 0.2 Lymph # (Auto) 1.66 Dyer # (Auto) 1.0 H Eos # (Auto) 0.1 Baso # (Auto) 0.0 Abs Immat Gran (auto) 0.05 H Absolute Neuts (auto) 11.1 H Absolute Nucleated RBC 0.000 Nucleated RBC % 0.0 Sodium Potassium Chloride Carbon Dioxide Anion Gap BUN Creatinine Estim Creat Clear Calc Estimated GFR Glucose POC Capillary Glucose 109 H 90 Calcium Total Bilirubin AST ALT Alkaline Phosphatase Total Protein Albumin 04/06/25 04/06/25 10:34 11:15 WBC RBC Hgb Hct MCV MCH MCHC RDW Plt Count MPV Immature Gran % (Auto) Neut % (Auto) Lymph % (Auto) Dyer % (Auto) Eos % (Auto) Baso % (Auto) Lymph # (Auto) Dyer # (Auto) Eos # (Auto) Baso # (Auto) Abs Immat Gran (auto) Absolute Neuts (auto) Absolute Nucleated RBC Nucleated RBC % Sodium 148 H Potassium 3.7 Chloride 107 Carbon Dioxide 26 Anion Gap 15 H BUN 9 Creatinine 0.63 L Estim Creat Clear Calc 80 Estimated GFR > 60 Glucose 89 POC Capillary Glucose 91 Calcium 8.9 Total Bilirubin 0.7 AST 29 ALT 19 Alkaline Phosphatase 70 Total Protein 9.0 H Albumin 4.4
[2025-04-06 17:29] LABS: Glucose Point of Care 108 mg/dl (65-105)
--- NOTE | 2025-04-06 18:37 | PC.NURSE ---
Patient accepted at [facility] into room 7[address] at [place] Accept[address] doctor Dr. Leon. Number to call report [phone]. TARYN Ruiz at [facility] unable to take report at this time due to room not being cleaned yet. RN requested that report be called after 19:00. drill press operator helper notified.
--- NOTE | 2025-04-06 20:28 | PC.NURSE ---
Report called to Tima Schaeffer RN at [facility] on . Pt. going to room 748.
--- NOTE | 2025-04-07 12:12 | P.TS_ITS ---
Transfer Discharge Sum: Prov Provider Date of admission: 04/03/25 14:00 Primary care physician: Thomas Bowden, Admitting clinician: Lul Thomason MD Consults: 04/02/25 09:50 Consult to Physician Routine Comment: Consulting Provider: Minnie Perez Reason for consultation: SMALL-BOWEL INTUSSUSCEPTION Has provider been notified: Yes 04/02/25 11:57 Consult to Physician Routine Comment: spoke to dr @[id number] (,) Consulting Provider: Suleman Mei call out clerk/MD group to consult: GI Reason for consultation: GI bleed Has provider been notified: Yes 04/03/25 Consult to Dietitian Routine Reason for Consult:: ok to advance tube feeding DS: Admitting Diagnosis Discharge Date 04/06/25 Admitting Diagnosis Hematemesis and sepsis DS: Discharge Diagnosis Discharge Diagnosis (1) Hematemesis: Code(s): K92.0 - Hematemesis Status: Acute (2) Intussusception: Code(s): K56.1 - Intussusception Status: Acute (3) Urinary tract infection associated with catheterization of urinary tract: Code(s): T83.511A - Infection and inflammatory reaction due to indwelling urethral catheter, initial encounter; N39.0 - Urinary tract infection, site not specified Status: Acute (4) Sepsis: Qualifiers: Sepsis type: sepsis due to unspecified organism Sepsis acute organ dysfunction status: without acute organ dysfunction Qualified Code(s): A41.9 - Sepsis, unspecified organism Code(s): A41.9 - Sepsis, unspecified organism Status: Acute Transfer Discharge Sum: Med Medications Active and Home Medications: Home Medications famotidine 20 mg tablet 20 mg feeding tube Q12HR 30 days #60 tabs 11/08/22 [Rx Confirmed 04/02/25] polyethylene glycol 3350 17 gram/dose oral powder (Miralax) 17 g feeding tube DAILY 01/09/24 [History Confirmed 04/02/25] sennosides 8.6 mg-docusate sodium 50 mg tablet (Senna Plus) 1 tablet PO Q12H 01/09/24 [History Confirmed 04/02/25] promethazine 12.5 mg tablet 12.5 mg feeding tube DAILY PRN nausea and vomiting 11/05/24 [History Confirmed 04/02/25] levofloxacin 750 mg tablet 750 mg PO DAILY 4 days #4 tabs 03/24/25 [Rx Confirmed 04/02/25] tamsulosin 0.4 mg capsule 0.4 mg PO QHS #30 caps 03/24/25 [Rx Confirmed 04/02/25] ondansetron 4 mg disintegrating tablet 4 mg PO Q8H PRN nausea and vomiting #14 tabs 03/28/25 [Rx Confirmed 04/02/25] Transfer Discharge Sum: Hosp Hospital Course Hospital course: Ricky Swanson is a 44 year old male with a past medical history of autism with chronic nonverbal state, 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 Patient has mental disability and nonverbal. Patient had a previous emergent colectomy with end colostomy. Pertinent ED labs: WBC 29.4, hemoglobin dropped from 17.7-14.7, hematocrit dropped from 56.5-46.2, platelet 461, sodium 144, potassium 3.8, anion gap 28, creatinine 1.5, glucose 140, lactic acid decreased from 3.5-1.5, TSH 4.9 Chest/abdomen/pelvis CT :shows stable appearance of several bullous emphysema with chronic atelectasis/scarring at the bilateral lower lung. Proximal jejunal small bowel intussusception along a percutaneous gastrojejunostomy tube. Small sliding type hiatal hernia and diffuse mild wall thickening along the esophagus suggestive of reflux esophagitis related to reported nausea and vomiting. Gen surgery was consulted and they evaluated and no intussusception. patient was allowed to restart GJ tube feeding GI was consulted and they evaluated and no EGD was recommended. However patient was restarted on tueb feeding which he did not tolerate despite been placed on Reglan. repeat SBO showed no sbo obstruction. Nurse suspected GJ tube malfunction and GI with reconsulted and he recommended to transfer to higher level of care as they are not familiar with the type of GJ tube that patient has. Managed for UTI with sepsis, urine culture positive for E coli sensitive to LEvaquin. Blood culture grew double CoNS which is indicative of contaminant as patient's V/S remained stable adn leukocytosis continues to improve. Thus patient was transferred to [facility] for higher level of care Patient was stable on transfer Time Spent with Patient Time attestation: Total time spent providing and/or coordinating transfer services: DS: Data Data Completed and Pending Labs on day of discharge: Labs from last 24 hours 04/06/25 17:27 POC Capillary Glucose 108 H
== END 2025-04-06 21:00 | disposition short-term general hospital (02) | DRG 466 ==
LOC: ANHED 08:03 → ANH3MEDSUR 12:06
PROVIDERS: Emergency Medicine; Admitting Provider General Practice; Emergency Provider Emergency Medicine; PCP Internal Medicine; Visit Provider Internal Medicine
DX: T83.511A Infection and inflammatory reaction due to indwelling urethral catheter, initial encounter (principal); K56.1 Intussusception; K92.0 Hematemesis; K94.23 Gastrostomy malfunction; N17.9 Acute kidney failure, unspecified; R00.0 Tachycardia, unspecified; E87.20 Acidosis, unspecified; F84.0 Autistic disorder; F81.89 Other developmental disorders of scholastic skills; Z20.822 Contact with and (suspected) exposure to COVID-19; Z93.3 Colostomy status; Z22.322 Carrier or suspected carrier of Methicillin resistant Staphylococcus aureus
CPT/HCPCS: 36415; 71045; 71260; 74019; 74176; 74177; 80053; 80202; 82803; 82948; 83605; 83690; 83735; 84100; 84439; 84443; 84480; 84484; 85014; 85018; 85025; 85027; 85610; 85730; 86850; 86900; 86901; 87040; 87181; 87637; 87641; 93005; 96361; 96365; 96366; 96367; 96372; 96375; 99285; A9270; G0378; G0379; J1630; J1836; J2060; J2185; J2405; J2470; J2765; J3370; J7030; J7042; J7070; J7120; Q9967

== ENCOUNTER 2025-06-16 10:11 | Emergency (ER) | payer OTHER, SELFPAY ==
--- NOTE | ~2025-06-16 | XR_ITS ---
XR abdomen gastric tube insert 06/16/2025 12:00 Indication: G-tube position assessment Procedure: Injection of radiopaque contrast administered into the gastric tube Comparison: 05/27/2024 Findings: Contrast opacification the stomach without evidence for extravasation. Impression: 1: Appropriate location of gastric tube without evidence for contrast extravasation. Reviewed, dictated and finalized at location A. Impression: 1: Appropriate location of gastric tube without evidence for contrast extravasa tion.
[2025-06-16 10:13] VITALS: BP 127/103; PULSE 106; RESP 18; TEMP 36.6; O2SAT 95
--- NOTE | 2025-06-16 10:37 | ED.GENADULT ---
HPI - General Adult General Chief complaint: Unspecified Stated complaint: gtube pulled out Time Seen by Provider: 06/16/25 10:29 Source: patient and EMS Mode of arrival: EMS Limitations: other (patient is nonverbal) History of Present Illness HPI narrative: Patient presents emergency department after pulling out his G-tube last night. They were not able to replace it this morning. Cannot obtain any history from the patient. He appears to be in no distress. Related Data Home Medications ?Medication ?Instructions ?Recorded ?Confirmed ?Last Taken ?Type polyethylene glycol 3350 17 17 g feeding tube DAILY 01/09/24 04/02/25 03/19/25 07:15 History gram/dose oral powder (Miralax) sennosides 8.6 mg-docusate sodium 1 tablet PO Q12H 01/09/24 04/02/25 03/19/25 07:15 History 50 mg tablet (Senna Plus) promethazine 12.5 mg tablet 12.5 mg feeding tube DAILY PRN 09/28/24 04/02/25 Unknown History nausea and vomiting Allergies Allergy/AdvReac Type Severity Reaction Status Date / Time No Known Allergies Allergy Verified 03/19/25 17:19 Review of Systems Review of Systems: All systems reviewed & are unremarkable except as noted in HPI and below PMFSH Past Medical History Medical History (Updated 06/16/25 @ 12:06 by Radha Valdes PA-C) Coffee ground emesis Chronic indwelling Cardona catheter Cognitive developmental delay Autism Surgical History Surgical History History of gastrostomy tube placement History of exploratory laparotomy (09/2022) Exploratory laparotomy with sigmoid colon resection and colostomy for ischemic bowel. Complicated by septic shock and respiratory failure requiring intubation Family History Family History Other Family history unknown Social History Social History Social History: Patient lives in [place] at [facility] Surrogate medical decision maker: Man Swanson, father or Samia Hale, sister. Code status: Full code. Smoking status: Never smoker Second hand tobacco smoke exposure: No Alcohol intake: unknown Substance use: unknown Substance use type: unknown Additional living arrangements comments: Resident at [facility]. Spiritual care concerns: No Exam Narrative: GENERAL: Well-appearing, well-nourished, and in no acute distress. HEAD: Normocephalic, atraumatic. EYES: EOMI. CHEST: Clear to auscultation. No respiratory distress. No wheezes rales or rhonchi HEART: Regular rate and rhythm. No murmur heard. Normal peripheral pulses. ABDOMEN: Soft, nontender, nondistended, normal active bowel sounds. Colostomy present in the left lower quadrant EXTREMITIES: Normal range of motion. No edema. SKIN: Warm, dry, no rash. NEURO: No focal deficits. Alert and oriented x3. PSYCH: Normal mood and affect Course Vital Signs Vital signs: Vital Signs Temperature 97.9 F 06/16/25 10:13 Pulse Rate 106 H 06/16/25 10:13 Respiratory Rate 18 06/16/25 10:13 Blood Pressure 127/103 H 06/16/25 10:13 Pulse Oximetry 95 06/16/25 10:13 Oxygen Delivery Room Air 06/16/25 10:13 Temperature 97.9 F 06/16/25 10:13 Pulse Rate 98 06/16/25 10:57 Respiratory Rate 16 06/16/25 10:57 Blood Pressure 122/90 06/16/25 10:57 Pulse Oximetry 97 06/16/25 10:57 Oxygen Delivery Room Air 06/16/25 10:13 Medical Decision Making [facility] Narrative Medical decision making narrative: Patient presents to the emergency department after pulling out his G-tube. This was successfully replaced. X-ray confirming location. He is to follow up with his GI doctor Vital Signs Vital Signs: Vital Signs Temperature 97.9 F 06/16/25 10:13 Pulse Rate 106 H 06/16/25 10:13 Respiratory Rate 18 06/16/25 10:13 Blood Pressure 127/103 H 06/16/25 10:13 Pulse Oximetry 95 06/16/25 10:13 Oxygen Delivery Room Air 06/16/25 10:13 Temperature 97.9 F 06/16/25 10:13 Pulse Rate 98 06/16/25 10:57 Respiratory Rate 16 06/16/25 10:57 Blood Pressure 122/90 06/16/25 10:57 Pulse Oximetry 97 06/16/25 10:57 Oxygen Delivery Room Air 06/16/25 10:13 Imaging Data Radiologist's impression: ITS Impressions Abdomen X-Ray 06/16/25 12:01 Impression: 1: Appropriate location of gastric tube without evidence for contrast extravasation. Critical Care Time Critical Care Time Critical Care Time: No Discharge Plan Discharge Clinical Impression: Gastrostomy tube dysfunction Patient Disposition: NH Correction/Asst Living Condition: Stable Additional Instructions: Return to the ER if you experience fever, abdominal pain with nausea and vomiting, or any other symptoms that are concerning to you Follow up with your factory hand Patient Language: Irish Prescriptions: No Action famotidine 20 mg Tablet 20 mg feeding tube Q12HR 30 Days Qty: 60 0RF ondansetron 4 mg tablet,disintegrating 4 mg PO Q8H PRN (Reason: nausea and vomiting) Qty: 14 0RF sennosides-docusate sodium [Senna Plus] 8.6-50 mg Tablet 1 tablet PO Q12H polyethylene glycol 3350 [Miralax] 17 gram/dose Powder 17 g feeding tube DAILY promethazine 12.5 mg tablet 12.5 mg feeding tube DAILY PRN (Reason: nausea and vomiting) tamsulosin 0.4 mg Capsule 0.4 mg PO QHS Qty: 30 0RF levofloxacin 750 mg tablet 750 mg PO DAILY 4 Days Qty: 4 0RF Follow-up/Referrals: Kal,MD Thomas [Primary Care Provider] - Stand Alone Forms: [facility]fp Discharge
--- OUTSIDE RECORDS SUMMARY | 2025-06-16 10:43 | XMS_ITS | Clinical Summary ---
Author Organization [facility] [employer] Address [address] [place] [address] Care Team Providers Care Port Engineer Name Role Phone Harmony Palma MD Primary Care Provider [phone] Source Comments [facility],non-owned Affiliates and Associated Physician Practices is amultiple site organization consisting of ambulatory clinics and hospital sitesin [place], [place], [place] and [place]. This disclosure is being madepursuant to the Care Everywhere program and may not contain all information available regarding this patient. Last updated 18.[facility] [employer] Allergies No known active allergies Medications * Be aware that medications may not be up to date on this document. Alwaysverify current medications with the patient. famotidine (Pepcid) 20 MG tablet 1 (one) tablet by Enteral Tube route 2 times daily 5 Active ondansetron, disintegrating, (Zofran ODT) 4 MG tablet Take 1 (one) tablet by mouth every 8 hours as needed for Nausea/Vomiting 5 Active promethazine (Phenergan) 12.5 MG tablet Take 1 (one) tablet by mouth once daily as needed for Nausea/Vomiting 4 Active tamsulosin (Flomax) 0.4 MG capsule Take 1 (one) capsule by mouth once daily 5 Active polyethylene glycol 3350 (Miralax) 17 g packet 17 (seventeen) g by Enteral Tube route once daily Active Sennosides-Docus ate Sodium (Senna-Docusate Sodium) 8.6-50 MG Take 1 (one) tablet by mouth 2 times daily Active Nutritional Supplements (Nutritional Supplement Plus) LIQD Take 1 container by mouth 2 times daily Your Registered Dietitian recommends that you continue an oral nutrition supplement 2x daily for 30 days after discharge. High Calorie High Protein Supplement Examples: Ensure Enlive/Ensure Plus High Protein/Boost Plus/Equate Plus Active albuterol HFA (Proventil; Ventolin; Proair) 108 (90 Base) MCG/ACT inhaler Inhale 2 (two) puffs by mouth every 4 hours as needed for Shortness of Breath or Wheezing 5 Active budesonide-formo terol (Symbicort) 160-4.5 MCG/ACT inhaler Inhale 2 (two) puffs by mouth 2 times daily 5 Active Active Problems Problem Noted Date Diagnosed Date Intussusception 04/07/2025 Cystitis 04/07/2025 Gastroesophageal reflux dise ase with esophagitis without hemorrhage 04/07/2025 Other emphysema 04/07/2025 Malfunction of gastrostomy tube 04/06/2025 Encounters Date Type Department Care Team Description 04/12/2025 9:27 AM CDT - 04/12/2025 11:59 PM CDT Hospital Encounter [facility] - Outside Imaging Discharge Disposition: Home or Self Care 04/11/2025 2:41 PM CDT - 04/11/2025 3:11 PM CDT Surgery [facility] [place] [address] Alanis Pinto DO EGD 04/11/2025 1:59 PM CDT Anesthesia Event [facility] [address] [place] [address] Nancy Nolan MD 04/07/2025 Travel 04/06/2025 10:03 PM CDT - 04/13/2025 9:48 PM CDT Hospital Encounter [facility] [address] [place] [phone] Curt Leon MD Fritz, Adam, MD Hoque, Farzana, MD Hospitalist Discharge Disposition: Assisted Acute Care 04/06/[address] [facility] [address] [place] [address] Curt Leon MD General (Evaluation for transfer to [facility] ) from Last 3 Months Social History Tobacco Use Types Packs/Day Years Used Date Smoking Tobacco: Unknown Tobacco Cessation:Counseling Given: Not Answered AUDIT-C Answer Date Recorded Q1: How often do you have a drink containing alcohol? Patient unable to answer 04/07/2025 Q2: How many drinks containi ng alcohol do you have on a typical day when you are drinking? Patient unable to answer Q3: How often do you have si x or more drinks on one occasion? Patient unable to answer 04/07/2025 Overall Financial Resource Strain (CARDIA) Answe r Date Recorded How hard is it for you to pa y for the very basics like food, housing, medical care, and heating? Patient unable to answer 04/07/2025 [facility] - Occupational Stress Questionnaire Answer Date Recorded Do you feel stress - tense, restless, nervous, or anxious, or unable to sleep at night because your mind is troubled all the time - these days? Patient unable to answer 04/07/2025 Hunger Vital Sign Answer Date Recorded Within the past 12 months, y ou worried that your food would run out before you got the money to buy more. Patient unable to answer 04/07/2025 Within the past 12 months, t he food you bought just didn't last and you didn't have money to get more. Patient unable to answer 04/07/2025 PRAPARE - Transportation Answer Date Re corded In the past 12 months, has l ack of transportation kept you from medical appointments or from getting medications? Patient unable to answer 04/07/2025 In the past 12 months, has l ack of transportation kept you from meetings, work, or from getting things needed for daily living? Patient unable to answer 04/07/2025 Housing Stability Vital Sign Answer Scott e Recorded In the last 12 months, was t here a time when you were not able to pay the mortgage or rent on time? Patient unable to answer 04/07/2025 Number of Times Moved in the Last Year Not on fi le 04/07/2025 At any time in the past 12 m [facility], were you homeless or living in a long-term (including now)? Patient unable to answer 04/07/2025 Sex and Gender Information Value Date Recorded Sex Assigned at Not on file Legal Sex Male 1:32 PM [employer] Gender Identity Not on file Sexual Orientation Not on file Last Filed Vital Signs Vital Sign Reading Time Taken Comments Blood Pressure 110/88 04/13/2025 8:55 PM CDT Pulse 93 04/13/2025 8:55 PM CDT Temperature 35.8 C (96.4 F) 04/13/2025 8:55 PM CDT Respiratory Rate 18 04/13/2025 8:55 PM CDT Oxygen Saturation 96% 04/13/2025 8:5 5 PM CDT Inhaled Oxygen Concentration - - Weight 43.5 kg (96 lb) 04/07/2025 3:23 PM CDT Height 149.9 cm (4' 11.02) 04/07/2025 3:23 PM CDT per Care Everywhere Body Mass Index 19.38 04/07/2025 3:23 PM CDT Plan of Treatment Upcoming Encounters Date Type Department Care Team (Late st Contact Info) Description 08/25/2025 8:30 AM CDT Office Visit [facility] - GI [address] [facility] [place] [phone] Virginia Jacobs MD [address] [place] [address] [facility] [place] [address] Health Maintenance Due Date Last Done Comments COLOGUARD (AGES 45-75) - COL ON CA SCREENING 1980 COLON MONITORING 1979 COLONOSCOPY - COLON CA SCREENING 1979 CT COLONOGRAPHY - COLON CA SCREENING 1979 Colorectal Cancer Screening 1979 FIT - COLON CA SCREENING 1979 FLEX SIG - COLON CA SCREENING 1979 HIV SCREENING 1994 HEPATITIS C SCREENING 08/29/1997 DTAP/TDAP/TD VACCINES (1 - Tdap) 1998 HEPATITIS B VACCINE (1 of 3 - 19+ 3-dose series) 1998 PNEUMOCOCCAL VACCINE (1 of 2 - PCV) 1998 HPV VACCINE (1 - 3-dose SCDM series) 2006 COVID-19 VACCINE (2023-2 5 season) 2024 DEPRESSION SCREENING 11/24/2024 INFLUENZA VACCINE (#1) 2025 LIPID TESTING 03/05/2027 03/05/2022 ZOSTER VACCINE (1 of 2) 2029 HIB VACCINE Aged Out No longer eligi ble based on patient's age to complete this topic MENINGOCOCCAL (Group B) VACC INE SHARED DECISION-MAKING Aged Out No longer eligibl e based on patient's age to complete this topic MENINGOCOCCAL GROUPS A/C/Y/W VACCINE Aged Out No longer eligible b ased on patient's age to complete this topic Procedures Procedure Name Priority Date/Time Associated Diagnosis Comments RENAL FUNCTION PANEL Routine 04/13/2025 2:41 PM CDT MAGNESIUM BLOOD Routine 04/13/2025 2:41 PM CDT FL SWALLOWING FUNCTION STUDY Routine 04/13/2025 10:54 AM CDT Intussusception (HCC) CBC W/O DIFFERENTIAL AM Draw 04/13/2025 3:10 AM CDT RENAL FUNCTION PANEL AM Draw 04/13/2025 3:10 AM CDT MAGNESIUM BLOOD Routine 04/13/2025 3:10 AM CDT XR ABDOMEN KUB PORTABLE STAT 04/12/2025 2:59 PM CDT Malfunction of gastrostomy tube (HCC) RENAL FUNCTION PANEL AM Draw 04/12/2025 2:07 AM CDT MAGNESIUM BLOOD Routine 04/12/2025 2:07 AM CDT CBC W/O DIFFERENTIAL Routine 04/12/2025 2:07 AM CDT ENDOTRACHEAL TUBE NOTE Routine 2:16 PM CDT EGD Routine 04/11/2025 2:03 PM CDT GA ED EGD FLEX TRANSORAL DX 04/11/2025 1:54 PM CDT Intussusception (HCC) EKG 12-LEAD STAT 04/11/2025 9:08 AM CDT Gastroesophageal reflux disease with esophagitis without hemorrhage RENAL FUNCTION PANEL AM Draw 04/11/2025 1:04 AM CDT MAGNESIUM BLOOD Routine 04/11/2025 1:04 AM CDT CBC W/O DIFFERENTIAL Routine 04/11/2025 1:04 AM CDT RENAL FUNCTION PANEL AM Draw 04/10/2025 1:38 AM CDT MAGNESIUM BLOOD Routine 04/10/2025 1:38 AM CDT CBC W/O DIFFERENTIAL Routine 04/10/2025 1:38 AM CDT GLUCOSE - POINT OF CARE Routine 04/09/2025 8:33 AM CDT MAGNESIUM BLOOD Routine 04/09/2025 3:31 AM CDT CBC W/O DIFFERENTIAL Routine 04/09/2025 3:31 AM CDT RENAL FUNCTION PANEL Routine 04/09/2025 3:31 AM CDT RENAL FUNCTION PANEL AM Draw 04/08/2025 6:09 AM CDT MAGNESIUM BLOOD Routine 04/08/2025 6:09 AM CDT CBC W/O DIFFERENTIAL Routine 04/08/2025 6:09 AM CDT RENAL FUNCTION PANEL Routine 04/07/2025 7:12 PM CDT URINALYSIS REFLEX MICROSCOPIC REFLEX CULTURE Routine 04/07/2025 5:24 AM CDT CULTURE URINE Routine 04/07/2025 5:[address] CHEST ABDOMEN PELVIS W CONT STAT 04/07/2025 4:21 AM CDT Malfunction of gastrostomy tube (HCC) PHOSPHORUS BLOOD Routine 04/07/2025 2:25 AM CDT MAGNESIUM BLOOD Routine 04/07/2025 2:25 AM CDT CBC W AUTO DIFFERENTIAL STAT 04/07/2025 2:25 AM CDT COMPREHENSIVE METABOLIC PANEL STAT 04/07/2025 2:25 AM CDT PT-INR H STAT 04/07/2025 2:25 AM CDT LACTIC ACID BLOOD STAT 04/07/2025 2:2 5 AM CDT CULTURE BLOOD Routine 04/07/2025 2:25 AM CDT CULTURE BLOOD Routine 04/07/2025 2:14 AM CDT XR CHEST OUTSIDE Routine 04/02/2025 4:00 PM CDT from Last 3 Months Results * (ABNORMAL) RENAL FUNCTION PANEL (04/13/2025 2:41 PM CDT) Only the most recent of8 resultswithin the time period is included. BUN <5(L) 7 - 26 mg/dL 04/13/2025 4:21 PM CDT [facility] Creatinine 0.60(L) 0.71 - 1.16 mg/dL 04/13/2025 4:21 PM CDT [facility] Sodium 139 136 - 145 mmol/L 04/13/2025 4:21 PM CDT [facility] Potassium 4.2 3.5 - 4.5 mmol/L 04/13/2025 4:21 PM CDT [facility] Chloride 107 98 - 107 mmol/L 04/13/2025 4:[address] [facility] CO2 24 22 - 29 mmol/L 04/13/2025 4:[address] [facility] Glucose 108(H) 70 - 99 mg/dL 04/13/2025 4:[address] [facility] Albumin 3.2(L) 3.4 - 5.0 g/dL 04/13/2025 4:[address] [facility] Calcium 8.3(L) 8.4 - 10.2 mg/dL 04/13/2025 4:[address] [facility] Phosphorus 3.5 2.8 - 5.1 mg/dL 04/13/2025 4:[address] [facility] Anion Gap 8 6 - 16 04/13/2025 4:[address] [facility] BUN/Creatinine Ratio <8 7 - 23 04/13/2025 4:[address] [facility] Osmolality Calculated <286 275 - 295 mOsm/kg 04/13/2025 4:[address] [facility] eGFR by CKD-EPI >90 >=90 mL/min/1.7 3 m2 04/13/2025 4:[address] [facility] Blood BLOOD SPECIMEN / Unknown Lab Venipuncture / Unknown 04/13/2025 2:41 PM CDT 04/13/2025 3:31 PM CDT Virginia Jacobs MD LAB - CHEMISTRY ORDERABLES Brittny beavers Result Performing Organization Address [facility]/State/ZIP Co de Phone Number [address] [address], [facility] [phone] * MAGNESIUM BLOOD (04/13/2025 2:41 PM CDT) Only the most recent of8 resultswithin the time period is included. Magnesium 1.6 1.6 - 2.6 mg/dL 04/13/2025 4:[address] [facility] Blood BLOOD SPECIMEN / Unknown Lab Venipuncture / Unknown 04/13/2025 2:41 PM CDT 04/13/2025 3:31 PM CDT Virginia Jacobs MD LAB - CHEMISTRY ORDERABLES Brittny beavers Result [address] [place] [address], [facility] [phone] * FL SWALLOWING FUNCTION STUDY (04/13/2025 10:54 AM CDT) Anatomical Region Laterality Modality Chest Digital Radiogra phy 04/13/2025 4:32 PM CDT Narrative 04/14/2025 1:26 PM CDT PROCEDURE: FL SWALLOWING FUNCTION STUDY, DATE/TIME OF EXAM: 04/13/2025 10:56 AM, LOCATION [facility] INDICATION: K56.1: Intussusception (HCC) ADDITIONAL CLINICAL INFORMATION: Ordering Provider Reason For Exam: swallow eval COMPARISON: None. FLUOROSCOPY DOSE: 4.97 mGy Reference air kerma (ka,r). FLUOROSCOPY TIME: 1.73 minutes; Number of images: [id number] TECHNIQUE: Modified barium swallow fluoroscopy performed in conjunction with speech pathology staff. The speech pathologist administered varying thickness barium liquids and solids under direct cine fluoroscopy. FINDINGS/IMPRESSION: Fluoroscopic assistance was provided for a modified barium swallow test performed by Speech Therapy. Please see the Speech Therapy report for details. Report dictated by Paulo Lemus DO (residential caregiver). IFranklin MD have personally reviewed and interpreted this examination/study. > Interpreting Provider: Franklin Martinez MD on 04/14/2025 1:26 PM Procedure Note Franklin Martinez MD - 04/14/2025 PROCEDURE: FL SWALLOWING FUNCTION STUDY, DATE/TIME OF EXAM: 04/13/2025 10:56 AM, LOCATION [facility] INDICATION: K56.1: Intussusception (HCC) ADDITIONAL CLINICAL INFORMATION: Ordering Provider Reason For Exam: swallow eval COMPARISON: None. FLUOROSCOPY DOSE: 4.97 mGy Reference air kerma (ka,r). FLUOROSCOPY TIME: 1.73 minutes; Number of images: [id number] TECHNIQUE: Modified barium swallow fluoroscopy performed in conjunction with speech pathology staff. The speech pathologist administered varying thickness barium liquids and solids under direct cine fluoroscopy. FINDINGS/IMPRESSION: Fluoroscopic assistance was provided for a modified barium swallow test performed by Speech Therapy. Please see the Speech Therapy report for details. Report dictated by Paulo Lemus DO (residential caregiver). I, Franklin Martinez MD have personally reviewed and interpreted this examination/study. > Interpreting Provider: Franklin Martinez MD on 04/14/2025 1:26 PM Virginia Jacobs MD FLUOROSCOPY ORDERABLES Final Re sult * (ABNORMAL) CBC W/O DIFFERENTIAL (04/13/2025 3:10 AM CDT) Only the most recent of6 resultswithin the time period is included. WBC 9.0 4.0 - 10.7 x10E9/L 04/13/2025 4:[address] [facility] RBC Count 4.61 4.30 - 5.80 x10E12/L 04/13/2025 4:[address] [facility] Hemoglobin 12.7(L) 13.3 - 17.5 g/dL 04/13/2025 4:[address] [facility] Hematocrit 38.8 38.7 - 51.1 % 04/13/2025 4:[address] [facility] MCV 84.2 80.0 - 98.0 fL 04/13/2025 4:[address] [facility] MCH 27.5 26.7 - 33.6 pg 04/13/2025 4:[address] [facility] MCHC 32.7 31.7 - 36.3 g/dL 04/13/2025 4:[address] [facility] RDW-CV 14.4 11.3 - 14.8 % 04/13/2025 4:[address] [facility] Platelet Count 328 150 - 420 x10E9/L 04/13/2025 4:[address] [facility] MPV 9.0 7.8 - 11.4 fL 04/13/2025 4:[address] [facility] Blood BLOOD SPECIMEN / Unknown Lab Venipuncture / Unknown 04/13/2025 3:10 AM CDT 04/13/2025 3:51 AM CDT us Yossi Reynolds MD LAB - HEMATOLOGY ORDERABLES Brittny beavers Result [facility] [address] [place] [phone], [facility] [phone] * XR Abdomen Kub Portable (04/12/2025 2:59 PM CDT) Anatomical Region Laterality Modality Abdomen Digital Radiogra phy 04/12/2025 3:35 PM CDT Impressions 04/13/2025 6:41 PM CDT Impression: A gastrostomy tube projects over the epigastric region. Contrast flows through the gastrostomy tube into the stomach, duodenum, and proximal jejunal loop without evidence of extraluminal extravasation. There is no dilatation of small or large bowel. Evaluation for pneumoperitoneum is limited on supine imaging. The visible osseous structures are intact. Small right pleural effusion with adjacent atelectasis. > Dictated by Paulo Lemus DO (Engineering Executive), 04/12/2025 3:36 PM. ITrenton MD have personally reviewed and interpreted this examination/study. > Interpreting Provider: Trenton Lopez MD on 04/13/2025 6:41 PM Narrative 04/13/2025 6:41 PM CDT PROCEDURE: XR ABDOMEN KUB PORTABLE, DATE/TIME OF EXAM: 04/12/2025 2:59 PM, LOCATION [facility] INDICATION: K94.23: Malfunction of gastrostomy tube (HCC) ADDITIONAL CLINICAL INFORMATION: Ordering Provider Reason For Exam: G tube placement COMPARISON: None. Procedure Note Trenton Lopez MD - 04/13/2025 PROCEDURE: XR ABDOMEN KUB PORTABLE, DATE/TIME OF EXAM: 04/12/2025 2:59PM, LOCATION [facility] INDICATION: K94.23: Malfunction of gastrostomy tube (HCC) ADDITIONAL CLINICAL INFORMATION: Ordering Provider Reason For Exam: G tube placement COMPARISON: None. Impression: A gastrostomy tube projects over the epigastric region. Contrast flows through the gastrostomy tube into the stomach, duodenum, and proximal jejunal loop without evidence of extraluminal extravasation. There is no dilatation of small or large bowel. Evaluation for pneumoperitoneum is limited on supine imaging. The visible osseous structures are intact.Small right pleural effusion with adjacent atelectasis. > Dictated by Paulo Lemus DO (Engineering Executive), 04/12/2025 3:36 PM. I, Trenton Lopez MD have personally reviewed and interpreted this examination/study. > Interpreting Provider: Trenton Lopez MD on 04/13/2025 6:41 PM Virginia Jacobs MD DIAGNOSTIC IMAGING ORDERABLES F inal Result * ETT LINE PERFORMABLE (04/11/2025 2:16 PM CDT) Narrative Shahid Hanna [facility] - 04/11/2025 2:16 PM CDT Shahid Hanna CAA 04/11/2025 2:17 PM Endotracheal Tube Placement: Patient Location: OR. Intubation Event Date/Time: 04/11/2025 2:12 PM Procedure: intubation ([id number]) Procedure Section: Induction: rapid sequence Mask Ventilation: not attempted. Blade Type: Bryant Blade Size: 3 Laryngoscopy View: grade 3 (epiglottis) Intubation Adjuncts: cricoid pressure, stylet and Eschmann introducer Tube: endotracheal tube Placement: oral Tube type: cuff - inflated Tube Size (MM): 7 Depth of Insertion (CM): 22 Measured From: lips Cuff Inflated With: air Number of Attempts: 1. Placement Verified By: direct visualization, bilateral breath sounds, chest auscultation and CO2 monitor Tube secured with: adhesive tape and ETT christensen. Dentition unchanged? Yes Difficult Airway? No. Procedure Start Time: 04/11/2025 2:12 PM. Staff Section Anesthesia Provider: Sayda Solano APRN-MOLD FORMS BUILDER, Performed the procedure Provider #1: Nancy Nolan MD. Nancy Nolan MD GENERAL ANESTHESIA ORDERABLES Fi nal Result * EGD (04/11/2025 2:03 PM CDT) Report Endoscopy POC Endoscopy Department Report __ _ Patient Name: Fabricio Swanson Procedure Date: 04/11/2025 2:03 PM Date of : 1980 Classification: Inpatient Gender: Male Ethnicity: Not or Race: Black or __ _ Providers: Alanis Pinto DO, Halim Bou Daher (Fellow) Referring MD: Procedure: Upper GI endoscopy Indications: Abnormal CT of the GI tract Medications: See the Anesthesia note for documentation of the administered medications Description of Procedure: Pre-Anesthesia Assessment: - Prior to the procedure, a History and Physical was performed, and patient medications and allergies were reviewed. The patient's tolerance of previous anesthesia was also reviewed. The risks and benefits of the procedure and the sedation options and risks were discussed with the patient. All questions were answered, and informed consent was obtained. Prior Anticoagulants: The patient has taken no anticoagulant or antiplatelet agents. ASA Grade Assessment: II - A patient with mild systemic disease. After reviewing the risks and benefits, the patient was deemed in satisfactory condition to undergo the procedure. After obtaining informed consent, the endoscope was passed under direct vision. Throughout the procedure, the patient's blood pressure, pulse, and oxygen saturations were monitored continuously. The [id number] was introduced through the mouth, and advanced to the third part of duodenum. The upper GI endoscopy was accomplished without difficulty. The patient tolerated the procedure well. Findings: The examined esophagus was normal. A 3 cm hiatal hernia was present. The gastroesophageal flap valve was visualized endoscopically and classified as Hill Grade IV (no fold, wide open lumen, hiatal hernia present). There was evidence of an intact gastrostomy with a patent G-tube present in the gastric body with a J-limb extending into the second portion of the duodenum. . The PEG-J required removal because it developed complications. The PEG-J was removed under endoscopic vision. An externally removable button gastrostomy (ARYA-CHRISTENSEN) tube was lubricated. The replacement tube was placed using the existing gastrostomy port. The final position of the gastrostomy tube was confirmed by relook endoscopy. The final tension and compression of the abdominal wall by the PEG tube and external bumper were checked. The tube was capped, and the tube site was cleaned and dressed. The exam of the duodenum was otherwise normal. Estimated Blood Loss: Estimated blood loss: none. Complications: No immediate complications. Impression: - Large, 3cm, hiatal hernia, hill grade IV. - Chronically dilated stomach. - G-J tube with distal balloon was removed under endoscopic guidance as it was calling intussusception. - An 18F Arya-Christensen G tube was placed through existing gastrostomy. Recommendation: - Return patient to [facility] for ongoing care. - Start using new feeding tube immediately. Start at 15cc/h and titrate up to goal determined by nutrition recommendations. Monitor residuals. If patient does not tolerate gastric feeds, then he may need a direct jejunal feeding tube that may require surgical placement. - Continue present medications. Attending Participation: I was present and participated during the entire procedure, including non-christensen portions. Procedure Code(s): --- Professional --- 35242, 22, Esophagogastroduode noscopy, flexible, transoral; with directed placement of percutaneous gastrostomy tube Diagnosis Code(s): --- Professional --- K44.9, Diaphragmatic hernia without obstruction or gangrene Z93.1, Gastrostomy status K94.20, Gastrostomy complication, unspecified R93.3, Abnormal findings on diagnostic imaging of other parts of digestive tract CPT copyright 2021 [employer]. All rights reserved. The codes documented in this report are preliminary and upon risk reduction counselor review may be revised to meet current compliance requirements. Alanis Pinto DO 04/11/2025 3:15:56 PM This report has been signed electronically. Note Initiated On: 04/11/2025 2:03 PM Number of Addenda: [address] [employer] 04/11/2025 2:03 PM CDT Yossi Reynolds MD GI PROCEDURE ORDERABLES Edited R esult - Final Performing Organization Address [facility]/ZIP Co de Phone Number [facility] * EKG 12-Lead (04/11/2025 9:08 AM CDT) Ventricular Rate 86 BPM H MUSE Atrial Rate 86 BPM [facility] P-R Interval 130 ms [facility] QRS Duration ms 82 ms [facility] Q-T Interval ms 352 ms [facility] QTC Calculation (Bezet) 421 ms SL MUSE Calculated P [place] 35 degrees [facility] MUSE Calculated R [place] 48 degrees SL MUSE Calculated T [place] 92 degrees [facility] Interpretation EKG NORMAL SINUS RHYTHM NONSPECIFIC T WAVE ABNORMALITY ABNORMAL ECG NO PREVIOUS ECGS AVAILABLE Confirmed by JOANN LEVY MD ([id number]) on 04/16/2025 3:55:17 PM [facility] 04/11/2025 9:08 AM CDT 04/16/2025 3:55 PM CDT Yossi Reynolds MD ECG ORDERABLES Edited Result - Final Performing Organization Address [facility] [facility] de Phone Number [facility] * GLUCOSE - POINT OF CARE (04/09/2025 8:33 AM CDT) Glucose WB/POC 85 70 - 99 mg/dL 04/09/2025 8:37 AM CDT [facility] Specimen Type Cap Fingerstick 2024 8:37 AM CDT [facility] Blood BLOOD SPECIMEN / Unknown 04/09/2025 8:33 AM CDT 04/09/2025 8:37 AM CDT us Yossi Reynolds MD LAB - POINT OF CARE ORDERABLES F inal Result Performing Organization Address City/[facility]/ZIP Co de Phone Number [facility] [address] [place] [address], [place] [phone] * (ABNORMAL) URINALYSIS REFLEX MICROSCOPIC REFLEX CULTURE (04/07/2025 5:24 AM [facility]) Color UA Yellow Yellow, Straw 04/07/2025 6:[address] [facility] Clarity UA Turbid(A) Clear 04/07/2025 6:[address] [facility] Glucose UA Normal Normal 04/07/2025 6:[address] [facility] Bilirubin UA Negative Negative 04/07/2025 6:[address] [facility] Ketone UA 4+(A) Negative 04/07/2025 6:[address] [facility] Specific [place] UA 1.035(H) 1.005 - 1.030 04/07/2025 6:[address] [facility] Blood UA Negative Negative 04/07/2025 6:[address] [facility] pH UA 6.0 5.0 - 8.0 pH 04/07/2025 6:[address] [facility] Protein UA 1+(A) Negative 04/07/2025 6:[address] [facility] Urobilinogen UA Normal Normal mg/dL 04/07/2025 6:[address] [facility] Nitrite UA Negative Negative 04/07/2025 6:[address] [facility] Leukocyte Esterase UA 500 ELLIS/uL(A) Negative 04/07/2025 6:[address] [facility] RBC UA 11-20(A) 0 - 5 # /hpf 04/07/2025 6:[address] [facility] WBC UA 51-100(A) 0 - 5 # /hpf 04/07/2025 6:[address] [facility] Bacteria UA Trace(A) None Seen 04/07/2025 6:[address] [facility] Squamous Epithelial Cells 11-20 0 - 5 /hpf 04/07/2025 6:[address] [facility] Mucus UA 4+ /LPF 04/07/2025 6:[address] [facility] Reflex Status Culture to follow 04/07/2025 6:[address] [facility] Urine URINE SPECIMEN OBTAINED BY CLEAN CATCH PROCEDURE / Unknown Collection / Unknown 04/07/2025 5:24 AM CDT 04/07/2025 5:28 AM CDT Curt Leon MD LAB - URINALYSIS ORDERABLES Final Result Performing Organization Address City/[facility]/ZIP Co de Phone Number [facility] [address] [place] [address], [facility] [phone] * CULTURE URINE (04/07/2025 5:24 AM CDT) Pathologist [facility] Culture Urine 10,000-50,000 CFU/mL urogenital nayeli ARYA 04/09/2025 4:52 AM CDT [facility] Urine URINE SPECIMEN OBTAINED BY CLEAN CATCH PROCEDURE / Unknown Collection / Unknown 04/07/2025 5:24 AM CDT 04/07/2025 5:28 AM CDT Curt Leon MD LAB - MICROBIOLOGY ORDERABLE S Final Result Performing Organization Address City/[facility] Co de Phone Number [facility] [address] [place] [address], [facility] [phone] * CT Chest Abdomen Pelvis W Cont (04/07/2025 4:21 AM CDT) Anatomical Region Laterality Modality Chest, Abdomen, Pelvis Computed Tomography 04/07/2025 4:26 AM CDT Impressions 04/07/2025 9:20 AM CDT Impression: 1.Postsurgical changes of percutaneous gastrojejunostomy tube placement with inflated balloon terminating within the jejunum. There is telescoping of 2 segments of jejunum in the left side of the abdomen proximal to the balloon compatible with intussusception. 2.Postsurgical changes of sigmoidectomy with left lower quadrant ostomy. No signs of obstruction. 3.Apparent wall thickening of the urinary bladder could reflect the nondistended state. Recommend correlation with urinalysis to assess for cystitis. Neurogenic bladder is an additional consideration. 4.Significant bullous emphysematous changes about the left greater than right lungs. > Dictated by Ramírez Blanco MD (residential caregiver). I, Isra Simmons MD have personally reviewed and interpreted this examination/study. > Interpreting Provider: Irsa Simmons MD on 04/07/2025 9:20 AM Narrative 04/07/2025 9:20 AM CDT PROCEDURE: CT CHEST ABDOMEN PELVIS W CONT, DATE/TIME OF EXAM: 04/07/2025 4:22 AM, LOCATION [facility] INDICATION: K94.23: Malfunction of gastrostomy tube (HCC) ADDITIONAL CLINICAL INFORMATION: Ordering Provider Reason For Exam: Intussception COMPARISON: None. TECHNIQUE: CT of the chest, abdomen, and pelvis was performed after the uneventful administration of 100 mL of Isovue 370 intravenous contrast according to standard protocol. Findings: Chest: Lower Neck and Axillae: Normal. Lungs: Significant bullous emphysematous changes about the left greater than right lungs. Bibasilar atelectasis. No suspicious pulmonary nodules are identified. No pleural fluid or pneumothorax is present. Heart and Pericardium: The cardiac chambers are normal in size. No pericardial fluid or thickening is present. Mediastinum and Rach: No mediastinal hemorrhage is present. No enlarged lymph nodes are present. Thoracic Vasculature: No vascular abnormality is present. Abdomen/pelvis: Partially limited evaluation of the upper abdomen secondary to motion artifact. Liver: Subcentimeter hypodensities within hepatic segments 5/6 are too small to characterize, but statistically likely represent hepatic cysts. There is nonmasslike subcapsular hyperenhancement about the inferior aspect of the right hepatic lobe, possibly representing transient hepatic attenuation differences. Gallbladder and Bile Ducts: The gallbladder is normal. There is no intra or extrahepatic biliary ductal dilatation. Spleen: Normal. Small adjacent splenule. Pancreas: Normal. Adrenals: Normal. Kidneys: There are multiple left-sided simple renal cysts measuring up to 1.7 cm in diameter. Otherwise, the bilateral kidneys enhance symmetrically without evidence of hydronephrosis or nephrolithiasis. Gastrointestinal: Postsurgical changes of percutaneous gastrojejunostomy tube placement seen entering the upper abdomen through the midline into the gastric antrum with inflated balloon terminating within the jejunum. There is telescoping of 2 segments of jejunum proximal to the inflated GJ tube balloon compatible with intussusception (series 3 image 104 and 115). Postsurgical changes of sigmoidectomy with left lower quadrant ostomy. No signs of obstruction. Normal appendix. Mesentery/Peritoneum/Retroperitoneum: No free intraperitoneal air. No free fluid in the abdomen or pelvis. Bladder: Nondistended with apparent wall thickening. Reproductive Organs: The prostate is normal. Abdominal Vasculature: No vascular abnormality is present. Bones: Bone windows demonstrate no suspicious lytic or blastic lesions. The visible osseous structures are intact. Soft tissues: Normal. Procedure Note Isra Simmons MD - 04/07/2025 PROCEDURE: CT CHEST ABDOMEN PELVIS W CONT, DATE/TIME OF EXAM:04/07/2025 4:22 AM, LOCATION [facility] INDICATION: K94.23: Malfunction of gastrostomy tube (HCC) ADDITIONAL CLINICAL INFORMATION: Ordering Provider Reason For Exam: Intussception COMPARISON: None. TECHNIQUE: CT of the chest, abdomen, and pelvis was performed after the uneventful administration of 100 mL of Isovue 370 intravenous contrast according to standard protocol. Findings: Chest: Lower Neck and Axillae: Normal. Lungs: Significant bullous emphysematous changes about the left greater thanright lungs. Bibasilar atelectasis. No suspicious pulmonary nodules are identified. No pleural fluid or pneumothorax is present. Heart and Pericardium: The cardiac chambers are normal in size. No pericardial fluid orthickening is present. Mediastinum and Rach: No mediastinal hemorrhage is present. No enlarged lymph nodes arepresent. Thoracic Vasculature: No vascular abnormality is present. Abdomen/pelvis: Partially limited evaluation of the upper abdomen secondary to motion artifact. Liver: Subcentimeter hypodensities within hepatic segments 5/6 are too small to characterize, but statistically likely represent hepatic cysts. There is nonmasslike subcapsular hyperenhancement about the inferior aspect ofthe right hepatic lobe, possibly representing transient hepatic attenuation differences. Gallbladder and Bile Ducts: The gallbladder is normal. There is no intra or extrahepatic biliaryductal dilatation. Spleen: Normal. Small adjacent splenule. Pancreas: Normal. Adrenals: Normal. Kidneys: There are multiple left-sided simple renal cysts measuring up to 1.7 cmin diameter. Otherwise, the bilateral kidneys enhance symmetrically without evidence of hydronephrosis or nephrolithiasis. Gastrointestinal: Postsurgical changes of percutaneous gastrojejunostomy tube placementseen entering the upper abdomen through the midline into the gastric antrumwith inflated balloon terminating within the jejunum. There is telescoping of2 segments of jejunum proximal to the inflated GJ tube balloon compatible with intussusception (series 3 image 104 and 115). Postsurgical changesof sigmoidectomy with left lower quadrant ostomy. No signs of obstruction. Normal appendix. Mesentery/Peritoneum/Retroperitoneum: No free intraperitoneal air. No free fluid in the abdomen or pelvis. Bladder: Nondistended with apparent wall thickening. Reproductive Organs: The prostate is normal. Abdominal Vasculature: No vascular abnormality is present. Bones: Bone windows demonstrate no suspicious lytic or blastic lesions. The visible osseous structures are intact. Soft tissues: Normal. Impression: 1.Postsurgical changes of percutaneous gastrojejunostomy tube placement with inflated balloon terminating within the jejunum. There istelescoping of 2 segments of jejunum in the left side of the abdomen proximal to the balloon compatible with intussusception. 2.Postsurgical changes of sigmoidectomy with left lower quadrant ostomy.No signs of obstruction. 3.Apparent wall thickening of the urinary bladder could reflect the nondistended state. Recommend correlation with urinalysis to assess for cystitis. Neurogenic bladder is an additional consideration. 4.Significant bullous emphysematous changes about the left greater than right lungs. > Dictated by Ramírez Blanco MD (residential caregiver). I, Isra Simmons MD have personally reviewed and interpreted this examination/study. > Interpreting Provider: Isra Simmons MD on 04/07/2025 9:20 AM Curt Leon MD CT ORDERABLES Final Result * (ABNORMAL) PT-INR [facility] (04/07/2025 2:25 AM CDT) PT 15.1(H) 12.1 - 14.8 Seconds 04/07/2025 3:17 AM CDT [facility] INR 1.2 See Comment 04/07/2025 3:17 AM T [facility] Comment:The suggested therap eutic range for standard coumadin (warfarin) therapy is an INR of 2.0-3.0. For high-risk patients (Mechanical Mitral Valve Prosthesis, etc.), the suggested prophylactic therapeutic range is an INR of 2.5-3.5. Blood BLOOD SPECIMEN / Unknown Venipuncture / Unknown 04/07/2025 2:25 AM CDT 04/07/2025 2:51 AM CDT Curt Leon MD LAB - COAGULATION ORDERABLES Final Result [facility] [address] [place] [address], [facility] [phone] * CULTURE BLOOD (04/07/2025 2:25 AM CDT) Only the most recent of2 resultswithin the time period is included. Culture No growth day 5 ARYA 04/12/2025 8:30 AM CDT [facility] Blood PERIPHERAL BLOOD / Unknown Venipuncture / Unknown 04/07/2025 2:25 AM CDT 04/07/2025 2:37 AM CDT Curt Leon MD LAB - MICROBIOLOGY ORDERABLE S Final Result Performing Organization Address City/[facility]/ZIP Co de Phone Number [facility] [address] [place] [address], [facility] [phone] * (ABNORMAL) CBC W AUTO DIFFERENTIAL (04/07/2025 2:25 AM CDT) WBC 13.6(H) 4.0 - 10.7 x10E9/L 04/07/2025 2:59 AM CDT [facility] RBC Count 5.27 4.30 - 5.80 x10E12/L 04/07/2025 2:59 AM CDT [facility] Hemoglobin 14.4 13.3 - 17.5 g/dL 04/07/2025 2:59 AM CDT [facility] Hematocrit 44.9 38.7 - 51.1 % 04/07/2025 2:59 AM CDT [facility] MCV 85.2 80.0 - 98.0 fL 04/07/2025 2:59 AM CDT [facility] MCH 27.3 26.7 - 33.6 pg 04/07/2025 2:59 AM CDT [facility] MCHC 32.1 31.7 - 36.3 g/dL 04/07/2025 2:59 AM T [facility] RDW-CV 13.5 11.3 - 14.8 % 04/07/2025 2:[address] [facility] Platelet Count 341 150 - 420 x10E9/L 04/07/2025 2:[address] [facility] MPV 8.9 7.8 - 11.4 fL 04/07/2025 2:[address] [facility] Neutrophil % 69.8 41.0 - 74.0 % 04/07/2025 2:[address] [facility] Lymphocyte % 19.8 17.0 - 47.0 % 04/07/2025 2:[address] [facility] Monocyte % 9.0 3.0 - 11.0 % 04/07/2025 2:[address] [facility] Eosinophil % 0.8 0.0 - 7.0 % 04/07/2025 2:[address] [facility] Basophil % 0.2 0.0 - 1.6 % 04/07/2025 2:[address] [facility] Immature Granulocytes % 0.4 0.0 - 1.0 % 04/07/2025 2:[address] [facility] Neutrophil Absolute 9.50(H) 1.60 - 7.50 x10E9/L 04/07/2025 2:[address] [facility] Lymphocyte Absolute 2.69 1.00 - 4.40 x10E9/L 04/07/2025 2:[address] [facility] Monocyte Absolute 1.22(H) 0.15 - 1.00 x10E9/L 04/07/2025 2:[address] [facility] Eosinophil Absolute 0.11 0.00 - 0.60 x10E9/L 04/07/2025 2:[address] [facility] Basophil Absolute 0.03 0.00 - 0.13 x10E9/L 04/07/2025 2:[address] [facility] Blood BLOOD SPECIMEN / Unknown Venipuncture / Unknown 04/07/2025 2:25 AM CDT 04/07/2025 2:54 AM T Curt Leon MD LAB - HEMATOLOGY ORDERABLES Final Result [facility] [address] [place] [address], [facility] [phone] * (ABNORMAL) COMPREHENSIVE METABOLIC PANEL (04/07/2025 2:25 AM [facility]) BUN 9 7 - 26 mg/dL 04/07/2025 3:[address] [facility] Creatinine 0.60(L) 0.71 - 1.16 mg/dL 04/07/2025 3:[address] [facility] Sodium 148(H) 136 - 145 mmol/L 04/07/2025 3:[address] [facility] Potassium 3.6 3.5 - 4.5 mmol/L 04/07/2025 3:[address] [facility] Chloride 110(H) 98 - 107 mmol/L 04/07/2025 3:[address] [facility] CO2 21(L) 22 - 29 mmol/L 04/07/2025 3:[address] [facility] Glucose 101(H) 70 - 99 mg/dL 04/07/2025 3:[address] [facility] Calcium 8.9 8.4 - 10.2 mg/dL 04/07/2025 3:[address] [facility] Protein Total 7.8 6.0 - 8.3 g/dL 04/07/2025 3:[address] [facility] Albumin 3.5 3.4 - 5.0 g/dL 04/07/2025 3:[address] [facility] Bilirubin Total 0.5 0.2 - 1.2 mg/dL 04/07/2025 3:[address] [facility] Alkaline Phosphatase 59 40 - 150 U/L 04/07/2025 3:[address] [facility] ALT 10 5 - 55 U/L 04/07/2025 3:[address] [facility] AST 16 5 - 34 U/L 04/07/2025 3:[address] [facility] Anion Gap 17(H) 6 - 16 04/07/2025 3:[address] [facility] BUN/Creatinine Ratio 15 7 - 23 04/07/2025 3:23 AM CDT [facility] Osmolality Calculated 305(H) 275 - 295 mOsm/kg 04/07/2025 3:23 AM CDT [facility] Albumin/Globulin Ratio 0.8(L) 1.1 - 2.3 04/07/2025 3:23 AM CDT [facility] eGFR by CKD-EPI >90 >=90 mL/min/1.7 3 m2 04/07/2025 3:23 AM CDT [facility] Blood BLOOD SPECIMEN / Unknown Venipuncture / Unknown 04/07/2025 2:25 AM CDT 04/07/2025 2:53 AM CDT us Curt Leon MD LAB - CHEMISTRY ORDERABLES F inal Result Performing Organization Address City/[facility]/ZIP Co de Phone Number [address] [address], [facility] [phone] * (ABNORMAL) PHOSPHORUS BLOOD (04/07/2025 2:25 AM CDT) Phosphorus 2.7(L) 2.8 - 5.1 mg/dL 04/07/2025 3:23 AM CDT [facility] Blood BLOOD SPECIMEN / Unknown Venipuncture / Unknown 04/07/2025 2:25 AM CDT 04/07/2025 2:53 AM CDT us Curt Leon MD LAB - CHEMISTRY ORDERABLES F inal Result [address] [address], [place] [phone] * LACTIC ACID BLOOD (04/07/2025 2:25 AM CDT) Lactic Acid-Stat 0.9 <=2.0 mmol/L 04/07/2025 3:21 AM CDT [facility] Blood BLOOD SPECIMEN / Unknown Venipuncture / Unknown 04/07/2025 2:25 AM CDT 04/07/2025 2:50 AM CDT us Curt Leon MD LAB - CHEMISTRY ORDERABLES F inal Result [facility] [address] [place] [address], [facility] [phone] * XR Chest Outside (04/02/2025 4:00 PM CDT) Narrative [facility] - 04/12/2025 4:00 PM CDT This is a study from an outside facility that has been uploaded into PACS. us Provider [facility] Final Result [facility] from Last [id number] Advance Directives * Full Code (Latest Code Status on File) Date Activated Date Inactivated Comments 04/06/2025 11:57 PM 04/13/2025 10:49 PM Care Teams Port Engineer Relationship Specialty Start Date End Date Harmony Palma MD [address] [place] [address] PCP - General 10/29/22
[2025-06-16 10:57] VITALS: BP 122/90; PULSE 98; RESP 16; O2SAT 97
--- NOTE | 2025-06-16 11:48 | PC.NURSE ---
G tube replaced by EDP, Avanos 16Fr, EDP applied dressing. Abdominal binder then applied
== END 2025-06-16 13:59 ==
PROVIDERS: Emergency Provider Physician Assistant; PCP Internal Medicine
DX: K94.23 Gastrostomy malfunction (principal); F84.0 Autistic disorder
CPT/HCPCS: 99283